=== PATIENT | male | born 1935 | race Caucasian/White ===

== ENCOUNTER 2022-08-03 13:15 | Inpatient (IN) ==
[~2022-08-03 13:15] MED LIST: KETAMINE 50 MG/ML ML IV PRN; MIDAZOLAM 2 MG/2 ML VIAL IV SCH; PROPOFOL 200 MG/20 ML VIAL IV SCH
[2022-08-03] MEDS ORDERED: PIPERACILLIN SODIUM/TAZOBACTAM 4.5 GM in DEXTROSE 5% IN WATER 50 ML IV ONE (15:45)
[2022-08-03] MEDS: fentaNYL 100 MCG/2 ML VIAL IV PRN ×6 (15:49→22:42)
[2022-08-03] MEDS ORDERED: ONDANSETRON 4 MG/2 ML VIAL IV ONE (16:22)
[2022-08-03] MEDS: LACTATED RINGERS 1,000 ML IV SCH ×3 (16:30→22:29)
[2022-08-03] MEDS ORDERED: ONDANSETRON 4 MG/2 ML VIAL ONE ×2 (16:34→18:13)
[2022-08-03] MEDS ORDERED: 0.9 % SODIUM CHLORIDE 250 ML IV ONE (16:56)
[2022-08-03] MEDS ORDERED: [UNRECOGNIZED DRUG - OTHER] IV ONE (17:15)
[2022-08-03] MEDS ORDERED: 0.9 % SODIUM CHLORIDE 250 ML IV SCH (17:15)
[2022-08-03] MEDS ORDERED: HUM PROTHROMBIN CPLX IV ONE (17:15)
[2022-08-03] MEDS ORDERED: EMPTYBAG IV ONE (17:15)
--- NOTE | 2022-08-03 17:30 | Internal Medicine Consult Note ---
HPI Data of Consult Consult date: 08/03/22 Primary Care Provider: Sai Elizabeth DO Consult Narrative Patient Information: Note initiated : 08/03/22 at 5:27 pm Service Date, if different from initiated Date: [] Patient: Fei Rodrigues 86 y/o M admitted on 08/03/22 for Colonoscopy. Chief Complaint: [] cc:: Patient presented for elective colonoscopy due to recurrent diarrhea. The procedure was complicated by perforation. Dr. Mcfarland surgeon was contacted. Patient is on Eliquis, last taken yesterday morning. Kcentra ordered. Patient will need urgent ex lap. Patient denies any chest pain or shortness of breath. Does have abdominal pain. No fevers or chills. Review of Systems: Positives as above. Denies headache/fever/chills/nausea/vomiting/chest pain/cough/dyspnea. Remaining 10 point review of system reviewed negative. CC: Isma Mcfarland MD [facility] All Active Problems Nausea (Acute) Tingling sensation (Acute) Hemarthrosis of knee, right (Acute) Knee injury (Acute) Unstable right knee (Acute) Pain and swelling of right knee (Acute) Medicare annual wellness visit, initial (Acute) PAF (paroxysmal atrial fibrillation) (Chronic) Sinus node dysfunction (Chronic) Nonsustained ventricular tachycardia (Chronic) Lower urinary obstructive symptom (Chronic) BPH w urinary obs/LUTS (Chronic) Diarrhea (Chronic) Closed rib fracture (Acute) CAD (coronary artery disease) (Chronic) Ventricular tachycardia (Acute) Syncope, near (Acute) Hearing loss (Chronic) Cataracts, bilateral (Chronic) Vertigo (Chronic) Malignant neoplasm of bronchus and lung, unspecified site (Chronic) Positional vertigo (Acute) Presence of cardiac pacemaker (Chronic) Bilateral hydrocele (Chronic) Malignant neoplasm of lung (Chronic) Bruit of left carotid artery (Chronic) Weight loss (Chronic) Vasovagal syncope (Chronic 12/18/05) Acute sinusitis (Chronic 02/05/14) Schatzki's ring (Chronic) Lymphadenopathy (Chronic) Peripheral vascular disease (Chronic) Osteoporosis (Chronic) Osteoarthritis (Chronic) Onychomycosis (Chronic) Obstructive uropathy (Chronic) Lichen planus (Chronic) Right inguinal pain (Chronic) Accelerated idioventricular rhythm (Chronic) Nocturnal hypoxemia (Chronic) Hypotension (Chronic) Hyperlipidemia (Chronic) Hydrocele (Chronic 11/29/13) Hammer toe (Chronic) Family history of stress (Chronic) Esophagitis (Chronic) Enlarged prostate (Chronic) Dyspnea (Chronic) Dysphagia (Chronic 11/29/13) Dupuytren's contracture (Chronic) Depression (Chronic) Colon adenoma (Chronic) COPD (chronic obstructive pulmonary disease) (Chronic) Chronic bronchitis (Chronic) Bradycardia (Chronic 12/18/05) Low back pain (Chronic 12/24/06) Actinic keratosis (Chronic) Anemia (Chronic) Abdominal aortic aneurysm (AAA) (Chronic) Medical History Abdominal aortic aneurysm (AAA) Aortic endograft Accelerated idioventricular rhythm Actinic keratosis Acute sinusitis (02/05/14) Anemia BPH w urinary obs/LUTS Improved greatly with Flomax 0.4 mg daily. Bradycardia (12/18/05) Sinus of unknown origina Chronic bronchitis Closed fracture of wrist 10/10 right Closed hip fracture left Closed skull fracture (12/18/05) fell and hit head on the toilet, passed out. Colon adenoma 2004 COPD (chronic obstructive pulmonary disease) Depression Diarrhea Dupuytren's contracture Dysphagia (11/29/13) recurrent Dyspnea Enlarged prostate Esophagitis H/O Family history of stress Gastritis Hammer toe Right second and third toes History of blood transfusion 2 units History of ECG (09/30/15) History of echocardiogram 06/03/15 - [facility]. 03/29/19 - [facility]. History of pacemaker (06/20/10) BIOTRONIK MODEL 380492 History of tobacco abuse Stopped Hydrocele (11/29/13) Bilateral large, left greater than right Hyperlipidemia Now on atorvastatin at 20 mg each day Hypotension Beta-aniyah added Lichen planus Low back pain (12/24/06) Lower urinary obstructive symptom Denies history of BPH or urinary obstructive symptoms. States symptoms just started about 6 months ago. Prostate only 2+ today and nontender. Smooth with no nodules. AUA score is 18 today and he has mixed quality of life due to his symptoms. We will check PSA. We will get urine sample with next set of pelvic pain. Lymphadenopathy Perililar. H/O. Malignant neoplasm of bronchus and lung, unspecified site 2011 non-small cell carcinoma Medicare annual wellness visit, initial Nocturnal hypoxemia Overnight pulse ox from August 2020 shows O2 sats <88% for 56 minutes total overnight. Nonsustained ventricular tachycardia Obstructive uropathy Onychomycosis Osteoarthritis Osteoporosis Peripheral vascular disease Asymptomatic, but abnormal MAGALY -0.43 on the right Arterial duplex of bilateral lower extremities ordered Continue statin. Not on aspirin due to being anticoagulated. Right inguinal pain Schatzki's ring Sinus node dysfunction Pacemaker Squamous cell carcinoma lung Vasovagal syncope (12/18/05) and collapse Weight loss Surgical History History of biopsy (09/15/07) right flank lesion History of bronchoscopy (06/01/12) History of colonoscopy (09/06/13) Two polypoid fragments of colonic mucosa with minimal surface hyperplastic change History of esophagogastroduodenoscopy (EGD) (09/07/11) 09/07/11 MICRO: CHRONIC GASTRITIS WITH INTESTINAL METAPLASIA AND FOCAL ACUTE INFLAMMATION. CONSULT: SCHATZKI'S RING, SMALL HIATAL HERNIA, GASTRITIS. 06/30/16 Schatzki's ring dilated and Egan's esophagus. History of lobectomy of lung History of lobectomy of lung 06/11 RIGHT LOWER LOBE followed by chemotherapy History of lung biopsy (05/02/12) History of surgery (06/01/12) Mediastinoscopy History of thoracotomy (06/01/12) RIGHT LOWER LOBE WAS RESECTED THRU A LIMITED RIGHT THORACOTOMY History of tonsillectomy S/P AAA repair (~2012) Status post-operative repair of closed fracture of left hip 2009 hemiarthroplasty Family History Mother , age 76 Diabetes mellitus Heart disease Father , age 61 Heart disease Peptic ulcer Brother CAD (coronary artery disease) Social History household members: spouse housing: house lives independently: Yes marital status: occupational status: retired smoking status: Former smoker alcohol intake frequency: 0-2 drinks per day substance use type: does not use MEDS/ALLERGIES Home Medications and Allergies Home Medications Medication Instructions Recorded Confirmed Type acetaminophen 325 mg tablet 650 mg PO QDAY PRN Pain 06/07/16 08/03/22 History (Tylenol) calcium carbonate 500 mg-vitamin 1 tab PO QDAY 06/07/16 08/03/22 History D3 15 mcg (600 unit) tablet cyanocobalamin (vitamin B-12) 2,500 mcg sublingual QDAY 06/07/16 06/09/22 History 2,500 mcg sublingual tablet (Vitamin B-12) lactobac cmb #[id number] 1 cap PO QDAY 06/07/16 08/03/22 History [Probiotic and Acidophilus] multivitamin 1 each PO DAILY 06/07/16 08/03/22 History cholecalciferol (vitamin D3) 50 2,000 unit PO QDAY 01/16/19 08/03/22 History mcg (2,000 unit) capsule atorvastatin 20 mg tablet 20 mg PO QDAY 04/03/19 08/03/22 History omega-3 fatty acids 1,000 mg 1,000 mg PO QDAY 04/03/19 08/03/22 History capsule (Fish Oil Concentrate) apixaban 5 mg tablet 5 mg PO BID 09/15/20 08/03/22 History Oxygen #1 ea 10/20/20 06/09/22 Rx tamsulosin 0.4 mg capsule 0.4 mg PO QDAY #90 caps 11/09/21 08/03/22 Rx metoprolol succinate 50 mg 50 mg PO QDAY 03/18/22 08/03/22 History tablet,extended release 24 hr magnesium oxide 400 mg PO QDAY 06/09/22 08/03/22 History Allergies Allergy/AdvReac Type Severity Reaction Status Date / Time codeine AdvReac Mild Nausea Verified 08/03/22 17:15 EXAM Constitutional Vitals: Temp Pulse Resp BP Pulse Ox O2 Del Method 98.1 F 77 20 112/77 94 08/03/22 13:33 08/03/22 16:16 08/03/22 16:16 08/03/22 16:16 08/03/22 16:16 08/03/22 13:33 Exam: General: Alert, Awake, No acute Distress Eyes/N/T: EOMI, PERRL, Head/Neck: neck supple, normocephalic atraumatic CV: RRR, No murmurs, normal s1/s2 Pulm: Clear b/l, no wheezing/rhonchi/rales Abd: TTP, rigid, +BS x4 Ext: no clubbing/cyanosis/edema Neuro: Alert, no focal deficits, moves all extremities, Skin: warm/dry A/P Narrative A/P Narrative: A: *Perforated bowel, complication from colonoscopy: *h/o Afib w/PPM: on eliquis/BB *BPH: *COPD (O2@night): *Chronic diarrhea: The reason he underwent colonoscopy * P: -Dr. Mcfarland for surgical repair -diet per surgery -kcentra -monitor for bleeding -IV lopressor while npo -Home medication reconciliation -pt/ot -ppx: apixaban post-op when ok with surgery / ppi Time Spent With Patient Time: Total time spent is greater than 50% in coordination of care (as documented) at patient's floor/unit and/or counseling patient: Total time spent with greater than 50% in coordination of care (as documented) at patient's floor/unit and/or counseling patient:: Greater than 70 minutes Attestation: Multiple discussions in significant amount of time coordinating care of the patient from GI lab to where the patient needed to go and eventually to the OR.
--- NOTE | 2022-08-03 17:46 | General Surgery Consult Note ---
HPI Data of Consult Consult date: 08/03/22 Requesting physician: Steve Hernandez Primary Care Provider: Sai Elizabeth DO Consult Narrative Patient Information: Note initiated : 08/03/22 at 5:36 pm Service Date, if different from initiated Date: [] Patient: Fei Rodrigues 86 y/o M admitted on 08/03/22 for Colonoscopy. Chief Complaint: [Colonoscopic Perforation] Asked to see Mr Rodrigues after an elective Colonoscopy earlier this afternoon resulted in a Colonoscopic Perforation thought to be in the Sigmoid Colon. Patient was undergoing Lower Endoscopy for further work up and investigation of Refractory Diarrhea. He denies any prior open abdominal surgery but does have extensive past medical issues including AAA repair with Endograft, lung resection for malignancy and others as well. He is currently anticoagulated on oral Eliquis that was not held prior to his procedure today per reports. His son is in attendance as well and issues are discussed. He currently is in quite a but of abdominal pain, IVFs and IV ABs have been started. A Pacemaker is in place. cc:: CC: Isma Mcfarland MD Review of Systems All systems: reviewed and no additional remarkable complaints except as stated Review of systems: Gen no recent change ENT no change Neuro stable Pulm no recent issues Cardiac pacer in place, on Eliquis GI see HPI no changes Heme on eliquis PFSH PFSH All Active Problems (Updated 08/03/22 @ 17:56 by Isma Mcfarland MD) Colon perforation (Acute) Nausea (Acute) Tingling sensation (Acute) Hemarthrosis of knee, right (Acute) Knee injury (Acute) Unstable right knee (Acute) Pain and swelling of right knee (Acute) Medicare annual wellness visit, initial (Acute) PAF (paroxysmal atrial fibrillation) (Chronic) Sinus node dysfunction (Chronic) Nonsustained ventricular tachycardia (Chronic) Lower urinary obstructive symptom (Chronic) BPH w urinary obs/LUTS (Chronic) Diarrhea (Chronic) Closed rib fracture (Acute) CAD (coronary artery disease) (Chronic) Ventricular tachycardia (Acute) Syncope, near (Acute) Hearing loss (Chronic) Cataracts, bilateral (Chronic) Vertigo (Chronic) Malignant neoplasm of bronchus and lung, unspecified site (Chronic) Positional vertigo (Acute) Presence of cardiac pacemaker (Chronic) Bilateral hydrocele (Chronic) Malignant neoplasm of lung (Chronic) Bruit of left carotid artery (Chronic) Weight loss (Chronic) Vasovagal syncope (Chronic 12/18/05) Acute sinusitis (Chronic 02/05/14) Schatzki's ring (Chronic) Lymphadenopathy (Chronic) Peripheral vascular disease (Chronic) Osteoporosis (Chronic) Osteoarthritis (Chronic) Onychomycosis (Chronic) Obstructive uropathy (Chronic) Lichen planus (Chronic) Right inguinal pain (Chronic) Accelerated idioventricular rhythm (Chronic) Nocturnal hypoxemia (Chronic) Hypotension (Chronic) Hyperlipidemia (Chronic) Hydrocele (Chronic 11/29/13) Hammer toe (Chronic) Family history of stress (Chronic) Esophagitis (Chronic) Enlarged prostate (Chronic) Dyspnea (Chronic) Dysphagia (Chronic 11/29/13) Dupuytren's contracture (Chronic) Depression (Chronic) Colon adenoma (Chronic) COPD (chronic obstructive pulmonary disease) (Chronic) Chronic bronchitis (Chronic) Bradycardia (Chronic 12/18/05) Low back pain (Chronic 12/24/06) Actinic keratosis (Chronic) Anemia (Chronic) Abdominal aortic aneurysm (AAA) (Chronic) Medical History Abdominal aortic aneurysm (AAA) Aortic endograft Accelerated idioventricular rhythm Actinic keratosis Acute sinusitis (02/05/14) Anemia BPH w urinary obs/LUTS Improved greatly with Flomax 0.4 mg daily. Bradycardia (12/18/05) Sinus of unknown origina Chronic bronchitis Closed fracture of wrist 10/10 right Closed hip fracture left Closed skull fracture (12/18/05) fell and hit head on the toilet, passed out. Colon adenoma 2004 COPD (chronic obstructive pulmonary disease) Depression Diarrhea Dupuytren's contracture Dysphagia (11/29/13) recurrent Dyspnea Enlarged prostate Esophagitis H/O Family history of stress Gastritis Hammer toe Right second and third toes History of blood transfusion 2 units History of ECG (09/30/15) History of echocardiogram 06/03/15 - [facility]. 03/29/19 - [facility]. History of pacemaker (06/20/10) BIOTRONIK MODEL 450404 History of tobacco abuse Stopped Hydrocele (11/29/13) Bilateral large, left greater than right Hyperlipidemia Now on atorvastatin at 20 mg each day Hypotension Beta-aniyah added Lichen planus Low back pain (12/24/06) Lower urinary obstructive symptom Denies history of BPH or urinary obstructive symptoms. States symptoms just started about 6 months ago. Prostate only 2+ today and nontender. Smooth with no nodules. AUA score is 18 today and he has mixed quality of life due to his symptoms. We will check PSA. We will get urine sample with next set of pelvic pain. Lymphadenopathy Perililar. H/O. Malignant neoplasm of bronchus and lung, unspecified site 2011 non-small cell carcinoma Medicare annual wellness visit, initial Nocturnal hypoxemia Overnight pulse ox from August 2020 shows O2 sats <88% for 56 minutes total overnight. Nonsustained ventricular tachycardia Obstructive uropathy Onychomycosis Osteoarthritis Osteoporosis Peripheral vascular disease Asymptomatic, but abnormal MAGALY -0.43 on the right Arterial duplex of bilateral lower extremities ordered Continue statin. Not on aspirin due to being anticoagulated. Right inguinal pain Schatzki's ring Sinus node dysfunction Pacemaker Squamous cell carcinoma lung Vasovagal syncope (12/18/05) and collapse Weight loss Surgical History History of biopsy (09/15/07) right flank lesion History of bronchoscopy (06/01/12) History of colonoscopy (09/06/13) Two polypoid fragments of colonic mucosa with minimal surface hyperplastic change History of esophagogastroduodenoscopy (EGD) (09/07/11) 09/07/11 MICRO: CHRONIC GASTRITIS WITH INTESTINAL METAPLASIA AND FOCAL ACUTE INFLAMMATION. CONSULT: SCHATZKI'S RING, SMALL HIATAL HERNIA, GASTRITIS. 06/30/16 Schatzki's ring dilated and Egan's esophagus. History of lobectomy of lung History of lobectomy of lung 06/11 RIGHT LOWER LOBE followed by chemotherapy History of lung biopsy (05/02/12) History of surgery (06/01/12) Mediastinoscopy History of thoracotomy (06/01/12) RIGHT LOWER LOBE WAS RESECTED THRU A LIMITED RIGHT THORACOTOMY History of tonsillectomy S/P AAA repair (~2012) Status post-operative repair of closed fracture of left hip 2010 hemiarthroplasty Family History Mother , age 76 Diabetes mellitus Heart disease Father , age 61 Heart disease Peptic ulcer Brother CAD (coronary artery disease) Social History household members: spouse housing: house lives independently: Yes marital status: occupational status: retired smoking status: Former smoker alcohol intake frequency: 0-2 drinks per day substance use type: does not use MEDS/ALLERGIES Home Medications and Allergies Home Medications Medication Instructions Recorded Confirmed Type acetaminophen 325 mg tablet 650 mg PO QDAY PRN Pain 06/07/16 08/03/22 History (Tylenol) calcium carbonate 500 mg-vitamin 1 tab PO QDAY 06/07/16 08/03/22 History D3 15 mcg (600 unit) tablet cyanocobalamin (vitamin B-12) 2,500 mcg sublingual QDAY 06/07/16 06/09/22 History 2,500 mcg sublingual tablet (Vitamin B-12) lactobac cmb #[id number] 1 cap PO QDAY 06/07/16 08/03/22 History [Probiotic and Acidophilus] multivitamin 1 each PO DAILY 06/07/16 08/03/22 History cholecalciferol (vitamin D3) 50 2,000 unit PO QDAY 01/16/19 08/03/22 History mcg (2,000 unit) capsule atorvastatin 20 mg tablet 20 mg PO QDAY 04/03/19 08/03/22 History omega-3 fatty acids 1,000 mg 1,000 mg PO QDAY 04/03/19 08/03/22 History capsule (Fish Oil Concentrate) apixaban 5 mg tablet 5 mg PO BID 09/15/20 08/03/22 History Oxygen #1 ea 10/20/20 06/09/22 Rx tamsulosin 0.4 mg capsule 0.4 mg PO QDAY #90 caps 11/09/21 08/03/22 Rx metoprolol succinate 50 mg 50 mg PO QDAY 03/18/22 08/03/22 History tablet,extended release 24 hr magnesium oxide 400 mg PO QDAY 06/09/22 08/03/22 History Allergies Allergy/AdvReac Type Severity Reaction Status Date / Time codeine AdvReac Mild Nausea Verified 08/03/22 17:15 Physical Examination Vital Signs Vital signs: Temp Pulse Resp BP Pulse Ox O2 Del Method 98.1 F 77 20 112/77 94 08/03/22 13:33 08/03/22 16:16 08/03/22 16:16 08/03/22 16:16 08/03/22 16:16 08/03/22 13:33 General physical appearance General physical exam: other (conversant but in some pain and mild distress, fully alert and oriented ) Eyes Eye exam: normal ocular movement; negative icteric ENT ENT exam: normal pinna and other Head Head exam IM: Present atraumatic, normal inspection and normocephalic Neck Neck exam: other (soft and supple, non tender ) Cardiovascular Cardiovascular exam IM: Present normal rate and rhythm Respiratory Respiratory exam: normal expansion and normal respiratory effort Abdomen Abdomen: Present tender, guarding and distended Integumentary Integumentary: Present other (normal appearing intact skin ) Neurologic Neurologic: Present other (grossly intact) Results Labs Labs: All other labs normal. A/P Assessment and plan (1) Colon perforation: Assessment and plan: Colonoscopic Perforation with an Acute Abdomen Recommend Emergency Surgery as soon as his current Anticoagulation can be reliably reversed - Medicine has been consulted regarding Anticoagulation mgmt and medical issues and will manage Kcentra/planned reversal Issues discussed at length with patient and family regarding risk of adverse outcome, bleeding, , need for additional surgery, stomal diversion, bowel resection, drain placement, and other concerns with a full review of Risks, Benefits, Potential Complications and Alternative Treatment Options all of which have been discussed including option to attempt at transfer to a possible higher level of care They have agreed to and indicated a wish to proceed with planned Ex Lap, Resection, Diversion, Washout and Drainage Status: Acute Time Spent With Patient Time: Total time spent is greater than 50% in coordination of care (as documented) at patient's floor/unit and/or counseling patient:
[2022-08-03] MEDS ORDERED: CIPROFLOXACIN 400 MG/200 ML BAG IV ONE (18:00)
[2022-08-03] MEDS ORDERED: metroNIDAZOLE 500 MG/100 ML BAG IV ONE (18:01)
[2022-08-03] MEDS ORDERED: TRANEXAMIC ACID 1,000 MG/10 ML VIAL ONE (18:13)
[2022-08-03] MEDS ORDERED: MAGNESIUM SULFATE 2 GM/50 ML BAG IV ONE (18:13)
[2022-08-03] MEDS ORDERED: SUCCINYLCHOLINE 20 MG/ML ML IV ONE (18:13)
[2022-08-03] MEDS ORDERED: DEXAMETHASONE 10 MG/ML VIAL ONE (18:13)
[2022-08-03] MEDS ORDERED: PROPOFOL 200 MG/20 ML VIAL IV ONE (18:13)
[2022-08-03] MEDS ORDERED: PHENYLephrine 1 MG/10 ML SYRINGE (ANEST) ONE (18:13)
[2022-08-03] MEDS ORDERED: methylPREDNISolone SOD SUCC 125 MG/2 ML VIAL ONE (18:13)
[2022-08-03] MEDS ORDERED: KETAMINE 50 MG/ML Syringe (ANEST) IV ONE (18:13)
[2022-08-03] MEDS ORDERED: ROCURONIUM 10 MG/ML ML IV ONE (18:13)
[2022-08-03] MEDS ORDERED: HETASTARCH 6% 500 ML BAG IV ONE (18:13)
[2022-08-03] MEDS ORDERED: fentaNYL 250 MCG/5 ML VIAL IV ONE (18:13)
[2022-08-03] MEDS ORDERED: LIDOCAINE HCL/PF 100 MG/5 ML SYRINGE IV ONE (18:13)
[2022-08-03] MEDS ORDERED: ESMOLOL 100 MG/10 ML VIAL IV ONE (18:13)
[2022-08-03] MEDS ORDERED: GLYCOPYRROLATE 0.2 MG/ML VIAL IV ONE (18:13)
[2022-08-03] MEDS ORDERED: VASOPRESSIN 20 UNIT/ML VIAL ONE (18:13)
[2022-08-03] MEDS ORDERED: EPINEPHrine 1 MG/10 ML (1:10,000) SYRINGE IV ONE (18:13)
[2022-08-03 18:27] LABS: Basophils # (Auto) 0.04 K/mcL (0.00-0.30); Basophils % (Auto) 0.4 % (0.0-2.0); Eosinophils # (Auto) 0.06 K/mcL (0.00-0.70); Eosinophils % (Auto) 0.6 % (0.0-7.0); Hematocrit 43.3 % (40.1-51.0); Hemoglobin 13.8 g/dL (13.7-17.5); Lymphocytes # (Auto) 0.71 K/mcL (1.50-4.80); Lymphocytes % (Auto) 6.8 % (15.5-49.0); Mean Cell Volume 96.2 fL (80.0-100.0); Mean Corpuscular HGB Conc 31.9 g/dL (31.0-36.0); Mean Platelet Volume 10.1 fL (8.8-12.5); Monocytes # (Auto) 0.55 K/mcL (0.10-0.90); Monocytes % (Auto) 5.3 % (1.0-12.0); Neutrophils % (Auto) 86.6 % (38.0-78.0); Platelet Count 250 K/mcL (140-440); Red Cell Distribution Width 13.8 % (11.5-14.5); WBC 10.5 K/mcL (4.5-11.0)
[2022-08-03 18:48] LABS: Blood Urea Nitrogen 14 mg/dL (8-23); Calcium 9.4 mg/dL (8.6-10.4); Carbon Dioxide 23 mmol/L (22-30); Chloride 101 mmol/L (96-108); Glomerular Filtration Rate 77; Glucose 127 mg/dL (70-105)
[2022-08-03] MEDS ORDERED: METHOCARBAMOL 1,000 MG/10 ML VIAL IV PRN (20:24)
[2022-08-03] MEDS ORDERED: LACTATED RINGERS 250 ML IV PRN (20:24)
[2022-08-03] MEDS ORDERED: METOPROLOL TARTRATE 5 MG/5 ML VIAL IV PRN (20:24)
[2022-08-03] MEDS ORDERED: LABETALOL 5 MG/ML ML IV PRN (20:24)
[2022-08-03] MEDS ORDERED: ACETAMINOPHEN 1,000 MG/100 ML BAG IV ONE (20:24)
[2022-08-03] MEDS ORDERED: IPRATROPIUM/ALBUTEROL 3 ML AMPUL.NEB NEB PRN (20:24)
[2022-08-03] MEDS ORDERED: ONDANSETRON 4 MG/2 ML VIAL IV PRN ×3 (20:24→23:41)
[2022-08-03] MEDS ORDERED: NALOXONE HCL 0.4 MG/ML VIAL IV PRN (20:24)
[2022-08-03] MEDS ORDERED: LACTATED RINGERS 1,000 ML IV SCH (20:30)
[2022-08-03] MEDS ORDERED: BACITRACIN TOPICAL OINT 15 GM TUBE TOPICAL ONE (21:19)
--- NOTE | 2022-08-03 22:37 | Brief Operative Note ---
Brief Operative Note Date of procedure: 08/03/22 Pre-op diagnosis: Colonic Perforation Post-op diagnosis: same Procedure: Ex Lap, Resection of Sigmoid Colonic Perforation, End Colostomy, Washout and Drain Placement Grafts/Implants: Yes (19 FR JPD) Anesthesia: GETA Findings: Perforation of Distal Sigmoid Colon with Full Transection just proximal to the RectoSigmoid Junction Complications: none Surgeon: Isma Mcfarland Estimated blood loss (cc): 100 Specimens Removed/Pathology: other (Resected Sigmoid Perforation ) Condition: stable Disposition: PACU
[2022-08-03] MEDS ORDERED: HYDROmorphone 0.5 MG/0.5 ML SYRINGE IV PRN (22:44)
[2022-08-03] MEDS ORDERED: MAGNESIUM SULFATE 2 GM/50 ML BAG IV PRN (23:41)
[2022-08-03] MEDS ORDERED: POTASSIUM CHLORIDE 20 MEQ TABLET PO PRN ×2 (23:41)
[2022-08-03] MEDS ORDERED: morphine 4 MG/ML VIAL IV PRN (23:41)
[2022-08-03] MEDS ORDERED: POLYETHYLENE GLYCOL 3350 17 GM PACKET PO PRN (23:41)
[2022-08-03] MEDS ORDERED: ACETAMINOPHEN 325 MG TABLET PO PRN (23:41)
[2022-08-03] MEDS ORDERED: POTASSIUM CHLORIDE 40 MEQ in DEXTROSE 5% IN WATER 500 ML IV PRN (23:41)
[2022-08-04] MEDS: HYDROmorphone 0.5 MG/0.5 ML SYRINGE IV PRN ×2 (00:33→03:03)
[2022-08-04] MEDS: DEXTROSE 5%-LR 1,000 ML IV SCH ×3 (00:37→20:51)
[2022-08-04] MEDS: PIPERACILLIN SODIUM/TAZOBACTAM 3.375 GM in DEXTROSE 5% IN WATER 50 ML IV SCH ×4 (00:38→18:15)
[2022-08-04] MEDS: 0.9 % SODIUM CHLORIDE 10 ML SYRINGE IV SCH ×8 (00:39→21:59)
[2022-08-04 01:24] LABS: Basophils # (Auto) 0.01 K/mcL (0.00-0.30); Basophils % (Auto) 0.1 % (0.0-2.0); Eosinophils # (Auto) 0 K/mcL (0.00-0.70); Eosinophils % (Auto) 0 % (0.0-7.0); Hematocrit 39.7 % (40.1-51.0); Hemoglobin 12.1 g/dL (13.7-17.5); Lymphocytes # (Auto) 0.29 K/mcL (1.50-4.80); Mean Corpuscular HGB Conc 30.5 g/dL (31.0-36.0); Mean Platelet Volume 9.8 fL (8.8-12.5); Neutrophils % (Auto) 93.6 % (38.0-78.0); Platelet Count 173 K/mcL (140-440); RBC 3.97 M/mcL (4.63-6.08); Red Cell Distribution Width 13.6 % (11.5-14.5); WBC 14.9 K/mcL (4.5-11.0)
[2022-08-04 02:33] LABS: ALT/SGPT 13 U/L (<40); AST/SGOT 19 U/L (<40); Albumin/Globulin Ratio 1.2 (1.0-2.3); Alkaline Phosphatase 68 U/L (39-117); Bilirubin,Direct 0.7 mg/dL (<0.3); Bilirubin,Total 1.1 mg/dL (0.1-1.0); Blood Urea Nitrogen 11 mg/dL (8-23); Calcium 8.3 mg/dL (8.6-10.4); Carbon Dioxide 15 mmol/L (22-30); Chloride 102 mmol/L (96-108); Globulin 2.5 gm/dL (2.2-3.7); Glomerular Filtration Rate 81; Glucose 148 mg/dL (70-105); Lactate Dehydrogenase 189 U/L (135-225); Phosphorous 3.9 mg/dL (2.5-4.5); Triglycerides 61 mg/dL (<150); Uric Acid 4.1 mg/dL (2.5-8.0)
[2022-08-04] MEDS ORDERED: MAGNESIUM SULFATE 2 GM/50 ML BAG IV ONE (03:49)
[2022-08-04] MEDS: LACTATED RINGERS 1,000 ML IV SCH (04:46)
[2022-08-04] MEDS ORDERED: SODIUM BICARBONATE 50 MEQ/50 ML VIAL IV ONE (04:57)
[2022-08-04] MEDS ORDERED: SODIUM BICARBONATE 50 MEQ/50 ML VIAL ONE (05:35)
[2022-08-04 07:20] LABS: Basophils # (Auto) 0.03 K/mcL (0.00-0.30); Basophils % (Auto) 0.2 % (0.0-2.0); Eosinophils # (Auto) 0 K/mcL (0.00-0.70); Eosinophils % (Auto) 0 % (0.0-7.0); Hemoglobin 12.6 g/dL (13.7-17.5); Lymphocytes # (Auto) 0.23 K/mcL (1.50-4.80); Lymphocytes % (Auto) 1.4 % (15.5-49.0); Mean Cell Volume 100.2 fL (80.0-100.0); Mean Corpuscular HGB Conc 30.7 g/dL (31.0-36.0); Mean Platelet Volume 10.1 fL (8.8-12.5); Monocytes # (Auto) 0.61 K/mcL (0.10-0.90); Monocytes % (Auto) 3.8 % (1.0-12.0); Neutrophils % (Auto) 94.1 % (38.0-78.0); Platelet Count 166 K/mcL (140-440); RBC 4.09 M/mcL (4.63-6.08); Red Cell Distribution Width 13.9 % (11.5-14.5); WBC 16.2 K/mcL (4.5-11.0)
[2022-08-04] MEDS: PANTOPRAZOLE 40 MG VIAL IV SCH (07:29)
--- NOTE | 2022-08-04 08:07 | Internal Med Progress Note ---
SUBJECTIVE Subjective Patient information: Note initiated : 08/04/22 at 8:03 am Service Date, if different from initiated Date: [] Patient: Fei Rodrigues 86 y/o M admitted on 08/03/22 for Colonoscopy. Chief Complaint: [] Interval history: Chief Complaint: [] HPI: Patient presented for elective colonoscopy due to recurrent diarrhea. The procedure was complicated by perforation. Dr. Mcfarland surgeon was contacted. Patient is on Eliquis, last taken yesterday morning. Kcentra ordered. Patient will need urgent ex lap. Patient denies any chest pain or shortness of breath. Does have abdominal pain. No fevers or chills. 08/04 Patient seems to feel little bit better today. Does have a headache and some chronic shortness of breath but no other complaints. Vital signs stable. Good urine output. Review of Systems: denies /fever/chills/nausea/vomiting/chest pain/diarrhea. Otherwise see above. Constitutional Vitals: Vital Signs Temp Pulse Resp BP Pulse Ox O2 Del Method O2 Flow Rate 97.6 F 87 11 L 128/75 92 3 08/04/22 04:16 08/04/22 07:01 08/04/22 07:01 08/04/22 07:01 08/04/22 07:01 08/04/22 07:01 08/04/22 07:01 Period Temp Pulse Resp BP Sys/Lovell Pulse Ox O2 Del Method O2 Flow Rate Last 24 Hr 96.7 F-98.1 F 62-115 0-36 75-141/38-97 83-99 Nasal Cannula- Room Air 3-6 Intake and Output 08/03/22 08/04/22 08/04/22 21:59 05:59 13:59 Intake Total 280 5241 0 Output Total 1087 105 Balance 280 4154 -105 Weight 66.088 kg Intake & Output: Intake & Output 08/03/22 08/04/22 08/04/22 21:59 05:59 13:59 Intake Total 280 5241 0 Output Total 1087 105 Balance 280 4154 -105 Weight 66.088 kg Intake: IV 280 1091 Sodium Chloride 0.9% 250 ml @ 0 0 Wide Open IV [facility] Rx#: [id number] Kcentra 1 Unit 2,178 Unit In 80 Emptybag 80 ml @ 415 mls/hr IV ONCE ONE Rx#:[id number] Lactated Ringers 1,000 ml @ 100 791 mls/hr IV .Q10H [facility] Rx#: [id number] Zosyn 3.375 gm In Dextrose 5% 50 in Water 50 ml @ 100 mls/hr IV Q6H [facility] Rx#:[id number] Zosyn 4.5 gm In Dextrose 5% in 50 Water 50 ml @ 100 mls/hr IV ONCE ONE Rx#:[id number] Oral 0 0 Tube Feeding 0 IV - Manual Only 4150 Output: Gastric Drainage 50 Right Nare NG/OG 50 Drainage 190 Left Lower Abdomen TENA Drain 190 Drainage 30 Left Lower Abdomen TENA Drain 30 Urine Catheter Amount 647 75 Estimated Blood Loss 200 Other: Urine Appearance Clear Clear Uretheral (Michaels) Clear Cloudy Urine Color Dark Yellow Light Natalya Uretheral (Michaels) Dark Yellow Dark Yellow Exam: General: Alert, Awake, No acute Distress Eyes/N/T: EOMI, Head/Neck: neck supple, CV: RRR, No murmurs, Pulm: Clear b/l, no wheezing/rhonchi/rales Abd: TTP, decreased BS x4 Ext: no clubbing/cyanosis/edema Neuro: Alert, no focal deficits, moves all extremities, Skin: warm/dry OBJ DATA Labs CBC & Chem 7: 08/04/22 05:14 08/04/22 05:13 Labs: Abnormal Lab Results 08/04/22 08/03/22 08/03/22 05:14 23:57 23:57 WBC 16.2 H 14.9 H RBC 4.09 L 3.97 L Hgb 12.6 L 12.1 L Hct 39.7 L MCV 100.2 H MCHC 30.7 L 30.5 L Neut % (Auto) 94.1 H 93.6 H Lymph % (Auto) 1.4 L 2.0 L Lymph # (Auto) 0.23 L 0.29 L Immature Gran # 0.08 H Absolute Neutrophils 15.20 H 13.92 H Carbon Dioxide 15 L Anion Gap 18.0 H Glucose 148 H Calcium 8.3 L Magnesium 1.4 L Total Bilirubin 1.1 H Direct Bilirubin 0.7 H Total Protein 5.5 L Albumin 3.0 L 08/03/22 08/03/22 17:35 17:35 WBC RBC 4.50 L Hgb Hct MCV MCHC Neut % (Auto) 86.6 H Lymph % (Auto) 6.8 L Lymph # (Auto) 0.71 L Immature Gran # Absolute Neutrophils 9.06 H Carbon Dioxide Anion Gap Glucose 127 H Calcium Magnesium Total Bilirubin Direct Bilirubin Total Protein Albumin Meds: Medications Acetaminophen (Acetaminophen 325 Mg Tablet) 650 mg PO Q6HP PRN; Protocol PRN Reason: Per Pain Protocol/Fever > 101 Albuterol/Ipratropium (Ipratropium/Albuterol 3 Ml Ampul.Neb) 3 ml NEB Q4HP PRN PRN Reason: Shortness Of Breath Hydromorphone HCl (Hydromorphone 0.5 Mg/0.5 Ml Syringe) 0.5 - 1 mg IV Q1HP PRN; Protocol PRN Reason: Per Pain Protocol Hydromorphone HCl (Hydromorphone 0.5 Mg/0.5 Ml Syringe) 0 mg IV Q2HP PRN PRN Reason: Pain Last Admin: 08/04/22 03:03 Dose: 0.5 mg Dextrose/Lactated Ringer's (Dextrose 5%-Lactated Ringers) 1,000 mls @ 100 mls/hr IV .Q10H [facility] Last Admin: 08/04/22 00:37 Dose: 100 mls/hr Piperacillin Sod/Tazobactam (Sod 3.375 gm/ Dextrose) 50 mls @ 100 mls/hr IV Q6H [facility]; Protocol Last Admin: 08/04/22 05:35 Dose: 100 mls/hr Potassium Chloride 40 meq/ (Dextrose) 520 mls @ 130 mls/hr IV UD PRN PRN Reason: Potassium < 3 Magnesium Sulfate (Magnesium Sulfate) 2 gm in 50 mls @ 50 mls/hr IV UD PRN PRN Reason: Magnesium </= 1.6 Last Admin: 08/04/22 03:37 Dose: 50 mls/hr Metoprolol Tartrate (Metoprolol Tartrate 5 Mg/5 Ml Vial) 5 mg IV Q2HP PRN PRN Reason: Tachyarrhythmias HR>110 Morphine Sulfate (Morphine 4 Mg/Ml Vial) 0 mg IV Q3HP PRN PRN Reason: Pain Ondansetron HCl (Ondansetron 4 Mg/2 Ml Vial) 4 mg IV Q6HP PRN PRN Reason: Nausea And Vomiting Ondansetron HCl (Ondansetron 4 Mg/2 Ml Vial) 4 mg IV Q4HP PRN PRN Reason: Nausea And Vomiting Pantoprazole Sodium (Pantoprazole 40 Mg Vial) 40 mg IV QAMAC [facility] Last Admin: 08/04/22 07:29 Dose: 40 mg Polyethylene Glycol (Polyethylene Glycol 3350 17 Gm Packet) 17 gm PO DAILYP PRN PRN Reason: Constipation Potassium Chloride (Potassium Chloride 20 Meq Tablet) 40 meq PO UD PRN PRN Reason: Potssium is 3-3.5 Potassium Chloride (Potassium Chloride 20 Meq Tablet) 40 meq PO UD PRN PRN Reason: Potassium < 3 Sodium Chloride (0.9 % Sodium Chloride 10 Ml Syringe) 10 ml IV Q8 [facility] Last Admin: 08/04/22 07:29 Dose: 10 ml Sodium Chloride (0.9 % Sodium Chloride 10 Ml Syringe) 10 ml IV Q8 [facility] Last Admin: 08/04/22 05:34 Dose: 10 ml A/P Narrative A/P Narrative: A: 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) *med acidosis: *Hypomagnesemia: *h/o Afib w/PPM: on eliquis/BB *BPH: *COPD (O2@night): *Chronic diarrhea: The reason he underwent colonoscopy * P: -Dr. Mcfarland for surgical repair -diet per surgery -Monitor and replace electrolytes -monitor for bleeding -IV lopressor while npo -pt/ot -ppx: apixaban post-op when ok with surgery, scd for now / ppi Time Spent With Patient Time: Total time spent is greater than 50% in coordination of care (as documented) at patient's floor/unit and/or counseling patient: Total time spent with greater than 50% in coordination of care (as documented) at patient's floor/unit and/or counseling patient:: 25 - 35 minutes QUALITY VTE Deep Vein Thrombosis/Pulmonary Embolism Present on Admission: No
[2022-08-04 08:53] LABS: ALT/SGPT 13 U/L (<40); AST/SGOT 19 U/L (<40); Albumin 3.1 gm/dL (3.2-5.2); Albumin/Globulin Ratio 1.2 (1.0-2.3); Alkaline Phosphatase 70 U/L (39-117); Bilirubin,Direct 0.5 mg/dL (<0.3); Bilirubin,Total 0.9 mg/dL (0.1-1.0); Blood Urea Nitrogen 10 mg/dL (8-23); Calcium 8.3 mg/dL (8.6-10.4); Carbon Dioxide 17 mmol/L (22-30); Chloride 102 mmol/L (96-108); Globulin 2.5 gm/dL (2.2-3.7); Glomerular Filtration Rate 77; Glucose 240 mg/dL (70-105); Lactate Dehydrogenase 203 U/L (135-225); Phosphorous 3.7 mg/dL (2.5-4.5); Triglycerides 36 mg/dL (<150); Uric Acid 4.4 mg/dL (2.5-8.0)
[2022-08-04] MEDS: METOPROLOL TARTRATE 5 MG/5 ML VIAL IV SCH ×3 (09:03→18:15)
--- NOTE | 2022-08-04 09:07 | Colonoscopy Procedure Note ---
Colonoscopy Procedure Notes Procedure Information Patient information: Note initiated : 08/04/22 at 9:06 am Patient: Fei Rodrigues 86 y/o M admitted on 08/03/22 for Colonoscopy. Date of Procedure: 08/03/22 Pre-op diagnosis general: Diarrhea. Post-op diagnosis: Tight sigmoid diverticular stricture with perforation. Procedure: Colonoscopy Procedure narrative: The procedure, alternatives and risks were discussed with the patient and the patient's questions were answered. With endoscopist-administered intravenous sedation, the Olympus colonoscope was introduced into the rectum and advanced to the sigmoid colon where an extremely tight fixed sigmoid loop with multiple diverticula was encountered. It was very difficult to traverse, but was advanced to the hepatic flexure. Unfortunately, the patient suffered a sigmoid perforation, which was recognized immediately and general surgery was consulted. We suspect his diarrhea complaints were overflow in nature due to the stricture. Anesthesia: conscious sedation Findings: Tight sigmoid diverticular stricture with perforation. Complications: other Complications Description: Patient suffered a sigmoid perforation. Surgeon: Steve Hernandez Estimated blood loss: 0 Specimens Removed/Pathology: none sent Condition: stable Disposition: other (Dr Mcfarland, surgery, consulted.) Assessment: Tight sigmoid diverticular stricture with perforation.
[2022-08-04] MEDS: TAMSULOSIN 0.4 MG CAPSULE PO SCH (10:59)
[2022-08-04] MEDS: ATORVASTATIN 20 MG TABLET PO SCH (11:00)
--- NOTE | 2022-08-04 11:34 | General Surgery Progress Note ---
SUBJECTIVE Subjective Patient information: Note initiated : 08/04/22 at 11:26 am Service Date, if different from initiated Date: [] Patient: Fei Rodrigues 86 y/o M admitted on 08/03/22 for Colonoscopy. Chief Complaint: [] Post Emergent Ex Lap last night following Colonoscopic Perforation - has done well overnight and pain control ok this am. NGT is in place. Constitutional Vitals: Vital Signs Temp Pulse Resp BP Pulse Ox O2 Del Method O2 Flow Rate 97.6 F 82 12 126/90 91 3 08/04/22 08:01 08/04/22 10:01 08/04/22 10:01 08/04/22 10:01 08/04/22 10:01 08/04/22 10:01 08/04/22 10:01 Period Temp Pulse Resp BP Sys/Lovell Pulse Ox O2 Del Method O2 Flow Rate Last 24 Hr 96.7 F-98.1 F 62-115 0-36 75-141/38-97 83-99 Nasal Cannula- Room Air 0-6 Intake and Output 08/03/22 08/04/22 08/04/22 21:59 05:59 13:59 Intake Total 280 5291 1050 Output Total 1087 270 Balance 280 4204 780 Weight 145 lb 11.2 oz Intake & Output: Intake & Output 08/03/22 08/04/22 08/04/22 21:59 05:59 13:59 Intake Total 280 5291 1050 Output Total 1087 270 Balance 280 4204 780 Weight 145 lb 11.2 oz Intake: IV 280 1141 1050 Sodium Chloride 0.9% 250 ml @ 0 0 Wide Open IV [facility] Rx#: [id number] Dextrose 5%-Lactated Ringers 1, 1000 000 ml @ 100 mls/hr IV .Q10H [facility] Rx#:[id number] Kcentra 1 Unit 2,178 Unit In 80 Emptybag 80 ml @ 415 mls/hr IV ONCE ONE Rx#:[id number] Lactated Ringers 1,000 ml @ 100 791 mls/hr IV .Q10H [facility] Rx#: [id number] Zosyn 3.375 gm In Dextrose 5% 50 50 in Water 50 ml @ 100 mls/hr IV Q6H [facility] Rx#:[id number] Zosyn 4.5 gm In Dextrose 5% in 50 Water 50 ml @ 100 mls/hr IV ONCE ONE Rx#:[id number] Oral 0 0 Tube Feeding 0 IV - Manual Only 4150 Output: Gastric Drainage 50 Right Nare NG/OG 50 Drainage 190 Left Lower Abdomen TENA Drain 190 Drainage 30 Left Lower Abdomen TENA Drain 30 Urine Catheter Amount 647 240 Estimated Blood Loss 200 Other: Urine Appearance Clear Clear Uretheral (Michaels) Clear Cloudy Urine Color Dark Yellow Light Natalya Uretheral (Michaels) Dark Yellow Dark Yellow Urine Odor Normal Exam: Conversant this am, pain control seems ok, no chest pain or SOB Respiratory Additional comments: on supplemental O2, no evident respiratory distress Cardiovascular Additional comments: Normal paced rhythm GI/Abdominal Additional comments: dressing in place, ostomy congested but viable, NGT in place, drain is fairly bloody Extremities Exam Additional comments: well perfused A/P Assessment and plan (1) Colon perforation: Status: Acute Plan POD #1 Ex Lap, Resection Sigmoid Perforation, End Colostomy with Washout and Drainage Continue NGT for now with bowel rest, sips and chips ok Hold Eliquis and Lovenox for now OOB as able Ostomy and Wound Care Time Spent With Patient Time: Total time spent is greater than 50% in coordination of care (as documented) at patient's floor/unit and/or counseling patient:
--- NOTE | 2022-08-04 13:44 | Internal Med Progress Note ---
SUBJECTIVE Subjective Patient information: Note initiated : 08/04/22 at 1:39 pm Service Date, if different from initiated Date: [] Patient: Fei Rodrigues 86 y/o M admitted on 08/03/22 for Colonoscopy. Chief Complaint: [] Interval history: Chief Complaint: [] HPI: Patient presented for elective colonoscopy due to recurrent diarrhea. The procedure was complicated by perforation. Dr. Mcfarland surgeon was contacted. Patient is on Eliquis, last taken yesterday morning. Kcentra ordered. Patient will need urgent ex lap. Patient denies any chest pain or shortness of breath. Does have abdominal pain. No fevers or chills. 08/04 Patient seems to feel little bit better today. Does have a headache and some chronic shortness of breath but no other complaints. Vital signs stable. Good urine output. 08/05 No significant events overnight, 2 L/min nasal oxygen supplementation cannula today. Vitals otherwise stable. Patient is confused, likely has postoperative delirium. Started melatonin at bedtime. Continues on antibiotics per surgery. Physical exam Head: Atraumatic, normal inspection. Eyes: normal appearance, no scleral icterus. Neck: full ROM Respiratory: 4 L/min nasal cannula, no respiratory distress. Cardiovascular: normal rate and rhythm, S1, S2. GI/Abdominal: Laparotomy incision, colostomy with scant bloody fluid in bag. Extremities: full range of motion, nontender. Neurological: CN II-XII intact, intact motor, intact sensation. Psychiatric: Impaired cognition. Skin: warm, normal color Constitutional Vitals: Vital Signs Temp Pulse Resp BP Pulse Ox O2 Del Method O2 Flow Rate 97.4 F 85 18 128/89 93 3 08/04/22 12:01 08/04/22 12:01 08/04/22 12:01 08/04/22 12:01 08/04/22 12:01 08/04/22 12:01 08/04/22 12:01 Period Temp Pulse Resp BP Sys/Lovell Pulse Ox O2 Del Method O2 Flow Rate Last 24 Hr 96.7 F-97.6 F 62-115 0-36 75-141/38-97 83-99 Nasal Cannula-R oom Air 0-6 Intake and Output 08/03/22 08/04/22 08/04/22 21:59 05:59 13:59 Intake Total 280 5291 1100 Output Total 1087 375 Balance 280 4204 725 Weight 66.088 kg Intake & Output: Intake & Output 08/03/22 08/04/22 08/04/22 21:59 05:59 13:59 Intake Total 280 5291 1100 Output Total 1087 375 Balance 280 4204 725 Weight 66.088 kg Intake: IV 280 1141 1100 Sodium Chloride 0.9% 250 ml @ 0 0 Wide Open IV [facility] Rx#: [id number] Dextrose 5%-Lactated Ringers 1, 1000 000 ml @ 100 mls/hr IV .Q10H [facility] Rx#:[id number] Kcentra 1 Unit 2,178 Unit In 80 Emptybag 80 ml @ 415 mls/hr IV ONCE ONE Rx#:[id number] Lactated Ringers 1,000 ml @ 100 791 mls/hr IV .Q10H [facility] Rx#: [id number] Zosyn 3.375 gm In Dextrose 5% 50 100 in Water 50 ml @ 100 mls/hr IV Q6H [facility] Rx#:[id number] Zosyn 4.5 gm In Dextrose 5% in 50 Water 50 ml @ 100 mls/hr IV ONCE ONE Rx#:[id number] Oral 0 0 Tube Feeding 0 IV - Manual Only 4150 Output: Gastric Drainage 50 Right Nare NG/OG 50 Drainage 190 Left Lower Abdomen TENA Drain 190 Drainage 70 Left Lower Abdomen TENA Drain 70 Urine Catheter Amount 647 290 Stool 15 Estimated Blood Loss 200 Other: Urine Appearance Clear Clear Uretheral (Michaels) Clear Cloudy Urine Color Dark Yellow Dark Yellow Uretheral (Michaels) Dark Yellow Dark Yellow Urine Odor Normal OBJ DATA Labs CBC & Chem 7: 08/05/22 05:30 08/05/22 05:29 Labs: Abnormal Lab Results 08/04/22 08/04/22 08/03/22 05:14 05:13 23:57 WBC 16.2 H RBC 4.09 L Hgb 12.6 L Hct MCV 100.2 H MCHC 30.7 L Neut % (Auto) 94.1 H Lymph % (Auto) 1.4 L Lymph # (Auto) 0.23 L Immature Gran # 0.08 H Absolute Neutrophils 15.20 H Carbon Dioxide 17 L 15 L Anion Gap 18.0 H 18.0 H Glucose 240 H 148 H Calcium 8.3 L 8.3 L Magnesium 1.4 L Total Bilirubin 1.1 H Direct Bilirubin 0.5 H 0.7 H Total Protein 5.6 L 5.5 L Albumin 3.1 L 3.0 L 08/03/22 08/03/22 08/03/22 23:57 17:35 17:35 WBC 14.9 H RBC 3.97 L 4.50 L Hgb 12.1 L Hct 39.7 L MCV MCHC 30.5 L Neut % (Auto) 93.6 H 86.6 H Lymph % (Auto) 2.0 L 6.8 L Lymph # (Auto) 0.29 L 0.71 L Immature Gran # Absolute Neutrophils 13.92 H 9.06 H Carbon Dioxide Anion Gap Glucose 127 H Calcium Magnesium Total Bilirubin Direct Bilirubin Total Protein Albumin Meds: Medications Acetaminophen (Acetaminophen 325 Mg Tablet) 650 mg PO Q6HP PRN; Protocol PRN Reason: Per Pain Protocol/Fever > 101 Albuterol/Ipratropium (Ipratropium/Albuterol 3 Ml Ampul.Neb) 3 ml NEB Q4HP PRN PRN Reason: Shortness Of Breath Atorvastatin Calcium (Atorvastatin 20 Mg Tablet) 20 mg PO QDAY [facility] Last Admin: 08/04/22 11:00 Dose: 20 mg Hydromorphone HCl (Hydromorphone 0.5 Mg/0.5 Ml Syringe) 0.5 - 1 mg IV Q1HP PRN; Protocol PRN Reason: Per Pain Protocol Hydromorphone HCl (Hydromorphone 0.5 Mg/0.5 Ml Syringe) 0 mg IV Q2HP PRN PRN Reason: Pain Last Admin: 08/04/22 03:03 Dose: 0.5 mg Dextrose/Lactated Ringer's (Dextrose 5%-Lactated Ringers) 1,000 mls @ 100 mls/hr IV .Q10H [facility] Last Admin: 08/04/22 09:28 Dose: 100 mls/hr Piperacillin Sod/Tazobactam (Sod 3.375 gm/ Dextrose) 50 mls @ 100 mls/hr IV Q6H [facility]; Protocol Last Infusion: 08/04/22 12:40 Dose: Infused Potassium Chloride 40 meq/ (Dextrose) 520 mls @ 130 mls/hr IV UD PRN PRN Reason: Potassium < 3 Magnesium Sulfate (Magnesium Sulfate) 2 gm in 50 mls @ 50 mls/hr IV UD PRN PRN Reason: Magnesium </= 1.6 Last Infusion: 08/04/22 05:00 Dose: Infused Acetaminophen (Ofirmev) 650 mg in 65 mls @ 130 mls/hr IV Q6HP PRN; Protocol PRN Reason: PAIN/FEVER > 101 Metoprolol Tartrate (Metoprolol Tartrate 5 Mg/5 Ml Vial) 5 mg IV Q2HP PRN PRN Reason: Tachyarrhythmias HR>110 Metoprolol Tartrate (Metoprolol Tartrate 5 Mg/5 Ml Vial) 5 mg IV Q6H [facility] Last Admin: 08/04/22 12:15 Dose: 5 mg Morphine Sulfate (Morphine 4 Mg/Ml Vial) 0 mg IV Q3HP PRN PRN Reason: Pain Ondansetron HCl (Ondansetron 4 Mg/2 Ml Vial) 4 mg IV Q6HP PRN PRN Reason: Nausea And Vomiting Ondansetron HCl (Ondansetron 4 Mg/2 Ml Vial) 4 mg IV Q4HP PRN PRN Reason: Nausea And Vomiting Pantoprazole Sodium (Pantoprazole 40 Mg Vial) 40 mg IV QAMAC [facility] Last Admin: 08/04/22 07:29 Dose: 40 mg Polyethylene Glycol (Polyethylene Glycol 3350 17 Gm Packet) 17 gm PO DAILYP PRN PRN Reason: Constipation Potassium Chloride (Potassium Chloride 20 Meq Tablet) 40 meq PO UD PRN PRN Reason: Potssium is 3-3.5 Potassium Chloride (Potassium Chloride 20 Meq Tablet) 40 meq PO UD PRN PRN Reason: Potassium < 3 Sodium Chloride (0.9 % Sodium Chloride 10 Ml Syringe) 10 ml IV Q8 [facility] Last Admin: 08/04/22 12:08 Dose: 10 ml Sodium Chloride (0.9 % Sodium Chloride 10 Ml Syringe) 10 ml IV Q8 [facility] Last Admin: 08/04/22 05:34 Dose: 10 ml Tamsulosin HCl (Tamsulosin 0.4 Mg Capsule) 0.4 mg PO QDAY [facility] Last Admin: 08/04/22 10:59 Dose: 0.4 mg A/P Narrative A/P Narrative: Assessment: 86-year-old male with a history of atrial fibrillation, 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 The patient underwent an exploratory laparotomy and end colostomy on 08/03/2022. 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) *Probable delirium *h/o Afib w/PPM: on eliquis/BB *BPH: *COPD (O2@night): *Chronic diarrhea: The reason he underwent colonoscopy P: -Postoperative surgical care/diet/analgesics/antibiotic per surgery -Monitor and replace electrolytes -monitor for bleeding -IV lopressor while npo -Delirium bundle -pt/ot -ppx: apixaban post-op when ok with surgery, scd for now / ppi Time Spent With Patient Time: Total time spent is greater than 50% in coordination of care (as documented) at patient's floor/unit and/or counseling patient: QUALITY VTE Deep Vein Thrombosis/Pulmonary Embolism Present on Admission: No
[2022-08-04] MEDS: ACETAMINOPHEN 650 MG/65 ML BAG IV PRN ×2 (14:06→20:51)
[2022-08-05] MEDS: PIPERACILLIN SODIUM/TAZOBACTAM 3.375 GM in DEXTROSE 5% IN WATER 50 ML IV SCH ×4 (00:06→17:57)
[2022-08-05] MEDS: METOPROLOL TARTRATE 5 MG/5 ML VIAL IV SCH ×4 (00:06→17:57)
[2022-08-05] MEDS: ACETAMINOPHEN 650 MG/65 ML BAG IV PRN ×3 (03:34→21:59)
[2022-08-05] MEDS: 0.9 % SODIUM CHLORIDE 10 ML SYRINGE IV SCH ×5 (05:56→22:29)
[2022-08-05] MEDS: PANTOPRAZOLE 40 MG VIAL IV SCH (07:06)
[2022-08-05] MEDS: DEXTROSE 5%-LR 1,000 ML IV SCH ×2 (07:06→21:11)
[2022-08-05 07:09] LABS: Basophils # (Auto) 0.01 K/mcL (0.00-0.30); Basophils % (Auto) 0.1 % (0.0-2.0); Eosinophils # (Auto) 0 K/mcL (0.00-0.70); Eosinophils % (Auto) 0 % (0.0-7.0); Hematocrit 36.6 % (40.1-51.0); Hemoglobin 11.5 g/dL (13.7-17.5); Lymphocytes # (Auto) 0.73 K/mcL (1.50-4.80); Lymphocytes % (Auto) 4.3 % (15.5-49.0); Mean Cell Volume 98.4 fL (80.0-100.0); Mean Corpuscular HGB Conc 31.4 g/dL (31.0-36.0); Mean Platelet Volume 10.3 fL (8.8-12.5); Monocytes # (Auto) 0.81 K/mcL (0.10-0.90); Monocytes % (Auto) 4.8 % (1.0-12.0); Neutrophils % (Auto) 90.1 % (38.0-78.0); Platelet Count 176 K/mcL (140-440); RBC 3.72 M/mcL (4.63-6.08); Red Cell Distribution Width 14.2 % (11.5-14.5); WBC 16.8 K/mcL (4.5-11.0)
[2022-08-05 07:48] LABS: ALT/SGPT 11 U/L (<40); AST/SGOT 25 U/L (<40); Albumin 3.1 gm/dL (3.2-5.2); Albumin/Globulin Ratio 1.2 (1.0-2.3); Alkaline Phosphatase 67 U/L (39-117); Bilirubin,Direct < 0.2 mg/dL (0-0.3); Bilirubin,Total 0.5 mg/dL (0.1-1.0); Blood Urea Nitrogen 11 mg/dL (8-23); Calcium 8.7 mg/dL (8.6-10.4); Carbon Dioxide 22 mmol/L (22-30); Chloride 103 mmol/L (96-108); Globulin 2.6 gm/dL (2.2-3.7); Glomerular Filtration Rate 68; Glucose 127 mg/dL (70-105); Lactate Dehydrogenase 264 U/L (135-225); Phosphorous 2.4 mg/dL (2.5-4.5); Triglycerides 46 mg/dL (<150); Uric Acid 2.5 mg/dL (2.5-8.0)
--- NOTE | 2022-08-05 08:42 | EKG ---
[facility] Test Date: 2022-08-03 Pat Name: Fei Rodrigues Department: ICU Room: 120C Gender: Male [employer] Services Librarian: : [id number] Requested By: Ranjeet Saravia Order Number: [id number] Reading MD: Rafael Berry D.O. Measurements Intervals [place] Rate: 74 P: 0 TX: 74 QRS: 10 QRSD: 93 T: QT: 398 QTc: 442 Interpretive Statements Ventricular-paced complexes with [place] ventricural conducted beats as well Probably underlying atrial fibrillation Electronically Signed On 08-05-2022 8:42:34 PDT by Rafael Berry D.O. [id number]
--- NOTE | 2022-08-05 10:33 | General Surgery Progress Note ---
SUBJECTIVE Subjective Patient information: Note initiated : 08/05/22 at 10:29 am Service Date, if different from initiated Date: [] Patient: Fei Rodrigues 86 y/o M admitted on 08/03/22 for Colonoscopy. Chief Complaint: [] Pain control ok, minimal ostomy output, NGT functional Constitutional Vitals: Vital Signs Temp Pulse Resp BP Pulse Ox O2 Del Method O2 Flow Rate 97.5 F 76 20 139/99 98 3 08/05/22 08:01 08/05/22 08:01 08/05/22 10:03 08/05/22 10:03 08/05/22 08:01 08/05/22 10:03 08/05/22 10:03 Period Temp Pulse Resp BP Sys/Lovell Pulse Ox O2 Del Method O2 Flow Rate Last 24 Hr 97.4 F-98.3 F 72-102 14-23 115-139/71-99 89-98 Nasal Cannula- Nasal Cannula 3-3 Intake and Output 08/04/22 08/05/22 08/05/22 21:59 05:59 13:59 Intake Total 3949 573 0525 Output Total 175 1330 50 Balance 1005 -1065 1000 Weight 147 lb Intake & Output: Intake & Output 08/04/22 08/05/22 08/05/22 21:59 05:59 13:59 Intake Total 2209 207 5079 Output Total 175 1330 50 Balance 1005 -1065 1000 Weight 147 lb Intake: IV 7589 168 4967 Dextrose 5%-Lactated Ringers 1, 1000 1000 000 ml @ 100 mls/hr IV .Q10H [facility] Rx#:[id number] Zosyn 3.375 gm In Dextrose 5% 50 50 50 in Water 50 ml @ 100 mls/hr IV Q6H [facility] Rx#:[id number] Oral 150 Tube Feeding 0 Output: Gastric Drainage 350 Right Nare NG/OG 350 Drainage 50 Left Lower Abdomen TENA Drain 50 Drainage 50 80 Left Lower Abdomen TENA Drain 50 80 Urine Catheter Amount 125 900 Other: Urine Appearance Clear Clear Uretheral (Michaels) Clear Urine Color Dark Natalya Dark Yellow Uretheral (Michaels) Dark Yellow Urine Odor Normal Exam: Conversant, fully alert GI/Abdominal Additional comments: soft and non distended, non dressing in place, ostomy looks ok but with minimal output, JPD decreasing serous drainage A/P Assessment and plan (1) Colon perforation: Assessment and plan: POD #2 Ex Lap, Resection of Sigmoid Perforation, End Colostomy with washout and drainage Awaiting bowel function Continue NGT for now Increase activity as able Would continue to hold Eliquis - Lovenox ok if necessary Status: Acute Time Spent With Patient Time: Total time spent is greater than 50% in coordination of care (as documented) at patient's floor/unit and/or counseling patient:
[2022-08-05] MEDS: ATORVASTATIN 20 MG TABLET PO SCH (11:34)
[2022-08-05] MEDS: TAMSULOSIN 0.4 MG CAPSULE PO SCH (11:34)
--- NOTE | 2022-08-05 12:00 | Operative Note ---
DATE OF OPERATION: 08/03/2022 PREOPERATIVE DIAGNOSIS: Colonic perforation. POSTOPERATIVE DIAGNOSIS: Colonic perforation. OPERATIVE PROCEDURE: 1. Exploratory laparotomy with resection of sigmoid perforation. 2. End colostomy. 3. Washout and drainage. SURGEON: Isma Mcfarland M.D. ANESTHESIA: General. PREOPERATIVE MEDICATIONS: Zosyn 3.375 grams IV, Cipro 400 mg IV, and Flagyl 500 mg IV. INDICATIONS FOR PROCEDURE: The patient is an 86-year-old, home O2-dependent male who was undergoing an elective colonoscopy with diagnostic intent for a refractory or chronic or persistent diarrhea. He was felt during the procedure to have experienced a perforation in the sigmoid colon that was verified endoscopically, and we were asked to see him in consultation. We examined him in the post-procedural area, and he was found to have a distended abdomen with board-like rigidity and met findings for an acute abdomen with peritonitis. Of significant note, he had been on Eliquis that had been continued and was essentially anticoagulated at the time of this discovery. We had a lengthy discussion with he and his family members regarding risks of bleeding, potential options for transfer to somewhere where they might have more appropriate reversal agents available. After discussions and multidisciplinary consultations with Pharmacy and the consulting medicine service, a decision was made to proceed with utilization of Kcentra, which we did have available here at the hospital. I discussed with both he and his son risks, benefits, potential complications, and alternative treatment options and potential outcomes, particularly given his underlying medical comorbidities, the potential for on-table demise or post-procedural demise from a multitude of etiologies. They understood this, but also understood that he needed emergent operative intervention given the overall clinical presentation and findings. He gave full informed consent. PROCEDURE IN DETAIL: The patient was taken to the OR and placed supine on the OR table, placed under general anesthesia and intubated. A Michaels catheter was placed. Bilateral SCDs were applied. His arms were placed out on arm boards under the direction of anesthesia services. After he was positioned comfortably on the OR table by the entire team as best we could, his abdomen was then widely prepped and draped in a sterile fashion. Procedure began with a vertical midline incision extending from the mid epigastric region down past the umbilicus. We dissected down through the underlying fatty tissue to the midline abdominal wall fascia, which was opened in the vertical midline using cautery. The underlying peritoneum was identified, grasped, and opened sharply to enter the peritoneal space. A gush of air was identified upon entry, consistent with pneumoperitoneum, and we extended the peritoneal incision along the full length of the incision and then brought a self-retaining retractor into the field. The bowel was extremely distended from the prior procedure. He had extensive amounts of air throughout the colon and small bowel with tremendous distention everywhere. NG tube placement was not accomplished during the procedure given difficulties passing the NG tube from above. Ultimately, we were able to retract the small bowel to the right and up and out of the way and expose the sigmoid colon in the left lower abdomen. A transection was identified at the distal sigmoid colon just above the rectosigmoid junction. This was a complete transection. The proximal and distal colonic ends were by a significant distance with soilage in the area. The area was irrigated out. We then quickly mobilized up and transected the sigmoid colon just above the point of segmental disruption to control enteric flow from above, and then we grasped the proximal and distal perforated ends and brought them together and then utilized sequential firings of the endovascular 35 mm GRISELDA stapler to divide distally past the point of perforation just above the rectosigmoid junction. Thus, the perforated section of sigmoid colon was removed and sent to Pathology. We then irrigated the area out extensively and then visualized the area. The staple lines were bleeding significantly distally. This was oversewn with interrupted 3-0 Vicryl sutures where appropriate. There did appear to be some persistent ongoing anticoagulative effect. Anesthesia gave additional doses above of tranexamic acid to help control bleeding and we continued. The proximal colonic limb was then mobilized up to a permanent end colostomy and the mesentery was taken down in appropriate junctures to liberate this utilizing the Impact LigaSure device. The ureter was identified on the left pericolic gutter and swept down and away to make sure that there was no evidence of injury or harm to it. None was seen and we were able to mobilize sufficient colonic length to reach the overlying abdominal wall. At this point, we irrigated out again, made sure there was no active bleeding or hemorrhage identified and any areas of concern were further controlled with interrupted 3-0 Vicryl sutures. Gradually, the area become fully hemostatic. We brought a 19-South African round Khoa drain in through a separate stab low incision in the lower left abdominal wall and positioned it in the pelvis in and around the area of perforation. It was secured in place with a 3-0 silk stitch and cut to appropriate length. Next, we made preparations to create the opening for our end colostomy. A likely area was chosen roughly at the level of the umbilicus, but well lateral to it. We removed a roughly 3 x 3 cm section of skin and underlying adipose tissue in a circular manner down to the level of the anterior abdominal wall fascia, which was then opened in a cruciate manner. The underlying muscle was then and retracted to one side or the other and then the posterior fascia was opened in a likewise cruciate manner. This was dilated up until it easily permitted passage of the proximal colonic limb without difficulty, which came to rest on the overlying abdominal wall very nicely without difficulty with roughly 5 cm of overlap. We then irrigated out a final time, checked for hemostasis a final time and made preparations for closure. Sponge, needle, and instrument counts were checked multiple times and found to be correct. The fascia was then closed from above and below with a running looped 0 PDS and tied in the midline. Great care was taken to avoid underlying injury to the very distended bowel and a FISH retractor was used for the vast majority of the closure and then we used additional handheld malleable devices to keep the bowel down and away as we closed the fascia over the distended bowel that was immediately adjacent to the underside of the fascia. Once this was complete, I then elected to go ahead and close the skin after extensively irrigating out the area and given the fact that the contamination in the abdomen was localized fairly nicely down to the area of perforation and was not diffuse and given the fact that he did not have generalized contamination, I felt that we could go ahead and irrigate this out and make an attempt at closure, despite the higher risk of wound infection. The incision was closed with rosie after adequate irrigation and a sterile dressing was applied. Next, we went ahead and made preparations to mature our ostomy. Given the way the colon came to rest on the abdominal wall, I elected to oversew the staple line with lemberted 3-0 silk sutures and then duck this underneath the skin in the subdermal space and then opened up a longitudinal antimesenteric opening on the colon to create our side functional end colostomy. This was performed with interrupted 3-0 silk sutures at the four quadrants and then interrupted 3-0 Vicryl sutures were utilized circumferentially all the way around. Given his very thin habitus, it was difficult to reduce everything into the subdermal space, but ultimately we were able to accomplish this and, again, the bowel rested on the abdominal wall nicely without tension and without any evidence of ischemic compromise. Prior to completing the ostomy maturation, I probed the stoma with a gloved lubricated finger. It was widely patent at the fascial opening without difficulty. Given the scattered and fairly extensive areas of diverticular disease throughout his entire left colon, I elected to not place any sutures at the fascial level for fear of a diverticular perforation. Stomal device was applied. The patient was awakened, extubated, and transferred to PACU in satisfactory condition. ESTIMATED BLOOD LOSS: Roughly 100 to 150 mL. DRAINS: A single 19-South African round Khoa situated in the left lower abdomen and upper pelvis. COMPLICATIONS: None apparent. FINDINGS: As discussed above. BW:zachery Job ID: [id number] Doc ID: [id number] Isma Mcfarland M.D. MTDDav
[2022-08-05] MEDS ORDERED: MELATONIN 3 MG TABLET PO SCH (13:00)
--- NOTE | 2022-08-05 17:54 | XRay Report ---
INDICATION: NG tube placement TECHNIQUE: Supine abdomen. COMPARISON: CT scan dated 03/10/2017 FINDINGS:Esophagogastric tube with its tip in the left upper quadrant consistent with stomach. Large amount of bowel gas. Patient is apparently status post colonoscopy There is an abdominal aortic stent graft. There are bilateral, bibasilar pulmonary parenchymal infiltrates. Findings may be due to pulmonary fibrosis but pneumonia is possible. IMPRESSION: Esophagogastric tube in the left upper quadrant consistent with stomach Interpreted and Authenticated by: Sai Celeste 08/05/22
[2022-08-05] MEDS: IPRATROPIUM/ALBUTEROL 3 ML AMPUL.NEB NEB PRN (21:02)
[2022-08-06] MEDS: PIPERACILLIN SODIUM/TAZOBACTAM 3.375 GM in DEXTROSE 5% IN WATER 50 ML IV SCH ×4 (00:11→17:16)
[2022-08-06] MEDS: METOPROLOL TARTRATE 5 MG/5 ML VIAL IV SCH ×3 (00:31→12:36)
[2022-08-06] MEDS: 0.9 % SODIUM CHLORIDE 10 ML SYRINGE IV SCH ×5 (00:33→20:54)
[2022-08-06] MEDS: DEXTROSE 5%-LR 1,000 ML IV SCH ×3 (05:28→20:54)
[2022-08-06] MEDS ORDERED: ACETAMINOPHEN 650 MG/65 ML BAG IV PRN (07:12)
[2022-08-06 08:15] LABS: Basophils # (Auto) 0.01 K/mcL (0.00-0.30); Basophils % (Auto) 0.1 % (0.0-2.0); Eosinophils # (Auto) 0.02 K/mcL (0.00-0.70); Eosinophils % (Auto) 0.1 % (0.0-7.0); Hematocrit 36.7 % (40.1-51.0); Hemoglobin 12.1 g/dL (13.7-17.5); Lymphocytes # (Auto) 0.63 K/mcL (1.50-4.80); Lymphocytes % (Auto) 4.4 % (15.5-49.0); Mean Cell Volume 93.9 fL (80.0-100.0); Mean Platelet Volume 10.6 fL (8.8-12.5); Monocytes # (Auto) 0.82 K/mcL (0.10-0.90); Monocytes % (Auto) 5.7 % (1.0-12.0); Platelet Count 190 K/mcL (140-440); RBC 3.91 M/mcL (4.63-6.08); Red Cell Distribution Width 14.1 % (11.5-14.5); WBC 14.4 K/mcL (4.5-11.0)
[2022-08-06 08:39] LABS: ALT/SGPT 13 U/L (<40); AST/SGOT 19 U/L (<40); Albumin 3.1 gm/dL (3.2-5.2); Albumin/Globulin Ratio 1.1 (1.0-2.3); Alkaline Phosphatase 72 U/L (39-117); Bilirubin,Direct 0.3 mg/dL (<0.3); Bilirubin,Total 0.7 mg/dL (0.1-1.0); Blood Urea Nitrogen 9 mg/dL (8-23); Calcium 8.5 mg/dL (8.6-10.4); Carbon Dioxide 23 mmol/L (22-30); Chloride 101 mmol/L (96-108); Globulin 2.7 gm/dL (2.2-3.7); Glomerular Filtration Rate 85; Glucose 129 mg/dL (70-105); Lactate Dehydrogenase 188 U/L (135-225); Phosphorous 2.2 mg/dL (2.5-4.5); Triglycerides 69 mg/dL (<150); Uric Acid 1.9 mg/dL (2.5-8.0)
[2022-08-06] MEDS: TAMSULOSIN 0.4 MG CAPSULE PO SCH (09:01)
[2022-08-06] MEDS: ATORVASTATIN 20 MG TABLET PO SCH (09:01)
[2022-08-06] MEDS: PANTOPRAZOLE 40 MG VIAL IV SCH (09:02)
[2022-08-06] MEDS: IPRATROPIUM/ALBUTEROL 3 ML AMPUL.NEB NEB PRN (09:22)
[2022-08-06] MEDS: METOPROLOL TARTRATE 5 MG/5 ML VIAL IV PRN ×2 (10:26→17:16)
--- NOTE | 2022-08-06 10:42 | XRay Report ---
INDICATION: Shortness of breath TECHNIQUE: AP portable chest x-ray COMPARISON: Previous chest x-rays dated 03/27/2019, 03/12/2019 FINDINGS:There is an esophagogastric tube in the stomach. Left-sided cardiac pacemaker Lungs:There are bilateral pulmonary parenchymal infiltrates with bibasilar predominance. Abnormality is new since previous examination. Appearance is consistent with pneumonia. Aspiration pneumonia is possible Heart, vascular:No significant cardiomegaly. Pulmonary vascularity is normal. No pulmonary edema or pulmonary congestion Mediastinum, gilbert:No mediastinal widening. No hilar mass Pleura:Probable small bilateral pleural effusions Skeletal:Negative. IMPRESSION: 1. Bilateral, predominantly bibasilar infiltrates are new since 2019 2. Findings are consistent with pneumonia 3. Probable small bilateral pleural effusions Interpreted and Authenticated by: Sai Celeste 08/06/22
--- NOTE | 2022-08-06 12:12 | XRay Report ---
INDICATION: eval NGT and bowel gas pattern POD #3 TECHNIQUE: Supine abdomen. COMPARISON: Previous examination dated 08/05/2022 FINDINGS:Esophagogastric tube tip in the left upper quadrant, probably in stomach. This is unchanged. There are skin rosie in the upper abdomen. There is an aortic stent graft visualized. Mildly prominent bowel gas in the upper abdomen appears to be small bowel. There is no pneumoperitoneum. No biliary or portal venous gas. Appearance is unchanged since 08/05/2022. There is no definite colonic gas identified but the entire abdomen is not imaged Bilateral, bibasilar pulmonary parenchymal infiltrates consistent with pneumonia IMPRESSION: 1. Esophagogastric tube in the left upper quadrant, probably in stomach 2. Prominent gas-filled small bowel in the upper abdomen, unchanged Interpreted and Authenticated by: Sai Celeste 08/06/22
[2022-08-06] MEDS ORDERED: METOPROLOL SUCCINATE 50 MG TAB.XL.24H PO SCH (13:00)
[2022-08-06] MEDS: ENOXAPARIN 40 MG/0.4 ML SYRINGE SQ SCH (13:47)
[2022-08-06] MEDS ORDERED: FUROSEMIDE 40 MG/4 ML VIAL IV SCH (14:50)
--- NOTE | 2022-08-06 16:13 | Internal Med Progress Note ---
SUBJECTIVE Subjective Patient information: Note initiated : 08/06/22 at 4:07 pm Service Date, if different from initiated Date: [] Patient: Fei Rodrigues 86 y/o M admitted on 08/03/22 for Colonoscopy. Chief Complaint: [] Interval history: Chief Complaint: [] HPI: Patient presented for elective colonoscopy due to recurrent diarrhea. The procedure was complicated by perforation. Dr. Mcfarland surgeon was contacted. Patient is on Eliquis, last taken yesterday morning. Kcentra ordered. Patient will need urgent ex lap. Patient denies any chest pain or shortness of breath. Does have abdominal pain. No fevers or chills. 08/04 Patient seems to feel little bit better today. Does have a headache and some chronic shortness of breath but no other complaints. Vital signs stable. Good urine output. 08/05 No significant events overnight, 2 L/min nasal oxygen supplementation cannula today. Vitals otherwise stable. Patient is confused, likely has postoperative delirium. Started melatonin at bedtime. Continues on antibiotics per surgery. 08/06 Patient continues on 2 L/min nasal cannula, obtained portable chest x-ray that showed bilateral predominantly basilar infiltrates, bilateral small pleural effusions. WBC downtrending. Procalcitonin as well as proBNP markedly elevated. Patient continues on Zosyn. Lasix 40 mg IV once today and tomorrow morning, monitor respiratory status for improvement with diuresis. Started Lovenox SQ for DVT prophylaxis, okay with general surgery. Resumed home Toprol 50 mg daily, discontinued Lopressor 5 units every 6 hours. Patient continues to have waxing and waning mental status consistent with delirium. Physical exam Head: Atraumatic, normal inspection. Eyes: normal appearance, no scleral icterus. Neck: full ROM Respiratory: 4 L/min nasal cannula, no respiratory distress. Cardiovascular: normal rate and rhythm, S1, S2. GI/Abdominal: Nasogastric tube, laparotomy incision, colostomy with scant bloody fluid in bag. Extremities: full range of motion, nontender. Neurological: CN II-XII intact, intact motor, intact sensation. Psychiatric: Impaired cognition. Skin: warm, normal color Constitutional Vitals: Vital Signs Temp Pulse Resp BP Pulse Ox O2 Del Method O2 Flow Rate 98.3 F 92 H 19 118/84 91 1 08/06/22 12:01 08/06/22 14:01 08/06/22 14:01 08/06/22 14:01 08/06/22 14:01 08/06/22 12:01 08/06/22 12:01 Period Temp Pulse Resp BP Sys/Lovell Pulse Ox O2 Del Method O2 Flow Rate Last 24 Hr 97.1 F-99.1 F 88-130 16-25 118-137/80-100 90-94 Nasal Cannula- Nasal Cannula 1-2 Intake and Output 08/06/22 08/06/22 08/06/22 05:59 13:59 21:59 Intake Total 115 1595 120 Output Total 449 205 Balance -334 1390 120 Intake & Output: Intake & Output 08/06/22 08/06/22 08/06/22 05:59 13:59 21:59 Intake Total 115 1595 120 Output Total 449 205 Balance -334 1390 120 Intake: IV 115 1475 Dextrose 5%-Lactated Ringers 1, 1375 000 ml @ 100 mls/hr IV .Q10H [facility] Rx#:[id number] Zosyn 3.375 gm In Dextrose 5% 50 100 in Water 50 ml @ 100 mls/hr IV Q6H [facility] Rx#:[id number] Oral 120 120 Tube Feeding 0 Output: Gastric Drainage 150 Right Nare NG/OG 150 Drainage 80 Left Lower Abdomen TENA Drain 80 Urine Catheter Amount 219 205 Other: Urine Appearance Clear Urine Color Light Natalya Dark Natalya Uretheral (Michaels) Dark Yellow Urine Odor Normal OBJ DATA Labs CBC & Chem 7: 08/06/22 07:30 08/06/22 07:30 Labs: Abnormal Lab Results 08/06/22 08/06/22 08/06/22 12:34 12:34 07:30 WBC RBC Hgb Hct MCV MCHC Immature Gran % (Auto) Neut % (Auto) Lymph % (Auto) Lymph # (Auto) Immature Gran # Absolute Neutrophils Carbon Dioxide Anion Gap Glucose 129 H Uric Acid 1.9 L Calcium 8.5 L Phosphorus 2.2 L Magnesium Total Bilirubin Direct Bilirubin 0.3 H Lactate Dehydrogenase NT-Pro-B Natriuret Pep 39978.0 H Total Protein 5.8 L Albumin 3.1 L Procalcitonin 1.78 H 08/06/22 08/05/22 08/05/22 07:30 05:30 05:29 WBC 14.4 H 16.8 H RBC 3.91 L 3.72 L Hgb 12.1 L 11.5 L Hct 36.7 L 36.6 L MCV MCHC Immature Gran % (Auto) 0.7 H 0.7 H Neut % (Auto) 89.0 H 90.1 H Lymph % (Auto) 4.4 L 4.3 L Lymph # (Auto) 0.63 L 0.73 L Immature Gran # 0.10 H 0.11 H Absolute Neutrophils 12.78 H 15.14 H Carbon Dioxide Anion Gap Glucose 127 H Uric Acid Calcium Phosphorus 2.4 L Magnesium Total Bilirubin Direct Bilirubin Lactate Dehydrogenase 264 H NT-Pro-B Natriuret Pep Total Protein 5.7 L Albumin 3.1 L Procalcitonin 08/04/22 08/04/22 08/03/22 05:14 05:13 23:57 WBC 16.2 H RBC 4.09 L Hgb 12.6 L Hct MCV 100.2 H MCHC 30.7 L Immature Gran % (Auto) Neut % (Auto) 94.1 H Lymph % (Auto) 1.4 L Lymph # (Auto) 0.23 L Immature Gran # 0.08 H Absolute Neutrophils 15.20 H Carbon Dioxide 17 L 15 L Anion Gap 18.0 H 18.0 H Glucose 240 H 148 H Uric Acid Calcium 8.3 L 8.3 L Phosphorus Magnesium 1.4 L Total Bilirubin 1.1 H Direct Bilirubin 0.5 H 0.7 H Lactate Dehydrogenase NT-Pro-B Natriuret Pep Total Protein 5.6 L 5.5 L Albumin 3.1 L 3.0 L Procalcitonin 08/03/22 08/03/22 08/03/22 23:57 17:35 17:35 WBC 14.9 H RBC 3.97 L 4.50 L Hgb 12.1 L Hct 39.7 L MCV MCHC 30.5 L Immature Gran % (Auto) Neut % (Auto) 93.6 H 86.6 H Lymph % (Auto) 2.0 L 6.8 L Lymph # (Auto) 0.29 L 0.71 L Immature Gran # Absolute Neutrophils 13.92 H 9.06 H Carbon Dioxide Anion Gap Glucose 127 H Uric Acid Calcium Phosphorus Magnesium Total Bilirubin Direct Bilirubin Lactate Dehydrogenase NT-Pro-B Natriuret Pep Total Protein Albumin Procalcitonin Meds: Medications Albuterol/Ipratropium (Ipratropium/Albuterol 3 Ml Ampul.Neb) 3 ml NEB Q4HP PRN PRN Reason: Shortness Of Breath Last Admin: 08/06/22 09:22 Dose: 3 ml Atorvastatin Calcium (Atorvastatin 20 Mg Tablet) 20 mg PO QDAY [facility] Last Admin: 08/06/22 09:01 Dose: 20 mg Enoxaparin Sodium (Enoxaparin 40 Mg/0.4 Ml Syringe) 40 mg SQ DAILY [facility] Last Admin: 08/06/22 13:47 Dose: 40 mg Furosemide (Furosemide 40 Mg/4 Ml Vial) 40 mg IV 0900 [facility] Stop: 08/07/22 11:00 Dextrose/Lactated Ringer's (Dextrose 5%-Lactated Ringers) 1,000 mls @ 100 mls/hr IV .Q10H [facility] Last Infusion: 08/06/22 13:45 Dose: 100 mls/hr Piperacillin Sod/Tazobactam (Sod 3.375 gm/ Dextrose) 50 mls @ 100 mls/hr IV Q6H [facility]; Protocol Last Infusion: 08/06/22 13:44 Dose: Infused Potassium Chloride 40 meq/ (Dextrose) 520 mls @ 130 mls/hr IV UD PRN PRN Reason: Potassium < 3 Magnesium Sulfate (Magnesium Sulfate) 2 gm in 50 mls @ 50 mls/hr IV UD PRN PRN Reason: Magnesium </= 1.6 Last Infusion: 08/04/22 05:00 Dose: Infused Acetaminophen (Ofirmev) 650 mg in 65 mls @ 130 mls/hr IV Q6HP PRN; Protocol PRN Reason: PAIN/FEVER > 101 Last Infusion: 08/05/22 22:30 Dose: Infused Melatonin (Melatonin 3 Mg Tablet) 3 mg PO HSP [facility] Metoprolol Succinate (Metoprolol Succinate 50 Mg Tab.Xl.24h) 50 mg PO 1300 [facility] Stop: 08/06/22 17:00 Last Admin: 08/06/22 13:47 Dose: 50 mg Metoprolol Succinate (Metoprolol Succinate 50 Mg Tab.Xl.24h) 50 mg PO DAILY [facility] Metoprolol Tartrate (Metoprolol Tartrate 5 Mg/5 Ml Vial) 5 mg IV Q2HP PRN PRN Reason: Tachyarrhythmias HR>110 Last Admin: 08/06/22 10:26 Dose: 5 mg Morphine Sulfate (Morphine 4 Mg/Ml Vial) 0 mg IV Q3HP PRN PRN Reason: Pain Last Admin: 08/05/22 00:27 Dose: 2 mg Ondansetron HCl (Ondansetron 4 Mg/2 Ml Vial) 4 mg IV Q4HP PRN PRN Reason: Nausea And Vomiting Pantoprazole Sodium (Pantoprazole 40 Mg Vial) 40 mg IV QAMAC [facility] Last Admin: 08/06/22 09:02 Dose: 40 mg Polyethylene Glycol (Polyethylene Glycol 3350 17 Gm Packet) 17 gm PO DAILYP PRN PRN Reason: Constipation Potassium Chloride (Potassium Chloride 20 Meq Tablet) 40 meq PO UD PRN PRN Reason: Potssium is 3-3.5 Potassium Chloride (Potassium Chloride 20 Meq Tablet) 40 meq PO UD PRN PRN Reason: Potassium < 3 Sodium Chloride (0.9 % Sodium Chloride 10 Ml Syringe) 10 ml IV Q8 [facility] Last Admin: 08/06/22 12:25 Dose: Not Given Tamsulosin HCl (Tamsulosin 0.4 Mg Capsule) 0.4 mg PO QDAY [facility] Last Admin: 08/06/22 09:01 Dose: 0.4 mg A/P Narrative A/P Narrative: Assessment: 86-year-old male with a history of atrial fibrillation, 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 The patient underwent an exploratory laparotomy and end colostomy on 08/03/2022. 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) *Hypoxia likely secondary to pneumonia (aspiration ?) and CHF *Probable delirium *h/o Afib w/PPM: on eliquis/BB *BPH: *COPD (O2@night): *Chronic diarrhea: The reason he underwent colonoscopy P: -Postoperative surgical care/diet/analgesics/antibiotic per surgery -Monitor and replace electrolytes -monitor for bleeding -Resume home Toprol 50 mg daily, continue Lopressor IV as needed for A. fib with RVR. -Lasix 40 mg IV today and tomorrow morning, follow respiratory status. -Delirium bundle -pt/ot -ppx: Lovenox SQ and SCDs for now / ppi Time Spent With Patient Time: Total time spent is greater than 50% in coordination of care (as documented) at patient's floor/unit and/or counseling patient: QUALITY VTE Deep Vein Thrombosis/Pulmonary Embolism Present on Admission: No
[2022-08-06] MEDS: ACETAMINOPHEN 650 MG/65 ML BAG IV PRN (16:20)
--- NOTE | 2022-08-06 17:18 | General Surgery Progress Note ---
SUBJECTIVE Subjective Patient information: Note initiated : 08/06/22 at 9:12 am Service Date, if different from initiated Date: [] Patient: Fei Rodrigues 86 y/o M admitted on 08/03/22 for Colonoscopy. Chief Complaint: [] Doing well this am, tolerating current pain regimen well, minimal ostomy output at this time Constitutional Vitals: Vital Signs Temp Pulse Resp BP Pulse Ox O2 Del Method O2 Flow Rate 99.2 F H 92 H 22 122/97 92 4 08/06/22 16:23 08/06/22 14:01 08/06/22 16:49 08/06/22 16:23 08/06/22 16:49 08/06/22 16:49 08/06/22 16:49 Period Temp Pulse Resp BP Sys/Lovell Pulse Ox O2 Del Method O2 Flow Rate Last 24 Hr 97.1 F-99.2 F 88-130 16-30 118-137/80-100 86-94 Nasal Cannula- Nasal Cannula 1-4 Intake and Output 08/06/22 08/06/22 08/06/22 05:59 13:59 21:59 Intake Total 115 1595 170 Output Total 374 321 4276 Balance -334 1390 -1275 Intake & Output: Intake & Output 08/06/22 08/06/22 08/06/22 05:59 13:59 21:59 Intake Total 115 1595 170 Output Total 468 254 0629 Balance -334 1390 -1275 Intake: IV 115 1475 Dextrose 5%-Lactated Ringers 1, 1375 000 ml @ 100 mls/hr IV .Q10H [facility] Rx#:[id number] Zosyn 3.375 gm In Dextrose 5% 50 100 in Water 50 ml @ 100 mls/hr IV Q6H [facility] Rx#:[id number] Oral 120 120 Tube Feeding 0 GI Tube Flush 50 Output: Gastric Drainage 150 150 Right Nare NG/OG 150 150 Drainage 80 Left Lower Abdomen TENA Drain 80 Drainage 80 Left Lower Abdomen TENA Drain 80 Urine Catheter Amount 383 900 6949 Other: Urine Appearance Clear Clear Urine Color Light Natalya Dark Natalya Pale Uretheral (Michaels) Dark Yellow Urine Odor Normal Normal Exam: Conversant, seems well oriented, NAD Respiratory Additional comments: non labored, on supplemental O2, normal effort Cardiovascular Cardiovascular exam: Present RRR GI/Abdominal Additional comments: soft and non distended, minimally tender, ostomy edematous but viable, scant drainage midline incision with dressing in place drain light serosang A/P Assessment and plan (1) Colon perforation: Assessment and plan: POD #3 Ex Lap with Resection of Sigmoid Perforation, End Colostomy with washout and drain placement Doing OK Transfer to floor ok from my standpoint Check Abdominal KUB sips and chips ok along with meds with NGT clamped Ok to start DVT prophylaxis from Surgical Standpoint - Lovenox or Heparin only for now Status: Acute Time Spent With Patient Time: Total time spent is greater than 50% in coordination of care (as documented) at patient's floor/unit and/or counseling patient:
[2022-08-07] MEDS: PIPERACILLIN SODIUM/TAZOBACTAM 3.375 GM in DEXTROSE 5% IN WATER 50 ML IV SCH ×5 (00:39→23:54)
[2022-08-07] MEDS: 0.9 % SODIUM CHLORIDE 10 ML SYRINGE IV SCH ×3 (05:14→20:16)
[2022-08-07 06:43] LABS: Basophils # (Auto) 0.01 K/mcL (0.00-0.30); Basophils % (Auto) 0.1 % (0.0-2.0); Eosinophils # (Auto) 0.05 K/mcL (0.00-0.70); Eosinophils % (Auto) 0.5 % (0.0-7.0); Hematocrit 36.4 % (40.1-51.0); Hemoglobin 11.8 g/dL (13.7-17.5); Lymphocytes # (Auto) 0.68 K/mcL (1.50-4.80); Lymphocytes % (Auto) 6.2 % (15.5-49.0); Mean Cell Volume 96.6 fL (80.0-100.0); Mean Corpuscular HGB Conc 32.4 g/dL (31.0-36.0); Mean Platelet Volume 10.3 fL (8.8-12.5); Monocytes # (Auto) 0.72 K/mcL (0.10-0.90); Monocytes % (Auto) 6.6 % (1.0-12.0); Neutrophils % (Auto) 86.1 % (38.0-78.0); Platelet Count 178 K/mcL (140-440); RBC 3.77 M/mcL (4.63-6.08); WBC 10.9 K/mcL (4.5-11.0)
[2022-08-07 07:12] LABS: ALT/SGPT 13 U/L (<40); AST/SGOT 13 U/L (<40); Albumin 2.7 gm/dL (3.2-5.2); Alkaline Phosphatase 66 U/L (39-117); Bilirubin,Direct 0.3 mg/dL (<0.3); Bilirubin,Total 0.9 mg/dL (0.1-1.0); Blood Urea Nitrogen 11 mg/dL (8-23); Calcium 8.5 mg/dL (8.6-10.4); Carbon Dioxide 24 mmol/L (22-30); Chloride 101 mmol/L (96-108); Globulin 2.8 gm/dL (2.2-3.7); Glomerular Filtration Rate 77; Glucose 130 mg/dL (70-105); Lactate Dehydrogenase 178 U/L (135-225); Triglycerides 73 mg/dL (<150); Uric Acid 2.1 mg/dL (2.5-8.0)
[2022-08-07] MEDS: PANTOPRAZOLE 40 MG VIAL IV SCH (07:59)
[2022-08-07] MEDS: DEXTROSE 5%-LR 1,000 ML IV SCH ×2 (07:59→17:14)
[2022-08-07] MEDS: ACETAMINOPHEN 650 MG/65 ML BAG IV PRN ×2 (08:00→16:20)
[2022-08-07] MEDS ORDERED: FUROSEMIDE 40 MG/4 ML VIAL IV SCH (09:00)
[2022-08-07] MEDS ORDERED: POTASSIUM PHOSPHATE 40 MEQ in DEXTROSE 5% IN WATER 500 ML IV ONE (09:00)
--- NOTE | 2022-08-07 10:08 | General Surgery Progress Note ---
SUBJECTIVE Subjective Patient information: Note initiated : 08/07/22 at 10:01 am Service Date, if different from initiated Date: [] Patient: Fei Rodrigues 86 y/o M admitted on 08/03/22 for Colonoscopy. Chief Complaint: [] OK overnight, increasing gas and some liquid stool at ostomy, pain control ok Constitutional Vitals: Vital Signs Temp Pulse Resp BP Pulse Ox O2 Del Method O2 Flow Rate 98.5 F 108 H 16 118/89 92 2 08/07/22 08:01 08/07/22 08:01 08/07/22 08:01 08/07/22 08:01 08/07/22 08:01 08/07/22 08:01 08/07/22 08:01 Period Temp Pulse Resp BP Sys/Lovell Pulse Ox O2 Del Method O2 Flow Rate Last 24 Hr 97.5 F-99.2 F 88-108 14-30 98-130/66-97 86-98 Nasal Cannula- Room Air 1-4 Intake and Output 08/06/22 08/07/22 08/07/22 21:59 05:59 13:59 Intake Total 334 73 5652 Output Total 1920 948 132 Balance -1010 -895 868 Weight 145 lb 14.4 oz Intake & Output: Intake & Output 08/06/22 08/07/22 08/07/22 21:59 05:59 13:59 Intake Total 044 50 4226 Output Total 1920 948 132 Balance -1010 -895 868 Weight 145 lb 14.4 oz Intake: IV 500 05 4482 Dextrose 5%-Lactated Ringers 1, 625 1000 000 ml @ 100 mls/hr IV .Q10H [facility] Rx#:[id number] Zosyn 3.375 gm In Dextrose 5% 50 53 in Water 50 ml @ 100 mls/hr IV Q6H [facility] Rx#:[id number] Oral 120 Tube Feeding 0 0 GI Tube Flush 50 Output: Gastric Drainage 150 100 Right Nare NG/OG 150 100 Drainage 80 Left Lower Abdomen TENA Drain 80 Drainage 225 Left Lower Abdomen TENA Drain 225 Urine Catheter Amount 7140 573 132 Void Amount 50 Other: Urine Appearance Clear Clear Clear Uretheral (Michaels) Clear Urine Color Yellow Yellow Dark Yellow Uretheral (Michaels) Pale Urine Odor Normal Normal Normal Exam: Looks non toxic, NAD, conversant Respiratory Additional comments: on O2 @ normal home rate, conversant, seems to have normal effort without distress Cardiovascular Cardiovascular exam: Present RRR GI/Abdominal Additional comments: soft and non distended, midline incision looks very good, ostomy edematous but viable with some liquid stool JPD is light serosanguineous drainage Extremities Exam Additional comments: well perfused A/P Assessment and plan (1) Colon perforation: Assessment and plan: POD #4 Ex Lap, Resection of Sigmoid Perforation with End Colostomy, Washout and Drainage Continue NGT for now while awaiting improved bowel function Increase activity as able OK for transfer to [place] [facility] from Surgical Standpoint Status: Acute Time Spent With Patient Time: Total time spent is greater than 50% in coordination of care (as documented) at patient's floor/unit and/or counseling patient:
[2022-08-07] MEDS: ENOXAPARIN 40 MG/0.4 ML SYRINGE SQ SCH (10:20)
[2022-08-07] MEDS: METOPROLOL SUCCINATE 50 MG TAB.XL.24H PO SCH (10:20)
[2022-08-07] MEDS: TAMSULOSIN 0.4 MG CAPSULE PO SCH (10:20)
[2022-08-07] MEDS: ATORVASTATIN 20 MG TABLET PO SCH (10:36)
[2022-08-07] MEDS: METOPROLOL TARTRATE 5 MG/5 ML VIAL IV PRN (11:58)
--- NOTE | 2022-08-07 13:50 | Internal Med Progress Note ---
SUBJECTIVE Subjective Patient information: Note initiated : 08/07/22 at 1:46 pm Service Date, if different from initiated Date: [] Patient: Fei Rodrigues 86 y/o M admitted on 08/03/22 for Colonoscopy. Chief Complaint: [] Interval history: Chief Complaint: [] HPI: Patient presented for elective colonoscopy due to recurrent diarrhea. The procedure was complicated by perforation. Dr. Mcfarland surgeon was contacted. Patient is on Eliquis, last taken yesterday morning. Kcentra ordered. Patient will need urgent ex lap. Patient denies any chest pain or shortness of breath. Does have abdominal pain. No fevers or chills. 08/04 Patient seems to feel little bit better today. Does have a headache and some chronic shortness of breath but no other complaints. Vital signs stable. Good urine output. 08/05 No significant events overnight, 2 L/min nasal oxygen supplementation cannula today. Vitals otherwise stable. Patient is confused, likely has postoperative delirium. Started melatonin at bedtime. Continues on antibiotics per surgery. 08/06 Patient continues on 2 L/min nasal cannula, obtained portable chest x-ray that showed bilateral predominantly basilar infiltrates, bilateral small pleural effusions. WBC downtrending. Procalcitonin as well as proBNP markedly elevated. Patient continues on Zosyn. Lasix 40 mg IV once today and tomorrow morning, monitor respiratory status for improvement with diuresis. Started Lovenox SQ for DVT prophylaxis, okay with general surgery. Resumed home Toprol 50 mg daily, discontinued Lopressor 5 units every 6 hours. Patient continues to have waxing and waning mental status consistent with delirium. 08/07 Appears to be resting more comfortably today, continues on 2 L/min nasal oxygen supplementation, otherwise no significant events overnight. Leukocytosis resolved on morning labs, hemoglobin 11.8. Potassium 3.2, replaced. Physical exam Head: Atraumatic, normal inspection. Eyes: normal appearance, no scleral icterus. Neck: full ROM Respiratory: 4 L/min nasal cannula, no respiratory distress. Cardiovascular: normal rate and rhythm, S1, S2. GI/Abdominal: Nasogastric tube, laparotomy incision, colostomy with scant bloody fluid in bag. Extremities: full range of motion, nontender. Neurological: CN II-XII intact, intact motor, intact sensation. Psychiatric: Impaired cognition. Skin: warm, normal color Constitutional Vitals: Vital Signs Temp Pulse Resp BP Pulse Ox O2 Del Method O2 Flow Rate 98.5 F 106 H 24 H 107/93 94 2 08/07/22 12:01 08/07/22 10:01 08/07/22 12:01 08/07/22 12:01 08/07/22 12:01 08/07/22 08:01 08/07/22 08:01 Period Temp Pulse Resp BP Sys/Lovell Pulse Ox O2 Del Method O2 Flow Rate Last 24 Hr 97.5 F-99.2 F 88-108 14-30 98-124/66-97 86-98 Nasal Cannula- Room Air 2-4 Intake and Output 08/06/22 08/07/22 08/07/22 21:59 05:59 13:59 Intake Total 654 03 7931 Output Total 8657 207 3458 Balance -1010 -895 -47 Weight 66.179 kg Intake & Output: Intake & Output 08/06/22 08/07/22 08/07/22 21:59 05:59 13:59 Intake Total 671 40 1096 Output Total 6540 367 2570 Balance -1010 -895 -47 Weight 66.179 kg Intake: IV 252 97 1542 Dextrose 5%-Lactated Ringers 1, 625 1000 000 ml @ 100 mls/hr IV .Q10H [facility] Rx#:[id number] Zosyn 3.375 gm In Dextrose 5% 50 53 in Water 50 ml @ 100 mls/hr IV Q6H [facility] Rx#:[id number] Oral 120 Tube Feeding 0 0 GI Tube Flush 50 Output: Gastric Drainage 150 100 Right Nare NG/OG 150 100 Drainage 80 20 Left Lower Abdomen TENA Drain 80 20 Drainage 225 Left Lower Abdomen TENA Drain 225 Urine Catheter Amount 6334 615 9160 Void Amount 50 Other: Urine Appearance Clear Clear Clear Uretheral (Michaels) Clear Clear Urine Color Yellow Yellow Light Natalya Uretheral (Michaels) Pale Yellow Urine Odor Normal Normal Normal OBJ DATA Labs CBC & Chem 7: 08/07/22 05:48 08/07/22 05:48 Labs: Abnormal Lab Results 08/07/22 08/07/22 08/06/22 05:48 05:48 12:34 WBC RBC 3.77 L Hgb 11.8 L Hct 36.4 L Immature Gran % (Auto) Neut % (Auto) 86.1 H Lymph % (Auto) 6.2 L Lymph # (Auto) 0.68 L Immature Gran # Absolute Neutrophils 9.43 H Potassium 3.2 L Glucose 130 H Uric Acid 2.1 L Calcium 8.5 L Phosphorus 2.0 L Direct Bilirubin 0.3 H Lactate Dehydrogenase NT-Pro-B Natriuret Pep Total Protein 5.5 L Albumin 2.7 L Procalcitonin 1.78 H 08/06/22 08/06/22 08/06/22 12:34 07:30 07:30 WBC 14.4 H RBC 3.91 L Hgb 12.1 L Hct 36.7 L Immature Gran % (Auto) 0.7 H Neut % (Auto) 89.0 H Lymph % (Auto) 4.4 L Lymph # (Auto) 0.63 L Immature Gran # 0.10 H Absolute Neutrophils 12.78 H Potassium Glucose 129 H Uric Acid 1.9 L Calcium 8.5 L Phosphorus 2.2 L Direct Bilirubin 0.3 H Lactate Dehydrogenase NT-Pro-B Natriuret Pep 25134.0 H Total Protein 5.8 L Albumin 3.1 L Procalcitonin 08/05/22 08/05/22 05:30 05:29 WBC 16.8 H RBC 3.72 L Hgb 11.5 L Hct 36.6 L Immature Gran % (Auto) 0.7 H Neut % (Auto) 90.1 H Lymph % (Auto) 4.3 L Lymph # (Auto) 0.73 L Immature Gran # 0.11 H Absolute Neutrophils 15.14 H Potassium Glucose 127 H Uric Acid Calcium Phosphorus 2.4 L Direct Bilirubin Lactate Dehydrogenase 264 H NT-Pro-B Natriuret Pep Total Protein 5.7 L Albumin 3.1 L Procalcitonin Meds: Medications Albuterol/Ipratropium (Ipratropium/Albuterol 3 Ml Ampul.Neb) 3 ml NEB Q4HP PRN PRN Reason: Shortness Of Breath Last Admin: 08/06/22 09:22 Dose: 3 ml Atorvastatin Calcium (Atorvastatin 20 Mg Tablet) 20 mg PO QDAY [facility] Last Admin: 08/07/22 10:36 Dose: 20 mg Enoxaparin Sodium (Enoxaparin 40 Mg/0.4 Ml Syringe) 40 mg SQ DAILY [facility] Last Admin: 08/07/22 10:20 Dose: 40 mg Dextrose/Lactated Ringer's (Dextrose 5%-Lactated Ringers) 1,000 mls @ 100 mls/hr IV .Q10H [facility] Last Admin: 08/07/22 07:59 Dose: 100 mls/hr Piperacillin Sod/Tazobactam (Sod 3.375 gm/ Dextrose) 50 mls @ 100 mls/hr IV Q6H [facility]; Protocol Last Admin: 08/07/22 13:05 Dose: 100 mls/hr Potassium Chloride 40 meq/ (Dextrose) 520 mls @ 130 mls/hr IV UD PRN PRN Reason: Potassium < 3 Magnesium Sulfate (Magnesium Sulfate) 2 gm in 50 mls @ 50 mls/hr IV UD PRN PRN Reason: Magnesium </= 1.6 Last Infusion: 08/04/22 05:00 Dose: Infused Acetaminophen (Ofirmev) 650 mg in 65 mls @ 130 mls/hr IV Q6HP PRN; Protocol PRN Reason: PAIN/FEVER > 101 Last Infusion: 08/07/22 08:30 Dose: Infused Melatonin (Melatonin 3 Mg Tablet) 3 mg PO HSP [facility] Metoprolol Succinate (Metoprolol Succinate 50 Mg Tab.Xl.24h) 50 mg PO DAILY [facility] Last Admin: 08/07/22 10:20 Dose: 50 mg Metoprolol Tartrate (Metoprolol Tartrate 5 Mg/5 Ml Vial) 5 mg IV Q2HP PRN PRN Reason: Tachyarrhythmias HR>110 Last Admin: 08/07/22 11:58 Dose: 5 mg Morphine Sulfate (Morphine 4 Mg/Ml Vial) 0 mg IV Q3HP PRN PRN Reason: Pain Last Admin: 08/05/22 00:27 Dose: 2 mg Ondansetron HCl (Ondansetron 4 Mg/2 Ml Vial) 4 mg IV Q4HP PRN PRN Reason: Nausea And Vomiting Pantoprazole Sodium (Pantoprazole 40 Mg Vial) 40 mg IV QAMAC [facility] Last Admin: 08/07/22 07:59 Dose: 40 mg Polyethylene Glycol (Polyethylene Glycol 3350 17 Gm Packet) 17 gm PO DAILYP PRN PRN Reason: Constipation Potassium Chloride (Potassium Chloride 20 Meq Tablet) 40 meq PO UD PRN PRN Reason: Potssium is 3-3.5 Potassium Chloride (Potassium Chloride 20 Meq Tablet) 40 meq PO UD PRN PRN Reason: Potassium < 3 Sodium Chloride (0.9 % Sodium Chloride 10 Ml Syringe) 10 ml IV Q8 [facility] Last Admin: 08/07/22 05:14 Dose: 10 ml Tamsulosin HCl (Tamsulosin 0.4 Mg Capsule) 0.4 mg PO QDAY [facility] Last Admin: 08/07/22 10:20 Dose: 0.4 mg A/P Narrative A/P Narrative: Assessment: 86-year-old male with a history of atrial fibrillation, 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 The patient underwent an exploratory laparotomy and end colostomy on 08/03/2022. 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) *Hypoxia likely secondary to pneumonia (aspiration ?) and CHF *Probable delirium *h/o Afib w/PPM: on eliquis/BB *BPH: *COPD (O2@night): *Chronic diarrhea: The reason he underwent colonoscopy P: -Postoperative surgical care/diet/analgesics/antibiotic per surgery -Monitor and replace electrolytes -monitor for bleeding -Resume home Toprol 50 mg daily, continue Lopressor IV as needed for A. fib with RVR. -Received Lasix 40 mg IV yesterday and this morning. -Holding home Eliquis for now per surgery recommendation. -Delirium bundle -pt/ot -ppx: Lovenox SQ and SCDs for now / ppi Time Spent With Patient Time: Total time spent is greater than 50% in coordination of care (as documented) at patient's floor/unit and/or counseling patient: QUALITY VTE Deep Vein Thrombosis/Pulmonary Embolism Present on Admission: No
[2022-08-08] MEDS: DEXTROSE 5%-LR 1,000 ML IV SCH ×2 (00:30→17:20)
[2022-08-08] MEDS: PIPERACILLIN SODIUM/TAZOBACTAM 3.375 GM in DEXTROSE 5% IN WATER 50 ML IV SCH ×4 (05:34→23:25)
[2022-08-08] MEDS: 0.9 % SODIUM CHLORIDE 10 ML SYRINGE IV SCH ×3 (05:35→20:05)
[2022-08-08 06:40] LABS: Basophils # (Auto) 0.02 K/mcL (0.00-0.30); Basophils % (Auto) 0.2 % (0.0-2.0); Eosinophils # (Auto) 0.23 K/mcL (0.00-0.70); Eosinophils % (Auto) 2.4 % (0.0-7.0); Hematocrit 37.5 % (40.1-51.0); Hemoglobin 12.3 g/dL (13.7-17.5); Lymphocytes # (Auto) 0.69 K/mcL (1.50-4.80); Lymphocytes % (Auto) 7.3 % (15.5-49.0); Mean Cell Volume 94.9 fL (80.0-100.0); Mean Corpuscular HGB Conc 32.8 g/dL (31.0-36.0); Mean Platelet Volume 10.8 fL (8.8-12.5); Monocytes # (Auto) 0.83 K/mcL (0.10-0.90); Monocytes % (Auto) 8.8 % (1.0-12.0); Neutrophils % (Auto) 80.8 % (38.0-78.0); Platelet Count 189 K/mcL (140-440); RBC 3.95 M/mcL (4.63-6.08); Red Cell Distribution Width 13.5 % (11.5-14.5); WBC 9.5 K/mcL (4.5-11.0)
[2022-08-08] MEDS: METOPROLOL TARTRATE 5 MG/5 ML VIAL IV PRN ×2 (07:40→16:50)
[2022-08-08] MEDS: ENOXAPARIN 40 MG/0.4 ML SYRINGE SQ SCH (08:14)
[2022-08-08] MEDS: PANTOPRAZOLE 40 MG VIAL IV SCH (08:14)
[2022-08-08] MEDS: TAMSULOSIN 0.4 MG CAPSULE PO SCH (08:15)
[2022-08-08] MEDS: METOPROLOL SUCCINATE 50 MG TAB.XL.24H PO SCH (08:16)
[2022-08-08] MEDS: ATORVASTATIN 20 MG TABLET PO SCH (08:16)
[2022-08-08 09:48] LABS: ALT/SGPT 11 U/L (<40); AST/SGOT 12 U/L (<40); Albumin 3.1 gm/dL (3.2-5.2); Albumin/Globulin Ratio 1.1 (1.0-2.3); Alkaline Phosphatase 69 U/L (39-117); Bilirubin,Direct 0.4 mg/dL (<0.3); Blood Urea Nitrogen 10 mg/dL (8-23); Calcium 8.6 mg/dL (8.6-10.4); Carbon Dioxide 29 mmol/L (22-30); Chloride 98 mmol/L (96-108); Globulin 2.7 gm/dL (2.2-3.7); Glomerular Filtration Rate 77; Glucose 100 mg/dL (70-105); Lactate Dehydrogenase 196 U/L (135-225); Phosphorous 2.8 mg/dL (2.5-4.5); Triglycerides 79 mg/dL (<150); Uric Acid 1.9 mg/dL (2.5-8.0)
--- NOTE | 2022-08-08 12:04 | General Surgery Progress Note ---
SUBJECTIVE Subjective Patient information: Note initiated : 08/08/22 at 11:55 am Service Date, if different from initiated Date: [] Patient: Fei Rodrigues 86 y/o M admitted on 08/03/22 for Colonoscopy. Chief Complaint: [] Minimal pain, feels well, has had increasing gas and stool in ostomy Constitutional Vitals: Vital Signs Temp Pulse Resp BP Pulse Ox O2 Del Method O2 Flow Rate 98.6 F 108 H 20 126/88 93 2 08/08/22 07:47 08/08/22 07:47 08/08/22 07:47 08/08/22 07:47 08/08/22 07:47 08/08/22 11:13 08/08/22 11:13 Period Temp Pulse Resp BP Sys/Lovell Pulse Ox O2 Del Method O2 Flow Rate Last 24 Hr 97.8 F-99.2 F 97-112 16-24 107-130/75-93 92-97 Nasal Cannula- Nasal Cannula 2-2 Intake and Output 08/07/22 08/08/22 08/08/22 21:59 05:59 13:59 Intake Total 1498.0909 226 50 Output Total 695 1090 1000 Balance 803.0909 -864 -950 Intake & Output: Intake & Output 08/07/22 08/08/22 08/08/22 21:59 05:59 13:59 Intake Total 1498.0909 226 50 Output Total 695 1090 1000 Balance 803.0909 -864 -950 Intake: IV 1498.0909 176 50 Dextrose 5%-Lactated Ringers 1, 874 126 000 ml @ 100 mls/hr IV .Q10H [facility] Rx#:[id number] Zosyn 3.375 gm In Dextrose 5% 50 50 50 in Water 50 ml @ 100 mls/hr IV Q6H [facility] Rx#:[id number] Potassium Phosphate 40 Meq In 509.0909 Dextrose 5% in Water 500 ml @ 127.273 mls/hr IV ONCE ONE Rx#: [id number] Oral 0 50 Tube Feeding 0 0 Output: Gastric Drainage 450 500 950 Right Nare NG/OG 450 500 950 Drainage 90 Left Lower Abdomen TENA Drain 90 Drainage 50 Left Lower Abdomen TENA Drain 50 Urine Catheter Amount 145 450 Stool 100 50 Other: Urine Appearance Clear Clear Uretheral (Michaels) Clear Clear Urine Color Bright Yellow Yellow Uretheral (Michaels) Yellow Yellow Urine Odor Normal Stool Color Brown Brown Stool Consistency Liquid Soft Liquid Exam: Conversant, seems oriented, non toxic Respiratory Additional comments: On O2, non labored speech, effort seems normal Cardiovascular Cardiovascular exam: Present irregular rhythm GI/Abdominal Additional comments: belly soft, non distended, minimally tender, ostomy bag in place and functioning, JPD light serosang. Extremities Exam Additional comments: well perfused A/P Assessment and plan (1) Colon perforation: Assessment and plan: POD #5 Ex Lap, Resection of Sigmoid Perforation, End Colostomy, Washout and Drainage Ostomy beginning to function but increased NGT drainage - re check plain films in AM, CT to follow if evidence of obstruction Continue NPO for now with NGT in place and re eval in am Leave JPD in place for now and continue IV ABs Status: Acute Time Spent With Patient Time: Total time spent is greater than 50% in coordination of care (as documented) at patient's floor/unit and/or counseling patient:
[2022-08-08] MEDS ORDERED: POTASSIUM CHLORIDE 40 MEQ in DEXTROSE 5% IN WATER 500 ML IV ONE (13:00)
--- NOTE | 2022-08-08 16:04 | Internal Med Progress Note ---
SUBJECTIVE Subjective Patient information: Note initiated : 08/08/22 at 4:02 pm Service Date, if different from initiated Date: [] Patient: Fei Rodrigues 86 y/o M admitted on 08/03/22 for Colonoscopy. Chief Complaint: [] Interval history: Chief Complaint: [] HPI: Patient presented for elective colonoscopy due to recurrent diarrhea. The procedure was complicated by perforation. Dr. Mcfarland surgeon was contacted. Patient is on Eliquis, last taken yesterday morning. Kcentra ordered. Patient will need urgent ex lap. Patient denies any chest pain or shortness of breath. Does have abdominal pain. No fevers or chills. 08/04 Patient seems to feel little bit better today. Does have a headache and some chronic shortness of breath but no other complaints. Vital signs stable. Good urine output. 08/05 No significant events overnight, 2 L/min nasal oxygen supplementation cannula today. Vitals otherwise stable. Patient is confused, likely has postoperative delirium. Started melatonin at bedtime. Continues on antibiotics per surgery. 08/06 Patient continues on 2 L/min nasal cannula, obtained portable chest x-ray that showed bilateral predominantly basilar infiltrates, bilateral small pleural effusions. WBC downtrending. Procalcitonin as well as proBNP markedly elevated. Patient continues on Zosyn. Lasix 40 mg IV once today and tomorrow morning, monitor respiratory status for improvement with diuresis. Started Lovenox SQ for DVT prophylaxis, okay with general surgery. Resumed home Toprol 50 mg daily, discontinued Lopressor 5 units every 6 hours. Patient continues to have waxing and waning mental status consistent with delirium. 08/07 Appears to be resting more comfortably today, continues on 2 L/min nasal oxygen supplementation, otherwise no significant events overnight. Leukocytosis resolved on morning labs, hemoglobin 11.8. Potassium 3.2, replaced. 08/08 Vitals about the same overnight, some tachycardia, increase Toprol to 75 mg daily. Replaced potassium level. Physical exam Head: Atraumatic, normal inspection. Eyes: normal appearance, no scleral icterus. Neck: full ROM Respiratory: 4 L/min nasal cannula, no respiratory distress. Cardiovascular: normal rate and rhythm, S1, S2. GI/Abdominal: Nasogastric tube, laparotomy incision, colostomy with scant bloody fluid in bag. Extremities: full range of motion, nontender. Neurological: CN II-XII intact, intact motor, intact sensation. Psychiatric: Impaired cognition. Skin: warm, normal color Constitutional Vitals: Vital Signs Temp Pulse Resp BP Pulse Ox O2 Del Method O2 Flow Rate 98.5 F 101 H 19 123/91 96 2 08/08/22 13:00 08/08/22 13:00 08/08/22 13:00 08/08/22 13:00 08/08/22 13:00 08/08/22 13:00 08/08/22 13:00 Period Temp Pulse Resp BP Sys/Lovell Pulse Ox O2 Del Method O2 Flow Rate Last 24 Hr 97.8 F-99.2 F 97-112 16-20 120-126/75-91 92-96 Nasal Cannula- Oxymask 2-2 Intake and Output 08/08/22 08/08/22 08/08/22 05:59 13:59 21:59 Intake Total 226 100 Output Total 1090 1000 Balance -864 -900 Intake & Output: Intake & Output 08/08/22 08/08/22 08/08/22 05:59 13:59 21:59 Intake Total 226 100 Output Total 1090 1000 Balance -864 -900 Intake: IV 176 100 Dextrose 5%-Lactated Ringers 1, 126 000 ml @ 100 mls/hr IV .Q10H [facility] Rx#:[id number] Zosyn 3.375 gm In Dextrose 5% 50 100 in Water 50 ml @ 100 mls/hr IV Q6H [facility] Rx#:[id number] Oral 50 Tube Feeding 0 Output: Gastric Drainage 500 950 Right Nare NG/OG 500 950 Drainage 90 Left Lower Abdomen TENA Drain 90 Drainage 50 Left Lower Abdomen TENA Drain 50 Urine Catheter Amount 450 Stool 50 Other: Urine Appearance Clear Uretheral (Michaels) Clear Urine Color Yellow Uretheral (Michaels) Yellow Stool Color Brown Stool Consistency Soft Liquid OBJ DATA Labs CBC & Chem 7: 08/08/22 05:35 08/08/22 07:49 Labs: Abnormal Lab Results 08/08/22 08/08/22 08/07/22 07:49 05:35 05:48 WBC RBC 3.95 L Hgb 12.3 L Hct 37.5 L Immature Gran % (Auto) Neut % (Auto) 80.8 H Lymph % (Auto) 7.3 L Lymph # (Auto) 0.69 L Immature Gran # Absolute Neutrophils Potassium 3.1 L 3.2 L Anion Gap 7.0 L Glucose 130 H Uric Acid 1.9 L 2.1 L Calcium 8.5 L Phosphorus 2.0 L Direct Bilirubin 0.4 H 0.3 H NT-Pro-B Natriuret Pep Total Protein 5.8 L 5.5 L Albumin 3.1 L 2.7 L Procalcitonin 08/07/22 08/06/22 08/06/22 05:48 12:34 12:34 WBC RBC 3.77 L Hgb 11.8 L Hct 36.4 L Immature Gran % (Auto) Neut % (Auto) 86.1 H Lymph % (Auto) 6.2 L Lymph # (Auto) 0.68 L Immature Gran # Absolute Neutrophils 9.43 H Potassium Anion Gap Glucose Uric Acid Calcium Phosphorus Direct Bilirubin NT-Pro-B Natriuret Pep 17438.0 H Total Protein Albumin Procalcitonin 1.78 H 08/06/22 08/06/22 07:30 07:30 WBC 14.4 H RBC 3.91 L Hgb 12.1 L Hct 36.7 L Immature Gran % (Auto) 0.7 H Neut % (Auto) 89.0 H Lymph % (Auto) 4.4 L Lymph # (Auto) 0.63 L Immature Gran # 0.10 H Absolute Neutrophils 12.78 H Potassium Anion Gap Glucose 129 H Uric Acid 1.9 L Calcium 8.5 L Phosphorus 2.2 L Direct Bilirubin 0.3 H NT-Pro-B Natriuret Pep Total Protein 5.8 L Albumin 3.1 L Procalcitonin Meds: Medications Albuterol/Ipratropium (Ipratropium/Albuterol 3 Ml Ampul.Neb) 3 ml NEB Q4HP PRN PRN Reason: Shortness Of Breath Last Admin: 08/06/22 09:22 Dose: 3 ml Atorvastatin Calcium (Atorvastatin 20 Mg Tablet) 20 mg PO QDAY [facility] Last Admin: 08/08/22 08:16 Dose: 20 mg Enoxaparin Sodium (Enoxaparin 40 Mg/0.4 Ml Syringe) 40 mg SQ DAILY [facility] Last Admin: 08/08/22 08:14 Dose: 40 mg Dextrose/Lactated Ringer's (Dextrose 5%-Lactated Ringers) 1,000 mls @ 100 mls/hr IV .Q10H [facility] Last Admin: 08/08/22 00:30 Dose: 100 mls/hr Piperacillin Sod/Tazobactam (Sod 3.375 gm/ Dextrose) 50 mls @ 100 mls/hr IV Q6H [facility]; Protocol Last Infusion: 08/08/22 13:11 Dose: Infused Potassium Chloride 40 meq/ (Dextrose) 520 mls @ 130 mls/hr IV UD PRN PRN Reason: Potassium < 3 Magnesium Sulfate (Magnesium Sulfate) 2 gm in 50 mls @ 50 mls/hr IV UD PRN PRN Reason: Magnesium </= 1.6 Last Infusion: 08/04/22 05:00 Dose: Infused Acetaminophen (Ofirmev) 650 mg in 65 mls @ 130 mls/hr IV Q6HP PRN; Protocol PRN Reason: PAIN/FEVER > 101 Last Infusion: 08/07/22 16:50 Dose: Infused Potassium Chloride 40 meq/ (Dextrose) 520 mls @ 130 mls/hr IV ONCE ONE Stop: 08/08/22 16:59 Melatonin (Melatonin 3 Mg Tablet) 3 mg PO HSP [facility] Metoprolol Succinate (Metoprolol Succinate 25 Mg Tab.Xl.24h) 75 mg PO DAILY [facility] Metoprolol Tartrate (Metoprolol Tartrate 5 Mg/5 Ml Vial) 5 mg IV Q2HP PRN PRN Reason: Tachyarrhythmias HR>110 Last Admin: 08/08/22 07:40 Dose: 5 mg Morphine Sulfate (Morphine 4 Mg/Ml Vial) 0 mg IV Q3HP PRN PRN Reason: Pain Last Admin: 08/05/22 00:27 Dose: 2 mg Ondansetron HCl (Ondansetron 4 Mg/2 Ml Vial) 4 mg IV Q4HP PRN PRN Reason: Nausea And Vomiting Pantoprazole Sodium (Pantoprazole 40 Mg Vial) 40 mg IV QAMAC [facility] Last Admin: 08/08/22 08:14 Dose: 40 mg Polyethylene Glycol (Polyethylene Glycol 3350 17 Gm Packet) 17 gm PO DAILYP PRN PRN Reason: Constipation Potassium Chloride (Potassium Chloride 20 Meq Tablet) 40 meq PO UD PRN PRN Reason: Potssium is 3-3.5 Last Admin: 08/08/22 12:40 Dose: 40 meq Potassium Chloride (Potassium Chloride 20 Meq Tablet) 40 meq PO UD PRN PRN Reason: Potassium < 3 Sodium Chloride (0.9 % Sodium Chloride 10 Ml Syringe) 10 ml IV Q8 [facility] Last Admin: 08/08/22 05:35 Dose: 10 ml Tamsulosin HCl (Tamsulosin 0.4 Mg Capsule) 0.4 mg PO QDAY [facility] Last Admin: 08/08/22 08:15 Dose: 0.4 mg A/P Narrative A/P Narrative: Assessment: 86-year-old male with a history of atrial fibrillation, 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 The patient underwent an exploratory laparotomy and end colostomy on 08/03/2022. 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) *Hypoxia likely secondary to pneumonia (aspiration ?) and CHF *Probable delirium *h/o Afib w/PPM: on eliquis/BB *BPH: *COPD (O2@night): *Chronic diarrhea: The reason he underwent colonoscopy P: -Postoperative surgical care/diet/analgesics/antibiotic per surgery -Monitor and replace electrolytes -monitor for bleeding -Increase Toprol to 75 mg daily, continue Lopressor IV as needed for A. fib with RVR. -Holding home Eliquis for now per surgery recommendation. -Delirium bundle -pt/ot -ppx: Lovenox SQ and SCDs for now / ppi Time Spent With Patient Time: Total time spent is greater than 50% in coordination of care (as documented) at patient's floor/unit and/or counseling patient: QUALITY VTE Deep Vein Thrombosis/Pulmonary Embolism Present on Admission: No
--- NOTE | 2022-08-08 21:18 | Internal Med Progress Note ---
SUBJECTIVE Subjective Patient information: Note initiated : 08/08/22 at 9:16 pm Service Date, if different from initiated Date: [] Patient: Fei Rodrigues 86 y/o M admitted on 08/03/22 for Colonoscopy. Chief Complaint: [] Interval history: Chief Complaint: [] HPI: Patient presented for elective colonoscopy due to recurrent diarrhea. The procedure was complicated by perforation. Dr. Mcfarland surgeon was contacted. Patient is on Eliquis, last taken yesterday morning. Kcentra ordered. Patient will need urgent ex lap. Patient denies any chest pain or shortness of breath. Does have abdominal pain. No fevers or chills. 08/04 Patient seems to feel little bit better today. Does have a headache and some chronic shortness of breath but no other complaints. Vital signs stable. Good urine output. 08/05 No significant events overnight, 2 L/min nasal oxygen supplementation cannula today. Vitals otherwise stable. Patient is confused, likely has postoperative delirium. Started melatonin at bedtime. Continues on antibiotics per surgery. 08/06 Patient continues on 2 L/min nasal cannula, obtained portable chest x-ray that showed bilateral predominantly basilar infiltrates, bilateral small pleural effusions. WBC downtrending. Procalcitonin as well as proBNP markedly elevated. Patient continues on Zosyn. Lasix 40 mg IV once today and tomorrow morning, monitor respiratory status for improvement with diuresis. Started Lovenox SQ for DVT prophylaxis, okay with general surgery. Resumed home Toprol 50 mg daily, discontinued Lopressor 5 units every 6 hours. Patient continues to have waxing and waning mental status consistent with delirium. 08/07 Appears to be resting more comfortably today, continues on 2 L/min nasal oxygen supplementation, otherwise no significant events overnight. Leukocytosis resolved on morning labs, hemoglobin 11.8. Potassium 3.2, replaced. 08/08 Vitals about the same overnight, some tachycardia, increase Toprol to 75 mg daily. Replaced potassium level. 08/09 Heart rate was in the 90s to low 100s overnight, continues on 2 L/min nasal cannula oxygen which is the patient's baseline. Pending laboratory results. Physical exam Head: Atraumatic, normal inspection. Eyes: normal appearance, no scleral icterus. Neck: full ROM Respiratory: 2 L/min nasal cannula, no respiratory distress. Cardiovascular: normal rate and rhythm, S1, S2. GI/Abdominal: Nasogastric tube, laparotomy incision, colostomy with scant bloody fluid in bag. Extremities: full range of motion, nontender. Neurological: CN II-XII intact, intact motor, intact sensation. Psychiatric: Normal mood. Skin: warm, normal color Constitutional Vitals: Vital Signs Temp Pulse Resp BP Pulse Ox O2 Del Method O2 Flow Rate 98.8 F 95 H 16 115/86 97 2 08/08/22 19:50 08/08/22 19:50 08/08/22 19:50 08/08/22 19:50 08/08/22 19:50 08/08/22 19:50 08/08/22 19:50 Period Temp Pulse Resp BP Sys/Lovell Pulse Ox O2 Del Method O2 Flow Rate Last 24 Hr 97.8 F-98.8 F 95-112 16-20 115-126/75-91 93-98 Nasal Cannula- Oxymask 2-2 Intake and Output 08/08/22 08/08/22 08/08/22 05:59 13:59 21:59 Intake Total 569 916 3643 Output Total 1090 1000 950 Balance -864 -900 100 Intake & Output: Intake & Output 08/08/22 08/08/22 08/08/22 05:59 13:59 21:59 Intake Total 459 185 7446 Output Total 1090 1000 950 Balance -864 -900 100 Intake: IV 509 893 5557 Dextrose 5%-Lactated Ringers 1, 126 1000 000 ml @ 100 mls/hr IV .Q10H [facility] Rx#:[id number] Zosyn 3.375 gm In Dextrose 5% 50 100 50 in Water 50 ml @ 100 mls/hr IV Q6H [facility] Rx#:[id number] Oral 50 Tube Feeding 0 0 Output: Gastric Drainage 500 950 200 Right Nare NG/OG 500 950 200 Drainage 90 Left Lower Abdomen TENA Drain 90 Drainage 50 50 Left Lower Abdomen TENA Drain 50 50 Urine Catheter Amount 450 400 Stool 50 300 Other: Urine Appearance Clear Clear Uretheral (Michaels) Clear Clear Urine Color Yellow Dark Yellow Uretheral (Michaels) Yellow Yellow Stool Color Brown Green Stool Consistency Soft Liquid Liquid OBJ DATA Labs CBC & Chem 7: 08/08/22 05:35 08/08/22 07:49 Labs: Abnormal Lab Results 08/08/22 08/08/22 08/07/22 07:49 05:35 05:48 WBC RBC 3.95 L Hgb 12.3 L Hct 37.5 L Immature Gran % (Auto) Neut % (Auto) 80.8 H Lymph % (Auto) 7.3 L Lymph # (Auto) 0.69 L Immature Gran # Absolute Neutrophils Potassium 3.1 L 3.2 L Anion Gap 7.0 L Glucose 130 H Uric Acid 1.9 L 2.1 L Calcium 8.5 L Phosphorus 2.0 L Direct Bilirubin 0.4 H 0.3 H NT-Pro-B Natriuret Pep Total Protein 5.8 L 5.5 L Albumin 3.1 L 2.7 L Procalcitonin 08/07/22 08/06/22 08/06/22 05:48 12:34 12:34 WBC RBC 3.77 L Hgb 11.8 L Hct 36.4 L Immature Gran % (Auto) Neut % (Auto) 86.1 H Lymph % (Auto) 6.2 L Lymph # (Auto) 0.68 L Immature Gran # Absolute Neutrophils 9.43 H Potassium Anion Gap Glucose Uric Acid Calcium Phosphorus Direct Bilirubin NT-Pro-B Natriuret Pep 40030.0 H Total Protein Albumin Procalcitonin 1.78 H 08/06/22 08/06/22 07:30 07:30 WBC 14.4 H RBC 3.91 L Hgb 12.1 L Hct 36.7 L Immature Gran % (Auto) 0.7 H Neut % (Auto) 89.0 H Lymph % (Auto) 4.4 L Lymph # (Auto) 0.63 L Immature Gran # 0.10 H Absolute Neutrophils 12.78 H Potassium Anion Gap Glucose 129 H Uric Acid 1.9 L Calcium 8.5 L Phosphorus 2.2 L Direct Bilirubin 0.3 H NT-Pro-B Natriuret Pep Total Protein 5.8 L Albumin 3.1 L Procalcitonin Meds: Medications Albuterol/Ipratropium (Ipratropium/Albuterol 3 Ml Ampul.Neb) 3 ml NEB Q4HP PRN PRN Reason: Shortness Of Breath Last Admin: 08/06/22 09:22 Dose: 3 ml Atorvastatin Calcium (Atorvastatin 20 Mg Tablet) 20 mg PO QDAY [facility] Last Admin: 08/08/22 08:16 Dose: 20 mg Enoxaparin Sodium (Enoxaparin 40 Mg/0.4 Ml Syringe) 40 mg SQ DAILY [facility] Last Admin: 08/08/22 08:14 Dose: 40 mg Dextrose/Lactated Ringer's (Dextrose 5%-Lactated Ringers) 1,000 mls @ 100 mls/hr IV .Q10H [facility] Last Infusion: 08/08/22 17:21 Dose: Infused Piperacillin Sod/Tazobactam (Sod 3.375 gm/ Dextrose) 50 mls @ 100 mls/hr IV Q6H [facility]; Protocol Last Infusion: 08/08/22 18:14 Dose: Infused Potassium Chloride 40 meq/ (Dextrose) 520 mls @ 130 mls/hr IV UD PRN PRN Reason: Potassium < 3 Magnesium Sulfate (Magnesium Sulfate) 2 gm in 50 mls @ 50 mls/hr IV UD PRN PRN Reason: Magnesium </= 1.6 Last Infusion: 08/04/22 05:00 Dose: Infused Acetaminophen (Ofirmev) 650 mg in 65 mls @ 130 mls/hr IV Q6HP PRN; Protocol PRN Reason: PAIN/FEVER > 101 Last Infusion: 08/07/22 16:50 Dose: Infused Melatonin (Melatonin 3 Mg Tablet) 3 mg PO HSP [facility] Metoprolol Succinate (Metoprolol Succinate 25 Mg Tab.Xl.24h) 75 mg PO DAILY [facility] Metoprolol Tartrate (Metoprolol Tartrate 5 Mg/5 Ml Vial) 5 mg IV Q2HP PRN PRN Reason: Tachyarrhythmias HR>110 Last Admin: 08/08/22 16:50 Dose: 5 mg Morphine Sulfate (Morphine 4 Mg/Ml Vial) 0 mg IV Q3HP PRN PRN Reason: Pain Last Admin: 08/05/22 00:27 Dose: 2 mg Ondansetron HCl (Ondansetron 4 Mg/2 Ml Vial) 4 mg IV Q4HP PRN PRN Reason: Nausea And Vomiting Pantoprazole Sodium (Pantoprazole 40 Mg Vial) 40 mg IV QAMAC [facility] Last Admin: 08/08/22 08:14 Dose: 40 mg Polyethylene Glycol (Polyethylene Glycol 3350 17 Gm Packet) 17 gm PO DAILYP PRN PRN Reason: Constipation Potassium Chloride (Potassium Chloride 20 Meq Tablet) 40 meq PO UD PRN PRN Reason: Potssium is 3-3.5 Last Admin: 08/08/22 12:40 Dose: 40 meq Potassium Chloride (Potassium Chloride 20 Meq Tablet) 40 meq PO UD PRN PRN Reason: Potassium < 3 Sodium Chloride (0.9 % Sodium Chloride 10 Ml Syringe) 10 ml IV Q8 [facility] Last Admin: 08/08/22 20:05 Dose: Not Given Tamsulosin HCl (Tamsulosin 0.4 Mg Capsule) 0.4 mg PO QDAY [facility] Last Admin: 08/08/22 08:15 Dose: 0.4 mg A/P Narrative A/P Narrative: Assessment: 86-year-old male with a history of atrial fibrillation, 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 The patient underwent an exploratory laparotomy and end colostomy on 08/03/2022. The patient is gradually improving postoperatively. 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) *Hypoxia likely secondary to pneumonia (aspiration ?) and CHF *Probable delirium *h/o Afib w/PPM: on eliquis/BB *BPH: *COPD (O2@night): *Chronic diarrhea: The reason he underwent colonoscopy P: -Postoperative surgical care/diet/analgesics/antibiotic per surgery -Monitor and replace electrolytes -monitor for bleeding -Continue Toprol to 75 mg daily for now, continue Lopressor IV as needed for A. fib with RVR. -Holding home Eliquis for now per surgery recommendation. -Delirium bundle -pt/ot -ppx: Lovenox SQ and SCDs for now / ppi Time Spent With Patient Time: Total time spent is greater than 50% in coordination of care (as documented) at patient's floor/unit and/or counseling patient: QUALITY VTE Deep Vein Thrombosis/Pulmonary Embolism Present on Admission: No
[2022-08-08] MEDS ORDERED: MAGNESIUM SULFATE 2 GM/50 ML BAG IV ONE (21:24)
[2022-08-09] MEDS: DEXTROSE 5%-LR 1,000 ML IV SCH ×4 (00:06→21:26)
[2022-08-09] MEDS: 0.9 % SODIUM CHLORIDE 10 ML SYRINGE IV SCH ×3 (05:01→21:26)
[2022-08-09] MEDS: PIPERACILLIN SODIUM/TAZOBACTAM 3.375 GM in DEXTROSE 5% IN WATER 50 ML IV SCH ×3 (05:01→18:09)
[2022-08-09] MEDS: PANTOPRAZOLE 40 MG VIAL IV SCH (07:21)
[2022-08-09] MEDS: TAMSULOSIN 0.4 MG CAPSULE PO SCH (09:55)
[2022-08-09] MEDS: METOPROLOL SUCCINATE 25 MG TAB.XL.24H PO SCH (09:55)
[2022-08-09] MEDS: ATORVASTATIN 20 MG TABLET PO SCH (09:55)
[2022-08-09] MEDS: ENOXAPARIN 40 MG/0.4 ML SYRINGE SQ SCH (09:55)
[2022-08-09 10:45] LABS: Basophils # (Auto) 0.02 K/mcL (0.00-0.30); Basophils % (Auto) 0.3 % (0.0-2.0); Eosinophils # (Auto) 0.27 K/mcL (0.00-0.70); Eosinophils % (Auto) 3.5 % (0.0-7.0); Hematocrit 37.2 % (40.1-51.0); Hemoglobin 12.3 g/dL (13.7-17.5); Lymphocytes # (Auto) 0.67 K/mcL (1.50-4.80); Lymphocytes % (Auto) 8.7 % (15.5-49.0); Mean Cell Volume 93.9 fL (80.0-100.0); Mean Corpuscular HGB Conc 33.1 g/dL (31.0-36.0); Monocytes # (Auto) 0.85 K/mcL (0.10-0.90); Neutrophils % (Auto) 75.6 % (38.0-78.0); Platelet Count 219 K/mcL (140-440); RBC 3.96 M/mcL (4.63-6.08); Red Cell Distribution Width 13.6 % (11.5-14.5); WBC 7.7 K/mcL (4.5-11.0)
[2022-08-09 11:19] LABS: ALT/SGPT 14 U/L (<40); AST/SGOT 19 U/L (<40); Albumin 2.9 gm/dL (3.2-5.2); Albumin/Globulin Ratio 1.2 (1.0-2.3); Alkaline Phosphatase 74 U/L (39-117); Bilirubin,Direct 0.2 mg/dL (<0.3); Bilirubin,Total 0.7 mg/dL (0.1-1.0); Blood Urea Nitrogen 9 mg/dL (8-23); Calcium 8.3 mg/dL (8.6-10.4); Carbon Dioxide 27 mmol/L (22-30); Chloride 101 mmol/L (96-108); Globulin 2.5 gm/dL (2.2-3.7); Glomerular Filtration Rate 77; Glucose 107 mg/dL (70-105); Lactate Dehydrogenase 210 U/L (135-225); Phosphorous 2.4 mg/dL (2.5-4.5); Triglycerides 80 mg/dL (<150); Uric Acid 1.8 mg/dL (2.5-8.0)
--- NOTE | 2022-08-09 14:15 | General Surgery Progress Note ---
SUBJECTIVE Subjective Patient information: Note initiated : 08/09/22 at 1:10 pm Service Date, if different from initiated Date: [] Patient: Fei Rodrigues 86 y/o M admitted on 08/03/22 for Colonoscopy. Chief Complaint: [] Doing well, ambulating in room, much improved and increased ostomy output, decreased NGT output Constitutional Vitals: Vital Signs Temp Pulse Resp BP Pulse Ox O2 Del Method O2 Flow Rate 98.3 F 91 H 16 102/67 94 2 08/09/22 11:59 08/09/22 11:59 08/09/22 11:59 08/09/22 11:59 08/09/22 11:59 08/09/22 11:59 08/09/22 11:59 Period Temp Pulse Resp BP Sys/Lovell Pulse Ox O2 Del Method O2 Flow Rate Last 24 Hr 98.0 F-98.8 F 90-95 16-20 102-160/4-86 93-98 Oxymask-Oxymask 2-2 Intake and Output 08/09/22 08/09/22 08/09/22 05:59 13:59 21:59 Intake Total 670 1050 Output Total 1135 215 Balance -465 835 Intake & Output: Intake & Output 08/09/22 08/09/22 08/09/22 05:59 13:59 21:59 Intake Total 670 1050 Output Total 1135 215 Balance -465 835 Intake: IV 670 1050 Dextrose 5%-Lactated Ringers 1, 1000 000 ml @ 100 mls/hr IV .Q10H [facility] Rx#:[id number] Zosyn 3.375 gm In Dextrose 5% 100 50 in Water 50 ml @ 100 mls/hr IV Q6H [facility] Rx#:[id number] Potassium Chloride 40 Meq In 520 Dextrose 5% in Water 500 ml @ 130 mls/hr IV ONCE ONE Rx#: [id number] Tube Feeding 0 Output: Gastric Drainage 350 Right Nare NG/OG 350 Drainage 135 65 Left Lower Abdomen TENA Drain 135 65 Urine Catheter Amount 300 Stool 350 150 Other: Urine Appearance Clear Uretheral (Michaels) Clear Urine Color Yellow Yellow Uretheral (Michaels) Yellow Urine Odor Uretheral (Michaels) Normal Stool Size Moderate Stool Color Green Green Black Stool Consistency Liquid Liquid Exam: Looks well, non toxic, NAD Respiratory Respiratory exam: Present normal respiratory exam Additional comments: non labored Cardiovascular Cardiovascular exam: Present irregular rhythm GI/Abdominal Additional comments: soft and non tender, non distended, no mass or other issue, drain is light serosang, stomal bag is full A/P Assessment and plan (1) Colon perforation: Assessment and plan: POD #6 Ex Lap, Resection of Sigmoid Perforation, End Colostomy with washout and drainage Improving bowel function - will clamp NGT and start light clears Continue to increase activity Status: Acute Time Spent With Patient Time: Total time spent is greater than 50% in coordination of care (as documented) at patient's floor/unit and/or counseling patient:
[2022-08-09] MEDS: METOPROLOL TARTRATE 5 MG/5 ML VIAL IV PRN (14:55)
[2022-08-09] MEDS: ACETAMINOPHEN 650 MG/65 ML BAG IV PRN (20:15)
[2022-08-10] MEDS: PIPERACILLIN SODIUM/TAZOBACTAM 3.375 GM in DEXTROSE 5% IN WATER 50 ML IV SCH ×5 (00:06→23:43)
[2022-08-10] MEDS: DEXTROSE 5%-LR 1,000 ML IV SCH ×2 (06:42→17:55)
[2022-08-10] MEDS: PANTOPRAZOLE 40 MG VIAL IV SCH (07:20)
[2022-08-10] MEDS: 0.9 % SODIUM CHLORIDE 10 ML SYRINGE IV SCH ×3 (07:21→21:32)
[2022-08-10 07:33] LABS: Basophils # (Auto) 0.04 K/mcL (0.00-0.30); Basophils % (Auto) 0.5 % (0.0-2.0); Eosinophils # (Auto) 0.38 K/mcL (0.00-0.70); Eosinophils % (Auto) 4.5 % (0.0-7.0); Hematocrit 35.5 % (40.1-51.0); Hemoglobin 11.8 g/dL (13.7-17.5); Lymphocytes # (Auto) 0.76 K/mcL (1.50-4.80); Mean Cell Volume 93.2 fL (80.0-100.0); Mean Corpuscular HGB Conc 33.2 g/dL (31.0-36.0); Monocytes # (Auto) 0.84 K/mcL (0.10-0.90); Neutrophils % (Auto) 75.2 % (38.0-78.0); Platelet Count 212 K/mcL (140-440); RBC 3.81 M/mcL (4.63-6.08); Red Cell Distribution Width 13.6 % (11.5-14.5); WBC 8.4 K/mcL (4.5-11.0)
[2022-08-10 08:01] LABS: ALT/SGPT 20 U/L (<40); AST/SGOT 21 U/L (<40); Albumin 2.8 gm/dL (3.2-5.2); Albumin/Globulin Ratio 1.2 (1.0-2.3); Alkaline Phosphatase 77 U/L (39-117); Bilirubin,Total 0.6 mg/dL (0.1-1.0); Blood Urea Nitrogen 8 mg/dL (8-23); Calcium 8.1 mg/dL (8.6-10.4); Carbon Dioxide 24 mmol/L (22-30); Chloride 102 mmol/L (96-108); Globulin 2.4 gm/dL (2.2-3.7); Glomerular Filtration Rate 85; Glucose 106 mg/dL (70-105)
[2022-08-10 08:02] LABS: Phosphorous 2.9 mg/dL (2.5-4.5)
[2022-08-10] MEDS: ATORVASTATIN 20 MG TABLET PO SCH (08:48)
[2022-08-10] MEDS: TAMSULOSIN 0.4 MG CAPSULE PO SCH (08:48)
[2022-08-10] MEDS: METOPROLOL SUCCINATE 25 MG TAB.XL.24H PO SCH (08:48)
[2022-08-10] MEDS: ENOXAPARIN 40 MG/0.4 ML SYRINGE SQ SCH (08:48)
--- NOTE | 2022-08-10 15:09 | Internal Med Progress Note ---
SUBJECTIVE Subjective Patient information: Note initiated : 08/10/22 at 2:59 pm Service Date, if different from initiated Date: [] Patient: Fei Rodrigues 86 y/o M admitted on 08/03/22 for Colonoscopy. Chief Complaint: [] Interval history: 08/10: Status post ex lap, partial bowel resections with ostomy bag placement due to above perforations on August 05, [address] Mcfarland. I am consulted on the case for the management of atrial fibrillations. Patient is currently on clear liquid diet, and with watery ostomy bag discharged. C diff negative. Patient denies any abdominal pain or tenderness. He denies any shortness of breath. He denies any chest pain or palpitations. Patient is on 2 L/min supplemental oxygen's. Patient resting heart rate in the 90s beats per minute. Continue metoprolol extended release 75 Mg p.o. daily, with a goal of resting heart rate less than or equal to 110 beats per minutes. No full dose anticoagulation as per surgery due to the possibility of additional surgery at the time being. Continue rest of the surgical management as per primary team. Constitutional Vitals: Vital Signs Temp Pulse Resp BP Pulse Ox O2 Del Method O2 Flow Rate 36.3 C 98 H 20 100/69 96 2 08/10/22 12:00 08/10/22 12:00 08/10/22 12:00 08/10/22 12:00 08/10/22 12:00 08/10/22 12:00 08/10/22 12:00 Period Temp Pulse Resp BP Sys/Lovell Pulse Ox O2 Del Method O2 Flow Rate Last 24 Hr 36.3 C-37.0 C 81-98 - 92-110/68-77 94-96 Nasal Cannula- Oxymask 2-2 Intake and Output 08/10/22 08/10/22 08/10/22 05:59 13:59 21:59 Intake Total 1133 410 Output Total 415 460 Balance 718 -50 Weight 64.818 kg Patient Weight 08/11/22 05:59 Weight 64.818 kg Intake & Output: Intake & Output 08/10/22 08/10/22 08/10/22 05:59 13:59 21:59 Intake Total 1133 410 Output Total 415 460 Balance 718 -50 Weight 64.818 kg Intake: IV 893 50 Dextrose 5%-Lactated Ringers 1, 843 0 000 ml @ 100 mls/hr IV .Q10H [facility] Rx#:[id number] Zosyn 3.375 gm In Dextrose 5% 50 50 in Water 50 ml @ 100 mls/hr IV Q6H [facility] Rx#:[id number] Oral 240 360 Tube Feeding 0 Output: Drainage 60 Left Lower Abdomen TENA Drain 60 Drainage 70 Left Lower Abdomen TENA Drain 70 Urine Catheter Amount 170 Stool 175 400 Other: Meal jello Percent of Meal Consumed 50% Urine Appearance Clear Urine Color Yellow Pale Urine Odor Normal Stool Color Green Stool Consistency Liquid Head Head exam: Present atraumatic and normal inspection Eye Eye exam: Present normal appearance ENT ENT exam: Present mucous membranes moist, normal exam and normal external ear exam Additional comments: NG tube in place Nasal cannula in place Neck Neck exam: Present normal inspection Respiratory Respiratory exam: Present normal respiratory exam Cardiovascular Cardiovascular exam: Present irregular rhythm Additional comments: Pacemaker in place GI/Abdominal GI/Abdominal exam: Absent normal bowel sounds Additional comments: TENA drain in place Ostomy bag in place Ventral abdominal surgical incision covered by wound dressing Additional comments: Michaels catheter in place Back Exam Back exam: Present normal inspection Neurological Exam Neurological exam: Present alert and oriented X3 Skin Skin exam: Present intact and warm OBJ DATA Labs CBC & Chem 7: 08/10/22 05:31 08/10/22 05:31 Labs: Abnormal Lab Results 08/10/22 08/10/22 08/09/22 05:31 05:31 09:40 RBC 3.81 L Hgb 11.8 L Hct 35.5 L Immature Gran % (Auto) 0.8 H Neut % (Auto) Lymph % (Auto) 9.0 L Lymph # (Auto) 0.76 L Immature Gran # 0.07 H Potassium Anion Gap 7.0 L Glucose 106 H 107 H Uric Acid 1.8 L Calcium 8.1 L 8.3 L Phosphorus 2.4 L Direct Bilirubin Total Protein 5.2 L 5.4 L Albumin 2.8 L 2.9 L 08/09/22 08/08/22 08/08/22 09:40 07:49 05:35 RBC 3.96 L 3.95 L Hgb 12.3 L 12.3 L Hct 37.2 L 37.5 L Immature Gran % (Auto) 0.9 H Neut % (Auto) 80.8 H Lymph % (Auto) 8.7 L 7.3 L Lymph # (Auto) 0.67 L 0.69 L Immature Gran # 0.07 H Potassium 3.1 L Anion Gap 7.0 L Glucose Uric Acid 1.9 L Calcium Phosphorus Direct Bilirubin 0.4 H Total Protein 5.8 L Albumin 3.1 L Meds: Medications Albuterol/Ipratropium (Ipratropium/Albuterol 3 Ml Ampul.Neb) 3 ml NEB Q4HP PRN PRN Reason: Shortness Of Breath Last Admin: 08/06/22 09:22 Dose: 3 ml Atorvastatin Calcium (Atorvastatin 20 Mg Tablet) 20 mg PO QDAY [facility] Last Admin: 08/10/22 08:48 Dose: 20 mg Enoxaparin Sodium (Enoxaparin 40 Mg/0.4 Ml Syringe) 40 mg SQ DAILY [facility] Last Admin: 08/10/22 08:48 Dose: 40 mg Dextrose/Lactated Ringer's (Dextrose 5%-Lactated Ringers) 1,000 mls @ 100 mls/hr IV .Q10H [facility] Last Admin: 08/10/22 06:42 Dose: 100 mls/hr Piperacillin Sod/Tazobactam (Sod 3.375 gm/ Dextrose) 50 mls @ 100 mls/hr IV Q6H [facility]; Protocol Last Admin: 08/10/22 11:50 Dose: 100 mls/hr Potassium Chloride 40 meq/ (Dextrose) 520 mls @ 130 mls/hr IV UD PRN PRN Reason: Potassium < 3 Magnesium Sulfate (Magnesium Sulfate) 2 gm in 50 mls @ 50 mls/hr IV UD PRN PRN Reason: Magnesium </= 1.6 Last Infusion: 08/04/22 05:00 Dose: Infused Acetaminophen (Ofirmev) 650 mg in 65 mls @ 130 mls/hr IV Q6HP [facility]; Protocol PRN Reason: PAIN/FEVER > 101 Last Infusion: 08/09/22 21:25 Dose: Infused Melatonin (Melatonin 3 Mg Tablet) 3 mg PO HSP [facility] Metoprolol Succinate (Metoprolol Succinate 25 Mg Tab.Xl.24h) 75 mg PO DAILY [facility] Last Admin: 08/10/22 08:48 Dose: 75 mg Metoprolol Tartrate (Metoprolol Tartrate 5 Mg/5 Ml Vial) 5 mg IV Q2HP PRN PRN Reason: Tachyarrhythmias HR>110 Last Admin: 08/09/22 14:55 Dose: 5 mg Morphine Sulfate (Morphine 4 Mg/Ml Vial) 0 mg IV Q3HP PRN PRN Reason: Pain Last Admin: 08/05/22 00:27 Dose: 2 mg Ondansetron HCl (Ondansetron 4 Mg/2 Ml Vial) 4 mg IV Q4HP PRN PRN Reason: Nausea And Vomiting Pantoprazole Sodium (Pantoprazole 40 Mg Vial) 40 mg IV QAMAC [facility] Last Admin: 08/10/22 07:20 Dose: 40 mg Polyethylene Glycol (Polyethylene Glycol 3350 17 Gm Packet) 17 gm PO DAILYP PRN PRN Reason: Constipation Potassium Chloride (Potassium Chloride 20 Meq Tablet) 40 meq PO UD PRN PRN Reason: Potssium is 3-3.5 Last Admin: 08/08/22 12:40 Dose: 40 meq Potassium Chloride (Potassium Chloride 20 Meq Tablet) 40 meq PO UD PRN PRN Reason: Potassium < 3 Sodium Chloride (0.9 % Sodium Chloride 10 Ml Syringe) 10 ml IV Q8 [facility] Last Admin: 08/10/22 07:21 Dose: 10 ml Tamsulosin HCl (Tamsulosin 0.4 Mg Capsule) 0.4 mg PO QDAY [facility] Last Admin: 08/10/22 08:48 Dose: 0.4 mg A/P Assessment and plan (1) Atrial fibrillation: Status: Acute (2) Colon perforation: Status: Acute (3) Anemia, normocytic normochromic: Status: Acute Narrative A/P Narrative: Assessment and Plans: 1. Atrial fibrillation with RVR: Inpatient med surg telemetry Continue metoprolol extended release 75 Mg p.o. daily, with a goal of resting heart rate less than or equal to 110 beats per minutes. No full dose anticoagulation as per surgery due to the possibility of additional surgery at the time being 2. Colon perforation: Status post ex lap, partial bowel resections with ostomy bag placement due to above perforations on August 05, [address] Mcfarland. I am consulted on the case for the management of atrial fibrillations. Patient is currently on clear liquid diet, and with watery ostomy bag discharged. C diff negative. Zosyn. IV PPI Post surgical management as per primary team 3. Post surgical anemia: cbc w/ auto diff in the morning to trend H/H GI ppx: IV PPI DVT ppx: Lovenox Code status: DNR Prognosis: guarded Disposition: inpatient med surg telemetry; pending SNF Time Spent With Patient Time: Total time spent is greater than 50% in coordination of care (as documented) at patient's floor/unit and/or counseling patient: Total time spent with greater than 50% in coordination of care (as documented) at patient's floor/unit and/or counseling patient:: 25 - 35 minutes QUALITY VTE Deep Vein Thrombosis/Pulmonary Embolism Present on Admission: No
--- NOTE | 2022-08-10 15:46 | XRay Report ---
INDICATION: eval for ileus vs SBO TECHNIQUE: Supine and upright abdomen. COMPARISON: Previous plain film examinations dated 08/05/2022, 08/06/2022 FINDINGS:Interval removal of esophagogastric tube. There is a surgical drain in the pelvis. There are skin rosie in a vertical midline incision. There is an aortic stent graft in place. Findings consistent with left lower quadrant ostomy. There is bowel gas which appears to be within the ascending colon and rectum. There is prominent small bowel gas in the left upper quadrant. Ileum is distended and measures approximately 4 cm in cross-sectional diameter. No biliary or portal venous gas. There is bibasilar pulmonary parenchymal density, left worse than right. Findings may be due to atelectasis but left basilar pneumonia cannot be excluded. Follow-up radiographs and clinical correlation recommended IMPRESSION: 1. Postoperative abdomen. 2. Interval removal of esophagogastric tube 3. Bowel gas in the right side of the abdomen is probably chronic. There is gas within the rectum 4. Dilated gas-filled small bowel may be consistent with postoperative ileus 5. Bibasilar pulmonary parenchymal infiltrates. Pneumonia is possible Interpreted and Authenticated by: Sai Celeste 08/10/22
[2022-08-10] MEDS ORDERED: SUCRETS LOZENGE PO PRN (17:33)
--- NOTE | 2022-08-10 21:14 | General Surgery Progress Note ---
SUBJECTIVE Subjective Patient information: Note initiated : 08/10/22 at 1:20 pm Service Date, if different from initiated Date: [] Patient: Fei Rodrigues 86 y/o M admitted on 08/03/22 for Colonoscopy. Chief Complaint: [] He feels well today, has been doing well with clears, C dff was negative, good stomal output Constitutional Vitals: Vital Signs Temp Pulse Resp BP Pulse Ox O2 Del Method O2 Flow Rate 97.6 F 95 H 20 103/71 96 2 08/10/22 16:00 08/10/22 16:00 08/10/22 16:00 08/10/22 16:00 08/10/22 16:00 08/10/22 18:30 08/10/22 18:30 Period Temp Pulse Resp BP Sys/Lovell Pulse Ox O2 Del Method O2 Flow Rate Last 24 Hr 97.3 F-98.1 F 87-98 20-20 100-110/68-77 94-96 Nasal Cannula- Oxymask 2-2 Intake and Output 08/10/22 08/10/22 08/10/22 05:59 13:59 21:59 Intake Total 1746 272 8579 Output Total 415 460 985 Balance 718 -50 115 Weight 142 lb 14.4 oz Patient Weight 08/11/22 05:59 Weight 142 lb 14.4 oz Intake & Output: Intake & Output 08/10/22 08/10/22 08/10/22 05:59 13:59 21:59 Intake Total 3353 959 7951 Output Total 415 460 985 Balance 718 -50 115 Weight 142 lb 14.4 oz Intake: IV 009 83 3980 Dextrose 5%-Lactated Ringers 1, 843 0 1000 000 ml @ 100 mls/hr IV .Q10H [facility] Rx#:[id number] Zosyn 3.375 gm In Dextrose 5% 50 50 100 in Water 50 ml @ 100 mls/hr IV Q6H [facility] Rx#:[id number] Oral 240 360 Tube Feeding 0 Output: Drainage 60 Left Lower Abdomen TENA Drain 60 Drainage 70 85 Left Lower Abdomen TENA Drain 70 85 Urine Catheter Amount 170 600 Stool 175 400 300 Other: Meal jello Percent of Meal Consumed 50% Urine Appearance Clear Clear Urine Color Yellow Yellow Pale Pale Urine Odor Normal Normal Stool Color Green Green Black Stool Consistency Liquid Liquid Watery Exam: Looks well, NAD, conversant Respiratory Respiratory exam: Present normal respiratory exam Additional comments: conversant, non labored Cardiovascular Cardiovascular exam: Present normal rate and rhythm and RRR GI/Abdominal Additional comments: soft and non distended, ostomy looks good, drain is light serous Extremities Exam Additional comments: well perfused A/P Assessment and plan (1) Colon perforation: Assessment and plan: POD #7 Ex Lap, Sigmoid Resection, End Colostomy with washout and drainage Did well with NGT clamped and plain films look improved significantly to my review D/C NGT D/C Michaels Continue clears for now and advance diet in am Status: Acute Time Spent With Patient Time: Total time spent is greater than 50% in coordination of care (as documented) at patient's floor/unit and/or counseling patient:
[2022-08-11] MEDS: PIPERACILLIN SODIUM/TAZOBACTAM 3.375 GM in DEXTROSE 5% IN WATER 50 ML IV SCH ×4 (05:28→23:50)
[2022-08-11] MEDS: DEXTROSE 5%-LR 1,000 ML IV SCH ×3 (05:28→19:32)
[2022-08-11] MEDS: 0.9 % SODIUM CHLORIDE 10 ML SYRINGE IV SCH ×3 (05:31→23:51)
[2022-08-11 06:46] LABS: Basophils # (Auto) 0.04 K/mcL (0.00-0.30); Basophils % (Auto) 0.5 % (0.0-2.0); Eosinophils # (Auto) 0.37 K/mcL (0.00-0.70); Eosinophils % (Auto) 4.6 % (0.0-7.0); Hematocrit 36.7 % (40.1-51.0); Hemoglobin 11.9 g/dL (13.7-17.5); Lymphocytes # (Auto) 0.61 K/mcL (1.50-4.80); Lymphocytes % (Auto) 7.6 % (15.5-49.0); Mean Cell Volume 94.8 fL (80.0-100.0); Mean Corpuscular HGB Conc 32.4 g/dL (31.0-36.0); Mean Platelet Volume 9.9 fL (8.8-12.5); Monocytes # (Auto) 0.75 K/mcL (0.10-0.90); Monocytes % (Auto) 9.3 % (1.0-12.0); Neutrophils % (Auto) 77.1 % (38.0-78.0); Platelet Count 237 K/mcL (140-440); RBC 3.87 M/mcL (4.63-6.08); Red Cell Distribution Width 13.5 % (11.5-14.5); WBC 8.1 K/mcL (4.5-11.0)
[2022-08-11 07:07] LABS: ALT/SGPT 20 U/L (<40); AST/SGOT 19 U/L (<40); Albumin 2.8 gm/dL (3.2-5.2); Albumin/Globulin Ratio 1.1 (1.0-2.3); Alkaline Phosphatase 74 U/L (39-117); Bilirubin,Total 0.5 mg/dL (0.1-1.0); Blood Urea Nitrogen 6 mg/dL (8-23); Calcium 8.5 mg/dL (8.6-10.4); Carbon Dioxide 27 mmol/L (22-30); Chloride 103 mmol/L (96-108); Globulin 2.6 gm/dL (2.2-3.7); Glomerular Filtration Rate 80; Glucose 100 mg/dL (70-105); Phosphorous 2.6 mg/dL (2.5-4.5)
[2022-08-11] MEDS: METOPROLOL SUCCINATE 25 MG TAB.XL.24H PO SCH (09:24)
[2022-08-11] MEDS: ATORVASTATIN 20 MG TABLET PO SCH (09:26)
[2022-08-11] MEDS: TAMSULOSIN 0.4 MG CAPSULE PO SCH (09:26)
[2022-08-11] MEDS: PANTOPRAZOLE 40 MG VIAL IV SCH (09:29)
[2022-08-11] MEDS: ENOXAPARIN 40 MG/0.4 ML SYRINGE SQ SCH (09:31)
--- NOTE | 2022-08-11 10:53 | Internal Med Progress Note ---
SUBJECTIVE Subjective Patient information: Note initiated : 08/11/22 at 10:50 am Service Date, if different from initiated Date: [] Patient: Fei Rodrigues 86 y/o M admitted on 08/03/22 for Colonoscopy. Chief Complaint: [] Interval history: 08/10: Status post ex lap, partial bowel resections with ostomy bag placement due to above perforations on August 05, [address] Mcfarland. I am consulted on the case for the management of atrial fibrillations. Patient is currently on clear liquid diet, and with watery ostomy bag discharged. C diff negative. Patient denies any abdominal pain or tenderness. He denies any shortness of breath. He denies any chest pain or palpitations. Patient is on 2 L/min supplemental oxygen's. Patient resting heart rate in the 90s beats per minute. Continue metoprolol extended release 75 Mg p.o. daily, with a goal of resting heart rate less than or equal to 110 beats per minutes. No full dose anticoagulation as per surgery due to the possibility of additional surgery at the time being. Continue rest of the surgical management as per primary team. 08/11: NG tube removed. Diet advanced to full liquid diet, and patient tolerated it well. Patient is on 2 L/min supplemental oxygen. Patient resting heart rate in the 80s beats per minute. Patient denies any abdominal pain or tenderness. He denies any shortness of breath. He denies any chest pain or palpitations. Continue metoprolol extended release 75 Mg p.o. daily, with a goal of resting heart rate less than or equal to 110 beats per minutes. No full dose anticoagulation as per surgery due to the possibility of additional surgery at the time being. Continue rest of the surgical management as per primary team. Constitutional Vitals: Vital Signs Temp Pulse Resp BP Pulse Ox O2 Del Method O2 Flow Rate 37.0 C 90 18 108/77 95 2 08/11/22 07:56 08/11/22 07:56 08/11/22 07:56 08/11/22 07:56 08/11/22 07:56 08/11/22 07:56 08/11/22 06:34 Period Temp Pulse Resp BP Sys/Lovell Pulse Ox O2 Del Method O2 Flow Rate Last 24 Hr 36.3 C-37.2 C 82-98 16-20 100-111/69-78 95-96 Nasal Cannula-Na ankur Cannula 2-2 Intake and Output 08/10/22 08/11/22 08/11/22 21:59 05:59 13:59 Intake Total 1100 1370 50 Output Total 985 965 Balance 115 405 50 Weight 64.455 kg Intake & Output: Intake & Output 08/10/22 08/11/22 08/11/22 21:59 05:59 13:59 Intake Total 1100 1370 50 Output Total 985 965 Balance 115 405 50 Weight 64.455 kg Intake: IV 1100 1050 50 Dextrose 5%-Lactated Ringers 1, 1000 1000 000 ml @ 100 mls/hr IV .Q10H [facility] Rx#:[id number] Zosyn 3.375 gm In Dextrose 5% 100 50 50 in Water 50 ml @ 100 mls/hr IV Q6H [facility] Rx#:[id number] Oral 320 Output: Drainage 85 65 Left Lower Abdomen TENA Drain 85 65 Urine Catheter Amount 600 Void Amount 450 Stool 300 450 Other: Urine Appearance Clear Clear Urine Color Yellow Dark Yellow Pale Urine Odor Normal Normal Stool Color Green Brown Black Black Stool Consistency Liquid Liquid Watery Head Head exam: Present atraumatic and normal inspection Eye Eye exam: Present normal appearance ENT ENT exam: Present mucous membranes moist, normal exam and normal external ear exam Additional comments: Nasal cannula in place Neck Neck exam: Present normal inspection Respiratory Respiratory exam: Present normal respiratory exam Cardiovascular Cardiovascular exam: Present irregular rhythm GI/Abdominal GI/Abdominal exam: Present normal bowel sounds Additional comments: TENA drain in place Ostomy bag in place Ventral abdominal surgical incision covered by wound dressing Back Exam Back exam: Present normal inspection Neurological Exam Neurological exam: Present alert and oriented X3 Skin Skin exam: Present intact and warm OBJ DATA Labs CBC & Chem 7: 08/11/22 05:20 08/11/22 05:20 Labs: Abnormal Lab Results 08/11/22 08/11/22 08/10/22 05:20 05:20 05:31 RBC 3.87 L Hgb 11.9 L Hct 36.7 L Immature Gran % (Auto) 0.9 H Lymph % (Auto) 7.6 L Lymph # (Auto) 0.61 L Immature Gran # 0.07 H Anion Gap 7.0 L BUN 6 L Glucose 106 H Uric Acid Calcium 8.5 L 8.1 L Phosphorus Total Protein 5.4 L 5.2 L Albumin 2.8 L 2.8 L 08/10/22 08/09/22 08/09/22 05:31 09:40 09:40 RBC 3.81 L 3.96 L Hgb 11.8 L 12.3 L Hct 35.5 L 37.2 L Immature Gran % (Auto) 0.8 H 0.9 H Lymph % (Auto) 9.0 L 8.7 L Lymph # (Auto) 0.76 L 0.67 L Immature Gran # 0.07 H 0.07 H Anion Gap 7.0 L BUN Glucose 107 H Uric Acid 1.8 L Calcium 8.3 L Phosphorus 2.4 L Total Protein 5.4 L Albumin 2.9 L Meds: Medications Albuterol/Ipratropium (Ipratropium/Albuterol 3 Ml Ampul.Neb) 3 ml NEB Q4HP PRN PRN Reason: Shortness Of Breath Last Admin: 08/06/22 09:22 Dose: 3 ml Atorvastatin Calcium (Atorvastatin 20 Mg Tablet) 20 mg PO QDAY [facility] Last Admin: 08/11/22 09:26 Dose: 20 mg Enoxaparin Sodium (Enoxaparin 40 Mg/0.4 Ml Syringe) 40 mg SQ DAILY [facility] Last Admin: 08/11/22 09:31 Dose: 40 mg Piperacillin Sod/Tazobactam (Sod 3.375 gm/ Dextrose) 50 mls @ 100 mls/hr IV Q6H [facility]; Protocol Last Infusion: 08/11/22 06:29 Dose: Infused Potassium Chloride 40 meq/ (Dextrose) 520 mls @ 130 mls/hr IV UD PRN PRN Reason: Potassium < 3 Magnesium Sulfate (Magnesium Sulfate) 2 gm in 50 mls @ 50 mls/hr IV UD PRN PRN Reason: Magnesium </= 1.6 Last Infusion: 08/04/22 05:00 Dose: Infused Acetaminophen (Ofirmev) 650 mg in 65 mls @ 130 mls/hr IV Q6HP PRN; Protocol PRN Reason: PAIN/FEVER > 101 Last Infusion: 08/09/22 21:25 Dose: Infused Dextrose/Lactated Ringer's (Dextrose 5%-Lactated Ringers) 1,000 mls @ 75 mls/hr IV .[id number] [facility] Last Admin: 08/11/22 08:51 Dose: 75 mls/hr Melatonin (Melatonin 3 Mg Tablet) 3 mg PO HSP [facility] Metoprolol Succinate (Metoprolol Succinate 25 Mg Tab.Xl.24h) 75 mg PO DAILY [facility] Last Admin: 08/11/22 09:24 Dose: 75 mg Metoprolol Tartrate (Metoprolol Tartrate 5 Mg/5 Ml Vial) 5 mg IV Q2HP PRN PRN Reason: Tachyarrhythmias HR>110 Last Admin: 08/09/22 14:55 Dose: 5 mg Morphine Sulfate (Morphine 4 Mg/Ml Vial) 0 mg IV Q3HP PRN PRN Reason: Pain Last Admin: 08/05/22 00:27 Dose: 2 mg Ondansetron HCl (Ondansetron 4 Mg/2 Ml Vial) 4 mg IV Q4HP PRN PRN Reason: Nausea And Vomiting Pantoprazole Sodium (Pantoprazole 40 Mg Vial) 40 mg IV QAMAC [facility] [place] Last Admin: 08/11/22 09:29 Dose: 40 mg Polyethylene Glycol (Polyethylene Glycol 3350 17 Gm Packet) 17 gm PO DAILYP PRN PRN Reason: Constipation Potassium Chloride (Potassium Chloride 20 Meq Tablet) 40 meq PO UD PRN PRN Reason: Potssium is 3-3.5 Last Admin: 08/08/22 12:40 Dose: 40 meq Potassium Chloride (Potassium Chloride 20 Meq Tablet) 40 meq PO UD PRN PRN Reason: Potassium < 3 Sodium Chloride (0.9 % Sodium Chloride 10 Ml Syringe) 10 ml IV Q8 [facility] Last Admin: 08/11/22 05:31 Dose: 10 ml Tamsulosin HCl (Tamsulosin 0.4 Mg Capsule) 0.4 mg PO QDAY [facility] [place] Last Admin: 08/11/22 09:26 Dose: 0.4 mg A/P Assessment and plan (1) Atrial fibrillation: Status: Acute (2) Colon perforation: Status: Acute (3) Anemia, normocytic normochromic: Status: Acute Narrative A/P Narrative: Assessment and Plans: 1. Atrial fibrillation with RVR: Inpatient med surg telemetry Continue metoprolol extended release 75 Mg p.o. daily, with a goal of resting heart rate less than or equal to 110 beats per minutes. No full dose anticoagulation as per surgery due to the possibility of additional surgery at the time being 2. Colon perforation: Status post ex lap, partial bowel resections with ostomy bag placement due to above perforations on August 05, [address] Mcfarland. I am consulted on the case for the management of atrial fibrillations. Patient is currently on full liquid diet, and with watery ostomy bag discharged. C diff negative. Zosyn. IV PPI Post surgical management as per primary team 3. Post surgical anemia: cbc w/ auto diff in the morning to trend H/H GI ppx: IV PPI DVT ppx: Lovenox Code status: DNR Prognosis: guarded Disposition: inpatient med surg telemetry; pending SNF Time Spent With Patient Time: Total time spent is greater than 50% in coordination of care (as documented) at patient's floor/unit and/or counseling patient: Total time spent with greater than 50% in coordination of care (as documented) at patient's floor/unit and/or counseling patient:: 25 - 35 minutes QUALITY VTE Deep Vein Thrombosis/Pulmonary Embolism Present on Admission: No
--- NOTE | 2022-08-11 14:14 | General Surgery Progress Note ---
SUBJECTIVE Subjective Patient information: Note initiated : 08/11/22 at 1140am Service Date, if different from initiated Date: [] Patient: Fei Rodrigues 86 y/o M admitted on 08/03/22 for Colonoscopy. Chief Complaint: [] Doing well, has tolerated oral intake well. NGT and lubin are both out Constitutional Vitals: Vital Signs Temp Pulse Resp BP Pulse Ox O2 Del Method O2 Flow Rate 98.4 F 80 16 105/74 98 2 08/11/22 12:00 08/11/22 12:00 08/11/22 12:00 08/11/22 12:00 08/11/22 12:00 08/11/22 12:00 08/11/22 08:00 Period Temp Pulse Resp BP Sys/Lovell Pulse Ox O2 Del Method O2 Flow Rate Last 24 Hr 97.6 F-98.9 F 80-96 16-20 103-111/71-78 95-98 Nasal Cannula- Nasal Cannula 2-2 Intake and Output 08/11/22 08/11/22 08/11/22 05:59 13:59 21:59 Intake Total 1370 460 Output Total 965 Balance 405 460 Intake & Output: Intake & Output 08/11/22 08/11/22 08/11/22 05:59 13:59 21:59 Intake Total 1370 460 Output Total 965 Balance 405 460 Intake: IV 1050 100 Dextrose 5%-Lactated Ringers 1, 1000 000 ml @ 100 mls/hr IV .Q10H [facility] Rx#:[id number] Zosyn 3.375 gm In Dextrose 5% 50 100 in Water 50 ml @ 100 mls/hr IV Q6H [facility] Rx#:[id number] Oral 320 360 Output: Drainage 65 Left Lower Abdomen TENA Drain 65 Void Amount 450 Stool 450 Other: Meal Breakfast Percent of Meal Consumed 100% Urine Appearance Clear Urine Color Dark Yellow Urine Odor Normal Stool Color Brown Brown Black Green Stool Consistency Liquid Liquid Watery Exam: Gen Looks well, non toxic Respiratory Additional comments: non labored, conversant Cardiovascular Cardiovascular exam: Present irregular rhythm GI/Abdominal Additional comments: soft and non tender, non distended, drain light serous ostomy looks good, working well Extremities Exam Additional comments: well perfused A/P Assessment and plan (1) Colon perforation: Assessment and plan: POD #8 Ex Lap, Sigmoid Resection, End Colostomy with washout and drainage for Colonic Perforation Doing Well Advance diet Decrease IVFs Continue to increase activity Possibly out to SNF in the AM Status: Acute Time Spent With Patient Time: Total time spent is greater than 50% in coordination of care (as documented) at patient's floor/unit and/or counseling patient:
[2022-08-12] MEDS: PIPERACILLIN SODIUM/TAZOBACTAM 3.375 GM in DEXTROSE 5% IN WATER 50 ML IV SCH ×3 (05:58→17:31)
[2022-08-12] MEDS: 0.9 % SODIUM CHLORIDE 10 ML SYRINGE IV SCH ×3 (05:58→22:00)
[2022-08-12] MEDS: DEXTROSE 5%-LR 1,000 ML IV SCH (06:50)
[2022-08-12] MEDS: PANTOPRAZOLE 40 MG VIAL IV SCH (07:17)
[2022-08-12 07:24] LABS: Basophils # (Auto) 0.03 K/mcL (0.00-0.30); Basophils % (Auto) 0.4 % (0.0-2.0); Eosinophils # (Auto) 0.28 K/mcL (0.00-0.70); Eosinophils % (Auto) 3.6 % (0.0-7.0); Hematocrit 35.7 % (40.1-51.0); Hemoglobin 11.6 g/dL (13.7-17.5); Lymphocytes % (Auto) 7.7 % (15.5-49.0); Mean Cell Volume 93.7 fL (80.0-100.0); Mean Corpuscular HGB Conc 32.5 g/dL (31.0-36.0); Mean Platelet Volume 9.8 fL (8.8-12.5); Monocytes # (Auto) 0.73 K/mcL (0.10-0.90); Monocytes % (Auto) 9.4 % (1.0-12.0); Neutrophils % (Auto) 78.3 % (38.0-78.0); Platelet Count 239 K/mcL (140-440); RBC 3.81 M/mcL (4.63-6.08); Red Cell Distribution Width 13.5 % (11.5-14.5); WBC 7.8 K/mcL (4.5-11.0)
[2022-08-12 08:23] LABS: ALT/SGPT 21 U/L (<40); AST/SGOT 17 U/L (<40); Albumin 2.9 gm/dL (3.2-5.2); Albumin/Globulin Ratio 1.5 (1.0-2.3); Alkaline Phosphatase 80 U/L (39-117); Bilirubin,Total 0.5 mg/dL (0.1-1.0); Blood Urea Nitrogen 5 mg/dL (8-23); Calcium 7.9 mg/dL (8.6-10.4); Carbon Dioxide 27 mmol/L (22-30); Chloride 100 mmol/L (96-108); Glomerular Filtration Rate 80; Glucose 88 mg/dL (70-105); Phosphorous 2.5 mg/dL (2.5-4.5)
[2022-08-12] MEDS: ENOXAPARIN 40 MG/0.4 ML SYRINGE SQ SCH (08:27)
[2022-08-12] MEDS: TAMSULOSIN 0.4 MG CAPSULE PO SCH (08:28)
[2022-08-12] MEDS: METOPROLOL SUCCINATE 25 MG TAB.XL.24H PO SCH (08:28)
[2022-08-12] MEDS: ATORVASTATIN 20 MG TABLET PO SCH (08:28)
--- NOTE | 2022-08-12 09:44 | General Surgery Progress Note ---
SUBJECTIVE Subjective Patient information: Note initiated : 08/12/22 at 9:42 am Service Date, if different from initiated Date: [] Patient: Fei Rodrigues 86 y/o M admitted on 08/03/22 for Colonoscopy. Chief Complaint: [] Looks and feels well, had some cramping this am but that has resolved. Ostomy output has been high and doing well with diet Constitutional Vitals: Vital Signs Temp Pulse Resp BP Pulse Ox O2 Del Method O2 Flow Rate 97.7 F 83 16 110/78 96 2 08/12/22 08:00 08/12/22 08:00 08/12/22 08:00 08/12/22 08:00 08/12/22 08:00 08/12/22 08:45 08/12/22 08:45 Period Temp Pulse Resp BP Sys/Lovell Pulse Ox O2 Del Method O2 Flow Rate Last 24 Hr 97.5 F-98.4 F 80-99 16-18 98-112/71-78 94-98 Nasal Cannula- Nasal Cannula 2-2 Intake and Output 08/11/22 08/12/22 08/12/22 21:59 05:59 13:59 Intake Total 1851 50 1410 Output Total 1530 845 Balance 321 -795 1410 Weight 141 lb 8 oz Intake & Output: Intake & Output 08/11/22 08/12/22 08/12/22 21:59 05:59 13:59 Intake Total 1851 50 1410 Output Total 1530 845 Balance 321 -795 1410 Weight 141 lb 8 oz Intake: IV 1851 50 1050 Dextrose 5%-Lactated Ringers 1, 1801 1000 000 ml @ 75 mls/hr IV .[id number] [facility] Rx#:[id number] Zosyn 3.375 gm In Dextrose 5% 50 50 50 in Water 50 ml @ 100 mls/hr IV Q6H [facility] Rx#:[id number] Oral 0 360 Output: Drainage 95 55 Left Lower Abdomen TENA Drain 95 55 Void Amount 885 515 Stool 550 275 Other: Meal Breakfast Percent of Meal Consumed 100% Feeding Ability Independent Urine Appearance Clear Clear Urine Color Dark Yellow Dark Yellow Urine Odor Normal Normal Stool Color Green Black Stool Consistency Liquid Watery Exam: Looks well, NAD Respiratory Respiratory exam: Present normal respiratory exam Cardiovascular Cardiovascular exam: Present normal rate and rhythm GI/Abdominal Additional comments: soft and non tender, non distended, ostomy looks good incision looks very good without redness or drainage JPD light serosang Extremities Exam Additional comments: well perfused A/P Assessment and plan (1) Colon perforation: Assessment and plan: POD #9 Ex Lap, Resection Sigmoid Perforation, End Colostomy with washout and drainage Doing Well Advance diet Saline lock IVF Increase activity ? SNF in AM Status: Acute Time Spent With Patient Time: Total time spent is greater than 50% in coordination of care (as documented) at patient's floor/unit and/or counseling patient:
--- NOTE | 2022-08-12 15:22 | Internal Med Progress Note ---
SUBJECTIVE Subjective Patient information: Note initiated : 08/12/22 at 3:16 pm Service Date, if different from initiated Date: [] Patient: Fei Rodrigues 86 y/o M admitted on 08/03/22 for Colonoscopy. Chief Complaint: [] Interval history: 08/10: Status post ex lap, partial bowel resections with ostomy bag placement due to above perforations on August 05, [address] Mcfarland. I am consulted on the case for the management of atrial fibrillations. Patient is currently on clear liquid diet, and with watery ostomy bag discharged. C diff negative. Patient denies any abdominal pain or tenderness. He denies any shortness of breath. He denies any chest pain or palpitations. Patient is on 2 L/min supplemental oxygen's. Patient resting heart rate in the 90s beats per minute. Continue metoprolol extended release 75 Mg p.o. daily, with a goal of resting heart rate less than or equal to 110 beats per minutes. No full dose anticoagulation as per surgery due to the possibility of additional surgery at the time being. Continue rest of the surgical management as per primary team. 08/11: NG tube removed. Diet advanced to full liquid diet, and patient tolerated it well. Patient is on 2 L/min supplemental oxygen. Patient resting heart rate in the 80s beats per minute. Patient denies any abdominal pain or tenderness. He denies any shortness of breath. He denies any chest pain or palpitations. Continue metoprolol extended release 75 Mg p.o. daily, with a goal of resting heart rate less than or equal to 110 beats per minutes. No full dose anticoagulation as per surgery due to the possibility of additional surgery at the time being. Continue rest of the surgical management as per primary team. 08/12: Patient is currently on a GI soft diet. There was no major overnight events. Heart rate controlled at 90s bpm. Patient is on 2 L/min supplemental oxygen. Patient denies any abdominal pain or tenderness. He denies any shortness of breath. He denies any chest pain or palpitations. Continue metoprolol extended release 75 Mg p.o. daily, with a goal of resting heart rate less than or equal to 110 beats per minutes. No full dose anticoagulation as per surgery due to the possibility of additional surgery at the time being. Make sure to resume Eliquis 5mg PO BID at discharge. Pending SNF placement. Constitutional Vitals: Vital Signs Temp Pulse Resp BP Pulse Ox O2 Del Method O2 Flow Rate 36.6 C 94 H 14 118/80 97 2 08/12/22 12:00 08/12/22 12:00 08/12/22 12:00 08/12/22 12:00 08/12/22 12:00 08/12/22 12:00 08/12/22 12:00 Period Temp Pulse Resp BP Sys/Lovell Pulse Ox O2 Del Method O2 Flow Rate Last 24 Hr 36.4 C-36.8 C 83-99 14-18 98-118/71-80 94-98 Nasal Cannula- Nasal Cannula 2-2 Intake and Output 08/12/22 08/12/22 08/12/22 05:59 13:59 21:59 Intake Total 50 2118 Output Total 845 630 Balance -795 1488 Weight 64.183 kg Patient Weight 08/13/22 05:59 Weight 64.183 kg Intake & Output: Intake & Output 08/12/22 08/12/22 08/12/22 05:59 13:59 21:59 Intake Total 50 2118 Output Total 845 630 Balance -795 1488 Weight 64.183 kg Intake: IV 50 1398 Dextrose 5%-Lactated Ringers 1, 1298 000 ml @ 75 mls/hr IV .[id number] [facility] Rx#:[id number] Zosyn 3.375 gm In Dextrose 5% 50 100 in Water 50 ml @ 100 mls/hr IV Q6H [facility] Rx#:[id number] Oral 0 720 Output: Drainage 55 30 Left Lower Abdomen TENA Drain 55 30 Void Amount 515 300 Stool 275 300 Other: Meal Lunch Percent of Meal Consumed 75% Feeding Ability Independent Urine Appearance Clear Urine Color Dark Yellow Urine Odor Normal Head Head exam: Present atraumatic and normal inspection Eye Eye exam: Present normal appearance ENT ENT exam: Present mucous membranes moist, normal exam and normal external ear exam Additional comments: Nasal cannula in place Neck Neck exam: Present normal inspection Respiratory Respiratory exam: Present normal respiratory exam Cardiovascular Cardiovascular exam: Present irregular rhythm GI/Abdominal GI/Abdominal exam: Present normal bowel sounds Additional comments: TENA drain in place Ostomy bag in place Ventral abdominal surgical incision covered by wound dressing Back Exam Back exam: Present normal inspection Neurological Exam Neurological exam: Present alert and oriented X3 Skin Skin exam: Present intact and warm OBJ DATA Labs CBC & Chem 7: 08/12/22 05:25 08/12/22 05:25 Labs: Abnormal Lab Results 08/12/22 08/12/22 08/11/22 05:25 05:25 05:20 RBC 3.81 L Hgb 11.6 L Hct 35.7 L Immature Gran % (Auto) 0.6 H Neut % (Auto) 78.3 H Lymph % (Auto) 7.7 L Lymph # (Auto) 0.60 L Immature Gran # Anion Gap 7.0 L BUN 5 L 6 L Glucose Calcium 7.9 L 8.5 L Total Protein 4.9 L 5.4 L Albumin 2.9 L 2.8 L Globulin 2.0 L 08/11/22 08/10/22 08/10/22 05:20 05:31 05:31 RBC 3.87 L 3.81 L Hgb 11.9 L 11.8 L Hct 36.7 L 35.5 L Immature Gran % (Auto) 0.9 H 0.8 H Neut % (Auto) Lymph % (Auto) 7.6 L 9.0 L Lymph # (Auto) 0.61 L 0.76 L Immature Gran # 0.07 H 0.07 H Anion Gap BUN Glucose 106 H Calcium 8.1 L Total Protein 5.2 L Albumin 2.8 L Globulin Meds: Medications Albuterol/Ipratropium (Ipratropium/Albuterol 3 Ml Ampul.Neb) 3 ml NEB Q4HP PRN PRN Reason: Shortness Of Breath Last Admin: 08/06/22 09:22 Dose: 3 ml Atorvastatin Calcium (Atorvastatin 20 Mg Tablet) 20 mg PO QDAY [facility] Last Admin: 08/12/22 08:28 Dose: 20 mg Enoxaparin Sodium (Enoxaparin 40 Mg/0.4 Ml Syringe) 40 mg SQ DAILY [facility] Last Admin: 08/12/22 08:27 Dose: 40 mg Piperacillin Sod/Tazobactam (Sod 3.375 gm/ Dextrose) 50 mls @ 100 mls/hr IV Q6H [facility]; Protocol Last Infusion: 08/12/22 12:36 Dose: Infused Potassium Chloride 40 meq/ (Dextrose) 520 mls @ 130 mls/hr IV UD PRN PRN Reason: Potassium < 3 Magnesium Sulfate (Magnesium Sulfate) 2 gm in 50 mls @ 50 mls/hr IV UD PRN PRN Reason: Magnesium </= 1.6 Last Infusion: 08/04/22 05:00 Dose: Infused Acetaminophen (Ofirmev) 650 mg in 65 mls @ 130 mls/hr IV Q6HP PRN; Protocol PRN Reason: PAIN/FEVER > 101 Last Infusion: 08/09/22 21:25 Dose: Infused Melatonin (Melatonin 3 Mg Tablet) 3 mg PO [facility] Metoprolol Succinate (Metoprolol Succinate 25 Mg Tab.Xl.24h) 75 mg PO DAILY [facility] Last Admin: 08/12/22 08:28 Dose: 75 mg Metoprolol Tartrate (Metoprolol Tartrate 5 Mg/5 Ml Vial) 5 mg IV Q2HP PRN PRN Reason: Tachyarrhythmias HR>110 Last Admin: 08/09/22 14:55 Dose: 5 mg Morphine Sulfate (Morphine 4 Mg/Ml Vial) 0 mg IV Q3HP PRN PRN Reason: Pain Last Admin: 08/05/22 00:27 Dose: 2 mg Ondansetron HCl (Ondansetron 4 Mg/2 Ml Vial) 4 mg IV Q4HP PRN PRN Reason: Nausea And Vomiting Pantoprazole Sodium (Pantoprazole 40 Mg Vial) 40 mg IV QAMAC [facility] Last Admin: 08/12/22 07:17 Dose: 40 mg Polyethylene Glycol (Polyethylene Glycol 3350 17 Gm Packet) 17 gm PO DAILYP PRN PRN Reason: Constipation Potassium Chloride (Potassium Chloride 20 Meq Tablet) 40 meq PO UD PRN PRN Reason: Potssium is 3-3.5 Last Admin: 08/08/22 12:40 Dose: 40 meq Potassium Chloride (Potassium Chloride 20 Meq Tablet) 40 meq PO UD PRN PRN Reason: Potassium < 3 Sodium Chloride (0.9 % Sodium Chloride 10 Ml Syringe) 10 ml IV Q8 [facility] Last Admin: 08/12/22 14:28 Dose: 10 ml Tamsulosin HCl (Tamsulosin 0.4 Mg Capsule) 0.4 mg PO QDAY [facility] Last Admin: 08/12/22 08:28 Dose: 0.4 mg A/P Assessment and plan (1) Atrial fibrillation: Status: Acute (2) Colon perforation: Status: Acute (3) Anemia, normocytic normochromic: Status: Acute Narrative A/P Narrative: Assessment and Plans: 1. Atrial fibrillation with RVR: Inpatient med surg telemetry Continue metoprolol extended release 75 Mg p.o. daily, with a goal of resting heart rate less than or equal to 110 beats per minutes. No full dose anticoagulation as per surgery due to the possibility of additional surgery at the time being. Resume Eliquis 5mg PO BID at/before hospital discharge. 2. Colon perforation: Status post ex lap, partial bowel resections with ostomy bag placement due to above perforations on August 05, [address] Mcfarland. I am consulted on the case for the management of atrial fibrillations. Patient is currently on GI soft diet, and with watery ostomy bag discharged. C diff negative. Zosyn. IV PPI Post surgical management as per primary team 3. Post surgical anemia: cbc w/ auto diff in the morning to trend H/H GI ppx: IV PPI DVT ppx: Lovenox; Resume Eliquis 5mg PO BID at/before hospital discharge Code status: DNR Prognosis: Stable Disposition: inpatient med surg telemetry; pending SNF Time Spent With Patient Time: Total time spent is greater than 50% in coordination of care (as documented) at patient's floor/unit and/or counseling patient: QUALITY VTE Deep Vein Thrombosis/Pulmonary Embolism Present on Admission: No
[2022-08-13] MEDS: PIPERACILLIN SODIUM/TAZOBACTAM 3.375 GM in DEXTROSE 5% IN WATER 50 ML IV SCH ×3 (00:17→11:34)
[2022-08-13] MEDS: ACETAMINOPHEN 650 MG/65 ML BAG IV PRN (01:59)
[2022-08-13] MEDS: 0.9 % SODIUM CHLORIDE 10 ML SYRINGE IV SCH (04:55)
[2022-08-13 06:54] LABS: Basophils # (Auto) 0.03 K/mcL (0.00-0.30); Basophils % (Auto) 0.4 % (0.0-2.0); Eosinophils # (Auto) 0.24 K/mcL (0.00-0.70); Eosinophils % (Auto) 3.6 % (0.0-7.0); Hematocrit 33.5 % (40.1-51.0); Hemoglobin 11.1 g/dL (13.7-17.5); Lymphocytes # (Auto) 0.55 K/mcL (1.50-4.80); Lymphocytes % (Auto) 8.2 % (15.5-49.0); Mean Cell Volume 93.6 fL (80.0-100.0); Mean Corpuscular HGB Conc 33.1 g/dL (31.0-36.0); Mean Platelet Volume 9.9 fL (8.8-12.5); Neutrophils % (Auto) 78.2 % (38.0-78.0); Platelet Count 247 K/mcL (140-440); RBC 3.58 M/mcL (4.63-6.08); Red Cell Distribution Width 13.4 % (11.5-14.5); WBC 6.7 K/mcL (4.5-11.0)
[2022-08-13 07:19] LABS: ALT/SGPT 17 U/L (<40); AST/SGOT 15 U/L (<40); Albumin 2.7 gm/dL (3.2-5.2); Albumin/Globulin Ratio 1.4 (1.0-2.3); Alkaline Phosphatase 74 U/L (39-117); Bilirubin,Total 0.5 mg/dL (0.1-1.0); Blood Urea Nitrogen 7 mg/dL (8-23); Calcium 8.2 mg/dL (8.6-10.4); Carbon Dioxide 25 mmol/L (22-30); Chloride 99 mmol/L (96-108); Glomerular Filtration Rate 80; Glucose 85 mg/dL (70-105); Phosphorous 2.9 mg/dL (2.5-4.5)
[2022-08-13] MEDS: PANTOPRAZOLE 40 MG VIAL IV SCH (07:28)
[2022-08-13] MEDS: ATORVASTATIN 20 MG TABLET PO SCH (08:23)
[2022-08-13] MEDS: ENOXAPARIN 40 MG/0.4 ML SYRINGE SQ SCH (08:23)
[2022-08-13] MEDS: METOPROLOL SUCCINATE 25 MG TAB.XL.24H PO SCH (08:23)
[2022-08-13] MEDS: TAMSULOSIN 0.4 MG CAPSULE PO SCH (08:23)
--- NOTE | 2022-08-13 10:23 | Internal Med Progress Note ---
SUBJECTIVE Subjective Patient information: Note initiated : 08/13/22 at 10:20 am Service Date, if different from initiated Date: [] Patient: Fei Rodrigues 86 y/o M admitted on 08/03/22 for Colonoscopy. Chief Complaint: [] Interval history: 08/10: Status post ex lap, partial bowel resections with ostomy bag placement due to above perforations on August 05, [address] Mcfarland. I am consulted on the case for the management of atrial fibrillations. Patient is currently on clear liquid diet, and with watery ostomy bag discharged. C diff negative. Patient denies any abdominal pain or tenderness. He denies any shortness of breath. He denies any chest pain or palpitations. Patient is on 2 L/min supplemental oxygen's. Patient resting heart rate in the 90s beats per minute. Continue metoprolol extended release 75 Mg p.o. daily, with a goal of resting heart rate less than or equal to 110 beats per minutes. No full dose anticoagulation as per surgery due to the possibility of additional surgery at the time being. Continue rest of the surgical management as per primary team. 08/11: NG tube removed. Diet advanced to full liquid diet, and patient tolerated it well. Patient is on 2 L/min supplemental oxygen. Patient resting heart rate in the 80s beats per minute. Patient denies any abdominal pain or tenderness. He denies any shortness of breath. He denies any chest pain or palpitations. Continue metoprolol extended release 75 Mg p.o. daily, with a goal of resting heart rate less than or equal to 110 beats per minutes. No full dose anticoagulation as per surgery due to the possibility of additional surgery at the time being. Continue rest of the surgical management as per primary team. 08/12: Patient is currently on a GI soft diet. There was no major overnight events. Heart rate controlled at 90s bpm. Patient is on 2 L/min supplemental oxygen. Patient denies any abdominal pain or tenderness. He denies any shortness of breath. He denies any chest pain or palpitations. Continue metoprolol extended release 75 Mg p.o. daily, with a goal of resting heart rate less than or equal to 110 beats per minutes. No full dose anticoagulation as per surgery due to the possibility of additional surgery at the time being. Make sure to resume Eliquis 5mg PO BID at discharge. Pending SNF placement. 08/13: Heart rate controlled, will continue metoprolol extended release 75 Mg p.o. daily. Will start the patient's on Eliquis 5 mg p.o. twice daily at discharge. Pending care home placement. Rest of the surgical management as per primary team. Constitutional Vitals: Vital Signs Temp Pulse Resp BP Pulse Ox O2 Del Method O2 Flow Rate 36.3 C 82 18 99/61 100 2 08/13/22 07:56 08/13/22 07:56 08/13/22 07:56 08/13/22 07:56 08/13/22 07:56 08/13/22 09:41 08/13/22 07:56 Period Temp Pulse Resp BP Sys/Lovell Pulse Ox O2 Del Method O2 Flow Rate Last 24 Hr 36.1 C-36.9 C 82-94 14-18 95-118/61-80 94-100 Nasal Cannula- Room Air 2-2 Intake and Output 08/12/22 08/13/22 08/13/22 21:59 05:59 13:59 Intake Total 408 215 50 Output Total 720 425 200 Balance -312 -210 -150 Weight 64.183 kg Intake & Output: Intake & Output 08/12/22 08/13/22 08/13/22 21:59 05:59 13:59 Intake Total 408 215 50 Output Total 720 425 200 Balance -312 -210 -150 Weight 64.183 kg Intake: IV 50 115 50 Zosyn 3.375 gm In Dextrose 5% 50 50 50 in Water 50 ml @ 100 mls/hr IV Q6H [facility] Rx#:[id number] Oral 358 100 Output: Drainage 35 Left Lower Abdomen TENA Drain 35 Drainage 35 25 Left Lower Abdomen TENA Drain 35 25 Void Amount 350 250 200 Stool 300 150 Other: Meal Dinner Percent of Meal Consumed 50% Feeding Ability Independent Urine Appearance Clear Clear Urine Color Yellow Yellow Urine Odor Normal Stool Size Copious Small Stool Color Brown Brown Green Green Stool Consistency Liquid Liquid Head Head exam: Present atraumatic and normal inspection Eye Eye exam: Present normal appearance ENT ENT exam: Present mucous membranes moist, normal exam and normal external ear exam Neck Neck exam: Present normal inspection Respiratory Respiratory exam: Present normal respiratory exam Cardiovascular Cardiovascular exam: Present normal rate and rhythm GI/Abdominal GI/Abdominal exam: Present normal bowel sounds Additional comments: TENA drain and ostomy in place Back Exam Back exam: Present normal inspection Neurological Exam Neurological exam: Present alert and oriented X3 Skin Skin exam: Present intact and warm OBJ DATA Labs CBC & Chem 7: 08/13/22 05:22 08/13/22 05:22 Labs: Abnormal Lab Results 08/13/22 08/13/22 08/12/22 05:22 05:22 05:25 RBC 3.58 L Hgb 11.1 L Hct 33.5 L Immature Gran % (Auto) 0.6 H Neut % (Auto) 78.2 H Lymph % (Auto) 8.2 L Lymph # (Auto) 0.55 L Immature Gran # Sodium 132 L Anion Gap BUN 7 L 5 L Calcium 8.2 L 7.9 L Total Protein 4.7 L 4.9 L Albumin 2.7 L 2.9 L Globulin 2.0 L 2.0 L 08/12/22 08/11/22 08/11/22 05:25 05:20 05:20 RBC 3.81 L 3.87 L Hgb 11.6 L 11.9 L Hct 35.7 L 36.7 L Immature Gran % (Auto) 0.6 H 0.9 H Neut % (Auto) 78.3 H Lymph % (Auto) 7.7 L 7.6 L Lymph # (Auto) 0.60 L 0.61 L Immature Gran # 0.07 H Sodium Anion Gap 7.0 L BUN 6 L Calcium 8.5 L Total Protein 5.4 L Albumin 2.8 L Globulin Meds: Medications Albuterol/Ipratropium (Ipratropium/Albuterol 3 Ml Ampul.Neb) 3 ml NEB Q4HP PRN PRN Reason: Shortness Of Breath Last Admin: 08/06/22 09:22 Dose: 3 ml Atorvastatin Calcium (Atorvastatin 20 Mg Tablet) 20 mg PO QDAY [facility] Last Admin: 08/13/22 08:23 Dose: 20 mg Enoxaparin Sodium (Enoxaparin 40 Mg/0.4 Ml Syringe) 40 mg SQ DAILY [facility] Last Admin: 08/13/22 08:23 Dose: 40 mg Piperacillin Sod/Tazobactam (Sod 3.375 gm/ Dextrose) 50 mls @ 100 mls/hr IV Q6H [facility]; Protocol Last Infusion: 08/13/22 06:41 Dose: Infused Potassium Chloride 40 meq/ (Dextrose) 520 mls @ 130 mls/hr IV UD PRN PRN Reason: Potassium < 3 Magnesium Sulfate (Magnesium Sulfate) 2 gm in 50 mls @ 50 mls/hr IV UD PRN PRN Reason: Magnesium </= 1.6 Last Infusion: 08/04/22 05:00 Dose: Infused Acetaminophen (Ofirmev) 650 mg in 65 mls @ 130 mls/hr IV Q6HP PRN; Protocol PRN Reason: PAIN/FEVER > 101 Last Infusion: 08/13/22 02:41 Dose: Infused Melatonin (Melatonin 3 Mg Tablet) 3 mg PO HSP [facility] Metoprolol Succinate (Metoprolol Succinate 25 Mg Tab.Xl.24h) 75 mg PO DAILY [facility] Last Admin: 08/13/22 08:23 Dose: 75 mg Metoprolol Tartrate (Metoprolol Tartrate 5 Mg/5 Ml Vial) 5 mg IV Q2HP PRN PRN Reason: Tachyarrhythmias HR>110 Last Admin: 08/09/22 14:55 Dose: 5 mg Morphine Sulfate (Morphine 4 Mg/Ml Vial) 0 mg IV Q3HP PRN PRN Reason: Pain Last Admin: 08/05/22 00:27 Dose: 2 mg Ondansetron HCl (Ondansetron 4 Mg/2 Ml Vial) 4 mg IV Q4HP PRN PRN Reason: Nausea And Vomiting Pantoprazole Sodium (Pantoprazole 40 Mg Vial) 40 mg IV QAMAC [facility] Last Admin: 08/13/22 07:28 Dose: 40 mg Polyethylene Glycol (Polyethylene Glycol 3350 17 Gm Packet) 17 gm PO DAILYP PRN PRN Reason: Constipation Potassium Chloride (Potassium Chloride 20 Meq Tablet) 40 meq PO UD PRN PRN Reason: Potssium is 3-3.5 Last Admin: 08/08/22 12:40 Dose: 40 meq Potassium Chloride (Potassium Chloride 20 Meq Tablet) 40 meq PO UD PRN PRN Reason: Potassium < 3 Sodium Chloride (0.9 % Sodium Chloride 10 Ml Syringe) 10 ml IV Q8 [facility] Last Admin: 08/13/22 04:55 Dose: 10 ml Tamsulosin HCl (Tamsulosin 0.4 Mg Capsule) 0.4 mg PO QDAY [facility] Last Admin: 08/13/22 08:23 Dose: 0.4 mg A/P Assessment and plan (1) Atrial fibrillation: Status: Acute (2) Colon perforation: Status: Acute (3) Anemia, normocytic normochromic: Status: Acute Narrative A/P Narrative: Assessment and Plans: 1. Atrial fibrillation with RVR: Inpatient med surg telemetry Continue metoprolol extended release 75 Mg p.o. daily, with a goal of resting heart rate less than or equal to 110 beats per minutes. No full dose anticoagulation as per surgery due to the possibility of additional surgery at the time being. Resume Eliquis 5mg PO BID at/before hospital discharge. 2. Colon perforation: Status post ex lap, partial bowel resections with ostomy bag placement due to above perforations on August 05, [address] Mcfarland. I am consulted on the case for the management of atrial fibrillations. Patient is currently on GI soft diet, and with watery ostomy bag discharged. C diff negative. Zosyn. IV PPI Post surgical management as per primary team 3. Post surgical anemia: cbc w/ auto diff in the morning to trend H/H GI ppx: IV PPI DVT ppx: Lovenox; Resume Eliquis 5mg PO BID at/before hospital discharge Code status: DNR Prognosis: Stable Disposition: inpatient med surg telemetry; pending SNF Time Spent With Patient Time: Total time spent is greater than 50% in coordination of care (as documented) at patient's floor/unit and/or counseling patient: QUALITY VTE Deep Vein Thrombosis/Pulmonary Embolism Present on Admission: No
--- NOTE | 2022-08-13 12:44 | General Surgery Progress Note ---
SUBJECTIVE Subjective Patient information: Note initiated : 08/13/22 at 8:41 am Service Date, if different from initiated Date: [] Patient: Fei Rodrigues 86 y/o M admitted on 08/03/22 for Colonoscopy. Chief Complaint: [] Doing well, feels good with oral intake and pain control. Ambulating well. Constitutional Vitals: Vital Signs Temp Pulse Resp BP Pulse Ox O2 Del Method O2 Flow Rate 97.4 F 82 18 99/61 100 2 08/13/22 07:56 08/13/22 07:56 08/13/22 07:56 08/13/22 07:56 08/13/22 07:56 08/13/22 09:41 08/13/22 07:56 Period Temp Pulse Resp BP Sys/Lovell Pulse Ox O2 Del Method O2 Flow Rate Last 24 Hr 97 F-98.4 F 82-90 15-18 95-108/61-75 94-100 Nasal Cannula-Room Air 2-2 Intake and Output 08/12/22 08/13/22 08/13/22 21:59 05:59 13:59 Intake Total 408 215 350 Output Total 720 425 200 Balance -312 -210 150 Weight 141 lb 8 oz Intake & Output: Intake & Output 08/12/22 08/13/22 08/13/22 21:59 05:59 13:59 Intake Total 408 215 350 Output Total 720 425 200 Balance -312 -210 150 Weight 141 lb 8 oz Intake: IV 50 115 50 Zosyn 3.375 gm In Dextrose 5% 50 50 50 in Water 50 ml @ 100 mls/hr IV Q6H [facility] Rx#:[id number] Oral 358 100 300 Output: Drainage 35 Left Lower Abdomen TENA Drain 35 Drainage 35 25 Left Lower Abdomen TENA Drain 35 25 Void Amount 350 250 200 Stool 300 150 Other: Meal Dinner Breakfast Percent of Meal Consumed 50% 100% Feeding Ability Independent Urine Appearance Clear Clear Urine Color Yellow Yellow Urine Odor Normal Stool Size Copious Small Stool Color Brown Brown Green Green Stool Consistency Liquid Liquid Exam: Looks well, non toxic Respiratory Respiratory exam: Present normal respiratory exam Cardiovascular Cardiovascular exam: Present normal rate and rhythm GI/Abdominal Additional comments: soft and non tender, non distended, no mass, midline incision ok, ostomy looks good, drain is scant Extremities Exam Additional comments: well perfused A/P Assessment and plan (1) Colon perforation: Assessment and plan: POD #10 Doing Well OK with SNF Transfer today Remove JPD OK to discontinue ABs @ full course completed Status: Acute Time Spent With Patient Time: Total time spent is greater than 50% in coordination of care (as documented) at patient's floor/unit and/or counseling patient:
--- NOTE | 2022-08-13 13:05 | Discharge Summary ---
Discharge Provider Provider IMPORTANT FOLLOW-UP INFORMATION FOR PCP: Patient information: Note initiated : 08/13/22 at 12:56 pm Service Date, if different from initiated Date: [] Patient: Fei Rodrigues 86 y/o M admitted on 08/03/22 for Colonoscopy. Chief Complaint: [] Mr Rodrigues was discharged on 08/13/22 after a 10 day hospital course following emergent operative intervention for Ex Lap, Resection of Sigmoid Perforation, End Colostomy with washout and drainage. He underwent Colonoscopy on 08/03/22 with a resultant perforation followed by immediate and emergent surgery as reviewed. He was in the ICU for several days and then transferred to the floor. He did well with gradual increase in strength and activity. His ostomy began to function around POD 6-7, his NGT was clamped and he was started on clears which he tolerated. The NGT was then removed and his diet gradually advanced. He was on a full course of IV Zosyn for intraperitoneal contamination following the perforation. His drain was removed on the day of discharge. His midline incision looked excellent throughout and he was discharged with rosie in place. His ostomy looked very good as well without issue. Date of admission: 08/03/22 17:15 Discharge date: 08/13/22 Primary care physician: Sai Elizabeth DO Admitting clinician: Isma Mcfarland Attending physician on admission: Isma Mcfarland Consults: 08/03/22 17:11 Consult to Physician [CONS] Routine Comment: Consulting Provider: Ranjeet Saravia Reason For Exam: Physician to Consult 08/03/22 23:41 Consult to Physician [CONS] Routine Comment: Consulting Provider: Isma Mcfarland Reason For Exam: Physician to Consult 08/06/22 08:45 Consult to Physician [CONS] Routine Comment: Consulting Provider: Isma Mcfarland Reason For Exam: Physician to Consult Attending physician on discharge: Isma Mcfarland Discharging clinician: Isma Mcfarland COURSE Hospital Course Hospital course: Mr Rodrigues was discharged on 08/13/22 after a 10 day hospital course following emergent operative intervention for Ex Lap, Resection of Sigmoid Perforation, End Colostomy with washout and drainage. He underwent Colonoscopy on 08/03/22 with a resultant perforation followed by immediate and emergent surgery as reviewed. He was in the ICU for several days and then transferred to the floor. He did well with gradual increase in strength and activity. His ostomy began to function around POD 6-7, his NGT was clamped and he was started on clears which he tolerated. The NGT was then removed and his diet gradually advanced. He was on a full course of IV Zosyn for intraperitoneal contamination following the perforation. His drain was removed on the day of discharge. His midline incision looked excellent throughout and he was discharged with rosie in place. His ostomy looked very good as well without issue. Discharge diagnosis: POD #10 Emergent Ex Lap with Sigmoid Resection, End Colostomy Reason for admission: Colonic Perforation Procedures: 08/03/22 Ex Lap, Sigmoid Resection, End Colostomy with washout and drainage Complications: none apparent Time Spent with Patient Time attestation: Total time spent providing and/or coordinating discharge services: Time spent: Greater than 30 minutes Physical Examination Vital Signs Vital signs: Temp Pulse Resp BP Pulse Ox O2 Del Method O2 Flow Rate 97.4 F 82 18 99/61 100 2 08/13/22 07:56 08/13/22 07:56 08/13/22 07:56 08/13/22 07:56 08/13/22 07:56 08/13/22 09:41 08/13/22 07:56 General physical appearance General physical exam: no distress Cardiovascular Cardiovascular exam IM: Present irregular rhythm Respiratory Respiratory exam: normal expansion and normal respiratory effort Abdomen Abdomen: Present soft and non tender; Absent distended Integumentary Integumentary: Present other (normal appearing intact skin ) Psychiatric Psychiatric: Present oriented to time, oriented to person and oriented to place Discharge Plan Patient/Caregiver Discharge Instructions Activity: increase activity as tolerated Diet: Regular Diet Instructions: Colostomy Care (DC), Colonoscopy (DC), Colectomy (DC) Activity Restrictions/Additional Instructions: keep incision clean and dry leave skin rosie in place - will remove in clinic follow up routine ostomy care Ok to shower briefly with supervision but no pools, baths, hot tubs, etc dry gauze over drain site, change as needed until dry May Call Dr Mcfarland at [phone] with any qeustions or concerns Prescriptions: New oxycodone 5 mg tablet 5 mg PO Q4H PRN (Reason: pain) Qty: 20 0RF Continued (DME) Oxygen Qty: 1 0RF Rx Instructions: 2 liters at night. tamsulosin 0.4 mg capsule 0.4 mg PO QDAY Qty: 90 3RF acetaminophen [Tylenol] 325 mg tablet 650 mg PO QDAY PRN (Reason: Pain) calcium carbonate-vitamin D3 500mg (1,250mg) -600 unit tablet 1 tab PO QDAY cyanocobalamin (vitamin B-12) [Vitamin B-12] 2,500 mcg tablet, sublingual 2,500 mcg SUBLINGUAL QDAY lactobac cmb #[id number] 1 cap PO QDAY multivitamin 1 each PO DAILY cholecalciferol (vitamin D3) 2,000 unit capsule 2,000 unit PO QDAY atorvastatin 20 mg tablet 20 mg PO QDAY omega-3 fatty acids [Fish Oil Concentrate] 1,000 mg capsule 1,000 mg PO QDAY apixaban 5 mg tablet 5 mg PO BID metoprolol succinate 50 mg tablet extended release 24 hr 50 mg PO QDAY magnesium oxide 400 mg magnesium capsule 400 mg PO QDAY Follow Up Plan Follow up with: Isma Mcfarland MD [Physician] - (Please call for a surgical follow up appointment.) Patient Disposition: [facility] Discharge Orders: Discharge Order (Routine); Ordered 08/13/22 Ordered By: Isma Mcfarland Pending Pending Pending: Resuscitation Status Do Not Resuscitate Diet GI Soft/Transitional Start Nery Oct 13 1253 Albuterol/Ipratropium (Ipratropium/Albuterol 3 Ml Ampul.Neb) 3 ml NEB Q4HP PRN PRN Reason: Shortness Of Breath Last Admin: 08/06/22 09:22 Dose: 3 ml Documented By: JUAN CARLOS Admin: 08/05/22 21:02 Dose: 3 ml Documented By: JUAN Atorvastatin Calcium (Atorvastatin 20 Mg Tablet) 20 mg PO QDAY [facility] Last Admin: 08/13/22 08:23 Dose: 20 mg Documented By: Admin: 08/12/22 08:28 Dose: 20 mg Documented By: Admin: 08/11/22 09:26 Dose: 20 mg Documented By: Co-signed By: Admin: 08/10/22 08:48 Dose: 20 mg Documented By: Admin: 08/09/22 09:55 Dose: 20 mg Documented By: Admin: 08/08/22 08:16 Dose: 20 mg Documented By: Admin: 08/07/22 10:36 Dose: 20 mg Documented By: Admin: 08/06/22 09:01 Dose: 20 mg Documented By: Admin: 08/05/22 11:34 Dose: 20 mg Documented By: Admin: 08/04/22 11:00 Dose: 20 mg Documented By: ARA Enoxaparin Sodium (Enoxaparin 40 Mg/0.4 Ml Syringe) 40 mg SQ DAILY [facility] Last Admin: 08/13/22 08:23 Dose: 40 mg Documented By: Admin: 08/12/22 08:27 Dose: 40 mg Documented By: Admin: 08/11/22 09:31 Dose: 40 mg Documented By: Co-signed By: Admin: 08/10/22 08:48 Dose: 40 mg Documented By: Admin: 08/09/22 09:55 Dose: 40 mg Documented By: Admin: 08/08/22 08:14 Dose: 40 mg Documented By: Admin: 08/07/22 10:20 Dose: 40 mg Documented By: Admin: 08/06/22 13:47 Dose: 40 mg Documented By: BETTY Piperacillin Sod/Tazobactam (Sod 3.375 gm/ Dextrose) 50 mls @ 100 mls/hr IV Q6H [facility]; Protocol Last Admin: 08/13/22 11:34 Dose: 100 mls/hr Documented By: Infusion: 08/13/22 06:41 Dose: 0 mls/hr Documented By: [email or web address] Admin: 08/13/22 04:55 Dose: 100 mls/hr Documented By: Infusion: 08/13/22 02:41 Dose: 0 mls/hr Documented By: Admin: 08/13/22 00:17 Dose: 100 mls/hr Documented By: Infusion: 08/12/22 18:08 Dose: 0 mls/hr Documented By: [email or web address] Admin: 08/12/22 17:31 Dose: 100 mls/hr Documented By: [email or web address] Infusion: 08/12/22 12:36 Dose: 0 mls/hr Documented By: [email or web address] Admin: 08/12/22 11:50 Dose: 100 mls/hr Documented By: Infusion: 08/12/22 06:45 Dose: 0 mls/hr Documented By: Admin: 08/12/22 05:58 Dose: 100 mls/hr Documented By: Infusion: 08/12/22 00:30 Dose: 0 mls/hr Documented By: Admin: 08/11/22 23:50 Dose: 100 mls/hr Documented By: Infusion: 08/11/22 19:00 Dose: 0 mls/hr Documented By: Admin: 08/11/22 18:22 Dose: 100 mls/hr Documented By: Infusion: 08/11/22 13:10 Dose: 0 mls/hr Documented By: Admin: 08/11/22 12:33 Dose: 100 mls/hr Documented By: Infusion: 08/11/22 06:29 Dose: 0 mls/hr Documented By: Admin: 08/11/22 05:28 Dose: 100 mls/hr Documented By: Infusion: 08/11/22 00:45 Dose: 0 mls/hr Documented By: Admin: 08/10/22 23:43 Dose: 100 mls/hr Documented By: Infusion: 08/10/22 18:40 Dose: 0 mls/hr Documented By: Admin: 08/10/22 17:47 Dose: 100 mls/hr Documented By: Infusion: 08/10/22 15:18 Dose: 100 mls/hr Documented By: Admin: 08/10/22 11:50 Dose: 100 mls/hr Documented By: Infusion: 08/10/22 06:21 Dose: 100 mls/hr Documented By: Admin: 08/10/22 05:51 Dose: 100 mls/hr Documented By: Infusion: 08/10/22 00:45 Dose: 0 mls/hr Documented By: Admin: 08/10/22 00:06 Dose: 100 mls/hr Documented By: Infusion: 08/09/22 19:44 Dose: 0 mls/hr Documented By: Admin: 08/09/22 18:09 Dose: 100 mls/hr Documented By: Infusion: 08/09/22 11:56 Dose: 0 mls/hr Documented By: Admin: 08/09/22 11:26 Dose: 100 mls/hr Documented By: Infusion: 08/09/22 05:31 Dose: 0 mls/hr Documented By: Admin: 08/09/22 05:01 Dose: 100 mls/hr Documented By: Infusion: 08/08/22 23:55 Dose: 0 mls/hr Documented By: Admin: 08/08/22 23:25 Dose: 100 mls/hr Documented By: Infusion: 08/08/22 18:14 Dose: 0 mls/hr Documented By: Admin: 08/08/22 17:44 Dose: 100 mls/hr Documented By: Infusion: 08/08/22 13:11 Dose: 0 mls/hr Documented By: Admin: 08/08/22 12:41 Dose: 100 mls/hr Documented By: Infusion: 08/08/22 06:48 Dose: 0 mls/hr Documented By: Admin: 08/08/22 05:34 Dose: 100 mls/hr Documented By: Infusion: 08/08/22 00:24 Dose: 0 mls/hr Documented By: Admin: 08/07/22 23:54 Dose: 100 mls/hr Documented By: Infusion: 08/07/22 17:56 Dose: 0 mls/hr Documented By: LAILA Co-signed By: GLORY Admin: 08/07/22 17:26 Dose: 100 mls/hr Documented By: LAILA Co-signed By: GLORY Infusion: 08/07/22 13:35 Dose: 0 mls/hr Documented By: LAILA Co-signed By: GLORY Admin: 08/07/22 13:05 Dose: 100 mls/hr Documented By: Infusion: 08/07/22 05:51 Dose: 0 mls/hr Documented By: Admin: 08/07/22 05:14 Dose: 100 mls/hr Documented By: Infusion: 08/07/22 05:14 Dose: 0 mls/hr Documented By: Infusion: 08/07/22 00:41 Dose: 0 mls/hr Documented By: Admin: 08/07/22 00:39 Dose: 100 mls/hr Documented By: Co-signed By: THEODORE Infusion: 08/06/22 18:00 Dose: 0 mls/hr Documented By: Admin: 08/06/22 17:16 Dose: 100 mls/hr Documented By: Infusion: 08/06/22 13:44 Dose: 0 mls/hr Documented By: Admin: 08/06/22 12:35 Dose: 100 mls/hr Documented By: Infusion: 08/06/22 06:30 Dose: 0 mls/hr Documented By: Admin: 08/06/22 05:52 Dose: 100 mls/hr Documented By: Co-signed By: THEODORE Infusion: 08/06/22 00:41 Dose: 100 mls/hr Documented By: Co-signed By: THEODORE Admin: 08/06/22 00:11 Dose: 100 mls/hr Documented By: Co-signed By: THEODORE Infusion: 08/05/22 18:27 Dose: 100 mls/hr Documented By: Co-signed By: THEODORE Admin: 08/05/22 17:57 Dose: 100 mls/hr Documented By: Infusion: 08/05/22 13:30 Dose: 0 mls/hr Documented By: Admin: 08/05/22 12:54 Dose: 100 mls/hr Documented By: Infusion: 08/05/22 06:35 Dose: 0 mls/hr Documented By: Admin: 08/05/22 05:56 Dose: 100 mls/hr Documented By: Infusion: 08/05/22 00:36 Dose: 100 mls/hr Documented By: Admin: 08/05/22 00:06 Dose: 100 mls/hr Documented By: Infusion: 08/04/22 19:12 Dose: 0 mls/hr Documented By: Admin: 08/04/22 18:15 Dose: 100 mls/hr Documented By: Infusion: 08/04/22 12:40 Dose: 0 mls/hr Documented By: Admin: 08/04/22 12:08 Dose: 100 mls/hr Documented By: Infusion: 08/04/22 06:05 Dose: 0 mls/hr Documented By: Admin: 08/04/22 05:35 Dose: 100 mls/hr Documented By: Infusion: 08/04/22 01:08 Dose: 100 mls/hr Documented By: Admin: 08/04/22 00:38 Dose: 100 mls/hr Documented By: TEMO Magnesium Sulfate (Magnesium Sulfate) 2 gm in 50 mls @ 50 mls/hr IV UD PRN PRN Reason: Magnesium </= 1.6 Last Infusion: 08/04/22 05:00 Dose: 0 mls/hr Documented By: Admin: 08/04/22 03:37 Dose: 50 mls/hr Documented By: TEMO Acetaminophen (Ofirmev) 650 mg in 65 mls @ 130 mls/hr IV Q6HP PRN; Protocol PRN Reason: PAIN/FEVER > 101 Last Infusion: 08/13/22 02:41 Dose: 0 mls/hr Documented By: Admin: 08/13/22 01:59 Dose: 130 mls/hr Documented By: Infusion: 08/09/22 21:25 Dose: 0 mls/hr Documented By: Admin: 08/09/22 20:15 Dose: 130 mls/hr Documented By: Infusion: 08/07/22 16:50 Dose: 0 mls/hr Documented By: LAILA Co-signed By: GLORY Admin: 08/07/22 16:20 Dose: 130 mls/hr Documented By: LAILA Co-signed By: GLORY Infusion: 08/07/22 08:30 Dose: 0 mls/hr Documented By: Admin: 08/07/22 08:00 Dose: 130 mls/hr Documented By: Infusion: 08/06/22 17:00 Dose: 0 mls/hr Documented By: Admin: 08/06/22 16:20 Dose: 130 mls/hr Documented By: [email or web address] Infusion: 08/05/22 22:30 Dose: 0 mls/hr Documented By: Admin: 08/05/22 21:59 Dose: 130 mls/hr Documented By: Co-signed By: THEODORE Infusion: 08/05/22 14:20 Dose: 0 mls/hr Documented By: Admin: 08/05/22 13:47 Dose: 130 mls/hr Documented By: Infusion: 08/05/22 05:57 Dose: 0 mls/hr Documented By: Admin: 08/05/22 03:34 Dose: 130 mls/hr Documented By: Infusion: 08/04/22 21:57 Dose: 0 mls/hr Documented By: Admin: 08/04/22 20:51 Dose: 130 mls/hr Documented By: Infusion: 08/04/22 14:38 Dose: 0 mls/hr Documented By: Admin: 08/04/22 14:06 Dose: 130 mls/hr Documented By: ARA Metoprolol Succinate (Metoprolol Succinate 25 Mg Tab.Xl.24h) 75 mg PO DAILY ORLIN Last Admin: 08/13/22 08:23 Dose: 75 mg Documented By: Admin: 08/12/22 08:28 Dose: 75 mg Documented By: Admin: 08/11/22 09:24 Dose: 75 mg Documented By: Co-signed By: Admin: 08/10/22 08:48 Dose: 75 mg Documented By: Admin: 08/09/22 09:55 Dose: 75 mg Documented By: BREANNE Metoprolol Tartrate (Metoprolol Tartrate 5 Mg/5 Ml Vial) 5 mg IV Q2HP PRN PRN Reason: Tachyarrhythmias HR>110 Last Admin: 08/09/22 14:55 Dose: 5 mg Documented By: Admin: 08/08/22 16:50 Dose: 5 mg Documented By: Admin: 08/08/22 07:40 Dose: 5 mg Documented By: Admin: 08/07/22 11:58 Dose: 5 mg Documented By: Admin: 08/06/22 17:16 Dose: 5 mg Documented By: Admin: 08/06/22 10:26 Dose: 5 mg Documented By: BETTY Morphine Sulfate (Morphine 4 Mg/Ml Vial) 0 mg IV Q3HP PRN PRN Reason: Pain Last Admin: 08/05/22 00:27 Dose: 2 mg Documented By: JAKE Pantoprazole Sodium (Pantoprazole 40 Mg Vial) 40 mg IV QAMAC [facility] Last Admin: 08/13/22 07:28 Dose: 40 mg Documented By: Admin: 08/12/22 07:17 Dose: 40 mg Documented By: Admin: 08/11/22 09:29 Dose: 40 mg Documented By: Co-signed By: Admin: 08/10/22 07:20 Dose: 40 mg Documented By: Admin: 08/09/22 07:21 Dose: 40 mg Documented By: Admin: 08/08/22 08:14 Dose: 40 mg Documented By: Admin: 08/07/22 07:59 Dose: 40 mg Documented By: Admin: 08/06/22 09:02 Dose: 40 mg Documented By: Admin: 08/05/22 07:06 Dose: 40 mg Documented By: Admin: 08/04/22 07:29 Dose: 40 mg Documented By: ARA Potassium Chloride (Potassium Chloride 20 Meq Tablet) 40 meq PO UD PRN PRN Reason: Potssium is 3-3.5 Last Admin: 08/08/22 12:40 Dose: 40 meq Documented By: KAVON Sodium Chloride (0.9 % Sodium Chloride 10 Ml Syringe) 10 ml IV Q8 ORLIN Last Admin: 08/13/22 04:55 Dose: 10 ml Documented By: Admin: 08/12/22 22:00 Dose: 10 ml Documented By: Admin: 08/12/22 14:28 Dose: 10 ml Documented By: Admin: 08/12/22 05:58 Dose: 10 ml Documented By: Admin: 08/11/22 23:51 Dose: 10 ml Documented By: Admin: 08/11/22 17:51 Dose: 10 ml Documented By: Admin: 08/11/22 05:31 Dose: 10 ml Documented By: Admin: 08/10/22 21:32 Dose: Not Given Documented By: Admin: 08/10/22 15:17 Dose: Not Given Documented By: Admin: 08/10/22 07:21 Dose: 10 ml Documented By: Admin: 08/09/22 21:26 Dose: Not Given Documented By: Admin: 08/09/22 12:44 Dose: Not Given Documented By: Admin: 08/09/22 05:01 Dose: 10 ml Documented By: Admin: 08/08/22 20:05 Dose: Not Given Documented By: Admin: 08/08/22 16:45 Dose: Not Given Documented By: [email or web address] Admin: 08/08/22 05:35 Dose: 10 ml Documented By: Admin: 08/07/22 20:16 Dose: Not Given Documented By: Admin: 08/07/22 16:09 Dose: Not Given Documented By: Admin: 08/07/22 05:14 Dose: 10 ml Documented By: Admin: 08/06/22 20:54 Dose: 10 ml Documented By: Co-signed By: THEODORE Admin: 08/06/22 12:25 Dose: Not Given Documented By: Admin: 08/06/22 05:53 Dose: Not Given Documented By: Admin: 08/06/22 00:33 Dose: 10 ml Documented By: Co-signed By: THEODORE Admin: 08/05/22 12:55 Dose: Not Given Documented By: Admin: 08/05/22 05:56 Dose: 10 ml Documented By: Admin: 08/04/22 21:59 Dose: 10 ml Documented By: Admin: 08/04/22 14:07 Dose: 10 ml Documented By: Admin: 08/04/22 05:34 Dose: 10 ml Documented By: Admin: 08/04/22 00:39 Dose: 10 ml Documented By: [email or web address] Tamsulosin HCl (Tamsulosin 0.4 Mg Capsule) 0.4 mg PO QDAY [facility] Last Admin: 08/13/22 08:23 Dose: 0.4 mg Documented By: Admin: 08/12/22 08:28 Dose: 0.4 mg Documented By: Admin: 08/11/22 09:26 Dose: 0.4 mg Documented By: Co-signed By: Admin: 08/10/22 08:48 Dose: 0.4 mg Documented By: Admin: 08/09/22 09:55 Dose: 0.4 mg Documented By: Admin: 08/08/22 08:15 Dose: 0.4 mg Documented By: Admin: 08/07/22 10:20 Dose: 0.4 mg Documented By: Admin: 08/06/22 09:01 Dose: 0.4 mg Documented By: Admin: 08/05/22 11:34 Dose: 0.4 mg Documented By: Admin: 08/04/22 10:59 Dose: 0.4 mg Documented By: ARA Shift Summary 08/13/22 02:51 Shift Summary by Evita Kamara Addendum entered by Evita Kamara RN 08/13/22 04:36: TENA serous drainage Original Note: Primary Diagnosis: Colonoscopy with sigmoid perforation Registration Status: - MS with Date of Surgery (if applicable): 08/03 Ex Lap, Resection of Sigmoid Colonic Perforation, End Colostomy, Washout and Drain Placement Pertinent Medical Dx/Issue(s): AV paced to left chest, AAA endograft, Afib, CAD, tachycardia, syncope, COPD, bronchitis, PNA, 2L NC AT HOME, rt. lower resection via thoracotomy d/t lung CA (in remission), gastritis, depression, anxiety Med management (antibiotics, diuretics, BP): Zosyn Q6H; Ofirmev 650 mg x 1 for headache Skin/Wound Care: Midline abd incision with silver dressing. TENA to LLQ. Ostomy to left mid abdomen, stoma beefy red. TQ2. Midline reinforced. Ostomy pouch changed twice this shift. TENA drain sponges changed rx ostomy drainage Vital Signs with Trends: VSS. afebrile O2, liter flow/saturations: 2L NC (home dose) Pain management (acute vs. chronic): PRN medication, relaxation, reposition Lab/Rad (abnormals, trends): MD notified of Ca 7.9(no orders). K+ 3.5, consider replacement this am with breakfast Neuro/Mental Status: A&O x 4 Cardiac Rhythm, Alarm Settings: AV paced with frequent PVCs and underlying A. fib. Goal HR <110. Communication order to notify MD if v.tach sustained>30 seconds occurs Urinary Elimination Device: Urinal Urinary output greater than 30mL/hr? Yes Date of last BM: 08/13, green/black effluent Lines/Tubes: 2" 20g KELLI; SL; TENA draining serosanguineous fluid. Activity: up with SBA FWW and GB to chair, TQ2 Recommendations/questions for MD: Pt is coughing scant amounts of blood tinged sputum. Pt is oxygenating normally. Pt told this RN in summary that he has been coughing/choking on bits of his food over the last few days. This RN placed consult for speech evaluation per protocol. Consider chest xray if needed. Discharge Plan (needs, disposition, etc): Accepted to [facility] when medically stable; likely discharged tomorrow Initialized on 08/13/22 02:51 - END OF NOTE
== END 2022-08-13 13:22 | DRG 908 ==
LOC: SSSU 13:15 → ICU 17:15 → MEDSUR 08-07 15:46
PROVIDERS: ADMIT Surgery Surgical Critical Care; ATTEND Surgery Surgical Critical Care

== ENCOUNTER 2022-10-06 18:29 | Inpatient (IN) ==
[2022-10-06] MEDS ORDERED: IOPAMIDOL 100 ML BOTTLE IV ONE (18:30)
[2022-10-06] MEDS ORDERED: morphine 4 MG/ML VIAL IV ONE (18:58)
[2022-10-06] MEDS ORDERED: 0.9 % SODIUM CHLORIDE 1,000 ML IV ONE (18:58)
[2022-10-06] MEDS ORDERED: ONDANSETRON 4 MG/2 ML VIAL IV ONE (19:00)
[2022-10-06 19:16] LABS: POC Calcium, Ionized 1.18 (1.16-1.32); POC Creatinine 0.9 (0.6-1.2); POC Potassium 4.1 (3.3-5.1)
[2022-10-06 19:40] LABS: Basophils # (Auto) 0.05 K/mcL (0.00-0.30); Basophils % (Auto) 0.3 % (0.0-2.0); Eosinophils # (Auto) 0.03 K/mcL (0.00-0.70); Eosinophils % (Auto) 0.2 % (0.0-7.0); Hematocrit 46.2 % (40.1-51.0); Hemoglobin 15.2 g/dL (13.7-17.5); Lymphocytes # (Auto) 0.64 K/mcL (1.50-4.80); Lymphocytes % (Auto) 3.3 % (15.5-49.0); Mean Cell Volume 90.8 fL (80.0-100.0); Mean Corpuscular HGB Conc 32.9 g/dL (31.0-36.0); Monocytes # (Auto) 0.93 K/mcL (0.10-0.90); Monocytes % (Auto) 4.7 % (1.0-12.0); Platelet Count 272 K/mcL (140-440); RBC 5.09 M/mcL (4.63-6.08); WBC 19.6 K/mcL (4.5-11.0)
--- NOTE | 2022-10-06 19:51 | Cat Scan Report ---
INDICATION: recent abd surgery with abd pain COMPARISON: Previous examination dated 09/01/2022 TECHNIQUE: Axial images were obtained through the abdomen and pelvis. Sagittally and coronally reformatted images. 70 mL Isovue 370 injected intravenously. Oral contrast material was not administered FINDINGS: Lung bases:There are cystic abnormalities consistent with honeycombing. There is reticular abnormality.. Liver:Negative. No focal intrahepatic mass. No focal abnormality. Liver contour is smooth. No evidence for cirrhosis Gallbladder, bilary:No calcified gallstones. No gallbladder wall thickening. No dilated intra or extrahepatic bile ducts. Spleen:No splenomegaly. Normal enhancement of splenic and portal veins. Pancreas:No pancreatic mass. No peripancreatic abnormality Adrenal glands:Negative Kidneys,ureters,bladder:No solid renal mass. No hydronephrosis. No obstructing or nonobstructing calculi. No hydroureter. No ureteral calculus. No bladder stone. No detectable bladder mass. Gastrointestinal: There is a left-sided colostomy. Rectum and sigmoid colon are not well visualized. Ascending and transverse colon's are essentially collapsed. There is marked dilation of jejunum and ileum. Jejunum and ileum are fluid-filled. Jejunum measures 4.5 cm in cross-sectional diameter. Stomach is dilated and fluid-filled. Appearance is consistent with mechanical small bowel obstruction. Transition point is to the right of midline in the upper pelvis. There is no detectable mass. There is no closed loop obstruction. Appendix: The appendix is nonvisualized Vascular:There is an aortobiiliac stent graft. This is unchanged. There is no intraluminal thrombus. External iliac arteries and common femoral arteries are negative. Lymphatic:No retroperitoneal or mesenteric adenopathy Mesentery, peritoneum: No free intraperitoneal fluid. No intra-abdominal abscess. There is no pneumoperitoneum Reproductive:Prostate is not well visualized due to beam hardening artifact Musculoskeletal:Left total hip arthroplasty. Mild compression deformity of the L2 vertebral body, unchanged. No sacral or pelvic fracture. No hip fracture No abdominal wall or inguinal hernia IMPRESSION: 1. Left-sided colostomy 2. Findings consistent with mechanical small bowel obstruction. Transition point is in the right side of the upper pelvis 3. Aortobiiliac stent graft is patent and unchanged 4. Probable pulmonary fibrosis The exam was performed using radiation dose optimization techniques including, but not limited to, automated exposure control, adjustment of the mA and/or kV according to patient size and use of iterative reconstruction technique. Interpreted and Authenticated by: Sai Celeste 10/06/22
[2022-10-06] MEDS ORDERED: PIPERACILLIN SODIUM/TAZOBACTAM 3.375 GM in DEXTROSE 5% IN WATER 50 ML IV ONE (20:01)
--- NOTE | 2022-10-06 20:13 | Emergency Department Note ---
Abdominal Pain HPI General Chief Complaint: Abdominal Pain Stated Complaint: abd pain, recent emergent surgery Time Seen by Provider: 10/06/22 18:39 Source: EMS Mode of arrival: EMS Limitations: no limitations History of Present Illness HPI Narrative: Narrative: 86-year-old male presents the emergency department complaining of abdominal pain. History of a sigmoidectomy secondary to colonoscopy perforation. And end up with an ostomy. He end up also getting C. difficile and had to be on vancomycin he just got out of the rehab center after this course on Tuesday. They have been doing well when he knows today he started having abdominal pain and there was less stool coming out of the ostomy. They are worried he may be have a small bowel obstruction. He said his pain is about 8 out of 10 centrally in the abdomen not really located to a certain area. No other complaints otherwise. No fevers no chills no nausea no vomiting. Related Data Home Medications Medication Instructions Recorded Confirmed acetaminophen 325 mg tablet 650 mg PO QDAY PRN Pain 06/07/16 09/22/22 (Tylenol) calcium carbonate 500 mg-vitamin 1 tab PO QDAY 06/07/16 09/22/22 D3 15 mcg (600 unit) tablet cyanocobalamin (vitamin B-12) 2,500 mcg sublingual QDAY 06/07/16 09/22/22 2,500 mcg sublingual tablet (Vitamin B-12) lactobac cmb #[id number] 1 cap PO QDAY 06/07/16 09/22/22 [Probiotic and Acidophilus] multivitamin 1 each PO DAILY 06/07/16 09/22/22 cholecalciferol (vitamin D3) 50 2,000 unit PO QDAY 01/16/19 09/22/22 mcg (2,000 unit) capsule atorvastatin 20 mg tablet 20 mg PO QDAY 04/03/19 09/22/22 omega-3 fatty acids 1,000 mg 1,000 mg PO QDAY 04/03/19 09/22/22 capsule (Fish Oil Concentrate) apixaban 5 mg tablet 5 mg PO BID 09/15/20 09/22/22 metoprolol succinate 50 mg 50 mg PO QDAY 03/18/22 09/22/22 tablet,extended release 24 hr magnesium oxide 400 mg PO QDAY 06/09/22 09/22/22 Previous Rx's Medication Instructions Recorded Oxygen #1 ea 10/20/20 tamsulosin 0.4 mg capsule 0.4 mg PO QDAY #90 caps 11/09/21 oxycodone 5 mg tablet 5 mg PO Q4H PRN pain #20 tabs 08/13/22 Allergies Allergy/AdvReac Type Severity Reaction Status Date / Time codeine AdvReac Mild Nausea Verified 09/01/22 13:06 Review of Systems ROS ROS Narrative: Narrative: All systems ED: reviewed and negative except as stated. [facility] Narrative Patient History Narrative: Narrative: Medical/Surgical/Family History All Active Problems (Updated 10/06/22 @ 20:28 by Noble Gee DO) Partial obstruction of small intestine (Acute) Dehydration (Acute) Pneumonia (Acute) C. difficile diarrhea (Acute) Complete obstruction of small intestine (Acute) Anemia, normocytic normochromic (Acute) Atrial fibrillation (Acute) Colon perforation (Acute) Nausea (Acute) Tingling sensation (Acute) Hemarthrosis of knee, right (Acute) Knee injury (Acute) Unstable right knee (Acute) Pain and swelling of right knee (Acute) Medicare annual wellness visit, initial (Acute) PAF (paroxysmal atrial fibrillation) (Chronic) Sinus node dysfunction (Chronic) Nonsustained ventricular tachycardia (Chronic) Lower urinary obstructive symptom (Chronic) BPH w urinary obs/LUTS (Chronic) Diarrhea (Chronic) Closed rib fracture (Acute) CAD (coronary artery disease) (Chronic) Ventricular tachycardia (Acute) Syncope, near (Acute) Hearing loss (Chronic) Cataracts, bilateral (Chronic) Vertigo (Chronic) Malignant neoplasm of bronchus and lung, unspecified site (Chronic) Positional vertigo (Acute) Presence of cardiac pacemaker (Chronic) Bilateral hydrocele (Chronic) Malignant neoplasm of lung (Chronic) Bruit of left carotid artery (Chronic) Weight loss (Chronic) Vasovagal syncope (Chronic 12/18/05) Acute sinusitis (Chronic 02/05/14) Schatzki's ring (Chronic) Lymphadenopathy (Chronic) Peripheral vascular disease (Chronic) Osteoporosis (Chronic) Osteoarthritis (Chronic) Onychomycosis (Chronic) Obstructive uropathy (Chronic) Lichen planus (Chronic) Right inguinal pain (Chronic) Accelerated idioventricular rhythm (Chronic) Nocturnal hypoxemia (Chronic) Hypotension (Chronic) Hyperlipidemia (Chronic) Hydrocele (Chronic 11/29/13) Hammer toe (Chronic) Family history of stress (Chronic) Esophagitis (Chronic) Enlarged prostate (Chronic) Dyspnea (Chronic) Dysphagia (Chronic 11/29/13) Dupuytren's contracture (Chronic) Depression (Chronic) Colon adenoma (Chronic) COPD (chronic obstructive pulmonary disease) (Chronic) Chronic bronchitis (Chronic) Bradycardia (Chronic 12/18/05) Low back pain (Chronic 12/24/06) Actinic keratosis (Chronic) Anemia (Chronic) Abdominal aortic aneurysm (AAA) (Chronic) Medical History Abdominal aortic aneurysm (AAA) Aortic endograft Accelerated idioventricular rhythm Actinic keratosis Acute sinusitis (02/05/14) Anemia BPH w urinary obs/LUTS Improved greatly with Flomax 0.4 mg daily. Bradycardia (12/18/05) Sinus of unknown origina Chronic bronchitis Closed fracture of wrist 10/10 right Closed hip fracture left Closed skull fracture (12/18/05) fell and hit head on the toilet, passed out. Colon adenoma 2004 COPD (chronic obstructive pulmonary disease) Depression Diarrhea Dupuytren's contracture Dysphagia (11/29/13) recurrent Dyspnea Enlarged prostate Esophagitis H/O Family history of stress Gastritis Hammer toe Right second and third toes History of blood transfusion 2 units History of ECG (09/30/15) History of echocardiogram 06/03/15 - [facility]. 03/29/19 - [place] [facility]. History of pacemaker (06/20/10) [employer] MODEL 327956 History of tobacco abuse Stopped Hydrocele (11/29/13) Bilateral large, left greater than right Hyperlipidemia Now on atorvastatin at 20 mg each day Hypotension Beta-aniyah added Lichen planus Low back pain (12/24/06) Lower urinary obstructive symptom Denies history of BPH or urinary obstructive symptoms. States symptoms just started about 6 months ago. Prostate only 2+ today and nontender. Smooth with no nodules. AUA score is 18 today and he has mixed quality of life due to his symptoms. We will check PSA. We will get urine sample with next set of pelvic pain. Lymphadenopathy Perililar. H/O. Malignant neoplasm of bronchus and lung, unspecified site 2011 non-small cell carcinoma Medicare annual wellness visit, initial Nocturnal hypoxemia Overnight pulse ox from August 2020 shows O2 sats <88% for 56 minutes total overnight. Nonsustained ventricular tachycardia Obstructive uropathy Onychomycosis Osteoarthritis Osteoporosis Peripheral vascular disease Asymptomatic, but abnormal MAGALY -0.43 on the right Arterial duplex of bilateral lower extremities ordered Continue statin. Not on aspirin due to being anticoagulated. Right inguinal pain Schatzki's ring Sinus node dysfunction Pacemaker Squamous cell carcinoma lung Vasovagal syncope (12/18/05) and collapse Weight loss Surgical History History of biopsy (09/15/07) right flank lesion History of bronchoscopy (06/01/12) History of colonoscopy (09/06/13) Two polypoid fragments of colonic mucosa with minimal surface hyperplastic change History of esophagogastroduodenoscopy (EGD) (09/07/11) 09/07/11 MICRO: CHRONIC GASTRITIS WITH INTESTINAL METAPLASIA AND FOCAL ACUTE INFLAMMATION. CONSULT: SCHATZKI'S RING, SMALL HIATAL HERNIA, GASTRITIS. 06/30/16 Schatzki's ring dilated and Egan's esophagus. History of exploratory laparotomy 08/03/2022-1. Exploratory laparotomy with resection of sigmoid perforation. 2. End colostomy. 3. Washout and drainage History of lobectomy of lung History of lobectomy of lung 06/11 RIGHT LOWER LOBE followed by chemotherapy History of lung biopsy (05/02/12) History of surgery (06/01/12) Mediastinoscopy History of thoracotomy (06/01/12) RIGHT LOWER LOBE WAS RESECTED THRU A LIMITED RIGHT THORACOTOMY History of tonsillectomy S/P AAA repair (~2012) Status post-operative repair of closed fracture of left hip 2010 hemiarthroplasty Family History Mother , age 76 Diabetes mellitus Heart disease Father , age 61 Heart disease Peptic ulcer Brother CAD (coronary artery disease) Social History Smoking Status: Former smoker Alcohol Intake Frequency: 0-2 drinks per day Substance Use: does not use Exam Narrative Narrative: Narrative: Vital signs noted General: Awake. Alert. No distress. Skin: Warm. Dry. No rash. HEENT: NCAT. PERRL. EOMI. No conjunctivitis. No nystagmus. No pharyngitis. Membranes moist. Neck: No PTP. Good ROM. No meningeal signs. No stridor. No thyromegaly. No JVD. Cardiovascular: RRR. No murmur. No rubs. No gallops. Respiratory: No respiratory distress. Breath sounds equal. Lungs clear. Gastrointestinal: Abdomen soft. Generalized tenderness of the abdomen not localized to a certain area. There is an ostomy that has about 10 cm that is protruding out with no active stool in his bag. Skin around the ostomy looks normal.. No distention. Normal bowel sounds. No palpable organomegaly or masses. Back: No deformity. No CVAT. Musculoskeletal: No tenderness. No swelling. No erythema. No edema. Good perip heral pulses x 4 Lymphatic: No palpable adenopathy. Neurological: No focal neurological deficits observed. CN 2-12 are intact. Good FTN. No pronator drift. General Limitations: no limitations Course Vital Signs Vital signs: Vital Signs Pulse Rate 85 10/06/22 18:31 Respiratory Rate 20 10/06/22 18:31 Blood Pressure 126/90 10/06/22 18:31 Pulse Oximetry (%) 98 10/06/22 18:31 Oxygen Delivery Method 10/06/22 18:31 Temperature 96.7 F L 10/06/22 18:55 Pulse Rate 85 10/06/22 18:31 Respiratory Rate 20 10/06/22 18:31 Blood Pressure 126/90 10/06/22 18:31 Pulse Oximetry (%) 98 10/06/22 18:31 Oxygen Delivery Method 10/06/22 18:31 MDM MDM Narrative Medical decision making narrative: Narrative: About possible small bowel obstruction versus other acute pathology based on patient's recent surgeries. Went and got basic labs including CBC chemistry as well as a lactate. Lactate came back negative for bowel ischemia. His CBC did show a leukocytosis unsure really what caused this. But went ahead and started him on Zosyn as well as got blood cultures. CMP otherwise also normal. I did get a CT which was read by radiology as having a right upper qu adrant small bowel obstruction with a transition point in the right upper quadrant. It did not say partial or complete. I then gave him morphine for pain control Zofran for nausea IV fluids rehydration. Spoke with Dr. Cohen the on-call surgeon who recommended NG tube antibiotics and admitting to the hospitalist. I then spoke with Dr. RICHARDS the hospitalist who has agreed to admit the patient to their service. Patient admitted in fair condition. Lab Data Result diagrams: 10/06/22 19:09 Labs: Lab Results 10/06/22 10/06/22 10/06/22 Range/Units 19:09 19:09 19:12 WBC 19.6 H (4.5-11.0) K/mcL RBC 5.09 (4.63-6.08) M/mcL Hgb 15.2 (13.7-17.5) g/dL Hct 46.2 (40.1-51.0) % POC Hct 50.0 (41-55) MCV 90.8 (80.0-100.0) fL MCH 29.9 (26.0-34.0) pg MCHC 32.9 (31.0-36.0) g/dL RDW 15.0 H (11.5-14.5) % Plt Count 272 (140-440) K/mcL MPV 10.0 (8.8-12.5) fL Immature Gran % (Auto) 0.5 (0.0-0.5) % Neut % (Auto) 91.0 H (38.0-78.0) % Lymph % (Auto) 3.3 L (15.5-49.0) % Logan % (Auto) 4.7 (1.0-12.0) % Eos % (Auto) 0.2 (0.0-7.0) % Baso % (Auto) 0.3 (0.0-2.0) % Lymph # (Auto) 0.64 L (1.50-4.80) K/mcL Logan # (Auto) 0.93 H (0.10-0.90) K/mcL Eos # (Auto) 0.03 (0.00-0.70) K/mcL Baso # (Auto) 0.05 (0.00-0.30) K/mcL Immature Gran # 0.09 H (0.00-0.05) K/mcl Absolute Neutrophils 17.86 H (1.80-8.00) K/mcL VBG Lactic Acid 2.0 (0.5-2.0) mmol/L POC Sodium 138 (133-145) POC Potassium 4.1 (3.3-5.1) POC Chloride 102 (96-108) POC Total CO2 28.0 (22-30) POC BUN 13 (6-20) POC Creatinine 0.9 (0.6-1.2) POC Glucose 141 H (70-105) POC WB Ioniz Calcium 1.18 (1.16-1.32) Discharge Plan Patient/Caregiver Discharge Instructions Pt seen by SAMPLE PATTERNMAKER/PA only: No Clinical Impression: Complete obstruction of small intestine Activity: increase activity as tolerated Patient Disposition: Xfer As Inpt (TS) Condition: Fair Follow up with: Sai Elizabeth DO [Primary Care Provider] - Prescriptions: No Action (DME) Oxygen Qty: 1 0RF Rx Instructions: 2 liters at night. tamsulosin 0.4 mg capsule 0.4 mg PO QDAY Qty: 90 3RF acetaminophen [Tylenol] 325 mg tablet 650 mg PO QDAY PRN (Reason: Pain) calcium carbonate-vitamin D3 500mg (1,250mg) -600 unit tablet 1 tab PO QDAY cyanocobalamin (vitamin B-12) [Vitamin B-12] 2,500 mcg tablet, sublingual 2,500 mcg SUBLINGUAL QDAY lactobac b #[id number] 1 cap PO QDAY multivitamin 1 each PO DAILY cholecalciferol (vitamin D3) 2,000 unit capsule 2,000 unit PO QDAY atorvastatin 20 mg tablet 20 mg PO QDAY omega-3 fatty acids [Fish Oil Concentrate] 1,000 mg capsule 1,000 mg PO QDAY apixaban 5 mg tablet 5 mg PO BID metoprolol succinate 50 mg tablet extended release 24 hr 50 mg PO QDAY magnesium oxide 400 mg magnesium capsule 400 mg PO QDAY oxycodone 5 mg tablet 5 mg PO Q4H PRN (Reason: pain) Qty: 20 0RF
--- NOTE | 2022-10-06 20:59 | Internal Med History&Physical ---
HPI History of Present Illness Patient information: Note initiated : 10/06/22 at 8:48 pm Service Date, if different from initiated Date: [] Patient: Fei Rodrigues a 86 y/o M admitted on for abd pain, recent emergent surgery. Chief Complaint: [nausea vomiting abdominal pain] Chief complaint: nausea vomiting abdominal pain History of present illness: Mr. Rodrigues is a 86 year old M history of sigmoid diverticulitis, complicated by bowel perforations doing colonoscopy, status post ex lap with sigmoid colectomy with end ostomy placement by general surgeon Dr. Mcfarland on August 03, atrial fibrillation status post pacemaker placement, CAD, BPH, presenting with 1 day history of nausea vomiting and intermittent abdominal pain. He is experiencing 5 out of 10, cramping, intermittent abdominal pain around his ostomy site. He is also complained of nausea and vomiting. He denies any change in the quality or quantity of his ostomy output. He denies any subjective fever, but he is complaining of shaking chills. Labs significant for leukocytosis with WBC 19.6. Lactic acid 2.0. CT of the abdomen pelvis showing findings consistent with mechanical small bowel obstructions. Transition point is in the right side of the upper pelvis. Admission request was called for mechanical small bowel obstructions. Constitutional Constitutional: Absent chills, excessive sweating, fatigue, fever(s) or weakness EENT Eyes: Absent blurry vision, change in vision, loss of vision or other visual disturbances Ears: Absent decreased hearing or tinnitus Nose, mouth and throat: Absent abnormal hearing, dry mouth, headache(s), nasal congestion or sore throat Cardiovascular Cardiovascular: Absent chest pain, chest pain at rest, edema, irregular heart rhythm or palpatations Respiratory Respiratory: Absent cough, dyspnea or wheezing Gastrointestinal Gastrointestinal: Present abdominal pain, nausea and vomiting; Absent constip ation or diarrhea Musculoskeletal Musculoskeletal: Absent back pain, deformity, limited range of motion, muscle cramps, muscle weakness or numbness Integumentary Integumentary: Absent lesions, rash or wounds Neurological Neurological: Absent focal weakness, headache(s) or numbness Psychiatric Psychiatric: Absent anxiety, depression or hallucinations PFSH PFSH All Active Problems (Updated 10/06/22 @ 20:28 by Noble Gee DO) Partial obstruction of small intestine (Acute) Dehydration (Acute) Pneumonia (Acute) C. difficile diarrhea (Acute) Complete obstruction of small intestine (Acute) Anemia, normocytic normochromic (Acute) Atrial fibrillation (Acute) Colon perforation (Acute) Nausea (Acute) Tingling sensation (Acute) Hemarthrosis of knee, right (Acute) Knee injury (Acute) Unstable right knee (Acute) Pain and swelling of right knee (Acute) Medicare annual wellness visit, initial (Acute) PAF (paroxysmal atrial fibrillation) (Chronic) Sinus node dysfunction (Chronic) Nonsustained ventricular tachycardia (Chronic) Lower urinary obstructive symptom (Chronic) BPH w urinary obs/LUTS (Chronic) Diarrhea (Chronic) Closed rib fracture (Acute) CAD (coronary artery disease) (Chronic) Ventricular tachycardia (Acute) Syncope, near (Acute) Hearing loss (Chronic) Cataracts, bilateral (Chronic) Vertigo (Chronic) Malignant neoplasm of bronchus and lung, unspecified site (Chronic) Positional vertigo (Acute) Presence of cardiac pacemaker (Chronic) Bilateral hydrocele (Chronic) Malignant neoplasm of lung (Chronic) Bruit of left carotid artery (Chronic) Weight loss (Chronic) Vasovagal syncope (Chronic 12/18/05) Acute sinusitis (Chronic 02/05/14) Schatzki's ring (Chronic) Lymphadenopathy (Chronic) Peripheral vascular disease (Chronic) Osteoporosis (Chronic) Osteoarthritis (Chronic) Onychomycosis (Chronic) Obstructive uropathy (Chronic) Lichen planus (Chronic) Right inguinal pain (Chronic) Accelerated idioventricular rhythm (Chronic) Nocturnal hypoxemia (Chronic) Hypotension (Chronic) Hyperlipidemia (Chronic) Hydrocele (Chronic 11/29/13) Hammer toe (Chronic) Family history of stress (Chronic) Esophagitis (Chronic) Enlarged prostate (Chronic) Dyspnea (Chronic) Dysphagia (Chronic 11/29/13) Dupuytren's contracture (Chronic) Depression (Chronic) Colon adenoma (Chronic) COPD (chronic obstructive pulmonary disease) (Chronic) Chronic bronchitis (Chronic) Bradycardia (Chronic 12/18/05) Low back pain (Chronic 12/24/06) Actinic keratosis (Chronic) Anemia (Chronic) Abdominal aortic aneurysm (AAA) (Chronic) Medical History Abdominal aortic aneurysm (AAA) Aortic endograft Accelerated idioventricular rhythm Actinic keratosis Acute sinusitis (02/05/14) Anemia BPH w urinary obs/LUTS Improved greatly with Flomax 0.4 mg daily. Bradycardia (12/18/05) Sinus of unknown origina Chronic bronchitis Closed fracture of wrist 10/10 right Closed hip fracture left Closed skull fracture (12/18/05) fell and hit head on the toilet, passed out. Colon adenoma 2004 COPD (chronic obstructive pulmonary disease) Depression Diarrhea Dupuytren's contracture Dysphagia (11/29/13) recurrent Dyspnea Enlarged prostate Esophagitis H/O Family history of stress Gastritis Hammer toe Right second and third toes History of blood transfusion 2 units History of ECG (09/30/15) History of echocardiogram 06/03/15 - [facility]. 03/29/19 - [place] [facility]. History of pacemaker (06/20/10) BIOTRONIK MODEL [id number] History of tobacco abuse Stopped Hydrocele (11/29/13) Bilateral large, left greater than right Hyperlipidemia Now on atorvastatin at 20 mg each day Hypotension Beta-aniyah added Lichen planus Low back pain (12/24/06) Lower urinary obstructive symptom Denies history of BPH or urinary obstructive symptoms. States symptoms just started about 6 months ago. Prostate only 2+ today and nontender. Smooth with no nodules. AUA score is 18 today and he has mixed quality of life due to his symptoms. We will check PSA. We will get urine sample with next set of pelvic pain. Lymphadenopathy Perililar. H/O. Malignant neoplasm of bronchus and lung, unspecified site 2011 non-small cell carcinoma Medicare annual wellness visit, initial Nocturnal hypoxemia Overnight pulse ox from August 2020 shows O2 sats <88% for 56 minutes total overnight. Nonsustained ventricular tachycardia Obstructive uropathy Onychomycosis Osteoarthritis Osteoporosis Peripheral vascular disease Asymptomatic, but abnormal MAGALY -0.43 on the right Arterial duplex of bilateral lower extremities ordered Continue statin. Not on aspirin due to being anticoagulated. Right inguinal pain Schatzki's ring Sinus node dysfunction Pacemaker Squamous cell carcinoma lung Vasovagal syncope (12/18/05) and collapse Weight loss Surgical History History of biopsy (09/15/07) right flank lesion History of bronchoscopy (06/01/12) History of colonoscopy (09/06/13) Two polypoid fragments of colonic mucosa with minimal surface hyperplastic change History of esophagogastroduodenoscopy (EGD) (09/07/11) 09/07/11 MICRO: CHRONIC GASTRITIS WITH INTESTINAL METAPLASIA AND FOCAL ACUTE INFLAMMATION. CONSULT: SCHATZKI'S RING, SMALL HIATAL HERNIA, GASTRITIS. 06/30/16 Schatzki's ring dilated and Egan's esophagus. History of exploratory laparotomy 08/03/2022-1. Exploratory laparotomy with resection of sigmoid perforation. 2. End colostomy. 3. Washout and drainage History of lobectomy of lung History of lobectomy of lung 06/11 RIGHT LOWER LOBE followed by chemotherapy History of lung biopsy (05/02/12) History of surgery (06/01/12) Mediastinoscopy History of thoracotomy (06/01/12) RIGHT LOWER LOBE WAS RESECTED THRU A LIMITED RIGHT THORACOTOMY History of tonsillectomy S/P AAA repair (~2012) Status post-operative repair of closed fracture of left hip 2010 hemiarthroplasty Family History Mother , age 76 Diabetes mellitus Heart disease Father , age 61 Heart disease Peptic ulcer Brother CAD (coronary artery disease) Social History household members: spouse housing: house lives independently: Yes marital status: occupational status: retired smoking status: Former smoker alcohol intake frequency: 0-2 drinks per day substance use type: does not use MEDS/ALLERGIES Home Medications and Allergies Home Medications Medication Instructions Recorded Confirmed Type acetaminophen 325 mg tablet 650 mg PO QDAY PRN Pain 06/07/16 09/22/22 History (Tylenol) calcium carbonate 500 mg-vitamin 1 tab PO QDAY 06/07/16 09/22/22 History D3 15 mcg (600 unit) tablet cyanocobalamin (vitamin B-12) 2,500 mcg sublingual QDAY 06/07/16 09/22/22 History 2,500 mcg sublingual tablet (Vitamin B-12) lactobac cmb #[id number] 1 cap PO QDAY 06/07/16 09/22/22 History [Probiotic and Acidophilus] multivitamin 1 each PO DAILY 06/07/16 09/22/22 History cholecalciferol (vitamin D3) 50 2,000 unit PO QDAY 01/16/19 09/22/22 History mcg (2,000 unit) capsule atorvastatin 20 mg tablet 20 mg PO QDAY 04/03/19 09/22/22 History omega-3 fatty acids 1,000 mg 1,000 mg PO QDAY 04/03/19 09/22/22 History capsule (Fish Oil Concentrate) apixaban 5 mg tablet 5 mg PO BID 09/15/20 09/22/22 History Oxygen #1 ea 10/20/20 09/22/22 Rx tamsulosin 0.4 mg capsule 0.4 mg PO QDAY #90 caps 11/09/21 09/22/22 Rx metoprolol succinate 50 mg 50 mg PO QDAY 03/18/22 09/22/22 History tablet,extended release 24 hr magnesium oxide 400 mg PO QDAY 06/09/22 09/22/22 History oxycodone 5 mg tablet 5 mg PO Q4H PRN pain #20 tabs 08/13/22 09/22/22 Rx Allergies Allergy/AdvReac Type Severity Reaction Status Date / Time codeine AdvReac Mild Nausea Verified 09/01/22 13:06 EXAM Constitutional Vitals: Temp Pulse Resp BP Pulse Ox O2 Del Method 35.9 C L 85 20 126/90 98 10/06/22 18:55 10/06/22 18:31 10/06/22 18:31 10/06/22 18:31 10/06/22 18:31 10/06/22 18:31 General appearance: cooperative, no acute distress and thin Head Head exam: Present atraumatic and normocephalic Eye Eye exam: Present EOMI and PERRL ENT ENT exam: Present mucous membranes moist, normal exam and normal external ear exam Neck Neck exam: Present normal inspection; Absent lymphadenopathy, tenderness or thy romegaly Respiratory Respiratory exam: Absent accessory muscle use, respiratory distress or wheezes Cardiovascular Cardiovascular exam: Present normal rate and rhythm; Absent JVD Additional comments: Pacemaker in place GI/Abdominal GI/Abdominal exam: Present normal bowel sounds and soft; Absent organomegaly or tenderness Additional comments: end ostomy bag in LLQ abdomen Well healed ventral abdominal surgical scar Rectal Rectal exam: Present deferred Extremities Exam Extremities exam: Present full ROM, normal capillary refill and normal inspection; Absent tenderness Neurological Exam Neurological exam: Present alert, CN II-XII intact and oriented X3; Absent motor sensory deficit Psychiatric Psychiatric exam: Present normal affect and normal mood; Absent anxious or depressed Skin Skin exam: Present dry and intact DATA Data Completed and Pending Labs: Labs from last 24 hours 10/06/22 10/06/22 10/06/22 19:12 19:09 19:09 WBC 19.6 H RBC 5.09 Hgb 15.2 Hct 46.2 POC Hct 50.0 MCV 90.8 MCH 29.9 MCHC 32.9 RDW 15.0 H Plt Count 272 MPV 10.0 Immature Gran % (Auto) 0.5 Neut % (Auto) 91.0 H Lymph % (Auto) 3.3 L Dare % (Auto) 4.7 Eos % (Auto) 0.2 Baso % (Auto) 0.3 Lymph # (Auto) 0.64 L Dare # (Auto) 0.93 H Eos # (Auto) 0.03 Baso # (Auto) 0.05 Immature Gran # 0.09 H Absolute Neutrophils 17.86 H VBG Lactic Acid 2.0 POC Sodium 138 POC Potassium 4.1 POC Chloride 102 POC Total CO2 28.0 POC BUN 13 POC Creatinine 0.9 POC Glucose 141 H POC WB Ioniz Calcium 1.18 A/P Assessment and plan (1) Partial obstruction of small intestine: Status: Acute (2) Complete obstruction of small intestine: Status: Acute (3) Atrial fibrillation: Status: Acute (4) CAD (coronary artery disease): Status: Chronic Comment: Mild to moderate nonobstructive CAD on left heart cath in [place] Qualifiers: Coronary Disease-Associated Artery/Lesion type: [place] artery [place] vs. transplanted heart: [place] heart Associated angina: without angina Qualified Code(s): I25.10 - Atherosclerotic heart disease of [place] coronary artery without angina pectoris (5) BPH w urinary obs/LUTS: Status: Chronic Comment: Improved greatly with Flomax 0.4 mg daily. Narrative A/P Narrative: Assessment and Plans: 1. Mechanical small bowel obstruction: Inpatient med surg Consulting general surgeon Dr. Cohen cross-covering for Dr. Mcfarland, recs. apreciated NG tube insertion with low intermittent suction NPO with IV fluid-->D5LR@100cc/hr Zofran Phenergan Morphine IV Consider serial abdominal imaging +/-small bowel follow through Blood culture, covering with Zosyn due to elevated white count No loose stool to think recurrence of c. diff colitis, will continue to monitor 2. Atrial fibrillation, pacemaker in place: Holding Eliquis due to NPO with NG tube, switch to Heparin for now 3. h/o CAD: Continue to monitor 4. Benign prostatic hypertrophy: Holding Flomax due to NPO with NG tube GI ppx: not currently indicated DVT ppx: Heparin Code status: Full Prognosis: guarded Disposition: inpatient med surg; PT Time Spent With Patient Time: Total time spent is greater than 50% in coordination of care (as documented) at patient's floor/unit and/or counseling patient: Total time spent with greater than 50% in coordination of care (as documented) at patient's floor/unit and/or counseling patient:: 50 - 70 minutes
[2022-10-06] MEDS ORDERED: morphine 4 MG/ML VIAL IV PRN (21:33)
[2022-10-06] MEDS ORDERED: PROMETHAZINE 25 MG/ML VIAL IV PRN (21:33)
[2022-10-06] MEDS ORDERED: ACETAMINOPHEN 325 MG TABLET PO PRN (21:33)
[2022-10-06] MEDS ORDERED: ONDANSETRON 4 MG/2 ML VIAL IV PRN (21:33)
[2022-10-06] MEDS ORDERED: IPRATROPIUM/ALBUTEROL 3 ML AMPUL.NEB NEB PRN (21:33)
[2022-10-06] MEDS: DEXTROSE 5%-LR 1,000 ML IV SCH (21:45)
[2022-10-06] MEDS: 0.9 % SODIUM CHLORIDE 10 ML SYRINGE IV SCH (21:47)
[2022-10-06] MEDS: HEPARIN 5,000 UNIT/ML VIAL SQ SCH (23:04)
[2022-10-07] MEDS ORDERED: PIPERACILLIN SODIUM/TAZOBACTAM 3.375 GM in DEXTROSE 5% IN WATER 50 ML IV SCH (05:00)
--- NOTE | 2022-10-07 05:10 | XRay Report ---
INDICATION: GI tube placement TECHNIQUE: Supine abdomen. COMPARISON: Previous CT scan dated 10/06/2022 FINDINGS:Esophagogastric tube has been placed. Tip is in the left upper quadrant consistent with intragastric location Small bowel is predominantly fluid-filled. There is dilated gas-filled small bowel in the left upper quadrant. Aortobiiliac stent graft is present. IMPRESSION: Esophagogastric tube in the stomach Interpreted and Authenticated by: Sai Celeste 10/07/22
[2022-10-07] MEDS: 0.9 % SODIUM CHLORIDE 10 ML SYRINGE IV SCH ×3 (05:30→22:02)
[2022-10-07 07:25] LABS: Basophils # (Auto) 0.04 K/mcL (0.00-0.30); Basophils % (Auto) 0.5 % (0.0-2.0); Eosinophils % (Auto) 1.2 % (0.0-7.0); Hematocrit 38.5 % (40.1-51.0); Hemoglobin 12.5 g/dL (13.7-17.5); Lymphocytes # (Auto) 0.77 K/mcL (1.50-4.80); Lymphocytes % (Auto) 9.6 % (15.5-49.0); Mean Cell Volume 92.3 fL (80.0-100.0); Mean Corpuscular HGB Conc 32.5 g/dL (31.0-36.0); Mean Platelet Volume 10.7 fL (8.8-12.5); Monocytes # (Auto) 0.65 K/mcL (0.10-0.90); Monocytes % (Auto) 8.1 % (1.0-12.0); Neutrophils % (Auto) 80.1 % (38.0-78.0); Platelet Count 240 K/mcL (140-440); RBC 4.17 M/mcL (4.63-6.08); Red Cell Distribution Width 15.1 % (11.5-14.5)
[2022-10-07 07:40] LABS: ALT/SGPT 11 U/L (<40); AST/SGOT 11 U/L (<40); Albumin 3.1 gm/dL (3.2-5.2); Albumin/Globulin Ratio 1.3 (1.0-2.3); Alkaline Phosphatase 96 U/L (39-117); Bilirubin,Total 0.4 mg/dL (0.1-1.0); Blood Urea Nitrogen 11 mg/dL (8-23); Calcium 8.9 mg/dL (8.6-10.4); Carbon Dioxide 33 mmol/L (22-30); Chloride 103 mmol/L (96-108); Globulin 2.4 gm/dL (2.2-3.7); Glomerular Filtration Rate 77; Glucose 121 mg/dL (70-105)
[2022-10-07] MEDS: DEXTROSE 5%-LR 1,000 ML IV SCH ×2 (08:21→19:10)
--- NOTE | 2022-10-07 09:52 | XRay Report ---
INDICATION: FOLLOW -UP OF SMALL BOWEL OBSTRUCTION TECHNIQUE: Supine and upright abdomen. COMPARISON: Previous CT scan dated 10/06/2022 FINDINGS:Distended gas-filled small bowel is again identified. Small bowel measures approximately 5 cm maximally. There are air-fluid levels. There is no pneumoperitoneum. There is very little colonic gas or stool. Appearance remains consistent with mechanical small bowel obstruction. There is no biliary or portal venous gas. There is no pneumatosis. There is an esophagogastric tube in the gastric fundus. There is an aortobiiliac stent graft. IMPRESSION: Findings remain consistent with mechanical small bowel obstruction as above Interpreted and Authenticated by: Sai Celeste 10/07/22
[2022-10-07] MEDS: HEPARIN 5,000 UNIT/ML VIAL SQ SCH ×2 (10:55→22:00)
--- NOTE | 2022-10-07 11:27 | Internal Med Progress Note ---
SUBJECTIVE Subjective Patient information: Note initiated : 10/07/22 at 11:22 am Service Date, if different from initiated Date: [] Patient: Fei Rodrigues a 86 y/o M admitted on 10/06/22 for abd pain, recent emergent surgery. Chief Complaint: [] Interval history: Mr. Rodrigues is a 86 year old M history of sigmoid diverticulitis, complicated by bowel perforations doing colonoscopy, status post ex lap with sigmoid colectomy with end ostomy placement by general surgeon Dr. Mcfarland on August 03, atrial fibrillation status post pacemaker placement, CAD, BPH, presenting with 1 day history of nausea vomiting and intermittent abdominal pain. He is experiencing 5 out of 10, cramping, intermittent abdominal pain around his ostomy site. He is also complained of nausea and vomiting. He denies any change in the quality or quantity of his ostomy output. He denies any subjective fever, but he is complaining of shaking chills. Labs significant for leukocytosis with WBC 19.6. Lactic acid 2.0. CT of the abdomen pelvis showing findings consistent with mechanical small bowel obstructions. Transition point is in the right side of the upper pelvis. Admission request was called for mechanical small bowel obstructions. 10/07: S/p NG tube insertion with low intermittent suction, approximately 2 L output since. No bowel movement through the and ostomy bag. WBC down-trended from 19.6 to 8.0. Patient denies any abdominal pain, nausea, or vomiting at the moment. Repeat abdominal x-ray this morning showing the same mechanical small bowel obstructions with no interval progressions. We will keep the patient n.p.o. status with IV fluid infusions. Keep the NG tube in place with low intermittent suction's. Continue narcotics and antiemetics for symptoms relief. d/c Zosyn. Rest of the management as per general surgeon Dr. Mcfarland. Constitutional Vitals: Vital Signs Temp Pulse Resp BP Pulse Ox O2 Del Method 36.4 C 61 16 102/72 96 10/07/22 08:00 10/07/22 08:00 10/07/22 08:00 10/07/22 08:00 10/07/22 08:00 10/07/22 08:00 Period Temp Pulse Resp BP Sys/[place] Pulse Ox O2 Del Method O2 Flow Rate Last 24 Hr 35.9 C-36.4 C 61-104 11- 76-126/55-96 92-100 Room Air-Room Air Intake and Output 10/06/22 10/07/22 10/07/22 19:59 03:59 11:59 Intake Total 1050 1050 Output Total 875 650 Balance 175 400 Weight 53.07 kg 55.928 kg Intake & Output: Intake & Output 10/06/22 10/07/22 10/07/22 19:59 03:59 11:59 Intake Total 1050 1050 Output Total 875 650 Balance 175 400 Weight 53.07 kg 55.928 kg Intake: IV 1050 1050 Sodium Chloride 0.9% 1,000 ml @ 1000 Wide Open IV B[facility] ONE Rx#: [id number] Dextrose 5%-Lactated Ringers 1, 1000 000 ml @ 100 mls/hr IV .Q10H [facility] Rx#:[id number] Zosyn 3.375 gm In Dextrose 5% 50 50 in Water 50 ml @ 100 mls/hr IV Q6H [facility] Rx#:[id number] Oral 0 Output: Gastric Drainage 875 450 Right Nare NG/OG 875 450 Void Amount 200 Stool 0 Other: Urine Appearance Clear Urine Color Dark Yellow Head Head exam: Present atraumatic and normal inspection Eye Eye exam: Present normal appearance ENT ENT exam: Present mucous membranes moist, normal exam and normal external ear exam Neck Neck exam: Present normal inspection Respiratory Respiratory exam: Present normal respiratory exam Cardiovascular Cardiovascular exam: Present irregular rhythm Additional comments: Pacemaker in place GI/Abdominal GI/Abdominal exam: Present diminished bowel sounds Additional comments: Well healed ventral abdominal surgical scar End ostomy bag in place without stool. Back Exam Back exam: Present normal inspection Neurological Exam Neurological exam: Present alert and oriented X3 Skin Skin exam: Present intact and warm OBJ DATA Labs CBC & Chem 7: 10/07/22 05:19 10/07/22 05:19 Labs: Abnormal Lab Results 10/07/22 10/07/22 10/06/22 05:19 05:19 22:19 WBC RBC 4.17 L Hgb 12.5 L Hct 38.5 L RDW 15.1 H Neut % (Auto) 80.1 H Lymph % (Auto) 9.6 L Lymph # (Auto) 0.77 L Rich # (Auto) Immature Gran # Absolute Neutrophils VBG Lactic Acid 2.4 H Carbon Dioxide 33 H Anion Gap 6.0 L Glucose 121 H POC Glucose Total Protein 5.5 L Albumin 3.1 L 10/06/22 10/06/22 19:12 19:09 WBC 19.6 H RBC Hgb Hct RDW 15.0 H Neut % (Auto) 91.0 H Lymph % (Auto) 3.3 L Lymph # (Auto) 0.64 L Rich # (Auto) 0.93 H Immature Gran # 0.09 H Absolute Neutrophils 17.86 H VBG Lactic Acid Carbon Dioxide Anion Gap Glucose POC Glucose 141 H Total Protein Albumin Meds: Medications Acetaminophen (Acetaminophen 325 Mg Tablet) 650 mg PO Q6HP PRN; Protocol PRN Reason: Per Pain Protocol/Fever > 101 Albuterol/Ipratropium (Ipratropium/Albuterol 3 Ml Ampul.Neb) 3 ml NEB Q4HRT PRN PRN Reason: Wheezing Heparin Sodium (Porcine) (Heparin 5,000 Unit/Ml Vial) 5,000 unit SQ Q12 [facility] Last Admin: 10/07/22 10:55 Dose: 5,000 unit Dextrose/Lactated Ringer's (Dextrose 5%-Lactated Ringers) 1,000 mls @ 100 mls/hr IV .Q10H [facility] Last Admin: 10/07/22 08:21 Dose: 100 mls/hr Piperacillin Sod/Tazobactam (Sod 3.375 gm/ Dextrose) 50 mls @ 100 mls/hr IV Q6H [facility]; Protocol Last Infusion: 10/07/22 09:19 Dose: Infused Morphine Sulfate (Morphine 4 Mg/Ml Vial) 4 mg IV Q4HP PRN; Protocol PRN Reason: Per Pain Protocol Ondansetron HCl (Ondansetron 4 Mg/2 Ml Vial) 4 mg IV Q6HP PRN PRN Reason: Nausea And Vomiting Promethazine HCl (Promethazine 25 Mg/Ml Vial) 12.5 mg IV Q6HP PRN PRN Reason: Nausea And Vomiting Sodium Chloride (0.9 % Sodium Chloride 10 Ml Syringe) 10 ml IV Q8 [facility] Last Admin: 10/07/22 05:30 Dose: Not Given A/P Assessment and plan (1) Partial obstruction of small intestine: Status: Acute (2) Complete obstruction of small intestine: Status: Acute (3) Atrial fibrillation: Status: Acute (4) CAD (coronary artery disease): Status: Chronic Comment: Mild to moderate nonobstructive CAD on left heart cath in [place] Qualifiers: Coronary Disease-Associated Artery/Lesion type: [place] artery [place] vs. transplanted heart: [place] heart Associated angina: without angina Qualif ied Code(s): I25.10 - Atherosclerotic heart disease of [place] coronary artery without angina pectoris (5) BPH w urinary obs/LUTS: Status: Chronic Comment: Improved greatly with Flomax 0.4 mg daily. (6) Anemia: Status: Chronic Narrative A/P Narrative: Assessment and Plans: 1. Mechanical small bowel obstruction: Inpatient med surg Consulting general surgeon Dr. Mcfarland, recs. appreciated NG tube insertion with low intermittent suction NPO with IV fluid-->D5LR@100cc/hr Zofran Phenergan Morphine IV Continue serial abdominal imaging +/-small bowel follow through Blood culture no growth to date, WBC down trended from 19.6 to 8.0. Will d/c Zosyn. No loose stool to think recurrence of c. diff colitis, will continue to monitor 2. Atrial fibrillation, pacemaker in place: Holding Eliquis due to NPO with NG tube, switch to Heparin for now 3. h/o CAD: Continue to monitor 4. Benign prostatic hypertrophy: Holding Flomax due to NPO with NG tube 5. Anemia, normocytic normochromic: DDx: hemodilution from IV fluid infusion Holding Eliquis due to NPO with NG tube, switch to Heparin for now Protonix IV GI ppx: Protonix IV DVT ppx: Heparin Code status: DNR Prognosis: guarded Disposition: inpatient med surg; PT Time Spent With Patient Time: Total time spent is greater than 50% in coordination of care (as documented) at patient's floor/unit and/or counseling patient: Total time spent with greater than 50% in coordination of care (as documented) at patient's floor/unit and/or counseling patient:: 25 - 35 minutes
--- NOTE | 2022-10-07 12:07 | General Surgery Consult Note ---
HPI Date of Consult Consult Date: 10/06/22 Requesting physician: Wesley Cohen Primary Care Provider: Sai Elizabeth DO Consult Narrative Patient Information: Note initiated : 10/07/22 at 11:57 am Service Date, if different from initiated Date: [] Patient: Fei Rodrigues 86 y/o M admitted on 10/06/22 for abd pain, recent emergent surgery. Chief Complaint: [] Chief complaint: Abdominal pain, nausea and vomiting Reason for consult: Small bowel obstruction cc:: CC: Ernesto Tony MD 86-year-old male with a history of inadvertent bowel perforation while undergoing colonoscopy on 03 August 2022. He was evaluated by Dr. Mcfarland and underwent segmental sigmoid resection with end colostomy on that date. He had a somewhat prolonged course but had good return of intestinal function. He was sent [facility] and represented to our emergency room in August with partial obstruction and presumed C. difficile colitis. He was having profuse diarrhea and had C. difficile toxin was positive. He was treated at [facility] because we did not have an acute care bed. He was finally transferred to the [place] [facility] and had been doing well un til he developed acute abdominal pain with nausea and vomiting. He noted decreased output through his stoma. As his pain became progressively worse he was finally seen in our emergency room where abdominal exam revealed distended abdomen and CT showed dilated stomach and small bowel down to the distal ileum. He had a white count of 19,000 but was afebrile. He was hydrated and started on nasogastric suction. Plan is to treat him nonoperatively with small bowel follow-through on 07 October. Patient has significant prolapse of his ostomy and if he has operative therapy this should be addressed. Review of Systems All systems: reviewed and no additional remarkable complaints except as stated Constitutional Constitutional: Present anorexia, fatigue, lethargy, weakness and weight loss Cardiovascular Cardiovascular: Present dyspnea on exertion; Absent chest pain with activity, palpatations or pedal edema Respiratory Respiratory: Absent dyspnea on exertion or wheezing Gastrointestinal Gastrointestinal: Present abdominal pain, bloating, heartburn, nausea and vomiting Musculoskeletal Musculoskeletal: Present arthralgias, muscle cramps, muscle weakness and myalgias Integumentary Integumentary: Absent pruritus or swelling Neurological Neurological: Present abnormal hearing, dizziness and weakness; Absent convulsions or numbness Psychiatric Psychiatric: Absent depression Hematologic/Lymphatic Hematologic/Lymphatic: Absent easy bleeding, easy bruising or lymphadenopathy Allergic/Immunologic Allergic/Immunologic: Absent tongue swelling, throat swelling, uticaria, wheezing or lip swelling PFSH PFSH All Active Problems Partial obstruction of small intestine (Acute) Dehydration (Acute) Pneumonia (Acute) C. difficile diarrhea (Acute) Complete obstruction of small intestine (Acute) Anemia, normocytic normochromic (Acute) Atrial fibrillation (Acute) Colon perforation (Acute) Nausea (Acute) Tingling sensation (Acute) Hemarthrosis of knee, right (Acute) Knee injury (Acute) Unstable right knee (Acute) Pain and swelling of right knee (Acute) Medicare annual wellness visit, initial (Acute) PAF (paroxysmal atrial fibrillation) (Chronic) Sinus node dysfunction (Chronic) Nonsustained ventricular tachycardia (Chronic) Lower urinary obstructive symptom (Chronic) BPH w urinary obs/LUTS (Chronic) Diarrhea (Chronic) Closed rib fracture (Acute) CAD (coronary artery disease) (Chronic) Ventricular tachycardia (Acute) Syncope, near (Acute) Hearing loss (Chronic) Cataracts, bilateral (Chronic) Vertigo (Chronic) Malignant neoplasm of bronchus and lung, unspecified site (Chronic) Positional vertigo (Acute) Presence of cardiac pacemaker (Chronic) Bilateral hydrocele (Chronic) Malignant neoplasm of lung (Chronic) Bruit of left carotid artery (Chronic) Weight loss (Chronic) Vasovagal syncope (Chronic 12/18/05) Acute sinusitis (Chronic 02/05/14) Schatzki's ring (Chronic) Lymphadenopathy (Chronic) Peripheral vascular disease (Chronic) Osteoporosis (Chronic) Osteoarthritis (Chronic) Onychomycosis (Chronic) Obstructive uropathy (Chronic) Lichen planus (Chronic) Right inguinal pain (Chronic) Accelerated idioventricular rhythm (Chronic) Nocturnal hypoxemia (Chronic) Hypotension (Chronic) Hyperlipidemia (Chronic) Hydrocele (Chronic 11/29/13) Hammer toe (Chronic) Family history of stress (Chronic) Esophagitis (Chronic) Enlarged prostate (Chronic) Dyspnea (Chronic) Dysphagia (Chronic 11/29/13) Dupuytren's contracture (Chronic) Depression (Chronic) Colon adenoma (Chronic) COPD (chronic obstructive pulmonary disease) (Chronic) Chronic bronchitis (Chronic) Bradycardia (Chronic 12/18/05) Low back pain (Chronic 12/24/06) Actinic keratosis (Chronic) Anemia (Chronic) Abdominal aortic aneurysm (AAA) (Chronic) Medical History Abdominal aortic aneurysm (AAA) Aortic endograft Accelerated idioventricular rhythm Actinic keratosis Acute sinusitis (02/05/14) Anemia BPH w urinary obs/LUTS Improved greatly with Flomax 0.4 mg daily. Bradycardia (12/18/05) Sinus of unknown origina Chronic bronchitis Closed fracture of wrist 10/10 right Closed hip fracture left Closed skull fracture (12/18/05) fell and hit head on the toilet, passed out. Colon adenoma 2004 COPD (chronic obstructive pulmonary disease) Depression Diarrhea Dupuytren's contracture Dysphagia (11/29/13) recurrent Dyspnea Enlarged prostate Esophagitis H/O Family history of stress Gastritis Hammer toe Right second and third toes History of blood transfusion 2 units History of ECG (09/30/15) History of echocardiogram 06/03/15 - [facility]. 03/29/19 - [place] [facility]. History of pacemaker (06/20/10) BIOTRON[employer] MODEL [id number] History of tobacco abuse Stopped Hydrocele (11/29/13) Bilateral large, left greater than right Hyperlipidemia Now on atorvastatin at 20 mg each day Hypotension Beta-aniyah added Lichen planus Low back pain (12/24/06) Lower urinary obstructive symptom Denies history of BPH or urinary obstructive symptoms. States symptoms just started about 6 months ago. Prostate only 2+ today and nontender. Smooth with no nodules. AUA score is 18 today and he has mixed quality of life due to his symptoms. We will check PSA. We will get urine sample with next set of pelvic pain. Lymphadenopathy Perililar. H/O. Malignant neoplasm of bronchus and lung, unspecified site 2011 non-small cell carcinoma Medicare annual wellness visit, initial Nocturnal hypoxemia Overnight pulse ox from August 2020 shows O2 sats <88% for 56 minutes total overnight. Nonsustained ventricular tachycardia Obstructive uropathy Onychomycosis Osteoarthritis Osteoporosis Peripheral vascular disease Asymptomatic, but abnormal MAGALY -0.43 on the right Arterial duplex of bilateral lower extremities ordered Continue statin. Not on aspirin due to being anticoagulated. Right inguinal pain Schatzki's ring Sinus node dysfunction Pacemaker Squamous cell carcinoma lung Vasovagal syncope (12/18/05) and collapse Weight loss Surgical History History of biopsy (09/15/07) right flank lesion History of bronchoscopy (06/01/12) History of colonoscopy (09/06/13) Two polypoid fragments of colonic mucosa with minimal surface hyperplastic change History of esophagogastroduodenoscopy (EGD) (09/07/11) 09/07/11 MICRO: CHRONIC GASTRITIS WITH INTESTINAL METAPLASIA AND FOCAL ACUTE INFLAMMATION. CONSULT: SCHATZKI'S RING, SMALL HIATAL HERNIA, GASTRITIS. 06/30/16 Schatzki's ring dilated and Egan's esophagus. History of exploratory laparotomy 08/03/2022-1. Exploratory laparotomy with resection of sigmoid perforation. 2. End colostomy. 3. Washout and drainage History of lobectomy of lung History of lobectomy of lung 06/11 RIGHT LOWER LOBE followed by chemotherapy History of lung biopsy (05/02/12) History of surgery (06/01/12) Mediastinoscopy History of thoracotomy (06/01/12) RIGHT LOWER LOBE WAS RESECTED THRU A LIMITED RIGHT THORACOTOMY History of tonsillectomy S/P AAA repair (~2012) Status post-operative repair of closed fracture of left hip 2010 hemiarthroplasty Family History Mother , age 76 Diabetes mellitus Heart disease Father , age 61 Heart disease Peptic ulcer Brother CAD (coronary artery disease) Social History household members: spouse housing: house lives independently: Yes marital status: occupational status: retired smoking status: Former smoker alcohol intake frequency: 0-2 drinks per day substance use type: does not use MEDS/ALLERGIES Home Medications and Allergies Home Medications Medication Instructions Recorded Confirmed Type acetaminophen 325 mg tablet 650 mg PO QDAY PRN Pain 06/07/16 09/22/22 History (Tylenol) calcium carbonate 500 mg-vitamin 1 tab PO QDAY 06/07/16 09/22/22 History D3 15 mcg (600 unit) tablet cyanocobalamin (vitamin B-12) 2,500 mcg sublingual QDAY 06/07/16 09/22/22 History 2,500 mcg sublingual tablet (Vitamin B-12) lactobac cmb #[id number] 1 cap PO QDAY 06/07/16 09/22/22 History [Probiotic and Acidophilus] multivitamin 1 each PO DAILY 06/07/16 09/22/22 History cholecalciferol (vitamin D3) 50 2,000 unit PO QDAY 01/16/19 09/22/22 History mcg (2,000 unit) capsule atorvastatin 20 mg tablet 20 mg PO QDAY 04/03/19 09/22/22 History omega-3 fatty acids 1,000 mg 1,000 mg PO QDAY 04/03/19 09/22/22 History capsule (Fish Oil Concentrate) apixaban 5 mg tablet 5 mg PO BID 09/15/20 09/22/22 History Oxygen #1 ea 10/20/20 09/22/22 Rx tamsulosin 0.4 mg capsule 0.4 mg PO QDAY #90 caps 11/09/21 09/22/22 Rx metoprolol succinate 50 mg 50 mg PO QDAY 03/18/22 09/22/22 History tablet,extended release 24 hr magnesium oxide 400 mg PO QDAY 06/09/22 09/22/22 History oxycodone 5 mg tablet 5 mg PO Q4H PRN pain #20 tabs 08/13/22 09/22/22 Rx Allergies Allergy/AdvReac Type Severity Reaction Status Date / Time codeine AdvReac Mild Nausea Verified 09/01/22 13:06 Physical Examination Vital Signs Vital signs: Temp Pulse Resp BP Pulse Ox O2 Del Method 97.3 F 83 18 97/74 96 10/07/22 11:43 10/07/22 11:43 10/07/22 11:43 10/07/22 11:43 10/07/22 11:43 10/07/22 11:43 General physical appearance General physical exam: no distress, no pain, cachectic and chronically ill Eyes Eye exam: PERRL, normal ocular movement and pale ENT ENT exam: normal mucosa, decreased hearing and other (Edentulous) Head Head exam IM: Present atraumatic, normal inspection and normocephalic Neck Neck exam: no masses, no bruits, trachea midline, no lymphadenopathy and no venous distension Cardiovascular Cardiovascular exam IM: Present normal rate and rhythm, RRR, +S1 and +S2; Absent JVD Respiratory Respiratory exam: normal expansion, normal respiratory effort and clear to auscultation Abdomen Abdomen: Present soft, non tender and distended; Absent organomegaly, masses or guarding Integumentary Integumentary: Present no rash, no growths and no abnormal pigmentation Neurologic Neurologic: Present normal coordination and normal sensation Musculoskeletal Musculoskeletal: Present normal posture Psychiatric Psychiatric: Present oriented to time, oriented to person, oriented to place, speech is normal and memory intact Results Labs Result diagrams: 10/07/22 05:19 10/07/22 05:19 Labs: Abnormal lab results 10/06/22 10/06/22 10/06/22 Range/Units 19:09 19:12 22:19 WBC 19.6 H (4.5-11.0) K/mcL RBC (4.63-6.08) M/mcL Hgb (13.7-17.5) g/dL Hct (40.1-51.0) % RDW 15.0 H (11.5-14.5) % Neut % (Auto) 91.0 H (38.0-78.0) % Lymph % (Auto) 3.3 L (15.5-49.0) % Lymph # (Auto) 0.64 L (1.50-4.80) K/mcL [place] # (Auto) 0.93 H (0.10-0.90) K/mcL Immature Gran # 0.09 H (0.00-0.05) K/mcl Absolute Neutrophils 17.86 H (1.80-8.00) K/mcL VBG Lactic Acid 2.4 H (0.5-2.0) mmol/L Carbon Dioxide (22-30) mmol/L Anion Gap (8.0-16.0) Glucose (70-105) mg/dL POC Glucose 141 H (70-105) Total Protein (5.9-8.4) gm/dL Albumin (3.2-5.2) gm/dL 10/07/22 10/07/22 Range/Units 05:19 05:19 WBC (4.5-11.0) K/mcL RBC 4.17 L (4.63-6.08) M/mcL Hgb 12.5 L (13.7-17.5) g/dL Hct 38.5 L (40.1-51.0) % RDW 15.1 H (11.5-14.5) % Neut % (Auto) 80.1 H (38.0-78.0) % Lymph % (Auto) 9.6 L (15.5-49.0) % Lymph # (Auto) 0.77 L (1.50-4.80) K/mcL [place] # (Auto) (0.10-0.90) K/mcL Immature Gran # (0.00-0.05) K/mcl Absolute Neutrophils (1.80-8.00) K/mcL VBG Lactic Acid (0.5-2.0) mmol/L Carbon Dioxide 33 H (22-30) mmol/L Anion Gap 6.0 L (8.0-16.0) Glucose 121 H (70-105) mg/dL POC Glucose (70-105) Total Protein 5.5 L (5.9-8.4) gm/dL Albumin 3.1 L (3.2-5.2) gm/dL Diabetes panel 10/07/22 Range/Units 05:19 Sodium 142 (133-145) mmol/L Potassium 4.1 (3.3-5.1) mmol/L Chloride 103 (96-108) mmol/L Carbon Dioxide 33 H (22-30) mmol/L BUN 11 (8-23) mg/dL Creatinine 0.9 (0.7-1.2) mg/dL Glucose 121 H (70-105) mg/dL Calcium 8.9 (8.6-10.4) mg/dL AST 11 (<40) U/L ALT 11 (<40) U/L Alkaline Phosphatase 96 (39-117) U/L Total Protein 5.5 L (5.9-8.4) gm/dL Albumin 3.1 L (3.2-5.2) gm/dL Calcium panel 10/07/22 Range/Units 05:19 Calcium 8.9 (8.6-10.4) mg/dL Albumin 3.1 L (3.2-5.2) gm/dL Pituitary panel 10/07/22 Range/Units 05:19 Sodium 142 (133-145) mmol/L Potassium 4.1 (3.3-5.1) mmol/L Chloride 103 (96-108) mmol/L Carbon Dioxide 33 H (22-30) mmol/L BUN 11 (8-23) mg/dL Creatinine 0.9 (0.7-1.2) mg/dL Glucose 121 H (70-105) mg/dL Calcium 8.9 (8.6-10.4) mg/dL Adrenal panel 10/07/22 Range/Units 05:19 Sodium 142 (133-145) mmol/L Potassium 4.1 (3.3-5.1) mmol/L Chloride 103 (96-108) mmol/L Carbon Dioxide 33 H (22-30) mmol/L BUN 11 (8-23) mg/dL Creatinine 0.9 (0.7-1.2) mg/dL Glucose 121 H (70-105) mg/dL Calcium 8.9 (8.6-10.4) mg/dL Total Bilirubin 0.4 (0.1-1.0) mg/dL AST 11 (<40) U/L ALT 11 (<40) U/L Alkaline Phosphatase 96 (39-117) U/L Total Protein 5.5 L (5.9-8.4) gm/dL Albumin 3.1 L (3.2-5.2) gm/dL All other labs normal. A/P Assessment and plan (1) Complete obstruction of small intestine: Status: Acute (2) Dehydration: Status: Acute (3) Anemia, normocytic normochromic: Status: Acute (4) Atrial fibrillation: Status: Acute (5) PAF (paroxysmal atrial fibrillation): Status: Chronic (6) CAD (coronary artery disease): Status: Chronic Comment: Mild to moderate nonobstructive CAD on left heart cath in [place] Qualifiers: Coronary Disease-Associated Artery/Lesion type: [place] artery [place] vs. transplanted heart: [place] heart Associated angina: without angina Qualified Code(s): I25.10 - Atherosclerotic heart disease of [place] coronary artery without angina pectoris Plan Nasogastric tube to moderate intermittent suction IV hydration Zosyn 3.375 g IV every 6 hours Hold apixaban Follow-up x-ray in the morning Small bowel follow-through in the morning Sepsis Sepsis Identified: No Time Spent With Patient Time: Total time spent is greater than 50% in coordination of care (as documented) at patient's floor/unit and/or counseling patient:
--- NOTE | 2022-10-07 12:16 | General Surgery Progress Note ---
SUBJECTIVE Subjective Patient information: Note initiated : 10/07/22 at 12:12 pm Service Date, if different from initiated Date: [] Patient: Fei Rodrigues 86 y/o M admitted on 10/06/22 for abd pain, recent emergent surgery. Chief Complaint: [] Interval history: Patient states that he feels better. He had 2000 cc output through his nasogastric tube. Abdominal distention is improved. He has active bowel sounds. He still has prolapse of his stoma. Abdominal x-rays shows decreased gastric distention but with persistent small bowel distention and no gas in his colon. He denies having any pain at this time. Constitutional Vitals: Vital Signs Temp Pulse Resp BP Pulse Ox O2 Del Method 97.3 F 83 18 97/74 96 10/07/22 11:43 10/07/22 11:43 10/07/22 11:43 10/07/22 11:43 10/07/22 11:43 10/07/22 11:43 Period Temp Pulse Resp BP Sys/[place] Pulse Ox O2 Del Method O2 Flow Rate Last 24 Hr 96.7 F-97.5 F 61-104 11-21 76-126/55-96 92-100 Room Air-Room Air Intake and Output 10/07/22 10/07/22 10/07/22 03:59 11:59 19:59 Intake Total 1050 1050 Output Total 875 650 Balance 175 400 Weight 123 lb 4.8 oz Intake & Output: Intake & Output 10/07/22 10/07/22 10/07/22 03:59 11:59 19:59 Intake Total 1050 1050 Output Total 875 650 Balance 175 400 Weight 123 lb 4.8 oz Intake: IV 1050 1050 Sodium Chloride 0.9% 1,000 ml @ 1000 Wide Open IV [facility] Rx#: [id number] Dextrose 5%-Lactated Ringers 1, 1000 000 ml @ 100 mls/hr IV .Q10H [facility] Rx#:[id number] Zosyn 3.375 gm In Dextrose 5% 50 50 in Water 50 ml @ 100 mls/hr IV Q6H [facility] Rx#:[id number] Oral 0 Output: Gastric Drainage 875 450 Right Nare NG/OG 875 450 Void Amount 200 Stool 0 Other: Urine Appearance Clear Urine Color Dark Yellow Neck Neck exam: Present full ROM and normal inspection Respiratory Respiratory exam: Present normal respiratory exam and CTAB Cardiovascular Cardiovascular exam: Present normal rate and rhythm, RRR, +S1 and +S2; Absent JVD GI/Abdominal GI/Abdominal exam: Present normal bowel sounds and soft; Absent distended or hernia Additional comments: Prolapse of stoma left lower quadrant Extremities Exam Extremities exam: Present full ROM, normal inspection and neurovascular intact Neurological Exam Neurological exam: Present motor sensory deficit, normal gait, oriented X3 and reflexes normal Psychiatric Psychiatric exam: Present normal affect and normal mood A/P Assessment and plan (1) Complete obstruction of small intestine: Status: Acute (2) Dehydration: Status: Acute (3) Anemia, normocytic normochromic: Status: Acute (4) Atrial fibrillation: Status: Acute Plan Patient's clinical picture still suggests total obstruction but we will proceed with small bowel follow-through. If he should need laparotomy the stoma should be plicated to prevent prolapse. Antibiotics will be continued. Sepsis Sepsis Identified: No Time Spent With Patient Time: Total time spent is greater than 50% in coordination of care (as documented) at patient's floor/unit and/or counseling patient:
[2022-10-07] MEDS: PANTOPRAZOLE 40 MG VIAL IV SCH (13:16)
[2022-10-07] MEDS ORDERED: DIATRIZOATE MEGLU/DIATRIZO SOD 120 ML BOTTLE PO ONE (17:06)
[2022-10-07] MEDS: METOCLOPRAMIDE 10 MG/2 ML VIAL IV SCH (17:07)
--- NOTE | 2022-10-07 17:18 | XRay Report ---
INDICATION: evaluate small bowel obstruction TECHNIQUE: Small bowel examination was performed with dilute water-soluble contrast material. This was injected through the esophagogastric tube. COMPARISON: CT scan dated 10/06/2022. Plain film examination dated 10/07/2022 FINDINGS: Decreased small bowel distention. There is contrast material within the colon by 2 hours and 45 minutes post ingestion. By 4 hours and 45 minutes post ingestion there is contrast material within the colostomy bag. Findings are consistent with resolving or resolved small bowel obstruction. IMPRESSION: 1. Contrast material in the colon as above 2. Resolving or resolved mechanical small bowel obstruction. No high-grade obstruction. Interpreted and Authenticated by: Sai Celeste 10/07/22
[2022-10-08] MEDS: METOCLOPRAMIDE 10 MG/2 ML VIAL IV SCH (01:16)
[2022-10-08] MEDS: 0.9 % SODIUM CHLORIDE 10 ML SYRINGE IV SCH ×2 (05:33→15:04)
[2022-10-08] MEDS: DEXTROSE 5%-LR 1,000 ML IV SCH ×2 (05:33→15:04)
[2022-10-08] MEDS: PANTOPRAZOLE 40 MG VIAL IV SCH (06:54)
[2022-10-08 07:26] LABS: Basophils # (Auto) 0.03 K/mcL (0.00-0.30); Basophils % (Auto) 0.5 % (0.0-2.0); Eosinophils # (Auto) 0.17 K/mcL (0.00-0.70); Hematocrit 33.9 % (40.1-51.0); Hemoglobin 10.9 g/dL (13.7-17.5); Lymphocytes # (Auto) 0.81 K/mcL (1.50-4.80); Lymphocytes % (Auto) 14.2 % (15.5-49.0); Mean Cell Volume 91.9 fL (80.0-100.0); Mean Corpuscular HGB Conc 32.2 g/dL (31.0-36.0); Mean Platelet Volume 10.6 fL (8.8-12.5); Monocytes % (Auto) 10.5 % (1.0-12.0); Neutrophils % (Auto) 71.6 % (38.0-78.0); Platelet Count 224 K/mcL (140-440); RBC 3.69 M/mcL (4.63-6.08); Red Cell Distribution Width 15.2 % (11.5-14.5); WBC 5.7 K/mcL (4.5-11.0)
[2022-10-08 08:05] LABS: ALT/SGPT 9 U/L (<40); AST/SGOT 10 U/L (<40); Albumin 2.7 gm/dL (3.2-5.2); Albumin/Globulin Ratio 1.1 (1.0-2.3); Alkaline Phosphatase 84 U/L (39-117); Bilirubin,Total 0.3 mg/dL (0.1-1.0); Blood Urea Nitrogen 8 mg/dL (8-23); Calcium 8.4 mg/dL (8.6-10.4); Carbon Dioxide 29 mmol/L (22-30); Chloride 105 mmol/L (96-108); Globulin 2.4 gm/dL (2.2-3.7); Glomerular Filtration Rate 80; Glucose 93 mg/dL (70-105)
[2022-10-08] MEDS: HEPARIN 5,000 UNIT/ML VIAL SQ SCH (08:42)
--- NOTE | 2022-10-08 09:01 | XRay Report ---
INDICATION: FOLLOW -UP OF SMALL BOWEL OBSTRUCTION TECHNIQUE: Supine and upright abdomen. COMPARISON: Previous examinations dated 10/07/2022 FINDINGS:There is some residual contrast material within colon. There is contrast material in the urinary bladder. Bowel gas pattern is unremarkable without small bowel dilatation. Appearance is consistent with resolution of mechanical small bowel obstruction. There has been interval removal of the esophagogastric tube IMPRESSION: Markedly improved bowel gas pattern consistent with resolution of mechanical small bowel obstruction Interpreted and Authenticated by: Sai Celeste 10/08/22
--- NOTE | 2022-10-08 12:09 | General Surgery Progress Note ---
SUBJECTIVE Subjective Patient information: Note initiated : 10/08/22 at 12:05 pm Service Date, if different from initiated Date: [] Patient: Fei Rodrigues 86 y/o M admitted on 10/06/22 for abd pain, recent emergent surgery. Chief Complaint: [Abdominal pain with nausea and vomiting] Principal diagnosis: Partial small bowel obstruction Interval history: Patient has continued to do well. He had major output of stool and gas during the night. He has tolerated soft diet without difficulty. He denies nausea or or abdominal pain. 2 view abdominal x-rays shows minimal contrast in the small bowel with a small amount of contrast in the colon with no obstructive findings. Constitutional Vitals: Vital Signs Temp Pulse Resp BP Pulse Ox O2 Del Method 97.7 F 90 14 91/52 90 10/08/22 11:55 10/08/22 11:55 10/08/22 11:55 10/08/22 11:55 10/08/22 11:55 10/08/22 11:55 Period Temp Pulse Resp BP Sys/[place] Pulse Ox O2 Del Method O2 Flow Rate Last 24 Hr 97.3 F-99.6 F 86-98 14-18 91-118/52-86 90-97 Room Air-Room Air Intake and Output 10/08/22 10/08/22 10/08/22 03:59 11:59 19:59 Intake Total 1120 Output Total 50 160 Balance -50 960 Intake & Output: Intake & Output 10/08/22 10/08/22 10/08/22 03:59 11:59 19:59 Intake Total 1120 Output Total 50 160 Balance -50 960 Intake: IV 1000 Dextrose 5%-Lactated Ringers 1, 1000 000 ml @ 100 mls/hr IV .Q10H [facility] Rx#:[id number] Oral 120 Output: Void Amount 160 Stool 50 Other: Urine Appearance Clear Clear Urine Color Dark Yellow Dark [place] Urine Odor Normal Normal Stool Size Small Stool Color Green Brown Yellow Blood Tinged Stool Consistency Liquid Loose # of times incontinent of 1 Bowels Eye Eye exam: Present EOMI ENT ENT exam: Present mucous membranes moist and normal oropharynx Additional comments: Edentulous Neck Neck exam: Present full ROM and normal inspection; Absent lymphadenopathy or tenderness Respiratory Respiratory exam: Present normal respiratory exam and CTAB Cardiovascular Cardiovascular exam: Present normal rate and rhythm, RRR, +S1 and +S2; Absent JVD GI/Abdominal GI/Abdominal exam: Present normal bowel sounds and soft; Absent distended Additional comments: Prolapse of colostomy stoma but without obstruction Extremities Exam Extremities exam: Present normal inspection and neurovascular intact Neurological Exam Neurological exam: Present alert and oriented X3; Absent motor sensory deficit Psychiatric Psychiatric exam: Present normal mood A/P Assessment and plan (1) Partial obstruction of small intestine: Status: Acute (2) Anemia, normocytic normochromic: Status: Acute (3) Atrial fibrillation: Status: Acute Plan Patient is doing well and is tolerating diet without difficulty. He is stable for discharge home Routine follow-up with Dr. Mcfarland as needed Sepsis Sepsis Identified: No Time Spent With Patient Time: Total time spent is greater than 50% in coordination of care (as documented) at patient's floor/unit and/or counseling patient:
--- NOTE | 2022-10-08 12:23 | Discharge Summary ---
Discharge Provider Provider IMPORTANT FOLLOW-UP INFORMATION FOR PCP: Patient information: Note initiated : 10/08/22 at 12:21 pm Service Date, if different from initiated Date: [] Patient: Fei Rodrigues 86 y/o M admitted on 10/06/22 for abd pain, recent emergent surgery. Chief Complaint: [] Date of admission: 10/06/22 21:29 Discharge date: 10/08/22 Primary care physician: Sai Elizabeth DO Attending physician on admission: Ernesto Tony Consults: 10/06/22 Consult to Physician [CONS] Stat Comment: Consulting Provider: Ernesto Tony Reason For Exam: Physician to Consult Consult to Physician [CONS] Stat Comment: Consulting Provider: Wesley Cohen Reason For Exam: Physician to Consult Attending physician on discharge: Ernesto Tony COURSE Hospital Course Hospital course: Mr. Rodrigues is a 86 year old M history of sigmoid diverticulitis, complicated by bowel perforations doing colonoscopy, status post ex lap with sigmoid colectomy with end ostomy placement by general surgeon Dr. Mcfarland on August 03, atrial fibrillation status post pacemaker placement, CAD, BPH, presenting with 1 day history of nausea vomiting and intermittent abdominal pain. He is experiencing 5 out of 10, cramping, intermittent abdominal pain around his ostomy site. He is also complained of nausea and vomiting. He denies any change in the quality or quantity of his ostomy output. He denies any subjective fever, but he is complaining of shaking chills. Labs significant for leukocytosis with WBC 19.6. Lactic acid 2.0. CT of the abdomen pelvis showing findings consistent with mechanical small bowel obstructions. Transition point is in the right side of the upper pelvis. Admission request was called for mechanical small bowel obstructions. 10/07: S/p NG tube insertion with low intermittent suction, approximately 2 L output since. No bowel movement through the and ostomy bag. WBC down-trended from 19.6 to 8.0. Patient denies any abdominal pain, nausea, or vomiting at the moment. Repeat abdominal x-ray this morning showing the same mechanical small bowel obstructions with no interval progressions. We will keep the patient n.p.o. status with IV fluid infusions. Keep the NG tube in place with low intermittent suction's. Continue narcotics and antiemetics for symptoms relief. d/c Zosyn. Rest of the management as per g eneral surgeon Dr. Mcfarland. 10/08: Status post Gastrografin small bowel follow-through with large bowel movement passed on the same date on 10/07. Patient is tolerating diet. He denies any abdominal pain nausea or vomiting. He has reached clinical stability. Decision made to discharge patient home. Follow-up with family doctor. Follow-up with general surgeons on an as-needed basis. All questions answered prior to patient being physically discharged. Discharge diagnosis: Small bowel obstruction Time Spent with Patient Time attestation: Total time spent providing and/or coordinating discharge services: Time spent: Less than 30 minutes EXAM Constitutional Vitals: Temp Pulse Resp BP Pulse Ox O2 Del Method 36.5 C 90 14 91/52 90 10/08/22 11:55 10/08/22 11:55 10/08/22 11:55 10/08/22 11:55 10/08/22 11:55 10/08/22 11:55 General appearance: cooperative, no acute distress and thin Head Head exam: Present atraumatic and normocephalic Eye Eye exam: Present EOMI and PERRL ENT ENT exam: Present mucous membranes moist, normal exam and normal external ear exam Neck Neck exam: Present normal inspection; Absent lymphadenopathy, tenderness or thyromegaly Respiratory Respiratory exam: Absent accessory muscle use, respiratory distress or wheezes Cardiovascular Cardiovascular exam: Present normal rate and rhythm; Absent JVD Additional comments: Pacemaker in place GI/Abdominal GI/Abdominal exam: Present normal bowel sounds and soft; Absent organomegaly or tenderness Additional comments: Well healed ventral abdominal surgical scar End ostomy bag in place. Rectal Rectal exam: Present deferred Extremities Exam Extremities exam: Present full ROM, normal capillary refill and normal inspection; Absent tenderness Neurological Exam Neurological exam: Present alert, CN II-XII intact and oriented X3; Absent motor sensory deficit Psychiatric Psychiatric exam: Present normal affect and normal mood; Absent anxious or depressed Skin Skin exam: Present dry and intact Discharge Data Data Completed and Pending Labs on day of discharge: Labs from last 24 hours 10/08/22 10/08/22 05:15 05:15 WBC 5.7 RBC 3.69 L Hgb 10.9 L Hct 33.9 L MCV 91.9 MCH 29.5 MCHC 32.2 RDW 15.2 H Plt Count 224 MPV 10.6 Immature Gran % (Auto) 0.2 Neut % (Auto) 71.6 Lymph % (Auto) 14.2 L Bleckley % (Auto) 10.5 Eos % (Auto) 3.0 Baso % (Auto) 0.5 Lymph # (Auto) 0.81 L Bleckley # (Auto) 0.60 Eos # (Auto) 0.17 Baso # (Auto) 0.03 Immature Gran # 0.01 Absolute Neutrophils 4.08 Sodium 142 Potassium 3.7 Chloride 105 Carbon Dioxide 29 Anion Gap 8.0 BUN 8 Creatinine 0.8 GFR Calculation 80 Glucose 93 Calcium 8.4 L Total Bilirubin 0.3 AST 10 ALT 9 Alkaline Phosphatase 84 Total Protein 5.1 L Albumin 2.7 L Globulin 2.4 Albumin/Globulin Ratio 1.1 Preliminary micro results at discharge 10/06/22 20:43 Blood Culture - Preliminary Blood 10/06/22 20:41 Blood Culture - Preliminary Blood Discharge Plan Patient/Caregiver Discharge Instructions Activity: increase activity as tolerated Diet: Dysphagia Level 4 Pureed Foods Prescriptions: Continued (DME) Oxygen Qty: 1 0RF Rx Instructions: 2 liters at night. tamsulosin 0.4 mg capsule 0.4 mg PO QDAY Qty: 90 3RF acetaminophen [Tylenol] 325 mg tablet 650 mg PO QDAY PRN (Reason: Pain) calcium carbonate-vitamin D3 500mg (1,250mg) -600 unit tablet 1 tab PO QDAY cyanocobalamin (vitamin B-12) [Vitamin B-12] 2,500 mcg tablet, sublingual 2,500 mcg SUBLINGUAL QDAY lactobac cmb #[id number] 1 cap PO QDAY multivitamin 1 each PO DAILY cholecalciferol (vitamin D3) 2,000 unit capsule 2,000 unit PO QDAY atorvastatin 20 mg tablet 20 mg PO QDAY omega-3 fatty acids [Fish Oil Concentrate] 1,000 mg capsule 1,000 mg PO QDAY apixaban 5 mg tablet 5 mg PO BID metoprolol succinate 50 mg tablet extended release 24 hr 50 mg PO QDAY magnesium oxide 400 mg magnesium capsule 400 mg PO QDAY oxycodone 5 mg tablet 5 mg PO Q4H PRN (Reason: pain) Qty: 20 0RF Follow Up Plan Follow up with: Sai Eilzabeth DO [Primary Care Provider] - Patient Disposition: Home, Self-Care Prognosis: Fair Rehab Potential: Good I certify that the patient requires SNF services: No Overall status at discharge: patient is back to baseline Discharge Orders: Discharge Order (Routine); Ordered 10/08/22 Ordered By: Ernesto Tony
== END 2022-10-08 15:28 | disposition home or self-care (01) | DRG 389 ==
LOC: ED 18:29 → MEDSUR 21:29
PROVIDERS: ADMIT Internal Medicine; ATTEND Internal Medicine

== ENCOUNTER 2022-11-05 20:39 | Inpatient (IN) ==
[2022-11-05] MEDS ORDERED: IOPAMIDOL 100 ML BOTTLE IV ONE (20:40)
[2022-11-05] MEDS ORDERED: ONDANSETRON 4 MG/2 ML VIAL IV ONE ×2 (20:45→22:51)
[2022-11-05 20:59] LABS: POC Calcium, Ionized 1.2 (1.16-1.32); POC Creatinine 0.7 (0.6-1.2); POC Potassium 3.7 (3.3-5.1)
[2022-11-05] MEDS ORDERED: 0.9 % SODIUM CHLORIDE 1,000 ML IV ONE (21:37)
[2022-11-05 21:58] LABS: Basophils # (Auto) 0.03 K/mcL (0.00-0.30); Basophils % (Auto) 0.3 % (0.0-2.0); Eosinophils # (Auto) 0.13 K/mcL (0.00-0.70); Eosinophils % (Auto) 1.2 % (0.0-7.0); Hematocrit 35.7 % (40.1-51.0); Hemoglobin 11.3 g/dL (13.7-17.5); Lymphocytes # (Auto) 0.59 K/mcL (1.50-4.80); Lymphocytes % (Auto) 5.3 % (15.5-49.0); Mean Cell Volume 94.2 fL (80.0-100.0); Mean Corpuscular HGB Conc 31.7 g/dL (31.0-36.0); Mean Platelet Volume 10.1 fL (8.8-12.5); Monocytes # (Auto) 0.63 K/mcL (0.10-0.90); Monocytes % (Auto) 5.7 % (1.0-12.0); Neutrophils % (Auto) 87.1 % (38.0-78.0); Platelet Count 311 K/mcL (140-440); RBC 3.79 M/mcL (4.63-6.08); Red Cell Distribution Width 16.5 % (11.5-14.5); WBC 11.2 K/mcL (4.5-11.0)
[2022-11-05 22:21] LABS: ALT/SGPT 10 U/L (<40); AST/SGOT 16 U/L (<40); Albumin 3.6 gm/dL (3.2-5.2); Alkaline Phosphatase 122 U/L (39-117); Bilirubin,Direct 0.2 mg/dL (<0.3); Bilirubin,Total 0.6 mg/dL (0.1-1.0); Globulin 3.2 gm/dL (2.2-3.7)
[2022-11-05] MEDS ORDERED: VANCOMYCIN 1,000 MG in 0.9 % SODIUM CHLORIDE 250 ML IV ONE (22:38)
[2022-11-05] MEDS ORDERED: CEFEPIME 1 GM VIAL IV ONE (22:38)
[2022-11-05] MEDS ORDERED: diphenhydrAMINE 50 MG/ML VIAL IV ONE (22:51)
--- NOTE | 2022-11-06 00:07 | Emergency Department Note ---
HPI General Chief complaint: Abdominal Pain Stated complaint: abdominal pain Time Seen by Provider: 11/05/22 20:45 Source: patient and EMS Mode of arrival: EMS Limitations: no limitations History of Present Illness HPI Narrative: Narrative: This is a 86-year-old male with a prior history of perforated diverticulitis status post colostomy, bowel obstruction, atrial fibrillation, COPD who presents to the emergency department with shortness of breath abdominal pain. Patient states that he has had worsening abdominal pain throughout the day. He also reports worsening shortness of breath. He was actually seen at his primary care provider's office for hypoxia. The patient usually only wears oxygen at night but has been requiring it 24/ up to 2 L. Patient also feels that he has symptoms consistent with bowel obstruction. Nausea, no vomiting but abdominal discomfort. Patient has had output through his ostomy today. Related Data Home Medications Medication Instructions Recorded Confirmed acetaminophen 325 mg tablet 650 mg PO QDAY PRN Pain 06/07/16 11/05/22 (Tylenol) calcium carbonate 500 mg-vitamin 1 tab PO QDAY 06/07/16 11/05/22 D3 15 mcg (600 unit) tablet cyanocobalamin (vitamin B-12) 2,500 mcg sublingual QDAY 06/07/16 11/05/22 2,500 mcg sublingual tablet (Vitamin B-12) lactobac cmb #[id number] 1 cap PO QDAY 06/07/16 11/05/22 [Probiotic and Acidophilus] multivitamin 1 each PO DAILY 06/07/16 11/05/22 cholecalciferol (vitamin D3) 50 2,000 unit PO QDAY 01/16/19 11/05/22 mcg (2,000 unit) capsule atorvastatin 20 mg tablet 20 mg PO QDAY 04/03/19 11/05/22 omega-3 fatty acids 1,000 mg 1,000 mg PO QDAY 04/03/19 11/05/22 capsule (Fish Oil Concentrate) apixaban 5 mg tablet 5 mg PO BID 09/15/20 11/05/22 metoprolol succinate 50 mg 50 mg PO QDAY 03/18/22 11/05/22 tablet,extended release 24 hr magnesium oxide 400 mg PO QDAY 06/09/22 11/05/22 albuterol sulfate 90 mcg/actuation 2 puff inhalation 10/21/22 11/05/22 aerosol inhaler (Ventolin HFA) Previous Rx's Medication Instructions Recorded Oxygen #1 ea 10/20/20 tamsulosin 0.4 mg capsule 0.4 mg PO QDAY #90 caps 11/09/21 oxycodone 5 mg tablet 5 mg PO Q4H PRN pain #20 tabs 08/13/22 Allergies Allergy/AdvReac Type Severity Reaction Status Date / Time codeine AdvReac Mild Nausea Verified 11/06/22 02:26 Review of Systems ROS ROS Narrative: Narrative: All systems ED: reviewed and negative except as stated. [facility] Narrative Patient History Narrative: Narrative: Medical/Surgical/Family History All Active Problems (Updated 11/06/22 @ 06:52 by Rambo Siegel MD) Pneumonia (Acute) Bowel obstruction (Acute) Pneumonia (Acute) Small bowel obstruction (Acute) Hypoxia (Acute) Exertional dyspnea (Acute) Partial obstruction of small intestine (Acute) Dehydration (Acute) Pneumonia (Acute) C. difficile diarrhea (Acute) Complete obstruction of small intestine (Acute) Anemia, normocytic normochromic (Acute) Atrial fibrillation (Acute) Colon perforation (Acute) Nausea (Acute) Tingling sensation (Acute) Hemarthrosis of knee, right (Acute) Knee injury (Acute) Unstable right knee (Acute) Pain and swelling of right knee (Acute) Medicare annual wellness visit, initial (Acute) PAF (paroxysmal atrial fibrillation) (Chronic) Sinus node dysfunction (Chronic) Nonsustained ventricular tachycardia (Chronic) Lower urinary obstructive symptom (Chronic) BPH w urinary obs/LUTS (Chronic) Diarrhea (Chronic) Closed rib fracture (Acute) CAD (coronary artery disease) (Chronic) Ventricular tachycardia (Acute) Syncope, near (Acute) Hearing loss (Chronic) Cataracts, bilateral (Chronic) Vertigo (Chronic) Malignant neoplasm of bronchus and lung, unspecified site (Chronic) Positional vertigo (Acute) Presence of cardiac pacemaker (Chronic) Bilateral hydrocele (Chronic) Malignant neoplasm of lung (Chronic) Bruit of left carotid artery (Chronic) Weight loss (Chronic) Vasovagal syncope (Chronic 12/18/05) Acute sinusitis (Chronic 02/05/14) Schatzki's ring (Chronic) Lymphadenopathy (Chronic) Peripheral vascular disease (Chronic) Osteoporosis (Chronic) Osteoarthritis (Chronic) Onychomycosis (Chronic) Obstructive uropathy (Chronic) Lichen planus (Chronic) Right inguinal pain (Chronic) Accelerated idioventricular rhythm (Chronic) Nocturnal hypoxemia (Chronic) Hypotension (Chronic) Hyperlipidemia (Chronic) Hydrocele (Chronic 11/29/13) Hammer toe (Chronic) Family history of stress (Chronic) Esophagitis (Chronic) Enlarged prostate (Chronic) Dyspnea (Chronic) Dysphagia (Chronic 11/29/13) Dupuytren's contracture (Chronic) Depression (Chronic) Colon adenoma (Chronic) COPD (chronic obstructive pulmonary disease) (Chronic) Chronic bronchitis (Chronic) Bradycardia (Chronic 12/18/05) Low back pain (Chronic 12/24/06) Actinic keratosis (Chronic) Anemia (Chronic) Abdominal aortic aneurysm (AAA) (Chronic) Medical History Abdominal aortic aneurysm (AAA) Aortic endograft Accelerated idioventricular rhythm Actinic keratosis Acute sinusitis (02/05/14) Anemia BPH w urinary obs/LUTS Improved greatly with Flomax 0.4 mg daily. Bradycardia (12/18/05) Sinus of unknown origina Chronic bronchitis Closed fracture of wrist 10/10 right Closed hip fracture left Closed skull fracture (12/18/05) fell and hit head on the toilet, passed out. Colon adenoma 2004 COPD (chronic obstructive pulmonary disease) Depression Diarrhea Dupuytren's contracture Dysphagia (11/29/13) recurrent Dyspnea Enlarged prostate Esophagitis H/O Family history of stress Gastritis Hammer toe Right second and third toes History of blood transfusion 2 units History of ECG (09/30/15) History of echocardiogram 06/03/15 - [facility]. 03/29/19 - [facility]. History of pacemaker (06/20/10) BIOTRONIK MODEL 289336 History of tobacco abuse Stopped Hydrocele (11/29/13) Bilateral large, left greater than right Hyperlipidemia Now on atorvastatin at 20 mg each day Hypotension Beta-aniyah added Lichen planus Low back pain (12/24/06) Lower urinary obstructive symptom Denies history of BPH or urinary obstructive symptoms. States symptoms just started about 6 months ago. Prostate only 2+ today and nontender. Smooth with no nodules. AUA score is 18 today and he has mixed quality of life due to his symptoms. We will check PSA. We will get urine sample with next set of pelvic pain. Lymphadenopathy Perililar. H/O. Malignant neoplasm of bronchus and lung, unspecified site 2011 non-small cell carcinoma Medicare annual wellness visit, initial Nocturnal hypoxemia Overnight pulse ox from August 2020 shows O2 sats <88% for 56 minutes total overnight. Nonsustained ventricular tachycardia Obstructive uropathy Onychomycosis Osteoarthritis Osteoporosis Peripheral vascular disease Asymptomatic, but abnormal MAGALY -0.43 on the right Arterial duplex of bilateral lower extremities ordered Continue statin. Not on aspirin due to being anticoagulated. Right inguinal pain Schatzki's ring Sinus node dysfunction Pacemaker Squamous cell carcinoma lung Vasovagal syncope (12/18/05) and collapse Weight loss Surgical History History of biopsy (09/15/07) right flank lesion History of bronchoscopy (06/01/12) History of colonoscopy (09/06/13) Two polypoid fragments of colonic mucosa with minimal surface hyperplastic change History of esophagogastroduodenoscopy (EGD) (09/07/11) 09/07/11 MICRO: CHRONIC GASTRITIS WITH INTESTINAL METAPLASIA AND FOCAL ACUTE INFLAMMATION. CONSULT: SCHATZKI'S RING, SMALL HIATAL HERNIA, GASTRITIS. 06/30/16 Schatzki's ring dilated and Egan's esophagus. History of exploratory laparotomy 08/03/2022-1. Exploratory laparotomy with resection of sigmoid perforation. 2. End colostomy. 3. Washout and drainage History of lobectomy of lung History of lobectomy of lung 06/11 RIGHT LOWER LOBE followed by chemotherapy History of lung biopsy (05/02/12) History of surgery (06/01/12) Mediastinoscopy History of thoracotomy (06/01/12) RIGHT LOWER LOBE WAS RESECTED THRU A LIMITED RIGHT THORACOTOMY History of tonsillectomy S/P AAA repair (~2012) Status post-operative repair of closed fracture of left hip 2010 hemiarthroplasty Family History Mother , age 76 Diabetes mellitus Heart disease Father , age 61 Heart disease Peptic ulcer Brother CAD (coronary artery disease) Social History Smoking Status: Former smoker Alcohol Intake Frequency: 0-2 drinks per day Substance Use: does not use Exam Narrative Narrative: Narrative: Vital signs noted General: Awake. Alert. Mild distress HEENT: NCAT PERRL EOMI. No conjunctivitis. Membranes moist. Neck: Supple, trachea midline Cardiovascular: Irregularly irregular. No murmur. No rubs. No gallops. Respiratory: Diminished breath sounds in the bases Gastrointestinal: Soft. Hypoactive bowel sounds, tenderness to palpation without guarding rigidity or other peritoneal signs Musculoskeletal: No pain. No soft tissue swelling. Good ROM. No signs injury Skin: Warm. Dry. No rash Neurologic: Alert and oriented x3 General Limitations: no limitations Course Vital Signs Vital signs: Vital Signs Temperature 97.2 F 11/05/22 20:41 Pulse Rate 110 H 11/05/22 20:41 Respiratory Rate 18 11/05/22 20:41 Blood Pressure 102/62 11/05/22 20:41 Pulse Oximetry (%) 81 L 11/05/22 20:41 Oxygen Delivery Method 11/05/22 20:41 Temperature 97.7 F 11/06/22 04:00 Pulse Rate 111 H 11/06/22 04:00 Respiratory Rate 20 11/06/22 04:00 Blood Pressure 112/68 11/06/22 04:00 Pulse Oximetry (%) 92 11/06/22 04:00 Oxygen Delivery Method 11/06/22 04:00 Oxygen Flow Rate (L/min) 4 11/06/22 04:00 [facility] Narrative Medical decision making narrative: Narrative: Patient presents with abdominal pain shortness of breath. He does report a slightly productive cough for the last several days. Dr. Motley note was reviewed from earlier today. Patient had grossly normal labs. Chest x-ray was reviewed from earlier today and patient has right middle lobe infiltrates and left lower lobe infiltrates. This appears new or at least worsening from an x- ray obtained in August of this year. Patient now has leukocytosis of 11,000 with left shift. His procalcitonin is not significantly elevated. His lactate is within normal limits. Given the patient's recent hospitalization in the last 90 days I did cover the patient with Vanco and cefepime. Patient's CT scan per my interpretation shows dilated loops of bowel. Radiologist read as recurrent high-grade acute small bowel obstruction with transition point in the mid abdomen possibly on the basis of adhesions adjacent twisting of the mesentery raising concern for volvulus or internal hernia as additional etiologies. No free air. Patient does have some cholelithiasis with mildly dilated gallbladder as well. Patient's hepatic function panel reveal mildly elevated alk phos. I have spoke with the hospitalist regards to the patient's pneumonia I have spoke with Dr. Cohen who has agreed to consult on the patient's bowel obstruction. Multiple nurses attempted to place nasogastric tube for decompression. This was unsuccessful and the patient did not tolerate it well. My hope was that radiology is able to place 1 in the morning. Lab Data Result diagrams: 11/05/22 20:45 Labs: Lab Results 11/05/22 11/05/22 11/05/22 Range/Units 20:45 20:45 20:47 WBC 11.2 H (4.5-11.0) K/mcL RBC 3.79 L (4.63-6.08) M/mcL Hgb 11.3 L (13.7-17.5) g/dL Hct 35.7 L (40.1-51.0) % POC Hct (41-55) MCV 94.2 (80.0-100.0) fL MCH 29.8 (26.0-34.0) pg MCHC 31.7 (31.0-36.0) g/dL RDW 16.5 H (11.5-14.5) % Plt Count 311 (140-440) K/mcL MPV 10.1 (8.8-12.5) fL Immature Gran % (Auto) 0.4 (0.0-0.5) % Neut % (Auto) 87.1 H (38.0-78.0) % Lymph % (Auto) 5.3 L (15.5-49.0) % Cottle % (Auto) 5.7 (1.0-12.0) % Eos % (Auto) 1.2 (0.0-7.0) % Baso % (Auto) 0.3 (0.0-2.0) % Lymph # (Auto) 0.59 L (1.50-4.80) K/mcL Cottle # (Auto) 0.63 (0.10-0.90) K/mcL Eos # (Auto) 0.13 (0.00-0.70) K/mcL Baso # (Auto) 0.03 (0.00-0.30) K/mcL Immature Gran # 0.04 (0.00-0.05) K/mcl Absolute Neutrophils 9.73 H (1.80-8.00) K/mcL POC VBG pH (7.32-7.42) POC VBG pCO2 at Temp (41-51) POC VBG pO2 (25-40) POC VBG HCO3 (24-28) POC VBG Total CO2 (25-29) POC Venous O2 Sat (40-70) POC VBG Base Excess (-2-2) VBG Lactic Acid (0.5-2) POC Sodium (133-145) POC Potassium (3.3-5.1) POC Chloride (96-108) POC Total CO2 (22-30) POC BUN (6-20) POC Creatinine (0.6-1.2) POC Glucose (70-105) POC WB Ioniz Calcium (1.16-1.32) Total Bilirubin 0.6 (0.1-1.0) mg/dL Direct Bilirubin 0.2 (<0.3) mg/dL AST 16 (<40) U/L ALT 10 (<40) U/L Alkaline Phosphatase 122 H (39-117) U/L Total Protein 6.8 (5.9-8.4) gm/dL Albumin 3.6 (3.2-5.2) gm/dL Globulin 3.2 (2.2-3.7) gm/dL Lipase 15 (7-60) U/L Procalcitonin 0.08 (<0.10) ng/mL 11/05/22 11/05/22 Range/Units 20:50 20:54 WBC (4.5-11.0) K/mcL RBC (4.63-6.08) M/mcL Hgb (13.7-17.5) g/dL Hct (40.1-51.0) % POC Hct 37.0 L (41-55) MCV (80.0-100.0) fL MCH (26.0-34.0) pg MCHC (31.0-36.0) g/dL RDW (11.5-14.5) % Plt Count (140-440) K/mcL MPV (8.8-12.5) fL Immature Gran % (Auto) (0.0-0.5) % Neut % (Auto) (38.0-78.0) % Lymph % (Auto) (15.5-49.0) % Cottle % (Auto) (1.0-12.0) % Eos % (Auto) (0.0-7.0) % Baso % (Auto) (0.0-2.0) % Lymph # (Auto) (1.50-4.80) K/mcL Cottle # (Auto) (0.10-0.90) K/mcL Eos # (Auto) (0.00-0.70) K/mcL Baso # (Auto) (0.00-0.30) K/mcL Immature Gran # (0.00-0.05) K/mcl Absolute Neutrophils (1.80-8.00) K/mcL POC VBG pH 7.38 (7.32-7.42) POC VBG pCO2 at Temp 40.3 L (41-51) POC VBG pO2 18 L (25-40) POC VBG HCO3 23.7 L (24-28) POC VBG Total CO2 25.0 (25-29) POC Venous O2 Sat 26.0 L (40-70) POC VBG Base Excess -2.0 (-2-2) VBG Lactic Acid 1.2 (0.5-2) POC Sodium 140 (133-145) POC Potassium 3.7 (3.3-5.1) POC Chloride 107 (96-108) POC Total CO2 26.0 (22-30) POC BUN 26 H (6-20) POC Creatinine 0.7 (0.6-1.2) POC Glucose 114 H (70-105) POC WB Ioniz Calcium 1.20 (1.16-1.32) Total Bilirubin (0.1-1.0) mg/dL Direct Bilirubin (<0.3) mg/dL AST (<40) U/L ALT (<40) U/L Alkaline Phosphatase (39-117) U/L Total Protein (5.9-8.4) gm/dL Albumin (3.2-5.2) gm/dL Globulin (2.2-3.7) gm/dL Lipase (7-60) U/L Procalcitonin (<0.10) ng/mL ED POC Tests ED POC Tests: JARAD - Influenza A Negative JARAD - Influenza B Negative JARAD - SARS Antigen Negative Discharge Plan Patient/Caregiver Discharge Instructions Pt seen by [employer] PA[employer]/PA only: No Clinical Impression: Pneumonia, Bowel obstruction Activity: resume usual activities as tolerated Patient Disposition: Xfer As Inpt ([facility]) Condition: Fair Discharge Date/Time: 11/06/22 02:01
[2022-11-06] MEDS ORDERED: LIDOCAINE JEL 2% 1 TUBE 5ML TOPICAL ONE (00:19)
[2022-11-06] MEDS ORDERED: ONDANSETRON 4 MG/2 ML VIAL IV PRN ×2 (00:22→08:24)
[2022-11-06] MEDS ORDERED: HYDROmorphone 0.5 MG/0.5 ML SYRINGE IV PRN (00:22)
[2022-11-06] MEDS ORDERED: IPRATROPIUM/ALBUTEROL 3 ML AMPUL.NEB NEB PRN ×2 (00:28→08:24)
[2022-11-06] MEDS: 0.9 % SODIUM CHLORIDE 10 ML SYRINGE IV SCH ×4 (02:24→23:05)
[2022-11-06] MEDS: LACTATED RINGERS 1,000 ML IV SCH ×3 (02:25→20:06)
--- NOTE | 2022-11-06 04:22 | Cat Scan Report ---
CLINICAL INFORMATION: Abdominal pain and distention vomiting COMPARISON: Chest abdomen and pelvic CT 12/20/2014 and abdomen and pelvic CT 10/06/2022 TECHNIQUE: Following enteric contrast, 80 cc of Isovue-[id number] were injected intravenously, and 60 seconds later, 0.625 mm helical slices were obtained from the mid heart through the subtrochanteric regions. Following reconstruction, 2.5 mm sagittal, coronal and axial reformatted images were processed and reviewed at bone, lung and soft tissue windows. Five minutes later, 0.625 mm helical slices were obtained from the mid heart through the kidneys and viewed at soft tissue windows.The exam was performed using radiation dose optimization techniques including, but not limited to, automated exposure control, adjustment of the mA and/or kV according to patient size and use of iterative reconstruction technique. FINDINGS: The lung bases again show severe emphysema. Since the CT less than one month prior, a moderate consolidated infiltrate has developed in the posterior left lower lobe and a moderate-sized groundglass infiltrate has progressed in the right lower lobe. There is a 22 mm nodular density with irregular borders in the superior aspect of the right lower lobe infiltrate which was not previously seen. Given the rapid development of this entity, it should represent inflammation rather than neoplasia. Suggest follow-up imaging. The heart is mildly enlarged with pacemaker leads in satisfactory position. There is asymmetric enlargement of the right atrium and ventricle suggesting pulmonary hypertension related to COPD. Heavy calcific plaque present in the coronary arteries. Abdominal images show 2-3 tiny stones in the gallbladder fundus. Gallbladder, otherwise, appears normal. The intrahepatic and common bile duct normal caliber: CBD is 6 mm. The liver, spleen, both kidneys, adrenal glands, and pancreas are normal in size configuration and attenuation without focal lesion. Aortobiiliac endograft is in stable position-no evidence of endovascular leak. Aortic diameter is stable: 2.9 cm. Pelvic images show urinary bladder is normal. Prostate is mildly enlarged but unchanged: 4.5 cm diameter. Sigmoid colectomy changes with the distal descending colon swung into a colostomy in the left lower quadrant. Lagunas's pouch is seen in the rectal region. The stomach, proximal and mid small bowel are markedly dilated to a transition point in the right mid abdomen best seen on axial images 91 and coronal images 33. There appear to be adhesions or strictures and this region. The distal small bowel and colon are markedly decompressed.. No free air to suggest perforation or free fluid to suggest third spacing.. Bone windows mild L1 and moderate L2 compression fractures which are stable. Left hip prostheses is unremarkable. IMPRESSION: 1. Recurrent high-grade small bowel obstruction at the distal jejunal level due to adhesions or stricture within the right mid abdomen. 2. Aortobiiliac endovascular graft in stable position without evidence of complication. 3. Moderate bilateral lower lobe infiltrates which have progressed since the comparison CT less than one month prior. A 22 mm nodular density in the superior right lower lobe was not seen on previous exam. Given the rapid development of this lesion, a is likely inflammatory rather than neoplastic but suggest imaging follow-up. Severe underlying emphysema with pulmonary hypertension. 4. Cholelithiasis. 5. Sigmoid colectomy with colostomy of the mid descending colon in the left lower quadrant. Lagunas's pouch. Interpreted and Authenticated by: Sai Casper 11/06/22
--- NOTE | 2022-11-06 08:14 | Internal Med History&Physical ---
HPI History of Present Illness Patient information: Note initiated : 11/06/22 at 8:09 am Service Date, if different from initiated Date: [] Patient: Fei Rodrigues a 86 y/o M admitted on 11/06/22 for abdominal pain. Chief Complaint: [] History of present illness: Mr. Rodrigues is a 86 year old M Presents ED with abdominal pain as well as nausea vomiting patient also had a recent bowel obstruction. In the ED was found to have pneumonia and small bowel obstruction. He was last here the beginning of September for a bowel obstruction. He also presented in July with a bowel perforation after colonoscopy and underwent ex lap lap With sigmoid resection and colostomy Dr. Cohen was contacted for the bowel obstruction. Per the patient has abdominal pain about increasing throughout the day including increasing shortness of breath. Patient wears 2 L of oxygen at night but wore all day due low O2 sats. His shortness of breath is not particularly feel worse than usual. also had nausea with the abdominal pain. And has a cough for the past couple days. Patient was 80% on arrival room air oxygen. Chest x-ray that significant right lower lobe infiltrate as well as left lower lobe. CT abdomen pelvis with small bowel obstruction. Review of Systems: denies headache/fever/chills/chest pain/diarrhea. Otherwise see above. PFSH PFSH All Active Problems (Updated 11/06/22 @ 06:52 by Rambo Siegel MD) Pneumonia (Acute) Bowel obstruction (Acute) Pneumonia (Acute) Small bowel obstruction (Acute) Hypoxia (Acute) Exertional dyspnea (Acute) Partial obstruction of small intestine (Acute) Dehydration (Acute) Pneumonia (Acute) C. difficile diarrhea (Acute) Complete obstruction of small intestine (Acute) Anemia, normocytic normochromic (Acute) Atrial fibrillation (Acute) Colon perforation (Acute) Nausea (Acute) Tingling sensation (Acute) Hemarthrosis of knee, right (Acute) Knee injury (Acute) Unstable right knee (Acute) Pain and swelling of right knee (Acute) Medicare annual wellness visit, initial (Acute) PAF (paroxysmal atrial fibrillation) (Chronic) Sinus node dysfunction (Chronic) Nonsustained ventricular tachycardia (Chronic) Lower urinary obstructive symptom (Chronic) BPH w urinary obs/LUTS (Chronic) Diarrhea (Chronic) Closed rib fracture (Acute) CAD (coronary artery disease) (Chronic) Ventricular tachycardia (Acute) Syncope, near (Acute) Hearing loss (Chronic) Cataracts, bilateral (Chronic) Vertigo (Chronic) Malignant neoplasm of bronchus and lung, unspecified site (Chronic) Positional vertigo (Acute) Presence of cardiac pacemaker (Chronic) Bilateral hydrocele (Chronic) Malignant neoplasm of lung (Chronic) Bruit of left carotid artery (Chronic) Weight loss (Chronic) Vasovagal syncope (Chronic 12/18/05) Acute sinusitis (Chronic 02/05/14) Schatzki's ring (Chronic) Lymphadenopathy (Chronic) Peripheral vascular disease (Chronic) Osteoporosis (Chronic) Osteoarthritis (Chronic) Onychomycosis (Chronic) Obstructive uropathy (Chronic) Lichen planus (Chronic) Right inguinal pain (Chronic) Accelerated idioventricular rhythm (Chronic) Nocturnal hypoxemia (Chronic) Hypotension (Chronic) Hyperlipidemia (Chronic) Hydrocele (Chronic 11/29/13) Hammer toe (Chronic) Family history of stress (Chronic) Esophagitis (Chronic) Enlarged prostate (Chronic) Dyspnea (Chronic) Dysphagia (Chronic 11/29/13) Dupuytren's contracture (Chronic) Depression (Chronic) Colon adenoma (Chronic) COPD (chronic obstructive pulmonary disease) (Chronic) Chronic bronchitis (Chronic) Bradycardia (Chronic 12/18/05) Low back pain (Chronic 12/24/06) Actinic keratosis (Chronic) Anemia (Chronic) Abdominal aortic aneurysm (AAA) (Chronic) Medical History Abdominal aortic aneurysm (AAA) Aortic endograft Accelerated idioventricular rhythm Actinic keratosis Acute sinusitis (02/05/14) Anemia BPH w urinary obs/LUTS Improved greatly with Flomax 0.4 mg daily. Bradycardia (12/18/05) Sinus of unknown origina Chronic bronchitis Closed fracture of wrist 10/10 right Closed hip fracture left Closed skull fracture (12/18/05) fell and hit head on the toilet, passed out. Colon adenoma 2004 COPD (chronic obstructive pulmonary disease) Depression Diarrhea Dupuytren's contracture Dysphagia (11/29/13) recurrent Dyspnea Enlarged prostate Esophagitis H/O Family history of stress Gastritis Hammer toe Right second and third toes History of blood transfusion 2 units History of ECG (09/30/15) History of echocardiogram 06/03/15 - [facility]. 03/29/19 - [facility]. History of pacemaker (06/20/10) BIOTRONIK MODEL [id number] History of tobacco abuse Stopped Hydrocele (11/29/13) Bilateral large, left greater than right Hyperlipidemia Now on atorvastatin at 20 mg each day Hypotension Beta-aniyah added Lichen planus Low back pain (12/24/06) Lower urinary obstructive symptom Denies history of BPH or urinary obstructive symptoms. States symptoms just started about 6 months ago. Prostate only 2+ today and nontender. Smooth with no nodules. AUA score is 18 today and he has mixed quality of life due to his symptoms. We will check PSA. We will get urine sample with next set of pelvic pain. Lymphadenopathy Perililar. H/O. Malignant neoplasm of bronchus and lung, unspecified site 2011 non-small cell carcinoma Medicare annual wellness visit, initial Nocturnal hypoxemia Overnight pulse ox from August 2020 shows O2 sats <88% for 56 minutes total overnight. Nonsustained ventricular tachycardia Obstructive uropathy Onychomycosis Osteoarthritis Osteoporosis Peripheral vascular disease Asymptomatic, but abnormal MAGALY -0.43 on the right Arterial duplex of bilateral lower extremities ordered Continue statin. Not on aspirin due to being anticoagulated. Right inguinal pain Schatzki's ring Sinus node dysfunction Pacemaker Squamous cell carcinoma lung Vasovagal syncope (12/18/05) and collapse Weight loss Surgical History History of biopsy (09/15/07) right flank lesion History of bronchoscopy (06/01/12) History of colonoscopy (09/06/13) Two polypoid fragments of colonic mucosa with minimal surface hyperplastic change History of esophagogastroduodenoscopy (EGD) (09/07/11) 09/07/11 MICRO: CHRONIC GASTRITIS WITH INTESTINAL METAPLASIA AND FOCAL ACUTE INFLAMMATION. CONSULT: SCHATZKI'S RING, SMALL HIATAL HERNIA, GASTRITIS. 06/30/16 Schatzki's ring dilated and Egan's esophagus. History of exploratory laparotomy 08/03/2022-1. Exploratory laparotomy with resection of sigmoid perforation. 2. End colostomy. 3. Washout and drainage History of lobectomy of lung History of lobectomy of lung 06/11 RIGHT LOWER LOBE followed by chemotherapy History of lung biopsy (05/02/12) History of surgery (06/01/12) Mediastinoscopy History of thoracotomy (06/01/12) RIGHT LOWER LOBE WAS RESECTED THRU A LIMITED RIGHT THORACOTOMY History of tonsillectomy S/P AAA repair (~2012) Status post-operative repair of closed fracture of left hip 2010 hemiarthroplasty Family History Mother , age 76 Diabetes mellitus Heart disease Father , age 61 Heart disease Peptic ulcer Brother CAD (coronary artery disease) Social History household members: spouse housing: house lives independently: Yes marital status: occupational status: retired smoking status: Former smoker alcohol intake frequency: 0-2 drinks per day substance use type: does not use MEDS/ALLERGIES Home Medications and Allergies Home Medications Medication Instructions Recorded Confirmed Type acetaminophen 325 mg tablet 650 mg PO QDAY PRN Pain 06/07/16 11/05/22 History (Tylenol) calcium carbonate 500 mg-vitamin 1 tab PO QDAY 06/07/16 11/05/22 History D3 15 mcg (600 unit) tablet cyanocobalamin (vitamin B-12) 2,500 mcg sublingual QDAY 06/07/16 11/05/22 History 2,500 mcg sublingual tablet (Vitamin B-12) lactobac cmb #[id number] 1 cap PO QDAY 06/07/16 11/05/22 History [Probiotic and Acidophilus] multivitamin 1 each PO DAILY 06/07/16 11/05/22 History cholecalciferol (vitamin D3) 50 2,000 unit PO QDAY 01/16/19 11/05/22 History mcg (2,000 unit) capsule atorvastatin 20 mg tablet 20 mg PO QDAY 04/03/19 11/05/22 History omega-3 fatty acids 1,000 mg 1,000 mg PO QDAY 04/03/19 11/05/22 History capsule (Fish Oil Concentrate) apixaban 5 mg tablet 5 mg PO BID 09/15/20 11/05/22 History Oxygen #1 ea 10/20/20 11/05/22 Rx tamsulosin 0.4 mg capsule 0.4 mg PO QDAY #90 caps 11/09/21 11/05/22 Rx metoprolol succinate 50 mg 50 mg PO QDAY 03/18/22 11/05/22 History tablet,extended release 24 hr magnesium oxide 400 mg PO QDAY 06/09/22 11/05/22 History oxycodone 5 mg tablet 5 mg PO Q4H PRN pain #20 tabs 08/13/22 11/05/22 Rx albuterol sulfate 90 mcg/actuation 2 puff inhalation 10/21/22 11/05/22 History aerosol inhaler (Ventolin HFA) Allergies Allergy/AdvReac Type Severity Reaction Status Date / Time codeine AdvReac Mild Nausea Verified 11/06/22 02:26 EXAM Constitutional Vitals: Temp Pulse Resp BP Pulse Ox O2 Del Method O2 Flow Rate 97.7 F 111 H 20 112/68 94 4 11/06/22 04:00 11/06/22 04:00 11/06/22 04:00 11/06/22 04:00 11/06/22 07:30 11/06/22 07:30 11/06/22 07:30 Exam: General: Alert, Awake, No acute Distress Eyes/N/T: EOMI, PERRL, Head/Neck: neck supple, normocephalic atraumatic CV: RRR, No murmurs, normal s1/s2 Pulm: decrease BS b/l, no wheezing Abd:soft, +BS x4, ostomy in place with outpt Ext: no clubbing/cyanosis/edema Neuro: Alert, no focal deficits, moves all extremities, Skin: warm/dry DATA Data Completed and Pending Labs: Labs from last 24 hours 11/05/22 11/05/22 11/05/22 20:54 20:50 20:47 WBC RBC Hgb Hct POC Hct 37.0 L MCV MCH MCHC RDW Plt Count MPV Immature Gran % (Auto) Neut % (Auto) Lymph % (Auto) Bell % (Auto) Eos % (Auto) Baso % (Auto) Lymph # (Auto) Bell # (Auto) Eos # (Auto) Baso # (Auto) Immature Gran # Absolute Neutrophils POC VBG pH 7.38 POC VBG pCO2 at Temp 40.3 L POC VBG pO2 18 L POC VBG HCO3 23.7 L POC VBG Total CO2 25.0 POC Venous O2 Sat 26.0 L POC VBG Base Excess -2.0 VBG Lactic Acid 1.2 POC Sodium 140 POC Potassium 3.7 POC Chloride 107 POC Total CO2 26.0 POC BUN 26 H POC Creatinine 0.7 POC Glucose 114 H POC WB Ioniz Calcium 1.20 Total Bilirubin Direct Bilirubin AST ALT Alkaline Phosphatase Total Protein Albumin Globulin Lipase Procalcitonin 0.08 11/05/22 11/05/22 20:45 20:45 WBC 11.2 H RBC 3.79 L Hgb 11.3 L Hct 35.7 L POC Hct MCV 94.2 MCH 29.8 MCHC 31.7 RDW 16.5 H Plt Count 311 MPV 10.1 Immature Gran % (Auto) 0.4 Neut % (Auto) 87.1 H Lymph % (Auto) 5.3 L Bell % (Auto) 5.7 Eos % (Auto) 1.2 Baso % (Auto) 0.3 Lymph # (Auto) 0.59 L Bell # (Auto) 0.63 Eos # (Auto) 0.13 Baso # (Auto) 0.03 Immature Gran # 0.04 Absolute Neutrophils 9.73 H POC VBG pH POC VBG pCO2 at Temp POC VBG pO2 POC VBG HCO3 POC VBG Total CO2 POC Venous O2 Sat POC VBG Base Excess VBG Lactic Acid POC Sodium POC Potassium POC Chloride POC Total CO2 POC BUN POC Creatinine POC Glucose POC WB Ioniz Calcium Total Bilirubin 0.6 Direct Bilirubin 0.2 AST 16 ALT 10 Alkaline Phosphatase 122 H Total Protein 6.8 Albumin 3.6 Globulin 3.2 Lipase 15 Procalcitonin A/P Narrative A/P Narrative: A: *PNA (b/l): *Acute hypoxic respiratory failure: -4L oxymask *SBO: *h/o Afib w/PPM: on eliquis/BB *BPH: *COPD (O2@night): P: -Abx, pending BC/SC -prn Nebs, IS/Acapella, RT -Dr. Cohen for SBO -diet per surgery -Monitor and replace electrolytes -IVF, -IV lopressor while npo -pt/ot -Home medication reconciliation -ppx: SCD (hold apixaban until seen by surgery) / ppi Time Spent With Patient Time: Total time spent is greater than 50% in coordination of care (as documented) at patient's floor/unit and/or counseling patient: Total time spent with greater than 50% in coordination of care (as documented) at patient's floor/unit and/or counseling patient:: Greater than 70 minutes
[2022-11-06] MEDS: DOCUSATE SODIUM 100 MG CAPSULE PO SCH ×2 (08:16→20:21)
[2022-11-06] MEDS ORDERED: ACETAMINOPHEN 325 MG TABLET PO PRN (08:24)
[2022-11-06] MEDS ORDERED: HYDROcodone/APAP 5/325MG TABLET PO PRN (08:24)
[2022-11-06] MEDS ORDERED: POTASSIUM CHLORIDE 20 MEQ TABLET PO PRN ×2 (08:24)
[2022-11-06] MEDS ORDERED: MAGNESIUM SULFATE 2 GM/50 ML BAG IV PRN (08:24)
[2022-11-06] MEDS ORDERED: POTASSIUM CHLORIDE 40 MEQ in DEXTROSE 5% IN WATER 500 ML IV PRN (08:24)
[2022-11-06] MEDS ORDERED: METOPROLOL TARTRATE 5 MG/5 ML VIAL IV PRN (08:30)
[2022-11-06] MEDS: METOPROLOL TARTRATE 5 MG/5 ML VIAL IV SCH ×2 (09:22→14:25)
[2022-11-06] MEDS: PIPERACILLIN SODIUM/TAZOBACTAM 3.375 GM in DEXTROSE 5% IN WATER 50 ML IV SCH ×3 (09:22→17:48)
[2022-11-06 09:46] LABS: Basophils # (Auto) 0.02 K/mcL (0.00-0.30); Basophils % (Auto) 0.2 % (0.0-2.0); Eosinophils # (Auto) 0.01 K/mcL (0.00-0.70); Eosinophils % (Auto) 0.1 % (0.0-7.0); Hematocrit 35.6 % (40.1-51.0); Hemoglobin 11.4 g/dL (13.7-17.5); Lymphocytes # (Auto) 0.27 K/mcL (1.50-4.80); Lymphocytes % (Auto) 3.4 % (15.5-49.0); Mean Platelet Volume 9.8 fL (8.8-12.5); Monocytes # (Auto) 0.76 K/mcL (0.10-0.90); Monocytes % (Auto) 9.5 % (1.0-12.0); Neutrophils % (Auto) 86.6 % (38.0-78.0); Platelet Count 314 K/mcL (140-440); RBC 3.83 M/mcL (4.63-6.08); Red Cell Distribution Width 16.4 % (11.5-14.5)
[2022-11-06 10:04] LABS: INR 1.2 (0.9-1.1); Prothrombin Time 15.4 sec (11.9-14.5)
[2022-11-06 10:04] LABS: ALT/SGPT 10 U/L (<40); AST/SGOT 10 U/L (<40); Albumin 3.5 gm/dL (3.2-5.2); Albumin/Globulin Ratio 1.2 (1.0-2.3); Alkaline Phosphatase 107 U/L (39-117); Bilirubin,Direct 0.2 mg/dL (<0.3); Bilirubin,Total 0.7 mg/dL (0.1-1.0); Blood Urea Nitrogen 23 mg/dL (8-23); Calcium 8.9 mg/dL (8.6-10.4); Carbon Dioxide 24 mmol/L (22-30); Chloride 104 mmol/L (96-108); Glomerular Filtration Rate 85; Glucose 122 mg/dL (70-105); Lactate Dehydrogenase 176 U/L (135-225); Phosphorous 3.2 mg/dL (2.5-4.5); Triglycerides 55 mg/dL (<150); Uric Acid 3.9 mg/dL (2.5-8.0)
[2022-11-06] MEDS ORDERED: PROMETHAZINE 25 MG/ML VIAL IV PRN (11:33)
[2022-11-06 12:04] LABS: Appearance,Urine CLEAR (Clear); Bilirubin,Urine Negative (Negative); Color,Urine YELLOW; Culture Indicated,Urine No; Glucose,Urine (UA) Negative (Negative); Ketones,Urine 20 mg/dL (Negative); Leukocyte Esterase,Urine Negative /uL (Negative); Nitrate,Urine Negative (Negative); Protein,Urine Negative (Negative); Specific Gravity,Urine 1.051 (1.000-1.035); Urine Blood Negative (Negative); Urobilinogen,Urine Negative
--- NOTE | 2022-11-06 12:32 | XRay Report ---
CLINICAL INFORMATION: f/u of small bowel obstruction COMPARISON: 5 mm 10/08/2022 FINDINGS: The stomach and proximal/mid small bowel are moderately dilated with air-fluid levels. Distal small bowel and colon are decompressed. No free air. Aortobiiliac endograft appears unremarkable. Moderate patchy bibasilar infiltrates noted. IMPRESSION: High-grade mid small bowel obstruction Interpreted and Authenticated by: Sai Casper 11/06/22
--- NOTE | 2022-11-06 13:35 | General Surgery Consult Note ---
HPI Date of Consult Consult Date: 11/06/22 Requesting physician: Rambo Siegel Primary Care Provider: Sai Elizabeth DO Consult Narrative Patient Information: Note initiated : 11/06/22 at 1:35 pm Service Date, if different from initiated Date: [] Patient: Fei Rodrigues 86 y/o M admitted on 11/06/22 for abdominal pain. Chief Complaint: [] Chief complaint: Increasing abdominal pain with nausea; acute shortness of breath with hypox Reason for consult: Partial small bowel obstruction cc:: CC: Ranjeet Saravia 86-year-old male who was admitted earlier this morning after evaluation in the emergency room. The patient presented with increasing abdominal pain with progressive shortness of breath. He had nausea without vomiting. He states that he had a small amount of soft stool in his stoma but had the feeling as if he was obstructed. CT of chest and abdomen were done. CT of the chest showed right middle lobe and left lower lobe infiltrates and CT of the abdomen shows suspicious findings for intestinal obstruction of the small bowel. Review of the abdominal CT shows increased gas and stool in the colon. Since admission the patient has had 2 very large volume output through his stoma. He has less abdominal pain. He is being treated by medical staff for his pneumonitis and is white blood count has decreased from 11.2-8. He will be treated nonoperatively and will have follow-up x-rays in the morning. Constitutional Constitutional: Present fatigue, lethargy, malaise, weakness and weight loss Respiratory Respiratory: Present cough, dyspnea on exertion, chest congestion and excessive phlegm production Gastrointestinal Gastrointestinal: Present abdominal pain, change in bowel habits, change in stool character, constipation, cramping, heartburn and nausea; Absent vomiting Genitourinary Genitourinary: nocturia, urinary frequency, urinary hesitancy and urinary urgency Hematologic/Lymphatic Hematologic/Lymphatic: Absent easy bleeding, easy bruising or lymphadenopathy Allergic/Immunologic Allergic/Immunologic: Absent tongue swelling, throat swelling, uticaria, wheezing or lip swelling PFSH PFSH All Active Problems (Updated 11/06/22 @ 13:44 by Wesley Cohen MD) History of intestinal obstruction (Acute) Adynamic ileus (Acute) Pneumonia (Acute) Bowel obstruction (Acute) Pneumonia (Acute) Small bowel obstruction (Acute) Hypoxia (Acute) Exertional dyspnea (Acute) Partial obstruction of small intestine (Acute) Dehydration (Acute) Pneumonia (Acute) C. difficile diarrhea (Acute) Complete obstruction of small intestine (Acute) Anemia, normocytic normochromic (Acute) Atrial fibrillation (Acute) Colon perforation (Acute) Nausea (Acute) Tingling sensation (Acute) Hemarthrosis of knee, right (Acute) Knee injury (Acute) Unstable right knee (Acute) Pain and swelling of right knee (Acute) Medicare annual wellness visit, initial (Acute) PAF (paroxysmal atrial fibrillation) (Chronic) Sinus node dysfunction (Chronic) Nonsustained ventricular tachycardia (Chronic) Lower urinary obstructive symptom (Chronic) BPH w urinary obs/LUTS (Chronic) Diarrhea (Chronic) Closed rib fracture (Acute) CAD (coronary artery disease) (Chronic) Ventricular tachycardia (Acute) Syncope, near (Acute) Hearing loss (Chronic) Cataracts, bilateral (Chronic) Vertigo (Chronic) Malignant neoplasm of bronchus and lung, unspecified site (Chronic) Positional vertigo (Acute) Presence of cardiac pacemaker (Chronic) Bilateral hydrocele (Chronic) Malignant neoplasm of lung (Chronic) Bruit of left carotid artery (Chronic) Weight loss (Chronic) Vasovagal syncope (Chronic 12/18/05) Acute sinusitis (Chronic 02/05/14) Schatzki's ring (Chronic) Lymphadenopathy (Chronic) Peripheral vascular disease (Chronic) Osteoporosis (Chronic) Osteoarthritis (Chronic) Onychomycosis (Chronic) Obstructive uropathy (Chronic) Lichen planus (Chronic) Right inguinal pain (Chronic) Accelerated idioventricular rhythm (Chronic) Nocturnal hypoxemia (Chronic) Hypotension (Chronic) Hyperlipidemia (Chronic) Hydrocele (Chronic 11/29/13) Hammer toe (Chronic) Family history of stress (Chronic) Esophagitis (Chronic) Enlarged prostate (Chronic) Dyspnea (Chronic) Dysphagia (Chronic 11/29/13) Dupuytren's contracture (Chronic) Depression (Chronic) Colon adenoma (Chronic) COPD (chronic obstructive pulmonary disease) (Chronic) Chronic bronchitis (Chronic) Bradycardia (Chronic 12/18/05) Low back pain (Chronic 12/24/06) Actinic keratosis (Chronic) Anemia (Chronic) Abdominal aortic aneurysm (AAA) (Chronic) Medical History Abdominal aortic aneurysm (AAA) Aortic endograft Accelerated idioventricular rhythm Actinic keratosis Acute sinusitis (02/05/14) Anemia BPH w urinary obs/LUTS Improved greatly with Flomax 0.4 mg daily. Bradycardia (12/18/05) Sinus of unknown origina Chronic bronchitis Closed fracture of wrist 10/10 right Closed hip fracture left Closed skull fracture (12/18/05) fell and hit head on the toilet, passed out. Colon adenoma 2004 COPD (chronic obstructive pulmonary disease) Depression Diarrhea Dupuytren's contracture Dysphagia (11/29/13) recurrent Dyspnea Enlarged prostate Esophagitis H/O Family history of stress Gastritis Hammer toe Right second and third toes History of blood transfusion 2 units History of ECG (09/30/15) History of echocardiogram 06/03/15 - [facility]. 03/29/19 - [place] [facility]. History of pacemaker (06/20/10) BIOTRONIK MODEL [id number] History of tobacco abuse Stopped Hydrocele (11/29/13) Bilateral large, left greater than right Hyperlipidemia Now on atorvastatin at 20 mg each day Hypotension Beta-aniyah added Lichen planus Low back pain (12/24/06) Lower urinary obstructive symptom Denies history of BPH or urinary obstructive symptoms. States symptoms just started about 6 months ago. Prostate only 2+ today and nontender. Smooth with no nodules. AUA score is 18 today and he has mixed quality of life due to his symptoms. We will check PSA. We will get urine sample with next set of pelvic pain. Lymphadenopathy Perililar. H/O. Malignant neoplasm of bronchus and lung, unspecified site 2011 non-small cell carcinoma Medicare annual wellness visit, initial Nocturnal hypoxemia Overnight pulse ox from August 2020 shows O2 sats <88% for 56 minutes total overnight. Nonsustained ventricular tachycardia Obstructive uropathy Onychomycosis Osteoarthritis Osteoporosis Peripheral vascular disease Asymptomatic, but abnormal MAGALY -0.43 on the right Arterial duplex of bilateral lower extremities ordered Continue statin. Not on aspirin due to being anticoagulated. Right inguinal pain Schatzki's ring Sinus node dysfunction Pacemaker Squamous cell carcinoma lung Vasovagal syncope (12/18/05) and collapse Weight loss Surgical History History of biopsy (09/15/07) right flank lesion History of bronchoscopy (06/01/12) History of colonoscopy (09/06/13) Two polypoid fragments of colonic mucosa with minimal surface hyperplastic change History of esophagogastroduodenoscopy (EGD) (09/07/11) 09/07/11 MICRO: CHRONIC GASTRITIS WITH INTESTINAL METAPLASIA AND FOCAL ACUTE INFLAMMATION. CONSULT: SCHATZKI'S RING, SMALL HIATAL HERNIA, GASTRITIS. 06/30/16 Schatzki's ring dilated and Egan's esophagus. History of exploratory laparotomy 08/03/2022-1. Exploratory laparotomy with resection of sigmoid perforation. 2. End colostomy. 3. Washout and drainage History of lobectomy of lung History of lobectomy of lung 06/11 RIGHT LOWER LOBE followed by chemotherapy History of lung biopsy (05/02/12) History of surgery (06/01/12) Mediastinoscopy History of thoracotomy (06/01/12) RIGHT LOWER LOBE WAS RESECTED THRU A LIMITED RIGHT THORACOTOMY History of tonsillectomy S/P AAA repair (~2012) Status post-operative repair of closed fracture of left hip 2009 hemiarthroplasty Family History Mother , age 76 Diabetes mellitus Heart disease Father , age 61 Heart disease Peptic ulcer Brother CAD (coronary artery disease) Social History household members: spouse housing: house lives independently: Yes marital status: occupational status: retired smoking status: Former smoker alcohol intake frequency: 0-2 drinks per day substance use type: does not use MEDS/ALLERGIES Home Medications and Allergies Home Medications Medication Instructions Recorded Confirmed Type acetaminophen 325 mg tablet 650 mg PO QDAY PRN Pain 06/07/16 11/05/22 History (Tylenol) calcium carbonate 500 mg-vitamin 1 tab PO QDAY 06/07/16 11/05/22 History D3 15 mcg (600 unit) tablet cyanocobalamin (vitamin B-12) 2,500 mcg sublingual QDAY 06/07/16 11/05/22 History 2,500 mcg sublingual tablet (Vitamin B-12) lactobac cmb #[id number] 1 cap PO QDAY 06/07/16 11/05/22 History [Probiotic and Acidophilus] multivitamin 1 each PO DAILY 06/07/16 11/05/22 History cholecalciferol (vitamin D3) 50 2,000 unit PO QDAY 01/16/19 11/05/22 History mcg (2,000 unit) capsule atorvastatin 20 mg tablet 20 mg PO QDAY 04/03/19 11/05/22 History omega-3 fatty acids 1,000 mg 1,000 mg PO QDAY 04/03/19 11/05/22 History capsule (Fish Oil Concentrate) apixaban 5 mg tablet 5 mg PO BID 09/15/20 11/05/22 History Oxygen #1 ea 10/20/20 11/05/22 Rx tamsulosin 0.4 mg capsule 0.4 mg PO QDAY #90 caps 11/09/21 11/05/22 Rx metoprolol succinate 50 mg 50 mg PO QDAY 03/18/22 11/05/22 History tablet,extended release 24 hr magnesium oxide 400 mg PO QDAY 06/09/22 11/05/22 History oxycodone 5 mg tablet 5 mg PO Q4H PRN pain #20 tabs 08/13/22 11/05/22 Rx albuterol sulfate 90 mcg/actuation 2 puff inhalation 10/21/22 11/05/22 History aerosol inhaler (Ventolin HFA) Allergies Allergy/AdvReac Type Severity Reaction Status Date / Time codeine AdvReac Mild Nausea Verified 11/06/22 02:26 Physical Examination Vital Signs Vital signs: Temp Pulse Resp BP Pulse Ox O2 Del Method O2 Flow Rate 97.8 F 105 H 20 104/71 90 4 11/06/22 12:00 11/06/22 12:00 11/06/22 12:11/06/22 12:11/06/22 12:11/06/22 12:11/06/22 12:00 General physical appearance General physical exam: no distress, no pain, cachectic and chronically ill Eyes Eye exam: PERRL and normal ocular movement ENT ENT exam: normal pinna, normal nares, normal mucosa and decreased hearing Head Head exam IM: Present atraumatic, normal inspection and normocephalic Neck Neck exam: no masses, no bruits, trachea midline, no lymphadenopathy and no venous distension Cardiovascular Cardiovascular exam IM: Present normal rate and rhythm, RRR, +S1 and +S2; Absent JVD Respiratory Respiratory exam: normal expansion, normal respiratory effort and other (Decreased breath sounds both lung soler) Abdomen Abdomen: Present soft, non tender and bowel sounds (Good active bowel sounds; stoma left lower quadrant with stoma appliance full of stool) Integumentary Integumentary: Present no rash, no growths and no abnormal pigmentation Neurologic Neurologic: Present normal coordination and normal sensation Musculoskeletal Musculoskeletal: Present normal gait and normal posture Psychiatric Psychiatric: Present oriented to time, oriented to person, oriented to place, speech is normal and memory intact Results Labs Result diagrams: 11/06/22 08:54 11/06/22 08:54 Labs: Abnormal lab results 11/05/22 11/05/22 11/05/22 Range/Units 20:45 20:45 20:50 WBC 11.2 H (4.5-11.0) K/mcL RBC 3.79 L (4.63-6.08) M/mcL Hgb 11.3 L (13.7-17.5) g/dL Hct 35.7 L (40.1-51.0) % POC Hct 37.0 L (41-55) RDW 16.5 H (11.5-14.5) % Neut % (Auto) 87.1 H (38.0-78.0) % Lymph % (Auto) 5.3 L (15.5-49.0) % Lymph # (Auto) 0.59 L (1.50-4.80) K/mcL Absolute Neutrophils 9.73 H (1.80-8.00) K/mcL PT (11.9-14.5) sec INR (0.9-1.1) POC VBG pCO2 at Temp (41-51) POC VBG pO2 (25-40) POC VBG HCO3 (24-28) POC Venous O2 Sat (40-70) POC BUN 26 H (6-20) Glucose (70-105) mg/dL POC Glucose 114 H (70-105) Alkaline Phosphatase 122 H (39-117) U/L Urine Ketones (Negative) mg/dL 11/05/22 11/06/22 11/06/22 Range/Units 20:54 08:30 08:54 WBC (4.5-11.0) K/mcL RBC 3.83 L (4.63-6.08) M/mcL Hgb 11.4 L (13.7-17.5) g/dL Hct 35.6 L (40.1-51.0) % POC Hct (41-55) RDW 16.4 H (11.5-14.5) % Neut % (Auto) 86.6 H (38.0-78.0) % Lymph % (Auto) 3.4 L (15.5-49.0) % Lymph # (Auto) 0.27 L (1.50-4.80) K/mcL Absolute Neutrophils (1.80-8.00) K/mcL PT 15.4 H (11.9-14.5) sec INR 1.2 H (0.9-1.1) POC VBG pCO2 at Temp 40.3 L (41-51) POC VBG pO2 18 L (25-40) POC VBG HCO3 23.7 L (24-28) POC Venous O2 Sat 26.0 L (40-70) POC BUN (6-20) Glucose (70-105) mg/dL POC Glucose (70-105) Alkaline Phosphatase (39-117) U/L Urine Ketones (Negative) mg/dL 11/06/22 11/06/22 Range/Units 08:54 11:00 WBC (4.5-11.0) K/mcL RBC (4.63-6.08) M/mcL Hgb (13.7-17.5) g/dL Hct (40.1-51.0) % POC Hct (41-55) RDW (11.5-14.5) % Neut % (Auto) (38.0-78.0) % Lymph % (Auto) (15.5-49.0) % Lymph # (Auto) (1.50-4.80) K/mcL Absolute Neutrophils (1.80-8.00) K/mcL PT (11.9-14.5) sec INR (0.9-1.1) POC VBG pCO2 at Temp (41-51) POC VBG pO2 (25-40) POC VBG HCO3 (24-28) POC Venous O2 Sat (40-70) POC BUN (6-20) Glucose 122 H (70-105) mg/dL POC Glucose (70-105) Alkaline Phosphatase (39-117) U/L Urine Ketones 20 A (Negative) mg/dL Diabetes panel 11/05/22 11/06/22 Range/Units 20:45 08:54 Sodium 137 (133-145) mmol/L Potassium 4.5 (3.3-5.1) mmol/L Chloride 104 (96-108) mmol/L Carbon Dioxide 24 (22-30) mmol/L BUN 23 (8-23) mg/dL Creatinine 0.7 (0.7-1.2) mg/dL Glucose 122 H (70-105) mg/dL Calcium 8.9 (8.6-10.4) mg/dL AST 16 10 (<40) U/L ALT 10 10 (<40) U/L Alkaline Phosphatase 122 H 107 (39-117) U/L Total Protein 6.8 6.5 (5.9-8.4) gm/dL Albumin 3.6 3.5 (3.2-5.2) gm/dL Triglycerides 55 (<150) mg/dL Calcium panel 11/05/22 11/06/22 Range/Units 20:45 08:54 Calcium 8.9 (8.6-10.4) mg/dL Phosphorus 3.2 (2.5-4.5) mg/dL Albumin 3.6 3.5 (3.2-5.2) gm/dL Pituitary panel 11/06/22 Range/Units 08:54 Sodium 137 (133-145) mmol/L Potassium 4.5 (3.3-5.1) mmol/L Chloride 104 (96-108) mmol/L Carbon Dioxide 24 (22-30) mmol/L BUN 23 (8-23) mg/dL Creatinine 0.7 (0.7-1.2) mg/dL Glucose 122 H (70-105) mg/dL Calcium 8.9 (8.6-10.4) mg/dL Adrenal panel 11/05/22 11/06/22 Range/Units 20:45 08:54 Sodium 137 (133-145) mmol/L Potassium 4.5 (3.3-5.1) mmol/L Chloride 104 (96-108) mmol/L Carbon Dioxide 24 (22-30) mmol/L BUN 23 (8-23) mg/dL Creatinine 0.7 (0.7-1.2) mg/dL Glucose 122 H (70-105) mg/dL Calcium 8.9 (8.6-10.4) mg/dL Total Bilirubin 0.6 0.7 (0.1-1.0) mg/dL AST 16 10 (<40) U/L ALT 10 10 (<40) U/L Alkaline Phosphatase 122 H 107 (39-117) U/L Total Protein 6.8 6.5 (5.9-8.4) gm/dL Albumin 3.6 3.5 (3.2-5.2) gm/dL All other labs normal. A/P Assessment and plan (1) Adynamic ileus: Status: Acute (2) History of intestinal obstruction: Status: Acute (3) Pneumonia: Status: Acute (4) Hypoxia: Status: Acute (5) Atrial fibrillation: Status: Acute (6) CAD (coronary artery disease): Status: Chronic Comment: Mild to moderate nonobstructive CAD on left heart cath in [place] Qualifiers: Coronary Disease-Associated Artery/Lesion type: hughes artery [place] vs. transplanted heart: hughes heart Associated angina: without angina Qualified Code(s): I25.10 - Atherosclerotic heart disease of hughes coronary artery without angina pectoris Plan Patient's pneumonitis is being treated by hospitalist staff He has more adynamic ileus rather than obstruction and this will be treated accordingly He should not need operative therapy Will get follow-up x-rays in the morning Time Spent With Patient Time: Total time spent is greater than 50% in coordination of care (as documented) at patient's floor/unit and/or counseling patient:
[2022-11-06] MEDS: METOCLOPRAMIDE 10 MG/2 ML VIAL IV SCH (17:47)
[2022-11-06] MEDS ORDERED: 0.9 % SODIUM CHLORIDE 500 ML IV ONE (19:15)
[2022-11-06] MEDS: SENNOSIDES 1 TABLET PO SCH (20:21)
[2022-11-07] MEDS: METOCLOPRAMIDE 10 MG/2 ML VIAL IV SCH ×5 (00:02→23:37)
[2022-11-07] MEDS: PIPERACILLIN SODIUM/TAZOBACTAM 3.375 GM in DEXTROSE 5% IN WATER 50 ML IV SCH ×5 (00:02→23:37)
[2022-11-07] MEDS: LACTATED RINGERS 1,000 ML IV SCH (03:47)
[2022-11-07] MEDS: 0.9 % SODIUM CHLORIDE 10 ML SYRINGE IV SCH ×3 (05:20→21:15)
[2022-11-07 06:24] LABS: Hematocrit 32.9 % (40.1-51.0); Hemoglobin 10.2 g/dL (13.7-17.5); Mean Cell Volume 96.2 fL (80.0-100.0); Mean Platelet Volume 10.2 fL (8.8-12.5); Platelet Count 281 K/mcL (140-440); RBC 3.42 M/mcL (4.63-6.08); Red Cell Distribution Width 16.6 % (11.5-14.5); WBC 5.6 K/mcL (4.5-11.0)
[2022-11-07 06:46] LABS: ALT/SGPT 7 U/L (<40); AST/SGOT 9 U/L (<40); Albumin/Globulin Ratio 1.2 (1.0-2.3); Alkaline Phosphatase 82 U/L (39-117); Bilirubin,Direct 0.2 mg/dL (<0.3); Bilirubin,Total 0.5 mg/dL (0.1-1.0); Blood Urea Nitrogen 15 mg/dL (8-23); Calcium 8.6 mg/dL (8.6-10.4); Carbon Dioxide 23 mmol/L (22-30); Chloride 110 mmol/L (96-108); Globulin 2.6 gm/dL (2.2-3.7); Glomerular Filtration Rate 80; Glucose 85 mg/dL (70-105); Lactate Dehydrogenase 148 U/L (135-225); Phosphorous 2.6 mg/dL (2.5-4.5); Triglycerides 62 mg/dL (<150); Uric Acid 2.6 mg/dL (2.5-8.0)
[2022-11-07 07:26] LABS: Anisocytosis 1+ (None Seen); Eosinophils % (Manual) 3 % (0-7); Hypochromasia 1+ (None Seen); Lymphocytes % 11 % (15-49); Monocytes % (Manual) 12 % (1-12); Platelet Estimate NORMAL (Normal); RBC Morphology ABNORMAL (Normal); Segmented Neutrophils % 74 % (38-78)
--- NOTE | 2022-11-07 07:53 | Internal Med Progress Note ---
SUBJECTIVE Subjective Patient information: Note initiated : 11/07/22 at 7:49 am Service Date, if different from initiated Date: [] Patient: Fei Rodrigues 86 y/o M admitted on 11/06/22 for abdominal pain. Chief Complaint: [] Interval history: History of present illness: Mr. Rodrigues is a 86 year old M Presents ED with abdominal pain as well as nausea vomiting patient also had a recent bowel obstruction. In the ED was found to have pneumonia and small bowel obstruction. He was last here the beginning of September for a bowel obstruction. He also presented in July with a bowel perforation after colonoscopy and underwent ex lap lap With sigmoid resection and colostomy Dr. Cohen was contacted for the bowel obstruction. Per the patient has abdominal pain about increasing throughout the day including increasing shortness of breath. Patient wears 2 L of oxygen at night but wore all day due low O2 sats. His shortness of breath is not particularly feel worse than usual. also had nausea with the abdominal pain. And has a cough for the past couple days. Patient was 80% on arrival room air oxygen. Chest x-ray that significant right lower lobe infiltrate as well as left lower lobe. CT abdomen pelvis with small bowel obstruction. 11/07 Patient on 3 to 4 L oxygen mask. Has a cough denies shortness of breath. Tolerating clear liquid diet. Leukocytosis resolved. Review of Systems: denies headache/fever/chills/nausea/vomiting/chest or abdominal pain/. Otherwise see above. Constitutional Vitals: Vital Signs Temp Pulse Resp BP Pulse Ox O2 Del Method O2 Flow Rate 97.5 F 112 H 18 85/52 93 4 11/07/22 07:32 11/07/22 07:32 11/07/22 07:32 11/07/22 07:32 11/07/22 07:32 11/07/22 07:32 11/07/22 07:32 Period Temp Pulse Resp BP Sys/[place] Pulse Ox O2 Del Method O2 Flow Rate Last 24 Hr 97.5 F-99.5 F 90-112 16-24 80-116/52-74 90-94 Oxymask-Oxymask 3-4 Intake and Output 11/06/22 11/07/22 11/07/22 19:59 03:59 11:59 Intake Total 1371 1185 50 Output Total 2150 325 Balance -779 860 50 Weight 61.326 kg Intake & Output: Intake & Output 11/06/22 11/07/22 11/07/22 19:59 03:59 11:59 Intake Total 1371 1185 50 Output Total 2150 325 Balance -779 860 50 Weight 61.326 kg Intake: IV 1001 975 50 Sodium Chloride 0.9% 500 ml @ 500 Wide Open IV BOLUS ONE Rx#: [id number] Lactated Ringers 1,000 ml @ 75 901 425 mls/hr IV .[id number] [facility] Rx#: [id number] Zosyn 3.375 gm In Dextrose 5% 100 50 50 in Water 50 ml @ 100 mls/hr IV Q6H [facility] Rx#:[id number] Oral 250 210 GI Tube Flush 120 Output: Void Amount 350 225 Stool 1800 100 Other: Meal Dinner Feeding Ability Assist with Tray Set Up Urine Appearance Clear Urine Color Dark Yellow Dark Yellow Urine Odor Normal Stool Size Large Stool Color Brown Brown Stool Consistency Loose Liquid # Bowel Movements 1 Exam: General: Alert, Awake, No acute Distress Eyes/N/T: EOMI, Head/Neck: neck supple, CV: RRR, No murmurs, Pulm: decrease BS b/l, right base rales, no wheezing Abd:soft, decreased BS x4, ostomy in place with outpt Ext: no clubbing/cyanosis/edema Neuro: Alert, no focal deficits, moves all extremities, Skin: warm/dry OBJ DATA Labs CBC & Chem 7: 11/07/22 05:25 11/07/22 05:24 Labs: Abnormal Lab Results 11/07/22 11/07/22 11/06/22 05:25 05:24 11:00 WBC RBC 3.42 L Hgb 10.2 L Hct 32.9 L POC Hct RDW 16.6 H Neut % (Auto) Lymph % (Auto) Lymph # (Auto) Lymphocytes % 11 L Absolute Neutrophils RBC Morphology Abnormal A Hypochromasia 1+ A Anisocytosis 1+ A PT INR POC VBG pCO2 at Temp POC VBG pO2 POC VBG HCO3 POC Venous O2 Sat Chloride 110 H Anion Gap 7.0 L POC BUN Glucose POC Glucose Alkaline Phosphatase Total Protein 5.6 L Albumin 3.0 L Urine Ketones 20 A 11/06/22 11/06/22 11/06/22 08:54 08:54 08:30 WBC RBC 3.83 L Hgb 11.4 L Hct 35.6 L POC Hct RDW 16.4 H Neut % (Auto) 86.6 H Lymph % (Auto) 3.4 L Lymph # (Auto) 0.27 L Lymphocytes % Absolute Neutrophils RBC Morphology Hypochromasia Anisocytosis PT 15.4 H INR 1.2 H POC VBG pCO2 at Temp POC VBG pO2 POC VBG HCO3 POC Venous O2 Sat Chloride Anion Gap POC BUN Glucose 122 H POC Glucose Alkaline Phosphatase Total Protein Albumin Urine Ketones 11/05/22 11/05/22 11/05/22 20:54 20:50 20:45 WBC RBC Hgb Hct POC Hct 37.0 L RDW Neut % (Auto) Lymph % (Auto) Lymph # (Auto) Lymphocytes % Absolute Neutrophils RBC Morphology Hypochromasia Anisocytosis PT INR POC VBG pCO2 at Temp 40.3 L POC VBG pO2 18 L POC VBG HCO3 23.7 L POC Venous O2 Sat 26.0 L Chloride Anion Gap POC BUN 26 H Glucose POC Glucose 114 H Alkaline Phosphatase 122 H Total Protein Albumin Urine Ketones 11/05/22 20:45 WBC 11.2 H RBC 3.79 L Hgb 11.3 L Hct 35.7 L POC Hct RDW 16.5 H Neut % (Auto) 87.1 H Lymph % (Auto) 5.3 L Lymph # (Auto) 0.59 L Lymphocytes % Absolute Neutrophils 9.73 H RBC Morphology Hypochromasia Anisocytosis PT INR POC VBG pCO2 at Temp POC VBG pO2 POC VBG HCO3 POC Venous O2 Sat Chloride Anion Gap POC BUN Glucose POC Glucose Alkaline Phosphatase Total Protein Albumin Urine Ketones Meds: Medications Acetaminophen (Acetaminophen 325 Mg Tablet) 650 mg PO Q6HP PRN; Protocol PRN Reason: Per Pain Protocol/Fever > 101 Last Admin: 11/07/22 03:46 Dose: 650 mg Hydrocodone Bitart/Acetaminophen (Hydrocodone/Apap 5/325mg Tablet) 1 tab PO Q4HP PRN PRN Reason: PAIN LEVEL 3-6 Albuterol/Ipratropium (Ipratropium/Albuterol 3 Ml Ampul.Neb) 3 ml NEB Q4HP PRN PRN Reason: Shortness Of Breath Docusate Sodium (Docusate Sodium 100 Mg Capsule) 100 mg PO BID [facility]LIN Last Admin: 11/06/22 20:21 Dose: 100 mg Hydromorphone HCl (Hydromorphone 0.5 Mg/0.5 Ml Syringe) 0.5 mg IV Q2HP PRN; Protocol PRN Reason: Per Pain Protocol Lactated Ringer's (Lactated Ringers) 1,000 mls @ 75 mls/hr IV .[id number] [facility] Last Admin: 11/07/22 03:47 Dose: Not Given Potassium Chloride 40 meq/ (Dextrose) 520 mls @ 130 mls/hr IV UD PRN PRN Reason: Potassium < 3 Magnesium Sulfate (Magnesium Sulfate) 2 gm in 50 mls @ 50 mls/hr IV UD PRN PRN Reason: Magnesium </= 1.6 Piperacillin Sod/Tazobactam (Sod 3.375 gm/ Dextrose) 50 mls @ 100 mls/hr IV Q6H [facility]; Protocol Last Infusion: 11/07/22 06:20 Dose: Infused Metoclopramide HCl (Metoclopramide 10 Mg/2 Ml Vial) [address] [facility] Last Admin: 11/07/22 05:20 Dose: 10 mg Metoprolol Tartrate (Metoprolol Tartrate 5 Mg/5 Ml Vial) 5 mg IV Q2HP PRN PRN Reason: Tachyarrhythmias HR>110 Ondansetron HCl (Ondansetron 4 Mg/2 Ml Vial) 4 mg IV Q4HP PRN PRN Reason: Nausea And Vomiting Pantoprazole Sodium (Pantoprazole 40 Mg Vial) [address] [facility] Polyethylene Glycol (Polyethylene Glycol 3350 17 Gm Packet) [address] [facility] Potassium Chloride (Potassium Chloride 20 Meq Tablet) 40 meq PO UD PRN PRN Reason: Potssium is 3-3.5 Potassium Chloride (Potassium Chloride 20 Meq Tablet) 40 meq PO UD PRN PRN Reason: Potassium < 3 Promethazine HCl (Promethazine 25 Mg/Ml Vial) 12.5 mg IV Q4HP PRN PRN Reason: Nausea And Vomiting Senna (Sennosides 1 Tablet) [address] [facility] Last Admin: 11/06/22 20:21 Dose: 2 tab Sodium Chloride (0.9 % Sodium Chloride 10 Ml Syringe) [address] [facility] Last Admin: 11/07/22 05:20 Dose: Not Given A/P Narrative A/P Narrative: A: *PNA (b/l): *Acute hypoxic respiratory failure: -3-4L oxymask *COPD (2L O2@night): *Adynamic ileus vs less likely pSBO: *h/o Afib w/PPM: on eliquis/BB *BPH: *Low BP: pt states BP runs low normally P: -Abx, pending BC/SC -prn Nebs, IS/Acapella, RT -Dr. Cohen for SBO -diet per surgery -Monitor and replace electrolytes -IVF, -f/u CXR in am -start home po BB and lower dose give soft BP -pt/ot -Home medication reconciliation -ppx: SCD (hold apixaban until seen by surgery) / ppi Time Spent With Patient Time: Total time spent is greater than 50% in coordination of care (as documented) at patient's floor/unit and/or counseling patient: Total time spent with greater than 50% in coordination of care (as documented) at patient's floor/unit and/or counseling patient:: 35 - 50 minutes
[2022-11-07] MEDS: PANTOPRAZOLE 40 MG VIAL IV SCH (08:35)
[2022-11-07] MEDS: POLYETHYLENE GLYCOL 3350 17 GM PACKET PO SCH (08:35)
[2022-11-07] MEDS: DOCUSATE SODIUM 100 MG CAPSULE PO SCH ×2 (08:35→21:13)
[2022-11-07] MEDS: 0.45 % SODIUM CHLORIDE 1,000 ML IV SCH ×2 (08:35→22:30)
--- NOTE | 2022-11-07 09:51 | EKG ---
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
[2022-11-07] MEDS: METOPROLOL SUCCINATE 25 MG TAB.XL.24H PO SCH (11:37)
--- NOTE | 2022-11-07 12:55 | General Surgery Progress Note ---
SUBJECTIVE Subjective Patient information: Note initiated : 11/07/22 at 12:51 pm Service Date, if different from initiated Date: [] Patient: Fei Rodrigues 86 y/o M admitted on 11/06/22 for abdominal pain. Chief Complaint: [] Principal diagnosis: Partial bowel obstruction Interval history: Patient continues to improve. He had bowel movements throughout the night and is much improved at this time. He is tolerating full liquid diet. Abdominal x- ray shows diffuse bowel gas pattern suggestive of ileus rather than obstruction. White blood count 5.6, hemoglobin 10.2; BUN 15, creatinine 0.8 Constitutional Vitals: Vital Signs Temp Pulse Resp BP Pulse Ox O2 Del Method O2 Flow Rate 97.8 F 96 H 18 104/62 93 1 11/07/22 11:21 11/07/22 11:21 11/07/22 11:21 11/07/22 11:21 11/07/22 11:21 11/07/22 11:21 11/07/22 11:21 Period Temp Pulse Resp BP Sys/Lovell Pulse Ox O2 Del Method O2 Flow Rate Last 24 Hr 97.5 F-98.9 F 92-112 16-20 80-104/52-69 90-94 Nasal Cannula- Oxymask 1-4 Intake and Output 11/07/22 11/07/22 11/07/22 03:59 11:59 19:59 Intake Total 1185 1050 50 Output Total 325 Balance 860 1050 50 Intake & Output: Intake & Output 11/07/22 11/07/22 11/07/22 03:59 11:59 19:59 Intake Total 1185 1050 50 Output Total 325 Balance 860 1050 50 Intake: IV 975 1050 50 Sodium Chloride 0.9% 500 ml @ 500 Wide Open IV [facility] Rx#: [id number] Lactated Ringers 1,000 ml @ 75 425 1000 mls/hr IV .[id number] [facility] Rx#: [id number] Zosyn 3.375 gm In Dextrose 5% 50 50 50 in Water 50 ml @ 100 mls/hr IV Q6H [facility] Rx#:[id number] Oral 210 Output: Void Amount 225 Stool 100 Other: Urine Color Dark Yellow Stool Color Brown Stool Consistency Liquid Eye Eye exam: Present EOMI and PERRL ENT ENT exam: Present mucous membranes moist Neck Neck exam: Present full ROM and normal inspection; Absent lymphadenopathy Respiratory Respiratory exam: Present normal respiratory exam and CTAB Cardiovascular Cardiovascular exam: Present normal rate and rhythm, RRR, +S1 and +S2; Absent JVD GI/Abdominal GI/Abdominal exam: Present normal bowel sounds, soft and distended Extremities Exam Extremities exam: Present normal inspection and neurovascular intact Back Exam Back exam: Present normal inspection Neurological Exam Neurological exam: Present alert, oriented X3 and reflexes normal; Absent motor sensory deficit Psychiatric Psychiatric exam: Present normal affect and normal mood A/P Assessment and plan (1) History of intestinal obstruction: Status: Acute (2) Adynamic ileus: Status: Acute (3) Pneumonia: Status: Acute Plan Patient is doing well. He will be advanced to regular diet in the morning 2 view abdominal x-rays in the morning Possible discharge tomorrow Time Spent With Patient Time: Total time spent is greater than 50% in coordination of care (as documented) at patient's floor/unit and/or counseling patient:
--- NOTE | 2022-11-07 13:44 | XRay Report ---
CLINICAL INFORMATION: FOLLOW -UP OF SMALL BOWEL OBSTRUCTION COMPARISON: None. FINDINGS: The stomach and multiple loops of small bowel have decreased in caliber remain mildly dilated with air-fluid levels. Distal small bowel and colon remain relatively decompressed. There is no free air, soft tissue mass, organomegaly or pathologic calcification. IMPRESSION: Improving partial small bowel obstruction pattern Interpreted and Authenticated by: Sai Casper 11/07/22
[2022-11-07] MEDS: TAMSULOSIN 0.4 MG CAPSULE PO SCH (21:13)
[2022-11-07] MEDS: SENNOSIDES 1 TABLET PO SCH (21:13)
[2022-11-08] MEDS: METOCLOPRAMIDE 10 MG/2 ML VIAL IV SCH (05:15)
[2022-11-08] MEDS: PIPERACILLIN SODIUM/TAZOBACTAM 3.375 GM in DEXTROSE 5% IN WATER 50 ML IV SCH (05:15)
[2022-11-08] MEDS: 0.9 % SODIUM CHLORIDE 10 ML SYRINGE IV SCH ×3 (05:24→21:42)
[2022-11-08] MEDS: POLYETHYLENE GLYCOL 3350 17 GM PACKET PO SCH (08:20)
[2022-11-08] MEDS: METOPROLOL SUCCINATE 25 MG TAB.XL.24H PO SCH (08:20)
[2022-11-08] MEDS: DOCUSATE SODIUM 100 MG CAPSULE PO SCH ×2 (08:20→20:03)
[2022-11-08] MEDS: ATORVASTATIN 20 MG TABLET PO SCH (08:20)
[2022-11-08] MEDS: PANTOPRAZOLE 40 MG VIAL IV SCH (08:23)
--- NOTE | 2022-11-08 09:07 | Internal Med Progress Note ---
SUBJECTIVE Subjective Patient information: Note initiated : 11/08/22 at 9:05 am Service Date, if different from initiated Date: [] Patient: Fei Rodrigues 86 y/o M admitted on 11/06/22 for abdominal pain. Chief Complaint: [SBO] Principal diagnosis: Partial bowel obstruction Interval history: The patient was resting comfortably in bed. He was able to finish his breakfast without abdominal pain, nausea or vomiting. The RN was present at the bedside to discuss plan of care. His telemetry will be discontinued today. Constitutional Vitals: Vital Signs Temp Pulse Resp BP Pulse Ox O2 Del Method O2 Flow Rate 98.0 F 95 H 16 104/63 92 2 11/08/22 07:17 11/08/22 08:21 11/08/22 08:21 11/08/22 07:17 11/08/22 08:21 11/08/22 08:21 11/08/22 08:21 Period Temp Pulse Resp BP Sys/Lovell Pulse Ox O2 Del Method O2 Flow Rate Last 24 Hr 97.2 F-98.4 F 92-100 16-20 94-105/58-64 91-93 Nasal Cannula- Oxymask 1-2 Intake and Output 11/07/22 11/08/22 11/08/22 19:59 03:59 11:59 Intake Total 700 1050 350 Output Total 1160 525 400 Balance -460 525 -50 Weight 63.095 kg Intake & Output: Intake & Output 11/07/22 11/08/22 11/08/22 19:59 03:59 11:59 Intake Total 700 1050 350 Output Total 1160 525 400 Balance -460 525 -50 Weight 63.095 kg Intake: IV 100 1050 50 Sodium Chloride 0.45% 1,000 ml 1000 @ 84 mls/hr IV .[id number] [facility] Rx# :[id number] Zosyn 3.375 gm In Dextrose 5% 100 50 50 in Water 50 ml @ 100 mls/hr IV Q6H [facility] Rx#:[id number] Oral 600 300 Output: Void Amount 1010 450 300 Stool 150 75 100 Other: Meal Dinner Breakfast Percent of Meal Consumed 100% 50% Feeding Ability Assist with Tray Set Up Urine Appearance Clear Clear Clear Urine Color Yellow Yellow Yellow Urine Odor Strong Stool Color Brown Brown Brown Stool Consistency Liquid Liquid Liquid # Voids 200 Head Head exam: Present atraumatic and normal inspection Eye Eye exam: Present normal appearance ENT ENT exam: Present mucous membranes moist, normal exam and normal external ear exam Neck Neck exam: Present normal inspection Respiratory Respiratory exam: Present normal respiratory exam Cardiovascular Cardiovascular exam: Present normal rate and rhythm GI/Abdominal GI/Abdominal exam: Present normal bowel sounds Back Exam Back exam: Present normal inspection Neurological Exam Neurological exam: Present alert and oriented X3 Skin Skin exam: Present intact and warm OBJ DATA Labs CBC & Chem 7: 11/07/22 05:25 11/07/22 05:24 Labs: Abnormal Lab Results 11/07/22 11/07/22 11/06/22 05:25 05:24 11:00 WBC RBC 3.42 L Hgb 10.2 L Hct 32.9 L POC Hct RDW 16.6 H Neut % (Auto) Lymph % (Auto) Lymph # (Auto) Lymphocytes % 11 L Absolute Neutrophils RBC Morphology Abnormal A Hypochromasia 1+ A Anisocytosis 1+ A PT INR POC VBG pCO2 at Temp POC VBG pO2 POC VBG HCO3 POC Venous O2 Sat Chloride 110 H Anion Gap 7.0 L POC BUN Glucose POC Glucose Alkaline Phosphatase Total Protein 5.6 L Albumin 3.0 L Urine Ketones 20 A 11/06/22 11/06/22 11/06/22 08:54 08:54 08:30 WBC RBC 3.83 L Hgb 11.4 L Hct 35.6 L POC Hct RDW 16.4 H Neut % (Auto) 86.6 H Lymph % (Auto) 3.4 L Lymph # (Auto) 0.27 L Lymphocytes % Absolute Neutrophils RBC Morphology Hypochromasia Anisocytosis PT 15.4 H INR 1.2 H POC VBG pCO2 at Temp POC VBG pO2 POC VBG HCO3 POC Venous O2 Sat Chloride Anion Gap POC BUN Glucose 122 H POC Glucose Alkaline Phosphatase Total Protein Albumin Urine Ketones 11/05/22 11/05/22 11/05/22 20:54 20:50 20:45 WBC RBC Hgb Hct POC Hct 37.0 L RDW Neut % (Auto) Lymph % (Auto) Lymph # (Auto) Lymphocytes % Absolute Neutrophils RBC Morphology Hypochromasia Anisocytosis PT INR POC VBG pCO2 at Temp 40.3 L POC VBG pO2 18 L POC VBG HCO3 23.7 L POC Venous O2 Sat 26.0 L Chloride Anion Gap POC BUN 26 H Glucose POC Glucose 114 H Alkaline Phosphatase 122 H Total Protein Albumin Urine Ketones 11/05/22 20:45 WBC 11.2 H RBC 3.79 L Hgb 11.3 L Hct 35.7 L POC Hct RDW 16.5 H Neut % (Auto) 87.1 H Lymph % (Auto) 5.3 L Lymph # (Auto) 0.59 L Lymphocytes % Absolute Neutrophils 9.73 H RBC Morphology Hypochromasia Anisocytosis PT INR POC VBG pCO2 at Temp POC VBG pO2 POC VBG HCO3 POC Venous O2 Sat Chloride Anion Gap POC BUN Glucose POC Glucose Alkaline Phosphatase Total Protein Albumin Urine Ketones Meds: Medications Acetaminophen (Acetaminophen 325 Mg Tablet) 650 mg PO Q6HP PRN; Protocol PRN Reason: Per Pain Protocol/Fever > 101 Last Admin: 11/07/22 03:46 Dose: 650 mg Hydrocodone Bitart/Acetaminophen (Hydrocodone/Apap 5/325mg Tablet) 1 tab PO Q4HP PRN PRN Reason: PAIN LEVEL 3-6 Albuterol/Ipratropium (Ipratropium/Albuterol 3 Ml Ampul.Neb) 3 ml NEB Q4HP PRN PRN Reason: Shortness Of Breath Atorvastatin Calcium (Atorvastatin 20 Mg Tablet) 20 mg PO QDAY [facility] Last Admin: 11/08/22 08:20 Dose: 20 mg Docusate Sodium (Docusate Sodium 100 Mg Capsule) 100 mg PO BID [facility] Last Admin: 11/08/22 08:20 Dose: 100 mg Hydromorphone HCl (Hydromorphone 0.5 Mg/0.5 Ml Syringe) 0.5 mg IV Q2HP PRN; Protocol PRN Reason: Per Pain Protocol Potassium Chloride 40 meq/ (Dextrose) 520 mls @ 130 mls/hr IV UD PRN PRN Reason: Potassium < 3 Magnesium Sulfate (Magnesium Sulfate) 2 gm in 50 mls @ 50 mls/hr IV UD PRN PRN Reason: Magnesium </= 1.6 Piperacillin Sod/Tazobactam (Sod 3.375 gm/ Dextrose) 50 mls @ 100 mls/hr IV Q6H [facility]; Protocol Last Infusion: 11/08/22 05:59 Dose: Infused Metoclopramide HCl (Metoclopramide 10 Mg/2 Ml Vial) 10 mg IV Q6 [facility] Last Admin: 11/08/22 05:15 Dose: 10 mg Metoprolol Succinate (Metoprolol Succinate 25 Mg Tab.Xl.24h) 25 mg PO DAILY [facility] Last Admin: 11/08/22 08:20 Dose: 25 mg Metoprolol Tartrate (Metoprolol Tartrate 5 Mg/5 Ml Vial) 5 mg IV Q2HP PRN PRN Reason: Tachyarrhythmias HR>110 Ondansetron HCl (Ondansetron 4 Mg/2 Ml Vial) 4 mg IV Q4HP PRN PRN Reason: Nausea And Vomiting Pantoprazole Sodium (Pantoprazole 40 Mg Vial) 40 mg IV QAMAC [facility] Last Admin: 11/08/22 08:23 Dose: 40 mg Polyethylene Glycol (Polyethylene Glycol 3350 17 Gm Packet) 17 gm PO DAILY [facility] Last Admin: 11/08/22 08:20 Dose: 17 gm Potassium Chloride (Potassium Chloride 20 Meq Tablet) 40 meq PO UD PRN PRN Reason: Potssium is 3-3.5 Potassium Chloride (Potassium Chloride 20 Meq Tablet) 40 meq PO UD PRN PRN Reason: Potassium < 3 Promethazine HCl (Promethazine 25 Mg/Ml Vial) 12.5 mg IV Q4HP PRN PRN Reason: Nausea And Vomiting Senna (Sennosides 1 Tablet) 2 tab PO [facility] Last Admin: 11/07/22 21:13 Dose: 2 tab Sodium Chloride (0.9 % Sodium Chloride 10 Ml Syringe) 10 ml IV Q8 [facility] Last Admin: 11/08/22 05:24 Dose: 10 ml Tamsulosin HCl (Tamsulosin 0.4 Mg Capsule) 0.4 mg PO HS [facility] Last Admin: 11/07/22 21:13 Dose: 0.4 mg A/P Narrative A/P Narrative: A: *PNA (b/l): *Acute hypoxic respiratory failure: -3-4L oxymask *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 Cohen for SBO -diet per surgery -Monitor and replace electrolytes -IVF, -f/u CXR in am -start home po BB and lower dose give soft BP -pt/ot -Home medication reconciliation -ppx: SCD (hold apixaban until seen by surgery) / ppi Time Spent With Patient Time: Total time spent is greater than 50% in coordination of care (as documented) at patient's floor/unit and/or counseling patient:
[2022-11-08] MEDS: LEVOFLOXACIN 750 MG TABLET PO SCH (11:34)
--- NOTE | 2022-11-08 14:01 | XRay Report ---
HISTORY: Follow-up pneumonia FINDINGS: There is a moderate-sized alveolar infiltrate in the lower half of the right lung staining outward from the right hilum. This is superimposed upon underlying pulmonary fibrosis. Patient has moderate pulmonary fibrosis in the left lung, predominantly in the lower half. Small right-sided pleural effusion is present. Heart size is normal. Pacemaker remains well-positioned. Pulmonary vessels, best seen in the upper lobes are normal in caliber. Comparison with the recent x-ray from 11/05/22 shows the pleural effusion has enlarged a small amount and the pneumonia has become slightly worse. IMPRESSION: Moderate right lower lobe pneumonia superimposed upon pulmonary fibrosis Interpreted and Authenticated by: Ricky Wang 11/08/22
--- NOTE | 2022-11-08 14:04 | XRay Report ---
HISTORY: Follow-up small bowel obstruction FINDINGS: There are several nondilated loops of small bowel in the mid and upper abdomen containing air-fluid levels. There is a solitary loop of small bowel in the left mid abdomen which is mildly dilated measuring 3.4 cm. Overall, the caliber of the dilated small bowel has diminished since prior x-ray done on 11/07/22. No free intra-abdominal air is present. 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 IMPRESSION: Resolving small bowel obstruction Interpreted and Authenticated by: Ricky Wang 11/08/22
--- NOTE | 2022-11-08 14:20 | General Surgery Progress Note ---
SUBJECTIVE Subjective Patient information: Note initiated : 11/08/22 at 2:19 pm Service Date, if different from initiated Date: [] Patient: Fei Rodrigues 86 y/o M admitted on 11/06/22 for abdominal pain. Chief Complaint: [] Principal diagnosis: Partial bowel obstruction Interval history: Patient continues to with respect to his abdominal findings. He has had multiple bowel movements each day and he is 2 large liquid bowel movements today. Denies abdominal pain. His O2 sat awake remains normal on 2 L is 84 to 86% on room air currently for. Chest x-ray shows actually worsening infiltrate on the right side he does have some fibrotic changes which is superimposed he may have some interstitial edema also. Constitutional Vitals: Vital Signs Temp Pulse Resp BP Pulse Ox O2 Del Method O2 Flow Rate 98.2 F 96 H 20 116/69 93 2 11/08/22 12:00 11/08/22 12:00 11/08/22 12:00 11/08/22 12:00 11/08/22 12:00 11/08/22 12:00 11/08/22 12:00 Period Temp Pulse Resp BP Sys/Lovell Pulse Ox O2 Del Method O2 Flow Rate Last 24 Hr 97.2 F-98.4 F 92-100 16-20 94-116/58-69 91-93 Nasal Cannula- Oxymask 2-2 Intake and Output 11/08/22 11/08/22 11/08/22 03:59 11:59 19:59 Intake Total 1050 350 Output Total 525 400 200 Balance 525 -50 -200 Intake & Output: Intake & Output 11/08/22 11/08/22 11/08/22 03:59 11:59 19:59 Intake Total 1050 350 Output Total 525 400 200 Balance 525 -50 -200 Intake: IV 1050 50 Sodium Chloride 0.45% 1,000 ml 1000 @ 84 mls/hr IV .[id number] [facility] Rx# :[id number] Zosyn 3.375 gm In Dextrose 5% 50 50 in Water 50 ml @ 100 mls/hr IV Q6H [facility] Rx#:[id number] Oral 300 Output: Void Amount 450 300 Stool 75 100 200 Other: Meal Breakfast Percent of Meal Consumed 50% Urine Appearance Clear Clear Urine Color Yellow Yellow Urine Odor Strong Stool Size Moderate Stool Color Brown Brown Brown Stool Consistency Liquid Liquid Soft Loose # Voids 200 Eye Eye exam: Present PERRL Pupils: Present normal accommodation ENT ENT exam: Present mucous membranes moist and normal oropharynx Additional comments: Edentulous Neck Neck exam: Present full ROM and normal inspection; Absent lymphadenopathy or tenderness Respiratory Respiratory exam: Present normal respiratory exam and decreased breath sounds; Absent wheezes Cardiovascular Cardiovascular exam: Present normal rate and rhythm, RRR, +S1 and +S2; Absent JVD GI/Abdominal GI/Abdominal exam: Present normal bowel sounds and soft; Absent distended Additional comments: 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 Extremities Exam Extremities exam: Present normal inspection and neurovascular intact Neurological Exam Neurological exam: Present alert and oriented X3; Absent motor sensory deficit Psychiatric Psychiatric exam: Present normal affect and normal mood A/P Assessment and plan (1) Adynamic ileus: Status: Acute (2) Pneumonia: Status: Acute (3) Hypoxia: Status: Acute Plan Continue IV antibiotics. We will check oxygen on room air Probable discharge home tomorrow on oral antibiotics Time Spent With Patient Time: Total time spent is greater than 50% in coordination of care (as documented) at patient's floor/unit and/or counseling patient:
[2022-11-08] MEDS: TAMSULOSIN 0.4 MG CAPSULE PO SCH (20:03)
[2022-11-08] MEDS: SENNOSIDES 1 TABLET PO SCH (20:03)
[2022-11-09] MEDS: 0.9 % SODIUM CHLORIDE 10 ML SYRINGE IV SCH ×2 (05:12→14:09)
[2022-11-09] MEDS ORDERED: PANTOPRAZOLE 40 MG TABLET PO SCH (07:30)
--- NOTE | 2022-11-09 08:35 | Internal Med Progress Note ---
SUBJECTIVE Subjective Patient information: Note initiated : 11/09/22 at 8:34 am Service Date, if different from initiated Date: [] Patient: Fei Rodrigues 86 y/o M admitted on 11/06/22 for abdominal pain. Chief Complaint: [Abdominal pain] Principal diagnosis: Partial bowel obstruction Interval history: No active complaints or concerns Constitutional Vitals: Vital Signs Temp Pulse Resp BP Pulse Ox O2 Del Method O2 Flow Rate 97.7 F 97 H 18 123/74 90 2 11/09/22 07:33 11/09/22 07:33 11/09/22 07:33 11/09/22 07:33 11/09/22 07:33 11/09/22 07:33 11/09/22 07:33 Period Temp Pulse Resp BP Sys/Lovell Pulse Ox O2 Del Method O2 Flow Rate Last 24 Hr 97.7 F-98.6 F 88-101 18-24 109-123/69-75 90-93 Nasal Cannula- Oxymask 2-2 Intake and Output 11/08/22 11/09/22 11/09/22 19:59 03:59 11:59 Intake Total 240 125 Output Total 650 675 300 Balance -410 -550 -300 Weight 60.645 kg Intake & Output: Intake & Output 11/08/22 11/09/22 11/09/22 19:59 03:59 11:59 Intake Total 240 125 Output Total 650 675 300 Balance -410 -550 -300 Weight 60.645 kg Intake: Oral 240 125 Output: Void Amount 450 575 300 Stool 200 100 Other: Meal Dinner Percent of Meal Consumed 25% Feeding Ability Independent Urine Appearance Clear Clear Urine Color Yellow Yellow Stool Size Moderate Stool Color Brown Brown Brown Stool Consistency Liquid Liquid Liquid Head Head exam: Present atraumatic and normal inspection Eye Eye exam: Present normal appearance ENT ENT exam: Present mucous membranes moist, normal exam and normal external ear exam Neck Neck exam: Present normal inspection Respiratory Respiratory exam: Present decreased breath sounds Cardiovascular Cardiovascular exam: Present normal rate and rhythm GI/Abdominal GI/Abdominal exam: Present normal bowel sounds Back Exam Back exam: Present normal inspection Neurological Exam Neurological exam: Present alert and oriented X3 Skin Skin exam: Present intact and warm OBJ DATA Labs CBC & Chem 7: 11/07/22 05:25 11/07/22 05:24 Labs: Abnormal Lab Results 01/06/2211/07/22 11/06/22 05:25 05:24 11:00 RBC 3.42 L Hgb 10.2 L Hct 32.9 L RDW 16.6 H Neut % (Auto) Lymph % (Auto) Lymph # (Auto) Lymphocytes % 11 L RBC Morphology Abnormal A Hypochromasia 1+ A Anisocytosis 1+ A PT INR Chloride 110 H Anion Gap 7.0 L Glucose Total Protein 5.6 L Albumin 3.0 L Urine Ketones 20 A 11/06/22 11/06/22 11/06/22 08:54 08:54 08:30 RBC 3.83 L Hgb 11.4 L Hct 35.6 L RDW 16.4 H Neut % (Auto) 86.6 H Lymph % (Auto) 3.4 L Lymph # (Auto) 0.27 L Lymphocytes % RBC Morphology Hypochromasia Anisocytosis PT 15.4 H INR 1.2 H Chloride Anion Gap Glucose 122 H Total Protein Albumin Urine Ketones Meds: Medications Acetaminophen (Acetaminophen 325 Mg Tablet) 650 mg PO Q6HP PRN; Protocol PRN Reason: Per Pain Protocol/Fever > 101 Last Admin: 11/07/22 03:46 Dose: 650 mg Hydrocodone Bitart/Acetaminophen (Hydrocodone/Apap 5/325mg Tablet) 1 tab PO Q4HP PRN PRN Reason: PAIN LEVEL 3-6 Albuterol/Ipratropium (Ipratropium/Albuterol 3 Ml Ampul.Neb) 3 ml NEB Q4HP PRN PRN Reason: Shortness Of Breath Atorvastatin Calcium (Atorvastatin 20 Mg Tablet) 20 mg PO QDAY [facility] Last Admin: 11/08/22 08:20 Dose: 20 mg Docusate Sodium (Docusate Sodium 100 Mg Capsule) 100 mg PO BID [facility] Last Admin: 11/08/22 20:03 Dose: 100 mg Hydromorphone HCl (Hydromorphone 0.5 Mg/0.5 Ml Syringe) 0.5 mg IV Q2HP PRN; Protocol PRN Reason: Per Pain Protocol Potassium Chloride 40 meq/ (Dextrose) 520 mls @ 130 mls/hr IV UD PRN PRN Reason: Potassium < 3 Magnesium Sulfate (Magnesium Sulfate) 2 gm in 50 mls @ 50 mls/hr IV UD PRN PRN Reason: Magnesium </= 1.6 Levofloxacin (Levofloxacin 750 Mg Tablet) 750 mg PO DAILY [facility]; Protocol Last Admin: 11/08/22 11:34 Dose: 750 mg Metoprolol Succinate (Metoprolol Succinate 25 Mg Tab.Xl.24h) 25 mg PO DAILY [facility] Last Admin: 11/08/22 08:20 Dose: 25 mg Metoprolol Tartrate (Metoprolol Tartrate 5 Mg/5 Ml Vial) 5 mg IV Q2HP PRN PRN Reason: Tachyarrhythmias HR>110 Ondansetron HCl (Ondansetron 4 Mg/2 Ml Vial) 4 mg IV Q4HP PRN PRN Reason: Nausea And Vomiting Pantoprazole Sodium (Pantoprazole 40 Mg Tablet) 40 mg PO QAMAC [facility] Last Admin: 11/09/22 07:20 Dose: 40 mg Polyethylene Glycol (Polyethylene Glycol 3350 17 Gm Packet) 17 gm PO DAILY [facility] Last Admin: 11/08/22 08:20 Dose: 17 gm Potassium Chloride (Potassium Chloride 20 Meq Tablet) 40 meq PO UD PRN PRN Reason: Potssium is 3-3.5 Potassium Chloride (Potassium Chloride 20 Meq Tablet) 40 meq PO UD PRN PRN Reason: Potassium < 3 Promethazine HCl (Promethazine 25 Mg/Ml Vial) 12.5 mg IV Q4HP PRN PRN Reason: Nausea And Vomiting Senna (Sennosides 1 Tablet) 2 tab PO [facility] Last Admin: 11/08/22 20:03 Dose: 2 tab Sodium Chloride (0.9 % Sodium Chloride 10 Ml Syringe) 10 ml IV Q8 [facility] Last Admin: 11/09/22 05:12 Dose: 10 ml Tamsulosin HCl (Tamsulosin 0.4 Mg Capsule) 0.4 mg PO [facility] Last Admin: 11/08/22 20:03 Dose: 0.4 mg A/P Narrative A/P Narrative: A: *PNA (b/l): *Acute hypoxic respiratory failure: -3-4L oxymask *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 Cohen for SBO -diet per surgery -Monitor and replace electrolytes -IVF, -f/u CXR in am -start home po BB and lower dose give soft BP -pt/ot -Home medication reconciliation -ppx: SCD (hold apixaban until seen by surgery) / ppi 11/09: The patient may be discharged on Levaquin 750 mg p.o. daily for total of 7 days and follow-up with his PCP. Time Spent With Patient Time: Total time spent is greater than 50% in coordination of care (as documented) at patient's floor/unit and/or counseling patient:
--- NOTE | 2022-11-09 10:05 | XRay Report ---
HISTORY: Follow-up small bowel obstruction FINDINGS: There is a dilated segment of jejunum in the left upper quadrant which measures 4.7 cm in diameter. It measured 3.4 cm on yesterday's exam. There are multiple air-fluid levels in stomach, small and large intestine. Large intestine is decompressed. No free intra-abdominal air is present. There is significant fibrosis/inflammation in both lung bases and small right-sided pleural effusion. IMPRESSION: Increased dilatation of a segment of jejunum in the left upper quadrant Interpreted and Authenticated by: Ricky Wang 11/09/22
[2022-11-09] MEDS: LEVOFLOXACIN 750 MG TABLET PO SCH (10:12)
[2022-11-09] MEDS: METOPROLOL SUCCINATE 25 MG TAB.XL.24H PO SCH (10:12)
[2022-11-09] MEDS: DOCUSATE SODIUM 100 MG CAPSULE PO SCH (10:12)
[2022-11-09] MEDS: ATORVASTATIN 20 MG TABLET PO SCH (10:12)
[2022-11-09] MEDS: POLYETHYLENE GLYCOL 3350 17 GM PACKET PO SCH (10:13)
--- NOTE | 2022-11-09 13:05 | General Surgery Progress Note ---
SUBJECTIVE Subjective Patient information: Note initiated : 11/09/22 at 12:59 pm Service Date, if different from initiated Date: [] Patient: Fei Rodrigues 86 y/o M admitted on 11/06/22 for abdominal pain. Chief Complaint: [] Principal diagnosis: Partial bowel obstruction Interval history: Patient continues to do well. He has had 3 movements through his stoma. He has some prolapse of his stoma but it has not increased since admission. He denies abdominal pain or distention. He is tolerating soft diet without difficulty. He denies any chest pain or shortness of breath. Constitutional Vitals: Vital Signs Temp Pulse Resp BP Pulse Ox O2 Del Method O2 Flow Rate 97.3 F 91 H 18 108/69 94 2 11/09/22 11:45 11/09/22 11:45 11/09/22 07:33 11/09/22 11:45 11/09/22 11:45 11/09/22 11:45 11/09/22 11:45 Period Temp Pulse Resp BP Sys/[place] Pulse Ox O2 Del Method O2 Flow Rate Last 24 Hr 97.3 F-98.6 F 88-101 18-24 108-123/69-75 90-94 Nasal Cannula- Oxymask 2-2 Intake and Output 11/09/22 11/09/22 11/09/22 03:59 11:59 19:59 Intake Total 125 240 Output Total 675 300 Balance -550 -60 Intake & Output: Intake & Output 11/09/22 11/09/22 11/09/22 03:59 11:59 19:59 Intake Total 125 240 Output Total 675 300 Balance -550 -60 Intake: Oral 125 240 Output: Void Amount 575 300 Stool 100 Other: Meal Breakfast Percent of Meal Consumed 90 Feeding Ability Independent Urine Appearance Clear Clear Urine Color Yellow Yellow Stool Color Brown Brown Stool Consistency Liquid Liquid Head Head exam: Present atraumatic, normal inspection and normocephalic Eye Eye exam: Present EOMI and normal appearance ENT ENT exam: Present mucous membranes moist and normal oropharynx Additional comments: Edentulous Neck Neck exam: Present full ROM and normal inspection; Absent lymphadenopathy Respiratory Respiratory exam: Present normal respiratory exam and CTAB; Absent rales or wheezes Cardiovascular Cardiovascular exam: Present normal rate and rhythm, bradycardia, RRR, +S1 and +S2; Absent JVD GI/Abdominal GI/Abdominal exam: Present normal bowel sounds, soft and distended (Mild dis tention but very pliable abdominal wall); Absent guarding, hernia or tenderness Extremities Exam Extremities exam: Present normal inspection and neurovascular intact Neurological Exam Neurological exam: Present alert and oriented X3; Absent motor sensory deficit Psychiatric Psychiatric exam: Present normal affect and normal mood A/P Assessment and plan (1) Adynamic ileus: Status: Acute (2) History of intestinal obstruction: Status: Acute (3) Pneumonia: Status: Acute (4) Anemia, normocytic normochromic: Status: Acute Plan Patient is clinically stable. He can be discharged home with follow-up in the office in 1 week Abdominal x-rays on the day prior to returning to the office MiraLAX 2-3 times daily to stools were soft Sepsis Sepsis Identified: No Narrative Plan of Treatment: MiraLAX 8 ounces 2-3 times daily Time Spent With Patient Time: Total time spent is greater than 50% in coordination of care (as documented) at patient's floor/unit and/or counseling patient:
--- NOTE | 2022-11-09 13:58 | Discharge Summary ---
Discharge Provider Provider IMPORTANT FOLLOW-UP INFORMATION FOR PCP: 1. Follow up with PCP 2. Follow up with general surgery Patient information: Note initiated : 11/09/22 at 1:56 pm Service Date, if different from initiated Date: [] Patient: Fei Rodrigues 86 y/o M admitted on 11/06/22 for abdominal pain. Chief Complaint: [SOB] Date of admission: 11/06/22 02:01 Discharge date: 11/09/22 Primary care physician: Sai Elizabeth DO Admitting clinician: Ranjeet Saravia Consults: 11/05/22 Consult to Physician [CONS] Stat Comment: Consulting Provider: Ranjeet Saravia Reason For Exam: Physician to Consult 11/06/22 Consult to Physician [CONS] Stat Comment: Consulting Provider: Wesley Cohen Reason For Exam: Physician to Consult [facility] Hospital Course Hospital course: History of present illness: Mr. Rodrigues is a 86 year old M Presents ED with abdominal pain as well as nausea vomiting patient also had a recent bowel obstruction. In the ED was found to have pneumonia and small bowel obstruction. He was last here the beginning of September for a bowel obstruction. He also presented in July with a bowel perforation after colonoscopy and underwent ex lap lap With sigmoid resection and colostomy Dr. Cohen was contacted for the bowel obstruction. Per the patient has abdominal pain about increasing throughout the day including increasing shortness of breath. Patient wears 2 L of oxygen at night but wore all day due low O2 sats. His shortness of breath is not particularly feel worse than usual. also had nausea with the abdominal pain. And has a cough for the past couple days. Patient was 80% on arrival room air oxygen. Chest x-ray that significant right lower lobe infiltrate as well as left lower lobe. CT abdomen pelvis with small bowel obstruction. A/P Narrative: A: *PNA (b/l): *Acute hypoxic respiratory failure: -3-4L oxymask *COPD (2L O2@night): *Adynamic ileus vs less likely pSBO: *h/o Afib w/PPM: on eliquis/BB *BPH: *Low BP: pt states BP runs low normally P: -Abx, pending BC/SC->NGTD -prn Nebs, IS/Acapella, RT -Dr. Cohen for SBO -diet per surgery -Monitor and replace electrolytes -IVF, -f/u CXR in am -start home po BB and lower dose give soft BP -pt/ot -Home medication reconciliation -ppx: SCD (hold apixaban until seen by surgery) / ppi 11/09: The patient may be discharged on Levaquin 750 mg p.o. daily for total of 7 days and follow-up with his PCP. Discharge diagnosis: pSBO, R lobar pneumonia Time Spent with Patient Time attestation: Total time spent providing and/or coordinating discharge services: Time spent: Greater than 30 minutes EXAM Constitutional Vitals: Temp Pulse Resp BP Pulse Ox O2 Del Method O2 Flow Rate 97.3 F 91 H 18 108/69 94 2 11/09/22 11:45 11/09/22 11:45 11/09/22 07:33 11/09/22 11:45 11/09/22 11:45 11/09/22 11:45 11/09/22 11:45 General appearance: average body habitus Head Head exam: Present atraumatic, normal inspection and normocephalic Eye Eye exam: Present EOMI, normal appearance and PERRL; Absent conjunctival injec tion ENT ENT exam: Present normal exam; Absent mucous membranes dry Neck Neck exam: Present full ROM; Absent lymphadenopathy Respiratory Respiratory exam: Present normal respiratory exam and CTAB; Absent decreased breath sounds, respiratory distress or wheezes Cardiovascular Cardiovascular exam: Present normal rate and rhythm and RRR; Absent JVD GI/Abdominal GI/Abdominal exam: Present normal bowel sounds and soft; Absent diminished bowel sounds, distended, guarding, mass, rebound or tenderness Neurological Exam Neurological exam: Present alert, CN II-XII intact and oriented X3 Psychiatric Psychiatric exam: Present normal affect and normal mood Skin Skin exam: Present intact and warm; Absent erythema, pallor, petechiae or rash Discharge Data Data Completed and Pending Labs on day of discharge: Preliminary micro results at discharge 11/05/22 23:12 Blood Culture - Preliminary Blood 11/05/22 23:05 Blood Culture - Preliminary Blood Discharge Plan Patient/Caregiver Discharge Instructions Activity: resume usual activities as tolerated Instructions: Bowel Obstruction (DC) Prescriptions: New levofloxacin 750 mg Tablet 750 mg PO DAILY 4 Days Qty: 4 0RF Continued (DME) Oxygen Qty: 1 0RF Rx Instructions: 2 liters at night. tamsulosin 0.4 mg capsule 0.4 mg PO QDAY Qty: 90 3RF acetaminophen [Tylenol] 325 mg tablet 650 mg PO QDAY PRN (Reason: Pain) calcium carbonate-vitamin D3 500mg (1,250mg) -600 unit tablet 1 tab PO QDAY cyanocobalamin (vitamin B-12) [Vitamin B-12] 2,500 mcg tablet, sublingual 2,500 mcg SUBLINGUAL QDAY lactobac cmb #[id number] 1 cap PO QDAY multivitamin 1 each PO DAILY cholecalciferol (vitamin D3) 2,000 unit capsule 2,000 unit PO QDAY atorvastatin 20 mg tablet 20 mg PO QDAY omega-3 fatty acids [Fish Oil Concentrate] 1,000 mg capsule 1,000 mg PO QDAY apixaban 5 mg tablet 5 mg PO BID metoprolol succinate 50 mg tablet extended release 24 hr 50 mg PO QDAY magnesium oxide 400 mg magnesium capsule 400 mg PO QDAY albuterol sulfate [Ventolin HFA] 90 mcg/actuation HFA aerosol inhaler 2 puff inhalation BID Label Comments: [NO ORIGINAL SIG] Follow Up Plan Follow up with: Sai Elizabeth DO [Primary Care Provider] - Wesley Cohen MD [Physician] - (Follow-up in office in 1 week 2 view abdominal x-ray on the day prior to office visit ) Patient Disposition: Home, Self-Care Plan of Treatment: MiraLAX 8 ounces 2-3 times daily Prognosis: Fair Rehab Potential: Fair I certify that the patient requires SNF services: No Overall status at discharge: patient is progressing back to baseline Discharge Orders: Discharge Order (Routine); Ordered 11/09/22 Ordered By: Ho Villagomez
== END 2022-11-09 15:55 | disposition home or self-care (01) | DRG 190 ==
LOC: ED 20:39 → MEDSUR 11-06 02:01
PROVIDERS: ADMIT Internal Medicine; ATTEND Student in an Organized Health Care Education/Training Program

== ENCOUNTER 2022-12-23 14:40 | Observation (INO) ==
[2022-12-23] MEDS ORDERED: morphine 4 MG/ML VIAL IV PRN (15:29)
[2022-12-23] MEDS ORDERED: ONDANSETRON 4 MG/2 ML VIAL IV ONE ×3 (15:29→19:40)
[2022-12-23] MEDS ORDERED: 0.9 % SODIUM CHLORIDE 1,000 ML IV ONE ×2 (15:29→17:21)
--- NOTE | 2022-12-23 15:39 | Emergency Department Note ---
Abdominal Pain HPI General Chief Complaint: Abdominal Pain Stated Complaint: Stomach Pain Time Seen by Provider: 12/23/22 14:56 Source: patient Mode of arrival: wheelchair Limitations: no limitations History of Present Illness HPI Narrative: Narrative: This is a pleasant 87-year-old male presents emergency department with his daughter victor hugo with complaints of abdominal pain nausea and vomiting. Patient had an appendectomy getting a colostomy in place after he had a colonoscopy that resulted in a perforation. Since the fall he has had this colostomy in place and has been seen at least twice for bowel obstructions. Patient reports that his pain started this morning and has been getting worse he has been having nausea and vomiting. He is not having fever chills chest pain trouble breathing dysuria urinary frequency or urgency. The colostomy bag was changed about noon and has not resulted in any stool within the bag yet. Related Data Home Medications Medication Instructions Recorded Confirmed acetaminophen 325 mg tablet 650 mg PO QDAY PRN Pain 06/07/16 11/17/22 (Tylenol) lactobac cmb #[id number] 1 cap PO QDAY 06/07/16 11/17/22 [Probiotic and Acidophilus] atorvastatin 20 mg tablet 20 mg PO QDAY 04/03/19 11/17/22 apixaban 5 mg tablet 5 mg PO BID 09/15/20 11/17/22 metoprolol succinate 50 mg 50 mg PO QDAY 03/18/22 11/17/22 tablet,extended release 24 hr magnesium oxide 400 mg PO QDAY 06/09/22 11/17/22 albuterol sulfate 90 mcg/actuation 2 puff inhalation BID 10/21/22 11/17/22 aerosol inhaler (Ventolin HFA) Oxygen 11/16/22 11/17/22 Previous Rx's Medication Instructions Recorded tamsulosin 0.4 mg capsule 0.4 mg PO QDAY #90 caps 11/09/21 Allergies Allergy/AdvReac Type Severity Reaction Status Date / Time codeine AdvReac Mild Nausea Verified 12/23/22 14:49 Review of Systems ROS ROS Narrative: Narrative: All systems ED: reviewed and negative except as stated. COUNT INCLUDES THE [facility] Narrative Patient History Narrative: Narrative: Medical/Surgical/Family History All Active Problems (Updated 12/23/22 @ 22:57 by William Kwon PA-C) Colostomy in place (Chronic) History of intestinal obstruction (Acute) Bowel obstruction (Acute) Small bowel obstruction (Acute) Hypoxia (Acute) Exertional dyspnea (Acute) Partial obstruction of small intestine (Acute) Dehydration (Acute) Pneumonia (Acute) C. difficile diarrhea (Acute) Complete obstruction of small intestine (Acute) Anemia, normocytic normochromic (Acute) Atrial fibrillation (Acute) Colon perforation (Acute) Nausea (Acute) Tingling sensation (Acute) Hemarthrosis of knee, right (Acute) Knee injury (Acute) Unstable right knee (Acute) Pain and swelling of right knee (Acute) Medicare annual wellness visit, initial (Acute) PAF (paroxysmal atrial fibrillation) (Chronic) Sinus node dysfunction (Chronic) Nonsustained ventricular tachycardia (Chronic) Lower urinary obstructive symptom (Chronic) BPH w urinary obs/LUTS (Chronic) Diarrhea (Chronic) Closed rib fracture (Acute) CAD (coronary artery disease) (Chronic) Ventricular tachycardia (Acute) Syncope, near (Acute) Hearing loss (Chronic) Cataracts, bilateral (Chronic) Vertigo (Chronic) Malignant neoplasm of bronchus and lung, unspecified site (Chronic) Positional vertigo (Acute) Presence of cardiac pacemaker (Chronic) Bilateral hydrocele (Chronic) Malignant neoplasm of lung (Chronic) Bruit of left carotid artery (Chronic) Weight loss (Chronic) Vasovagal syncope (Chronic 12/18/05) Acute sinusitis (Chronic 02/05/14) Schatzki's ring (Chronic) Lymphadenopathy (Chronic) Peripheral vascular disease (Chronic) Osteoporosis (Chronic) Osteoarthritis (Chronic) Onychomycosis (Chronic) Obstructive uropathy (Chronic) Lichen planus (Chronic) Right inguinal pain (Chronic) Accelerated idioventricular rhythm (Chronic) Nocturnal hypoxemia (Chronic) Hypotension (Chronic) Hyperlipidemia (Chronic) Hydrocele (Chronic 11/29/13) Hammer toe (Chronic) Family history of stress (Chronic) Esophagitis (Chronic) Enlarged prostate (Chronic) Dyspnea (Chronic) Dysphagia (Chronic 11/29/13) Dupuytren's contracture (Chronic) Depression (Chronic) Colon adenoma (Chronic) COPD (chronic obstructive pulmonary disease) (Chronic) Chronic bronchitis (Chronic) Bradycardia (Chronic 12/18/05) Low back pain (Chronic 12/24/06) Actinic keratosis (Chronic) Anemia (Chronic) Abdominal aortic aneurysm (AAA) (Chronic) Medical History Abdominal aortic aneurysm (AAA) Aortic endograft Accelerated idioventricular rhythm Actinic keratosis Acute sinusitis (02/05/14) Anemia BPH w urinary obs/LUTS Improved greatly with Flomax 0.4 mg daily. Bradycardia (12/18/05) Sinus of unknown origina Chronic bronchitis Closed fracture of wrist 10/10 right Closed hip fracture left Closed skull fracture (12/18/05) fell and hit head on the toilet, passed out. Colon adenoma 2004 COPD (chronic obstructive pulmonary disease) Depression Diarrhea Dupuytren's contracture Dysphagia (11/29/13) recurrent Dyspnea Enlarged prostate Esophagitis H/O Family history of stress Gastritis Hammer toe Right second and third toes History of blood transfusion 2 units History of ECG (09/30/15) History of echocardiogram 06/03/15 - [facility]. 03/29/19 - [place] [facility]. History of pacemaker (06/20/10) [employer]OT[employer] MODEL 344899 History of tobacco abuse Stopped Hydrocele (11/29/13) Bilateral large, left greater than right Hyperlipidemia Now on atorvastatin at 20 mg each day Hypotension Beta-aniyah added Lichen planus Low back pain (12/24/06) Lower urinary obstructive symptom Denies history of BPH or urinary obstructive symptoms. States symptoms just started about 6 months ago. Prostate only 2+ today and nontender. Smooth with no nodules. AUA score is 18 today and he has mixed quality of life due to his symptoms. We will check PSA. We will get urine sample with next set of pelvic pain. Lymphadenopathy Perililar. H/O. Malignant neoplasm of bronchus and lung, unspecified site 2011 non-small cell carcinoma Medicare annual wellness visit, initial Nocturnal hypoxemia Overnight pulse ox from August 2020 shows O2 sats <88% for 56 minutes total overnight. Nonsustained ventricular tachycardia Obstructive uropathy Onychomycosis Osteoarthritis Osteoporosis Peripheral vascular disease Asymptomatic, but abnormal MAGALY -0.43 on the right Arterial duplex of bilateral lower extremities ordered Continue statin. Not on aspirin due to being anticoagulated. Right inguinal pain Schatzki's ring Sinus node dysfunction Pacemaker Squamous cell carcinoma lung Vasovagal syncope (12/18/05) and collapse Weight loss Surgical History History of biopsy (09/15/07) right flank lesion History of bronchoscopy (06/01/12) History of colonoscopy (09/06/13) Two polypoid fragments of colonic mucosa with minimal surface hyperplastic change History of esophagogastroduodenoscopy (EGD) (09/07/11) 09/07/11 MICRO: CHRONIC GASTRITIS WITH INTESTINAL METAPLASIA AND FOCAL ACUTE INFLAMMATION. CONSULT: SCHATZKI'S RING, SMALL HIATAL HERNIA, GASTRITIS. 06/30/16 Schatzki's ring dilated and Egan's esophagus. History of exploratory laparotomy 08/03/2022-1. Exploratory laparotomy with resection of sigmoid perforation. 2. End colostomy. 3. Washout and drainage History of lobectomy of lung History of lobectomy of lung 06/11 RIGHT LOWER LOBE followed by chemotherapy History of lung biopsy (05/02/12) History of surgery (06/01/12) Mediastinoscopy History of thoracotomy (06/01/12) RIGHT LOWER LOBE WAS RESECTED THRU A LIMITED RIGHT THORACOTOMY History of tonsillectomy S/P AAA repair (~2012) Status post-operative repair of closed fracture of left hip 2009 hemiarthroplasty Family History Mother , age 76 Diabetes mellitus Heart disease Father , age 61 Heart disease Peptic ulcer Brother CAD (coronary artery disease) Social History Smoking Status: Former smoker Alcohol Intake Frequency: 0-2 drinks per day Substance Use: does not use Exam Narrative Narrative: Narrative: General: Alert, in mild distress Head: No trauma normocephalic Eyes: PERRLA, EOMs intact no scleral icterus or scleral injection Neck: Full range of motion, no midline tenderness Cardiovascular: Regular rate and rhythm no murmur Respiratory: Clear to auscultation bilaterally. No rhonchi rales or wheezes, no respiratory distress Abdomen pelvis: Colostomy is in place to patient and [id number] reports that it is looked like that since it was placed. Patient is tender in suprapubically and periumbilical. There is voluntary guarding. Nondistended. Neuro: Patient is alert and oriented x3 Psych: Normal affect, normal mood Skin: Warm, no rash, normal color General Limitations: no limitations Course Vital Signs Vital signs: Vital Signs Temperature 98.6 F 12/23/22 14:47 Pulse Rate 118 H 12/23/22 14:47 Respiratory Rate 19 12/23/22 14:47 Blood Pressure 108/74 12/23/22 14:47 Pulse Oximetry (%) 92 12/23/22 14:47 Oxygen Delivery Method Nasal Cannula 12/23/22 14:47 Oxygen Flow Rate (L/min) 2 12/23/22 14:47 Temperature 98.6 F 12/23/22 14:47 Pulse Rate 131 H 12/23/22 21:31 Respiratory Rate 19 12/23/22 21:46 Blood Pressure 107/89 12/23/22 22:15 Pulse Oximetry (%) 91 12/23/22 21:31 Oxygen Delivery Method Nasal Cannula 12/23/22 17:33 Oxygen Flow Rate (L/min) 4 12/23/22 17:33 MDM MDM Narrative Medical decision making narrative: Narrative: Differential diagnosis: Bowel obstruction, UTI, ileus, Independent lab ordered and reviewed by me: CBC does not show any anemia or leukocytosis Chem-8 does not show any significant derangement magnesium is normal hepatic panel normal UA shows some ketones but no sign of infection, VBG is borderline acidotic and the lactic acid is 2.2. The CT of abdomen pelvis showed recurrent small bowel obstruction. I spoke with the Dr. Willis the surgeon on-call who agreed to consult on the patient when the hospitalist would admit. The reason for this was because the patient is medically complex 87 years old he has now recurrent small bowel obstructions this is his I believe third. He has a history of A-fib and while we are attempting to put in NG tube he did have a run of V. tach that was not sustained but it lasted approximately 20 seconds or so. He also has a COPD hypertension dyslipidemia. I spoke with Dr. Tony the hospitalist who said that the patient should be admitted by the surgeon since that this is a surgical admission. He would be happy to consult medically but he was not going to be the primary admission doctor. I had a [id number] conversations with both Dr. Willis and the hospitalist. They came to the conclusion that because of the aforementioned reasons that we were unable to keep this patient at this hospital since that they were too medically complex. The patient did say that he was not wanting to get surgery since he did not know if he would make it through it. He is a DNR as well. At the end of my shift the patient was a still pending transfer to another facility. Care was handed off to Dr. Clement please see his addendum. Lab Data 12/23/22 15:47 Labs: Lab Results 12/23/22 12/23/22 12/23/22 Range/Units 15:46 15:46 15:47 WBC 4.4 L (4.5-11.0) K/mcL RBC 4.65 (4.63-6.08) M/mcL Hgb 13.6 L (13.7-17.5) g/dL Hct 42.7 (40.1-51.0) % POC Hct (41-55) MCV 91.8 (80.0-100.0) fL MCH 29.2 (26.0-34.0) pg MCHC 31.9 (31.0-36.0) g/dL RDW 15.0 H (11.5-14.5) % Plt Count 288 (140-440) K/mcL MPV 10.1 (8.8-12.5) fL Immature Gran % (Auto) 0.2 (0.0-0.5) % Neut % (Auto) 80.0 H (38.0-78.0) % Lymph % (Auto) 17.3 (15.5-49.0) % Kay % (Auto) 2.3 (1.0-12.0) % Eos % (Auto) 0.2 (0.0-7.0) % Baso % (Auto) 0 (0.0-2.0) % Lymph # (Auto) 0.77 L (1.50-4.80) K/mcL Kay # (Auto) 0.10 (0.10-0.90) K/mcL Eos # (Auto) 0.01 (0.00-0.70) K/mcL Baso # (Auto) 0 (0.00-0.30) K/mcL Immature Gran # 0.01 (0.00-0.05) K/mcl Absolute Neutrophils 3.55 (1.80-8.00) K/mcL ABG Methemoglobin 0.2 L (0.4-1.5) % VBG pH 7.34 (7.32-7.42) U VBG pCO2 46.2 (41.0-51.0) mmHg VBG pO2 40.8 H (25.0-40.0) mmHg VBG HCO3 24.5 (24.0-28.0) mmol/L VBG Total CO2 26.0 (25.0-29.0) mmol/L VBG O2 Saturation 70.0 (40.0-70.0) % VBG Base Excess -2 (-2-3) VBG Lactic Acid (0.5-2.0) mmol/L Carboxyhemoglobin 3.7 H (0.0-1.5) % THgb Total Hemoglobin 15.0 (13.5-16.5) gm/Dl POC Sodium (133-145) POC Potassium (3.3-5.1) POC Chloride (96-108) POC Total CO2 (22-30) POC BUN (6-20) POC Creatinine (0.6-1.2) POC Glucose (70-105) POC WB Ioniz Calcium (1.16-1.32) Magnesium 2.0 (1.6-2.5) mg/dL Total Bilirubin 0.4 (0.1-1.0) mg/dL Direct Bilirubin < 0.2 (0-0.3) mg/dL AST 16 (<40) U/L ALT 12 (<40) U/L Alkaline Phosphatase 141 H (39-117) U/L Total Protein 8.0 (5.9-8.4) gm/dL Albumin 4.4 (3.2-5.2) gm/dL Globulin 3.6 (2.2-3.7) gm/dL Lipase 29 (7-60) U/L Procalcitonin (<0.10) ng/mL Urine Color Urine Appearance (Clear) Urine pH (5.0-9.0) Ur Specific Dwarf (1.000-1.035) Urine Protein (Negative) mg/dL Urine Glucose (UA) (Negative) mg/dL Urine Ketones (Negative) mg/dL Urine Occult Blood (Negative) mg/dL Urine Nitrate (Negative) Urine Bilirubin (Negative) mg/dL Urine Urobilinogen mg/dL Ur Leukocyte Esterase (Negative) /uL Urine RBC (0-3) /hpf Urine WBC (0-4) /hpf Ur Squamous Epith Cells (0-4) /hpf Urine Bacteria (0) /hpf Hyaline Casts (0-2) /lph Urine Mucus (None) /hpf Ur Culture Indicated? 12/23/22 12/23/22 12/23/22 Range/Units 15:47 15:47 15:56 WBC (4.5-11.0) K/mcL RBC (4.63-6.08) M/mcL Hgb (13.7-17.5) g/dL Hct (40.1-51.0) % POC Hct 45.0 (41-55) MCV (80.0-100.0) fL MCH (26.0-34.0) pg MCHC (31.0-36.0) g/dL RDW (11.5-14.5) % Plt Count (140-440) K/mcL MPV (8.8-12.5) fL Immature Gran % (Auto) (0.0-0.5) % Neut % (Auto) (38.0-78.0) % Lymph % (Auto) (15.5-49.0) % Kay % (Auto) (1.0-12.0) % Eos % (Auto) (0.0-7.0) % Baso % (Auto) (0.0-2.0) % Lymph # (Auto) (1.50-4.80) K/mcL Kay # (Auto) (0.10-0.90) K/mcL Eos # (Auto) (0.00-0.70) K/mcL Baso # (Auto) (0.00-0.30) K/mcL Immature Gran # (0.00-0.05) K/mcl Absolute Neutrophils (1.80-8.00) K/mcL ABG Methemoglobin (0.4-1.5) % VBG pH (7.32-7.42) U VBG pCO2 (41.0-51.0) mmHg VBG pO2 (25.0-40.0) mmHg VBG HCO3 (24.0-28.0) mmol/L VBG Total CO2 (25.0-29.0) mmol/L VBG O2 Saturation (40.0-70.0) % VBG Base Excess (-2-3) VBG Lactic Acid 2.2 H (0.5-2.0) mmol/L Carboxyhemoglobin (0.0-1.5) % THgb Total Hemoglobin (13.5-16.5) gm/Dl POC Sodium 139 (133-145) POC Potassium 4.9 (3.3-5.1) POC Chloride 102 (96-108) POC Total CO2 31.0 H (22-30) POC BUN 27 H (6-20) POC Creatinine 0.8 (0.6-1.2) POC Glucose 127 H (70-105) POC WB Ioniz Calcium 1.18 (1.16-1.32) Magnesium (1.6-2.5) mg/dL Total Bilirubin (0.1-1.0) mg/dL Direct Bilirubin (0-0.3) mg/dL AST (<40) U/L ALT (<40) U/L Alkaline Phosphatase (39-117) U/L Total Protein (5.9-8.4) gm/dL Albumin (3.2-5.2) gm/dL Globulin (2.2-3.7) gm/dL Lipase (7-60) U/L Procalcitonin 0.08 (<0.10) ng/mL Urine Color Urine Appearance (Clear) Urine pH (5.0-9.0) Ur Specific Dwarf (1.000-1.035) Urine Protein (Negative) mg/dL Urine Glucose (UA) (Negative) mg/dL Urine Ketones (Negative) mg/dL Urine Occult Blood (Negative) mg/dL Urine Nitrate (Negative) Urine Bilirubin (Negative) mg/dL Urine Urobilinogen mg/dL Ur Leukocyte Esterase (Negative) /uL Urine RBC (0-3) /hpf Urine WBC (0-4) /hpf Ur Squamous Epith Cells (0-4) /hpf Urine Bacteria (0) /hpf Hyaline Casts (0-2) /lph Urine Mucus (None) /hpf Ur Culture Indicated? 12/23/22 Range/Units 20:14 WBC (4.5-11.0) K/mcL RBC (4.63-6.08) M/mcL Hgb (13.7-17.5) g/dL Hct (40.1-51.0) % POC Hct (41-55) MCV (80.0-100.0) fL MCH (26.0-34.0) pg MCHC (31.0-36.0) g/dL RDW (11.5-14.5) % Plt Count (140-440) K/mcL MPV (8.8-12.5) fL Immature Gran % (Auto) (0.0-0.5) % Neut % (Auto) (38.0-78.0) % Lymph % (Auto) (15.5-49.0) % Kay % (Auto) (1.0-12.0) % Eos % (Auto) (0.0-7.0) % Baso % (Auto) (0.0-2.0) % Lymph # (Auto) (1.50-4.80) K/mcL Kay # (Auto) (0.10-0.90) K/mcL Eos # (Auto) (0.00-0.70) K/mcL Baso # (Auto) (0.00-0.30) K/mcL Immature Gran # (0.00-0.05) K/mcl Absolute Neutrophils (1.80-8.00) K/mcL ABG Methemoglobin (0.4-1.5) % VBG pH (7.32-7.42) U VBG pCO2 (41.0-51.0) mmHg VBG pO2 (25.0-40.0) mmHg VBG HCO3 (24.0-28.0) mmol/L VBG Total CO2 (25.0-29.0) mmol/L VBG O2 Saturation (40.0-70.0) % VBG Base Excess (-2-3) VBG Lactic Acid (0.5-2.0) mmol/L Carboxyhemoglobin (0.0-1.5) % THgb Total Hemoglobin (13.5-16.5) gm/Dl POC Sodium (133-145) POC Potassium (3.3-5.1) POC Chloride (96-108) POC Total CO2 (22-30) POC BUN (6-20) POC Creatinine (0.6-1.2) POC Glucose (70-105) POC WB Ioniz Calcium (1.16-1.32) Magnesium (1.6-2.5) mg/dL Total Bilirubin (0.1-1.0) mg/dL Direct Bilirubin (0-0.3) mg/dL AST (<40) U/L ALT (<40) U/L Alkaline Phosphatase (39-117) U/L Total Protein (5.9-8.4) gm/dL Albumin (3.2-5.2) gm/dL Globulin (2.2-3.7) gm/dL Lipase (7-60) U/L Procalcitonin (<0.10) ng/mL Urine Color Yellow Urine Appearance Clear (Clear) Urine pH 6.0 (5.0-9.0) Ur Specific Dwarf 1.041 (1.000-1.035) Urine Protein Negative (Negative) mg/dL Urine Glucose (UA) Negative (Negative) mg/dL Urine Ketones 5 A (Negative) mg/dL Urine Occult Blood Negative (Negative) mg/dL Urine Nitrate Negative (Negative) Urine Bilirubin Negative (Negative) mg/dL Urine Urobilinogen Negative mg/dL Ur Leukocyte Esterase Negative (Negative) /uL Urine RBC 2 (0-3) /hpf Urine WBC 1 (0-4) /hpf Ur Squamous Epith Cells 0 (0-4) /hpf Urine Bacteria None (0) /hpf Hyaline Casts 4 H (0-2) /lph Urine Mucus Few A (None) /hpf Ur Culture Indicated? No ED POC Tests ED POC Tests: JARAD - SARS Antigen Negative EKG Data EKG #1: EKG results narrative: ECG shows atrial fibrillation 116 beats a minute, normal axis, narrow QRS and normal QTc. There is no signs Brugada, Qyphj-[id number]-[id number] or HOCM. No ST segment deviations or hyperacute T waves. My interpretation is atrial fibrillation Discharge Plan Patient/Caregiver Discharge Instructions Pt seen by INSURANCE ADJUSTER/PA only: No Clinical Impression: Small bowel obstruction Patient Disposition: Still a Patient Follow up with: Sai Elizabeth DO [Primary Care Provider] - Prescriptions: No Action tamsulosin 0.4 mg capsule 0.4 mg PO QDAY Qty: 90 3RF acetaminophen [Tylenol] 325 mg tablet 650 mg PO QDAY PRN (Reason: Pain) lactobac cmb #[id number] 1 cap PO QDAY atorvastatin 20 mg tablet 20 mg PO QDAY apixaban 5 mg tablet 5 mg PO BID metoprolol succinate 50 mg tablet extended release 24 hr 50 mg PO QDAY magnesium oxide 400 mg magnesium capsule 400 mg PO QDAY albuterol sulfate [Ventolin HFA] 90 mcg/actuation HFA aerosol inhaler 2 puff inhalation BID Patient Comments: [NO ORIGINAL SIG] (DME) Oxygen See Rx Instructions Rx Instructions: Per patient's son, patient has been using oxygen at all times.-dt
[2022-12-23 16:01] LABS: POC Calcium, Ionized 1.18 (1.16-1.32); POC Creatinine 0.8 (0.6-1.2); POC Potassium 4.9 (3.3-5.1)
[2022-12-23 16:21] LABS: ABG Methemoglobin 0.2 % (0.4-1.5); VBG Base Excess -2 (-2-3); VBG HCO3 24.5 mmol/L (24.0-28.0); VBG PCO2 46.2 mmHg (41.0-51.0); VBG PH 7.34 U (7.32-7.42); VBG PO2 40.8 mmHg (25.0-40.0)
[2022-12-23 16:27] LABS: Basophils # (Auto) 0 K/mcL (0.00-0.30); Basophils % (Auto) 0 % (0.0-2.0); Eosinophils # (Auto) 0.01 K/mcL (0.00-0.70); Eosinophils % (Auto) 0.2 % (0.0-7.0); Hematocrit 42.7 % (40.1-51.0); Hemoglobin 13.6 g/dL (13.7-17.5); Lymphocytes # (Auto) 0.77 K/mcL (1.50-4.80); Lymphocytes % (Auto) 17.3 % (15.5-49.0); Mean Cell Volume 91.8 fL (80.0-100.0); Mean Corpuscular HGB Conc 31.9 g/dL (31.0-36.0); Mean Platelet Volume 10.1 fL (8.8-12.5); Monocytes % (Auto) 2.3 % (1.0-12.0); Platelet Count 288 K/mcL (140-440); RBC 4.65 M/mcL (4.63-6.08); WBC 4.4 K/mcL (4.5-11.0)
[2022-12-23 16:48] LABS: ALT/SGPT 12 U/L (<40); AST/SGOT 16 U/L (<40); Albumin 4.4 gm/dL (3.2-5.2); Alkaline Phosphatase 141 U/L (39-117); Bilirubin,Direct < 0.2 mg/dL (0-0.3); Bilirubin,Total 0.4 mg/dL (0.1-1.0); Globulin 3.6 gm/dL (2.2-3.7)
--- NOTE | 2022-12-23 17:38 | Cat Scan Report ---
History: Periumbilical pain, nausea, vomiting, recent small bowel obstruction TECHNIQUE: Following injection of intravenous nonionic contrast the patient was imaged during the portal venous phase from above the diaphragm through the symphysis pubis. Sagittal and coronal reformats were created. The radiation exposure was limited using dose reduction technology. FINDINGS: Patient has moderate pulmonary fibrosis and superimposed level low-level inflammation in both lower lobes. There are small bilateral pleural effusions. The consolidating masslike lesion seen in the posterior portion of the right lower lobe on the prior exam is outside the field of view on today's study. The liver and spleen are normal in size and homogeneous. Gallbladder and bile ducts are normal. No abnormality seen within the pancreas. The adrenals are normal. There is a small cyst in left kidney. Kidneys are otherwise normal with no stone mass or hydronephrosis. There is an endograft in the abdominal aorta. An endograft is patent and there is no evidence of an endoleak. Aorta is 3.3 cm in diameter. Patient had a prior partial sigmoid colectomy performed. There is a colostomy in the left mid abdominal wall. There is a loop of nondilated small bowel which protrudes into the stoma. Patient has recurrent small bowel obstruction. There are multiple dilated loops of small intestine with air-fluid levels. They measure up to 4 cm. The stomach is also distended with a large amount of fluid. The large intestine is decompressed. No free air or free fluid are present in the abdomen or pelvis. There are stable chronic degenerative changes at multiple levels in the spine. There are old compression fractures at T11, L1 and L2. Comparison with the prior CT from 11/05/22 shows the small bowel obstruction is a recurrent finding. The transition point is difficult to clearly identify but appears to be in the midabdomen. Incidentally noted is a moderate amount of fluid in the right upper scrotum. This could be a hydrocele or large spermatocele. IMPRESSION: Recurrent small bowel obstruction Interpreted and Authenticated by: Ricky Wang 12/23/22
--- NOTE | 2022-12-23 19:18 | General Surgery Consult Note ---
HPI Date of Consult Consult Date: 12/23/22 Primary Care Provider: Sai Elizabeth DO Consult Narrative Patient Information: Note initiated : 12/23/22 at 7:12 pm Service Date, if different from initiated Date: [] Patient: Fei Rodrigues 87 y/o M admitted on for Stomach Pain. This is a pleasant 87-year-old gentleman who is known to the surgical [facility] status post perforation during screening colonoscopy by a GI provider, status post exploratory laparotomy and ostomy. Since that time he has had 3 mild episodes of small bowel obstruction all of which have resolved conservati vely without difficulty. Patient admitted to the hospitalist during all of the prior small bowel obstruction admissions. Patient had normal ostomy output until this morning, his ostomy output went down and he started to have some nausea with emesis. Patient was brought to the emergency room, he has a normal white count and a CT scan which is read as a partial small bowel obstruction. Chief Complaint: [] Chief complaint: Nausea Reason for consult: Partial small bowel obstruction cc:: CC: Review of Systems Review of systems: All systems reviewed, negative other than above PFSH PFSH All Active Problems Colostomy in place (Chronic) History of intestinal obstruction (Acute) Bowel obstruction (Acute) Small bowel obstruction (Acute) Hypoxia (Acute) Exertional dyspnea (Acute) Partial obstruction of small intestine (Acute) Dehydration (Acute) Pneumonia (Acute) C. difficile diarrhea (Acute) Complete obstruction of small intestine (Acute) Anemia, normocytic normochromic (Acute) Atrial fibrillation (Acute) Colon perforation (Acute) Nausea (Acute) Tingling sensation (Acute) Hemarthrosis of knee, right (Acute) Knee injury (Acute) Unstable right knee (Acute) Pain and swelling of right knee (Acute) Medicare annual wellness visit, initial (Acute) PAF (paroxysmal atrial fibrillation) (Chronic) Sinus node dysfunction (Chronic) Nonsustained ventricular tachycardia (Chronic) Lower urinary obstructive symptom (Chronic) BPH w urinary obs/LUTS (Chronic) Diarrhea (Chronic) Closed rib fracture (Acute) CAD (coronary artery disease) (Chronic) Ventricular tachycardia (Acute) Syncope, near (Acute) Hearing loss (Chronic) Cataracts, bilateral (Chronic) Vertigo (Chronic) Malignant neoplasm of bronchus and lung, unspecified site (Chronic) Positional vertigo (Acute) Presence of cardiac pacemaker (Chronic) Bilateral hydrocele (Chronic) Malignant neoplasm of lung (Chronic) Bruit of left carotid artery (Chronic) Weight loss (Chronic) Vasovagal syncope (Chronic 12/18/05) Acute sinusitis (Chronic 02/05/14) Schatzki's ring (Chronic) Lymphadenopathy (Chronic) Peripheral vascular disease (Chronic) Osteoporosis (Chronic) Osteoarthritis (Chronic) Onychomycosis (Chronic) Obstructive uropathy (Chronic) Lichen planus (Chronic) Right inguinal pain (Chronic) Accelerated idioventricular rhythm (Chronic) Nocturnal hypoxemia (Chronic) Hypotension (Chronic) Hyperlipidemia (Chronic) Hydrocele (Chronic 11/29/13) Hammer toe (Chronic) Family history of stress (Chronic) Esophagitis (Chronic) Enlarged prostate (Chronic) Dyspnea (Chronic) Dysphagia (Chronic 11/29/13) Dupuytren's contracture (Chronic) Depression (Chronic) Colon adenoma (Chronic) COPD (chronic obstructive pulmonary disease) (Chronic) Chronic bronchitis (Chronic) Bradycardia (Chronic 12/18/05) Low back pain (Chronic 12/24/06) Actinic keratosis (Chronic) Anemia (Chronic) Abdominal aortic aneurysm (AAA) (Chronic) Medical History Abdominal aortic aneurysm (AAA) Aortic endograft Accelerated idioventricular rhythm Actinic keratosis Acute sinusitis (02/05/14) Anemia BPH w urinary obs/LUTS Improved greatly with Flomax 0.4 mg daily. Bradycardia (12/18/05) Sinus of unknown origina Chronic bronchitis Closed fracture of wrist 10/10 right Closed hip fracture left Closed skull fracture (12/18/05) fell and hit head on the toilet, passed out. Colon adenoma 2004 COPD (chronic obstructive pulmonary disease) Depression Diarrhea Dupuytren's contracture Dysphagia (11/29/13) recurrent Dyspnea Enlarged prostate Esophagitis H/O Family history of stress Gastritis Hammer toe Right second and third toes History of blood transfusion 2 units History of ECG (09/30/15) History of echocardiogram 06/03/15 - [facility]. 03/29/19 - [facility]. History of pacemaker (06/20/10) BIOTRONIK MODEL [id number] History of tobacco abuse Stopped Hydrocele (01/30/14) Bilateral large, left greater than right Hyperlipidemia Now on atorvastatin at 20 mg each day Hypotension Beta-aniyah added Lichen planus Low back pain (12/24/06) Lower urinary obstructive symptom Denies history of BPH or urinary obstructive symptoms. States symptoms just started about 6 months ago. Prostate only 2+ today and nontender. Smooth with no nodules. AUA score is 18 today and he has mixed quality of life due to his symptoms. We will check PSA. We will get urine sample with next set of pelvic pain. Lymphadenopathy Perililar. H/O. Malignant neoplasm of bronchus and lung, unspecified site 2011 non-small cell carcinoma Medicare annual wellness visit, initial Nocturnal hypoxemia Overnight pulse ox from August 2020 shows O2 sats <88% for 56 minutes total overnight. Nonsustained ventricular tachycardia Obstructive uropathy Onychomycosis Osteoarthritis Osteoporosis Peripheral vascular disease Asymptomatic, but abnormal MAGALY -0.43 on the right Arterial duplex of bilateral lower extremities ordered Continue statin. Not on aspirin due to being anticoagulated. Right inguinal pain Schatzki's ring Sinus node dysfunction Pacemaker Squamous cell carcinoma lung Vasovagal syncope (12/18/05) and collapse Weight loss Surgical History History of biopsy (09/15/07) right flank lesion History of bronchoscopy (06/01/12) History of colonoscopy (09/06/13) Two polypoid fragments of colonic mucosa with minimal surface hyperplastic change History of esophagogastroduodenoscopy (EGD) (09/07/11) 09/07/11 MICRO: CHRONIC GASTRITIS WITH INTESTINAL METAPLASIA AND FOCAL ACUTE INFLAMMATION. CONSULT: SCHATZKI'S RING, SMALL HIATAL HERNIA, GASTRITIS. 06/30/16 Schatzki's ring dilated and Egan's esophagus. History of exploratory laparotomy 08/03/2022-1. Exploratory laparotomy with resection of sigmoid perforation. 2. End colostomy. 3. Washout and drainage History of lobectomy of lung History of lobectomy of lung 06/11 RIGHT LOWER LOBE followed by chemotherapy History of lung biopsy (05/02/12) History of surgery (06/01/12) Mediastinoscopy History of thoracotomy (06/01/12) RIGHT LOWER LOBE WAS RESECTED THRU A LIMITED RIGHT THORACOTOMY History of tonsillectomy S/P AAA repair (~2012) Status post-operative repair of closed fracture of left hip 2010 hemiarthroplasty Family History Mother , age 76 Diabetes mellitus Heart disease Father , age 61 Heart disease Peptic ulcer Brother CAD (coronary artery disease) Social History household members: spouse housing: house lives independently: Yes marital status: occupational status: retired smoking status: Former smoker alcohol intake frequency: 0-2 drinks per day substance use type: does not use MEDS/ALLERGIES Home Medications and Allergies Home Medications Medication Instructions Recorded Confirmed Type acetaminophen 325 mg tablet 650 mg PO QDAY PRN Pain 06/07/16 11/17/22 History (Tylenol) lactobac cmb #[id number] 1 cap PO QDAY 06/07/16 11/17/22 History [Probiotic and Acidophilus] atorvastatin 20 mg tablet 20 mg PO QDAY 04/03/19 11/17/22 History apixaban 5 mg tablet 5 mg PO BID 09/15/20 11/17/22 History tamsulosin 0.4 mg capsule 0.4 mg PO QDAY #90 caps 11/09/21 11/17/22 Rx metoprolol succinate 50 mg 50 mg PO QDAY 03/18/22 11/17/22 History tablet,extended release 24 hr magnesium oxide 400 mg PO QDAY 06/09/22 11/17/22 History albuterol sulfate 90 mcg/actuation 2 puff inhalation BID 10/21/22 11/17/22 History aerosol inhaler (Ventolin HFA) Oxygen 11/16/22 11/17/22 History Allergies Allergy/AdvReac Type Severity Reaction Status Date / Time codeine AdvReac Mild Nausea Verified 12/23/22 14:49 Physical Examination Vital Signs Vital signs: Temp Pulse Resp BP Pulse Ox O2 Del Method O2 Flow Rate 98.6 F 40 L 19 107/92 83 L Nasal Cannula 4 12/23/22 14:47 12/23/22 17:33 12/23/22 14:47 12/23/22 17:33 12/23/22 17:33 12/23/22 17:33 12/23/22 17:33 General physical appearance General physical exam: well developed, no distress and cachectic Eyes Eye exam: PERRL and normal ocular movement ENT ENT exam: normal pinna, normal nares, normal mucosa, no hearing loss and no congestion Head Head exam IM: Present atraumatic and normocephalic Neck Neck exam: no masses, no bruits, trachea midline, no lymphadenopathy and no venous distension Cardiovascular Cardiovascular exam IM: Present normal rate and rhythm Respiratory Respiratory exam: normal expansion, normal respiratory effort, clear to percussion and clear to auscultation Abdomen Abdomen: Present soft, non tender, bowel sounds and distended; Absent masses, guarding, rigid or rebound Hernia: Present none Genitourinary Genitourinary (Male): Present normal penis with no external lesions Rectum Rectum: Present normal sphincter tone, no hemorrhoids, no tenderness, no masses and no bleeding Integumentary Integumentary: Present no rash, no growths and no abnormal pigmentation Neurologic Neurologic: Present normal coordination and normal sensation Musculoskeletal Musculoskeletal: Present normal gait and normal posture Psychiatric Psychiatric: Present oriented to time, oriented to person, oriented to place, speech is normal and memory intact Results Labs 12/23/22 15:47 Labs: Abnormal lab results 12/23/22 12/23/22 12/23/22 Range/Units 15:46 15:46 15:47 WBC 4.4 L (4.5-11.0) K/mcL Hgb 13.6 L (13.7-17.5) g/dL RDW 15.0 H (11.5-14.5) % Neut % (Auto) 80.0 H (38.0-78.0) % Lymph # (Auto) 0.77 L (1.50-4.80) K/mcL ABG Methemoglobin 0.2 L (0.4-1.5) % VBG pO2 40.8 H (25.0-40.0) mmHg VBG Lactic Acid (0.5-2.0) mmol/L Carboxyhemoglobin 3.7 H (0.0-1.5) % THgb POC Total CO2 (22-30) POC BUN (6-20) POC Glucose (70-105) Alkaline Phosphatase 141 H (39-117) U/L 12/23/22 12/23/22 Range/Units 15:47 15:56 WBC (4.5-11.0) K/mcL Hgb (13.7-17.5) g/dL RDW (11.5-14.5) % Neut % (Auto) (38.0-78.0) % Lymph # (Auto) (1.50-4.80) K/mcL ABG Methemoglobin (0.4-1.5) % VBG pO2 (25.0-40.0) mmHg VBG Lactic Acid 2.2 H (0.5-2.0) mmol/L Carboxyhemoglobin (0.0-1.5) % THgb POC Total CO2 31.0 H (22-30) POC BUN 27 H (6-20) POC Glucose 127 H (70-105) Alkaline Phosphatase (39-117) U/L Diabetes panel 12/23/22 Range/Units 15:46 AST 16 (<40) U/L ALT 12 (<40) U/L Alkaline Phosphatase 141 H (39-117) U/L Total Protein 8.0 (5.9-8.4) gm/dL Albumin 4.4 (3.2-5.2) gm/dL Calcium panel 12/23/22 Range/Units 15:46 Albumin 4.4 (3.2-5.2) gm/dL Adrenal panel 12/23/22 Range/Units 15:46 Total Bilirubin 0.4 (0.1-1.0) mg/dL AST 16 (<40) U/L ALT 12 (<40) U/L Alkaline Phosphatase 141 H (39-117) U/L Total Protein 8.0 (5.9-8.4) gm/dL Albumin 4.4 (3.2-5.2) gm/dL All other labs normal. Imaging CT scan - abdomen: image reviewed A/P Assessment and plan (1) Colostomy in place: Status: Chronic (2) Bowel obstruction: Status: Acute (3) Hypoxia: Status: Acute (4) Exertional dyspnea: Status: Acute (5) Atrial fibrillation: Status: Acute (6) CAD (coronary artery disease): Status: Chronic Comment: Mild to moderate nonobstructive CAD on left heart cath in [place] Qualifiers: Coronary Disease-Associated Artery/Lesion type: elem artery [place] vs. transplanted heart: elem heart Associated angina: without angina Qualified Code(s): I25.10 - Atherosclerotic heart disease of elem coronary ar neela without angina pectoris (7) COPD (chronic obstructive pulmonary disease): Status: Chronic Qualifiers: COPD type: unspecified COPD Qualified Code(s): J44.9 - Chronic obstructive pulmonary disease, unspecified Plan This is a pleasant 87-year-old gentleman with a significant past medical history of COPD, A-fib, coronary artery disease who is on oxygen who presents with mild, early partial small bowel obstruction. Patient has had prior episodes, all resolved conservatively. Patient and family is not sure if he would want surgical intervention even if it was necessary. Given his significant past medical problems and the fact that his bowel obstructions have all resolved conservatively in the past do not feel that patient is a surgical candidate, however should be admitted and treated conservatively for his bowel obstruction with a surgical consult. Given his significant medical problems if the patient needed to undergo surgical intervention a hospital with cardiology, pulmonary, and ability to care for patient in the ICU postop would be more appropriate. Thank you very much for this consultation, please call with any questions. Time Spent With Patient Time: Total time spent is greater than 50% in coordination of care (as documented) at patient's floor/unit and/or counseling patient:
[2022-12-23 20:50] LABS: Appearance,Urine CLEAR (Clear); Bilirubin,Urine Negative (Negative); Color,Urine YELLOW; Culture Indicated,Urine No; Glucose,Urine (UA) Negative (Negative); Ketones,Urine 5 mg/dL (Negative); Leukocyte Esterase,Urine Negative /uL (Negative); Mucus,Urine FEW /hpf; Nitrate,Urine Negative (Negative); Protein,Urine Negative (Negative); Specific Gravity,Urine 1.041 (1.000-1.035); Urine Blood Negative (Negative); Urine Hyaline Cast 4 /lph (0-2); Urine RBC 2 /hpf (0-3); Urine Squamous Epithelial Cell 0 /hpf (0-4); Urine WBC 1 /hpf (0-4); Urobilinogen,Urine Negative
[2022-12-24] MEDS ORDERED: METOPROLOL TARTRATE 5 MG/5 ML VIAL IV ONE (03:21)
--- NOTE | 2022-12-24 04:32 | Emergency Department Note ---
Course Course Course Narrative: Patient is an 87-year-old male who was being treated primarily by William Kwon and signed out to me at the end of his shift. Briefly, patient was found to have a small bowel obstruction. Attempts were made to admit patient at [facility], but unfortunately there was concern that patient would require transfer. Transfer was pending at signout. Vital Signs Vital signs: Vital Signs Temperature 98.6 F 12/23/22 14:47 Pulse Rate 118 H 12/23/22 14:47 Respiratory Rate 19 12/23/22 14:47 Blood Pressure 108/74 12/23/22 14:47 Pulse Oximetry (%) 92 12/23/22 14:47 Oxygen Delivery Method Nasal Cannula 12/23/22 14:47 Oxygen Flow Rate (L/min) 2 12/23/22 14:47 Temperature 98.6 F 12/23/22 14:47 Pulse Rate 41 L 12/24/22 09:46 Respiratory Rate 19 12/24/22 10:16 Blood Pressure 91/65 12/24/22 10:16 Pulse Oximetry (%) 99 12/24/22 09:46 Oxygen Delivery Method Nasal Cannula 12/23/22 17:33 Oxygen Flow Rate (L/min) 4 12/23/22 17:33 [facility] MDM Narrative Medical decision making narrative: Narrative: Patient is an 87-year-old male who presents to the emergency department with small bowel obstruction. Patient has an NG tube in place that is putting out feculent appearing material. We were attempting transfer, but unfortunately were placed on wait list, or were told that we could not transfer due to it being a lateral transfer. Patient's family made mention that he had been seen by Dr. Cohen previously. Because patient has been admitted previously by Dr. Cohen I did call and speak to him. He reviewed the patient's chart, then called back and has accepted patient for admission. Lab Data 12/23/22 15:47 Labs: Lab Results 12/23/22 12/23/22 12/23/22 Range/Units 15:46 15:46 15:47 WBC 4.4 L (4.5-11.0) K/mcL RBC 4.65 (4.63-6.08) M/mcL Hgb 13.6 L (13.7-17.5) g/dL Hct 42.7 (40.1-51.0) % POC Hct (41-55) MCV 91.8 (80.0-100.0) fL MCH 29.2 (26.0-34.0) pg MCHC 31.9 (31.0-36.0) g/dL RDW 15.0 H (11.5-14.5) % Plt Count 288 (140-440) K/mcL MPV 10.1 (8.8-12.5) fL Immature Gran % (Auto) 0.2 (0.0-0.5) % Neut % (Auto) 80.0 H (38.0-78.0) % Lymph % (Auto) 17.3 (15.5-49.0) % [place] % (Auto) 2.3 (1.0-12.0) % Eos % (Auto) 0.2 (0.0-7.0) % Baso % (Auto) 0 (0.0-2.0) % Lymph # (Auto) 0.77 L (1.50-4.80) K/mcL [place] # (Auto) 0.10 (0.10-0.90) K/mcL Eos # (Auto) 0.01 (0.00-0.70) K/mcL Baso # (Auto) 0 (0.00-0.30) K/mcL Immature Gran # 0.01 (0.00-0.05) K/mcl Absolute Neutrophils 3.55 (1.80-8.00) K/mcL ABG Methemoglobin 0.2 L (0.4-1.5) % VBG pH 7.34 (7.32-7.42) U VBG pCO2 46.2 (41.0-51.0) mmHg VBG pO2 40.8 H (25.0-40.0) mmHg VBG HCO3 24.5 (24.0-28.0) mmol/L VBG Total CO2 26.0 (25.0-29.0) mmol/L VBG O2 Saturation 70.0 (40.0-70.0) % VBG Base Excess -2 (-2-3) VBG Lactic Acid (0.5-2.0) mmol/L Carboxyhemoglobin 3.7 H (0.0-1.5) % THgb Total Hemoglobin 15.0 (13.5-16.5) gm/Dl POC Sodium (133-145) POC Potassium (3.3-5.1) POC Chloride (96-108) POC Total CO2 (22-30) POC BUN (6-20) POC Creatinine (0.6-1.2) POC Glucose (70-105) POC WB Ioniz Calcium (1.16-1.32) Magnesium 2.0 (1.6-2.5) mg/dL Total Bilirubin 0.4 (0.1-1.0) mg/dL Direct Bilirubin < 0.2 (0-0.3) mg/dL AST 16 (<40) U/L ALT 12 (<40) U/L Alkaline Phosphatase 141 H (39-117) U/L Total Protein 8.0 (5.9-8.4) gm/dL Albumin 4.4 (3.2-5.2) gm/dL Globulin 3.6 (2.2-3.7) gm/dL Lipase 29 (7-60) U/L Procalcitonin (<0.10) ng/mL Urine Color Urine Appearance (Clear) Urine pH (5.0-9.0) Ur Specific [place] (1.000-1.035) Urine Protein (Negative) mg/dL Urine Glucose (UA) (Negative) mg/dL Urine Ketones (Negative) mg/dL Urine Occult Blood (Negative) mg/dL Urine Nitrate (Negative) Urine Bilirubin (Negative) mg/dL Urine Urobilinogen mg/dL Ur Leukocyte Esterase (Negative) /uL Urine RBC (0-3) /hpf Urine WBC (0-4) /hpf Ur Squamous Epith Cells (0-4) /hpf Urine Bacteria (0) /hpf Hyaline Casts (0-2) /lph Urine Mucus (None) /hpf Ur Culture Indicated? 12/23/22 12/23/22 12/23/22 Range/Units 15:47 15:47 15:56 WBC (4.5-11.0) K/mcL RBC (4.63-6.08) M/mcL Hgb (13.7-17.5) g/dL Hct (40.1-51.0) % POC Hct 45.0 (41-55) MCV (80.0-100.0) fL MCH (26.0-34.0) pg MCHC (31.0-36.0) g/dL RDW (11.5-14.5) % Plt Count (140-440) K/mcL MPV (8.8-12.5) fL Immature Gran % (Auto) (0.0-0.5) % Neut % (Auto) (38.0-78.0) % Lymph % (Auto) (15.5-49.0) % [place] % (Auto) (1.0-12.0) % Eos % (Auto) (0.0-7.0) % Baso % (Auto) (0.0-2.0) % Lymph # (Auto) (1.50-4.80) K/mcL [place] # (Auto) (0.10-0.90) K/mcL Eos # (Auto) (0.00-0.70) K/mcL Baso # (Auto) (0.00-0.30) K/mcL Immature Gran # (0.00-0.05) K/mcl Absolute Neutrophils (1.80-8.00) K/mcL ABG Methemoglobin (0.4-1.5) % VBG pH (7.32-7.42) U VBG pCO2 (41.0-51.0) mmHg VBG pO2 (25.0-40.0) mmHg VBG HCO3 (24.0-28.0) mmol/L VBG Total CO2 (25.0-29.0) mmol/L VBG O2 Saturation (40.0-70.0) % VBG Base Excess (-2-3) VBG Lactic Acid 2.2 H (0.5-2.0) mmol/L Carboxyhemoglobin (0.0-1.5) % THgb Total Hemoglobin (13.5-16.5) gm/Dl POC Sodium 139 (133-145) POC Potassium 4.9 (3.3-5.1) POC Chloride 102 (96-108) POC Total CO2 31.0 H (22-30) POC BUN 27 H (6-20) POC Creatinine 0.8 (0.6-1.2) POC Glucose 127 H (70-105) POC WB Ioniz Calcium 1.18 (1.16-1.32) Magnesium (1.6-2.5) mg/dL Total Bilirubin (0.1-1.0) mg/dL Direct Bilirubin (0-0.3) mg/dL AST (<40) U/L ALT (<40) U/L Alkaline Phosphatase (39-117) U/L Total Protein (5.9-8.4) gm/dL Albumin (3.2-5.2) gm/dL Globulin (2.2-3.7) gm/dL Lipase (7-60) U/L Procalcitonin 0.08 (<0.10) ng/mL Urine Color Urine Appearance (Clear) Urine pH (5.0-9.0) Ur Specific [place] (1.000-1.035) Urine Protein (Negative) mg/dL Urine Glucose (UA) (Negative) mg/dL Urine Ketones (Negative) mg/dL Urine Occult Blood (Negative) mg/dL Urine Nitrate (Negative) Urine Bilirubin (Negative) mg/dL Urine Urobilinogen mg/dL Ur Leukocyte Esterase (Negative) /uL Urine RBC (0-3) /hpf Urine WBC (0-4) /hpf Ur Squamous Epith Cells (0-4) /hpf Urine Bacteria (0) /hpf Hyaline Casts (0-2) /lph Urine Mucus (None) /hpf Ur Culture Indicated? 12/23/22 Range/Units 20:14 WBC (4.5-11.0) K/mcL RBC (4.63-6.08) M/mcL Hgb (13.7-17.5) g/dL Hct (40.1-51.0) % POC Hct (41-55) MCV (80.0-100.0) fL MCH (26.0-34.0) pg MCHC (31.0-36.0) g/dL RDW (11.5-14.5) % Plt Count (140-440) K/mcL MPV (8.8-12.5) fL Immature Gran % (Auto) (0.0-0.5) % Neut % (Auto) (38.0-78.0) % Lymph % (Auto) (15.5-49.0) % [place] % (Auto) (1.0-12.0) % Eos % (Auto) (0.0-7.0) % Baso % (Auto) (0.0-2.0) % Lymph # (Auto) (1.50-4.80) K/mcL [place] # (Auto) (0.10-0.90) K/mcL Eos # (Auto) (0.00-0.70) K/mcL Baso # (Auto) (0.00-0.30) K/mcL Immature Gran # (0.00-0.05) K/mcl Absolute Neutrophils (1.80-8.00) K/mcL ABG Methemoglobin (0.4-1.5) % VBG pH (7.32-7.42) U VBG pCO2 (41.0-51.0) mmHg VBG pO2 (25.0-40.0) mmHg VBG HCO3 (24.0-28.0) mmol/L VBG Total CO2 (25.0-29.0) mmol/L VBG O2 Saturation (40.0-70.0) % VBG Base Excess (-2-3) VBG Lactic Acid (0.5-2.0) mmol/L Carboxyhemoglobin (0.0-1.5) % THgb Total Hemoglobin (13.5-16.5) gm/Dl POC Sodium (133-145) POC Potassium (3.3-5.1) POC Chloride (96-108) POC Total CO2 (22-30) POC BUN (6-20) POC Creatinine (0.6-1.2) POC Glucose (70-105) POC WB Ioniz Calcium (1.16-1.32) Magnesium (1.6-2.5) mg/dL Total Bilirubin (0.1-1.0) mg/dL Direct Bilirubin (0-0.3) mg/dL AST (<40) U/L ALT (<40) U/L Alkaline Phosphatase (39-117) U/L Total Protein (5.9-8.4) gm/dL Albumin (3.2-5.2) gm/dL Globulin (2.2-3.7) gm/dL Lipase (7-60) U/L Procalcitonin (<0.10) ng/mL Urine Color Yellow Urine Appearance Clear (Clear) Urine pH 6.0 (5.0-9.0) Ur Specific [place] 1.041 (1.000-1.035) Urine Protein Negative (Negative) mg/dL Urine Glucose (UA) Negative (Negative) mg/dL Urine Ketones 5 A (Negative) mg/dL Urine Occult Blood Negative (Negative) mg/dL Urine Nitrate Negative (Negative) Urine Bilirubin Negative (Negative) mg/dL Urine Urobilinogen Negative mg/dL Ur Leukocyte Esterase Negative (Negative) /uL Urine RBC 2 (0-3) /hpf Urine WBC 1 (0-4) /hpf Ur Squamous Epith Cells 0 (0-4) /hpf Urine Bacteria None (0) /hpf Hyaline Casts 4 H (0-2) /lph Urine Mucus Few A (None) /hpf Ur Culture Indicated? No ED POC Tests ED POC Tests: JARAD - SARS Antigen Negative Discharge Plan Patient/Caregiver Discharge Instructions Pt seen by MENTAL RETARDATION NURSE/PA only: No Clinical Impression: Small bowel obstruction Patient Disposition: Xfer As Inpt ([facility]) Follow up with: Sai Elizabeth DO [Primary Care Provider] - Prescriptions: No Action tamsulosin 0.4 mg capsule 0.4 mg PO QDAY Qty: 90 3RF acetaminophen [Tylenol] 325 mg tablet 650 mg PO QDAY PRN (Reason: Pain) lactobac cmb #[id number] 1 cap PO QDAY atorvastatin 20 mg tablet 20 mg PO QDAY apixaban 5 mg tablet 5 mg PO BID metoprolol succinate 50 mg tablet extended release 24 hr 50 mg PO QDAY magnesium oxide 400 mg magnesium capsule 400 mg PO QDAY albuterol sulfate [Ventolin HFA] 90 mcg/actuation HFA aerosol inhaler 2 puff inhalation BID Patient Comments: [NO ORIGINAL SIG] (DME) Oxygen See Rx Instructions Rx Instructions: Per patient's son, patient has been using oxygen at all times.-dt
--- NOTE | 2022-12-24 07:53 | XRay Report ---
HISTORY: Nasogastric tube insertion FINDINGS: NG tube is located in the body the stomach, with the tip along the wall of the greater curvature. The sidehole is at the level of the cardia. The stomach is decompressed. There are dilated loops of small bowel in the upper abdomen due to small bowel obstruction. There are vague infiltrates in both lung bases. IMPRESSION: Well-positioned nasogastric tube Interpreted and Authenticated by: Ricky Wang 12/24/22
[2022-12-24] MEDS ORDERED: ONDANSETRON 4 MG/2 ML VIAL IV PRN (10:34)
[2022-12-24] MEDS ORDERED: LACTATED RINGERS 1,000 ML IV SCH (10:45)
--- NOTE | 2022-12-24 13:34 | General Surg History&Physical ---
HPI History of Present Illness Patient information: Note initiated : 12/24/22 at 1:18 pm Service Date, if different from initiated Date: [] Patient: Fei Rodrigues a 87 y/o M admitted on 12/24/22 for Stomach Pain. Chief Complaint: [] Chief complaint: Abdominal pain with recurrent nausea & vomiting History of present illness: Mr. Rodrigues is a 87 year old M who was admitted via the emergency room for suspected partial small bowel obstruction. The patient has a history of colonic perforation while undergoing colostomy on 03 August 2022. He had a segmental sigmoid resection with end colostomy performed by Dr. Mcfarland. In August he developed profuse diarrhea and was C. difficile toxin positive. He was treated at a alf facility and in September he developed distended abdomen with CT evidence of dilated stomach and small bowel extending to the terminal ileum. He has had increasing abdominal pain with nausea and vomiting. According to available notes he has had 1800 cc of output through his nasogastri c tube. Patient states that he feels better at this time. Arrangements were made to have him transferred to a higher level of care but no bed is available so he is admitted to this facility. I discussed openly with the patient about his expectations. He states that he does not wish to have surgery even if it is needed. He is advised that if he does not have surgery that the potential for demise is significant. He wishes to wait and discuss this with his son. Patient is admitted and will have nonoperative management unless he demonstrates complete small bowel obstruction. Constitutional Constitutional: Present anorexia, fatigue, lethargy, malaise, weakness and weight loss Cardiovascular Cardiovascular: Present dyspnea and dyspnea on exertion Gastrointestinal Gastrointestinal: Present abdominal pain, change in bowel habits, change in stool character, cramping, early satiety, nausea and vomiting Musculoskeletal Musculoskeletal: Present abnormal gait, arthralgias and muscle cramps Neurological Neurological: Present abnormal hearing and weakness PFSH PFSH All Active Problems Colostomy in place (Chronic) History of intestinal obstruction (Acute) Bowel obstruction (Acute) Small bowel obstruction (Acute) Hypoxia (Acute) Exertional dyspnea (Acute) Partial obstruction of small intestine (Acute) Dehydration (Acute) Pneumonia (Acute) C. difficile diarrhea (Acute) Complete obstruction of small intestine (Acute) Anemia, normocytic normochromic (Acute) Atrial fibrillation (Acute) Colon perforation (Acute) Nausea (Acute) Tingling sensation (Acute) Hemarthrosis of knee, right (Acute) Knee injury (Acute) Unstable right knee (Acute) Pain and swelling of right knee (Acute) Medicare annual wellness visit, initial (Acute) PAF (paroxysmal atrial fibrillation) (Chronic) Sinus node dysfunction (Chronic) Nonsustained ventricular tachycardia (Chronic) Lower urinary obstructive symptom (Chronic) BPH w urinary obs/LUTS (Chronic) Diarrhea (Chronic) Closed rib fracture (Acute) CAD (coronary artery disease) (Chronic) Ventricular tachycardia (Acute) Syncope, near (Acute) Hearing loss (Chronic) Cataracts, bilateral (Chronic) Vertigo (Chronic) Malignant neoplasm of bronchus and lung, unspecified site (Chronic) Positional vertigo (Acute) Presence of cardiac pacemaker (Chronic) Bilateral hydrocele (Chronic) Malignant neoplasm of lung (Chronic) Bruit of left carotid artery (Chronic) Weight loss (Chronic) Vasovagal syncope (Chronic 12/18/05) Acute sinusitis (Chronic 02/05/14) Schatzki's ring (Chronic) Lymphadenopathy (Chronic) Peripheral vascular disease (Chronic) Osteoporosis (Chronic) Osteoarthritis (Chronic) Onychomycosis (Chronic) Obstructive uropathy (Chronic) Lichen planus (Chronic) Right inguinal pain (Chronic) Accelerated idioventricular rhythm (Chronic) Nocturnal hypoxemia (Chronic) Hypotension (Chronic) Hyperlipidemia (Chronic) Hydrocele (Chronic 11/29/13) Hammer toe (Chronic) Family history of stress (Chronic) Esophagitis (Chronic) Enlarged prostate (Chronic) Dyspnea (Chronic) Dysphagia (Chronic 11/29/13) Dupuytren's contracture (Chronic) Depression (Chronic) Colon adenoma (Chronic) COPD (chronic obstructive pulmonary disease) (Chronic) Chronic bronchitis (Chronic) Bradycardia (Chronic 12/18/05) Low back pain (Chronic 12/24/06) Actinic keratosis (Chronic) Anemia (Chronic) Abdominal aortic aneurysm (AAA) (Chronic) Medical History Abdominal aortic aneurysm (AAA) Aortic endograft Accelerated idioventricular rhythm Actinic keratosis Acute sinusitis (02/05/14) Anemia BPH w urinary obs/LUTS Improved greatly with Flomax 0.4 mg daily. Bradycardia (12/18/05) Sinus of unknown origina Chronic bronchitis Closed fracture of wrist 10/10 right Closed hip fracture left Closed skull fracture (12/18/05) fell and hit head on the toilet, passed out. Colon adenoma 2004 COPD (chronic obstructive pulmonary disease) Depression Diarrhea Dupuytren's contracture Dysphagia (11/29/13) recurrent Dyspnea Enlarged prostate Esophagitis H/O Family history of stress Gastritis Hammer toe Right second and third toes History of blood transfusion 2 units History of ECG (09/30/15) History of echocardiogram 06/03/15 - [facility]. 03/29/19 - [facility]. History of pacemaker (06/20/10) BIOTRONIK MODEL [id number] History of tobacco abuse Stopped Hydrocele (11/29/13) Bilateral large, left greater than right Hyperlipidemia Now on atorvastatin at 20 mg each day Hypotension Beta-aniyah added Lichen planus Low back pain (12/24/06) Lower urinary obstructive symptom Denies history of BPH or urinary obstructive symptoms. States symptoms just started about 6 months ago. Prostate only 2+ today and nontender. Smooth with no nodules. AUA score is 18 today and he has mixed quality of life due to his symptoms. We will check PSA. We will get urine sample with next set of pelvic pain. Lymphadenopathy Perililar. H/O. Malignant neoplasm of bronchus and lung, unspecified site 2011 non-small cell carcinoma Medicare annual wellness visit, initial Nocturnal hypoxemia Overnight pulse ox from August 2020 shows O2 sats <88% for 56 minutes total overnight. Nonsustained ventricular tachycardia Obstructive uropathy Onychomycosis Osteoarthritis Osteoporosis Peripheral vascular disease Asymptomatic, but abnormal MAGALY -0.43 on the right Arterial duplex of bilateral lower extremities ordered Continue statin. Not on aspirin due to being anticoagulated. Right inguinal pain Schatzki's ring Sinus node dysfunction Pacemaker Squamous cell carcinoma lung Vasovagal syncope (12/18/05) and collapse Weight loss Surgical History History of biopsy (09/15/07) right flank lesion History of bronchoscopy (06/01/12) History of colonoscopy (09/06/13) Two polypoid fragments of colonic mucosa with minimal surface hyperplastic change History of esophagogastroduodenoscopy (EGD) (09/07/11) 09/07/11 MICRO: CHRONIC GASTRITIS WITH INTESTINAL METAPLASIA AND FOCAL ACUTE INFLAMMATION. CONSULT: SCHATZKI'S RING, SMALL HIATAL HERNIA, GASTRITIS. 06/30/16 Schatzki's ring dilated and Egan's esophagus. History of exploratory laparotomy 08/03/2022-1. Exploratory laparotomy with resection of sigmoid perforation. 2. End colostomy. 3. Washout and drainage History of lobectomy of lung History of lobectomy of lung 06/11 RIGHT LOWER LOBE followed by chemotherapy History of lung biopsy (05/02/12) History of surgery (06/01/12) Mediastinoscopy History of thoracotomy (06/01/12) RIGHT LOWER LOBE WAS RESECTED THRU A LIMITED RIGHT THORACOTOMY History of tonsillectomy S/P AAA repair (~2012) Status post-operative repair of closed fracture of left hip 2009 hemiarthroplasty Family History Mother , age 76 Diabetes mellitus Heart disease Father , age 61 Heart disease Peptic ulcer Brother CAD (coronary artery disease) Social History household members: spouse housing: house lives independently: Yes marital status: occupational status: retired smoking status: Former smoker alcohol intake frequency: 0-2 drinks per day substance use type: does not use MEDS/ALLERGIES Home Medications and Allergies Home Medications Medication Instructions Recorded Confirmed Type acetaminophen 325 mg tablet 650 mg PO QDAY PRN Pain 06/07/16 11/17/22 History (Tylenol) lactobac cmb #[id number] 1 cap PO QDAY 06/07/16 11/17/22 History [Probiotic and Acidophilus] atorvastatin 20 mg tablet 20 mg PO QDAY 04/03/19 11/17/22 History apixaban 5 mg tablet 5 mg PO BID 09/15/20 11/17/22 History tamsulosin 0.4 mg capsule 0.4 mg PO QDAY #90 caps 11/09/21 11/17/22 Rx metoprolol succinate 50 mg 50 mg PO QDAY 03/18/22 11/17/22 History tablet,extended release 24 hr magnesium oxide 400 mg PO QDAY 06/09/22 11/17/22 History albuterol sulfate 90 mcg/actuation 2 puff inhalation BID 10/21/22 11/17/22 History aerosol inhaler (Ventolin HFA) Oxygen 11/16/22 11/17/22 History Allergies Allergy/AdvReac Type Severity Reaction Status Date / Time codeine AdvReac Mild Nausea Verified 12/23/22 14:49 Physical Examination Vital Signs Vital signs: Temp Pulse Resp BP Pulse Ox O2 Del Method O2 Flow Rate 97.8 F 98 H 20 91/72 97 Nasal Cannula 4 12/24/22 12:41 12/24/22 12:41 12/24/22 12:41 12/24/22 12:41 12/24/22 12:41 12/24/22 12:41 12/24/22 12:41 General physical appearance General physical exam: no distress, no pain, cachectic and chronically ill Eyes Eye exam: PERRL and normal ocular movement ENT ENT exam: decreased hearing and other (Edentulous for) Head Head exam IM: Present atraumatic, normal inspection and normocephalic Neck Neck exam: no masses, no bruits, trachea midline, no lymphadenopathy and no venous distension Cardiovascular Cardiovascular exam IM: Present normal rate and rhythm, RRR, +S1, +S2 and tachycardia (Heart rate 110); Absent JVD Respiratory Respiratory exam: normal expansion, normal respiratory effort, clear to auscultation and other (Good breath sounds bilaterally) Abdomen Abdomen: Present soft, bowel sounds (Hypoactive bowel sounds) and distended (Mild distention but pliable); Absent tender or guarding Integumentary Integumentary: Present no rash, no growths and no abnormal pigmentation Neurologic Neurologic: Present normal sensation Musculoskeletal Musculoskeletal: Present normal gait and normal posture Psychiatric Psychiatric: Present oriented to time, oriented to person, oriented to place, speech is normal and memory intact Results Labs 12/23/22 15:47 Labs: Abnormal lab results 12/23/22 12/23/22 12/23/22 Range/Units 15:46 15:46 15:47 WBC 4.4 L (4.5-11.0) K/mcL Hgb 13.6 L (13.7-17.5) g/dL RDW 15.0 H (11.5-14.5) % Neut % (Auto) 80.0 H (38.0-78.0) % Lymph # (Auto) 0.77 L (1.50-4.80) K/mcL ABG Methemoglobin 0.2 L (0.4-1.5) % VBG pO2 40.8 H (25.0-40.0) mmHg VBG Lactic Acid (0.5-2.0) mmol/L Carboxyhemoglobin 3.7 H (0.0-1.5) % THgb POC Total CO2 (22-30) POC BUN (6-20) POC Glucose (70-105) Alkaline Phosphatase 141 H (39-117) U/L Urine Ketones (Negative) mg/dL Hyaline Casts (0-2) /lph Urine Mucus (None) /hpf 12/23/22 12/23/22 12/23/22 Range/Units 15:47 15:56 20:14 WBC (4.5-11.0) K/mcL Hgb (13.7-17.5) g/dL RDW (11.5-14.5) % Neut % (Auto) (38.0-78.0) % Lymph # (Auto) (1.50-4.80) K/mcL ABG Methemoglobin (0.4-1.5) % VBG pO2 (25.0-40.0) mmHg VBG Lactic Acid 2.2 H (0.5-2.0) mmol/L Carboxyhemoglobin (0.0-1.5) % THgb POC Total CO2 31.0 H (22-30) POC BUN 27 H (6-20) POC Glucose 127 H (70-105) Alkaline Phosphatase (39-117) U/L Urine Ketones 5 A (Negative) mg/dL Hyaline Casts 4 H (0-2) /lph Urine Mucus Few A (None) /hpf Diabetes panel 12/23/22 Range/Units 15:46 AST 16 (<40) U/L ALT 12 (<40) U/L Alkaline Phosphatase 141 H (39-117) U/L Total Protein 8.0 (5.9-8.4) gm/dL Albumin 4.4 (3.2-5.2) gm/dL Calcium panel 12/23/22 Range/Units 15:46 Albumin 4.4 (3.2-5.2) gm/dL Adrenal panel 12/23/22 Range/Units 15:46 Total Bilirubin 0.4 (0.1-1.0) mg/dL AST 16 (<40) U/L ALT 12 (<40) U/L Alkaline Phosphatase 141 H (39-117) U/L Total Protein 8.0 (5.9-8.4) gm/dL Albumin 4.4 (3.2-5.2) gm/dL All other labs normal. A/P Assessment and plan (1) Colostomy in place: Status: Chronic (2) Partial obstruction of small intestine: Status: Acute (3) Anemia, normocytic normochromic: Status: Acute (4) Atrial fibrillation: Status: Acute (5) CAD (coronary artery disease): Status: Chronic Comment: Mild to moderate nonobstructive CAD on left heart cath in [facility] Qualifiers: Coronary Disease-Associated Artery/Lesion type: [place] artery [place] vs. transplanted heart: [place] heart Associated angina: without angina Qualified Code(s): I25.10 - Atherosclerotic heart disease of [place] coronary artery without angina pectoris (6) Hearing loss: Status: Chronic Comment: Will not wear his hearing aids. Qualifiers: Hearing loss type: unspecified Laterality: bilateral Qualified Code(s): H91.93 - Unspecified hearing loss, bilateral (7) COPD (chronic obstructive pulmonary disease): Status: Chronic Qualifiers: COPD type: unspecified COPD Qualified Code(s): J44.9 - Chronic ob structive pulmonary disease, unspecified Plan NG tube moderate intermittent suction Hydrate with normal saline Echocardiogram Chest x-ray Hold apixaban 2 view abdominal x-rays in the morning Check CBC and inpatient panel in the morning Sepsis Sepsis Identified: No Time Spent With Patient Time: Total time spent is greater than 50% in coordination of care (as documented) at patient's floor/unit and/or counseling patient:
[2022-12-24] MEDS: 0.9 % SODIUM CHLORIDE 1,000 ML IV SCH ×2 (13:46→20:27)
--- NOTE | 2022-12-24 14:13 | XRay Report ---
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 The superimposed pneumonia, most apparent in the central portion of the right lung has nearly resolved since 11/08/22. There is some residual inflammation in the periphery of the right mid thorax. The left lung has returned to baseline. Heart size is normal. Pacemaker remains well-positioned. There is an NG tube passing through the esophagus into the stomach. IMPRESSION: Resolving pneumonia with underlying severe pulmonary fibrosis Interpreted and Authenticated by: Ricky Wang 12/24/22
[2022-12-24] MEDS: METOCLOPRAMIDE 10 MG/2 ML VIAL IV SCH (17:18)
[2022-12-25] MEDS: METOCLOPRAMIDE 10 MG/2 ML VIAL IV SCH ×4 (00:50→17:24)
[2022-12-25] MEDS: 0.9 % SODIUM CHLORIDE 1,000 ML IV SCH ×3 (03:05→17:24)
[2022-12-25] MEDS ORDERED: POLYETHYLENE GLYCOL 3350 17 GM PACKET PO ONE (09:00)
[2022-12-25] MEDS ORDERED: MAGNESIUM CITRATE 300 ML ORAL.SOL PO ONE (10:00)
[2022-12-25 10:02] LABS: Basophils # (Auto) 0.01 K/mcL (0.00-0.30); Basophils % (Auto) 0.1 % (0.0-2.0); Eosinophils # (Auto) 0.02 K/mcL (0.00-0.70); Eosinophils % (Auto) 0.1 % (0.0-7.0); Hematocrit 41.4 % (40.1-51.0); Hemoglobin 12.8 g/dL (13.7-17.5); Lymphocytes # (Auto) 0.88 K/mcL (1.50-4.80); Lymphocytes % (Auto) 6.3 % (15.5-49.0); Mean Cell Volume 95.4 fL (80.0-100.0); Mean Corpuscular HGB Conc 30.9 g/dL (31.0-36.0); Mean Platelet Volume 9.8 fL (8.8-12.5); Monocytes # (Auto) 1.28 K/mcL (0.10-0.90); Monocytes % (Auto) 9.2 % (1.0-12.0); Neutrophils % (Auto) 83.5 % (38.0-78.0); Platelet Count 221 K/mcL (140-440); RBC 4.34 M/mcL (4.63-6.08); Red Cell Distribution Width 15.2 % (11.5-14.5)
[2022-12-25 10:23] LABS: ALT/SGPT 8 U/L (<40); AST/SGOT 10 U/L (<40); Albumin 3.6 gm/dL (3.2-5.2); Albumin/Globulin Ratio 1.1 (1.0-2.3); Alkaline Phosphatase 94 U/L (39-117); Bilirubin,Direct < 0.2 mg/dL (0-0.3); Bilirubin,Total 0.4 mg/dL (0.1-1.0); Blood Urea Nitrogen 27 mg/dL (8-23); Calcium 9.1 mg/dL (8.6-10.4); Carbon Dioxide 26 mmol/L (22-30); Chloride 107 mmol/L (96-108); Globulin 3.4 gm/dL (2.2-3.7); Glomerular Filtration Rate 80; Glucose 95 mg/dL (70-105); Lactate Dehydrogenase 176 U/L (135-225); Phosphorous 2.5 mg/dL (2.5-4.5); Triglycerides 79 mg/dL (<150)
--- NOTE | 2022-12-25 10:25 | XRay Report ---
HISTORY: Small bowel obstruction FINDINGS: Supine and erect views were obtained. There is a dilated segment of small bowel in the left upper quadrant measuring 5.5 cm diameter. It Contains an air-fluid level. Most of the other loops of small bowel have decompressed since the prior CT done on 12/23/22. There is a nasogastric tube in the fundus of the stomach. The stomach is decompressed. There are persistent infiltrates or pulmonary fibrosis in both lung bases. IMPRESSION: improving small bowel obstruction Interpreted and Authenticated by: Ricky Wang 12/25/22
[2022-12-25] MEDS ORDERED: MAGNESIUM HYDROXIDE 30 ML ORAL.SUSP PO ONE (11:40)
--- NOTE | 2022-12-25 12:33 | General Surgery Progress Note ---
SUBJECTIVE Subjective Patient information: Note initiated : 12/25/22 at 12:28 pm Service Date, if different from initiated Date: [] Patient: Fei Rodrigues 87 y/o M admitted on 12/24/22 for Stomach Pain. Chief Complaint: [] Principal diagnosis: Partial small bowel obstruction Interval history: Patient has done well. He started having output via his stoma earlier this morning. He is put out 1000 cc since that time. All labs are basically normal except for BUN of 27 mg. He denies complaint of abdominal pain. Abdominal x- rays shows decrease gas in small bowel with increased gas in colon. Constitutional Vitals: Vital Signs Temp Pulse Resp BP Pulse Ox O2 Del Method O2 Flow Rate 97.2 F 69 14 122/58 100 Room Air 4 12/25/22 08:00 12/25/22 08:00 12/25/22 08:00 12/25/22 08:00 12/25/22 08:00 12/25/22 08:00 12/25/22 04:00 Period Temp Pulse Resp BP Sys/[place] Pulse Ox O2 Del Method O2 Flow Rate Last 24 Hr 97.1 F-98.6 F 63-118 14-20 91-128/58-83 92-100 Nasal Cannula- Room Air 1-4 Intake and Output 12/25/22 12/25/22 12/25/22 03:59 11:59 19:59 Intake Total 1994 1050 Output Total 175 1950 Balance 1820 -900 Weight 127 lb 2 oz Intake & Output: Intake & Output 12/25/22 12/25/22 12/25/22 03:59 11:59 19:59 Intake Total 1994 1050 Output Total 175 1950 Balance 1820 -900 Weight 127 lb 2 oz Intake: IV 1994 1000 Sodium Chloride 0.9% 1,000 ml @ 1994 1000 150 mls/hr IV .Q6H40M [facility] Rx#: [id number] Oral 50 Output: Gastric Drainage 700 Right Nare 700 Void Amount 175 250 Stool 1000 Other: Urine Appearance Clear Urine Color Yellow Dark Yellow Urine Odor Normal Normal Stool Size Moderate Stool Color Brown Yellow Stool Consistency Loose ENT ENT exam: Present mucous membranes moist and normal oropharynx Additional comments: Edentulous Neck Neck exam: Present full ROM and normal inspection; Absent tenderness Respiratory Respiratory exam: Present normal respiratory exam and CTAB Cardiovascular Cardiovascular exam: Present normal rate and rhythm, RRR, +S1 and +S2; Absent JVD GI/Abdominal GI/Abdominal exam: Present normal bowel sounds and soft; Absent distended, guarding or tenderness Additional comments: Patient is abdominal exam is benign. He has good active bowel sounds. There is no tenderness or distention Extremities Exam Extremities exam: Present normal inspection and neurovascular intact; Absent tenderness Back Exam Back exam: Present normal inspection Neurological Exam Neurological exam: Absent motor sensory deficit or oriented X3 Psychiatric Psychiatric exam: Present normal affect and normal mood A/P Assessment and plan (1) Colostomy in place: Status: Chronic (2) Partial obstruction of small intestine: Status: Acute (3) Atrial fibrillation: Status: Acute Plan Discontinue nasogastric tube Full liquid diet 2 view abdominal x-rays in the morning Time Spent With Patient Time: Total time spent is greater than 50% in coordination of care (as documented) at patient's floor/unit and/or counseling patient:
[2022-12-26] MEDS: 0.9 % SODIUM CHLORIDE 1,000 ML IV SCH ×3 (00:05→14:22)
[2022-12-26] MEDS: METOCLOPRAMIDE 10 MG/2 ML VIAL IV SCH ×4 (00:07→17:34)
[2022-12-26 07:18] LABS: Basophils # (Auto) 0.03 K/mcL (0.00-0.30); Basophils % (Auto) 0.3 % (0.0-2.0); Eosinophils # (Auto) 0.13 K/mcL (0.00-0.70); Eosinophils % (Auto) 1.1 % (0.0-7.0); Hematocrit 39.4 % (40.1-51.0); Hemoglobin 12.3 g/dL (13.7-17.5); Lymphocytes # (Auto) 0.68 K/mcL (1.50-4.80); Lymphocytes % (Auto) 5.7 % (15.5-49.0); Mean Cell Volume 95.6 fL (80.0-100.0); Mean Corpuscular HGB Conc 31.2 g/dL (31.0-36.0); Mean Platelet Volume 10.8 fL (8.8-12.5); Monocytes # (Auto) 0.88 K/mcL (0.10-0.90); Monocytes % (Auto) 7.4 % (1.0-12.0); Neutrophils % (Auto) 84.9 % (38.0-78.0); Platelet Count 220 K/mcL (140-440); RBC 4.12 M/mcL (4.63-6.08); WBC 11.9 K/mcL (4.5-11.0)
[2022-12-26 08:02] LABS: ALT/SGPT 6 U/L (<40); AST/SGOT 11 U/L (<40); Albumin 3.4 gm/dL (3.2-5.2); Albumin/Globulin Ratio 1.1 (1.0-2.3); Alkaline Phosphatase 115 U/L (39-117); Bilirubin,Direct < 0.2 mg/dL (0-0.3); Bilirubin,Total 0.5 mg/dL (0.1-1.0); Blood Urea Nitrogen 15 mg/dL (8-23); Calcium 8.8 mg/dL (8.6-10.4); Carbon Dioxide 26 mmol/L (22-30); Chloride 108 mmol/L (96-108); Globulin 3.1 gm/dL (2.2-3.7); Glomerular Filtration Rate 85; Glucose 79 mg/dL (70-105); Lactate Dehydrogenase 211 U/L (135-225); Phosphorous 1.9 mg/dL (2.5-4.5); Triglycerides 86 mg/dL (<150); Uric Acid 4.8 mg/dL (2.5-8.0)
[2022-12-26] MEDS: TAMSULOSIN 0.4 MG CAPSULE PO SCH (08:38)
[2022-12-26] MEDS: METOPROLOL SUCCINATE 50 MG TAB.XL.24H PO SCH (08:38)
[2022-12-26] MEDS ORDERED: MAGNESIUM CITRATE 300 ML ORAL.SOL PO SCH (09:00)
--- NOTE | 2022-12-26 09:57 | XRay Report ---
HISTORY: Follow-up small bowel obstruction FINDINGS: There is a single loop of dilated bowel in the left upper quadrant which measures 4.7 cm in transverse dimension. The remainder of the small intestine has returned to normal caliber. The stomach is decompressed by a nasogastric tube. There is an ostomy in the left mid abdominal wall. Patient has an enlarging consolidating alveolar infiltrate laterally in the right lower lobe. There is small infiltrate medially in the left lower lobe which has remained stable. Patient has underlying fibrosis in both lungs. IMPRESSION: Near complete resolution of the small bowel obstruction. Worsening pneumonia in the right lower lobe and stable mild left lower lobe pneumonia superimposed upon underlying pulmonary fibrosis Interpreted and Authenticated by: Ricky Wang 12/26/22
--- NOTE | 2022-12-26 13:21 | General Surgery Progress Note ---
SUBJECTIVE Subjective Patient information: Note initiated : 12/26/22 at 1:16 pm Service Date, if different from initiated Date: [] Patient: Fei Rodrigues 87 y/o M admitted on 12/24/22 for Stomach Pain. Chief Complaint: [] Principal diagnosis: Partial small bowel obstruction Interval history: Patient is continuing to improve. He has had multiple large bowel movements throughout the night. His last bowel movement was 700 cc. He denies abdominal pain or nausea. He is tolerated liquids without any difficulty. White blood count 11.9, hemoglobin 12.3, hematocrit 39.4. BUN/creatinine and potassium are normal. Phosphorus is 1.9. Constitutional Vitals: Vital Signs Temp Pulse Resp BP Pulse Ox O2 Del Method O2 Flow Rate 98.3 F 78 18 132/106 96 Nasal Cannula 3 12/26/22 11:23 12/26/22 11:23 12/26/22 11:23 12/26/22 11:23 12/26/22 11:23 12/26/22 11:23 12/26/22 11:23 Period Temp Pulse Resp BP Sys/[place]ell Pulse Ox O2 Del Method O2 Flow Rate Last 24 Hr 97.2 F-98.6 F 62-98 16-20 101-136/66-106 93-96 Nasal Cannula- Nasal Cannula 1-3 Intake and Output 12/26/22 12/26/22 12/26/22 03:59 11:59 19:59 Intake Total 1240 1000 480 Output Total 1125 2125 300 Balance 115 -1125 180 Weight 128 lb 2 oz Intake & Output: Intake & Output 12/26/22 12/26/22 12/26/22 03:59 11:59 19:59 Intake Total 1240 1000 480 Output Total 1125 2125 300 Balance 115 -1125 180 Weight 128 lb 2 oz Intake: IV 1000 1000 Sodium Chloride 0.9% 1,000 ml @ 1000 1000 150 mls/hr IV .Q6H40M [facility] Rx#: [id number] Oral 240 240 GI Tube Flush 240 Output: Void Amount 275 250 Stool 850 1875 300 Other: Meal Breakfast Lunch Percent of Meal Consumed 75% 100% Feeding Ability Assist with Tray Set Up Independent Urine Appearance Clear Clear Urine Color Yellow Dark Natalya Urine Odor Normal Normal Stool Size Moderate Moderate Moderate Stool Color Brown Green Yellow Green Green Stool Consistency Liquid Liquid Liquid ENT ENT exam: Present mucous membranes moist and normal oropharynx Additional comments: Edentulous Neck Neck exam: Present normal inspection Respiratory Respiratory exam: Present normal respiratory exam and CTAB Cardiovascular Cardiovascular exam: Present normal rate and rhythm, RRR, +S1 and +S2; Absent JVD GI/Abdominal GI/Abdominal exam: Present normal bowel sounds and soft; Absent distended or tenderness Extremities Exam Extremities exam: Present normal inspection and neurovascular intact Neurological Exam Neurological exam: Present oriented X3 and reflexes normal; Absent motor sensory deficit Psychiatric Psychiatric exam: Present normal affect and normal mood; Absent anxious A/P Assessment and plan (1) Partial obstruction of small intestine: Status: Acute (2) Colostomy in place: Status: Chronic (3) Atrial fibrillation: Status: Acute (4) PAF (paroxysmal atrial fibrillation): Status: Chronic Plan Sodium phosphate rider Discontinue nasogastric tube Saline lock IV Check sedimentation rate 2 view abdominal x-ray Possible discharge tomorrow Time Spent With Patient Time: Total time spent is greater than 50% in coordination of care (as documented) at patient's floor/unit and/or counseling patient:
[2022-12-26] MEDS: POTASSIUM PHOSPHATE 40 MEQ in DEXTROSE 5% IN WATER 500 ML IV SCH ×2 (15:24→21:11)
[2022-12-26] MEDS ORDERED: SODIUM PHOSPHATE 30 MMOL in DEXTROSE 5% IN WATER 500 ML IV SCH (21:00)
[2022-12-27] MEDS: METOCLOPRAMIDE 10 MG/2 ML VIAL IV SCH ×3 (02:52→12:07)
[2022-12-27] MEDS: 0.9 % SODIUM CHLORIDE 1,000 ML IV SCH ×2 (05:10→08:38)
[2022-12-27 06:52] LABS: Basophils # (Auto) 0.04 K/mcL (0.00-0.30); Basophils % (Auto) 0.5 % (0.0-2.0); Eosinophils # (Auto) 0.27 K/mcL (0.00-0.70); Eosinophils % (Auto) 3.4 % (0.0-7.0); Lymphocytes # (Auto) 0.92 K/mcL (1.50-4.80); Lymphocytes % (Auto) 11.5 % (15.5-49.0); Mean Cell Volume 93.8 fL (80.0-100.0); Mean Corpuscular HGB Conc 31.6 g/dL (31.0-36.0); Mean Platelet Volume 10.3 fL (8.8-12.5); Monocytes # (Auto) 0.67 K/mcL (0.10-0.90); Monocytes % (Auto) 8.3 % (1.0-12.0); Neutrophils % (Auto) 76.1 % (38.0-78.0); Platelet Count 185 K/mcL (140-440); RBC 4.05 M/mcL (4.63-6.08); Red Cell Distribution Width 14.4 % (11.5-14.5)
--- NOTE | 2022-12-27 07:09 | EKG ---
[facility] Test Date: 2022-12-23 Pat Name: Fei Rodrigues Department: ED Room: Gender: Male Mid Level Practitioner: BRADY : 1935 Requested By: William Kwon Order Number: [id number] Reading MD: Ron Hurtado Measurements Intervals [place] Rate: 116 P: AR: QRS: 70 QRSD: 88 T: 262 QT: 342 QTc: 476 Interpretive Statements Atrial fibrillation with RVR Nonspecific T abnormalities, lateral leads Borderline prolonged QT interval Electronically Signed On 12-27-2022 7:08:43 PST by Ron Hurtado /[email or web address]/[id number]
--- NOTE | 2022-12-27 07:09 | EKG ---
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
[2022-12-27 08:01] LABS: ALT/SGPT 7 U/L (<40); AST/SGOT 10 U/L (<40); Albumin 3.2 gm/dL (3.2-5.2); Albumin/Globulin Ratio 1.1 (1.0-2.3); Alkaline Phosphatase 92 U/L (39-117); Bilirubin,Direct < 0.2 mg/dL (0-0.3); Bilirubin,Total 0.5 mg/dL (0.1-1.0); Blood Urea Nitrogen 8 mg/dL (8-23); Calcium 8.2 mg/dL (8.6-10.4); Carbon Dioxide 22 mmol/L (22-30); Chloride 105 mmol/L (96-108); Globulin 2.8 gm/dL (2.2-3.7); Glomerular Filtration Rate 90; Glucose 78 mg/dL (70-105); Lactate Dehydrogenase 191 U/L (135-225); Triglycerides 77 mg/dL (<150); Uric Acid 3.9 mg/dL (2.5-8.0)
[2022-12-27] MEDS: TAMSULOSIN 0.4 MG CAPSULE PO SCH (08:37)
[2022-12-27] MEDS: METOPROLOL SUCCINATE 50 MG TAB.XL.24H PO SCH (08:38)
--- NOTE | 2022-12-27 12:44 | XRay Report ---
CLINICAL INFORMATION: FOLLOW -UP OF SMALL BOWEL OBSTRUCTION COMPARISON: 12/26/2022 FINDINGS: The stool gas pattern is unremarkable. There is no free air, soft tissue mass, organomegaly or pathologic calcification. Aortobiiliac endovascular graft is grossly normal. Moderate airspace disease in both lung bases has progressed. IMPRESSION: Normal abdomen. Moderate bibasilar airspace disease progressing suggest chest x-ray Interpreted and Authenticated by: Sai Casper 12/27/22
--- NOTE | 2022-12-27 14:47 | Discharge Summary ---
Discharge Provider Provider IMPORTANT FOLLOW-UP INFORMATION FOR PCP: Patient information: Note initiated : 12/27/22 at 2:37 pm Service Date, if different from initiated Date: [] Patient: Fei Rodrigues 87 y/o M admitted on 12/24/22 for Stomach Pain. Chief Complaint: [] Date of admission: 12/24/22 12:25 Discharge date: 12/27/22 Primary care physician: Sai Elizabeth DO Admitting clinician: Wesley Cohen Attending physician on admission: Wesley Cohen Consults: 12/23/22 Consult to Physician [CONS] Stat Comment: Consulting Provider: Ernesto Tony Reason For Exam: Physician to Consult Consult to Physician [CONS] Stat Comment: Consulting Provider: Chris Willis Reason For Exam: Physician to Consult 12/24/22 Consult to Physician [CONS] Stat Comment: Consulting Provider: Wesley Cohen Reason For Exam: Physician to Consult Attending physician on discharge: Wesley Cohen Discharging clinician: Wesley Cohen COURSE Hospital Course Hospital course: 87-year-old male admitted with partial small bowel obstruction. The patient has a history of having perforated colon during colostomy in July 2022. He had resection with end colostomy. He has presented 3 times with partial obstruction. He states that he had regular bowel movements and passage of flatus about 24 hours prior to coming to the emergency room. He developed distended abdomen and abdominal pain with nausea which prompted him to come to the emergency room. Abdominal x-rays showed dilated loops of small bowel with a questionable transition point. He had high output via his nasogastric tube. He was monitored and started on metoclopramide. During the first 24 hours he put out over 1800 cc of gastric juice. He started having passage of flatus and liquid stool. Over the next 24 hours he decompressed and had multiple bowel movements. He was given MiraLAX and milk of magnesia and had large volume output. His diet has been advanced and he is now tolerating soft diet without difficulty. Abdominal x-rays shows decompressed small bowel with some gas in his colon. Patient is stable for discharge home. Discharge diagnosis: Partial small bowel obstruction Secondary discharge diagnosis: Colostomy status Colostomy prolapse Dehydration Chronic anemia History of atrial fibrillation Chronic obstructive lung disease Reason for admission: Small bowel obstruction Procedures: None Pertinent studies/significant findings: None Time Spent with Patient Time attestation: Total time spent providing and/or coordinating discharge services: Time spent: Less than 30 minutes Physical Examination Vital Signs Vital signs: Temp Pulse Resp BP Pulse Ox O2 Del Method O2 Flow Rate 97.7 F 86 20 117/90 95 Nasal Cannula 2 12/27/22 12:00 12/27/22 12:00 12/27/22 12:00 12/27/22 12:00 12/27/22 12:00 12/27/22 12:00 12/27/22 12:00 General physical appearance General physical exam: no distress, no pain, cachectic and chronically ill Eyes Eye exam: PERRL and normal ocular movement ENT ENT exam: normal mucosa, decreased hearing and other (Edentulous) Head Head exam IM: Present atraumatic, normal inspection and normocephalic Neck Neck exam: no masses, no bruits, trachea midline, no lymphadenopathy and no venous distension Cardiovascular Cardiovascular exam IM: Present normal rate and rhythm, +S1 and +S2; Absent JVD Respiratory Respiratory exam: normal expansion, normal respiratory effort and clear to auscultation Abdomen Abdomen: Present soft, non tender and bowel sounds (Good active bowel sounds); Absent surgical scars (Prolapsing stoma left lower quadrant without obstruction) or distended Integumentary Integumentary: Present no rash, no growths and no abnormal pigmentation Neurologic Neurologic: Present normal coordination and normal sensation Musculoskeletal Musculoskeletal: Present normal gait and normal posture Psychiatric Psychiatric: Present oriented to time, oriented to person, oriented to place, speech is normal and memory intact Discharge Plan Patient/Caregiver Discharge Instructions Activity: increase activity as tolerated Diet: Regular Diet Prescriptions: New polyethylene glycol 3350 [Miralax] 17 gram powder in packet 17 g PO BID Qty: 100 0RF Continued tamsulosin 0.4 mg capsule 0.4 mg PO QDAY Qty: 90 3RF acetaminophen [Tylenol] 325 mg tablet 650 mg PO QDAY PRN (Reason: Pain) atorvastatin 20 mg tablet 20 mg PO QDAY apixaban 5 mg tablet 5 mg PO BID metoprolol succinate 50 mg tablet extended release 24 hr 50 mg PO QDAY magnesium oxide 400 mg magnesium capsule 400 mg PO QDAY albuterol sulfate [Ventolin HFA] 90 mcg/actuation HFA aerosol inhaler 2 puff inhalation BID Patient Comments: [NO ORIGINAL SIG] (DME) Oxygen See Rx Instructions Rx Instructions: Per patient's son, patient has been using oxygen at all times.-dt Prescription drug monitoring program results: PDMP not reviewed Follow Up Plan Follow up with: Sai Elizabeth DO [Primary Care Provider] - Patient Disposition: Home, Self-Care Plan of Treatment: Use MiraLAX twice daily to keep bowels loose Take care to chew all food well before swallowing Prognosis: Good Rehab Potential: Good I certify that the patient requires SNF services: No Overall status at discharge: patient is progressing back to baseline Discharge Orders: Discharge Order (Routine); Ordered 12/27/22 Ordered By: Wesley Cohen Pending Pending Pending: Resuscitation Status Do Not Resuscitate Diet Full Liquid Diet Start TueDec 27 1129 Sodium Chloride (Sodium Chloride 0.9%) 1,000 mls @ 150 mls/hr IV .Q6H40M [facility] Admin: 12/27/22 08:38 Dose: Not Given Documented By: Admin: 12/27/22 05:10 Dose: 150 mls/hr Documented By: Infusion: 12/27/22 05:10 Dose: 150 mls/hr Documented By: Admin: 12/27/22 05:10 Dose: 150 mls/hr Documented By: Infusion: 12/26/22 21:03 Dose: 150 mls/hr Documented By: Admin: 12/26/22 14:22 Dose: 150 mls/hr Documented By: Infusion: 12/26/22 13:29 Dose: 150 mls/hr Documented By: Admin: 12/26/22 06:48 Dose: 150 mls/hr Documented By: Infusion: 12/26/22 06:46 Dose: 150 mls/hr Documented By: Admin: 12/26/22 00:05 Dose: 150 mls/hr Documented By: Infusion: 12/26/22 00:05 Dose: 150 mls/hr Documented By: Admin: 12/25/22 17:24 Dose: 150 mls/hr Documented By: Infusion: 12/25/22 17:13 Dose: 150 mls/hr Documented By: Admin: 12/25/22 10:32 Dose: 150 mls/hr Documented By: Infusion: 12/25/22 09:46 Dose: 150 mls/hr Documented By: Admin: 12/25/22 03:05 Dose: 150 mls/hr Documented By: Infusion: 12/25/22 03:05 Dose: 150 mls/hr Documented By: Admin: 12/24/22 20:27 Dose: 150 mls/hr Documented By: Infusion: 12/24/22 20:27 Dose: 150 mls/hr Documented By: Admin: 12/24/22 13:46 Dose: 150 mls/hr Documented By: LAILA Metoclopramide HCl (Metoclopramide 10 Mg/2 Ml Vial) 10 mg IV Q6 [facility] Admin: 12/27/22 12:07 Dose: 10 mg Documented By: [email or web address] Admin: 12/27/22 05:10 Dose: 10 mg Documented By: Admin: 12/27/22 02:52 Dose: Not Given Documented By: Admin: 12/26/22 17:34 Dose: 10 mg Documented By: Admin: 12/26/22 12:19 Dose: 10 mg Documented By: Admin: 12/26/22 05:44 Dose: 10 mg Documented By: Admin: 12/26/22 00:07 Dose: 10 mg Documented By: Admin: 12/25/22 17:24 Dose: 10 mg Documented By: Admin: 12/25/22 12:35 Dose: 10 mg Documented By: Admin: 12/25/22 06:04 Dose: 10 mg Documented By: Admin: 12/25/22 00:50 Dose: 10 mg Documented By: Admin: 12/24/22 17:18 Dose: 10 mg Documented By: LAILA Metoprolol Succinate (Metoprolol Succinate 50 Mg Tab.Xl.24h) 50 mg PO QDAY [facility] Admin: 12/27/22 08:38 Dose: 50 mg Documented By: Admin: 12/26/22 08:38 Dose: 50 mg Documented By: LEAH Morphine Sulfate (Morphine 4 Mg/Ml Vial) 4 mg IV Q1HP PRN; Protocol PRN Reason: Per Pain Protocol Last Admin: 12/23/22 16:06 Dose: 4 mg Documented By: ARA Tamsulosin HCl (Tamsulosin 0.4 Mg Capsule) 0.4 mg PO QDAY ORLIN Last Admin: 12/27/22 08:37 Dose: 0.4 mg Documented By: Admin: 12/26/22 08:38 Dose: 0.4 mg Documented By: LEAH Shift Summary 12/27/22 03:54 Shift Summary by Bronwyn Deras [facility] Fei Rodrigues Male : 1935 MedRec# [id number] 12/27/22 02:50 - Shift Summary by Bronwyn Deras RN Acct Num: [id number] : 1935 Patient Age: 87 [facility] Fei Rodrigues Male : 1935 MedRec# [id number] 12/27/22 02:54 - Shift Summary by Bronwyn Deras RN Acct Num: [id number] : 1935 Patient Age: 87 Fei Rodrigues Male : 1935 MedRec# [id number] Acct Num: [id number] : 1935 Patient Age: 87 Primary Diagnosis: SBO Registration Status: MS OBS Date of Surgery (if applicable): No surgery at this time. Pertinent Medical Dx/Issue(s): Colostomy, pacemaker, a-fib, Hypoxia, Dyspnea, BPH, CAD, PVD, COPD, Hyperlipidemia, lung lobectomy Med management (antibiotics, diuretics, BP) scheduled reglan Skin/Wound Care: Blanchable redness to sacrum. Dry skin throughout. Ostomy to LLQ. Vital Signs with Trends: VSS@2LNC. O2, liter flow/saturations: Chronic O2 at 2L. Pain management (acute vs. chronic): Pt reports no pain this shift. Morphine available. Lab/Rad (abnormals, trends): 10/22/23 Labs - WBC: 4.4, CO2: 34, BUN: 27 Neuro/Mental Status: A&Ox3-4 Urinary Elimination Device: Voids per urinal. Urinary output greater than 30mL/hr? Yes Date of last BM: significant output in the colostomy Lines/Tubes: IV to RFA running NS @ 150, LFA SL. Activity: Patient has not been out of bed since being admitted. Pt reports SBA with [facility] Discharge Plan (needs, disposition, etc): Pt lives alone and receives care from [facility]. END OF NOTE Initialized on 12/27/22 02:50 - END OF NOTE Initialized on 12/27/22 03:54 - END OF NOTE
== END 2022-12-27 17:15 | disposition home or self-care (01) ==
LOC: ED 14:40 → MEDSUR 14:40
PROVIDERS: ADMIT Family Medicine Adult Medicine; ATTEND Family Medicine Adult Medicine

== ENCOUNTER 2023-02-19 00:59 | Inpatient (IN) ==
[2023-02-19] MEDS ORDERED: IOPAMIDOL 100 ML BOTTLE IV ONE (01:00)
[2023-02-19] MEDS ORDERED: ONDANSETRON 4 MG/2 ML VIAL IV ONE (01:23)
[2023-02-19] MEDS ORDERED: 0.9 % SODIUM CHLORIDE 1,000 ML IV ONE (01:23)
[2023-02-19] MEDS ORDERED: fentaNYL 100 MCG/2 ML VIAL IV ONE (01:23)
[2023-02-19 01:28] LABS: POC Calcium, Ionized 1.26 (1.16-1.32); POC Creatinine 1.1 (0.6-1.2); POC Potassium 3.5 (3.3-5.1)
--- NOTE | 2023-02-19 01:29 | Emergency Department Note ---
Abdominal Pain HPI General Chief Complaint: Abdominal Pain Stated Complaint: abdominal pain/nausea Time Seen by Provider: 02/19/23 01:23 Source: patient and EMS Mode of arrival: EMS Limitations: no limitations History of Present Illness HPI Narrative: Narrative: Patient presents to the ED via EMS for concern for possible small bowel obstruction. Patient that he has abdominal pain that he rates 5 out of 10. He also reports some vomiting. States he has had several small bowel obstructions in the past in the feels like the same. Patient that he has a ostomy that was done by Dr. Mcfarland and Dr. Cohen. Patient denies fever, chills, hematemesis, shortness of breath, cardiac chest pain, heart palpitations. Family states that his ostomy has been prolapse for quite some time now and both Dr. Mcfarland and Dr. Cohen are aware of it. Patient denies any other leaving aggravating factors. Related Data Home Medications Medication Instructions Recorded Confirmed acetaminophen 325 mg tablet 650 mg PO QDAY PRN Pain 06/07/16 01/17/23 (Tylenol) atorvastatin 20 mg tablet 20 mg PO QDAY 04/03/19 02/19/23 apixaban 5 mg tablet 5 mg PO BID 09/15/20 02/19/23 metoprolol succinate 50 mg 50 mg PO QDAY 03/18/22 02/19/23 tablet,extended release 24 hr magnesium oxide 400 mg PO QDAY 06/09/22 02/19/23 albuterol sulfate 90 mcg/actuation 2 puff inhalation BID 10/21/22 01/17/23 aerosol inhaler (Ventolin HFA) Oxygen 11/16/22 01/17/23 Previous Rx's Medication Instructions Recorded polyethylene glycol 3350 17 gram 17 g PO BID Constipation and 12/27/22 oral powder packet (Miralax) obstruction #100 ea metoclopramide HCl 5 mg tablet 5 mg PO TID Chronic ileus; reflux 01/11/23 #90 tabs tamsulosin 0.4 mg capsule 0.4 mg PO QDAY #90 caps 02/03/23 Allergies Allergy/AdvReac Type Severity Reaction Status Date / Time codeine AdvReac Mild Nausea Verified 01/17/23 09:08 Review of Systems ROS ROS Narrative: Narrative: All systems ED: reviewed and negative except as stated. PFSH Narrative Patient History Narrative: Narrative: Medical/Surgical/Family History All Active Problems Small bowel obstruction (Acute) Gastroesophageal reflux disease (Acute) Colostomy in place (Chronic) History of intestinal obstruction (Acute) Bowel obstruction (Acute) Small bowel obstruction (Acute) Hypoxia (Acute) Exertional dyspnea (Acute) Dehydration (Acute) Pneumonia (Acute) C. difficile diarrhea (Acute) Complete obstruction of small intestine (Acute) Anemia, normocytic normochromic (Acute) Atrial fibrillation (Acute) Nausea (Acute) Tingling sensation (Acute) Hemarthrosis of knee, right (Acute) Knee injury (Acute) Unstable right knee (Acute) Pain and swelling of right knee (Acute) Medicare annual wellness visit, initial (Acute) PAF (paroxysmal atrial fibrillation) (Chronic) Sinus node dysfunction (Chronic) Nonsustained ventricular tachycardia (Chronic) Lower urinary obstructive symptom (Chronic) BPH w urinary obs/LUTS (Chronic) Diarrhea (Chronic) Closed rib fracture (Acute) CAD (coronary artery disease) (Chronic) Ventricular tachycardia (Acute) Syncope, near (Acute) Hearing loss (Chronic) Cataracts, bilateral (Chronic) Vertigo (Chronic) Malignant neoplasm of bronchus and lung, unspecified site (Chronic) Positional vertigo (Acute) Presence of cardiac pacemaker (Chronic) Bilateral hydrocele (Chronic) Malignant neoplasm of lung (Chronic) Bruit of left carotid artery (Chronic) Weight loss (Chronic) Vasovagal syncope (Chronic 12/18/05) Acute sinusitis (Chronic 02/05/14) Schatzki's ring (Chronic) Lymphadenopathy (Chronic) Peripheral vascular disease (Chronic) Osteoporosis (Chronic) Osteoarthritis (Chronic) Onychomycosis (Chronic) Obstructive uropathy (Chronic) Lichen planus (Chronic) Right inguinal pain (Chronic) Accelerated idioventricular rhythm (Chronic) Nocturnal hypoxemia (Chronic) Hypotension (Chronic) Hyperlipidemia (Chronic) Hydrocele (Chronic 11/29/13) Hammer toe (Chronic) Family history of stress (Chronic) Esophagitis (Chronic) Enlarged prostate (Chronic) Dyspnea (Chronic) Dysphagia (Chronic 11/29/13) Dupuytren's contracture (Chronic) Depression (Chronic) Colon adenoma (Chronic) COPD (chronic obstructive pulmonary disease) (Chronic) Chronic bronchitis (Chronic) Bradycardia (Chronic 12/18/05) Low back pain (Chronic 12/24/06) Actinic keratosis (Chronic) Anemia (Chronic) Abdominal aortic aneurysm (AAA) (Chronic) Medical History Abdominal aortic aneurysm (AAA) Aortic endograft Accelerated idioventricular rhythm Actinic keratosis Acute sinusitis (02/05/14) Anemia BPH w urinary obs/LUTS Improved greatly with Flomax 0.4 mg daily. Bradycardia (12/18/05) Sinus of unknown origina Chronic bronchitis Closed fracture of wrist 10/10 right Closed hip fracture left Closed skull fracture (12/18/05) fell and hit head on the toilet, passed out. Colon adenoma 2004 COPD (chronic obstructive pulmonary disease) Depression Diarrhea Dupuytren's contracture Dysphagia (11/29/13) recurrent Dyspnea Enlarged prostate Esophagitis H/O Family history of stress Gastritis Hammer toe Right second and third toes History of blood transfusion 2 units History of ECG (09/30/15) History of echocardiogram 06/03/15 - [facility]. 03/29/19 - [facility]. History of pacemaker (06/20/10) BIOTRONIK MODEL 209629 History of tobacco abuse Stopped Hydrocele (11/29/13) Bilateral large, left greater than right Hyperlipidemia Now on atorvastatin at 20 mg each day Hypotension Beta-aniyah added Lichen planus Low back pain (12/24/06) Lower urinary obstructive symptom Denies history of BPH or urinary obstructive symptoms. States symptoms just started about 6 months ago. Prostate only 2+ today and nontender. Smooth with no nodules. AUA score is 18 today and he has mixed quality of life due to his symptoms. We will check PSA. We will get urine sample with next set of pelvic pain. Lymphadenopathy Perililar. H/O. Malignant neoplasm of bronchus and lung, unspecified site 2011 non-small cell carcinoma Medicare annual wellness visit, initial Nocturnal hypoxemia Overnight pulse ox from August 2020 shows O2 sats <88% for 56 minutes total overnight. Nonsustained ventricular tachycardia Obstructive uropathy Onychomycosis Osteoarthritis Osteoporosis Peripheral vascular disease Asymptomatic, but abnormal MAGALY -0.43 on the right Arterial duplex of bilateral lower extremities ordered Continue statin. Not on aspirin due to being anticoagulated. Right inguinal pain Schatzki's ring Sinus node dysfunction Pacemaker Squamous cell carcinoma lung Vasovagal syncope (12/18/05) and collapse Weight loss Surgical History History of biopsy (09/15/07) right flank lesion History of bronchoscopy (06/01/12) History of colonoscopy (09/06/13) Two polypoid fragments of colonic mucosa with minimal surface hyperplastic ch jimbo History of esophagogastroduodenoscopy (EGD) (09/07/11) 09/07/11 MICRO: CHRONIC GASTRITIS WITH INTESTINAL METAPLASIA AND FOCAL ACUTE INFLAMMATION. CONSULT: SCHATZKI'S RING, SMALL HIATAL HERNIA, GASTRITIS. 06/30/16 Schatzki's ring dilated and Egan's esophagus. History of exploratory laparotomy 08/03/2022-1. Exploratory laparotomy with resection of sigmoid perforation. 2. End colostomy. 3. Washout and drainage History of lobectomy of lung History of lobectomy of lung 06/11 RIGHT LOWER LOBE followed by chemotherapy History of lung biopsy (05/02/12) History of surgery (06/01/12) Mediastinoscopy History of thoracotomy (06/01/12) RIGHT LOWER LOBE WAS RESECTED THRU A LIMITED RIGHT THORACOTOMY History of tonsillectomy S/P AAA repair (~2012) Status post-operative repair of closed fracture of left hip 2010 hemiarthroplasty Family History Mother , age 76 Diabetes mellitus Heart disease Father , age 61 Heart disease Peptic ulcer Brother CAD (coronary artery disease) Social History Smoking Status: Former smoker Alcohol Intake Frequency: 0-2 drinks per day Substance Use: does not use Exam Narrative Narrative: Narrative: General Limitations: no limitations General appearance: Absent in distress ENT ENT: Present normal oropharynx and mucous membranes dry Chest Chest: Present normal inspection; Absent tenderness Respiratory Respiratory: Present normal lung sounds bilaterally; Absent respiratory distress Cardiovascular Cardiovascular: Present regular rate and normal rhythm Adbominal Abdominal: Present soft, tenderness and other (Left lower abdomen ostomy bag that contains stool) Expanded Abdominal Abdominal Tenderness: Present diffuse Extremities Extremities: Present normal capillary refill Back Back: Absent CVA tenderness (R) or CVA tenderness (L) Neurological Neurological: Present alert and oriented X3 Psychiatric Psychiatric: Present normal affect and normal mood Skin Skin: Present warm (WNL) and intact Course Course Course Narrative: Patient with a evaluated for abdominal pain. Labs were obtained show the patient had elevated white cell count. His lactic acid was also elevated. He is also tachycardic. Blood cultures were obtained. Patient started on IV vancomycin and Cipro for suspected infection. CT abdomen pelvis obtained with image reviewed myself which shows a small bowel obstruction. Patient was bolused IV fluids 30 mill per KG per sepsis protocol. Patient was also given IV fentanyl initially for discomfort. Repeat lactic acid had improved. Patient is comfortable at this time. NG tube was placed. X-rays were obtained and showed NG tube in good placement. Case was discussed with on-call general surgeon, Dr. Willis, who was agreed to admit the patient. We will keep patient n.p.o. and keep him comfortable without IV analgesics. Plan of care was discussed with patient family expressed verbal understanding and agreement. Patient has a history of A-fib and went to A-fib with [facility]VR while patient was here in the ED prior to going to the floor so he was given IV diltiazem and his heart rate improved to less than 120. Consultations Consultation #1: Case discussed with on-call surgeon, Dr. Willis, who who has agreed to admit the patient. Time: 03:31 Vital Signs Vital signs: Vital Signs Temperature 95.6 F L 02/19/23 01:00 Pulse Rate 95 H 02/19/23 01:00 Respiratory Rate 16 02/19/23 01:00 Blood Pressure 107/71 02/19/23 01:00 Pulse Oximetry (%) 94 02/19/23 01:00 Oxygen Delivery Method Nasal Cannula 02/19/23 01:00 Oxygen Flow Rate (L/min) 2 02/19/23 01:00 Temperature 95.6 F L 02/19/23 01:00 Pulse Rate 81 02/19/23 03:46 Respiratory Rate 22 02/19/23 04:00 Blood Pressure 130/93 02/19/23 04:00 Pulse Oximetry (%) 90 02/19/23 04:00 Oxygen Delivery Method Nasal Cannula 02/19/23 04:00 Oxygen Flow Rate (L/min) 5 02/19/23 04:00 [facility] MDM Narrative Medical decision making narrative: Narrative: Differential Diagnosis Differential Diagnosis: Small bowel obstruction, pancreatitis Medical Records Medical records reviewed: Yes I reviewed the patient's medical records. Lab Data Lab results reviewed: Yes I reviewed the patient's lab results. 02/19/23 01:31 Labs: Lab Results 02/19/23 02/19/2323 Range/Units 01:22 01:31 01:31 WBC 14.4 H (4.5-11.0) K/mcL RBC 4.78 (4.63-6.08) M/mcL Hgb 13.8 (13.7-17.5) g/dL Hct 43.7 (40.1-51.0) % POC Hct 46.0 (41-55) MCV 91.4 (80.0-100.0) fL MCH 28.9 (26.0-34.0) pg MCHC 31.6 (31.0-36.0) g/dL RDW 15.9 H (11.5-14.5) % Plt Count 255 (140-440) K/mcL MPV 10.0 (8.8-12.5) fL Immature Gran % (Auto) 0.4 (0.0-0.5) % Neut % (Auto) 88.7 H (38.0-78.0) % Lymph % (Auto) 4.2 L (15.5-49.0) % Shelby % (Auto) 5.8 (1.0-12.0) % Eos % (Auto) 0.7 (0.0-7.0) % Baso % (Auto) 0.2 (0.0-2.0) % Lymph # (Auto) 0.61 L (1.50-4.80) K/mcL Shelby # (Auto) 0.83 (0.10-0.90) K/mcL Eos # (Auto) 0.10 (0.00-0.70) K/mcL Baso # (Auto) 0.03 (0.00-0.30) K/mcL Immature Gran # 0.06 H (0.00-0.05) K/mcl Absolute Neutrophils 12.80 H (1.80-8.00) K/mcL POC VBG pH (7.32-7.42) POC VBG pCO2 at Temp (41-51) POC VBG pO2 (25-40) POC VBG HCO3 (24-28) POC VBG Total CO2 (25-29) POC Venous O2 Sat (40-70) POC VBG Base Excess (-2-2) VBG Lactic Acid (0.5-2) POC Sodium 141 (133-145) POC Potassium 3.5 (3.3-5.1) POC Chloride 106 (96-108) POC Total CO2 26.0 (22-30) POC BUN 31 H (6-20) POC Creatinine 1.1 (0.6-1.2) POC Glucose 137 H (70-105) POC WB Ioniz Calcium 1.26 (1.16-1.32) Total Bilirubin 0.5 (0.1-1.0) mg/dL Direct Bilirubin < 0.2 (0-0.3) mg/dL AST 22 (<40) U/L ALT 15 (<40) U/L Alkaline Phosphatase 143 H (39-117) U/L Total Protein 8.0 (5.9-8.4) gm/dL Albumin 4.2 (3.2-5.2) gm/dL Globulin 3.8 H (2.2-3.7) gm/dL Amylase 138 H (28-100) U/L Lipase 30 (7-60) U/L 02/19/23 02/19/23 Range/Units 01:32 04:17 WBC (4.5-11.0) K/mcL RBC (4.63-6.08) M/mcL Hgb (13.7-17.5) g/dL Hct (40.1-51.0) % POC Hct (41-55) MCV (80.0-100.0) fL MCH (26.0-34.0) pg MCHC (31.0-36.0) g/dL RDW (11.5-14.5) % Plt Count (140-440) K/mcL MPV (8.8-12.5) fL Immature Gran % (Auto) (0.0-0.5) % Neut % (Auto) (38.0-78.0) % Lymph % (Auto) (15.5-49.0) % Shelby % (Auto) (1.0-12.0) % Eos % (Auto) (0.0-7.0) % Baso % (Auto) (0.0-2.0) % Lymph # (Auto) (1.50-4.80) K/mcL Shelby # (Auto) (0.10-0.90) K/mcL Eos # (Auto) (0.00-0.70) K/mcL Baso # (Auto) (0.00-0.30) K/mcL Immature Gran # (0.00-0.05) K/mcl Absolute Neutrophils (1.80-8.00) K/mcL POC VBG pH 7.27 L 7.32 (7.32-7.42) POC VBG pCO2 at Temp 52.6 H 49.1 (41-51) POC VBG pO2 29 24 L (25-40) POC VBG HCO3 24.4 25.1 (24-28) POC VBG Total CO2 26.0 27.0 (25-29) POC Venous O2 Sat 45.0 36.0 L (40-70) POC VBG Base Excess -2.0 -1.0 (-2-2) VBG Lactic Acid 3.3 H 1.8 (0.5-2) POC Sodium (133-145) POC Potassium (3.3-5.1) POC Chloride (96-108) POC Total CO2 (22-30) POC BUN (6-20) POC Creatinine (0.6-1.2) POC Glucose (70-105) POC WB Ioniz Calcium (1.16-1.32) Total Bilirubin (0.1-1.0) mg/dL Direct Bilirubin (0-0.3) mg/dL AST (<40) U/L ALT (<40) U/L Alkaline Phosphatase (39-117) U/L Total Protein (5.9-8.4) gm/dL Albumin (3.2-5.2) gm/dL Globulin (2.2-3.7) gm/dL Amylase (28-100) U/L Lipase (7-60) U/L Radiology Data Radiology results reviewed: Yes I reviewed the patient's radiology results. Radiology results narrative: CT abdomen pelvis obtained with image reviewed myself which revealed recurrent small bowel obstruction Abdominal x-ray obtained with image reviewed myself which shows NG tube in good place Core Measures AMI Core Measures Followed: Yes Discharge Plan Patient/Caregiver Discharge Instructions Pt seen by ASSISTANT TENNIS COACH/PA only: No Clinical Impression: Small bowel obstruction Patient Disposition: Xfer As Outpt/Obs ([facility]) Condition: Fair Follow up with: Sai Elizabeth DO [Primary Care Provider] - Prescriptions: No Action tamsulosin 0.4 mg capsule 0.4 mg PO QDAY Qty: 90 3RF acetaminophen [Tylenol] 325 mg tablet 650 mg PO QDAY PRN (Reason: Pain) atorvastatin 20 mg tablet 20 mg PO QDAY apixaban 5 mg tablet 5 mg PO BID metoprolol succinate 50 mg tablet extended release 24 hr 50 mg PO QDAY magnesium oxide 400 mg magnesium capsule 400 mg PO QDAY albuterol sulfate [Ventolin HFA] 90 mcg/actuation HFA aerosol inhaler 2 puff inhalation BID Patient Comments: [NO ORIGINAL SIG] (DME) Oxygen See Rx Instructions Rx Instructions: Per patient's son, patient has been using oxygen at all times.-dt metoclopramide HCl 5 mg tablet 5 mg PO TID Qty: 90 2RF Rx Instructions: administer 30 minutes before meals polyethylene glycol 3350 [Miralax] 17 gram powder in packet 17 g PO BID Qty: 100 0RF
[2023-02-19] MEDS ORDERED: 0.9 % SODIUM CHLORIDE 2,190 ML IV ONE (01:51)
[2023-02-19 01:57] LABS: Basophils # (Auto) 0.03 K/mcL (0.00-0.30); Basophils % (Auto) 0.2 % (0.0-2.0); Eosinophils % (Auto) 0.7 % (0.0-7.0); Hematocrit 43.7 % (40.1-51.0); Hemoglobin 13.8 g/dL (13.7-17.5); Lymphocytes # (Auto) 0.61 K/mcL (1.50-4.80); Lymphocytes % (Auto) 4.2 % (15.5-49.0); Mean Cell Volume 91.4 fL (80.0-100.0); Mean Corpuscular HGB Conc 31.6 g/dL (31.0-36.0); Monocytes # (Auto) 0.83 K/mcL (0.10-0.90); Monocytes % (Auto) 5.8 % (1.0-12.0); Neutrophils % (Auto) 88.7 % (38.0-78.0); Platelet Count 255 K/mcL (140-440); RBC 4.78 M/mcL (4.63-6.08); Red Cell Distribution Width 15.9 % (11.5-14.5); WBC 14.4 K/mcL (4.5-11.0)
[2023-02-19 02:17] LABS: ALT/SGPT 15 U/L (<40); AST/SGOT 22 U/L (<40); Albumin 4.2 gm/dL (3.2-5.2); Alkaline Phosphatase 143 U/L (39-117); Amylase 138 U/L (28-100); Bilirubin,Direct < 0.2 mg/dL (0-0.3); Bilirubin,Total 0.5 mg/dL (0.1-1.0); Globulin 3.8 gm/dL (2.2-3.7)
[2023-02-19] MEDS ORDERED: PIPERACILLIN SODIUM/TAZOBACTAM 3.375 GM in DEXTROSE 5% IN WATER 50 ML IV ONE (02:22)
[2023-02-19] MEDS ORDERED: VANCOMYCIN 1,000 MG in 0.9 % SODIUM CHLORIDE 250 ML IV ONE (02:22)
[2023-02-19] MEDS ORDERED: morphine 2 MG/ML VIAL IV PRN (03:37)
[2023-02-19] MEDS ORDERED: ONDANSETRON 4 MG/2 ML VIAL IV PRN (03:37)
[2023-02-19] MEDS ORDERED: DILTIAZEM 25 MG/5 ML VIAL IV ONE ×2 (04:02→04:03)
--- NOTE | 2023-02-19 04:02 | General Surg History&Physical ---
HPI History of Present Illness Patient information: Note initiated : 02/19/23 at 4:00 am Service Date, if different from initiated Date: [] Patient: Fei Rodrigues a 87 y/o M admitted on for abdominal pain/nausea. Chief Complaint: [] Chief complaint: Abdominal distention History of present illness: Mr. Rodrigues is a 87 year old M well-known to the surgical service from past treatments. In July of last year patient underwent a colonoscopy by Dr. Flores, he had a perforation and was taken emergently to the operating room by Dr. Mcfarland. Patient did well after that operation, however now has a ostomy in place secondary to fecal contamination from the perforation. He has subsequently had multiple bouts of small bowel obstruction, these were initially managed by the hospitalist service, however last time patient was here the hospital service refused to admit the patient, recommendation was made to transfer to a higher level of facility secondary to his medical problems however this was not available secondary to no beds being available. Dr. Cohen subsequently admitted the patient during that admission, the patient reports that Dr. Cohen is his doctor and he is the surgeon who primarily manages his bowel obstructions. Patient presents to the emergency room today via EMS with mild abdominal pain, distention and nausea. He reports the symptoms are very similar to the last several time that he had his bowel obstruction. All of his bowel obstructions in the past have really resolved with medical management. Long discussion with the patient during his last hospitalization, he is not desirous of any further surgical intervention. Review of Systems Review of systems: All systems reviewed, negative other than above PFSH PFSH All Active Problems Small bowel obstruction (Acute) Gastroesophageal reflux disease (Acute) Colostomy in place (Chronic) History of intestinal obstruction (Acute) Bowel obstruction (Acute) Small bowel obstruction (Acute) Hypoxia (Acute) Exertional dyspnea (Acute) Dehydration (Acute) Pneumonia (Acute) C. difficile diarrhea (Acute) Complete obstruction of small intestine (Acute) Anemia, normocytic normochromic (Acute) Atrial fibrillation (Acute) Nausea (Acute) Tingling sensation (Acute) Hemarthrosis of knee, right (Acute) Knee injury (Acute) Unstable right knee (Acute) Pain and swelling of right knee (Acute) Medicare annual wellness visit, initial (Acute) PAF (paroxysmal atrial fibrillation) (Chronic) Sinus node dysfunction (Chronic) Nonsustained ventricular tachycardia (Chronic) Lower urinary obstructive symptom (Chronic) BPH w urinary obs/LUTS (Chronic) Diarrhea (Chronic) Closed rib fracture (Acute) CAD (coronary artery disease) (Chronic) Ventricular tachycardia (Acute) Syncope, near (Acute) Hearing loss (Chronic) Cataracts, bilateral (Chronic) Vertigo (Chronic) Malignant neoplasm of bronchus and lung, unspecified site (Chronic) Positional vertigo (Acute) Presence of cardiac pacemaker (Chronic) Bilateral hydrocele (Chronic) Malignant neoplasm of lung (Chronic) Bruit of left carotid artery (Chronic) Weight loss (Chronic) Vasovagal syncope (Chronic 12/18/05) Acute sinusitis (Chronic 02/05/14) Schatzki's ring (Chronic) Lymphadenopathy (Chronic) Peripheral vascular disease (Chronic) Osteoporosis (Chronic) Osteoarthritis (Chronic) Onychomycosis (Chronic) Obstructive uropathy (Chronic) Lichen planus (Chronic) Right inguinal pain (Chronic) Accelerated idioventricular rhythm (Chronic) Nocturnal hypoxemia (Chronic) Hypotension (Chronic) Hyperlipidemia (Chronic) Hydrocele (Chronic 11/29/13) Hammer toe (Chronic) Family history of stress (Chronic) Esophagitis (Chronic) Enlarged prostate (Chronic) Dyspnea (Chronic) Dysphagia (Chronic 11/29/13) Dupuytren's contracture (Chronic) Depression (Chronic) Colon adenoma (Chronic) COPD (chronic obstructive pulmonary disease) (Chronic) Chronic bronchitis (Chronic) Bradycardia (Chronic 12/18/05) Low back pain (Chronic 12/24/06) Actinic keratosis (Chronic) Anemia (Chronic) Abdominal aortic aneurysm (AAA) (Chronic) Medical History Abdominal aortic aneurysm (AAA) Aortic endograft Accelerated idioventricular rhythm Actinic keratosis Acute sinusitis (02/05/14) Anemia BPH w urinary obs/LUTS Improved greatly with Flomax 0.4 mg daily. Bradycardia (12/18/05) Sinus of unknown origina Chronic bronchitis Closed fracture of wrist 10/10 right Closed hip fracture left Closed skull fracture (12/18/05) fell and hit head on the toilet, passed out. Colon adenoma 2004 COPD (chronic obstructive pulmonary disease) Depression Diarrhea Dupuytren's contracture Dysphagia (11/29/13) recurrent Dyspnea Enlarged prostate Esophagitis H/O Family history of stress Gastritis Hammer toe Right second and third toes History of blood transfusion 2 units History of ECG (09/30/15) History of echocardiogram 06/03/15 - [facility]. 03/29/19 - [facility]. History of pacemaker (06/20/10) BIOTRON[employer] MODEL 697226 History of tobacco abuse Stopped Hydrocele (11/29/13) Bilateral large, left greater than right Hyperlipidemia Now on atorvastatin at 20 mg each day Hypotension Beta-aniyah added Lichen planus Low back pain (12/24/06) Lower urinary obstructive symptom Denies history of BPH or urinary obstructive symptoms. States symptoms just started about 6 months ago. Prostate only 2+ today and nontender. Smooth with no nodules. AUA score is 18 today and he has mixed quality of life due to his symptoms. We will check PSA. We will get urine sample with next set of pelvic pain. Lymphadenopathy Perililar. H/O. Malignant neoplasm of bronchus and lung, unspecified site 2011 non-small cell carcinoma Medicare annual wellness visit, initial Nocturnal hypoxemia Overnight pulse ox from August 2020 shows O2 sats <88% for 56 minutes total overnight. Nonsustained ventricular tachycardia Obstructive uropathy Onychomycosis Osteoarthritis Osteoporosis Peripheral vascular disease Asymptomatic, but abnormal MAGALY -0.43 on the right Arterial duplex of bilateral lower extremities ordered Continue statin. Not on aspirin due to being anticoagulated. Right inguinal pain Schatzki's ring Sinus node dysfunction Pacemaker Squamous cell carcinoma lung Vasovagal syncope (12/18/05) and collapse Weight loss Surgical History History of biopsy (09/15/07) right flank lesion History of bronchoscopy (06/01/12) History of colonoscopy (09/06/13) Two polypoid fragments of colonic mucosa with minimal surface hyperplastic change History of esophagogastroduodenoscopy (EGD) (09/07/11) 09/07/11 MICRO: CHRONIC GASTRITIS WITH INTESTINAL METAPLASIA AND FOCAL ACUTE INFLAMMATION. CONSULT: SCHATZKI'S RING, SMALL HIATAL HERNIA, GASTRITIS. 06/30/16 Schatzki's ring dilated and Egan's esophagus. History of exploratory laparotomy 08/03/2022-1. Exploratory laparotomy with resection of sigmoid perforation. 2. End colostomy. 3. Washout and drainage History of lobectomy of lung History of lobectomy of lung 06/11 RIGHT LOWER LOBE followed by chemotherapy History of lung biopsy (05/02/12) History of surgery (06/01/12) Mediastinoscopy History of thoracotomy (06/01/12) RIGHT LOWER LOBE WAS RESECTED THRU A LIMITED RIGHT THORACOTOMY History of tonsillectomy S/P AAA repair (~2012) Status post-operative repair of closed fracture of left hip 2010 hemiarthroplasty Family History Mother , age 76 Diabetes mellitus Heart disease Father , age 61 Heart disease Peptic ulcer Brother CAD (coronary artery disease) Social History household members: spouse housing: house lives independently: Yes marital status: occupational status: retired smoking status: Former smoker alcohol intake frequency: 0-2 drinks per day substance use type: does not use MEDS/ALLERGIES Home Medications and Allergies Home Medications Medication Instructions Recorded Confirmed Type acetaminophen 325 mg tablet 650 mg PO QDAY PRN Pain 06/07/16 01/17/23 History (Tylenol) atorvastatin 20 mg tablet 20 mg PO QDAY 04/03/19 02/19/23 History apixaban 5 mg tablet 5 mg PO BID 09/15/20 02/19/23 History metoprolol succinate 50 mg 50 mg PO QDAY 03/18/22 02/19/23 History tablet,extended release 24 hr magnesium oxide 400 mg PO QDAY 06/09/22 02/19/23 History albuterol sulfate 90 mcg/actuation 2 puff inhalation BID 10/21/22 01/17/23 History aerosol inhaler (Ventolin HFA) Oxygen 11/16/22 01/17/23 History polyethylene glycol 3350 17 gram 17 g PO BID Constipation and 12/27/22 01/17/23 Rx oral powder packet (Miralax) obstruction #100 ea metoclopramide HCl 5 mg tablet 5 mg PO TID Chronic ileus; reflux 01/11/23 02/19/23 Rx #90 tabs tamsulosin 0.4 mg capsule 0.4 mg PO QDAY #90 caps 02/03/23 02/19/23 Rx Allergies Allergy/AdvReac Type Severity Reaction Status Date / Time codeine AdvReac Mild Nausea Verified 01/17/23 09:08 Physical Examination Vital Signs Vital signs: Temp Pulse Resp BP Pulse Ox O2 Del Method O2 Flow Rate 95.6 F L 97 H 17 101/69 98 Nasal Cannula 2 02/19/23 01:00 02/19/23 01:21 02/19/23 03:30 02/19/23 03:30 02/19/23 01:21 02/19/23 01:21 02/19/23 01:21 General physical appearance General physical exam: well developed, well nourished and no distress Eyes Eye exam: PERRL and normal ocular movement ENT ENT exam: normal pinna, normal nares, normal mucosa, no hearing loss and no congestion Head Head exam IM: Present atraumatic and normocephalic Neck Neck exam: no masses, no bruits, trachea midline, no lymphadenopathy and no venous distension Cardiovascular Cardiovascular exam IM: Present normal rate and rhythm Respiratory Respiratory exam: normal expansion, normal respiratory effort, clear to percussi on and clear to auscultation Abdomen Abdomen: Present soft, non tender, bowel sounds (Functioning ostomy) and surgical scars; Absent guarding, rigid, rebound or distended Hernia: Present none Genitourinary Genitourinary (Male): Present normal penis with no external lesions Rectum Rectum: Present normal sphincter tone, no hemorrhoids, no tenderness, no masses and no bleeding Integumentary Integumentary: Present no rash, no growths and no abnormal pigmentation Neurologic Neurologic: Present normal coordination and normal sensation Musculoskeletal Musculoskeletal: Present normal gait and normal posture Psychiatric Psychiatric: Present oriented to time, oriented to person, oriented to place, speech is normal and memory intact Results Labs 02/19/23 01:31 Labs: Abnormal lab results 02/19/23 02/19/23 02/19/23 Range/Units 01:22 01:31 01:31 WBC 14.4 H (4.5-11.0) K/mcL RDW 15.9 H (11.5-14.5) % Neut % (Auto) 88.7 H (38.0-78.0) % Lymph % (Auto) 4.2 L (15.5-49.0) % Lymph # (Auto) 0.61 L (1.50-4.80) K/mcL Immature Gran # 0.06 H (0.00-0.05) K/mcl Absolute Neutrophils 12.80 H (1.80-8.00) K/mcL POC VBG pH (7.32-7.42) POC VBG pCO2 at Temp (41-51) VBG Lactic Acid (0.5-2) POC BUN 31 H (6-20) POC Glucose 137 H (70-105) Alkaline Phosphatase 143 H (39-117) U/L Globulin 3.8 H (2.2-3.7) gm/dL Amylase 138 H (28-100) U/L 02/19/23 Range/Units 01:32 WBC (4.5-11.0) K/mcL RDW (11.5-14.5) % Neut % (Auto) (38.0-78.0) % Lymph % (Auto) (15.5-49.0) % Lymph # (Auto) (1.50-4.80) K/mcL Immature Gran # (0.00-0.05) K/mcl Absolute Neutrophils (1.80-8.00) K/mcL POC VBG pH 7.27 L (7.32-7.42) POC VBG pCO2 at Temp 52.6 H (41-51) VBG Lactic Acid 3.3 H (0.5-2) POC BUN (6-20) POC Glucose (70-105) Alkaline Phosphatase (39-117) U/L Globulin (2.2-3.7) gm/dL Amylase (28-100) U/L Diabetes panel 02/19/23 Range/Units 01:31 AST 22 (<40) U/L ALT 15 (<40) U/L Alkaline Phosphatase 143 H (39-117) U/L Total Protein 8.0 (5.9-8.4) gm/dL Albumin 4.2 (3.2-5.2) gm/dL Calcium panel 02/19/23 Range/Units 01:31 Albumin 4.2 (3.2-5.2) gm/dL Adrenal panel 02/19/23 Range/Units 01:31 Total Bilirubin 0.5 (0.1-1.0) mg/dL AST 22 (<40) U/L ALT 15 (<40) U/L Alkaline Phosphatase 143 H (39-117) U/L Total Protein 8.0 (5.9-8.4) gm/dL Albumin 4.2 (3.2-5.2) gm/dL All other labs normal. A/P Assessment and plan (1) Small bowel obstruction: Plan: This is a pleasant 87-year-old gentleman with multiple medical problems who presents with a partial small bowel obstruction. Discussion with the patient both during this admission and prior, he does not desire any surgical intervention and has resolved his partial small bowel obstructions with medical management in the past. Patient will be admitted for medical management of his partial small bowel obstruction. I will consult the hospitalist service to assist with his medical management. His ostomy is currently functioning, however he has evidence of a small bowel obstruction on CT scan therefore he will be treated n.p.o., NG tube. Status: Acute (2) Colostomy in place: Status: Chronic (3) Atrial fibrillation: Status: Acute (4) Sinus node dysfunction: Status: Chronic Comment: Pacemaker (5) CAD (coronary artery disease): Status: Chronic Comment: Mild to moderate nonobstructive CAD on left heart cath in [place] Qualifiers: Coronary Disease-Associated Artery/Lesion type: [place] artery [place] vs. transplanted heart: [place] heart Associated angina: without angina Qualified Code(s): I25.10 - Atherosclerotic heart disease of [place] coronary artery without angina pectoris (6) Presence of cardiac pacemaker: Status: Chronic Comment: 06/20/10. Detection for high rate on his PPM decreased from 180 to 170. Time Spent With Patient Time: Total time spent is greater than 50% in coordination of care (as documented) at patient's floor/unit and/or counseling patient:
[2023-02-19] MEDS: 0.9 % SODIUM CHLORIDE 10 ML SYRINGE IV SCH ×3 (05:54→20:22)
[2023-02-19] MEDS: DEXTROSE 5%-1/2NS 1,000 ML IV SCH ×2 (05:56→15:03)
[2023-02-19] MEDS ORDERED: METOPROLOL TARTRATE 5 MG/5 ML VIAL IV ONE (07:45)
[2023-02-19] MEDS: METOPROLOL TARTRATE 5 MG/5 ML VIAL IV SCH ×3 (07:46→20:22)
--- NOTE | 2023-02-19 08:23 | Internal Medicine Consult Note ---
HPI Date of Consult Consult Date: 02/19/23 Primary Care Provider: Sai Elizabeth DO Consult Narrative Patient Information: Note initiated : 02/19/23 at 8:21 am Service Date, if different from initiated Date: [] Patient: Fei Rodrigues 87 y/o M admitted on 02/19/23 for abdominal pain/nausea. Chief Complaint: [] cc:: CC: Chris Willis MD Patient presents the ED with nausea vomiting and abdominal pain overnight. Patient's had small bowel obstruction in the past and stated that it felt very similar. 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 Follows with Dr. Mcfarland and Dr. Cohen. Patient denies chest pain or shortness of breath. Patient states that he had developing nausea vomiting and crampy abdominal pain started 1 to 2 days ago. Patient denies chest pain shortness of breath coughing. Also had an episode of A-fib RVR in the ED and was given diltiazem with improvement. Patient does have history of atrial fibrillation. Case is discussed with Dr. Willis and patient was thus admitted. Currently n.p.o. with NG tube in place. Review of Systems: Pertinent positives as above. Denies headache/fever/chills/nausea/vomiting/c hest pain/cough/dyspnea/diarrhea. Remaining 10 point review of system reviewed negative PHYSICAL EXAM General: Alert, Awake, No acute Distress Eyes/N/T: EOMI, no scleral icterus, PERRL, dry MM Head/Neck: neck supple, full ROM, normocephalic atraumatic CV: irreg irreg, No murmurs, normal s1/s2 Pulm: Clear b/l, no wheezing/rhonchi/rales, no respiratory distress Abd: soft, nontender, decreased BS x4, ostomy in place Ext: no clubbing/cyanosis/edema, nontender Neuro: Alert, CN 2-12 grossly intact, no focal deficits, moves all extremities, , sensations intact b/l upper/lower Psychiatric: Skin: warm/dry, normal color PFSH PFSH All Active Problems Small bowel obstruction (Acute) Gastroesophageal reflux disease (Acute) Colostomy in place (Chronic) History of intestinal obstruction (Acute) Bowel obstruction (Acute) Small bowel obstruction (Acute) Hypoxia (Acute) Exertional dyspnea (Acute) Dehydration (Acute) Pneumonia (Acute) C. difficile diarrhea (Acute) Complete obstruction of small intestine (Acute) Anemia, normocytic normochromic (Acute) Atrial fibrillation (Acute) Nausea (Acute) Tingling sensation (Acute) Hemarthrosis of knee, right (Acute) Knee injury (Acute) Unstable right knee (Acute) Pain and swelling of right knee (Acute) Medicare annual wellness visit, initial (Acute) PAF (paroxysmal atrial fibrillation) (Chronic) Sinus node dysfunction (Chronic) Nonsustained ventricular tachycardia (Chronic) Lower urinary obstructive symptom (Chronic) BPH w urinary obs/LUTS (Chronic) Diarrhea (Chronic) Closed rib fracture (Acute) CAD (coronary artery disease) (Chronic) Ventricular tachycardia (Acute) Syncope, near (Acute) Hearing loss (Chronic) Cataracts, bilateral (Chronic) Vertigo (Chronic) Malignant neoplasm of bronchus and lung, unspecified site (Chronic) Positional vertigo (Acute) Presence of cardiac pacemaker (Chronic) Bilateral hydrocele (Chronic) Malignant neoplasm of lung (Chronic) Bruit of left carotid artery (Chronic) Weight loss (Chronic) Vasovagal syncope (Chronic 12/18/05) Acute sinusitis (Chronic 02/05/14) Schatzki's ring (Chronic) Lymphadenopathy (Chronic) Peripheral vascular disease (Chronic) Osteoporosis (Chronic) Osteoarthritis (Chronic) Onychomycosis (Chronic) Obstructive uropathy (Chronic) Lichen planus (Chronic) Right inguinal pain (Chronic) Accelerated idioventricular rhythm (Chronic) Nocturnal hypoxemia (Chronic) Hypotension (Chronic) Hyperlipidemia (Chronic) Hydrocele (Chronic 11/29/13) Hammer toe (Chronic) Family history of stress (Chronic) Esophagitis (Chronic) Enlarged prostate (Chronic) Dyspnea (Chronic) Dysphagia (Chronic 11/29/13) Dupuytren's contracture (Chronic) Depression (Chronic) Colon adenoma (Chronic) COPD (chronic obstructive pulmonary disease) (Chronic) Chronic bronchitis (Chronic) Bradycardia (Chronic 12/18/05) Low back pain (Chronic 12/24/06) Actinic keratosis (Chronic) Anemia (Chronic) Abdominal aortic aneurysm (AAA) (Chronic) Medical History Abdominal aortic aneurysm (AAA) Aortic endograft Accelerated idioventricular rhythm Actinic keratosis Acute sinusitis (02/05/14) Anemia BPH w urinary obs/LUTS Improved greatly with Flomax 0.4 mg daily. Bradycardia (12/18/05) Sinus of unknown origina Chronic bronchitis Closed fracture of wrist 10/10 right Closed hip fracture left Closed skull fracture (12/18/05) fell and hit head on the toilet, passed out. Colon adenoma 2004 COPD (chronic obstructive pulmonary disease) Depression Diarrhea Dupuytren's contracture Dysphagia (11/29/13) recurrent Dyspnea Enlarged prostate Esophagitis H/O Family history of stress Gastritis Hammer toe Right second and third toes History of blood transfusion 2 units History of ECG (09/30/15) History of echocardiogram 06/03/15 - [facility] 03/29/19 - [place] [facility] [facility]. History of pacemaker (06/20/10) BIOTRONIK MODEL [id number] History of tobacco abuse Stopped Hydrocele (11/29/13) Bilateral large, left greater than right Hyperlipidemia Now on atorvastatin at 20 mg each day Hypotension Beta-aniyah added Lichen planus Low back pain (12/24/06) Lower urinary obstructive symptom Denies history of BPH or urinary obstructive symptoms. States symptoms just started about 6 months ago. Prostate only 2+ today and nontender. Smooth with no nodules. AUA score is 18 today and he has mixed quality of life due to his symptoms. We will check PSA. We will get urine sample with next set of pelvic pain. Lymphadenopathy Perililar. H/O. Malignant neoplasm of bronchus and lung, unspecified site 2011 non-small cell carcinoma Medicare annual wellness visit, initial Nocturnal hypoxemia Overnight pulse ox from August 2020 shows O2 sats <88% for 56 minutes total overnight. Nonsustained ventricular tachycardia Obstructive uropathy Onychomycosis Osteoarthritis Osteoporosis Peripheral vascular disease Asymptomatic, but abnormal MAGALY -0.43 on the right Arterial duplex of bilateral lower extremities ordered Continue statin. Not on aspirin due to being anticoagulated. Right inguinal pain Schatzki's ring Sinus node dysfunction Pacemaker Squamous cell carcinoma lung Vasovagal syncope (12/18/05) and collapse Weight loss Surgical History History of biopsy (09/15/07) right flank lesion History of bronchoscopy (06/01/12) History of colonoscopy (09/06/13) Two polypoid fragments of colonic mucosa with minimal surface hyperplastic change History of esophagogastroduodenoscopy (EGD) (09/07/11) 09/07/11 MICRO: CHRONIC GASTRITIS WITH INTESTINAL METAPLASIA AND FOCAL ACUTE INFLAMMATION. CONSULT: SCHATZKI'S RING, SMALL HIATAL HERNIA, GASTRITIS. 06/30/16 Schatzki's ring dilated and Egan's esophagus. History of exploratory laparotomy 08/03/2022-1. Exploratory laparotomy with resection of sigmoid perforation. 2. End colostomy. 3. Washout and drainage History of lobectomy of lung History of lobectomy of lung 06/11 RIGHT LOWER LOBE followed by chemotherapy History of lung biopsy (05/02/12) History of surgery (06/01/12) Mediastinoscopy History of thoracotomy (06/01/12) RIGHT LOWER LOBE WAS RESECTED THRU A LIMITED RIGHT THORACOTOMY History of tonsillectomy S/P AAA repair (~2012) Status post-operative repair of closed fracture of left hip 2009 hemiarthroplasty Family History Mother , age 76 Diabetes mellitus Heart disease Father , age 61 Heart disease Peptic ulcer Brother CAD (coronary artery disease) Social History household members: spouse housing: house lives independently: Yes marital status: occupational status: retired smoking status: Former smoker alcohol intake frequency: 0-2 drinks per day substance use type: does not use MEDS/ALLERGIES Home Medications and Allergies Home Medications Medication Instructions Recorded Confirmed Type acetaminophen 325 mg tablet 650 mg PO QDAY PRN Pain 06/07/16 02/19/23 History (Tylenol) atorvastatin 20 mg tablet 20 mg PO QDAY 04/03/19 02/19/23 History apixaban 5 mg tablet 5 mg PO BID 09/15/20 02/19/23 History metoprolol succinate 50 mg 50 mg PO QDAY 03/18/22 02/19/23 History tablet,extended release 24 hr magnesium oxide 400 mg PO QDAY 06/09/22 02/19/23 History Oxygen 11/16/22 02/19/23 History polyethylene glycol 3350 17 gram 17 g PO BID Constipation and 12/27/22 02/19/23 Rx oral powder packet (Miralax) obstruction #100 ea metoclopramide HCl 5 mg tablet 5 mg PO TID Chronic ileus; reflux 01/11/23 02/19/23 Rx #90 tabs tamsulosin 0.4 mg capsule 0.4 mg PO QDAY #90 caps 02/03/23 02/19/23 Rx Allergies Allergy/AdvReac Type Severity Reaction Status Date / Time codeine AdvReac Mild Nausea Verified 02/19/23 05:32 EXAM Constitutional Vitals: Temp Pulse Resp BP Pulse Ox O2 Del Method O2 Flow Rate 97.1 F 104 H 22 101/76 94 Nasal Cannula 2 02/19/23 07:32 02/19/23 07:32 02/19/23 07:32 02/19/23 07:32 02/19/23 07:32 02/19/23 07:32 02/19/23 07:32 DATA Data Completed and Pending Labs: Labs from last 24 hours 02/19/23 02/19/23 02/19/23 04:17 01:32 01:31 WBC RBC Hgb Hct POC Hct MCV MCH MCHC RDW Plt Count MPV Immature Gran % (Auto) Neut % (Auto) Lymph % (Auto) [place] % (Auto) Eos % (Auto) Baso % (Auto) Lymph # (Auto) [place] # (Auto) Eos # (Auto) Baso # (Auto) Immature Gran # Absolute Neutrophils POC VBG pH 7.32 7.27 L POC VBG pCO2 at Temp 49.1 52.6 H POC VBG pO2 24 L 29 POC VBG HCO3 25.1 24.4 POC VBG Total CO2 27.0 26.0 POC Venous O2 Sat 36.0 L 45.0 POC VBG Base Excess -1.0 -2.0 VBG Lactic Acid 1.8 3.3 H POC Sodium POC Potassium POC Chloride POC Total CO2 POC BUN POC Creatinine POC Glucose POC WB Ioniz Calcium Total Bilirubin 0.5 Direct Bilirubin < 0.2 AST 22 ALT 15 Alkaline Phosphatase 143 H Total Protein 8.0 Albumin 4.2 Globulin 3.8 H Amylase 138 H Lipase 30 02/19/23 02/19/23 01:31 01:22 WBC 14.4 H RBC 4.78 Hgb 13.8 Hct 43.7 POC Hct 46.0 MCV 91.4 MCH 28.9 MCHC 31.6 RDW 15.9 H Plt Count 255 MPV 10.0 Immature Gran % (Auto) 0.4 Neut % (Auto) 88.7 H Lymph % (Auto) 4.2 L [place] % (Auto) 5.8 Eos % (Auto) 0.7 Baso % (Auto) 0.2 Lymph # (Auto) 0.61 L [place] # (Auto) 0.83 Eos # (Auto) 0.10 Baso # (Auto) 0.03 Immature Gran # 0.06 H Absolute Neutrophils 12.80 H POC VBG pH POC VBG pCO2 at Temp POC VBG pO2 POC VBG HCO3 POC VBG Total CO2 POC Venous O2 Sat POC VBG Base Excess VBG Lactic Acid POC Sodium 141 POC Potassium 3.5 POC Chloride 106 POC Total CO2 26.0 POC BUN 31 H POC Creatinine 1.1 POC Glucose 137 H POC WB Ioniz Calcium 1.26 Total Bilirubin Direct Bilirubin AST ALT Alkaline Phosphatase Total Protein Albumin Globulin Amylase Lipase A/P Narrative A/P Narrative: A: *SBO: *Hypovolemia with lactic acidosis: improved *Permanent A-fib w/RVR (h/o same with PPM): -on eliquis/BB at home *COPD (2L @home): *BPH: *Soft BP: BP runs low normally *BPH P: -Dr. Willis for SBO -diet per surgery -prn Nebs, IS/Acapella, RT -Monitor and replace electrolytes -IVF, -Monitor renal function/UOP/electrolytes trend and replace as needed -nilesh IV BB while npo, prn lopressor -supp O2 as per home regimen, prn nebs -pt/ot -restart flomax when oral intake, prn bladder scan -ppx: SCD (hold apixaban for now) / ppi Time Spent With Patient Time: Total time spent is greater than 50% in coordination of care (as documented) at patient's floor/unit and/or counseling patient:
[2023-02-19] MEDS: METOCLOPRAMIDE 10 MG/2 ML VIAL IV SCH ×2 (08:45→20:21)
--- NOTE | 2023-02-19 08:58 | Cat Scan Report ---
History: Abdominal pain, nausea, prior colectomy TECHNIQUE: Following injection of intravenous nonionic contrast the patient was imaged during the portal venous phase from above the diaphragm through the symphysis pubis. Sagittal and coronal reformats were created. The radiation exposure was limited using dose reduction technology. FINDINGS: Severe emphysema is present in both lung bases. There is a superimposed active interstitial inflammatory process in the lateral basal segment right lower lobe. The distal esophagus is mildly distended with fluid. The liver is normal in size and homogeneous. The spleen is normal in size but heterogeneous. There is mild dilatation of intrahepatic ducts. Common bile duct measures approximately 7 mm. No gallstones are seen. No abnormality seen within the pancreas. The adrenals and kidneys are normal. Stomach and small intestine are abnormally dilated. There are multiple air-fluid levels in the small intestine. Small bowel loops measure up to 4.6 cm in diameter. Patient had prior colectomy performed. There is a colostomy in the left anterior abdominal wall. The loops of bowel within the ostomy are not dilated nor inflamed. A transition point is not clearly identified within the small bowel. Patient appears to still have residual right side of the colon which contains fecal material. The large bowel is nondistended. No free fluid or free air present within the abdomen or pelvis. There is no evidence of a mass or abscess. There is a patent endograft in the abdominal aorta extending into the iliacs. Left hip prosthesis is noted. Patient has large bilateral hydroceles. Comparison with the prior CT done on 09/01/22 shows the small bowel obstruction is worse at this time. IMPRESSION: Distal small bowel obstruction of undetermined etiology Interpreted and Authenticated by: Ricky Wang 02/19/23
[2023-02-19] MEDS ORDERED: IPRATROPIUM/ALBUTEROL 3 ML AMPUL.NEB NEB PRN (09:05)
--- NOTE | 2023-02-19 09:11 | XRay Report ---
HISTORY: Small bowel obstruction, nasogastric tube insertion FINDINGS: There is a nasogastric tube in the lower thoracic esophagus. The tip of the catheter has folded upon itself and is pointing superiorly. It has not entered the stomach. Dilated small bowel again seen in the upper abdomen. There is severe pulmonary fibrosis and COPD in the lung bases. There is contrast in both kidneys following the preceding CT scan. IMPRESSION: Abnormal placement of the nasogastric tube which is kinked in the distal esophagus Interpreted and Authenticated by: Ricky Wang 02/19/23
[2023-02-19] MEDS: METOPROLOL TARTRATE 5 MG/5 ML VIAL IV PRN ×2 (11:58→23:09)
[2023-02-19] MEDS: HYDROmorphone 0.5 MG/0.5 ML SYRINGE IV PRN (17:04)
[2023-02-19] MEDS: ONDANSETRON 4 MG/2 ML VIAL IV PRN (23:09)
[2023-02-20] MEDS: DEXTROSE 5%-1/2NS 1,000 ML IV SCH ×3 (01:04→20:55)
[2023-02-20] MEDS: METOPROLOL TARTRATE 5 MG/5 ML VIAL IV SCH ×4 (02:10→21:03)
[2023-02-20] MEDS: HYDROmorphone 0.5 MG/0.5 ML SYRINGE IV PRN ×3 (06:08→16:11)
[2023-02-20] MEDS: 0.9 % SODIUM CHLORIDE 10 ML SYRINGE IV SCH ×3 (06:17→21:02)
[2023-02-20 06:34] LABS: Basophils # (Auto) 0.01 K/mcL (0.00-0.30); Basophils % (Auto) 0.1 % (0.0-2.0); Eosinophils # (Auto) 0.03 K/mcL (0.00-0.70); Eosinophils % (Auto) 0.3 % (0.0-7.0); Hematocrit 39.4 % (40.1-51.0); Hemoglobin 12.5 g/dL (13.7-17.5); Lymphocytes # (Auto) 0.62 K/mcL (1.50-4.80); Lymphocytes % (Auto) 5.8 % (15.5-49.0); Mean Cell Volume 90.6 fL (80.0-100.0); Mean Corpuscular HGB Conc 31.7 g/dL (31.0-36.0); Mean Platelet Volume 10.8 fL (8.8-12.5); Monocytes # (Auto) 0.95 K/mcL (0.10-0.90); Monocytes % (Auto) 8.8 % (1.0-12.0); Neutrophils % (Auto) 84.6 % (38.0-78.0); Platelet Count 223 K/mcL (140-440); RBC 4.35 M/mcL (4.63-6.08); Red Cell Distribution Width 15.9 % (11.5-14.5); WBC 10.8 K/mcL (4.5-11.0)
[2023-02-20 06:59] LABS: ALT/SGPT 9 U/L (<40); AST/SGOT 14 U/L (<40); Albumin 3.6 gm/dL (3.2-5.2); Albumin/Globulin Ratio 1.2 (1.0-2.3); Alkaline Phosphatase 104 U/L (39-117); Bilirubin,Direct < 0.2 mg/dL (0-0.3); Bilirubin,Total 0.4 mg/dL (0.1-1.0); Blood Urea Nitrogen 16 mg/dL (8-23); Calcium 9.5 mg/dL (8.6-10.4); Carbon Dioxide 23 mmol/L (22-30); Chloride 105 mmol/L (96-108); Globulin 3.1 gm/dL (2.2-3.7); Glomerular Filtration Rate 85; Glucose 142 mg/dL (70-105); Lactate Dehydrogenase 208 U/L (135-225); Phosphorous 2.6 mg/dL (2.5-4.5); Triglycerides 65 mg/dL (<150); Uric Acid 4.3 mg/dL (2.5-8.0)
--- NOTE | 2023-02-20 08:14 | Internal Med Progress Note ---
SUBJECTIVE Subjective Patient information: Note initiated : 02/20/23 at 8:12 am Service Date, if different from initiated Date: [] Patient: Fei Rodrigues 87 y/o M admitted on 02/19/23 for abdominal pain/nausea. Chief Complaint: [] Interval history: HPI: Patient presents the ED with nausea vomiting and abdominal pain overnight. Patient's had small bowel obstruction in the past and stated that it felt very similar. 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 Follows with Dr. Mcfarland and Dr. Cohen. Patient denies chest pain or shortness of breath. Patient states that he had developing nausea vomiting and crampy abdominal pain started 1 to 2 days ago. Patient denies chest pain shortness of breath coughing. Also had an episode of A-fib RVR in the ED and was given diltiazem with improvement. Patient does have history of atrial fibrillation. Case is discussed with Dr. Willis and patient was thus admitted. Currently n.p.o. with NG tube in place. 02/20 Patient having bowel movements overnight. Patient did have a little bit of nausea vomiting. Abdominal pain improving. Heart rate in the 90s. Review of Systems: Pertinent positives as above. Denies headache/fever/chills/nausea/vomiting/chest pain/cough/dyspnea/diarrhea. PHYSICAL EXAM General: Alert, Awake, No acute Distress Eyes/N/T: EOMI, no scleral icterus, Head/Neck: neck supple, full ROM, CV: irreg irreg, No murmurs, Pulm: Clear b/l, no wheezing/rhonchi/rales, no respiratory distress Abd: soft, nontender, + BS x4, ostomy in place Ext: no clubbing/cyanosis/edema, nontender Neuro: Alert, no focal deficits, moves all extremities, , sensations intact b/l upper/lower Psychiatric: Skin: warm/dry, normal color Constitutional Vitals: Vital Signs Temp Pulse Resp BP Pulse Ox O2 Del Method O2 Flow Rate 97.0 F 95 H 22 106/75 92 Nasal Cannula 2 02/20/23 08:00 02/20/23 08:00 02/20/23 08:00 02/20/23 08:00 02/20/23 08:00 02/20/23 08:00 02/20/23 08:00 Period Temp Pulse Resp BP Sys/Lovell Pulse Ox O2 Del Method O2 Flow Rate Last 24 Hr 97.0 F-98.0 F 89-138 18-22 96-121/66-84 90-94 Nasal Cannula-Nasal Cannula 2-3 Intake and Output 02/19/23 02/20/23 02/20/23 19:59 03:59 11:59 Intake Total 912 1000 0 Output Total 600 250 810 Balance 312 750 -810 Intake & Output: Intake & Output 02/19/23 02/20/23 02/20/23 19:59 03:59 11:59 Intake Total 912 1000 0 Output Total 600 250 810 Balance 312 750 -810 Intake: IV 912 1000 Dextrose 5%-1/2Ns IV Solution 1 912 1000 ,000 ml @ 100 mls/hr IV .Q10H [facility] Rx#:[id number] Tube Feeding 0 0 0 Output: Gastric Drainage 750 Left Nare NG/OG 750 Void Amount 400 250 Stool 200 60 Other: Urine Appearance Clear Clear Urine Color Dark Yellow Dark Yellow Urine Odor Normal Normal Stool Color Brown Brown Green Green Stool Consistency Liquid Liquid OBJ DATA Labs 02/20/23 05:31 02/20/23 05:31 Labs: Abnormal Lab Results 02/20/23 02/20/23 02/19/23 05:31 05:31 04:17 WBC RBC 4.35 L Hgb 12.5 L Hct 39.4 L RDW 15.9 H Neut % (Auto) 84.6 H Lymph % (Auto) 5.8 L Lymph # (Auto) 0.62 L [place] # (Auto) 0.95 H Immature Gran # Absolute Neutrophils 9.10 H POC VBG pH POC VBG pCO2 at Temp POC VBG pO2 24 L POC Venous O2 Sat 36.0 L VBG Lactic Acid POC BUN Glucose 142 H POC Glucose Alkaline Phosphatase Globulin Amylase 02/19/23 02/19/23 02/19/23 01:32 01:31 01:31 WBC 14.4 H RBC Hgb Hct RDW 15.9 H Neut % (Auto) 88.7 H Lymph % (Auto) 4.2 L Lymph # (Auto) 0.61 L [place] # (Auto) Immature Gran # 0.06 H Absolute Neutrophils 12.80 H POC VBG pH 7.27 L POC VBG pCO2 at Temp 52.6 H POC VBG pO2 POC Venous O2 Sat VBG Lactic Acid 3.3 H POC BUN Glucose POC Glucose Alkaline Phosphatase 143 H Globulin 3.8 H Amylase 138 H 02/19/23 01:22 WBC RBC Hgb Hct RDW Neut % (Auto) Lymph % (Auto) Lymph # (Auto) [place] # (Auto) Immature Gran # Absolute Neutrophils POC VBG pH POC VBG pCO2 at Temp POC VBG pO2 POC Venous O2 Sat VBG Lactic Acid POC BUN 31 H Glucose POC Glucose 137 H Alkaline Phosphatase Globulin Amylase Meds: Medications Albuterol/Ipratropium (Ipratropium/Albuterol 3 Ml Ampul.Neb) 3 ml NEB Q4HP PRN PRN Reason: Shortness Of Breath Hydromorphone HCl (Hydromorphone 0.5 Mg/0.5 Ml Syringe) 0.5 mg IV Q2HP PRN; Protocol PRN Reason: Per Pain Protocol Last Admin: 02/20/23 06:08 Dose: 0.5 mg Dextrose/Sodium Chloride (Dextrose 5%-1/2ns Iv Solution) 1,000 mls @ 100 mls/hr IV .Q10H [facility] Last Admin: 02/20/23 01:04 Dose: 100 mls/hr Metoclopramide HCl (Metoclopramide 10 Mg/2 Ml Vial) 5 mg IV Q12 [facility] Last Admin: 02/19/23 20:21 Dose: 5 mg Metoprolol Tartrate (Metoprolol Tartrate 5 Mg/5 Ml Vial) 5 mg IV Q6H [facility] Last Admin: 02/20/23 02:10 Dose: 5 mg Metoprolol Tartrate (Metoprolol Tartrate 5 Mg/5 Ml Vial) 5 mg IV Q2HP PRN PRN Reason: For a heart rate >110 Last Admin: 02/19/23 23:09 Dose: 5 mg Ondansetron HCl (Ondansetron 4 Mg/2 Ml Vial) 4 mg IV Q6HP PRN PRN Reason: Nausea And Vomiting Last Admin: 02/19/23 23:09 Dose: 4 mg Sodium Chloride (0.9 % Sodium Chloride 10 Ml Syringe) 10 ml IV Q8 [facility] Last Admin: 02/20/23 06:17 Dose: Not Given A/P Narrative A/P Narrative: A: *SBO: BM's o/n *Hypovolemia with lactic acidosis: improved *Permanent A-fib w/RVR (h/o same with PPM): -on eliquis/BB at home *COPD (2L @home): *BPH: *Soft BP: BP runs low normally *BPH P: -Dr. Willis for SBO -diet per surgery -IVF per surgery -prn Nebs, IS/Acapella, RT -Monitor and replace electrolytes -Monitor renal function/UOP/electrolytes trend and replace as needed -nilesh IV BB while npo, prn lopressor -supp O2 as per home regimen, prn nebs -pt/ot -restart flomax when oral intake, prn bladder scan -ppx: SCD (hold apixaban for now, restart if no need for surgery) / ppi Time Spent With Patient Time: Total time spent is greater than 50% in coordination of care (as documented) at patient's floor/unit and/or counseling patient: Subsequent: Total time with patient: 35 - 49 minutes QUALITY Stroke Symptom Onset Unknown: No VTE Deep Vein Thrombosis/Pulmonary Embolism Present on Admission: No
[2023-02-20] MEDS: METOCLOPRAMIDE 10 MG/2 ML VIAL IV SCH ×2 (08:28→21:02)
--- NOTE | 2023-02-20 09:27 | General Surgery Progress Note ---
SUBJECTIVE Subjective Patient information: Note initiated : 02/20/23 at 9:19 am Service Date, if different from initiated Date: [] Patient: Fei Rodrigues 87 y/o M admitted on 02/19/23 for abdominal pain/nausea. Chief Complaint: [] Interval history: Patient feels well overnight, ostomy continues to function. He has no abdominal pain at this time, no fevers or chills. Constitutional Vitals: Vital Signs Temp Pulse Resp BP Pulse Ox O2 Del Method O2 Flow Rate 97.0 F 95 H 22 106/75 92 Nasal Cannula 2 02/20/23 08:00 02/20/23 08:00 02/20/23 08:00 02/20/23 08:00 02/20/23 08:00 02/20/23 08:00 02/20/23 08:00 Period Temp Pulse Resp BP Sys/Lovell Pulse Ox O2 Del Method O2 Flow Rate Last 24 Hr 97.0 F-98.0 F 89-138 18-22 96-121/66-84 90-94 Nasal Cannula- Nasal Cannula 2-3 Intake and Output 02/19/23 02/20/23 02/20/23 19:59 03:59 11:59 Intake Total 912 1000 0 Output Total 600 250 810 Balance 312 750 -810 Intake & Output: Intake & Output 02/19/23 02/20/23 02/20/23 19:59 03:59 11:59 Intake Total 912 1000 0 Output Total 600 250 810 Balance 312 750 -810 Intake: IV 912 1000 Dextrose 5%-1/2Ns IV Solution 1 912 1000 ,000 ml @ 100 mls/hr IV .Q10H [facility] Rx#:[id number] Tube Feeding 0 0 0 Output: Gastric Drainage 750 Left Nare NG/OG 750 Void Amount 400 250 Stool 200 60 Other: Urine Appearance Clear Clear Urine Color Dark Yellow Dark Yellow Urine Odor Normal Normal Stool Color Brown Brown Green Green Stool Consistency Liquid Liquid General appearance: cooperative and no acute distress GI/Abdominal GI/Abdominal exam: Present soft; Absent distended, rebound or tenderness Additional comments: Ostomy is pink and functioning A/P Assessment and plan (1) Small bowel obstruction: Plan: Patient feels somewhat better at this time. Small bowel follow-through today. Status: Acute Time Spent With Patient Time: Total time spent is greater than 50% in coordination of care (as documented) at patient's floor/unit and/or counseling patient:
[2023-02-20] MEDS: ONDANSETRON 4 MG/2 ML VIAL IV PRN ×2 (10:07→15:08)
[2023-02-20] MEDS: METOPROLOL TARTRATE 5 MG/5 ML VIAL IV PRN ×2 (17:08→19:46)
--- NOTE | 2023-02-20 19:08 | XRay Report ---
HISTORY: Small bowel obstruction FINDINGS: Winchman/Crane Operator film shows the nasogastric tube kinked in the distal esophagus. There are dilated loops of small bowel throughout the abdomen. Patient drank dilute Gastrografin contrast. Serial images were obtained for seven hours. At seven hours, much of the contrast was still located in the stomach. During that time frame, the nasogastric tube had been advanced into the stomach. There are are multiple loops of dilated jejunum with dilute contrast. Distal small bowel did not opacify. The point of obstruction cannot be determined. IMPRESSION: Distal small bowel obstruction of undetermined etiology Interpreted and Authenticated by: Ricky Wang 02/20/23
[2023-02-21] MEDS: METOPROLOL TARTRATE 5 MG/5 ML VIAL IV SCH ×4 (02:23→20:57)
[2023-02-21] MEDS: ONDANSETRON 4 MG/2 ML VIAL IV PRN (04:25)
[2023-02-21] MEDS: 0.9 % SODIUM CHLORIDE 10 ML SYRINGE IV SCH ×3 (05:44→20:57)
[2023-02-21] MEDS: DEXTROSE 5%-1/2NS 1,000 ML IV SCH ×2 (08:06→18:50)
[2023-02-21] MEDS: METOCLOPRAMIDE 10 MG/2 ML VIAL IV SCH ×2 (08:13→20:57)
--- NOTE | 2023-02-21 09:18 | XRay Report ---
CLINICAL INFORMATION: NG tube placement COMPARISON: None. FINDINGS: NG tip overlies the gastric body small amount of enteric contrast material seen within the proximal stomach. Few loops of small bowel in upper mid abdomen are mildly dilated with decompression of distal small bowel and colon. Aortobiiliac endovascular graft is grossly normal. Leak There is no free air, soft tissue mass, organomegaly or pathologic calcification. IMPRESSION: Partial small bowel obstruction pattern. NG tube tip overlying the gastric body Interpreted and Authenticated by: Sai Casper 02/21/23
--- NOTE | 2023-02-21 14:27 | Internal Med Progress Note ---
SUBJECTIVE Subjective Patient information: Note initiated : 02/21/23 at 2:15 pm Service Date, if different from initiated Date: [] Patient: Fei Rodrigues 87 y/o M admitted on 02/19/23 for abdominal pain/nausea. Chief Complaint: [] Interval history: Patient presents the ED with nausea vomiting and abdominal pain overnight. Patient's had small bowel obstruction in the past and stated that it felt very similar. 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 Follows with Dr. Mcfarland and Dr. Cohen. Patient denies chest pain or shortness of breath. Patient states that he had developing nausea vomiting and crampy abdominal pain started 1 to 2 days ago. Patient denies chest pain shortness of breath coughing. Also had an episode of A-fib RVR in the ED and was given diltiazem with improvement. Patient does have history of atrial fibrillation. Case is discussed with Dr. Willis and patient was thus admitted. Currently n.p.o. with NG tube in place. 02/20 Patient having bowel movements overnight. Patient did have a little bit of [place] vomiting. Abdominal pain improving. Heart rate in the 90s. 02/21: Patient was agitated and pulled his NG tube/ IV access overnight. Now the NG tube and IV access were replaced. Hand mittens on. There was no bowel movement overnight. Continue NG tube, n.p.o. status with IV fluid, and symptoms management. Continue Lopressor IV both scheduled and PRN for heart rate control. Continue to hold Eliquis for now because of the NG tube and because of the fact that surgery might eventually be indicated. Overall condition guarded. Constitutional Vitals: Vital Signs Temp Pulse Resp BP Pulse Ox O2 Del Method O2 Flow Rate 36.6 C 92 H 16 135/92 95 Nasal Cannula 6 02/21/23 12:00 02/21/23 12:00 02/21/23 12:00 02/21/23 12:00 02/21/23 12:00 02/21/23 12:00 02/21/23 12:00 Period Temp Pulse Resp BP Sys/Lovell Pulse Ox O2 Del Method O2 Flow Rate Last 24 Hr 36.6 C-37.0 C 80-135 14-20 113-144/68-98 90-96 Nasal Cannula- Nasal Cannula 2-6 Intake and Output 02/21/23 02/21/23 02/21/23 03:59 11:59 19:59 Intake Total 1000 1000 Output Total 200 2400 Balance 800 -1400 Weight 61.507 kg 61.507 kg Patient Weight 02/22/23 03:59 Weight 61.507 kg Intake & Output: Intake & Output 02/21/23 02/21/23 02/21/23 03:59 11:59 19:59 Intake Total 1000 1000 Output Total 200 2400 Balance 800 -1400 Weight 61.507 kg 61.507 kg Intake: IV 1000 1000 Dextrose 5%-1/2Ns IV Solution 1 1000 1000 ,000 ml @ 100 mls/hr IV .Q10H [facility] Rx#:[id number] Tube Feeding 0 0 Output: Gastric Drainage 2400 Left Nare NG/OG 2400 Void Amount 200 Other: Urine Appearance Clear Urine Color Dark Yellow Urine Odor Strong Stool Color Brown Stool Consistency Loose # Unmeasured Emesis 1 Exam: Hand mittens Head Head exam: Present atraumatic and normal inspection Eye Eye exam: Present normal appearance ENT ENT exam: Present mucous membranes moist, normal exam and normal external ear exam Additional comments: NG tube in place Neck Neck exam: Present normal inspection Respiratory Respiratory exam: Present normal respiratory exam Cardiovascular Cardiovascular exam: Present irregular rhythm GI/Abdominal GI/Abdominal exam: Present diminished bowel sounds Additional comments: Ostomy bag in place Extremities Exam Additional comments: Hand mittens in place Back Exam Back exam: Present normal inspection Neurological Exam Neurological exam: Present alert and altered Skin Skin exam: Present intact and warm OBJ DATA Labs 02/20/23 05:31 02/20/23 05:31 Labs: Abnormal Lab Results 02/20/23 02/20/23 02/19/23 05:31 05:31 04:17 WBC RBC 4.35 L Hgb 12.5 L Hct 39.4 L RDW 15.9 H Neut % (Auto) 84.6 H Lymph % (Auto) 5.8 L Lymph # (Auto) 0.62 L [place] # (Auto) 0.95 H Immature Gran # Absolute Neutrophils 9.10 H POC VBG pH POC VBG pCO2 at Temp POC VBG pO2 24 L POC Venous O2 Sat 36.0 L VBG Lactic Acid POC BUN Glucose 142 H POC Glucose Alkaline Phosphatase Globulin Amylase 02/19/23 02/19/23 02/19/23 01:32 01:31 01:31 WBC 14.4 H RBC Hgb Hct RDW 15.9 H Neut % (Auto) 88.7 H Lymph % (Auto) 4.2 L Lymph # (Auto) 0.61 L [place] # (Auto) Immature Gran # 0.06 H Absolute Neutrophils 12.80 H POC VBG pH 7.27 L POC VBG pCO2 at Temp 52.6 H POC VBG pO2 POC Venous O2 Sat VBG Lactic Acid 3.3 H POC BUN Glucose POC Glucose Alkaline Phosphatase 143 H Globulin 3.8 H Amylase 138 H 02/19/23 01:22 WBC RBC Hgb Hct RDW Neut % (Auto) Lymph % (Auto) Lymph # (Auto) [place] # (Auto) Immature Gran # Absolute Neutrophils POC VBG pH POC VBG pCO2 at Temp POC VBG pO2 POC Venous O2 Sat VBG Lactic Acid POC BUN 31 H Glucose POC Glucose 137 H Alkaline Phosphatase Globulin Amylase Meds: Medications Albuterol/Ipratropium (Ipratropium/Albuterol 3 Ml Ampul.Neb) 3 ml NEB Q4HP PRN PRN Reason: Shortness Of Breath Hydromorphone HCl (Hydromorphone 0.5 Mg/0.5 Ml Syringe) 0.5 mg IV Q2HP PRN; Protocol PRN Reason: Per Pain Protocol Last Admin: 02/20/23 16:11 Dose: 0.5 mg Dextrose/Sodium Chloride (Dextrose 5%-1/2ns Iv Solution) 1,000 mls @ 100 mls/hr IV .Q10H [facility] Last Admin: 02/21/23 08:06 Dose: 100 mls/hr Metoclopramide HCl (Metoclopramide 10 Mg/2 Ml Vial) 5 mg IV Q12 [facility] Last Admin: 02/21/23 08:13 Dose: 5 mg Metoprolol Tartrate (Metoprolol Tartrate 5 Mg/5 Ml Vial) 5 mg IV Q6H [facility] Last Admin: 02/21/23 08:06 Dose: 5 mg Metoprolol Tartrate (Metoprolol Tartrate 5 Mg/5 Ml Vial) 5 mg IV Q2HP PRN PRN Reason: For a heart rate >110 Last Admin: 02/20/23 19:46 Dose: 5 mg Ondansetron HCl (Ondansetron 4 Mg/2 Ml Vial) 4 mg IV Q6HP PRN PRN Reason: Nausea And Vomiting Last Admin: 02/21/23 04:25 Dose: 4 mg Sodium Chloride (0.9 % Sodium Chloride 10 Ml Syringe) 10 ml IV Q8 [facility] Last Admin: 02/21/23 05:44 Dose: Not Given A/P Assessment and plan (1) Small bowel obstruction: Status: Acute (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 (6) Delirium: Status: Acute Narrative A/P Narrative: Assessment and Plans: 1. Small bowel obstruction: Management as per primary team Dr. Willis Patient is currently n.p.o. status, NG tube, and IV fluid for hydration purposes Continue to hold Eliquis in case if surgery is indicated Symptoms control as per primary team Dr. Willis 2. Permanent atrial fibrillation's with RVR: Lopressor 5mg IV q6hr scheduled Lopressor 5mg IV q2hr PRN HR>120bpm, hold if SBP<90 and/or DBP<50mmHg Continue to hold Eliquis in case if surgery is indicated 3. h/o BPH: Resume Flomax when NG tube is removed and patient is taking food and medication again 4. h/o COPD, stable: Continue bronchodilator from home regiment 5. Acute delirium: Treat underlying factors, see above Frequent reorientations during the day and protected sleep during the night GI ppx: Protonix IV DVT ppx: SCDs Code status: Full Prognosis: guarded Disposition: Inpatient med surg; PT Time Spent With Patient Time: Total time spent is greater than 50% in coordination of care (as documented) at patient's floor/unit and/or counseling patient: Subsequent: Total time with patient: 35 - 49 minutes QUALITY Stroke Symptom Onset Unknown: No VTE Deep Vein Thrombosis/Pulmonary Embolism Present on Admission: No
--- NOTE | 2023-02-21 15:47 | General Surgery Progress Note ---
SUBJECTIVE Subjective Patient information: Note initiated : 02/21/23 at 3:46 pm Service Date, if different from initiated Date: [] Patient: Fei Rodrigues 87 y/o M admitted on 02/19/23 for abdominal pain/nausea. Chief Complaint: [] Principal diagnosis: Small bowel obstruction Interval history: NG tube repositioned yesterday into correct position, patient pulled NG tube out partially overnight, replaced this morning. Follow-up KUB with NG tube in correct position. Constitutional Vitals: Vital Signs Temp Pulse Resp BP Pulse Ox O2 Del Method O2 Flow Rate 97.8 F 92 H 16 135/92 95 Nasal Cannula 6 02/21/23 12:00 02/21/23 12:00 02/21/23 12:00 02/21/23 12:00 02/21/23 12:00 02/21/23 12:00 02/21/23 12:00 Period Temp Pulse Resp BP Sys/Lovell Pulse Ox O2 Del Method O2 Flow Rate Last 24 Hr 97.8 F-98.6 F 80-135 14-20 113-144/77-98 90-96 Nasal Cannula- Nasal Cannula 2-6 Intake and Output 02/21/23 02/21/23 02/21/23 03:59 11:59 19:59 Intake Total 1000 1000 Output Total 200 2400 Balance 800 -1400 Weight 135 lb 9.6 oz 135 lb 9.6 oz Patient Weight 02/22/23 03:59 Weight 135 lb 9.6 oz Intake & Output: Intake & Output 02/21/23 02/21/23 02/21/23 03:59 11:59 19:59 Intake Total 1000 1000 Output Total 200 2400 Balance 800 -1400 Weight 135 lb 9.6 oz 135 lb 9.6 oz Intake: IV 1000 1000 Dextrose 5%-1/2Ns IV Solution 1 1000 1000 ,000 ml @ 100 mls/hr IV .Q10H [facility] Rx#:[id number] Tube Feeding 0 0 Output: Gastric Drainage 2400 Left Nare NG/OG 2400 Void Amount 200 Other: Urine Appearance Clear Urine Color Dark Yellow Urine Odor Strong Stool Color Brown Stool Consistency Loose # Unmeasured Emesis 1 General appearance: cooperative and no acute distress GI/Abdominal GI/Abdominal exam: Present soft; Absent distended, rebound or tenderness Additional comments: Ostomy is pink and functioning A/P Assessment and plan (1) Small bowel obstruction: Status: Acute Plan Continued small bowel obstruction pattern. Continue NG tube decompression. Plan small bowel follow-through tomorrow. Time Spent With Patient Time: Total time spent is greater than 50% in coordination of care (as documented) at patient's floor/unit and/or counseling patient:
[2023-02-22] MEDS: METOPROLOL TARTRATE 5 MG/5 ML VIAL IV PRN ×2 (00:59→23:22)
[2023-02-22] MEDS: METOPROLOL TARTRATE 5 MG/5 ML VIAL IV SCH ×4 (02:47→20:55)
[2023-02-22] MEDS: DEXTROSE 5%-1/2NS 1,000 ML IV SCH ×3 (05:09→19:36)
[2023-02-22] MEDS: 0.9 % SODIUM CHLORIDE 10 ML SYRINGE IV SCH ×3 (05:09→21:12)
[2023-02-22] MEDS: PANTOPRAZOLE 40 MG VIAL IV SCH (07:05)
[2023-02-22] MEDS: METOCLOPRAMIDE 10 MG/2 ML VIAL IV SCH ×2 (09:12→21:11)
--- NOTE | 2023-02-22 10:35 | Internal Med Progress Note ---
SUBJECTIVE Subjective Patient information: Note initiated : 02/22/23 at 10:28 am Service Date, if different from initiated Date: [] Patient: Fei Rodrigues 87 y/o M admitted on 02/19/23 for abdominal pain/nausea. Chief Complaint: [] Principal diagnosis: Small bowel obstruction Interval history: Patient presents the ED with nausea vomiting and abdominal pain overnight. Patient's had small bowel obstruction in the past and stated that it felt very similar. 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 Follows with Dr. Mcfarland and Dr. Cohen. Patient denies chest pain or shortness of breath. Patient states that he had developing nausea vomiting and crampy abdominal pain started 1 to 2 days ago. Patient denies chest pain shortness of breath coughing. Also had an episode of A-fib RVR in the ED and was given diltiazem with improvement. Patient does have history of atrial fibrillation. Case is discussed with Dr. Willis and patient was thus admitted. Currently n.p.o. with NG tube in place. 02/20 Patient having bowel movements overnight. Patient did have a little bit of nausea vomiting. Abdominal pain improving. Heart rate in the 90s. 02/21: Patient was agitated and pulled his NG tube/ IV access overnight. Now the NG tube and IV access were replaced. Hand mittens on. There was no bowel movement overnight. Continue NG tube, n.p.o. status with IV fluid, and symptoms management. Continue Lopressor IV both scheduled and PRN for heart rate control. Continue to hold Eliquis for now because of the NG tube and because of the fact that surgery might eventually be indicated. Overall condition guarded. 02/22: Still does not have a bowel movement overnight. Patient is on 2L/min oxygen. Initial blood culture grew Leuconostoc species in one set one bottle. Dr. Willis is ordering a small bowel follow-through with contrast today. Continue NG tube, n.p.o. status with IV fluid, and symptoms management. Continue Lopressor IV both scheduled and PRN for heart rate control. Continue to hold Eliquis for now because of the NG tube and because of the fact that surgery might eventually be indicated. Overall condition guarded. Constitutional Vitals: Vital Signs Temp Pulse Resp BP Pulse Ox O2 Del Method O2 Flow Rate 36.7 C 67 16 109/81 96 Nasal Cannula 2 02/22/23 08:00 02/22/23 08:00 02/22/23 08:00 02/22/23 08:00 02/22/23 08:00 02/22/23 08:00 02/22/23 03:09 Period Temp Pulse Resp BP Sys/Lovell Pulse Ox O2 Del Method O2 Flow Rate Last 24 Hr 36.1 C-36.7 C 67-137 16-18 109-135/57-92 92-96 Nasal Cannula- Room Air 2-6 Intake and Output 02/21/23 02/22/23 02/22/23 19:59 03:59 11:59 Intake Total 1000 0 1000 Output Total 0 1400 1200 Balance 1000 -1400 -200 Weight 61.507 kg 64.229 kg Intake & Output: Intake & Output 02/21/23 02/22/23 02/22/23 19:59 03:59 11:59 Intake Total 1000 0 1000 Output Total 0 1400 1200 Balance 1000 -1400 -200 Weight 61.507 kg 64.229 kg Intake: IV 1000 1000 Dextrose 5%-1/2Ns IV Solution 1 1000 1000 ,000 ml @ 100 mls/hr IV .Q10H [facility] Rx#:[id number] Tube Feeding 0 0 0 Output: Gastric Drainage 1400 1200 Left Nare NG/OG 1400 1200 Void Amount 0 Other: Percent of Meal Consumed 0% Nourishment/Supplement name NPO # Voids 1 Exam: Hand mittens Head Head exam: Present atraumatic and normal inspection Eye Eye exam: Present normal appearance ENT ENT exam: Present mucous membranes moist, normal exam and normal external ear exam Additional comments: Nasal cannula and NG tube in place Neck Neck exam: Present normal inspection Respiratory Respiratory exam: Present normal respiratory exam Cardiovascular Cardiovascular exam: Present irregular rhythm GI/Abdominal GI/Abdominal exam: Present diminished bowel sounds Additional comments: Ostomy bag in place Extremities Exam Additional comments: Hand mittens in place Back Exam Back exam: Present normal inspection Neurological Exam Neurological exam: Present alert and altered Skin Skin exam: Present intact and warm OBJ DATA Labs 02/20/23 05:31 02/20/23 05:31 Labs: Abnormal Lab Results 02/20/23 02/20/23 05:31 05:31 RBC 4.35 L Hgb 12.5 L Hct 39.4 L RDW 15.9 H Neut % (Auto) 84.6 H Lymph % (Auto) 5.8 L Lymph # (Auto) 0.62 L [place] # (Auto) 0.95 H Absolute Neutrophils 9.10 H Glucose 142 H Meds: Medications Albuterol/Ipratropium (Ipratropium/Albuterol 3 Ml Ampul.Neb) 3 ml NEB Q4HP PRN PRN Reason: Shortness Of Breath Hydromorphone HCl (Hydromorphone 0.5 Mg/0.5 Ml Syringe) 0.5 mg IV Q2HP PRN; Protocol PRN Reason: Per Pain Protocol Last Admin: 02/20/23 16:11 Dose: 0.5 mg Dextrose/Sodium Chloride (Dextrose 5%-1/2ns Iv Solution) 1,000 mls @ 100 mls/hr IV .Q10H [facility] Last Admin: 02/22/23 05:09 Dose: 100 mls/hr Metoclopramide HCl (Metoclopramide 10 Mg/2 Ml Vial) 5 mg IV Q12 [facility] Last Admin: 02/22/23 09:12 Dose: 5 mg Metoprolol Tartrate (Metoprolol Tartrate 5 Mg/5 Ml Vial) 5 mg IV Q6H [facility] Last Admin: 02/22/23 09:12 Dose: 5 mg Metoprolol Tartrate (Metoprolol Tartrate 5 Mg/5 Ml Vial) 5 mg IV Q2HP PRN PRN Reason: For a heart rate >110 Last Admin: 02/22/23 00:59 Dose: 5 mg Ondansetron HCl (Ondansetron 4 Mg/2 Ml Vial) 4 mg IV Q6HP PRN PRN Reason: Nausea And Vomiting Last Admin: 02/21/23 04:25 Dose: 4 mg Pantoprazole Sodium (Pantoprazole 40 Mg Vial) 40 mg IV QAMAC [facility] Last Admin: 02/22/23 07:05 Dose: 40 mg Sodium Chloride (0.9 % Sodium Chloride 10 Ml Syringe) 10 ml IV Q8 [facility] Last Admin: 02/22/23 05:09 Dose: Not Given A/P Assessment and plan (1) Small bowel obstruction: Status: Acute (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 (6) Delirium: Status: Acute (7) Bacteremia: Status: Acute Narrative A/P Narrative: Assessment and Plans: 1. Small bowel obstruction: Management as per primary team Dr. Willis Patient is currently n.p.o. status, NG tube, and IV fluid for hydration purposes Continue to hold Eliquis in case if surgery is indicated Symptoms control as per primary team Dr. Willis Small bowel follow through today 2. Permanent atrial fibrillation's with RVR: Lopressor 5mg IV q6hr scheduled Lopressor 5mg IV q2hr PRN HR>120bpm, hold if SBP<90 and/or DBP<50mmHg Continue to hold Eliquis in case if surgery is indicated 3. h/o BPH: Resume Flomax when NG tube is removed and patient is taking food and medication again 4. h/o COPD, stable: Continue bronchodilator from home regiment 5. Acute delirium: Treat underlying factors, see above Frequent reorientations during the day and protected sleep during the night 6. Bacteremia: DDx: skin contaminations Initial blood culture grew Leuconostoc species in one set one bottle Repeat blood cultures X2 today GI ppx: Protonix IV DVT ppx: SCDs Code status: DNR Prognosis: guarded Disposition: Inpatient med surg; PT Time Spent With Patient Time: Total time spent is greater than 50% in coordination of care (as documented) at patient's floor/unit and/or counseling patient: Subsequent: Total time with patient: 35 - 49 minutes QUALITY Stroke Symptom Onset Unknown: No VTE Deep Vein Thrombosis/Pulmonary Embolism Present on Admission: No
[2023-02-22] MEDS: ONDANSETRON 4 MG/2 ML VIAL IV PRN (10:42)
--- NOTE | 2023-02-22 12:11 | General Surgery Progress Note ---
SUBJECTIVE Subjective Patient information: Note initiated : 02/22/23 at 12:10 pm Service Date, if different from initiated Date: [] Patient: Fei Rodrigues 87 y/o M admitted on 02/19/23 for abdominal pain/nausea. Chief Complaint: [] Principal diagnosis: Small bowel obstruction Interval history: No complaints overnight. Continue on NG tube suction. Continues to have bowel function but is slightly distended. Pertinent ROS: No fevers chills nausea or vomiting Constitutional Vitals: Vital Signs Temp Pulse Resp BP Pulse Ox O2 Del Method O2 Flow Rate 98.0 F 67 16 109/81 96 Nasal Cannula 2 02/22/23 08:00 02/22/23 08:00 02/22/23 08:00 02/22/23 08:00 02/22/23 08:00 02/22/23 08:00 02/22/23 03:09 Period Temp Pulse Resp BP Sys/Lovell Pulse Ox O2 Del Method O2 Flow Rate Last 24 Hr 97.0 F-98.1 F 67-137 16-18 109-134/57-89 92-96 Nasal Cannula- Room Air 2-3 Intake and Output 02/22/23 02/22/23 02/22/23 03:59 11:59 19:59 Intake Total 0 1000 Output Total 1400 1200 Balance -1400 -200 Weight 141 lb 9.6 oz Intake & Output: Intake & Output 02/22/23 02/22/23 02/22/23 03:59 11:59 19:59 Intake Total 0 1000 Output Total 1400 1200 Balance -1400 -200 Weight 141 lb 9.6 oz Intake: IV 1000 Dextrose 5%-1/2Ns IV Solution 1 1000 ,000 ml @ 100 mls/hr IV .Q10H [facility] Rx#:[id number] Tube Feeding 0 0 Output: Gastric Drainage 1400 1200 Left Nare NG/OG 1400 1200 Other: # Voids 1 General appearance: cooperative and no acute distress GI/Abdominal GI/Abdominal exam: Present soft; Absent distended, rebound or tenderness Additional comments: Ostomy is pink and functioning A/P Assessment and plan (1) Small bowel obstruction: Plan: This pleasant 87-year-old gentleman who presents with a partial small bowel obstruction. Small bowel follow-through today. Further options based on results. Status: Acute Time Spent With Patient Time: Total time spent is greater than 50% in coordination of care (as documented) at patient's floor/unit and/or counseling patient:
--- NOTE | 2023-02-22 17:37 | XRay Report ---
CLINICAL INFORMATION: Recurrent distal small bowel obstruction. 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 COMPARISON: Abdomen and pelvic CT three days prior 02/19/2025 TECHNIQUE: Following ux consultant imaging, are soluble enteric contrast was infused through an indwelling NG tube and serial imaging was obtained over nine hours FINDINGS: There is marked dilatation of the stomach, duodenum and jejunum to the transition point in the right upper quadrant. This is also seen in retrospect on the CT. On CT, there is a high-grade stricture within the small bowel on axial image 63 in the right upper quadrant. The distal small bowel and colon are decompressed with no contrast admitted into the distal small bowel and colon even at nine hours. The lesion that IMPRESSION: Severe high-grade partial versus complete small bowel obstruction of the proximal ileum due to stricture in the right upper quadrant. Interpreted and Authenticated by: Sai Casper 02/22/23
[2023-02-22] MEDS ORDERED: ceFAZolin 1 GM VIAL IV SCH (21:30)
[2023-02-22] MEDS ORDERED: ceFAZolin 1 GM VIAL ONE (21:32)
[2023-02-22] MEDS ORDERED: ROCURONIUM 10 MG/ML ML IV ONE (21:33)
[2023-02-22] MEDS ORDERED: LIDOCAINE HCL/PF 100 MG/5 ML SYRINGE IV ONE (21:33)
[2023-02-22] MEDS ORDERED: PHENYLephrine 1 MG/10 ML SYRINGE (ANEST) ONE (21:33)
[2023-02-22] MEDS ORDERED: SUCCINYLCHOLINE 20 MG/ML ML IV ONE (21:33)
[2023-02-22] MEDS ORDERED: ESMOLOL 100 MG/10 ML VIAL IV ONE (21:33)
[2023-02-22] MEDS ORDERED: METOPROLOL TARTRATE 5 MG/5 ML VIAL IV ONE (21:33)
[2023-02-22] MEDS ORDERED: fentaNYL 100 MCG/2 ML VIAL IV ONE (21:33)
[2023-02-22] MEDS ORDERED: GLYCOPYRROLATE 0.2 MG/ML VIAL IV ONE (21:33)
[2023-02-22] MEDS ORDERED: KETAMINE 50 MG/ML Syringe (ANEST) IV ONE (21:33)
[2023-02-22] MEDS ORDERED: PROPOFOL 200 MG/20 ML VIAL IV ONE (21:33)
[2023-02-22] MEDS ORDERED: ONDANSETRON 4 MG/2 ML VIAL ONE (21:33)
[2023-02-22] MEDS ORDERED: EPINEPHrine 1 MG/10 ML (1:10,000) SYRINGE IV ONE (21:33)
[2023-02-22] MEDS ORDERED: DEXAMETHASONE 10 MG/ML VIAL ONE (21:33)
[2023-02-22] MEDS ORDERED: ePHEDrine 50 MG/5 ML SYRINGE (ANEST) IV ONE (21:33)
--- NOTE | 2023-02-22 23:04 | Operative Note ---
Brief Operative Note Date of procedure: 02/22/23 Pre-op diagnosis: Small bowel obstruction Post-op diagnosis: same Procedure: Exploratory laparotomy with extensive lysis of adhesions Grafts/Implants: No Anesthesia: GETA Findings: Multiple loops of adherent bowel, internal hernia secondary to adhesions. Complications: none Surgeon: Chris Willis Estimated blood loss (cc): 100 Specimens Removed/Pathology: none sent Condition: stable Disposition: PACU Operative Note Operative Note: After all risk benefits and alternatives to the procedure were discussed with the patient and his family at length, they verbalized understanding and desire to continue with the operation. Patient was taken main operating room placed upon the operative table. General anesthesia was induced over endotracheal tube. Patient's prepped and draped in the standard sterile surgical fashion. Surgical timeout was taken to verify patient and procedure being performed. Midline prior laparotomy incision was used this was carried down through the skin and subcutaneous tissue the abdominal cavity was entered under direct vision and several loops of small bowel were densely adherent to the midline, these were carefully taken down with sharp dissection. Once the entire incision was opened after taking multiple loops of small bowel with sharp dissection full abdominal expiration was undertaken. There was multiple loops of decompressed small bowel these were followed back to several adhesions in the pelvis which were carefully taken down with sharp dissection. There was 1 densely adherent loops to the rectal stump and this was able to be released without difficulty. Following the bowel back there was largely dilated small bowel leading back to a loop of bowel which was twisted underneath itself and densely adherent to the transverse colon. This was carefully taken down with sharp dissection. Once this loop was taken down the remainder of the bowel was free, it was ran from the ligament of Treitz down to the terminal ileum and the bowel started to return to normal function. The small bowel was inspected several times, 1 small serosal tear was oversewn with interrupted 3-0 Vicryl sutures. No further injuries from the adhesiolysis were identified. Anesthesia replaced the NG tube which was verified to be in stomach, once the NG tube was placed in the stomach it was decompressed of approximately 1 L of fluid. The abdominal cavity was copiously irrigated and all irrigant was suctioned free from the abdominal cavity. A 19 [place] drain was placed in the pelvis through a separate right lower quadrant stab incision. The midline laparotomy incision was then closed with a running looped PDS suture. Skin was closed with surgical rosie. The drain was secured with a interrupted 3-0 nylon suture. Midline incision was covered with a Prevena dressing, the ostomy appliance was reapplied and the drain was placed to close to suction. Patient was then transferred intubated but stable to the intensive care unit. Patient tolerated procedure well.
[2023-02-22] MEDS ORDERED: PROPOFOL 1,000 MG in PREMIX 1 BAG IV ONE (23:24)
[2023-02-22] MEDS ORDERED: fentaNYL 2,500 MCG in 0.9 % SODIUM CHLORIDE 200 ML IV SCH (23:30)
[2023-02-22] MEDS ORDERED: HEPARIN/NS 500 ML IV SCH (23:30)
[2023-02-22] MEDS ORDERED: fentaNYL 50 ML ONE (23:32)
[2023-02-22] MEDS ORDERED: PROPOFOL 100 ML IV ONE (23:32)
[2023-02-22] MEDS ORDERED: DILTIAZEM 125 MG/25 ML VIAL IV ONE (23:32)
[2023-02-22] MEDS: DILTIAZEM 125 MG in DEXTROSE 5% IN WATER 100 ML IV SCH (23:41)
[2023-02-22] MEDS ORDERED: NOREPINEPHRINE BITARTRATE 4 MG/4 ML VIAL IV ONE (23:43)
[2023-02-22] MEDS ORDERED: MIDAZOLAM HCL 50 MG in 0.9 % SODIUM CHLORIDE 90 ML IV SCH (23:45)
[2023-02-22] MEDS: NOREPINEPHRINE BITARTRATE 8 MG in 0.9 % SODIUM CHLORIDE 242 ML IV SCH (23:59)
[2023-02-23] MEDS: 0.9 % SODIUM CHLORIDE 250 ML IV SCH ×2 (00:01→11:46)
[2023-02-23] MEDS: METOPROLOL TARTRATE 5 MG/5 ML VIAL IV SCH ×4 (01:36→20:08)
[2023-02-23] MEDS: DEXTROSE 5%-1/2NS 1,000 ML IV SCH (01:49)
[2023-02-23] MEDS: 0.9 % SODIUM CHLORIDE 10 ML SYRINGE IV SCH ×3 (05:06→20:08)
[2023-02-23] MEDS ORDERED: NOREPINEPHRINE BITARTRATE 4 MG/4 ML VIAL IV ONE (05:13)
[2023-02-23 06:33] LABS: Basophils # (Auto) 0.05 K/mcL (0.00-0.30); Basophils % (Auto) 0.2 % (0.0-2.0); Eosinophils # (Auto) 0.01 K/mcL (0.00-0.70); Eosinophils % (Auto) 0 % (0.0-7.0); Hematocrit 41.9 % (40.1-51.0); Hemoglobin 12.9 g/dL (13.7-17.5); Lymphocytes % (Auto) 3.5 % (15.5-49.0); Mean Cell Volume 93.7 fL (80.0-100.0); Mean Corpuscular HGB Conc 30.8 g/dL (31.0-36.0); Mean Platelet Volume 10.3 fL (8.8-12.5); Monocytes % (Auto) 9.7 % (1.0-12.0); Neutrophils % (Auto) 86.1 % (38.0-78.0); Platelet Count 262 K/mcL (140-440); RBC 4.47 M/mcL (4.63-6.08); Red Cell Distribution Width 15.6 % (11.5-14.5); WBC 22.7 K/mcL (4.5-11.0)
[2023-02-23 07:02] LABS: ALT/SGPT 11 U/L (<40); AST/SGOT 19 U/L (<40); Albumin 3.4 gm/dL (3.2-5.2); Albumin/Globulin Ratio 1.2 (1.0-2.3); Alkaline Phosphatase 99 U/L (39-117); Bilirubin,Total 0.7 mg/dL (0.1-1.0); Blood Urea Nitrogen 23 mg/dL (8-23); Calcium 7.5 mg/dL (8.6-10.4); Carbon Dioxide 23 mmol/L (22-30); Chloride 99 mmol/L (96-108); Globulin 2.8 gm/dL (2.2-3.7); Glomerular Filtration Rate 54; Glucose 306 mg/dL (70-105)
[2023-02-23] MEDS ORDERED: INSULIN LISPRO 1 UNIT/0.01 ML UNIT SQ SCH (07:30)
[2023-02-23] MEDS ORDERED: DEXTROSE 31 GM ORAL.SUSP PO PRN (07:49)
[2023-02-23] MEDS ORDERED: DEXTROSE 50% 50 ML VIAL IV PRN (07:49)
[2023-02-23] MEDS: DEXTROSE 5%-1/2NS W/20MEQ KCL 1,000 ML IV SCH ×2 (07:53→18:02)
[2023-02-23] MEDS: CHLORHEXIDINE GLUCONATE 1 ML ORAL.SOL SWABMOUTH SCH ×2 (08:18→20:08)
[2023-02-23] MEDS: PANTOPRAZOLE 40 MG VIAL IV SCH (08:19)
[2023-02-23] MEDS: METOCLOPRAMIDE 10 MG/2 ML VIAL IV SCH ×2 (08:19→20:07)
[2023-02-23] MEDS ORDERED: PROPOFOL 1,000 MG in PREMIX 1 BAG IV SCH (08:45)
--- NOTE | 2023-02-23 09:10 | XRay Report ---
CLINICAL INFORMATION: Hypoxia COMPARISON: 2021 and 12/24/2022 TECHNIQUE: Portable FINDINGS: The heart size, mediastinum and pulmonary vessels are unremarkable. Pacemaker and leads in stable satisfactory position. NG and endotracheal tubes in satisfactory position. 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 A small alveolar infiltrate in the lateral right midlung show slight worsening. Small bilateral pleural effusions noted. IMPRESSION: Small infiltrate lateral right midlung worsening since exam two months prior. 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
--- NOTE | 2023-02-23 10:06 | Internal Med Progress Note ---
SUBJECTIVE Subjective Patient information: Note initiated : 02/23/23 at 10:04 am Service Date, if different from initiated Date: [] Patient: Fei Rodrigues 87 y/o M admitted on 02/19/23 for abdominal pain/nausea. Chief Complaint: [] Principal diagnosis: Small bowel obstruction Interval history: Patient presents the ED with nausea vomiting and abdominal pain overnight. Patient's had small bowel obstruction in the past and stated that it felt very similar. 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 Follows with Dr. Mcfarland and Dr. Cohen. Patient denies chest pain or shortness of breath. Patient states that he had developing nausea vomiting and crampy abdominal pain started 1 to 2 days ago. Patient denies chest pain shortness of breath coughing. Also had an episode of A-fib RVR in the ED and was given diltiazem with improvement. Patient does have history of atrial fibrillation. Case is discussed with Dr. Willis and patient was thus admitted. Currently n.p.o. with NG tube in place. 02/20 Patient having bowel movements overnight. Patient did have a little bit of nausea vomiting. Abdominal pain improving. Heart rate in the 90s. 02/21: Patient was agitated and pulled his NG tube/ IV access overnight. Now the NG tube and IV access were replaced. Hand mittens on. There was no bowel movement overnight. Continue NG tube, n.p.o. status with IV fluid, and symptoms management. Continue Lopressor IV both scheduled and PRN for heart rate control. Continue to hold Eliquis for now because of the NG tube and because of the fact that surgery might eventually be indicated. Overall condition guarded. 02/22: Still does not have a bowel movement overnight. Patient is on 2L/min oxygen. Initial blood culture grew Leuconostoc species in one set one bottle. Dr. Willis is ordering a small bowel follow-through with contrast today. Continue NG tube, n.p.o. status with IV fluid, and symptoms management. Continue Lopressor IV both scheduled and PRN for heart rate control. Continue to hold Eliquis for now because of the NG tube and because of the fact that surgery might eventually be indicated. Overall condition guarded. 02/23: Dr. Willis took patient to the OR on evening of 02/22 for ex lap with lysis of adhesion. Patient transferred to ICU after returning back from the OR. Patient intubated and mechanically ventilated with the following settings: volume AC, RR 18, Vt 500, PEEP 5, FiO2 30%. Fentanyl and Propofol drip. Cardizem drip. Levophed drip. D5 1/2NS w/ KCL 20mEq @125cc/hr. NPO. No ostomy bag output. Zosyn to cover any intra-abdominal infection. Daily sedation holiday for extubation trial. Overall condition extremely guarded Pertinent ROS: Not obtained due to clinical situations. Constitutional Vitals: Vital Signs Temp Pulse Resp BP Pulse Ox O2 Del Method O2 Flow Rate 36.9 C 71 17 111/77 96 Mechanical Ventilation 2 02/23/23 08:00 02/23/23 09:01 02/23/23 09:01 02/23/23 09:00 02/23/23 09:01 02/23/23 07:08 02/22/23 19:36 Period Temp Pulse Resp BP Sys/Lovell Pulse Ox O2 Del Method O2 Flow Rate Last 24 Hr 36.1 C-37.2 C 43-166 10-34 82-155/55-115 95-100 Mechanical Ventilation-Room Air 2-2 Intake and Output 02/22/23 02/23/23 02/23/23 19:59 03:59 11:59 Intake Total 895 626 0495 Output Total 175 815 305 Balance 790 32 892 Weight 62.142 kg Intake & Output: Intake & Output 02/22/23 02/23/23 02/23/23 19:59 03:59 11:59 Intake Total 430 504 5190 Output Total 175 815 305 Balance 790 32 892 Weight 62.142 kg Intake: IV 620 580 5648 Dextrose 5%-1/2Ns IV Solution 1 965 804 758 ,000 ml @ 125 mls/hr IV .Q8H [facility] Rx#:[id number] Cardizem 125 mg In Dextrose 5% 28 26 in Water 100 ml @ 5 MG/HR 5 mls /hr IV Q12H [facility] Rx#:[id number] Levophed 8 mg In Sodium 5 324 Chloride 0.9% 242 ml @ 10 MCG/ MIN 18.75 mls/hr IV Q14H [facility] Rx #:[id number] fentaNYL 2,500 MCG In Sodium 10 89 Chloride 0.9% 200 ml @ 25 MCG/ HR 2.5 mls/hr IV Q24H [facility] Rx#: [id number] Tube Feeding 0 0 0 Output: Gastric Drainage 400 200 Left Nare NG/OG 400 Right Nare 200 Drainage 260 30 Right Lower Abdomen TENA Drain 260 30 Drainage 15 Right Lower Abdomen TENA Drain 15 Urine Catheter Amount 155 60 Void Amount 175 Other: Percent of Meal Consumed 0% Urine Appearance Clear Clear Cloudy Uretheral (Michaels) Clear Urine Color Yellow Dark Yellow Dark Natalya Dark Yellow Light Natalya Uretheral (Michaels) Dark Natalya Urine Odor Normal Exam: Hand mittens Head Head exam: Present atraumatic and normal inspection Eye Additional comments: Closed ENT ENT exam: Present mucous membranes moist, normal exam and normal external ear exam Additional comments: ET tube in place Neck Neck exam: Present normal inspection Respiratory Respiratory exam: Present decreased breath sounds Cardiovascular Cardiovascular exam: Present irregular rhythm Additional comments: peripheral edema GI/Abdominal GI/Abdominal exam: Present diminished bowel sounds Additional comments: Ostomy bag TENA drain Ventral incision with wound vac Additional comments: Michales catheter in place Scrotal edema Extremities Exam Extremities exam: Present pedal edema Back Exam Back exam: Present normal inspection Neurological Exam Neurological exam: Present alert and oriented X3 Skin Skin exam: Present intact and warm OBJ DATA Labs 02/23/23 05:49 02/23/23 05:49 Labs: Abnormal Lab Results 02/23/23 02/23/23 02/23/23 06:58 05:49 05:49 WBC 22.7 H RBC 4.47 L Hgb 12.9 L MCHC 30.8 L RDW 15.6 H Neut % (Auto) 86.1 H Lymph % (Auto) 3.5 L Lymph # (Auto) 0.80 L Archuleta # (Auto) 2.20 H Immature Gran # 0.11 H Absolute Neutrophils 19.55 H POC pH POC pCO2 47.9 H POC pO2 113 H POC HCO3 28.4 H POC Total CO2 30.0 H POC ABG Base Excess ABG Lactic Acid 3.4 H Hgb O2 Saturation 98.0 H Potassium 3.1 L Glucose 306 H Calcium 7.5 L 02/22/23 23:52 WBC RBC Hgb MCHC RDW Neut % (Auto) Lymph % (Auto) Lymph # (Auto) Archuleta # (Auto) Immature Gran # Absolute Neutrophils POC pH 7.34 L POC pCO2 60.7 H* POC pO2 153 H POC HCO3 32.4 H POC Total CO2 34.0 H POC ABG Base Excess 7.0 H ABG Lactic Acid 4.0 H* Hgb O2 Saturation 99.0 H Potassium Glucose Calcium Meds: Medications Albuterol/Ipratropium (Ipratropium/Albuterol 3 Ml Ampul.Neb) 3 ml NEB Q4HP PRN PRN Reason: Shortness Of Breath Chlorhexidine Gluconate (Chlorhexidine Gluconate 1 Ml Oral.Yusra) 15 ml SWABMOUTH BID [facility] Last Admin: 02/23/23 08:18 Dose: 15 ml Dextrose (Dextrose 50% 50 Ml Vial) 0 ml IV UD PRN PRN Reason: Per Sliding Scale Diagnostic Test (Pha) (Accu-Chek 1 Each Strip) 1 each FS Q6 [facility] Glucose (Dextrose 31 Gm Oral.Susp) 15 gm PO PRN PRN PRN Reason: Hypoglycemia Fentanyl 2,500 mcg/ Sodium (Chloride) 250 mls @ 2.5 mls/hr IV Q24H [facility]; Protocol Last Titration: 02/23/23 08:18 Dose: 75 mcg/hr, 7.5 mls/hr Diltiazem HCl 125 mg/ Dextrose 125 mls @ 5 mls/hr IV Q12H [facility]; Protocol Last Titration: 02/23/23 07:30 Dose: 10 mg/hr, 10 mls/hr Heparin Sodium/Sodium Chloride (Heparin/Ns) 500 mls @ 0 mls/hr IV .Q0M [facility]; Protocol Norepinephrine Bitartrate 8 mg (/ Sodium Chloride) 250 mls @ 18.75 mls/hr IV Q14H [facility]; Protocol Last Titration: 02/23/23 09:57 Dose: Infused Sodium Chloride (Sodium Chloride 0.9%) 250 mls @ 20 mls/hr IV .[id number] [facility] Last Admin: 02/23/23 00:01 Dose: Not Given Potassium Chloride/Dextrose/Sod Cl (Dextrose 5%-1/2ns W/20meq Kcl) 1,000 mls @ 125 mls/hr IV .Q8H [facility] Last Admin: 02/23/23 07:53 Dose: 125 mls/hr Propofol 1,000 mg/ Premix 100 mls @ 1.864 mls/hr IV .Q24H [facility]; Protocol Last Admin: 02/23/23 09:20 Dose: 5 mcg/kg/min, 1.864 mls/hr Piperacillin Sod/Tazobactam (Sod 3.375 gm/ Dextrose) 50 mls @ 100 mls/hr IV Q6H [facility]; Protocol Insulin Human Lispro (Insulin Lispro 1 Unit/0.01 Ml Unit) 0 unit SQ Q6 [facility]; Protocol Metoclopramide HCl (Metoclopramide 10 Mg/2 Ml Vial) 5 mg IV Q12 [facility] Last Admin: 02/23/23 08:19 Dose: 5 mg Metoprolol Tartrate (Metoprolol Tartrate 5 Mg/5 Ml Vial) 5 mg IV Q6H [facility] Last Admin: 02/23/23 08:19 Dose: Not Given Metoprolol Tartrate (Metoprolol Tartrate 5 Mg/5 Ml Vial) 5 mg IV Q2HP PRN PRN Reason: For a heart rate >110 Last Admin: 02/22/23 23:22 Dose: 5 mg Ondansetron HCl (Ondansetron 4 Mg/2 Ml Vial) 4 mg IV Q6HP PRN PRN Reason: Nausea And Vomiting Last Admin: 02/22/23 10:42 Dose: 4 mg Pantoprazole Sodium (Pantoprazole 40 Mg Vial) 40 mg IV QAMAC [facility] Last Admin: 02/23/23 08:19 Dose: 40 mg Sodium Chloride (0.9 % Sodium Chloride 10 Ml Syringe) 10 ml IV Q8 [facility] Last Admin: 02/23/23 05:06 Dose: 10 ml A/P Assessment and plan (1) Small bowel obstruction: Status: Acute (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 (6) Delirium: Status: Acute (7) Bacteremia: Status: Acute Narrative A/P Narrative: Assessment and Plans: 1. Small bowel obstruction: Dr. Willis took patient to the OR on evening of 02/22 for ex lap with lysis of adhesion. Patient transferred to ICU after returning back from the OR. Patient intubated and mechanically ventilated with the following settings: volume AC, RR 18, Vt 500, PEEP 5, FiO2 30%. Fentanyl and Propofol drip. Cardizem drip. Levo phed drip. D5 1/2NS w/ KCL 20mEq @125cc/hr. NPO. No ostomy bag output. Zosyn to cover any intra-abdominal infection. Daily sedation holiday for extubation trial. 2. Permanent atrial fibrillation's with RVR: Cardizem drip Continue to hold Eliquis 3. h/o BPH: Resume Flomax when NG tube is removed and patient is taking food and medication again 4. h/o COPD, stable: Continue bronchodilator from home regiment 5. Acute delirium: Treat underlying factors, see above Frequent reorientations during the day and protected sleep during the night 6. Bacteremia: DDx: skin contaminations Initial blood culture grew Leuconostoc species in one set one bottle Repeat blood cultures X2 on 02/22, no growth to date Zosyn cbc w/ auto diff in the morning to trend WBC GI ppx: Protonix IV DVT ppx: SCDs Code status: DNR Prognosis: Extremely guarded Disposition: Inpatient ICU Critical Care Time: 60min Time Spent With Patient Time: Total time spent is greater than 50% in coordination of care (as documented) at patient's floor/unit and/or counseling patient: Subsequent: Total time with patient: 50 - 65 Minutes Critical Care Time: Yes Total Critical Care Time: 60 QUALITY Stroke Symptom Onset Unknown: No VTE Deep Vein Thrombosis/Pulmonary Embolism Present on Admission: No
[2023-02-23] MEDS: NOREPINEPHRINE BITARTRATE 8 MG in 0.9 % SODIUM CHLORIDE 242 ML IV SCH ×4 (10:25→22:25)
[2023-02-23] MEDS: DILTIAZEM 125 MG in DEXTROSE 5% IN WATER 100 ML IV SCH ×2 (10:26→22:48)
[2023-02-23] MEDS: PIPERACILLIN SODIUM/TAZOBACTAM 3.375 GM in DEXTROSE 5% IN WATER 50 ML IV SCH ×4 (10:26→23:55)
--- NOTE | 2023-02-23 10:36 | General Surgery Progress Note ---
SUBJECTIVE Subjective Patient information: Note initiated : 02/23/23 at 10:34 am Service Date, if different from initiated Date: [] Patient: Fei Rodrigues 87 y/o M admitted on 02/19/23 for abdominal pain/nausea. Chief Complaint: [] Principal diagnosis: Small bowel obstruction Interval history: Status post exploratory laparotomy with extensive lysis of adhesions overnight. Patient remains intubated in the ICU in guarded condition. Constitutional Vitals: Vital Signs Temp Pulse Resp BP Pulse Ox O2 Del Method O2 Flow Rate 98.4 F 71 18 111/77 96 Mechanical Ventilation 2 02/23/23 08:00 02/23/23 09:01 02/23/23 10:25 02/23/23 09:00 02/23/23 10:25 02/23/23 07:08 02/22/23 19:36 Period Temp Pulse Resp BP Sys/Lovell Pulse Ox O2 Del Method O2 Flow Rate Last 24 Hr 97.0 F-98.9 F 43-166 10-34 82-155/55-115 95-100 Mechanical Ventilation-Room Air 2-2 Intake and Output 02/22/23 02/23/23 02/23/23 19:59 03:59 11:59 Intake Total 964 057 7944 Output Total 175 815 305 Balance 790 32 921 Weight 137 lb Intake & Output: Intake & Output 02/22/23 02/23/23 02/23/23 19:59 03:59 11:59 Intake Total 641 572 5195 Output Total 175 815 305 Balance 790 32 921 Weight 137 lb Intake: IV 633 381 6872 Dextrose 5%-1/2Ns IV Solution 1 965 804 758 ,000 ml @ 125 mls/hr IV .Q8H [facility] Rx#:[id number] Cardizem 125 mg In Dextrose 5% 28 55 in Water 100 ml @ 5 MG/HR 5 mls /hr IV Q12H [facility] Rx#:[id number] Levophed 8 mg In Sodium 5 324 Chloride 0.9% 242 ml @ 10 MCG/ MIN 18.75 mls/hr IV Q14H [facility] Rx #:[id number] fentaNYL 2,500 MCG In Sodium 10 89 Chloride 0.9% 200 ml @ 25 MCG/ HR 2.5 mls/hr IV Q24H [facility] Rx#: [id number] Tube Feeding 0 0 0 Output: Gastric Drainage 400 200 Left Nare NG/OG 400 Right Nare 200 Drainage 260 30 Right Lower Abdomen TENA Drain 260 30 Drainage 15 Right Lower Abdomen TENA Drain 15 Urine Catheter Amount 155 60 Void Amount 175 Other: Percent of Meal Consumed 0% Urine Appearance Clear Clear Cloudy Uretheral (Michaels) Clear Urine Color Yellow Dark Yellow Dark Natalya Dark Yellow Light Natalya Uretheral (Michaels) Dark Natalya Urine Odor Normal Exam: Sedated, intubated GI/Abdominal GI/Abdominal exam: Present soft; Absent distended Additional comments: Incision dressed with Prevena. Ostomy pink A/P Assessment and plan (1) Small bowel obstruction: Plan: Continue n.p.o., NG tube. Dr. Mcfarland to follow patient. Status: Acute Time Spent With Patient Time: Total time spent is greater than 50% in coordination of care (as documented) at patient's floor/unit and/or counseling patient:
[2023-02-23] MEDS: INSULIN LISPRO 1 UNIT/0.01 ML UNIT SQ SCH ×2 (11:45→18:03)
[2023-02-23 15:03] LABS: ABG Methemoglobin 0.2 % (0.4-1.5); Total Hemoglobin 15.5 gm/Dl (13.5-16.5); VBG Base Excess -3 (-2-3); VBG Oxygen Saturation 88.5 % (40.0-70.0); VBG PCO2 29.5 mmHg (41.0-51.0); VBG PH 7.45 U (7.32-7.42); VBG PO2 94.5 mmHg (25.0-40.0); VBG Total CO2 20.9 mmol/L (25.0-29.0)
[2023-02-23] MEDS: ACETAMINOPHEN 650 MG/65 ML BAG IV PRN (16:20)
[2023-02-24] MEDS: ACETAMINOPHEN 650 MG/65 ML BAG IV PRN ×3 (00:09→20:52)
[2023-02-24] MEDS: INSULIN LISPRO 1 UNIT/0.01 ML UNIT SQ SCH ×5 (00:09→23:56)
[2023-02-24] MEDS: 0.9 % SODIUM CHLORIDE 250 ML IV SCH ×3 (01:54→23:57)
[2023-02-24] MEDS: METOPROLOL TARTRATE 5 MG/5 ML VIAL IV SCH ×4 (01:57→20:37)
[2023-02-24] MEDS: DEXTROSE 5%-1/2NS W/20MEQ KCL 1,000 ML IV SCH ×3 (02:23→10:06)
[2023-02-24] MEDS ORDERED: NOREPINEPHRINE BITARTRATE 4 MG/4 ML VIAL IV ONE (02:32)
[2023-02-24] MEDS: NOREPINEPHRINE BITARTRATE 8 MG in 0.9 % SODIUM CHLORIDE 242 ML IV SCH ×5 (02:33→22:03)
[2023-02-24] MEDS: ONDANSETRON 4 MG/2 ML VIAL IV PRN (04:31)
[2023-02-24] MEDS: METOPROLOL TARTRATE 5 MG/5 ML VIAL IV PRN (05:32)
[2023-02-24] MEDS: PIPERACILLIN SODIUM/TAZOBACTAM 3.375 GM in DEXTROSE 5% IN WATER 50 ML IV SCH ×4 (05:32→23:57)
[2023-02-24] MEDS: 0.9 % SODIUM CHLORIDE 10 ML SYRINGE IV SCH ×4 (05:33→20:37)
[2023-02-24 06:49] LABS: Basophils # (Auto) 0.05 K/mcL (0.00-0.30); Basophils % (Auto) 0.3 % (0.0-2.0); Eosinophils # (Auto) 0.07 K/mcL (0.00-0.70); Eosinophils % (Auto) 0.4 % (0.0-7.0); Hematocrit 45.2 % (40.1-51.0); Hemoglobin 14.3 g/dL (13.7-17.5); Lymphocytes # (Auto) 1.51 K/mcL (1.50-4.80); Lymphocytes % (Auto) 7.6 % (15.5-49.0); Mean Corpuscular HGB Conc 31.6 g/dL (31.0-36.0); Mean Platelet Volume 10.7 fL (8.8-12.5); Monocytes # (Auto) 2.36 K/mcL (0.10-0.90); Monocytes % (Auto) 11.8 % (1.0-12.0); Neutrophils % (Auto) 79.2 % (38.0-78.0); Platelet Count 192 K/mcL (140-440); RBC 4.81 M/mcL (4.63-6.08)
[2023-02-24] MEDS: PANTOPRAZOLE 40 MG VIAL IV SCH (07:15)
[2023-02-24 08:31] LABS: ALT/SGPT 6 U/L (<40); AST/SGOT 16 U/L (<40); Alkaline Phosphatase 89 U/L (39-117); Bilirubin,Direct 0.4 mg/dL (<0.3); Blood Urea Nitrogen 27 mg/dL (8-23); Calcium 8.3 mg/dL (8.6-10.4); Carbon Dioxide 21 mmol/L (22-30); Chloride 101 mmol/L (96-108); Globulin 3.1 gm/dL (2.2-3.7); Glomerular Filtration Rate 76; Glucose 153 mg/dL (70-105); Lactate Dehydrogenase 257 U/L (135-225); Phosphorous 2.2 mg/dL (2.5-4.5); Triglycerides 90 mg/dL (<150); Uric Acid 4.3 mg/dL (2.5-8.0)
[2023-02-24] MEDS: CHLORHEXIDINE GLUCONATE 1 ML ORAL.SOL SWABMOUTH SCH ×2 (08:42→20:38)
[2023-02-24] MEDS: METOCLOPRAMIDE 10 MG/2 ML VIAL IV SCH ×2 (08:42→20:37)
--- NOTE | 2023-02-24 08:58 | Internal Med Progress Note ---
SUBJECTIVE Subjective Patient information: Note initiated : 02/24/23 at 8:58 am Service Date, if different from initiated Date: [] Patient: Fei Rodrigues 87 y/o M admitted on 02/19/23 for abdominal pain/nausea. Chief Complaint: [] Principal diagnosis: Small bowel obstruction Interval history: Patient presents the ED with nausea vomiting and abdominal pain overnight. Patient's had small bowel obstruction in the past and stated that it felt very similar. 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 Follows with Dr. Mcfarland and Dr. Cohen. Patient denies chest pain or shortness of breath. Patient states that he had developing nausea vomiting and crampy abdominal pain started 1 to 2 days ago. Patient denies chest pain shortness of breath coughing. Also had an episode of A-fib RVR in the ED and was given diltiazem with improvement. Patient does have history of atrial fibrillation. Case is discussed with Dr. Willis and patient was thus admitted. Currently n.p.o. with NG tube in place. 02/20 Patient having bowel movements overnight. Patient did have a little bit of nausea vomiting. Abdominal pain improving. Heart rate in the 90s. 02/21: Patient was agitated and pulled his NG tube/ IV access overnight. Now the NG tube and IV access were replaced. Hand mittens on. There was no bowel movement overnight. Continue NG tube, n.p.o. status with IV fluid, and symptoms management. Continue Lopressor IV both scheduled and PRN for heart rate control. Continue to hold Eliquis for now because of the NG tube and because of the fact that surgery might eventually be indicated. Overall condition guarded. 02/22: Still does not have a bowel movement overnight. Patient is on 2L/min oxygen. Initial blood culture grew Leuconostoc species in one set one bottle. Dr. Willis is ordering a small bowel follow-through with contrast today. Continue NG tube, n.p.o. status with IV fluid, and symptoms management. Continue Lopressor IV both scheduled and PRN for heart rate control. Continue to hold Eliquis for now because of the NG tube and because of the fact that surgery might eventually be indicated. Overall condition guarded. 02/23: Dr. Willis took patient to the OR on evening of 02/22 for ex lap with lysis of adhesion. Patient transferred to ICU after returning back from the OR. Patient intubated and mechanically ventilated with the following settings: volume AC, RR 18, Vt 500, PEEP 5, FiO2 30%. Fentanyl and Propofol drip. Cardizem drip. Levophed drip. D5 1/2NS w/ KCL 20mEq @125cc/hr. NPO. No ostomy bag output. Zosyn to cover any intra-abdominal infection. Daily sedation holiday for extubation trial. Overall condition extremely guarded 02/24: Patient was extubated yesterday afternoon. Fentanyl and propofol drip were off. Cardizem drip was also off. Patient is currently still on Levophed drip. NG tube in place with only minimal output. Ostomy bag no output. He is on 4 L/min nasal cannula oxygen. Patient has adequate urine output overnight. Patient is complaining of moderate pain around his abdominal incision sites. Continue D5 half NS with KCl 20 mEq at 125 cc/min. We will check with Dr. Willis regarding timing for feeding either enterically or TPN. Continue pain c ontrol with Ultram and and Dilaudid IV, respectively for different severity of pain. Continue Zosyn for coverage of any intra-abdominal infection. Overall condition still extremely guarded. Stay in ICU. Physical therapy evaluation and treatment. Constitutional Vitals: Vital Signs Temp Pulse Resp BP Pulse Ox O2 Del Method O2 Flow Rate 36.9 C 68 30 H 85/68 92 Nasal Cannula 4 02/24/23 08:00 02/24/23 05:31 02/24/23 06:00 02/24/23 06:00 02/24/23 06:00 02/24/23 06:00 02/24/23 06:00 Period Temp Pulse Resp BP Sys/Lovell Pulse Ox O2 Del Method O2 Flow Rate Last 24 Hr 36.6 C-37.1 C 27-109 0-31 66-138/39-120 86-100 Nasal Cannula- Oxymask 2-5 Intake and Output 02/23/23 02/24/23 02/24/23 19:59 03:59 11:59 Intake Total 1509 1477 337 Output Total 418 360 155 Balance 1091 1117 182 Weight 60.101 kg Intake & Output: Intake & Output 02/23/23 02/24/23 02/24/23 19:59 03:59 11:59 Intake Total 1509 1477 337 Output Total 418 360 155 Balance 1091 1117 182 Weight 60.101 kg Intake: IV 1509 1477 337 Dextrose 5%-1/2Ns W/20Meq KCl 1 1000 1000 ,000 ml @ 125 mls/hr IV .Q8H [facility] Rx#:[id number] Cardizem 125 mg In Dextrose 5% 19 12 in Water 100 ml @ 5 MG/HR 5 mls /hr IV Q12H [facility] Rx#:[id number] Levophed 8 mg In Sodium 325 350 272 Chloride 0.9% 242 ml @ 10 MCG/ MIN 18.75 mls/hr IV Q14H [facility] Rx #:[id number] Zosyn 3.375 gm In Dextrose 5% 100 50 in Water 50 ml @ 100 mls/hr IV Q6H [facility] Rx#:[id number] Oral 0 Tube Feeding 0 0 0 Output: Gastric Drainage 35 0 Right Nare 35 0 Drainage 35 20 Right Lower Abdomen TENA Drain 35 20 Drainage 35 Right Lower Abdomen TENA Drain 35 Urine Catheter Amount 313 360 135 Other: Urine Appearance Clear Clear Clear Uretheral (Michaels) Clear Clear Urine Color Bright Yellow Dark Yellow Dark Yellow Uretheral (Michaels) Bright Yellow Yellow Urine Odor Normal # Bowel Movements 0 Exam: Hand mittens Head Head exam: Present atraumatic and normal inspection Eye Eye exam: Present normal appearance ENT ENT exam: Present mucous membranes moist, normal exam and normal external ear exam Additional comments: NG tube Nasal cannula in place Neck Neck exam: Present normal inspection Respiratory Respiratory exam: Present decreased breath sounds Cardiovascular Cardiovascular exam: Present irregular rhythm and tachycardia GI/Abdominal GI/Abdominal exam: Present diminished bowel sounds Additional comments: TENA drain Ostomy bag Ventral abdominal incision with wound vac in place Additional comments: Michaels catheter in place Back Exam Back exam: Present normal inspection Neurological Exam Neurological exam: Present alert and oriented X3 Skin Skin exam: Present intact and warm OBJ DATA Labs 02/24/23 05:33 02/24/23 07:26 Labs: Abnormal Lab Results 02/24/23 02/24/23 02/23/23 07:26 05:33 17:58 WBC 20.0 H RBC Hgb MCHC RDW 16.0 H Immature Gran % (Auto) 0.7 H Neut % (Auto) 79.2 H Lymph % (Auto) 7.6 L Lymph # (Auto) [place] # (Auto) 2.36 H Immature Gran # 0.14 H Absolute Neutrophils 15.84 H POC pH POC pCO2 POC pO2 POC HCO3 POC Total CO2 POC ABG Base Excess ABG Methemoglobin ABG Lactic Acid VBG pH VBG pCO2 VBG pO2 VBG HCO3 VBG Total CO2 VBG O2 Saturation VBG Base Excess VBG Lactic Acid 4.0 H* Hgb O2 Saturation Carboxyhemoglobin Potassium Carbon Dioxide 21 L BUN 27 H Glucose 153 H Calcium 8.3 L Phosphorus 2.2 L Direct Bilirubin 0.4 H Lactate Dehydrogenase 257 H Albumin 3.0 L 02/23/23 02/23/23 02/23/23 14:39 14:35 06:58 WBC RBC Hgb MCHC RDW Immature Gran % (Auto) Neut % (Auto) Lymph % (Auto) Lymph # (Auto) [place] # (Auto) Immature Gran # Absolute Neutrophils POC pH POC pCO2 47.9 H POC pO2 113 H POC HCO3 28.4 H POC Total CO2 30.0 H POC ABG Base Excess ABG Methemoglobin 0.2 L ABG Lactic Acid 3.4 H VBG pH 7.45 H VBG pCO2 29.5 L VBG pO2 94.5 H VBG HCO3 20.0 L VBG Total CO2 20.9 L VBG O2 Saturation 88.5 H VBG Base Excess -3 L VBG Lactic Acid 4.4 H* Hgb O2 Saturation 98.0 H Carboxyhemoglobin 9.0 H Potassium Carbon Dioxide BUN Glucose Calcium Phosphorus Direct Bilirubin Lactate Dehydrogenase Albumin 02/23/23 02/23/23 02/22/23 05:49 05:49 23:52 WBC 22.7 H RBC 4.47 L Hgb 12.9 L MCHC 30.8 L RDW 15.6 H Immature Gran % (Auto) Neut % (Auto) 86.1 H Lymph % (Auto) 3.5 L Lymph # (Auto) 0.80 L [place] # (Auto) 2.20 H Immature Gran # 0.11 H Absolute Neutrophils 19.55 H POC pH 7.34 L POC pCO2 60.7 H* POC pO2 153 H POC HCO3 32.4 H POC Total CO2 34.0 H POC ABG Base Excess 7.0 H ABG Methemoglobin ABG Lactic Acid 4.0 H* VBG pH VBG pCO2 VBG pO2 VBG HCO3 VBG Total CO2 VBG O2 Saturation VBG Base Excess VBG Lactic Acid Hgb O2 Saturation 99.0 H Carboxyhemoglobin Potassium 3.1 L Carbon Dioxide BUN Glucose 306 H Calcium 7.5 L Phosphorus Direct Bilirubin Lactate Dehydrogenase Albumin Meds: Medications Albuterol/Ipratropium (Ipratropium/Albuterol 3 Ml Ampul.Neb) 3 ml NEB Q4HP PRN PRN Reason: Shortness Of Breath Chlorhexidine Gluconate (Chlorhexidine Gluconate 1 Ml Oral.Yusra) 15 ml SWABMOUTH BID [facility] Last Admin: 02/24/23 08:42 Dose: Not Given Dextrose (Dextrose 50% 50 Ml Vial) 0 ml IV UD PRN PRN Reason: Per Sliding Scale Diagnostic Test (Pha) (Accu-Chek 1 Each Strip) 1 each FS Q6 [facility] Last Admin: 02/24/23 05:33 Dose: 1 each Glucose (Dextrose 31 Gm Oral.Susp) 15 gm PO PRN PRN PRN Reason: Hypoglycemia Hydromorphone HCl (Hydromorphone 0.5 Mg/0.5 Ml Syringe) 0.5 mg IV Q2HP PRN; Protocol PRN Reason: Per Pain Protocol Diltiazem HCl 125 mg/ Dextrose 125 mls @ 5 mls/hr IV Q12H [facility]; Protocol Last Admin: 02/23/23 22:48 Dose: Not Given Heparin Sodium/Sodium Chloride (Heparin/Ns) 500 mls @ 0 mls/hr IV .Q0M [facility]; Protocol Norepinephrine Bitartrate 8 mg (/ Sodium Chloride) 250 mls @ 18.75 mls/hr IV Q14H [facility]; Protocol Last Titration: 02/24/23 08:23 Dose: 28 mcg/min, 52.5 mls/hr Sodium Chloride (Sodium Chloride 0.9%) 250 mls @ 20 mls/hr IV .[id number] [facility] Last Admin: 02/24/23 01:54 Dose: Not Given Potassium Chloride/Dextrose/Sod Cl (Dextrose 5%-1/2ns W/20meq Kcl) 1,000 mls @ 125 mls/hr IV .Q8H [facility] Last Admin: 02/24/23 08:09 Dose: Not Given Piperacillin Sod/Tazobactam (Sod 3.375 gm/ Dextrose) 50 mls @ 100 mls/hr IV Q6H [facility]; Protocol Last Admin: 02/24/23 05:32 Dose: 100 mls/hr Acetaminophen (Ofirmev) 650 mg in 65 mls @ 130 mls/hr IV Q6HP PRN; Protocol PRN Reason: PAIN/FEVER > 101 Last Infusion: 02/24/23 08:25 Dose: Infused Insulin Human Lispro (Insulin Lispro 1 Unit/0.01 Ml Unit) 0 unit SQ Q6 [facility]; Protocol Last Admin: 02/24/23 05:33 Dose: Not Given Metoclopramide HCl (Metoclopramide 10 Mg/2 Ml Vial) 5 mg IV Q12 [facility] Last Admin: 02/24/23 08:42 Dose: 5 mg Metoprolol Tartrate (Metoprolol Tartrate 5 Mg/5 Ml Vial) 5 mg IV Q6H [facility] Last Admin: 02/24/23 08:41 Dose: 5 mg Metoprolol Tartrate (Metoprolol Tartrate 5 Mg/5 Ml Vial) 5 mg IV Q2HP PRN PRN Reason: For a heart rate >110 Last Admin: 02/24/23 05:32 Dose: 5 mg Ondansetron HCl (Ondansetron 4 Mg/2 Ml Vial) 4 mg IV Q6HP PRN PRN Reason: Nausea And Vomiting Last Admin: 02/24/23 04:31 Dose: 4 mg Pantoprazole Sodium (Pantoprazole 40 Mg Vial) 40 mg IV QAMAC [facility] Last Admin: 02/24/23 07:15 Dose: 40 mg Sodium Chloride (0.9 % Sodium Chloride 10 Ml Syringe) 10 ml IV Q8 [facility] Last Admin: 02/24/23 05:33 Dose: 10 ml ABG Interpretation ABG results: 02/23/23 14:39 ABG Methemoglobin 0.2 L VBG pH 7.45 H VBG pCO2 29.5 L VBG pO2 94.5 H VBG HCO3 20.0 L VBG Total CO2 20.9 L VBG O2 Saturation 88.5 H VBG Base Excess -3 L A/P Assessment and plan (1) Small bowel obstruction: Status: Acute (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 (6) Delirium: Status: Acute (7) Bacteremia: Status: Acute Narrative A/P Narrative: Assessment and Plans: 1. Small bowel obstruction: Extubated on 02/23 Still NPO with IV fluid D5 1/2NS KCL 20mEq @125cc/hr. Will check with Dr. Willis regarding timing to feed Incentive spirometry Zosyn for intraabdominal infection Ofirmev Dilaudid Continue to hold Eliquis in case if additional surgery is indicated Levophed drip titrate to goal MAP>=65mmHg Physical therapy evaluation and treatment 2. Permanent atrial fibrillation's with RVR: Lopressor 5mg IV q6hr scheduled Lopressor 5mg IV q2hr PRN HR>120bpm Continue to hold Eliquis in case if additional surgery is indicated 3. h/o BPH: Resume Flomax when NG tube is removed and patient is taking food and medication again 4. h/o COPD, stable: Continue bronchodilator from home regiment 5. Acute delirium: Treat underlying factors, see above Frequent reorientations during the day and protected sleep during the night 6. Bacteremia: DDx: skin contaminations Initial blood culture grew Leuconostoc species in one set one bottle Repeat blood cultures X2 on 02/22, no growth to date Zosyn for intraabdominal infection cbc w/ auto diff in the morning to trend WBC GI ppx: Protonix IV DVT ppx: SCDs Code status: DNR Prognosis: Guarded Disposition: Inpatient ICU Critical Care Time: 45min Time Spent With Patient Time: Total time spent is greater than 50% in coordination of care (as documented) at patient's floor/unit and/or counseling patient: Subsequent: Total time with patient: 35 - 49 minutes Critical Care Time: Yes Total Critical Care Time: 45 QUALITY Stroke Symptom Onset Unknown: No VTE Deep Vein Thrombosis/Pulmonary Embolism Present on Admission: No Restraints Restraint In Place: No
[2023-02-24] MEDS: HYDROmorphone 0.5 MG/0.5 ML SYRINGE IV PRN ×2 (09:37→11:39)
[2023-02-24] MEDS ORDERED: 0.9 % SODIUM CHLORIDE 10 ML SYRINGE IV PRN (10:13)
[2023-02-24] MEDS: DILTIAZEM 125 MG in DEXTROSE 5% IN WATER 100 ML IV SCH (11:32)
--- NOTE | 2023-02-24 11:41 | General Surgery Progress Note ---
SUBJECTIVE Subjective Patient information: Note initiated : 02/24/23 at 11:38 am Service Date, if different from initiated Date: [] Patient: Fei Rodrigues 87 y/o M admitted on 02/19/23 for abdominal pain/nausea. Chief Complaint: [SBO] Pain seems well controlled, continues to require some pressor support, no ostomy output since surgery, NGT output has been fairly scant Principal diagnosis: Small bowel obstruction Constitutional Vitals: Vital Signs Temp Pulse Resp BP Pulse Ox O2 Del Method O2 Flow Rate 98.7 F 58 L 31 H 88/66 95 Nasal Cannula 2 02/24/23 11:00 02/24/23 11:03 02/24/23 11:03 02/24/23 11:00 02/24/23 11:03 02/24/23 11:00 02/24/23 11:00 Period Temp Pulse Resp BP Sys/Lovell Pulse Ox O2 Del Method O2 Flow Rate Last 24 Hr 97.8 F-98.8 F 27-109 0-33 66-138/39-120 86-99 Nasal Cannula- Oxymask 2-5 Intake and Output 02/23/23 02/24/23 02/24/23 19:59 03:59 11:59 Intake Total 1509 1477 1452 Output Total 418 360 380 Balance 1091 1117 1072 Weight 132 lb 8 oz Intake & Output: Intake & Output 02/23/23 02/24/23 02/24/23 19:59 03:59 11:59 Intake Total 1509 1477 1452 Output Total 418 360 380 Balance 1091 1117 1072 Weight 132 lb 8 oz Intake: IV 1509 1477 1452 Dextrose 5%-1/2Ns W/20Meq KCl 1 1000 1000 965 ,000 ml @ 125 mls/hr IV .Q8H [facility] Rx#:[id number] Cardizem 125 mg In Dextrose 5% 19 12 in Water 100 ml @ 5 MG/HR 5 mls /hr IV Q12H [facility] Rx#:[id number] Levophed 8 mg In Sodium 325 350 372 Chloride 0.9% 242 ml @ 10 MCG/ MIN 18.75 mls/hr IV Q14H [facility] Rx #:[id number] Zosyn 3.375 gm In Dextrose 5% 100 50 50 in Water 50 ml @ 100 mls/hr IV Q6H [facility] Rx#:[id number] Oral 0 Tube Feeding 0 0 0 Output: Gastric Drainage 35 0 Right Nare 35 0 Drainage 35 20 Right Lower Abdomen TENA Drain 35 20 Drainage 35 5 Right Lower Abdomen TENA Drain 35 5 Urine Catheter Amount 313 360 235 Void Amount 120 Other: Urine Appearance Clear Clear Sediment Uretheral (Michaels) Clear Clear Urine Color Bright Yellow Dark Yellow Yellow Uretheral (Michaels) Bright Yellow Yellow Urine Odor Normal Normal # Bowel Movements 0 Exam: Able to converse, no distress Respiratory Additional comments: non labored, normal effort Cardiovascular Cardiovascular exam: Present RRR GI/Abdominal Additional comments: VAC in place, belly soft and non distended, minimally tender, JPD is scant serosang. Extremities Exam Additional comments: well perfused A/P Assessment and plan (1) Small bowel obstruction: Assessment and plan: POD #2 Ex Lap with lysis of adhesions for persistent Adhesion Related SBO Slow recovery continues as expected Continue NGT for now while awaiting return of bowel function, leave JPD as well Agree with initiation of TPN and PICC Line if needed for now given uncertainty about when sufficient oral intake might resume Increase activity as able - small clear sips, popsicle, etc ok with NGT in place while sitting up Status: Acute Time Spent With Patient Time: Total time spent is greater than 50% in coordination of care (as documented) at patient's floor/unit and/or counseling patient:
[2023-02-24] MEDS ORDERED: KETAMINE 50 MG/ML Syringe (ANEST) IV ONE (12:30)
[2023-02-24] MEDS ORDERED: PROPOFOL 200 MG/20 ML VIAL IV ONE (12:30)
[2023-02-24] MEDS ORDERED: DILTIAZEM 125 MG in DEXTROSE 5% IN WATER 100 ML IV PRN (13:45)
[2023-02-24] MEDS: 0.9 % SODIUM CHLORIDE 1,000 ML IV SCH (13:47)
--- NOTE | 2023-02-24 13:49 | XRay Report ---
CLINICAL INFORMATION: Central line placement COMPARISON: 02/23/2023 TECHNIQUE: Portable FINDINGS: Right IJ central line tip overlies the brachiocephalic IJ junction. No complication from line placement. Pacemaker leads in stable satisfactory position. Heart is now mildly enlarged mediastinum is unremarkable. NG tube remains in satisfactory position. Endotracheal tube is now out. Pulmonary vessels are mildly distended. There is moderate airspace disease throughout both lungs with right apical sparing. Small bilateral pleural effusions noted. IMPRESSION: Bilateral mid and lower lung infiltrates or aspiration worsening. Underlying COPD. Right IJ line in satisfactory position Small bilateral pleural effusions Interpreted and Authenticated by: Sai Casper 02/24/23
[2023-02-24] MEDS ORDERED: TPN PER PHARMACY IV SCH (14:45)
[2023-02-24] MEDS ORDERED: CALCIUM GLUCONATE IV SCH (15:00)
[2023-02-24] MEDS ORDERED: MAGNESIUM SULFATE IV SCH (15:00)
[2023-02-24] MEDS ORDERED: POTASSIUM CHLORIDE IV SCH (15:00)
[2023-02-24] MEDS ORDERED: [UNRECOGNIZED DRUG - OTHER] IV SCH (15:00)
[2023-02-24 16:56] LABS: Prealbumin 11.5 mg/dL (20.0-40.0)
[2023-02-24 17:27] LABS: ALT/SGPT 7 U/L (<40); AST/SGOT 13 U/L (<40); Albumin 2.7 gm/dL (3.2-5.2); Alkaline Phosphatase 82 U/L (39-117); Bilirubin,Direct 0.5 mg/dL (<0.3); Bilirubin,Total 1.1 mg/dL (0.1-1.0); Blood Urea Nitrogen 23 mg/dL (8-23); Calcium 7.6 mg/dL (8.6-10.4); Carbon Dioxide 24 mmol/L (22-30); Chloride 104 mmol/L (96-108); Globulin 2.8 gm/dL (2.2-3.7); Glomerular Filtration Rate 85; Glucose 132 mg/dL (70-105); Lactate Dehydrogenase 256 U/L (135-225); Phosphorous 1.4 mg/dL (2.5-4.5); Triglycerides 81 mg/dL (<150); Uric Acid 3.4 mg/dL (2.5-8.0)
[2023-02-25] MEDS: 0.9 % SODIUM CHLORIDE 1,000 ML IV SCH (02:21)
[2023-02-25] MEDS: METOPROLOL TARTRATE 5 MG/5 ML VIAL IV SCH ×4 (02:24→19:20)
[2023-02-25] MEDS: 0.9 % SODIUM CHLORIDE 10 ML SYRINGE IV SCH ×5 (05:59→22:50)
[2023-02-25] MEDS: INSULIN LISPRO 1 UNIT/0.01 ML UNIT SQ SCH ×3 (05:59→17:49)
[2023-02-25] MEDS: PIPERACILLIN SODIUM/TAZOBACTAM 3.375 GM in DEXTROSE 5% IN WATER 50 ML IV SCH ×3 (05:59→17:44)
[2023-02-25 06:48] LABS: Basophils # (Auto) 0.03 K/mcL (0.00-0.30); Basophils % (Auto) 0.2 % (0.0-2.0); Eosinophils % (Auto) 0.7 % (0.0-7.0); Hematocrit 39.3 % (40.1-51.0); Hemoglobin 12.2 g/dL (13.7-17.5); Lymphocytes # (Auto) 0.86 K/mcL (1.50-4.80); Lymphocytes % (Auto) 6.3 % (15.5-49.0); Mean Cell Volume 93.1 fL (80.0-100.0); Mean Platelet Volume 10.5 fL (8.8-12.5); Monocytes # (Auto) 1.36 K/mcL (0.10-0.90); Monocytes % (Auto) 9.9 % (1.0-12.0); Neutrophils % (Auto) 82.1 % (38.0-78.0); Platelet Count 170 K/mcL (140-440); RBC 4.22 M/mcL (4.63-6.08); Red Cell Distribution Width 15.7 % (11.5-14.5); WBC 13.7 K/mcL (4.5-11.0)
[2023-02-25] MEDS: NOREPINEPHRINE BITARTRATE 8 MG in 0.9 % SODIUM CHLORIDE 242 ML IV SCH ×3 (06:53→22:40)
[2023-02-25] MEDS: PANTOPRAZOLE 40 MG VIAL IV SCH (07:31)
[2023-02-25 07:53] LABS: ALT/SGPT 6 U/L (<40); AST/SGOT 15 U/L (<40); Albumin 2.8 gm/dL (3.2-5.2); Albumin/Globulin Ratio 0.9 (1.0-2.3); Alkaline Phosphatase 81 U/L (39-117); Bilirubin,Direct 0.4 mg/dL (<0.3); Bilirubin,Total 1.1 mg/dL (0.1-1.0); Blood Urea Nitrogen 20 mg/dL (8-23); Calcium 8.3 mg/dL (8.6-10.4); Carbon Dioxide 19 mmol/L (22-30); Chloride 108 mmol/L (96-108); Globulin 3.1 gm/dL (2.2-3.7); Glomerular Filtration Rate 85; Glucose 129 mg/dL (70-105); Lactate Dehydrogenase 284 U/L (135-225); Phosphorous 1.6 mg/dL (2.5-4.5); Triglycerides 96 mg/dL (<150); Uric Acid 2.4 mg/dL (2.5-8.0)
[2023-02-25] MEDS: ACETAMINOPHEN 650 MG/65 ML BAG IV PRN ×2 (08:12→15:45)
[2023-02-25] MEDS ORDERED: 0.9 % SODIUM CHLORIDE 1,000 ML IV SCH (08:52)
--- NOTE | 2023-02-25 08:58 | Internal Med Progress Note ---
SUBJECTIVE Subjective Patient information: Note initiated : 02/25/23 at 8:52 am Service Date, if different from initiated Date: [] Patient: Fei Rodrigues 87 y/o M admitted on 02/19/23 for abdominal pain/nausea. Chief Complaint: [] Principal diagnosis: Small bowel obstruction Interval history: Patient presents the ED with nausea vomiting and abdominal pain overnight. Patient's had small bowel obstruction in the past and stated that it felt very similar. 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 Follows with Dr. Mcfarland and Dr. Cohen. Patient denies chest pain or shortness of breath. Patient states that he had developing nausea vomiting and crampy abdominal pain started 1 to 2 days ago. Patient denies chest pain shortness of breath coughing. Also had an episode of A-fib RVR in the ED and was given diltiazem with improvement. Patient does have history of atrial fibrillation. Case is discussed with Dr. Willis and patient was thus admitted. Currently n.p.o. with NG tube in place. 02/20 Patient having bowel movements overnight. Patient did have a little bit of nausea vomiting. Abdominal pain improving. Heart rate in the 90s. 02/21: Patient was agitated and pulled his NG tube/ IV access overnight. Now the NG tube and IV access were replaced. Hand mittens on. There was no bowel movement overnight. Continue NG tube, n.p.o. status with IV fluid, and symptoms management. Continue Lopressor IV both scheduled and PRN for heart rate control. Continue to hold Eliquis for now because of the NG tube and because of the fact that surgery might eventually be indicated. Overall condition guarded. 02/22: Still does not have a bowel movement overnight. Patient is on 2L/min oxygen. Initial blood culture grew Leuconostoc species in one set one bottle. Dr. Willis is ordering a small bowel follow-through with contrast today. Continue NG tube, n.p.o. status with IV fluid, and symptoms management. Continue Lopressor IV both scheduled and PRN for heart rate control. Continue to hold Eliquis for now because of the NG tube and because of the fact that surgery might eventually be indicated. Overall condition guarded. 02/23: Dr. Willis took patient to the OR on evening of 02/22 for ex lap with lysis of adhesion. Patient transferred to ICU after returning back from the OR. Patient intubated and mechanically ventilated with the following settings: volume AC, RR 18, Vt 500, PEEP 5, FiO2 30%. Fentanyl and Propofol drip. Cardizem drip. Levophed drip. D5 1/2NS w/ KCL 20mEq @125cc/hr. NPO. No ostomy bag output. Zosyn to cover any intra-abdominal infection. Daily sedation holiday for extubation trial. Overall condition extremely guarded 02/24: Patient was extubated yesterday afternoon. Fentanyl and propofol drip were off. Cardizem drip was also off. Patient is currently still on Levophed drip. NG tube in place with only minimal output. Ostomy bag no output. He is on 4 L/min nasal cannula oxygen. Patient has adequate urine output overnight. Patient is complaining of moderate pain around his abdominal incision sites. Continue D5 half NS with KCl 20 mEq at 125 cc/min. We will check with Dr. Willis regarding timing for feeding either enterically or TPN. Continue pain c ontrol with Ultram and and Dilaudid IV, respectively for different severity of pain. Continue Zosyn for coverage of any intra-abdominal infection. Overall condition still extremely guarded. Stay in ICU. Physical therapy evaluation and treatment. 02/25: Status post centerline placement with initiation of TPN yesterday. Levophed drip still running. Fever Tmax 38.0 overnight. Please refer to the flow sheet for NG, TENA, ostomy, and urine output. Currently on 7L/min nasal cannula oxygen. Patient is complaining of mild to moderate diffused abdominal pain. Mild shortness of breath. Denies any subjective fever, chills, or diaphoresis this morning. Reduced rate of normal saline continuous infusions from 75 cc/h to 50 cc/h. Checks x-ray to rule out pulmonary edema. Continue supplemental oxygen therapy. Continue TPN for nutritional support. Over Mab and Dilaudid for postsurgical pain controlled. Continue Zosyn while monitoring culture results. Rest of the post surgical management as per primary team. Physical therapy evaluation and treatment. Overall condition extremely guarded. Stay in ICU. Constitutional Vitals: Vital Signs Temp Pulse Resp BP Pulse Ox O2 Del Method O2 Flow Rate 36.9 C 97 H 23 H 108/73 97 Nasal Cannula 3.5 02/25/23 08:12 02/25/23 06:56 02/25/23 06:56 02/25/23 06:50 02/25/23 06:56 02/25/23 06:08 02/25/23 06:08 Period Temp Pulse Resp BP Sys/Lovell Pulse Ox O2 Del Method O2 Flow Rate Last 24 Hr 36.6 C-38.0 C 27-118 13-33 77-110/56-92 84-97 Nasal Cannula- Oxymask 2-5 Intake and Output 02/24/23 02/25/23 02/25/23 19:59 03:59 11:59 Intake Total 789 1252 21 Output Total 533 347 400 Balance 256 905 -379 Weight 60.101 kg 60.01 kg Intake & Output: Intake & Output 02/24/23 02/25/23 02/25/23 19:59 03:59 11:59 Intake Total 789 1252 21 Output Total 533 347 400 Balance 256 905 -379 Weight 60.101 kg 60.01 kg Intake: IV 789 1212 11 Sodium Chloride 0.9% 1,000 ml @ 943 75 mls/hr IV .[id number] [facility] Rx#: [id number] Dextrose 5%-1/2Ns W/20Meq KCl 1 467 ,000 ml @ 125 mls/hr IV .Q8H [facility] Rx#:[id number] Cardizem 125 mg In Dextrose 5% 0 in Water 100 ml @ 5 MG/HR 5 mls /hr IV Q12H [facility] Rx#:[id number] Levophed 8 mg In Sodium 222 154 11 Chloride 0.9% 242 ml @ 10 MCG/ MIN 18.75 mls/hr IV Q8H [facility] Rx# :[id number] Zosyn 3.375 gm In Dextrose 5% 100 50 in Water 50 ml @ 100 mls/hr IV Q6H [facility] Rx#:[id number] Oral 40 10 Tube Feeding 0 0 0 Output: Gastric Drainage 100 20 Right Nare 100 20 Drainage 15 Right Lower Abdomen TENA Drain 15 Drainage 15 Right Lower Abdomen TENA Drain 15 Urine Catheter Amount 418 347 340 Stool 25 Other: Urine Appearance Clear Clear Clear Uretheral (Michaels) Clear Sediment Urine Color Light Natalya Dark Yellow Dark Yellow Uretheral (Michaels) Yellow Dark Yellow Urine Odor Normal Normal Stool Color Brown Stool Consistency Liquid Terri # Bowel Movements 1 Exam: Hand mittens Head Head exam: Present atraumatic and normal inspection Eye Eye exam: Present normal appearance ENT ENT exam: Present mucous membranes moist, normal exam and normal external ear exam Additional comments: NG tube in place Nasal cannula in place Neck Neck exam: Present normal inspection Additional comments: Central line in place Respiratory Respiratory exam: Present decreased breath sounds Cardiovascular Cardiovascular exam: Present irregular rhythm and tachycardia GI/Abdominal GI/Abdominal exam: Present normal bowel sounds Additional comments: TENA drain in place Ostomy bag in place Ventral abdominal incision with wound vac in place Additional comments: Michaels catheter in place Back Exam Back exam: Present normal inspection Neurological Exam Neurological exam: Present alert and oriented X3 Skin Skin exam: Present intact and warm OBJ DATA Labs 02/25/23 05:34 02/25/23 05:34 Labs: Abnormal Lab Results 02/25/23 02/25/23 02/24/23 05:34 05:34 14:03 WBC 13.7 H RBC 4.22 L Hgb 12.2 L Hct 39.3 L MCHC RDW 15.7 H Immature Gran % (Auto) 0.8 H Neut % (Auto) 82.1 H Lymph % (Auto) 6.3 L Lymph # (Auto) 0.86 L [place] # (Auto) 1.36 H Immature Gran # 0.11 H Absolute Neutrophils 11.22 H POC pH POC pCO2 POC pO2 POC HCO3 POC Total CO2 POC ABG Base Excess ABG Methemoglobin ABG Lactic Acid VBG pH VBG pCO2 VBG pO2 VBG HCO3 VBG Total CO2 VBG O2 Saturation VBG Base Excess VBG Lactic Acid Hgb O2 Saturation Carboxyhemoglobin Potassium Carbon Dioxide 19 L BUN Glucose 129 H 132 H Uric Acid 2.4 L Calcium 8.3 L 7.6 L Phosphorus 1.6 L 1.4 L Total Bilirubin 1.1 H 1.1 H Direct Bilirubin 0.4 H 0.5 H Lactate Dehydrogenase 284 H 256 H Total Protein 5.5 L Albumin 2.8 L 2.7 L Albumin/Globulin Ratio 0.9 L Prealbumin 11.5 L 02/24/23 02/24/23 02/23/23 07:26 05:33 17:58 WBC 20.0 H RBC Hgb Hct MCHC RDW 16.0 H Immature Gran % (Auto) 0.7 H Neut % (Auto) 79.2 H Lymph % (Auto) 7.6 L Lymph # (Auto) [place] # (Auto) 2.36 H Immature Gran # 0.14 H Absolute Neutrophils 15.84 H POC pH POC pCO2 POC pO2 POC HCO3 POC Total CO2 POC ABG Base Excess ABG Methemoglobin ABG Lactic Acid VBG pH VBG pCO2 VBG pO2 VBG HCO3 VBG Total CO2 VBG O2 Saturation VBG Base Excess VBG Lactic Acid 4.0 H* Hgb O2 Saturation Carboxyhemoglobin Potassium Carbon Dioxide 21 L BUN 27 H Glucose 153 H Uric Acid Calcium 8.3 L Phosphorus 2.2 L Total Bilirubin Direct Bilirubin 0.4 H Lactate Dehydrogenase 257 H Total Protein Albumin 3.0 L Albumin/Globulin Ratio Prealbumin 02/23/23 02/23/23 02/23/23 14:39 14:35 06:58 WBC RBC Hgb Hct MCHC RDW Immature Gran % (Auto) Neut % (Auto) Lymph % (Auto) Lymph # (Auto) [place] # (Auto) Immature Gran # Absolute Neutrophils POC pH POC pCO2 47.9 H POC pO2 113 H POC HCO3 28.4 H POC Total CO2 30.0 H POC ABG Base Excess ABG Methemoglobin 0.2 L ABG Lactic Acid 3.4 H VBG pH 7.45 H VBG pCO2 29.5 L VBG pO2 94.5 H VBG HCO3 20.0 L VBG Total CO2 20.9 L VBG O2 Saturation 88.5 H VBG Base Excess -3 L VBG Lactic Acid 4.4 H* Hgb O2 Saturation 98.0 H Carboxyhemoglobin 9.0 H Potassium Carbon Dioxide BUN Glucose Uric Acid Calcium Phosphorus Total Bilirubin Direct Bilirubin Lactate Dehydrogenase Total Protein Albumin Albumin/Globulin Ratio Prealbumin 02/23/23 02/23/23 02/22/23 05:49 05:49 23:52 WBC 22.7 H RBC 4.47 L Hgb 12.9 L Hct MCHC 30.8 L RDW 15.6 H Immature Gran % (Auto) Neut % (Auto) 86.1 H Lymph % (Auto) 3.5 L Lymph # (Auto) 0.80 L [place] # (Auto) 2.20 H Immature Gran # 0.11 H Absolute Neutrophils 19.55 H POC pH 7.34 L POC pCO2 60.7 H* POC pO2 153 H POC HCO3 32.4 H POC Total CO2 34.0 H POC ABG Base Excess 7.0 H ABG Methemoglobin ABG Lactic Acid 4.0 H* VBG pH VBG pCO2 VBG pO2 VBG HCO3 VBG Total CO2 VBG O2 Saturation VBG Base Excess VBG Lactic Acid Hgb O2 Saturation 99.0 H Carboxyhemoglobin Potassium 3.1 L Carbon Dioxide BUN Glucose 306 H Uric Acid Calcium 7.5 L Phosphorus Total Bilirubin Direct Bilirubin Lactate Dehydrogenase Total Protein Albumin Albumin/Globulin Ratio Prealbumin Meds: Medications Albuterol/Ipratropium (Ipratropium/Albuterol 3 Ml Ampul.Neb) 3 ml NEB Q4HP PRN PRN Reason: Shortness Of Breath Chlorhexidine Gluconate (Chlorhexidine Gluconate 1 Ml Oral.Yusra) 15 ml [place]AB[place] BID [facility] Last Admin: 02/24/23 20:38 Dose: 15 ml Dextrose (Dextrose 50% 50 Ml Vial) 0 ml IV UD PRN PRN Reason: Per Sliding Scale Diagnostic Test (Pha) (Accu-Chek 1 Each Strip) 1 each FS Q6 [facility] Last Admin: 02/25/23 05:59 Dose: 1 each Glucose (Dextrose 31 Gm Oral.Susp) 15 gm PO PRN PRN PRN Reason: Hypoglycemia Hydromorphone HCl (Hydromorphone 0.5 Mg/0.5 Ml Syringe) 0.5 mg IV Q2HP PRN; Protocol PRN Reason: Per Pain Protocol Last Admin: 02/24/23 11:39 Dose: 0.5 mg Heparin Sodium/Sodium Chloride (Heparin/Ns) 500 mls @ 0 mls/hr IV .Q0M [facility]; Protocol Sodium Chloride (Sodium Chloride 0.9%) 250 mls @ 20 mls/hr IV .[id number] [facility] Last Admin: 02/24/23 23:57 Dose: Not Given Piperacillin Sod/Tazobactam (Sod 3.375 gm/ Dextrose) 50 mls @ 100 mls/hr IV Q6H [facility]; Protocol Last Admin: 02/25/23 05:59 Dose: 100 mls/hr Acetaminophen (Ofirmev) 650 mg in 65 mls @ 130 mls/hr IV Q6HP PRN; Protocol PRN Reason: PAIN/FEVER > 101 Last Admin: 02/25/23 08:12 Dose: 200 mls/hr Diltiazem HCl 125 mg/ Dextrose 125 mls @ 5 mls/hr IV Q12HP PRN; Protocol PRN Reason: Tachyarrhythmias Calcium Gluconate 4.65 meq/Magnesium Sulfate 8.12 meq/Potassium Chloride 20 meq/Potassium Phosphate 20 meq/Multivitamins/Minerals 10 ml/Sodium Phosphate 30 mmol/Amino Acids 1,046.5455 mls @ 35 mls/hr IV Q24H [facility] Last Admin: 02/24/23 15:55 Dose: 35 mls/hr Fat Emulsion Intravenous 250 (ml/ Premix) 250 mls @ 25 mls/hr IV [id number] [facility] Norepinephrine Bitartrate 8 mg (/ Sodium Chloride) 250 mls @ 18.75 mls/hr IV Q8H [facility]; Protocol Last Titration: 02/25/23 07:14 Dose: 14 mcg/min, 26.25 mls/hr Sodium Chloride (Sodium Chloride 0.9%) 1,000 mls @ 50 mls/hr IV .Q20H [facility] Insulin Human Lispro (Insulin Lispro 1 Unit/0.01 Ml Unit) 0 unit SQ Q6 [facility]; Protocol Last Admin: 02/25/23 05:59 Dose: Not Given Metoclopramide HCl (Metoclopramide 10 Mg/2 Ml Vial) 5 mg IV Q12 [facility] Last Admin: 02/24/23 20:37 Dose: 5 mg Metoprolol Tartrate (Metoprolol Tartrate 5 Mg/5 Ml Vial) 5 mg IV Q6H [facility] Last Admin: 02/25/23 08:06 Dose: 5 mg Metoprolol Tartrate (Metoprolol Tartrate 5 Mg/5 Ml Vial) 5 mg IV Q2HP PRN PRN Reason: For a heart rate >110 Last Admin: 02/24/23 05:32 Dose: 5 mg Ondansetron HCl (Ondansetron 4 Mg/2 Ml Vial) 4 mg IV Q6HP PRN PRN Reason: Nausea And Vomiting Last Admin: 02/24/23 04:31 Dose: 4 mg Pantoprazole Sodium (Pantoprazole 40 Mg Vial) 40 mg IV QAMAC [facility] Last Admin: 02/25/23 07:31 Dose: 40 mg Sodium Chloride (0.9 % Sodium Chloride 10 Ml Syringe) 10 ml IV Q8 [facility] Last Admin: 02/25/23 05:59 Dose: 10 ml Sodium Chloride (0.9 % Sodium Chloride 10 Ml Syringe) 10 ml IV UD PRN PRN Reason: Wound Healing Sodium Chloride (0.9 % Sodium Chloride 10 Ml Syringe) 10 ml IV Q12 [facility] Last Admin: 02/24/23 20:37 Dose: 10 ml ABG Interpretation ABG results: 02/23/23 14:39 ABG Methemoglobin 0.2 L VBG pH 7.45 H VBG pCO2 29.5 L VBG pO2 94.5 H VBG HCO3 20.0 L VBG Total CO2 20.9 L VBG O2 Saturation 88.5 H VBG Base Excess -3 L A/P Assessment and plan (1) Small bowel obstruction: Status: Acute (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 (6) Delirium: Status: Acute (7) Bacteremia: Status: Acute Narrative A/P Narrative: Assessment and Plans: 1. Small bowel obstruction: Extubated on 02/23 NS@50cc/hr TPN via central line Incentive spirometry Zosyn for intraabdominal infection Ofirmev Dilaudid Continue to hold Eliquis in case if additional surgery is indicated Levophed drip titrate to goal MAP>=65mmHg Physical therapy evaluation and treatment 2. Permanent atrial fibrillation's with RVR: Lopressor 5mg IV q6hr scheduled Lopressor 5mg IV q2hr PRN HR>120bpm Continue to hold Eliquis in case if additional surgery is indicated 3. h/o BPH: Resume Flomax when NG tube is removed and patient is taking food and medication again 4. h/o COPD, stable: Continue bronchodilator from home regiment 5. Acute delirium: Treat underlying factors, see above Frequent reorientations during the day and protected sleep during the night 6. Bacteremia: DDx: skin contaminations Initial blood culture grew Leuconostoc species in one set one bottle Repeat blood cultures X2 on 02/22, no growth to date Zosyn for intraabdominal infection cbc w/ auto diff in the morning to trend WBC GI ppx: Protonix IV DVT ppx: SCDs Code status: DNR Prognosis: Extremely Guarded Disposition: Inpatient ICU Critical Care Time: 60min Time Spent With Patient Time: Total time spent is greater than 50% in coordination of care (as documented) at patient's floor/unit and/or counseling patient: Subsequent: Total time with patient: 50 - 65 Minutes Critical Care Time: Yes Total Critical Care Time: 60 QUALITY Stroke Symptom Onset Unknown: No VTE Deep Vein Thrombosis/Pulmonary Embolism Present on Admission: No Restraints Restraint In Place: No
[2023-02-25] MEDS: CHLORHEXIDINE GLUCONATE 1 ML ORAL.SOL SWABMOUTH SCH ×2 (09:31→22:48)
[2023-02-25] MEDS: METOCLOPRAMIDE 10 MG/2 ML VIAL IV SCH ×2 (09:31→22:48)
--- NOTE | 2023-02-25 09:49 | XRay Report ---
CLINICAL INFORMATION: Central line placement COMPARISON: 02/23/2023 TECHNIQUE: Portable FINDINGS: Right IJ central line tip overlies the SVC. Pacemaker leads in stable satisfactory position. Heart is now mildly enlarged mediastinum is unremarkable. NG tube remains in satisfactory position. Endotracheal tube is now out. Pulmonary vessels are mildly distended. Mixed interstitial/alveolar infiltrates in the mid and lower lung show slight improved aeration from yesterday. Small bilateral pleural effusions unchanged. There may be a small amount of free air under the right diaphragm. IMPRESSION: Bilateral mid and lower lung infiltrates slight improvement from yesterday. COPD. Potential free air under the right diaphragm. Suggest supine and lateral decubitus abdomen Interpreted and Authenticated by: Sai Casper 02/25/23
--- NOTE | 2023-02-25 09:58 | General Surgery Progress Note ---
SUBJECTIVE Subjective Patient information: Note initiated : 02/25/23 at 9:55 am Service Date, if different from initiated Date: [] Patient: Fei Rodrigues 87 y/o M admitted on 02/19/23 for abdominal pain/nausea. Chief Complaint: [] Looks better today, more awake and conversant Principal diagnosis: Small bowel obstruction Constitutional Vitals: Vital Signs Temp Pulse Resp BP Pulse Ox O2 Del Method O2 Flow Rate 98.5 F 90 0 L 101/78 85 L Nasal Cannula 3.5 02/25/23 08:12 02/25/23 07:31 02/25/23 08:57 02/25/23 08:30 02/25/23 07:31 02/25/23 06:08 02/25/23 06:08 Period Temp Pulse Resp BP Sys/Lovell Pulse Ox O2 Del Method O2 Flow Rate Last 24 Hr 97.8 F-100.4 F 27-118 0-32 77-111/56-92 84-97 Nasal Cannula-Oxymask 2-5 Intake and Output 02/24/23 02/25/23 02/25/23 19:59 03:59 11:59 Intake Total 789 1252 679 Output Total 533 347 523 Balance 256 905 156 Weight 132 lb 8 oz 132 lb 4.8 oz Intake & Output: Intake & Output 02/24/23 02/25/23 02/25/23 19:59 03:59 11:59 Intake Total 789 1252 679 Output Total 533 347 523 Balance 256 905 156 Weight 132 lb 8 oz 132 lb 4.8 oz Intake: IV 789 1212 669 Sodium Chloride 0.9% 1,000 ml @ 943 499 75 mls/hr IV .[id number] [facility] Rx#: [id number] Dextrose 5%-1/2Ns W/20Meq KCl 1 467 ,000 ml @ 125 mls/hr IV .Q8H [facility] Rx#:[id number] Cardizem 125 mg In Dextrose 5% 0 in Water 100 ml @ 5 MG/HR 5 mls /hr IV Q12H [facility] Rx#:[id number] Levophed 8 mg In Sodium 222 154 55 Chloride 0.9% 242 ml @ 10 MCG/ MIN 18.75 mls/hr IV Q8H [facility] Rx# :[id number] Zosyn 3.375 gm In Dextrose 5% 100 50 50 in Water 50 ml @ 100 mls/hr IV Q6H [facility] Rx#:[id number] Oral 40 10 Tube Feeding 0 0 0 Output: Gastric Drainage 100 70 Right Nare 100 70 Drainage 15 Right Lower Abdomen TENA Drain 15 Drainage 15 Right Lower Abdomen TENA Drain 15 Urine Catheter Amount 418 347 413 Stool 25 Other: Urine Appearance Clear Clear Clear Uretheral (Michaels) Clear Sediment Urine Color Light Natalya Dark Yellow Dark Yellow Uretheral (Michaels) Yellow Dark Yellow Urine Odor Normal Normal Stool Color Brown Stool Consistency Liquid Terri # Bowel Movements 1 Exam: non toxic, conversant, fully alert GI/Abdominal Additional comments: belly is soft, flat and non tender, NGT is functional, drain scant serosang, incisional VAC in place liquid stool now present in ostomy A/P Assessment and plan (1) Small bowel obstruction: Status: Acute Plan POD #3 Ex Lap, Lysis of Adhesions for persistent SBO Doing Well with returning bowel function, WBC trending down Clamp NGT OK for Clear Sips with aspiration precautions Continue to increase activity Time Spent With Patient Time: Total time spent is greater than 50% in coordination of care (as documented) at patient's floor/unit and/or counseling patient:
[2023-02-25] MEDS: HYDROmorphone 0.5 MG/0.5 ML SYRINGE IV PRN (11:10)
[2023-02-25] MEDS: LIDOCAINE PATCH TOPICAL SCH (11:29)
[2023-02-25] MEDS: 0.9 % SODIUM CHLORIDE 250 ML IV SCH (14:18)
[2023-02-25] MEDS ORDERED: MAGNESIUM SULFATE IV SCH (15:00)
[2023-02-25] MEDS ORDERED: POTASSIUM PHOSPHATE IV SCH (15:00)
[2023-02-25] MEDS ORDERED: [UNRECOGNIZED DRUG - OTHER] IV SCH (15:00)
[2023-02-25] MEDS ORDERED: CALCIUM GLUCONATE IV SCH (15:00)
[2023-02-25] MEDS ORDERED: FAT EMULSION 20% 250 ML in PREMIX 1 BAG IV SCH (16:00)
[2023-02-25] MEDS ORDERED: DEXTROSE 5%-NS 1,000 ML IV SCH (18:45)
[2023-02-26] MEDS: PIPERACILLIN SODIUM/TAZOBACTAM 3.375 GM in DEXTROSE 5% IN WATER 50 ML IV SCH ×4 (00:10→18:13)
[2023-02-26] MEDS: METOPROLOL TARTRATE 5 MG/5 ML VIAL IV PRN ×2 (00:50→09:19)
[2023-02-26] MEDS: INSULIN LISPRO 1 UNIT/0.01 ML UNIT SQ SCH ×4 (00:53→18:13)
[2023-02-26] MEDS: METOPROLOL TARTRATE 5 MG/5 ML VIAL IV SCH ×2 (02:31→08:11)
[2023-02-26] MEDS: 0.9 % SODIUM CHLORIDE 250 ML IV SCH ×2 (02:45→13:33)
[2023-02-26] MEDS: HYDROmorphone 0.5 MG/0.5 ML SYRINGE IV PRN (03:49)
[2023-02-26] MEDS: 0.9 % SODIUM CHLORIDE 10 ML SYRINGE IV SCH ×5 (06:38→22:45)
[2023-02-26 06:58] LABS: ALT/SGPT 7 U/L (<40); AST/SGOT 13 U/L (<40); Albumin 2.6 gm/dL (3.2-5.2); Albumin/Globulin Ratio 0.8 (1.0-2.3); Alkaline Phosphatase 116 U/L (39-117); Bilirubin,Direct 0.7 mg/dL (<0.3); Bilirubin,Total 1.3 mg/dL (0.1-1.0); Blood Urea Nitrogen 18 mg/dL (8-23); Calcium 8.1 mg/dL (8.6-10.4); Carbon Dioxide 24 mmol/L (22-30); Chloride 107 mmol/L (96-108); Globulin 3.2 gm/dL (2.2-3.7); Glomerular Filtration Rate 90; Glucose 105 mg/dL (70-105); Lactate Dehydrogenase 249 U/L (135-225); Phosphorous 1.7 mg/dL (2.5-4.5); Triglycerides 77 mg/dL (<150); Uric Acid 1.9 mg/dL (2.5-8.0)
[2023-02-26] MEDS: NOREPINEPHRINE BITARTRATE 8 MG in 0.9 % SODIUM CHLORIDE 242 ML IV SCH ×4 (07:12→22:44)
[2023-02-26] MEDS: METOCLOPRAMIDE 10 MG/2 ML VIAL IV SCH ×2 (08:10→20:19)
[2023-02-26] MEDS: PANTOPRAZOLE 40 MG VIAL IV SCH (08:10)
--- NOTE | 2023-02-26 08:11 | Internal Med Progress Note ---
SUBJECTIVE Subjective Patient information: Note initiated : 02/26/23 at 8:06 am Service Date, if different from initiated Date: [] Patient: Fei Rodrigues 87 y/o M admitted on 02/19/23 for abdominal pain/nausea. Chief Complaint: [] Principal diagnosis: Small bowel obstruction Interval history: Patient presents the ED with nausea vomiting and abdominal pain overnight. Patient's had small bowel obstruction in the past and stated that it felt very similar. 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 Follows with Dr. Mcfarland and Dr. Cohen. Patient denies chest pain or shortness of breath. Patient states that he had developing nausea vomiting and crampy abdominal pain started 1 to 2 days ago. Patient denies chest pain shortness of breath coughing. Also had an episode of A-fib RVR in the ED and was given diltiazem with improvement. Patient does have history of atrial fibrillation. Case is discussed with Dr. Willis and patient was thus admitted. Currently n.p.o. with NG tube in place. 02/20 Patient having bowel movements overnight. Patient did have a little bit of nausea vomiting. Abdominal pain improving. Heart rate in the 90s. 02/21: Patient was agitated and pulled his NG tube/ IV access overnight. Now the NG tube and IV access were replaced. Hand mittens on. There was no bowel movement overnight. Continue NG tube, n.p.o. status with IV fluid, and symptoms management. Continue Lopressor IV both scheduled and PRN for heart rate control. Continue to hold Eliquis for now because of the NG tube and because of the fact that surgery might eventually be indicated. Overall condition guarded. 02/22: Still does not have a bowel movement overnight. Patient is on 2L/min oxygen. Initial blood culture grew Leuconostoc species in one set one bottle. Dr. Willis is ordering a small bowel follow-through with contrast today. Continue NG tube, n.p.o. status with IV fluid, and symptoms management. Continue Lopressor IV both scheduled and PRN for heart rate control. Continue to hold Eliquis for now because of the NG tube and because of the fact that surgery might eventually be indicated. Overall condition guarded. 02/23: Dr. Willis took patient to the OR on evening of 02/22 for ex lap with lysis of adhesion. Patient transferred to ICU after returning back from the OR. Patient intubated and mechanically ventilated with the following settings: volume AC, RR 18, Vt 500, PEEP 5, FiO2 30%. Fentanyl and Propofol drip. Cardizem drip. Levophed drip. D5 1/2NS w/ KCL 20mEq @125cc/hr. NPO. No ostomy bag output. Zosyn to cover any intra-abdominal infection. Daily sedation holiday for extubation trial. Overall condition extremely guarded 02/24: Patient was extubated yesterday afternoon. Fentanyl and propofol drip were off. Cardizem drip was also off. Patient is currently still on Levophed drip. NG tube in place with only minimal output. Ostomy bag no output. He is on 4 L/min nasal cannula oxygen. Patient has adequate urine output overnight. Patient is complaining of moderate pain around his abdominal incision sites. Continue D5 half NS with KCl 20 mEq at 125 cc/min. We will check with Dr. Willis regarding timing for feeding either enterically or TPN. Continue pain c ontrol with Ultram and and Dilaudid IV, respectively for different severity of pain. Continue Zosyn for coverage of any intra-abdominal infection. Overall condition still extremely guarded. Stay in ICU. Physical therapy evaluation and treatment. 02/25: Status post centerline placement with initiation of TPN yesterday. Levophed drip still running. Fever Tmax 38.0 overnight. Please refer to the flow sheet for NG, TENA, ostomy, and urine output. Currently on 7L/min nasal cannula oxygen. Patient is complaining of mild to moderate diffused abdominal pain. Mild shortness of breath. Denies any subjective fever, chills, or diaphoresis this morning. Reduced rate of normal saline continuous infusions from 75 cc/h to 50 cc/h. Checks x-ray to rule out pulmonary edema. Continue supplemental oxygen therapy. Continue TPN for nutritional support. Over Mab and Dilaudid for postsurgical pain controlled. Continue Zosyn while monitoring culture results. Rest of the post surgical management as per primary team. Physical therapy evaluation and treatment. Overall condition extremely guarded. Stay in ICU. 02/26: Patient ripped off his central line last evening. Dr. Mcfarland d/tanvir NG tube last ni ght. He is currently on Levophed drip 4mcg/min. Ostomy bag output went to the 5 cc overnight shift. Good urine output. He is on 3 L/min nasal cannula oxygen. Patient denies no pain in his abdomen. He denies any nausea or vomiting. He denies any shortness of breath. He is feeling good right now. He is tolerating sips with ice chips. We will check with general surgeon before advancing his diet. Transitions from IV Lopressor to oral metoprolol succinate for heart rate controlled. Continue to hold Eliquis until cleared by the surgeons. Continue Zosyn to cover any intra-abdominal infections. Continue to offer narcotics with Dilaudid and as needed for abdominal pain control. Overall condition is guarded. Stay in ICU. Constitutional Vitals: Vital Signs Temp Pulse Resp BP Pulse Ox O2 Del Method O2 Flow Rate 36.9 C 93 H 14 105/80 99 Nasal Cannula 3 02/26/23 07:35 02/26/23 07:38 02/26/23 07:38 02/26/23 07:30 02/26/23 07:38 02/26/23 07:38 02/26/23 07:38 Period Temp Pulse Resp BP Sys/[place] Pulse Ox O2 Del Method O2 Flow Rate Last 24 Hr 36.2 C-37.6 C 25-118 0-29 78-148/51-131 88-100 Nasal Cannula- Nasal Cannula, Oxymask 3-8 Intake and Output 02/25/23 02/26/23 02/26/23 19:59 03:59 11:59 Intake Total 2066.5455 80 118 Output Total 516 245 357 Balance 1551.5455 -165 -239 Weight 57.289 kg Intake & Output: Intake & Output 02/25/23 02/26/23 02/26/23 19:59 03:59 11:59 Intake Total 2066.5455 80 118 Output Total 516 245 357 Balance 1551.5455 -165 -239 Weight 57.289 kg Intake: IV 5455 80 118 Sodium Chloride 0.9% 1,000 ml @ 466 75 mls/hr IV .[id number] [facility] Rx#: [id number] Calcium Gluconate 4.65 Meq 1046.5455 Magnesium Sulfate 8.12 Meq Potassium Chloride 20 Meq Potassium Phosphate 20 Meq Infuvite Adult 10 ml Sodium Phosphate 30 Mmol In Clinimix 5 %-20% Solution 1,000 ml @ 35 mls/hr IV Q24H [facility] Rx#: [id number] Calcium Gluconate 10 Meq 167 Magnesium Sulfate 16.24 Meq Potassium Phosphate 40 Meq Infuvite Adult 10 ml Sodium Phosphate 60 Mmol Sodium Acetate 20 Meq In Clinimix 5%- 20% Solution 2,000 ml @ 70 mls/ hr IV Q24H [facility] Rx#:[id number] Intralipid 20% 250 ml In Premix 58 1 Bag @ 25 mls/hr IV MoWeFr@ 1600 [facility] Rx#:[id number] Levophed 8 mg In Sodium 165 30 68 Chloride 0.9% 242 ml @ 10 MCG/ MIN 18.75 mls/hr IV Q8H [facility] Rx# :[id number] Zosyn 3.375 gm In Dextrose 5% 100 50 50 in Water 50 ml @ 100 mls/hr IV Q6H [facility] Rx#:[id number] Tube Feeding 0 Output: Drainage 70 85 Right Lower Abdomen TENA Drain 70 85 Urine Catheter Amount 318 245 147 Void Amount 28 Stool 100 125 Other: Urine Appearance Clear Clear Clear Sediment Urine Color Yellow Yellow Dark Yellow [place] Urine Odor Normal Stool Color Brown Green Stool Consistency Liquid Liquid Loose Exam: Hand mittens Head Head exam: Present atraumatic and normal inspection Eye Eye exam: Present normal appearance ENT ENT exam: Present mucous membranes moist, normal exam and normal external ear exam Additional comments: Nasal cannula in place. Neck Neck exam: Present normal inspection Respiratory Respiratory exam: Present decreased breath sounds Cardiovascular Cardiovascular exam: Present irregular rhythm GI/Abdominal GI/Abdominal exam: Present hypoactive bowel sounds Additional comments: Ventral abdominal surgical incision with wound vac in place TENA drain in place Ostomy bag in place Additional comments: Michaels catheter in place Back Exam Back exam: Present normal inspection Neurological Exam Neurological exam: Present alert and oriented X3 Skin Skin exam: Present intact and warm OBJ DATA Labs 02/25/23 05:34 02/26/23 05:17 Labs: Abnormal Lab Results 02/26/23 02/25/23 02/25/23 05:17 05:34 05:34 WBC 13.7 H RBC 4.22 L Hgb 12.2 L Hct 39.3 L RDW 15.7 H Immature Gran % (Auto) 0.8 H Neut % (Auto) 82.1 H Lymph % (Auto) 6.3 L Lymph # (Auto) 0.86 L [place] # (Auto) 1.36 H Immature Gran # 0.11 H Absolute Neutrophils 11.22 H ABG Methemoglobin VBG pH VBG pCO2 VBG pO2 VBG HCO3 VBG Total CO2 VBG O2 Saturation VBG Base Excess VBG Lactic Acid Carboxyhemoglobin Potassium 3.1 L Carbon Dioxide 19 L Anion Gap 7.0 L BUN Creatinine 0.6 L Glucose 129 H Uric Acid 1.9 L 2.4 L Calcium 8.1 L 8.3 L Phosphorus 1.7 L 1.6 L Total Bilirubin 1.3 H 1.1 H Direct Bilirubin 0.7 H 0.4 H GGT 66 H Lactate Dehydrogenase 249 H 284 H Total Protein 5.8 L Albumin 2.6 L 2.8 L Albumin/Globulin Ratio 0.8 L 0.9 L Prealbumin 02/24/23 02/24/23 02/24/23 14:03 07:26 05:33 WBC 20.0 H RBC Hgb Hct RDW 16.0 H Immature Gran % (Auto) 0.7 H Neut % (Auto) 79.2 H Lymph % (Auto) 7.6 L Lymph # (Auto) [place] # (Auto) 2.36 H Immature Gran # 0.14 H Absolute Neutrophils 15.84 H ABG Methemoglobin VBG pH VBG pCO2 VBG pO2 VBG HCO3 VBG Total CO2 VBG O2 Saturation VBG Base Excess VBG Lactic Acid Carboxyhemoglobin Potassium Carbon Dioxide 21 L Anion Gap BUN 27 H Creatinine Glucose 132 H 153 H Uric Acid Calcium 7.6 L 8.3 L Phosphorus 1.4 L 2.2 L Total Bilirubin 1.1 H Direct Bilirubin 0.5 H 0.4 H GGT Lactate Dehydrogenase 256 H 257 H Total Protein 5.5 L Albumin 2.7 L 3.0 L Albumin/Globulin Ratio Prealbumin 11.5 L 02/23/23 02/23/23 02/23/23 17:58 14:39 14:35 WBC RBC Hgb Hct RDW Immature Gran % (Auto) Neut % (Auto) Lymph % (Auto) Lymph # (Auto) [place] # (Auto) Immature Gran # Absolute Neutrophils ABG Methemoglobin 0.2 L VBG pH 7.45 H VBG pCO2 29.5 L VBG pO2 94.5 H VBG HCO3 20.0 L VBG Total CO2 20.9 L VBG O2 Saturation 88.5 H VBG Base Excess -3 L VBG Lactic Acid 4.0 H* 4.4 H* Carboxyhemoglobin 9.0 H Potassium Carbon Dioxide Anion Gap BUN Creatinine Glucose Uric Acid Calcium Phosphorus Total Bilirubin Direct Bilirubin GGT Lactate Dehydrogenase Total Protein Albumin Albumin/Globulin Ratio Prealbumin Meds: Medications Albuterol/Ipratropium (Ipratropium/Albuterol 3 Ml Ampul.Neb) 3 ml NEB Q4HP PRN PRN Reason: Shortness Of Breath Chlorhexidine Gluconate (Chlorhexidine Gluconate 1 Ml Oral.Yusra) 15 ml SWABMOUTH BID [facility] Last Admin: 02/25/23 22:48 Dose: 15 ml Dextrose (Dextrose 50% 50 Ml Vial) 0 ml IV UD PRN PRN Reason: Per Sliding Scale Diagnostic Test (Pha) (Accu-Chek 1 Each Strip) 1 each FS Q6 [facility] Last Admin: 02/26/23 06:35 Dose: 1 each Glucose (Dextrose 31 Gm Oral.Susp) 15 gm PO PRN PRN PRN Reason: Hypoglycemia Hydromorphone HCl (Hydromorphone 0.5 Mg/0.5 Ml Syringe) 0.5 mg IV Q2HP PRN; Protocol PRN Reason: Per Pain Protocol Last Admin: 02/26/23 03:49 Dose: 0.5 mg Heparin Sodium/Sodium Chloride (Heparin/Ns) 500 mls @ 0 mls/hr IV .Q0M [facility]; Protocol Sodium Chloride (Sodium Chloride 0.9%) 250 mls @ 20 mls/hr IV .[id number] [facility] Last Admin: 02/26/23 02:45 Dose: Not Given Piperacillin Sod/Tazobactam (Sod 3.375 gm/ Dextrose) 50 mls @ 100 mls/hr IV Q6H [facility]; Protocol Last Infusion: 02/26/23 07:12 Dose: Infused Acetaminophen (Ofirmev) 650 mg in 65 mls @ 130 mls/hr IV Q6HP PRN; Protocol PRN Reason: PAIN/FEVER > 101 Last Infusion: 02/25/23 16:25 Dose: Infused Fat Emulsion Intravenous 250 (ml/ Premix) 250 mls @ 25 mls/hr IV MoWeFr@1600 [facility] Last Infusion: 02/25/23 18:19 Dose: 0 mls/hr Norepinephrine Bitartrate 8 mg (/ Sodium Chloride) 250 mls @ 18.75 mls/hr IV Q8H [facility]; Protocol Last Admin: 02/26/23 07:12 Dose: Not Given Calcium Gluconate 10 meq/Magnesium Sulfate 16.24 meq/Potassium Phosphate 40 meq/Multivitamins/Minerals 10 ml/Sodium Phosphate 60 mmol/Sodium Acetate 20 meq/ Amino Acids 2,074.5962 mls @ 70 mls/hr IV Q24H [facility] Last Infusion: 02/25/23 18:19 Dose: 0 mls/hr Dextrose/Sodium Chloride (Dextrose 5%-Ns Iv Solution) 1,000 mls @ 50 mls/hr IV .Q20H [facility] Last Admin: 02/25/23 19:23 Dose: 50 mls/hr Insulin Human Lispro (Insulin Lispro 1 Unit/0.01 Ml Unit) 0 unit SQ Q6 [facility]; Protocol Last Admin: 02/26/23 06:36 Dose: Not Given Lidocaine (Lidocaine Patch) 1 patch TOPICAL DAILY@1000 [facility] Last Admin: 02/25/23 11:29 Dose: 1 patch Metoclopramide HCl (Metoclopramide 10 Mg/2 Ml Vial) 5 mg IV Q12 [facility] Last Admin: 02/25/23 22:48 Dose: 5 mg Metoprolol Tartrate (Metoprolol Tartrate 5 Mg/5 Ml Vial) 5 mg IV Q2HP PRN PRN Reason: For a heart rate >110 Last Admin: 02/26/23 00:50 Dose: 5 mg Ondansetron HCl (Ondansetron 4 Mg/2 Ml Vial) 4 mg IV Q6HP PRN PRN Reason: Nausea And Vomiting Last Admin: 02/24/23 04:31 Dose: 4 mg Pantoprazole Sodium (Pantoprazole 40 Mg Vial) 40 mg IV QAMAC [facility] Last Admin: 02/25/23 07:31 Dose: 40 mg Sodium Chloride (0.9 % Sodium Chloride 10 Ml Syringe) 10 ml IV Q8 [facility] Last Admin: 02/26/23 06:38 Dose: Not Given Sodium Chloride (0.9 % Sodium Chloride 10 Ml Syringe) 10 ml IV UD PRN PRN Reason: Wound Healing Sodium Chloride (0.9 % Sodium Chloride 10 Ml Syringe) 10 ml IV Q12 [facility] Last Admin: 02/25/23 22:49 Dose: Not Given ABG Interpretation ABG results: 02/23/23 14:39 ABG Methemoglobin 0.2 L VBG pH 7.45 H VBG pCO2 29.5 L VBG pO2 94.5 H VBG HCO3 20.0 L VBG Total CO2 20.9 L VBG O2 Saturation 88.5 H VBG Base Excess -3 L A/P Assessment and plan (1) Small bowel obstruction: Status: Acute (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 (6) Delirium: Status: Acute (7) Bacteremia: Status: Acute Narrative A/P Narrative: Assessment and Plans: 1. Small bowel obstruction: Extubated on 02/23 Central line pulled, TPN held Incentive spirometry Zosyn for intraabdominal infection Ofirmev Dilaudid Continue to hold Eliquis in case if additional surgery is indicated Levophed drip titrate to goal MAP>=65mmHg Physical therapy evaluation and treatment 2. Permanent atrial fibrillation's with RVR: Metoprolol succinate 50mg PO daily Lopressor 5mg IV q2hr PRN HR>120bpm Continue to hold Eliquis in case if additional surgery is indicated 3. h/o BPH: Resume Flomax 4. h/o COPD, stable: Continue bronchodilator from home regiment 5. Acute delirium: Treat underlying factors, see above Frequent reorientations during the day and protected sleep during the night 6. Bacteremia: DDx: skin contaminations Initial blood culture grew Leuconostoc species in one set one bottle Repeat blood cultures X2 on 02/22, no growth to date Zosyn for intraabdominal infection cbc w/ auto diff in the morning to trend WBC GI ppx: Protonix IV DVT ppx: SCDs Code status: DNR Prognosis: Guarded Disposition: Inpatient ICU Critical Care Time: 60min Time Spent With Patient Time: Total time spent is greater than 50% in coordination of care (as documented) at patient's floor/unit and/or counseling patient: Subsequent: Total time with patient: 50 - 65 Minutes Critical Care Time: Yes Total Critical Care Time: 60 QUALITY Stroke Symptom Onset Unknown: No VTE Deep Vein Thrombosis/Pulmonary Embolism Present on Admission: No Restraints Restraint In Place: No
[2023-02-26] MEDS: TAMSULOSIN 0.4 MG CAPSULE PO SCH (08:26)
[2023-02-26] MEDS: ATORVASTATIN 20 MG TABLET PO SCH (08:26)
[2023-02-26] MEDS: CHLORHEXIDINE GLUCONATE 1 ML ORAL.SOL SWABMOUTH SCH ×2 (08:27→20:22)
[2023-02-26] MEDS: DEXTROSE 5%-1/2NS W/20MEQ KCL 1,000 ML IV SCH (08:27)
[2023-02-26] MEDS: ACETAMINOPHEN 650 MG/65 ML BAG IV PRN ×2 (08:59→22:45)
[2023-02-26] MEDS ORDERED: METOPROLOL SUCCINATE 50 MG TAB.XL.24H PO SCH (09:00)
[2023-02-26] MEDS ORDERED: LIDOCAINE PATCH TOPICAL SCH (10:00)
[2023-02-26] MEDS: LIDOCAINE PATCH TOPICAL SCH (11:16)
--- NOTE | 2023-02-26 13:19 | Internal Med Progress Note ---
SUBJECTIVE Subjective Patient information: Note initiated : 02/26/23 at 1:12 pm Service Date, if different from initiated Date: [] Patient: Fei Rodrigues 87 y/o M admitted on 02/19/23 for abdominal pain/nausea. Chief Complaint: [] Principal diagnosis: Small bowel obstruction Interval history: HPI: Patient presents the ED with nausea vomiting and abdominal pain overnight. Patient's had small bowel obstruction in the past and stated that it felt very similar. 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 Follows with Dr. Mcfarland and Dr. Cohen. Patient denies chest pain or shortness of breath. Patient states that he had developing nausea vomiting and crampy abdominal pain started 1 to 2 days ago. Patient denies chest pain shortness of breath coughing. Also had an episode of A-fib RVR in the ED and was given diltiazem with improvement. Patient does have history of atrial fibrillation. Case is discussed with Dr. Willis and patient was thus admitted. Currently n.p.o. with NG tube in place. 02/20 Patient having bowel movements overnight. Patient did have a little bit of nausea vomiting. Abdominal pain improving. Heart rate in the 90s. : Patient was agitated and pulled his NG tube/ IV access overnight. Now the NG tube and IV access were replaced. Hand mittens on. There was no bowel movement overnight. Continue NG tube, n.p.o. status with IV fluid, and symptoms management. Continue Lopressor IV both scheduled and PRN for heart rate control. Continue to hold Eliquis for now because of the NG tube and because of the fact that surgery might eventually be indicated. Overall condition guarded. 02/22: Still does not have a bowel movement overnight. Patient is on 2L/min oxygen. Initial blood culture grew Leuconostoc species in one set one bottle. Dr. Willis is ordering a small bowel follow-through with contrast today. Continue NG tube, n.p.o. status with IV fluid, and symptoms management. Continue Lopressor IV both scheduled and PRN for heart rate control. Continue to hold Eliquis for now because of the NG tube and because of the fact that surgery might eventually be indicated. Overall condition guarded. 02/23: Dr. Willis took patient to the OR on evening of 02/22 for ex lap with lysis of adhesion. Patient transferred to ICU after returning back from the OR. Patient intubated and mechanically ventilated with the following settings: volume AC, RR 18, Vt 500, PEEP 5, FiO2 30%. Fentanyl and Propofol drip. Cardizem drip. Levophed drip. D5 1/2NS w/ KCL 20mEq @125cc/hr. NPO. No ostomy bag output. Zosyn to cover any intra-abdominal infection. Daily sedation holiday for extubation trial. Overall condition extremely guarded 02/24: Patient was extubated yesterday afternoon. Fentanyl and propofol drip were off. Cardizem drip was also off. Patient is currently still on Levophed drip. NG tube in place with only minimal output. Ostomy bag no output. He is on 4 L/min nasal cannula oxygen. Patient has adequate urine output overnight. Patient is complaining of moderate pain around his abdominal incision sites. Continue D5 half NS with KCl 20 mEq at 125 cc/min. We will check with Dr. Willis regarding timing for feeding either enterically or TPN. Continue pain c ontrol with Ultram and and Dilaudid IV, respectively for different severity of pain. Continue Zosyn for coverage of any intra-abdominal infection. Overall condition still extremely guarded. Stay in ICU. Physical therapy evaluation and treatment. 02/25: Status post centerline placement with initiation of TPN yesterday. Levophed drip still running. Fever Tmax 38.0 overnight. Please refer to the flow sheet for NG, TENA, ostomy, and urine output. Currently on 7L/min nasal cannula oxygen. Patient is complaining of mild to moderate diffused abdominal pain. Mild shortness of breath. Denies any subjective fever, chills, or diaphoresis this morning. Reduced rate of normal saline continuous infusions from 75 cc/h to 50 cc/h. Checks x-ray to rule out pulmonary edema. Continue supplemental oxygen therapy. Continue TPN for nutritional support. Over Mab and Dilaudid for postsurgical pain controlled. Continue Zosyn while monitoring culture results. Rest of the post surgical management as per primary team. Physical therapy evaluation and treatment. Overall condition extremely guarded. Stay in ICU. 02/26: Patient ripped off his central line last evening. Dr. Mcfarland d/c NG tube last night. He is currently on Levophed drip 4mcg/min. Ostomy bag output went to the 5 cc overnight shift. Good urine output. He is on 3 L/min nasal cannula oxygen. Patient denies no pain in his abdomen. He denies any nausea or vomiting. He denies any shortness of breath. He is feeling good right now. He is tolerating sips with ice chips. We will check with general surgeon before advancing his diet. Transitions from IV Lopressor to oral metoprolol succinate for heart rate controlled. Continue t o hold Eliquis until cleared by the surgeons. Continue Zosyn to cover any intra-abdominal infections. Continue to offer narcotics with Dilaudid and as needed for abdominal pain control. Overall condition is guarded. Stay in ICU. 02/27 Review of Systems: Pertinent positives as above. Denies hea dache/fever/chills/nausea/vomiting/chest pain/cough/dyspnea/diarrhea. PHYSICAL EXAM General: Alert, Awake, No acute Distress Eyes/N/T: EOMI, no scleral icterus, Head/Neck: neck supple, full ROM, CV: irreg irreg, No murmurs, Pulm: Clear b/l, no wheezing/rhonchi/rales, no respiratory distress, nasal cannula in place Abd: soft, nontender, + BS x4, ostomy in place Ext: no clubbing/cyanosis/edema, nontender. Ventral abdominal surgical incision with wound vac in place, TENA drain in place, Ostomy bag in place Neuro: Alert, no focal deficits, moves all extremities, , sensations intact b/l upper/lower Psychiatric: Skin: warm/dry, normal color Constitutional Vitals: Vital Signs Temp Pulse Resp BP Pulse Ox O2 Del Method O2 Flow Rate 97.3 F 93 H 14 105/80 99 Nasal Cannula 4 02/26/23 11:55 02/26/23 07:38 02/26/23 07:38 02/26/23 07:30 02/26/23 07:38 02/26/23 11:55 02/26/23 11:55 Period Temp Pulse Resp BP Sys/[place] Pulse Ox O2 Del Method O2 Flow Rate Last 24 Hr 97.1 F-99.6 F 56-118 0-29 78-118/51-91 88-100 Nasal Cannula- Nasal Cannula, Oxymask 3-8 Intake and Output 02/26/23 02/26/23 02/26/23 03:59 11:59 19:59 Intake Total 80 344 5 Output Total 245 517 Balance -165 -173 5 Weight 57.289 kg 57.289 kg Patient Weight 02/27/23 03:59 Weight 57.289 kg Intake & Output: Intake & Output 02/26/23 02/26/23 02/26/23 03:59 11:59 19:59 Intake Total 80 344 5 Output Total 245 517 Balance -165 -173 5 Weight 57.289 kg 57.289 kg Intake: IV 80 226 5 Levophed 8 mg In Sodium 30 111 5 Chloride 0.9% 242 ml @ 10 MCG/ MIN 18.75 mls/hr IV Q8H [facility] Rx# :[id number] Zosyn 3.375 gm In Dextrose 5% 50 50 in Water 50 ml @ 100 mls/hr IV Q6H [facility] Rx#:[id number] Oral 118 Output: Drainage 120 Right Lower Abdomen TENA Drain 120 Urine Catheter Amount 245 222 Stool 175 Other: Urine Appearance Clear Clear Uretheral ([place]aels) Clear Clear Urine Color Yellow Dark Yellow [place] Uretheral ([place]els) Yellow Dark Yellow [place] Urine Odor Strong Stool Color Brown Stool Consistency Liquid OBJ DATA Labs 02/25/23 05:34 02/26/23 05:17 Labs: Abnormal Lab Results 02/26/23 02/25/23 02/25/23 05:17 05:34 05:34 WBC 13.7 H RBC 4.22 L Hgb 12.2 L Hct 39.3 L RDW 15.7 H Immature Gran % (Auto) 0.8 H Neut % (Auto) 82.1 H Lymph % (Auto) 6.3 L Lymph # (Auto) 0.86 L Prentiss # (Auto) 1.36 H Immature Gran # 0.11 H Absolute Neutrophils 11.22 H ABG Methemoglobin VBG pH VBG pCO2 VBG pO2 VBG HCO3 VBG Total CO2 VBG O2 Saturation VBG Base Excess VBG Lactic Acid Carboxyhemoglobin Potassium 3.1 L Carbon Dioxide 19 L Anion Gap 7.0 L BUN Creatinine 0.6 L Glucose 129 H Uric Acid 1.9 L 2.4 L Calcium 8.1 L 8.3 L Phosphorus 1.7 L 1.6 L Total Bilirubin 1.3 H 1.1 H Direct Bilirubin 0.7 H 0.4 H GGT 66 H Lactate Dehydrogenase 249 H 284 H Total Protein 5.8 L Albumin 2.6 L 2.8 L Albumin/Globulin Ratio 0.8 L 0.9 L Prealbumin 02/24/23 02/24/23 02/24/23 14:03 07:26 05:33 WBC 20.0 H RBC Hgb Hct RDW 16.0 H Immature Gran % (Auto) 0.7 H Neut % (Auto) 79.2 H Lymph % (Auto) 7.6 L Lymph # (Auto) Prentiss # (Auto) 2.36 H Immature Gran # 0.14 H Absolute Neutrophils 15.84 H ABG Methemoglobin VBG pH VBG pCO2 VBG pO2 VBG HCO3 VBG Total CO2 VBG O2 Saturation VBG Base Excess VBG Lactic Acid Carboxyhemoglobin Potassium Carbon Dioxide 21 L Anion Gap BUN 27 H Creatinine Glucose 132 H 153 H Uric Acid Calcium 7.6 L 8.3 L Phosphorus 1.4 L 2.2 L Total Bilirubin 1.1 H Direct Bilirubin 0.5 H 0.4 H GGT Lactate Dehydrogenase 256 H 257 H Total Protein 5.5 L Albumin 2.7 L 3.0 L Albumin/Globulin Ratio Prealbumin 11.5 L 02/23/23 02/23/23 02/23/23 17:58 14:39 14:35 WBC RBC Hgb Hct RDW Immature Gran % (Auto) Neut % (Auto) Lymph % (Auto) Lymph # (Auto) Prentiss # (Auto) Immature Gran # Absolute Neutrophils ABG Methemoglobin 0.2 L VBG pH 7.45 H VBG pCO2 29.5 L VBG pO2 94.5 H VBG HCO3 20.0 L VBG Total CO2 20.9 L VBG O2 Saturation 88.5 H VBG Base Excess -3 L VBG Lactic Acid 4.0 H* 4.4 H* Carboxyhemoglobin 9.0 H Potassium Carbon Dioxide Anion Gap BUN Creatinine Glucose Uric Acid Calcium Phosphorus Total Bilirubin Direct Bilirubin GGT Lactate Dehydrogenase Total Protein Albumin Albumin/Globulin Ratio Prealbumin Meds: Medications Albuterol/Ipratropium (Ipratropium/Albuterol 3 Ml Ampul.Neb) 3 ml NEB Q4HP PRN PRN Reason: Shortness Of Breath Atorvastatin Calcium (Atorvastatin 20 Mg Tablet) 20 mg PO QDAY NILESH Last Admin: 02/26/23 08:26 Dose: 20 mg Chlorhexidine Gluconate (Chlorhexidine Gluconate 1 Ml Oral.Yusra) 15 ml SWABMOUTH BID NILESH Last Admin: 02/26/23 08:27 Dose: 15 ml Dextrose (Dextrose 50% 50 Ml Vial) 0 ml IV UD PRN PRN Reason: Per Sliding Scale Diagnostic Test (Pha) (Accu-Chek 1 Each Strip) 1 each FS Q6 NILESH Last Admin: 02/26/23 11:35 Dose: 1 each Glucose (Dextrose 31 Gm Oral.Susp) 15 gm PO PRN PRN PRN Reason: Hypoglycemia Hydromorphone HCl (Hydromorphone 0.5 Mg/0.5 Ml Syringe) 0.5 mg IV Q2HP PRN; Protocol PRN Reason: Per Pain Protocol Last Admin: 02/26/23 03:49 Dose: 0.5 mg Heparin Sodium/Sodium Chloride (Heparin/Ns) 500 mls @ 0 mls/hr IV .Q0M NILESH; Protocol Sodium Chloride (Sodium Chloride 0.9%) 250 mls @ 20 mls/hr IV .[id number] NILESH Last Admin: 02/26/23 02:45 Dose: Not Given Piperacillin Sod/Tazobactam (Sod 3.375 gm/ Dextrose) 50 mls @ 100 mls/hr IV Q6H [facility]; Protocol Last Admin: 02/26/23 11:31 Dose: 100 mls/hr Acetaminophen (Ofirmev) 650 mg in 65 mls @ 130 mls/hr IV Q6HP PRN; Protocol PRN Reason: PAIN/FEVER > 101 Last Infusion: 02/26/23 09:55 Dose: Infused Norepinephrine Bitartrate 8 mg (/ Sodium Chloride) 250 mls @ 18.75 mls/hr IV Q8H [facility]; Protocol Last Admin: 02/26/23 12:57 Dose: Not Given Potassium Chloride/Dextrose/Sod Cl (Dextrose 5%-1/2ns W/20meq Kcl) 1,000 mls @ 50 mls/hr IV .Q20H [facility]IL[facility] Last Admin: 02/26/23 08:27 Dose: 50 mls/hr Insulin Human Lispro (Insulin Lispro 1 Unit/0.01 Ml Unit) 0 unit SQ Q6 NILESH; Protocol Last Admin: 02/26/23 11:32 Dose: 1 unit Lidocaine (Lidocaine Patch) 1 patch TOPICAL DAILY@1000 NILESH Last Admin: 02/26/23 11:16 Dose: 1 patch Metoclopramide HCl (Metoclopramide 10 Mg/2 Ml Vial) 5 mg IV Q12 [facility] Last Admin: 02/26/23 08:10 Dose: 5 mg Metoprolol Succinate (Metoprolol Succinate 50 Mg Tab.Xl.24h) 50 mg PO QDAY [facility] Last Admin: 02/26/23 08:26 Dose: 50 mg Metoprolol Tartrate (Metoprolol Tartrate 5 Mg/5 Ml Vial) 5 mg IV Q2HP PRN PRN Reason: For a heart rate >110 Last Admin: 02/26/23 09:19 Dose: 5 mg Ondansetron HCl (Ondansetron 4 Mg/2 Ml Vial) 4 mg IV Q6HP PRN PRN Reason: Nausea And Vomiting Last Admin: 02/24/23 04:31 Dose: 4 mg Pantoprazole Sodium (Pantoprazole 40 Mg Vial) 40 mg IV QAMAC [facility] Last Admin: 02/26/23 08:10 Dose: 40 mg Sodium Chloride (0.9 % Sodium Chloride 10 Ml Syringe) 10 ml IV Q8 [facility] Last Admin: 02/26/23 12:57 Dose: Not Given Sodium Chloride (0.9 % Sodium Chloride 10 Ml Syringe) 10 ml IV UD PRN PRN Reason: Wound Healing Sodium Chloride (0.9 % Sodium Chloride 10 Ml Syringe) 10 ml IV Q12 [facility] Last Admin: 02/26/23 08:43 Dose: 10 ml Tamsulosin HCl (Tamsulosin 0.4 Mg Capsule) 0.4 mg PO QDAY [facility] Last Admin: 02/26/23 08:26 Dose: 0.4 mg ABG Interpretation ABG results: 02/23/23 14:39 ABG Methemoglobin 0.2 L VBG pH 7.45 H VBG pCO2 29.5 L VBG pO2 94.5 H VBG HCO3 20.0 L VBG Total CO2 20.9 L VBG O2 Saturation 88.5 H VBG Base Excess -3 L A/P Narrative A/P Narrative: A: *SBO: s/p Ex-lap 02/22 *Respiratory Failure post-op: -Extubated 02/23 *Hypovolemia with lactic acidosis: improved *Shock: 2/2 above -on levophed *Acute delirium" *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 Willis for SBO -diet per surgery -IVF's -levophed, wean -empiric abx -prn Nebs, IS/Acapella, RT -Monitor and replace electrolytes -Monitor renal function/UOP/ -nilesh IV BB while npo, prn lopressor. starte po toprol -supp O2 as per home regimen, prn nebs, home IH's -Frequent reorientations during the day and protected sleep during the night, [place]erium[place] precautions, -pt/ot -restarted flomax -ppx: Heparin (hold apixaban for now, restart when ok with surgery) / ppi Time Spent With Patient Time: Total time spent is greater than 50% in coordination of care (as documented) at patient's floor/unit and/or counseling patient: QUALITY Stroke Symptom Onset Unknown: No VTE Deep Vein Thrombosis/Pulmonary Embolism Present on Admission: No
--- NOTE | 2023-02-26 14:09 | General Surgery Progress Note ---
SUBJECTIVE Subjective Patient information: Note initiated : 02/26/23 at 2:07 pm Service Date, if different from initiated Date: [] Patient: Fei Rodrigues 87 y/o M admitted on 02/19/23 for abdominal pain/nausea. Chief Complaint: [] Doing well today, belly pain is minimal, has tolerated clear sips with NGT out, increasing ostomy output Principal diagnosis: Small bowel obstruction Constitutional Vitals: Vital Signs Temp Pulse Resp BP Pulse Ox O2 Del Method O2 Flow Rate 97.3 F 93 H 14 105/80 99 Nasal Cannula 4 02/26/23 11:55 02/26/23 07:38 02/26/23 07:38 02/26/23 07:30 02/26/23 07:38 02/26/23 11:55 02/26/23 11:55 Period Temp Pulse Resp BP Sys/[place] Pulse Ox O2 Del Method O2 Flow Rate Last 24 Hr 97.1 F-99.6 F 56-118 0-28 78-118/51-91 88-100 Nasal Cannula- Nasal Cannula 3-8 Intake and Output 02/26/23 02/26/23 02/26/23 03:59 11:59 19:59 Intake Total 80 344 5 Output Total 245 517 40 Balance -165 -173 -35 Weight 126 lb 4.8 oz 126 lb 4.8 oz Patient Weight 02/27/23 03:59 Weight 126 lb 4.8 oz Intake & Output: Intake & Output 02/26/23 02/26/23 02/26/23 03:59 11:59 19:59 Intake Total 80 344 5 Output Total 245 517 40 Balance -165 -173 -35 Weight 126 lb 4.8 oz 126 lb 4.8 oz Intake: IV 80 226 5 Levophed 8 mg In Sodium 30 111 5 Chloride 0.9% 242 ml @ 10 MCG/ MIN 18.75 mls/hr IV Q8H [facility] Rx# :[id number] Zosyn 3.375 gm In Dextrose 5% 50 50 in Water 50 ml @ 100 mls/hr IV Q6H [facility] Rx#:[id number] Oral 118 Output: Drainage 120 15 Right Lower Abdomen TENA Drain 120 15 Urine Catheter Amount 245 222 25 Stool 175 Other: Urine Appearance Clear Sediment Sediment Uretheral (Michaels) Clear Clear Urine Color Yellow Dark Yellow Dark Yellow [place] Uretheral (Michaels) Yellow Dark Yellow [place] Urine Odor Strong Stool Color Brown Stool Consistency Liquid Exam: alert, fully conversant, non toxic Respiratory Additional comments: normal effort without distress Cardiovascular Cardiovascular exam: Present RRR GI/Abdominal Additional comments: soft and non tender, non distended, VAC in place, drain is serosang A/P Assessment and plan (1) Small bowel obstruction: Assessment and plan: POD #4 Ex lap, lysis of adhesion for non resolving SBO Doing Well with improving bowel function Clear liquids with aspiration precautions Increase activity as able Status: Acute Time Spent With Patient Time: Total time spent is greater than 50% in coordination of care (as documented) at patient's floor/unit and/or counseling patient:
[2023-02-26] MEDS: MELATONIN 3 MG TABLET PO SCH (20:19)
[2023-02-26] MEDS: diphenhydrAMINE 25 MG CAPSULE PO PRN (20:19)
[2023-02-26] MEDS: HEPARIN 5,000 UNIT/ML VIAL SQ SCH (20:20)
[2023-02-27] MEDS: INSULIN LISPRO 1 UNIT/0.01 ML UNIT SQ SCH ×4 (01:51→18:24)
[2023-02-27] MEDS: PIPERACILLIN SODIUM/TAZOBACTAM 3.375 GM in DEXTROSE 5% IN WATER 50 ML IV SCH ×4 (01:52→17:50)
[2023-02-27] MEDS: 0.9 % SODIUM CHLORIDE 250 ML IV SCH ×2 (05:05→18:24)
[2023-02-27] MEDS: DEXTROSE 5%-1/2NS W/20MEQ KCL 1,000 ML IV SCH (05:09)
[2023-02-27] MEDS ORDERED: POTASSIUM CHLORIDE 20 MEQ TABLET PO PRN (05:17)
[2023-02-27] MEDS ORDERED: POTASSIUM CHLORIDE 40 MEQ in DEXTROSE 5% IN WATER 500 ML IV PRN (05:19)
[2023-02-27] MEDS ORDERED: MAGNESIUM SULFATE 2 GM/50 ML BAG IV PRN (05:21)
[2023-02-27] MEDS: NOREPINEPHRINE BITARTRATE 8 MG in 0.9 % SODIUM CHLORIDE 242 ML IV SCH ×2 (05:28→17:02)
[2023-02-27] MEDS: 0.9 % SODIUM CHLORIDE 10 ML SYRINGE IV SCH ×5 (05:30→21:17)
[2023-02-27 06:48] LABS: ALT/SGPT 12 U/L (<40); AST/SGOT 22 U/L (<40); Albumin 2.7 gm/dL (3.2-5.2); Alkaline Phosphatase 142 U/L (39-117); Bilirubin,Direct 0.5 mg/dL (<0.3); Bilirubin,Total 1.1 mg/dL (0.1-1.0); Blood Urea Nitrogen 21 mg/dL (8-23); Calcium 8.3 mg/dL (8.6-10.4); Carbon Dioxide 22 mmol/L (22-30); Chloride 107 mmol/L (96-108); Globulin 2.7 gm/dL (2.2-3.7); Glomerular Filtration Rate 85; Glucose 97 mg/dL (70-105); Lactate Dehydrogenase 284 U/L (135-225); Phosphorous 2.1 mg/dL (2.5-4.5); Prealbumin 7.7 mg/dL (20.0-40.0); Triglycerides 82 mg/dL (<150)
[2023-02-27] MEDS: PANTOPRAZOLE 40 MG VIAL IV SCH (07:21)
--- NOTE | 2023-02-27 07:46 | Internal Med Progress Note ---
SUBJECTIVE Subjective Patient information: Note initiated : 02/27/23 at 7:44 am Service Date, if different from initiated Date: [] Patient: Fei Rodrigues 87 y/o M admitted on 02/19/23 for abdominal pain/nausea. Chief Complaint: [] Principal diagnosis: Small bowel obstruction Interval history: HPI: Patient presents the ED with nausea vomiting and abdominal pain overnight. Patient's had small bowel obstruction in the past and stated that it felt very similar. 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 Follows with Dr. Mcfarland and Dr. Cohen. Patient denies chest pain or shortness of breath. Patient states that he had developing nausea vomiting and crampy abdominal pain started 1 to 2 days ago. Patient denies chest pain shortness of breath coughing. Also had an episode of A-fib RVR in the ED and was given diltiazem with improvement. Patient does have history of atrial fibrillation. Case is discussed with Dr. Willis and patient was thus admitted. Currently n.p.o. with NG tube in place. 02/20 Patient having bowel movements overnight. Patient did have a little bit of nausea vomiting. Abdominal pain improving. Heart rate in the 90s. 02/21: Patient was agitated and pulled his NG tube/ IV access overnight. Now the NG tube and IV access were replaced. Hand mittens on. There was no bowel movement overnight. Continue NG tube, n.p.o. status with IV fluid, and symptoms management. Continue Lopressor IV both scheduled and PRN for heart rate control. Continue to hold Eliquis for now because of the NG tube and because of the fact that surgery might eventually be indicated. Overall condition guarded. 02/22: Still does not have a bowel movement overnight. Patient is on 2L/min oxygen. Initial blood culture grew Leuconostoc species in one set one bottle. Dr. Willis is ordering a small bowel follow-through with contrast today. Continue NG tube, n.p.o. status with IV fluid, and symptoms management. Continue Lopressor IV both scheduled and PRN for heart rate control. Continue to hold Eliquis for now because of the NG tube and because of the fact that surgery might eventually be indicated. Overall condition guarded. 02/23: Dr. Willis took patient to the OR on evening of 02/22 for ex lap with lysis of adhesion. Patient transferred to ICU after returning back from the OR. Patient intubated and mechanically ventilated with the following settings: volume AC, RR 18, Vt 500, PEEP 5, FiO2 30%. Fentanyl and Propofol drip. Cardizem drip. Levophed drip. D5 1/2NS w/ KCL 20mEq @125cc/hr. NPO. No ostomy bag output. Zosyn to cover any intra-abdominal infection. Daily sedation holiday for extubation trial. Overall condition extremely guarded 02/24: Patient was extubated yesterday afternoon. Fentanyl and propofol drip were off. Cardizem drip was also off. Patient is currently still on Levophed drip. NG tube in place with only minimal output. Ostomy bag no output. He is on 4 L/min nasal cannula oxygen. Patient has adequate urine output overnight. Patient is complaining of moderate pain around his abdominal incision sites. Continue D5 half NS with KCl 20 mEq at 125 cc/min. We will check with Dr. Willis regarding timing for feeding either enterically or TPN. Continue pain control with Ultram and and Dilaudid IV, respectively for different severity of pain. Continue Zosyn for coverage of any intra-abdominal infection. Overall condition still extremely guarded. Stay in ICU. Physical therapy evaluation and treatment. 02/25: Status post centerline placement with initiation of TPN yesterday. Levophed drip still running. Fever Tmax 38.0 overnight. Please refer to the flow sheet for NG, TENA, ostomy, and urine output. Currently on 7L/min nasal cannula oxygen. Patient is complaining of mild to moderate diffused abdominal pain. Mild shortness of breath. Denies any subjective fever, chills, or diaphoresis this morning. Reduced rate of normal saline continuous infusions from 75 cc/h to 50 cc/h. Checks x-ray to rule out pulmonary edema. Continue supplemental oxygen therapy. Continue TPN for nutritional support. Over Mab and Dilaudid for postsurgical pain controlled. Continue Zosyn while monitoring culture results. Rest of the post surgical management as per primary team. Physical therapy evaluation and treatment. Overall condition extremely guarded. Stay in ICU. 02/26: Patient ripped off his central line last evening. Dr. Mcfarland d/c NG tube last night. He is currently on Levophed drip 4mcg/min. Ostomy bag output went to the 5 cc overnight shift. Good urine output. He is on 3 L/min nasal cannula oxygen. Patient denies no pain in his abdomen. He denies any nausea or vomiting. He denies any shortness of breath. He is feeling good right now. He is tolerating sips with ice chips. We will check with general surgeon before advancing his diet. Transitions from IV Lopressor to oral metoprolol succinate for heart rate controlled. Continue to hold Eliquis until cleared by the surgeons. Continue Zosyn to cover any intra-abdominal infections. Continue to offer narcotics with Dilaudid and as needed for abdominal pain control. Overall condition is guarded. Stay in ICU. 02/27 Blood pressures still soft. Levophed off since last night. Maps greater than 65 maintaining. monitor urine output which is borderline low. Has had some liqui d stools. Levophed off since last night. Mild hypokalemia some short asymptomatic runs of V. tach 10 beats. Hypophosphatemia. Review of Systems: Pertinent positives as above. Denies headache/feve r/chills/nausea/vomiting/chest pain/cough/dyspnea/diarrhea. PHYSICAL EXAM General: Alert, Awake, No acute Distress Eyes/N/T: EOMI, no scleral icterus, Head/Neck: neck supple, full ROM, CV: irreg irreg, No murmurs, Pulm: Clear b/l, no wheezing/rhonchi/rales, no respiratory distress, nasal les urban in place Abd: soft, nontender, + BS x4, ostomy in place Ext: no clubbing/cyanosis/edema, nontender. Ventral abdominal surgical incision with wound vac in place, TENA drain in place, Ostomy bag in place Neuro: Alert, no focal deficits, moves all extremities, , sensations intact b/l upper/lower Psychiatric: Skin: warm/dry, normal color Constitutional Vitals: Vital Signs Temp Pulse Resp BP Pulse Ox O2 Del Method O2 Flow Rate 98.3 F 95 H 24 H 86/65 100 High Flow Nasal Cannula, Bubble Humidifier 6 02/27/23 04:00 02/27/23 07:00 02/27/23 07:00 02/27/23 07:00 02/27/23 07:00 02/27/23 04:00 02/27/23 04:00 Period Temp Pulse Resp BP Sys/Lovell Pulse Ox O2 Del Method O2 Flow Rate Last 24 Hr 97.3 F-98.6 F 83-162 0-38 74-149/41-120 78-100 High Flow Nasal Cannula, Bubble Humidifier-Oxymask, High Flow Nasal Cannula, Bubble Humidifier 4-8 Intake and Output 02/26/23 02/27/23 02/27/23 19:59 03:59 11:59 Intake Total 228 797 9042 Output Total 160 605 160 Balance 330 -490 840 Weight 57.289 kg 60.917 kg Intake & Output: Intake & Output 02/26/23 02/27/23 02/27/23 19:59 03:59 11:59 Intake Total 189 815 2867 Output Total 160 605 160 Balance 330 -490 840 Weight 57.289 kg 60.917 kg Intake: Nourishment/Supplement quantity 236 (ml) IV 929 792 3556 Dextrose 5%-1/2Ns W/20Meq KCl 1 1000 ,000 ml @ 50 mls/hr IV .Q20H [facility] Rx#:[id number] Levophed 8 mg In Sodium 36 Chloride 0.9% 242 ml @ 10 MCG/ MIN 18.75 mls/hr IV Q8H [facility] Rx# :[id number] Zosyn 3.375 gm In Dextrose 5% 100 50 in Water 50 ml @ 100 mls/hr IV Q6H [facility] Rx#:[id number] Oral 118 Output: Drainage 35 Right Lower Abdomen TENA Drain 35 Drainage 15 85 40 Right Lower Abdomen TENA Drain 15 85 40 Urine Catheter Amount 110 395 90 Stool 125 30 Other: Nourishment/Supplement name Ensure clear Urine Appearance Clear Clear Clear Uretheral (Michaels) Sediment Sediment Urine Color Yellow Yellow Yellow Steuben Steuben Steuben Uretheral (Michaels) Yellow Yellow Steuben Steuben Stool Color Brown Brown Stool Consistency Liquid Liquid OBJ DATA Labs 02/27/23 08:07 02/27/23 05:03 Labs: Abnormal Lab Results 02/27/23 02/26/23 02/25/23 05:03 05:17 05:34 WBC RBC Hgb Hct RDW Immature Gran % (Auto) Neut % (Auto) Lymph % (Auto) Lymph # (Auto) [place] # (Auto) Immature Gran # Absolute Neutrophils Potassium 3.1 L 3.1 L Carbon Dioxide 19 L Anion Gap 7.0 L BUN Creatinine 0.6 L Glucose 129 H Uric Acid 2.0 L 1.9 L 2.4 L Calcium 8.3 L 8.1 L 8.3 L Phosphorus 2.1 L 1.7 L 1.6 L Total Bilirubin 1.1 H 1.3 H 1.1 H Direct Bilirubin 0.5 H 0.7 H 0.4 H GGT 70 H 66 H Alkaline Phosphatase 142 H Lactate Dehydrogenase 284 H 249 H 284 H Total Protein 5.4 L 5.8 L Albumin 2.7 L 2.6 L 2.8 L Albumin/Globulin Ratio 0.8 L 0.9 L Prealbumin 7.7 L 02/25/23 02/24/23 02/24/23 05:34 14:03 07:26 WBC 13.7 H RBC 4.22 L Hgb 12.2 L Hct 39.3 L RDW 15.7 H Immature Gran % (Auto) 0.8 H Neut % (Auto) 82.1 H Lymph % (Auto) 6.3 L Lymph # (Auto) 0.86 L [place] # (Auto) 1.36 H Immature Gran # 0.11 H Absolute Neutrophils 11.22 H Potassium Carbon Dioxide 21 L Anion Gap BUN 27 H Creatinine Glucose 132 H 153 H Uric Acid Calcium 7.6 L 8.3 L Phosphorus 1.4 L 2.2 L Total Bilirubin 1.1 H Direct Bilirubin 0.5 H 0.4 H GGT Alkaline Phosphatase Lactate Dehydrogenase 256 H 257 H Total Protein 5.5 L Albumin 2.7 L 3.0 L Albumin/Globulin Ratio Prealbumin 11.5 L Meds: Medications Albuterol/Ipratropium (Ipratropium/Albuterol 3 Ml Ampul.Neb) 3 ml NEB Q4HP PRN PRN Reason: Shortness Of Breath Atorvastatin Calcium (Atorvastatin 20 Mg Tablet) 20 mg PO QDAY [facility] Last Admin: 02/26/23 08:26 Dose: 20 mg Chlorhexidine Gluconate (Chlorhexidine Gluconate 1 Ml Oral.Yusra) 15 ml SWABMOUTH BID [facility] Last Admin: 02/26/23 20:22 Dose: 15 ml Dextrose (Dextrose 50% 50 Ml Vial) 0 ml IV UD PRN PRN Reason: Per Sliding Scale Diagnostic Test (Pha) (Accu-Chek 1 Each Strip) 1 each FS Q6 [facility] Last Admin: 02/27/23 06:03 Dose: 1 each Diphenhydramine HCl (Diphenhydramine 25 Mg Capsule) 25 mg PO HSP PRN PRN Reason: Insomnia Last Admin: 02/26/23 20:19 Dose: 25 mg Glucose (Dextrose 31 Gm Oral.Susp) 15 gm PO PRN PRN PRN Reason: Hypoglycemia Heparin Sodium (Porcine) (Heparin 5,000 Unit/Ml Vial) 5,000 unit SQ Q12 [facility] Last Admin: 02/26/23 20:20 Dose: 5,000 unit Hydromorphone HCl (Hydromorphone 0.5 Mg/0.5 Ml Syringe) 0.5 mg IV Q2HP PRN; Protocol PRN Reason: Per Pain Protocol Last Admin: 02/26/23 03:49 Dose: 0.5 mg Heparin Sodium/Sodium Chloride (Heparin/Ns) 500 mls @ 0 mls/hr IV .Q0M [facility]; Protocol Sodium Chloride (Sodium Chloride 0.9%) 250 mls @ 20 mls/hr IV .[id number] [facility] Last Admin: 02/27/23 05:05 Dose: Not Given Piperacillin Sod/Tazobactam (Sod 3.375 gm/ Dextrose) 50 mls @ 100 mls/hr IV Q6H [facility]; Protocol Last Admin: 02/27/23 05:33 Dose: 100 mls/hr Acetaminophen (Ofirmev) 650 mg in 65 mls @ 130 mls/hr IV Q6HP PRN; Protocol PRN Reason: PAIN/FEVER > 101 Last Infusion: 02/26/23 23:15 Dose: Infused Norepinephrine Bitartrate 8 mg (/ Sodium Chloride) 250 mls @ 18.75 mls/hr IV Q8H [facility]; Protocol Last Admin: 02/27/23 05:28 Dose: Not Given Potassium Chloride/Dextrose/Sod Cl (Dextrose 5%-1/2ns W/20meq Kcl) 1,000 mls @ 50 mls/hr IV .Q20H [facility] Last Admin: 02/27/23 05:09 Dose: 50 mls/hr Potassium Chloride 40 meq/ (Dextrose) 520 mls @ 130 mls/hr IV PRN PRN PRN Reason: Potassium < 3 Magnesium Sulfate (Magnesium Sulfate) 2 gm in 50 mls @ 50 mls/hr IV PRN PRN PRN Reason: Magnesium </+ 1.6 Insulin Human Lispro (Insulin Lispro 1 Unit/0.01 Ml Unit) 0 unit SQ Q6 [facility]; Protocol Last Admin: 02/27/23 06:09 Dose: Not Given Lidocaine (Lidocaine Patch) 1 patch TOPICAL DAILY@1000 [facility] Last Admin: 02/26/23 11:16 Dose: 1 patch Melatonin (Melatonin 3 Mg Tablet) 3 mg PO ONCE [facility] Last Admin: 02/26/23 20:19 Dose: 3 mg Metoclopramide HCl (Metoclopramide 10 Mg/2 Ml Vial) 5 mg IV Q12 [facility] Last Admin: 02/26/23 20:19 Dose: 5 mg Metoprolol Succinate (Metoprolol Succinate 50 Mg Tab.Xl.24h) 50 mg PO QDAY [facility] Last Admin: 02/26/23 08:26 Dose: 50 mg Metoprolol Tartrate (Metoprolol Tartrate 5 Mg/5 Ml Vial) 5 mg IV Q2HP PRN PRN Reason: For a heart rate >110 Last Admin: 02/26/23 09:19 Dose: 5 mg Ondansetron HCl (Ondansetron 4 Mg/2 Ml Vial) 4 mg IV Q6HP PRN PRN Reason: Nausea And Vomiting Last Admin: 02/24/23 04:31 Dose: 4 mg Pantoprazole Sodium (Pantoprazole 40 Mg Vial) 40 mg IV QAMAC [facility] Last Admin: 02/27/23 07:21 Dose: 40 mg Potassium Chloride (Potassium Chloride 20 Meq Tablet) 40 meq PO PRN PRN PRN Reason: Potassium is 3-3.5 Potassium Chloride (Potassium Chloride 20 Meq Tablet) 40 meq PO PRN PRN PRN Reason: Potassium < 3 Sodium Chloride (0.9 % Sodium Chloride 10 Ml Syringe) 10 ml IV Q8 [facility] Last Admin: 02/27/23 05:30 Dose: 10 ml Sodium Chloride (0.9 % Sodium Chloride 10 Ml Syringe) 10 ml IV UD PRN PRN Reason: Wound Healing Sodium Chloride (0.9 % Sodium Chloride 10 Ml Syringe) 10 ml IV Q12 [facility] Last Admin: 02/26/23 21:58 Dose: Not Given Tamsulosin HCl (Tamsulosin 0.4 Mg Capsule) 0.4 mg PO QDAY [facility] Last Admin: 02/26/23 08:26 Dose: 0.4 mg ABG Interpretation ABG results: 02/23/23 14:39 ABG Methemoglobin 0.2 L VBG pH 7.45 H VBG pCO2 29.5 L VBG pO2 94.5 H VBG HCO3 20.0 L VBG Total CO2 20.9 L VBG O2 Saturation 88.5 H VBG Base Excess -3 L A/P Narrative A/P Narrative: A: *SBO: s/p Ex-lap 02/22 -per Surgeon *Respiratory Failure post-op: -Extubated 02/23 -no 6L HFNC *Hypovolemia with lactic acidosis: improved *Shock w/lactic acidosis: 2/2 above -on levophed off since last night *Acute delirium: *Hypokalemia/hypophosphatemia: *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 Willis for SBO -diet per surgery -IVF's -levophed prn -empiric abx -prn Nebs, IS/Acapella, RT -Monitor and replace electrolytes -Monitor renal function/UOP/ -hold BB for hypotension -supp O2 as per home regimen, prn nebs, home IH's -Frequent reorientations during the day and protected sleep during the night, Deleriuma precautions, -pt/ot -restarted flomax -ppx: Heparin (hold apixaban for now, restart when ok with surgery) / ppi Time Spent With Patient Time: Total time spent is greater than 50% in coordination of care (as documented) at patient's floor/unit and/or counseling patient: Subsequent: Total time with patient: 50 - 65 Minutes QUALITY Stroke Symptom Onset Unknown: No VTE Deep Vein Thrombosis/Pulmonary Embolism Present on Admission: No Restraints Restraint In Place: No
[2023-02-27 08:42] LABS: Hematocrit 35.3 % (40.1-51.0); Hemoglobin 11.5 g/dL (13.7-17.5); Mean Cell Volume 98.1 fL (80.0-100.0); Mean Corpuscular HGB Conc 32.6 g/dL (31.0-36.0); Mean Platelet Volume 10.5 fL (8.8-12.5); Platelet Count 153 K/mcL (140-440); Red Cell Distribution Width 18.1 % (11.5-14.5); WBC 8.1 K/mcL (4.5-11.0)
[2023-02-27 09:14] LABS: Anisocytosis 1+ (None Seen); Eosinophils % (Manual) 4 % (0-7); Lymphocytes % 8 % (15-49); Monocytes % (Manual) 11 % (1-12); Platelet Estimate NORMAL (Normal); RBC Morphology ABNORMAL (Normal); Segmented Neutrophils % 77 % (38-78)
[2023-02-27] MEDS: TAMSULOSIN 0.4 MG CAPSULE PO SCH (09:46)
[2023-02-27] MEDS: NEUTRA PHOS 1 PACKET PO SCH ×2 (09:46→21:08)
[2023-02-27] MEDS: HEPARIN 5,000 UNIT/ML VIAL SQ SCH ×2 (09:46→21:08)
[2023-02-27] MEDS: PHOSPHORUS 250 MG TABLET PO SCH ×2 (09:46→21:15)
[2023-02-27] MEDS: ATORVASTATIN 20 MG TABLET PO SCH (09:46)
[2023-02-27] MEDS: CHLORHEXIDINE GLUCONATE 1 ML ORAL.SOL SWABMOUTH SCH ×2 (09:47→21:09)
[2023-02-27] MEDS: METOCLOPRAMIDE 10 MG/2 ML VIAL IV SCH ×2 (09:47→21:08)
--- NOTE | 2023-02-27 10:02 | General Surgery Progress Note ---
SUBJECTIVE Subjective Patient information: Note initiated : 02/27/23 at 9:55 am Service Date, if different from initiated Date: [] Patient: Fei Rodrigues 87 y/o M admitted on 02/19/23 for abdominal pain/nausea. Chief Complaint: [] Has done well with clears per nursing, no nausea or emesis. Pressures remain marginal, having stomal output Principal diagnosis: Small bowel obstruction Constitutional Vitals: Vital Signs Temp Pulse Resp BP Pulse Ox O2 Del Method O2 Flow Rate 98.3 F 95 H 24 H 86/65 100 High Flow Nasal Cannula, Bubble Humidifier 6 02/27/23 04:00 02/27/23 07:00 02/27/23 07:00 02/27/23 07:00 02/27/23 07:00 02/27/23 04:00 02/27/23 04:00 Period Temp Pulse Resp BP Sys/Lovell Pulse Ox O2 Del Method O2 Flow Rate Last 24 Hr 97.3 F-98.6 F 83-162 0-38 74-149/41-120 78-100 High Flow Nasal Cannula, Bubble Humidifier-Oxymask, High Flow Nasal Cannula, Bubble Humidifier 4-8 Intake and Output 02/26/23 02/27/23 02/27/23 19:59 03:59 11:59 Intake Total 693 751 6977 Output Total 160 605 160 Balance 330 -490 840 Weight 126 lb 4.8 oz 134 lb 4.8 oz Intake & Output: Intake & Output 02/26/23 02/27/23 02/27/23 19:59 03:59 11:59 Intake Total 768 618 1060 Output Total 160 605 160 Balance 330 -490 840 Weight 126 lb 4.8 oz 134 lb 4.8 oz Intake: Nourishment/Supplement quantity 236 (ml) IV 574 191 4523 Dextrose 5%-1/2Ns W/20Meq KCl 1 1000 ,000 ml @ 50 mls/hr IV .Q20H [facility] Rx#:[id number] Levophed 8 mg In Sodium 36 Chloride 0.9% 242 ml @ 10 MCG/ MIN 18.75 mls/hr IV Q8H [facility] Rx# :[id number] Zosyn 3.375 gm In Dextrose 5% 100 50 in Water 50 ml @ 100 mls/hr IV Q6H [facility] Rx#:[id number] Oral 118 Output: Drainage 35 Right Lower Abdomen TENA Drain 35 Drainage 15 85 40 Right Lower Abdomen TENA Drain 15 85 40 Urine Catheter Amount 110 395 90 Stool 125 30 Other: Nourishment/Supplement name Ensure clear Urine Appearance Clear Clear Clear Uretheral (Michaels) Sediment Sediment Urine Color Yellow Yellow Yellow Jbphh Jbphh Jbphh Uretheral (Michaels) Yellow Yellow Jbphh Jbphh Stool Color Brown Brown Stool Consistency Liquid Liquid Exam: sleepy but conversant, no obvious toxicity or distress GI/Abdominal Additional comments: soft and non distended, non tender, VAC in place, drain non enteric, non purulent sero sang. A/P Assessment and plan (1) Small bowel obstruction: Status: Acute Plan POD #5 Ex Lap and Lysis of Adhesions for Recurrent SBO Obstruction continues to seem resolved post exploration Advance to full liquids Continue VAC for now Time Spent With Patient Time: Total time spent is greater than 50% in coordination of care (as documented) at patient's floor/unit and/or counseling patient:
[2023-02-27] MEDS: ACETAMINOPHEN 650 MG/65 ML BAG IV PRN ×2 (10:11→17:45)
[2023-02-27] MEDS: LIDOCAINE PATCH TOPICAL SCH (10:19)
[2023-02-27] MEDS: METOPROLOL TARTRATE 5 MG/5 ML VIAL IV PRN (12:15)
[2023-02-27] MEDS ORDERED: MELATONIN 3 MG TABLET PO ONE (20:59)
[2023-02-27] MEDS: MELATONIN 3 MG TABLET PO SCH (21:08)
[2023-02-27] MEDS: diphenhydrAMINE 25 MG CAPSULE PO PRN (21:08)
[2023-02-28] MEDS: NOREPINEPHRINE BITARTRATE 8 MG in 0.9 % SODIUM CHLORIDE 242 ML IV SCH ×2 (00:32→05:57)
[2023-02-28] MEDS: PIPERACILLIN SODIUM/TAZOBACTAM 3.375 GM in DEXTROSE 5% IN WATER 50 ML IV SCH ×4 (00:33→17:10)
[2023-02-28] MEDS: DEXTROSE 5%-1/2NS W/20MEQ KCL 1,000 ML IV SCH (01:30)
[2023-02-28] MEDS: ACETAMINOPHEN 650 MG/65 ML BAG IV PRN (01:35)
[2023-02-28] MEDS: 0.9 % SODIUM CHLORIDE 250 ML IV SCH (05:56)
[2023-02-28] MEDS: INSULIN LISPRO 1 UNIT/0.01 ML UNIT SQ SCH ×5 (06:42→23:58)
[2023-02-28] MEDS: 0.9 % SODIUM CHLORIDE 10 ML SYRINGE IV SCH ×3 (06:43→20:21)
[2023-02-28 06:50] LABS: ALT/SGPT 22 U/L (<40); AST/SGOT 25 U/L (<40); Albumin 2.6 gm/dL (3.2-5.2); Albumin/Globulin Ratio 0.9 (1.0-2.3); Alkaline Phosphatase 182 U/L (39-117); Bilirubin,Direct 0.4 mg/dL (<0.3); Bilirubin,Total 0.8 mg/dL (0.1-1.0); Blood Urea Nitrogen 19 mg/dL (8-23); Calcium 7.9 mg/dL (8.6-10.4); Carbon Dioxide 23 mmol/L (22-30); Chloride 106 mmol/L (96-108); Globulin 2.8 gm/dL (2.2-3.7); Glomerular Filtration Rate 85; Glucose 103 mg/dL (70-105); Lactate Dehydrogenase 186 U/L (135-225); Phosphorous 3.3 mg/dL (2.5-4.5); Triglycerides 67 mg/dL (<150); Uric Acid 1.9 mg/dL (2.5-8.0)
--- NOTE | 2023-02-28 07:14 | Internal Med Progress Note ---
SUBJECTIVE Subjective Patient information: Note initiated : 02/28/23 at 7:13 am Service Date, if different from initiated Date: [] Patient: Fei Rodrigues 87 y/o M admitted on 02/19/23 for abdominal pain/nausea. Chief Complaint: [] Principal diagnosis: Small bowel obstruction Interval history: HPI: Patient presents the ED with nausea vomiting and abdominal pain overnight. Patient's had small bowel obstruction in the past and stated that it felt very similar. 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 Follows with Dr. Mcfarland and Dr. Cohen. Patient denies chest pain or shortness of breath. Patient states that he had developing nausea vomiting and crampy abdominal pain started 1 to 2 days ago. Patient denies chest pain shortness of breath coughing. Also had an episode of A-fib RVR in the ED and was given diltiazem with improvement. Patient does have history of atrial fibrillation. Case is discussed with Dr. Willis and patient was thus admitted. Currently n.p.o. with NG tube in place. 02/20 Patient having bowel movements overnight. Patient did have a little bit of nausea vomiting. Abdominal pain improving. Heart rate in the 90s. 02/21: Patient was agitated and pulled his NG tube/ IV access overnight. Now the NG tube and IV access were replaced. Hand mittens on. There was no bowel movement overnight. Continue NG tube, n.p.o. status with IV fluid, and symptoms management. Continue Lopressor IV both scheduled and PRN for heart rate control. Continue to hold Eliquis for now because of the NG tube and because of the fact that surgery might eventually be indicated. Overall condition guarded. 02/22: Still does not have a bowel movement overnight. Patient is on 2L/min oxygen. Initial blood culture grew Leuconostoc species in one set one bottle. Dr. Willis is ordering a small bowel follow-through with contrast today. Continue NG tube, n.p.o. status with IV fluid, and symptoms management. Continue Lopressor IV both scheduled and PRN for heart rate control. Continue to hold Eliquis for now because of the NG tube and because of the fact that surgery might eventually be indicated. Overall condition guarded. 02/23: Dr. Willis took patient to the OR on evening of 02/22 for ex lap with lysis of adhesion. Patient transferred to ICU after returning back from the OR. Patient intubated and mechanically ventilated with the following settings: volume AC, RR 18, Vt 500, PEEP 5, FiO2 30%. Fentanyl and Propofol drip. Cardizem drip. Levophed drip. D5 1/2NS w/ KCL 20mEq @125cc/hr. NPO. No ostomy bag output. Zosyn to cover any intra-abdominal infection. Daily sedation holiday for extubation trial. Overall condition extremely guarded 02/24: Patient was extubated yesterday afternoon. Fentanyl and propofol drip were off. Cardizem drip was also off. Patient is currently still on Levophed drip. NG tube in place with only minimal output. Ostomy bag no output. He is on 4 L/min nasal cannula oxygen. Patient has adequate urine output overnight. Patient is complaining of moderate pain around his abdominal incision sites. Continue D5 half NS with KCl 20 mEq at 125 cc/min. We will check with Dr. Willis regarding timing for feeding either enterically or TPN. Continue pain control with Ultram and and Dilaudid IV, respectively for different severity of pain. Continue Zosyn for coverage of any intra-abdominal infection. Overall condition still extremely guarded. Stay in ICU. Physical therapy evaluation and treatment. 02/25: Status post centerline placement with initiation of TPN yesterday. Levophed drip still running. Fever Tmax 38.0 overnight. Please refer to the flow sheet for NG, TENA, ostomy, and urine output. Currently on 7L/min nasal cannula oxygen. Patient is complaining of mild to moderate diffused abdominal pain. Mild shortness of breath. Denies any subjective fever, chills, or diaphoresis this morning. Reduced rate of normal saline continuous infusions from 75 cc/h to 50 cc/h. Checks x-ray to rule out pulmonary edema. Continue supplemental oxygen therapy. Continue TPN for nutritional support. Over Mab and Dilaudid for postsurgical pain controlled. Continue Zosyn while monitoring culture results. Rest of the post surgical management as per primary team. Physical therapy evaluation and treatment. Overall condition extremely guarded. Stay in ICU. 02/26: Patient ripped off his central line last evening. Dr. Mcfarland d/c NG tube last night. He is currently on Levophed drip 4mcg/min. Ostomy bag output went to the 5 cc overnight shift. Good urine output. He is on 3 L/min nasal cannula oxygen. Patient denies no pain in his abdomen. He denies any nausea or vomiting. He denies any shortness of breath. He is feeling good right now. He is tolerating sips with ice chips. We will check with general surgeon before advancing his diet. Transitions from IV Lopressor to oral metoprolol succinate for heart rate controlled. Continue to hold Eliquis until cleared by the surgeons. Continue Zosyn to cover any intra-abdominal infections. Continue to offer narcotics with Dilaudid and as needed for abdominal pain control. Overall condition is guarded. Stay in ICU. 02/27 Blood pressures still soft. Levophed off since last night. Maps greater than 65 maintaining. monitor urine output which is borderline low. Has had some liqui d stools. Levophed off since last night. Mild hypokalemia some short asymptomatic runs of V. tach 10 beats. Hypophosphatemia. 02/28 Trying to wean oxygen but still on 6 L. Question aspiration at some point versus fluid overload or HCAP. Patient does seem to be feeling better overall however. Blood pressure stable and restarting home beta-aniyah but will start at lower dose and titrate up. Does complain of a cough, relatively mild. Has chronic shortness of breath but no change. Review of Systems: Pertinent positives as above. Denies headache/fever/chills/nausea/vomiting/chest pain/cough/dyspnea/diarrhea. PHYSICAL EXAM General: Alert, Awake, No acute Distress Eyes/N/T: EOMI, no scleral icterus, Head/Neck: neck supple, full ROM, CV: irreg irreg, No murmurs, Pulm: Severely diminished on the left, mild wheeze/rales on right, nasal cannula in place Abd: soft, nontender, + BS x4, ostomy in place Ext: no clubbing/cyanosis/edema, nontender. Ventral abdominal surgical incision with wound vac in place, TENA drain in place, Ostomy bag in place Neuro: Alert, no focal deficits, moves all extremities, , sensations intact b/l upper/lower Psychiatric: Skin: warm/dry, normal color Constitutional Vitals: Vital Signs Temp Pulse Resp BP Pulse Ox O2 Del Method O2 Flow Rate 98 F 126 H 18 102/81 95 High Flow Nasal Cannula, Bubble Humidifier 6 02/27/23 16:00 02/28/23 07:01 02/28/23 07:01 02/28/23 07:01 02/28/23 07:01 02/28/23 07:01 02/28/23 07:01 Period Temp Pulse Resp BP Sys/Lovell Pulse Ox O2 Del Method O2 Flow Rate Last 24 Hr 98 F-98.8 F 75-126 0-30 56-111/35-85 80-100 High Flow Nasal Cannula, Bubble Humidifier-Nasal Cannula 2-6 Intake and Output 02/27/23 02/28/23 02/28/23 19:59 03:59 11:59 Intake Total 165 1115 170 Output Total 252 125 Balance -87 1115 45 Weight 63.412 kg Intake & Output: Intake & Output 02/27/23 02/28/23 02/28/23 19:59 03:59 11:59 Intake Total 165 1115 170 Output Total 252 125 Balance -87 1115 45 Weight 63.412 kg Intake: IV 165 1115 50 Dextrose 5%-1/2Ns W/20Meq KCl 1 1000 ,000 ml @ 50 mls/hr IV .Q20H [facility] Rx#:[id number] Zosyn 3.375 gm In Dextrose 5% 100 50 50 in Water 50 ml @ 100 mls/hr IV Q6H [facility] Rx#:[id number] Oral 120 Output: Drainage 105 Right Lower Abdomen TENA Drain 105 Urine Catheter Amount 97 125 Stool 50 Other: Urine Appearance Sediment Clear Uretheral (Michaels) Sediment Urine Color Dark Yellow Yellow Uretheral (Michaels) Dark Yellow [place] Stool Color Brown Stool Consistency Liquid OBJ DATA Labs 02/27/23 08:07 02/28/23 05:07 Labs: Abnormal Lab Results 02/28/23 02/27/23 02/27/23 05:07 08:07 05:03 RBC 3.60 L Hgb 11.5 L Hct 35.3 L RDW 18.1 H Lymphocytes % 8 L RBC Morphology Abnormal A Anisocytosis 1+ A Potassium 3.1 L 3.1 L Carbon Dioxide Anion Gap Creatinine Glucose Uric Acid 1.9 L 2.0 L Calcium 7.9 L 8.3 L Phosphorus 2.1 L Total Bilirubin 1.1 H Direct Bilirubin 0.4 H 0.5 H GGT 94 H 70 H Alkaline Phosphatase 182 H 142 H Lactate Dehydrogenase 284 H Total Protein 5.4 L 5.4 L Albumin 2.6 L 2.7 L Albumin/Globulin Ratio 0.9 L Prealbumin 7.7 L 02/26/23 02/25/23 05:17 05:34 RBC Hgb Hct RDW Lymphocytes % RBC Morphology Anisocytosis Potassium 3.1 L Carbon Dioxide 19 L Anion Gap 7.0 L Creatinine 0.6 L Glucose 129 H Uric Acid 1.9 L 2.4 L Calcium 8.1 L 8.3 L Phosphorus 1.7 L 1.6 L Total Bilirubin 1.3 H 1.1 H Direct Bilirubin 0.7 H 0.4 H GGT 66 H Alkaline Phosphatase Lactate Dehydrogenase 249 H 284 H Total Protein 5.8 L Albumin 2.6 L 2.8 L Albumin/Globulin Ratio 0.8 L 0.9 L Prealbumin Meds: Medications Albuterol/Ipratropium (Ipratropium/Albuterol 3 Ml Ampul.Neb) 3 ml NEB Q4HP PRN PRN Reason: Shortness Of Breath Atorvastatin Calcium (Atorvastatin 20 Mg Tablet) 20 mg PO QDAY [facility] Last Admin: 02/27/23 09:46 Dose: 20 mg Chlorhexidine Gluconate (Chlorhexidine Gluconate 1 Ml Oral.Yusra) 15 ml SWABMOUTH BID [facility] Last Admin: 02/27/23 21:09 Dose: 15 ml Dextrose (Dextrose 50% 50 Ml Vial) 0 ml IV UD PRN PRN Reason: Per Sliding Scale Diagnostic Test (Pha) (Accu-Chek 1 Each Strip) 1 each FS Q6 [facility] Last Admin: 02/28/23 06:00 Dose: 1 each Diphenhydramine HCl (Diphenhydramine 25 Mg Capsule) 25 mg PO HSP PRN PRN Reason: Insomnia Last Admin: 02/27/23 21:08 Dose: 25 mg Glucose (Dextrose 31 Gm Oral.Susp) 15 gm PO PRN PRN PRN Reason: Hypoglycemia Heparin Sodium (Porcine) (Heparin 5,000 Unit/Ml Vial) 5,000 unit SQ Q12 [facility] Last Admin: 02/27/23 21:08 Dose: 5,000 unit Hydromorphone HCl (Hydromorphone 0.5 Mg/0.5 Ml Syringe) 0.5 mg IV Q2HP PRN; Protocol PRN Reason: Per Pain Protocol Last Admin: 02/26/23 03:49 Dose: 0.5 mg Heparin Sodium/Sodium Chloride (Heparin/Ns) 500 mls @ 0 mls/hr IV .Q0M [facility]; Protocol Sodium Chloride (Sodium Chloride 0.9%) 250 mls @ 20 mls/hr IV .[id number] [facility] Last Admin: 02/28/23 05:56 Dose: Not Given Piperacillin Sod/Tazobactam (Sod 3.375 gm/ Dextrose) 50 mls @ 100 mls/hr IV Q6H [facility]; Protocol Last Infusion: 02/28/23 07:00 Dose: Infused Acetaminophen (Ofirmev) 650 mg in 65 mls @ 130 mls/hr IV Q6HP PRN; Protocol PRN Reason: PAIN/FEVER > 101 Last Infusion: 02/28/23 02:05 Dose: Infused Norepinephrine Bitartrate 8 mg (/ Sodium Chloride) 250 mls @ 18.75 mls/hr IV Q8H [facility]; Protocol Last Admin: 02/28/23 05:57 Dose: Not Given Potassium Chloride/Dextrose/Sod Cl (Dextrose 5%-1/2ns W/20meq Kcl) 1,000 mls @ 50 mls/hr IV .Q20H [facility] Last Admin: 02/28/23 01:30 Dose: 50 mls/hr Potassium Chloride 40 meq/ (Dextrose) 520 mls @ 130 mls/hr IV PRN PRN PRN Reason: Potassium < 3 Magnesium Sulfate (Magnesium Sulfate) 2 gm in 50 mls @ 50 mls/hr IV PRN PRN PRN Reason: Magnesium </+ 1.6 Insulin Human Lispro (Insulin Lispro 1 Unit/0.01 Ml Unit) 0 unit SQ Q6 [facility]; Protocol Last Admin: 02/28/23 06:42 Dose: Not Given Lidocaine (Lidocaine Patch) 1 patch TOPICAL DAILY@1000 [facility] Last Admin: 02/27/23 10:19 Dose: 1 patch Melatonin (Melatonin 3 Mg Tablet) 3 mg PO ONCE [facility] Last Admin: 02/27/23 21:08 Dose: 3 mg Metoclopramide HCl (Metoclopramide 10 Mg/2 Ml Vial) 5 mg IV Q12 [facility] Last Admin: 02/27/23 21:08 Dose: 5 mg Metoprolol Tartrate (Metoprolol Tartrate 5 Mg/5 Ml Vial) 5 mg IV Q2HP PRN PRN Reason: For a heart rate >110 Last Admin: 02/27/23 12:15 Dose: 5 mg Ondansetron HCl (Ondansetron 4 Mg/2 Ml Vial) 4 mg IV Q6HP PRN PRN Reason: Nausea And Vomiting Last Admin: 02/24/23 04:31 Dose: 4 mg Pantoprazole Sodium (Pantoprazole 40 Mg Vial) 40 mg IV QAMAC [facility] Last Admin: 02/27/23 07:21 Dose: 40 mg Potassium Chloride (Potassium Chloride 20 Meq Tablet) 40 meq PO PRN PRN PRN Reason: Potassium is 3-3.5 Potassium Chloride (Potassium Chloride 20 Meq Tablet) 40 meq PO PRN PRN PRN Reason: Potassium < 3 Sodium Chloride (0.9 % Sodium Chloride 10 Ml Syringe) 10 ml IV Q8 [facility] Last Admin: 02/28/23 06:43 Dose: 10 ml Sodium Chloride (0.9 % Sodium Chloride 10 Ml Syringe) 10 ml IV UD PRN PRN Reason: Wound Healing Sodium Chloride (0.9 % Sodium Chloride 10 Ml Syringe) 10 ml IV Q12 [facility] Last Admin: 02/27/23 21:17 Dose: Not Given Tamsulosin HCl (Tamsulosin 0.4 Mg Capsule) 0.4 mg PO QDAY [facility] Last Admin: 02/27/23 09:46 Dose: 0.4 mg ABG Interpretation ABG results: 02/23/23 14:39 ABG Methemoglobin 0.2 L VBG pH 7.45 H VBG pCO2 29.5 L VBG pO2 94.5 H VBG HCO3 20.0 L VBG Total CO2 20.9 L VBG O2 Saturation 88.5 H VBG Base Excess -3 L A/P Narrative A/P Narrative: A: *SBO: s/p Ex-lap 02/22 -per Surgeon *Acute on chronic hypoxic Respiratory Failure post-op: ?aspiration vs fluid overload vs HCAP less likely -Extubated 02/23 -now 6L HFNC *Hypovolemia with lactic acidosis: improved *Shock w/lactic acidosis: 2/2 above -on levophed off since last night *Acute delirium: improved *Hypokalemia/hypophosphatemia: *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 Willis for SBO -diet per surgery -IVF's stopped -empiric abx -iV lasix/albumin and f/u respiratory status -prn Nebs, IS/Acapella, RT -Monitor and replace electrolytes -Monitor renal function/UOP/ -restart BB at lower dose for soft BP -supp O2 as per home regimen, prn nebs, home IH's -Frequent reorientations during the day and protected sleep during the night, Deleriuma precautions, -pt/ot -restarted flomax -ppx: Heparin (hold apixaban for now, restart when ok with surgery) / ppi Time Spent With Patient Time: Total time spent is greater than 50% in coordination of care (as documented) at patient's floor/unit and/or counseling patient: Subsequent: Total time with patient: 50 - 65 Minutes QUALITY Stroke Symptom Onset Unknown: No VTE Deep Vein Thrombosis/Pulmonary Embolism Present on Admission: No Restraints Restraint In Place: No
[2023-02-28] MEDS: PANTOPRAZOLE 40 MG VIAL IV SCH (07:39)
--- NOTE | 2023-02-28 08:11 | XRay Report ---
HISTORY: Follow-up pulmonary infiltrates FINDINGS: There are consolidating infiltrates in the lower half of both lungs. These have slowly but progressively become worse over the past several days. The greatest progression is in the middle third of the right lung. There is relative sparing of the lung apices. Patient has known underlying severe emphysema in both upper lobes, demonstrated on prior CT scan. There may be tiny bilateral pleural effusions. No pneumothorax is present and there is no evidence of free intra-abdominal air. Heart size is borderline enlarged but magnified by portable technique. Pulmonary vessels cannot be evaluated. IMPRESSION: Slowly but progressively worsening infiltrates in both lungs Interpreted and Authenticated by: Ricky Wang 02/28/23
[2023-02-28] MEDS ORDERED: ALBUMIN HUMAN 12.5 GM/50 ML VIAL IV ONE (08:52)
[2023-02-28] MEDS ORDERED: FUROSEMIDE 40 MG/4 ML VIAL IV ONE (08:52)
[2023-02-28] MEDS: METOCLOPRAMIDE 10 MG/2 ML VIAL IV SCH ×2 (09:47→20:20)
[2023-02-28] MEDS: TAMSULOSIN 0.4 MG CAPSULE PO SCH (09:47)
[2023-02-28] MEDS: HEPARIN 5,000 UNIT/ML VIAL SQ SCH ×2 (09:47→20:21)
[2023-02-28] MEDS: ATORVASTATIN 20 MG TABLET PO SCH (09:49)
[2023-02-28] MEDS: METOPROLOL SUCCINATE 25 MG TAB.XL.24H PO SCH (09:50)
[2023-02-28] MEDS: POTASSIUM CHLORIDE 20 MEQ TABLET PO PRN (10:13)
[2023-02-28] MEDS: LIDOCAINE PATCH TOPICAL SCH (10:14)
--- NOTE | 2023-02-28 15:41 | General Surgery Progress Note ---
SUBJECTIVE Subjective Patient information: Note initiated : 02/28/23 at 3:40 pm Service Date, if different from initiated Date: [] Patient: Fei Rodrigues 87 y/o M admitted on 02/19/23 for abdominal pain/nausea. Chief Complaint: [] Principal diagnosis: Small bowel obstruction Interval history: Patient continues tolerat p.o. diet. Doing very well from a surgical standpoint. Constitutional Vitals: Vital Signs Temp Pulse Resp BP Pulse Ox O2 Del Method O2 Flow Rate 98.8 F 105 H 15 114/91 92 Oxymask, Bubble Humidifier 2 02/28/23 12:23 02/28/23 15:19 02/28/23 15:19 02/28/23 14:00 02/28/23 15:19 02/28/23 13:00 02/28/23 13:00 Period Temp Pulse Resp BP Sys/Lovell Pulse Ox O2 Del Method O2 Flow Rate Last 24 Hr 98 F-99.1 F 85-136 0-29 56-114/35-91 80-100 High Flow Nasal Cannula, Bubble Humidifier-Oxymask, Bubble Humidifier 2-8 Intake and Output 02/28/23 02/28/23 02/28/23 03:59 11:59 19:59 Intake Total 1355 700 290 Output Total 585 1223 2040 Balance 770 -523 -1750 Weight 139 lb 12.8 oz Intake & Output: Intake & Output 02/28/23 02/28/23 02/28/23 03:59 11:59 19:59 Intake Total 1355 700 290 Output Total 585 1223 2040 Balance 770 -523 -1750 Weight 139 lb 12.8 oz Intake: Nourishment/Supplement quantity 120 240 (ml) IV 1115 100 50 Dextrose 5%-1/2Ns W/20Meq KCl 1 1000 ,000 ml @ 50 mls/hr IV .Q20H [facility] Rx#:[id number] Levophed 8 mg In Sodium 0 Chloride 0.9% 242 ml @ 10 MCG/ MIN 18.75 mls/hr IV Q8H [facility] Rx# :[id number] Zosyn 3.375 gm In Dextrose 5% 50 50 50 in Water 50 ml @ 100 mls/hr IV Q6H [facility] Rx#:[id number] Oral 120 360 240 Output: Drainage 60 130 40 Right Lower Abdomen TENA Drain 60 130 40 Urine Catheter Amount 391 851 1624 Stool 125 220 Other: Meal Breakfast Lunch Percent of Meal Consumed 50% No food Feeding Ability Assist with Tray Set Up Assist with Tray Set Up Nourishment/Supplement name Ensure Plus Vanilla Ensure Ensure Urine Appearance Clear Clear Clear Uretheral ([place]aels) Clear Urine Color Yellow Light Natalya Yellow [place] Uretheral ([place]aels) Yellow Light Natalya [place] Urine Odor Normal Stool Color Brown Brown Green Stool Consistency Liquid Liquid Exam: sleepy but conversant, no obvious toxicity or distress GI/Abdominal Additional comments: soft and non distended, non tender, VAC in place, drain non enteric, non purulent sero sang. A/P Assessment and plan (1) Small bowel obstruction: Plan: Doing very well from a surgical standpoint. Diet as tolerated. TENA drain out tomorrow. Status: Acute Time Spent With Patient Time: Total time spent is greater than 50% in coordination of care (as documented) at patient's floor/unit and/or counseling patient:
[2023-02-28] MEDS: MELATONIN 3 MG TABLET PO SCH (20:21)
[2023-03-01] MEDS: 0.9 % SODIUM CHLORIDE 10 ML SYRINGE IV SCH ×3 (05:32→20:23)
[2023-03-01] MEDS: INSULIN LISPRO 1 UNIT/0.01 ML UNIT SQ SCH ×3 (05:32→17:14)
[2023-03-01 06:57] LABS: Basophils # (Auto) 0.04 K/mcL (0.00-0.30); Basophils % (Auto) 0.3 % (0.0-2.0); Eosinophils # (Auto) 0.32 K/mcL (0.00-0.70); Eosinophils % (Auto) 2.7 % (0.0-7.0); Hematocrit 32.6 % (40.1-51.0); Hemoglobin 10.4 g/dL (13.7-17.5); Lymphocytes # (Auto) 0.82 K/mcL (1.50-4.80); Lymphocytes % (Auto) 6.8 % (15.5-49.0); Mean Cell Volume 91.8 fL (80.0-100.0); Mean Corpuscular HGB Conc 31.9 g/dL (31.0-36.0); Mean Platelet Volume 10.6 fL (8.8-12.5); Monocytes # (Auto) 0.97 K/mcL (0.10-0.90); Monocytes % (Auto) 8.1 % (1.0-12.0); Neutrophils % (Auto) 81.2 % (38.0-78.0); Platelet Count 253 K/mcL (140-440); RBC 3.55 M/mcL (4.63-6.08); Red Cell Distribution Width 16.2 % (11.5-14.5)
--- NOTE | 2023-03-01 08:07 | Internal Med Progress Note ---
SUBJECTIVE Subjective Patient information: Note initiated : 03/01/23 at 8:04 am Service Date, if different from initiated Date: [] Patient: Fei Rodrigues 87 y/o M admitted on 02/19/23 for abdominal pain/nausea. Chief Complaint: [] Principal diagnosis: Small bowel obstruction Interval history: HPI: Patient presents the ED with nausea vomiting and abdominal pain overnight. Patient's had small bowel obstruction in the past and stated that it felt very similar. 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 Follows with Dr. Mcfarland and Dr. Cohen. Patient denies chest pain or shortness of breath. Patient states that he had developing nausea vomiting and crampy abdominal pain started 1 to 2 days ago. Patient denies chest pain shortness of breath coughing. Also had an episode of A-fib RVR in the ED and was given diltiazem with improvement. Patient does have history of atrial fibrillation. Case is discussed with Dr. Willis and patient was thus admitted. Currently n.p.o. with NG tube in place. 02/20 Patient having bowel movements overnight. Patient did have a little bit of nausea vomiting. Abdominal pain improving. Heart rate in the 90s. 02/21: Patient was agitated and pulled his NG tube/ IV access overnight. Now the NG tube and IV access were replaced. Hand mittens on. There was no bowel movement overnight. Continue NG tube, n.p.o. status with IV fluid, and symptoms management. Continue Lopressor IV both scheduled and PRN for heart rate control. Continue to hold Eliquis for now because of the NG tube and because of the fact that surgery might eventually be indicated. Overall condition guarded. 02/22: Still does not have a bowel movement overnight. Patient is on 2L/min oxygen. Initial blood culture grew Leuconostoc species in one set one bottle. Dr. Willis is ordering a small bowel follow-through with contrast today. Continue NG tube, n.p.o. status with IV fluid, and symptoms management. Continue Lopressor IV both scheduled and PRN for heart rate control. Continue to hold Eliquis for now because of the NG tube and because of the fact that surgery might eventually be indicated. Overall condition guarded. 02/23: Dr. Willis took patient to the OR on evening of 02/22 for ex lap with lysis of adhesion. Patient transferred to ICU after returning back from the OR. Patient intubated and mechanically ventilated with the following settings: volume AC, RR 18, Vt 500, PEEP 5, FiO2 30%. Fentanyl and Propofol drip. Cardizem drip. Levophed drip. D5 1/2NS w/ KCL 20mEq @125cc/hr. NPO. No ostomy bag output. Zosyn to cover any intra-abdominal infection. Daily sedation holiday for extubation trial. Overall condition extremely guarded 02/24: Patient was extubated yesterday afternoon. Fentanyl and propofol drip were off. Cardizem drip was also off. Patient is currently still on Levophed drip. NG tube in place with only minimal output. Ostomy bag no output. He is on 4 L/min nasal cannula oxygen. Patient has adequate urine output overnight. Patient is complaining of moderate pain around his abdominal incision sites. Continue D5 half NS with KCl 20 mEq at 125 cc/min. We will check with Dr. Willis regarding timing for feeding either enterically or TPN. Continue pain control with Ultram and and Dilaudid IV, respectively for different severity of pain. Continue Zosyn for coverage of any intra-abdominal infection. Overall condition still extremely guarded. Stay in ICU. Physical therapy evaluation and treatment. 02/25: Status post centerline placement with initiation of TPN yesterday. Levophed drip still running. Fever Tmax 38.0 overnight. Please refer to the flow sheet for NG, TENA, ostomy, and urine output. Currently on 7L/min nasal cannula oxygen. Patient is complaining of mild to moderate diffused abdominal pain. Mild shortness of breath. Denies any subjective fever, chills, or diaphoresis this morning. Reduced rate of normal saline continuous infusions from 75 cc/h to 50 cc/h. Checks x-ray to rule out pulmonary edema. Continue supplemental oxygen therapy. Continue TPN for nutritional support. Over Mab and Dilaudid for postsurgical pain controlled. Continue Zosyn while monitoring culture results. Rest of the post surgical management as per primary team. Physical therapy evaluation and treatment. Overall condition extremely guarded. Stay in ICU. 02/26: Patient ripped off his central line last evening. Dr. Mcfarland d/c NG tube last night. He is currently on Levophed drip 4mcg/min. Ostomy bag output went to the 5 cc overnight shift. Good urine output. He is on 3 L/min nasal cannula oxygen. Patient denies no pain in his abdomen. He denies any nausea or vomiting. He denies any shortness of breath. He is feeling good right now. He is tolerating sips with ice chips. We will check with general surgeon before advancing his diet. Transitions from IV Lopressor to oral metoprolol succinate for heart rate controlled. Continue to hold Eliquis until cleared by the surgeons. Continue Zosyn to cover any intra-abdominal infections. Continue to offer narcotics with Dilaudid and as needed for abdominal pain control. Overall condition is guarded. Stay in ICU. 02/27 Blood pressures still soft. Levophed off since last night. Maps greater than 65 maintaining. monitor urine output which is borderline low. Has had some liqui d stools. Levophed off since last night. Mild hypokalemia some short asymptomatic runs of V. tach 10 beats. Hypophosphatemia. 02/28 Trying to wean oxygen but still on 6 L. Question aspiration at some point versus fluid overload or HCAP. Patient does seem to be feeling better overall however. Blood pressure stable and restarting home beta-aniyah but will start at lower dose and titrate up. Does complain of a cough, relatively mild. Has chronic shortness of breath but no change. 03/01 Patient seen for feeling better. On 4 L nasal cannula overnight. No nausea vomiting. Tolerating oral diet. Leukocytosis noted on labs, check manual differential, patient afebrile. Chemistry pending Review of Systems: Pertinent positives as above. Denies headache/fever/chills/nausea/vomiting/chest pain/cough/dyspnea/diarrhea. PHYSICAL EXAM General: Alert, Awake, No acute Distress Eyes/N/T: EOMI, no scleral icterus, Head/Neck: neck supple, full ROM, CV: mildy tachy and irreg irreg, No murmurs, Pulm: diminished on the left, decreased wheeze/rales on right, nasal cannula in place Abd: soft, nontender, + BS x4, ostomy in place Ext: no clubbing/cyanosis/edema, nontender. Ventral abdominal surgical incision with wound vac in place, Ostomy bag in place Neuro: Alert, no focal deficits, moves all extremities, , sensations intact b/l upper/lower Psychiatric: Skin: warm/dry, normal color Constitutional Vitals: Vital Signs Temp Pulse Resp BP Pulse Ox O2 Del Method O2 Flow Rate 99.0 F 92 H 20 102/67 94 Nasal Cannula 4 03/01/23 04:00 03/01/23 06:01 03/01/23 06:01 03/01/23 06:01 03/01/23 06:01 03/01/23 06:05 03/01/23 06:05 Period Temp Pulse Resp BP Sys/Lovell Pulse Ox O2 Del Method O2 Flow Rate Last 24 Hr 98.7 F-99.6 F 92-136 14-29 81-114/59-91 85-95 High Flow Nasal Cannula, Bubble Humidifier-Oxymask, Bubble Humidifier 2-6 Intake and Output 02/28/23 03/01/23 03/01/23 19:59 03:59 11:59 Intake Total 560 120 Output Total 2650 430 42 Balance -[id number] -42 Weight 62.006 kg Intake & Output: Intake & Output 02/28/23 03/01/23 03/01/23 19:59 03:59 11:59 Intake Total 560 120 Output Total 2650 430 42 Balance -[id number] -42 Weight 62.006 kg Intake: Nourishment/Supplement quantity 50 (ml) IV 100 Levophed 8 mg In Sodium 0 Chloride 0.9% 242 ml @ 10 MCG/ MIN 18.75 mls/hr IV Q8H [facility] Rx# :[id number] Zosyn 3.375 gm In Dextrose 5% 100 in Water 50 ml @ 100 mls/hr IV Q6H [facility] Rx#:[id number] Oral 410 120 Output: Drainage 100 Right Lower Abdomen TENA Drain 100 Drainage 40 Right Lower Abdomen TENA Drain 40 Urine Catheter Amount 2410 230 42 Stool 200 100 Other: Meal Dinner Percent of Meal Consumed 50% Feeding Ability Assist with Tray Set Up Nourishment/Supplement name Ensure Urine Appearance Clear Clear Clear Uretheral (Michaels) Clear Urine Color Dark Yellow Dark Yellow Light Natalya Uretheral (Michaels) Dark Yellow Urine Odor Normal Stool Color Brown Stool Consistency Liquid # Bowel Movements 1 1 OBJ DATA Labs 03/01/23 05:29 03/01/23 08:55 Labs: Abnormal Lab Results 03/01/23 02/28/23 02/27/23 05:29 05:07 08:07 WBC 12.0 H RBC 3.55 L 3.60 L Hgb 10.4 L 11.5 L Hct 32.6 L 35.3 L RDW 16.2 H 18.1 H Immature Gran % (Auto) 0.9 H Neut % (Auto) 81.2 H Lymph % (Auto) 6.8 L Lymph # (Auto) 0.82 L [place] # (Auto) 0.97 H Lymphocytes % 8 L Immature Gran # 0.11 H Absolute Neutrophils 9.76 H RBC Morphology Abnormal A Anisocytosis 1+ A Potassium 3.1 L Uric Acid 1.9 L Calcium 7.9 L Phosphorus Total Bilirubin Direct Bilirubin 0.4 H GGT 94 H Alkaline Phosphatase 182 H Lactate Dehydrogenase Total Protein 5.4 L Albumin 2.6 L Albumin/Globulin Ratio 0.9 L Prealbumin 02/27/23 05:03 WBC RBC Hgb Hct RDW Immature Gran % (Auto) Neut % (Auto) Lymph % (Auto) Lymph # (Auto) [place] # (Auto) Lymphocytes % Immature Gran # Absolute Neutrophils RBC Morphology Anisocytosis Potassium 3.1 L Uric Acid 2.0 L Calcium 8.3 L Phosphorus 2.1 L Total Bilirubin 1.1 H Direct Bilirubin 0.5 H GGT 70 H Alkaline Phosphatase 142 H Lactate Dehydrogenase 284 H Total Protein 5.4 L Albumin 2.7 L Albumin/Globulin Ratio Prealbumin 7.7 L Meds: Medications Albuterol/Ipratropium (Ipratropium/Albuterol 3 Ml Ampul.Neb) 3 ml NEB Q4HP PRN PRN Reason: Shortness Of Breath Atorvastatin Calcium (Atorvastatin 20 Mg Tablet) 20 mg PO QDAY [facility] Last Admin: 02/28/23 09:49 Dose: 20 mg Dextrose (Dextrose 50% 50 Ml Vial) 0 ml IV UD PRN PRN Reason: Per Sliding Scale Diagnostic Test (Pha) (Accu-Chek 1 Each Strip) 1 each FS Q6 [facility] Last Admin: 03/01/23 05:32 Dose: 1 each Diphenhydramine HCl (Diphenhydramine 25 Mg Capsule) 25 mg PO HSP PRN PRN Reason: Insomnia Last Admin: 02/27/23 21:08 Dose: 25 mg Glucose (Dextrose 31 Gm Oral.Susp) 15 gm PO PRN PRN PRN Reason: Hypoglycemia Heparin Sodium (Porcine) (Heparin 5,000 Unit/Ml Vial) 5,000 unit SQ Q12 [facility] Last Admin: 02/28/23 20:21 Dose: 5,000 unit Hydromorphone HCl (Hydromorphone 0.5 Mg/0.5 Ml Syringe) 0.5 mg IV Q2HP PRN; Protocol PRN Reason: Per Pain Protocol Last Admin: 02/26/23 03:49 Dose: 0.5 mg Heparin Sodium/Sodium Chloride (Heparin/Ns) 500 mls @ 0 mls/hr IV .Q0M [facility]; Protocol Acetaminophen (Ofirmev) 650 mg in 65 mls @ 130 mls/hr IV Q6HP PRN; Protocol PRN Reason: PAIN/FEVER > 101 Last Infusion: 02/28/23 02:05 Dose: Infused Potassium Chloride 40 meq/ (Dextrose) 520 mls @ 130 mls/hr IV PRN PRN PRN Reason: Potassium < 3 Magnesium Sulfate (Magnesium Sulfate) 2 gm in 50 mls @ 50 mls/hr IV PRN PRN PRN Reason: Magnesium </+ 1.6 Insulin Human Lispro (Insulin Lispro 1 Unit/0.01 Ml Unit) 0 unit SQ Q6 [facility]; Protocol Last Admin: 03/01/23 05:32 Dose: Not Given Lidocaine (Lidocaine Patch) 1 patch TOPICAL DAILY@1000 [facility] Last Admin: 02/28/23 10:14 Dose: Not Given Melatonin (Melatonin 3 Mg Tablet) 3 mg PO QPM@1900 [facility] Last Admin: 02/28/23 20:21 Dose: 3 mg Metoclopramide HCl (Metoclopramide 10 Mg/2 Ml Vial) 5 mg IV Q12 [facility] Last Admin: 02/28/23 20:20 Dose: 5 mg Metoprolol Succinate (Metoprolol Succinate 25 Mg Tab.Xl.24h) 25 mg PO DAILY [facility] Last Admin: 02/28/23 09:50 Dose: Not Given Metoprolol Tartrate (Metoprolol Tartrate 5 Mg/5 Ml Vial) 5 mg IV Q2HP PRN PRN Reason: For a heart rate >110 Last Admin: 02/27/23 12:15 Dose: 5 mg Ondansetron HCl (Ondansetron 4 Mg/2 Ml Vial) 4 mg IV Q6HP PRN PRN Reason: Nausea And Vomiting Last Admin: 02/24/23 04:31 Dose: 4 mg Pantoprazole Sodium (Pantoprazole 40 Mg Tablet) 40 mg PO QAMAC [facility] Potassium Chloride (Potassium Chloride 20 Meq Tablet) 40 meq PO PRN PRN PRN Reason: Potassium is 3-3.5 Last Admin: 02/28/23 10:13 Dose: 40 meq Potassium Chloride (Potassium Chloride 20 Meq Tablet) 40 meq PO PRN PRN PRN Reason: Potassium < 3 Sodium Chloride (0.9 % Sodium Chloride 10 Ml Syringe) 10 ml IV Q8 [facility] Last Admin: 03/01/23 05:32 Dose: 10 ml Sodium Chloride (0.9 % Sodium Chloride 10 Ml Syringe) 10 ml IV UD PRN PRN Reason: Wound Healing Tamsulosin HCl (Tamsulosin 0.4 Mg Capsule) 0.4 mg PO QDAY [facility] Last Admin: 02/28/23 09:47 Dose: 0.4 mg ABG Interpretation ABG results: 02/23/23 14:39 ABG Methemoglobin 0.2 L VBG pH 7.45 H VBG pCO2 29.5 L VBG pO2 94.5 H VBG HCO3 20.0 L VBG Total CO2 20.9 L VBG O2 Saturation 88.5 H VBG Base Excess -3 L A/P Narrative A/P Narrative: A: *SBO: s/p Ex-lap 02/22 -per Surgeon *Acute on chronic hypoxic Respiratory Failure post-op: ?aspiration vs suspected fluid overload vs HCAP less likely -Extubated 02/23 -down to 4L NC *Hypovolemia with lactic acidosis: improved *Shock w/lactic acidosis: 2/2 above -resolved *Acute delirium: improved *Hypokalemia/hypophosphatemia: *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 Willis for SBO -diet per surgery -empiric abx d/c -iV lasix/albumin x1 today and f/u respiratory status and cxr -prn Nebs, IS/Acapella, RT -Monitor and replace electrolytes -Monitor renal function/UOP/ -restart BB at lower dose for soft BP -supp O2 as per home regimen, prn nebs, home IH's -Frequent reorientations during the day and protected sleep during the night, Deleriuma precautions, -pt/ot -restarted flomax -ppx: Heparin (hold apixaban for now, restart when ok with surgery) / ppi Time Spent With Patient Time: Total time spent is greater than 50% in coordination of care (as documented) at patient's floor/unit and/or counseling patient: Subsequent: Total time with patient: 50 - 65 Minutes QUALITY Stroke Symptom Onset Unknown: No VTE Deep Vein Thrombosis/Pulmonary Embolism Present on Admission: No Restraints Restraint In Place: No
[2023-03-01] MEDS ORDERED: FUROSEMIDE 40 MG/4 ML VIAL IV SCH (08:08)
[2023-03-01] MEDS ORDERED: ALBUMIN HUMAN 12.5 GM/50 ML VIAL IV SCH (08:08)
--- NOTE | 2023-03-01 08:19 | General Surgery Progress Note ---
SUBJECTIVE Subjective Patient information: Note initiated : 03/01/23 at 8:14 am Service Date, if different from initiated Date: [] Patient: Fei Rodrigues 87 y/o M admitted on 02/19/23 for abdominal pain/nausea. Chief Complaint: [] Principal diagnosis: Small bowel obstruction Interval history: Status post exploratory laparotomy with extensive lysis of adhesions. Patient has full return of bowel function now, clear to advance diet as tolerated appreciate medicine help with medical issues. Constitutional Vitals: Vital Signs Temp Pulse Resp BP Pulse Ox O2 Del Method O2 Flow Rate 99.0 F 92 H 20 102/67 94 Nasal Cannula 4 03/01/23 04:00 03/01/23 06:01 03/01/23 06:01 03/01/23 06:01 03/01/23 06:01 03/01/23 06:05 03/01/23 06:05 Period Temp Pulse Resp BP Sys/Lovell Pulse Ox O2 Del Method O2 Flow Rate Last 24 Hr 98.7 F-99.6 F 92-136 14-29 81-114/59-91 85-95 High Flow Nasal Cannula, Bubble Humidifier-Oxymask, Bubble Humidifier 2-6 Intake and Output 02/28/23 03/01/23 03/01/23 19:59 03:59 11:59 Intake Total 560 120 Output Total 2650 430 42 Balance -2089 -310 -42 Weight 136 lb 11.2 oz Intake & Output: Intake & Output 02/28/23 03/01/23 03/01/23 19:59 03:59 11:59 Intake Total 560 120 Output Total 2650 430 42 Balance -2089 -310 -42 Weight 136 lb 11.2 oz Intake: Nourishment/Supplement quantity 50 (ml) IV 100 Levophed 8 mg In Sodium 0 Chloride 0.9% 242 ml @ 10 MCG/ MIN 18.75 mls/hr IV Q8H [facility] Rx# :[id number] Zosyn 3.375 gm In Dextrose 5% 100 in Water 50 ml @ 100 mls/hr IV Q6H [facility] Rx#:[id number] Oral 410 120 Output: Drainage 100 Right Lower Abdomen TENA Drain 100 Drainage 40 Right Lower Abdomen TENA Drain 40 Urine Catheter Amount 2410 230 42 Stool 200 100 Other: Meal Dinner Percent of Meal Consumed 50% Feeding Ability Assist with Tray Set Up Nourishment/Supplement name Ensure Urine Appearance Clear Clear Clear Uretheral ([place]aels) Clear Urine Color Dark Yellow Dark Yellow Light Natalya Uretheral ([place]aels) Dark Yellow Urine Odor Normal Stool Color Brown Stool Consistency Liquid # Bowel Movements 1 1 Exam: sleepy but conversant, no obvious toxicity or distress GI/Abdominal Additional comments: soft and non distended, non tender, Prevena wound care dressing removed. TENA drain removed. A/P Assessment and plan (1) Small bowel obstruction: Status: Acute Plan Doing very well from a surgical standpoint. Clear to change to all p.o. medications, advance diet as tolerated, anticipate need for [facility] facility. Time Spent With Patient Time: Total time spent is greater than 50% in coordination of care (as documented) at patient's floor/unit and/or counseling patient:
[2023-03-01] MEDS: METOPROLOL SUCCINATE 25 MG TAB.XL.24H PO SCH (09:00)
[2023-03-01] MEDS: LIDOCAINE PATCH TOPICAL SCH (09:02)
[2023-03-01] MEDS: TAMSULOSIN 0.4 MG CAPSULE PO SCH (09:03)
[2023-03-01] MEDS: METOCLOPRAMIDE 10 MG/2 ML VIAL IV SCH ×2 (09:03→20:23)
[2023-03-01] MEDS: HEPARIN 5,000 UNIT/ML VIAL SQ SCH ×2 (09:03→20:23)
[2023-03-01] MEDS: ATORVASTATIN 20 MG TABLET PO SCH (09:04)
[2023-03-01] MEDS: PANTOPRAZOLE 40 MG TABLET PO SCH (09:05)
--- NOTE | 2023-03-01 09:33 | XRay Report ---
HISTORY: Follow-up pulmonary infiltrates after diuresis FINDINGS: Moderate diffuse infiltrates are again seen throughout both lungs with the greatest consolidation in the middle third of the right lung. There has been mild improvement bilaterally since 02/28/23. There is mild blunting of the right costophrenic sulcus consistent with a very small pleural effusion. The heart is borderline enlarged and remain stable. Pacemaker remains in good position. IMPRESSION: Slowly improving diffuse infiltrates in both lungs. Although there may be an element of pulmonary vascular congestion, the relative lack of response to diuretics suggest this is more likely due to an inflammatory process. Interpreted and Authenticated by: Ricky Wang 03/01/23
[2023-03-01 09:51] LABS: ALT/SGPT 22 U/L (<40); AST/SGOT 20 U/L (<40); Albumin 2.9 gm/dL (3.2-5.2); Alkaline Phosphatase 200 U/L (39-117); Bilirubin,Direct 0.3 mg/dL (<0.3); Bilirubin,Total 0.8 mg/dL (0.1-1.0); Blood Urea Nitrogen 15 mg/dL (8-23); Calcium 8.4 mg/dL (8.6-10.4); Carbon Dioxide 24 mmol/L (22-30); Chloride 106 mmol/L (96-108); Glomerular Filtration Rate 85; Glucose 89 mg/dL (70-105); Lactate Dehydrogenase 241 U/L (135-225); Triglycerides 83 mg/dL (<150); Uric Acid 2.4 mg/dL (2.5-8.0)
[2023-03-01] MEDS: POTASSIUM CHLORIDE 20 MEQ TABLET PO PRN (11:28)
[2023-03-01 11:29] LABS: Anisocytosis 1+ (None Seen); Eosinophils % (Manual) 2 % (0-7); Lymphocytes % 6 % (15-49); Monocytes % (Manual) 9 % (1-12); Ovalocytes FEW (None Seen); Platelet Estimate NORMAL (Normal); Polychromasia FEW (None Seen); RBC Morphology ABNORMAL (Normal); Segmented Neutrophils % 83 % (38-78)
[2023-03-01] MEDS: METOPROLOL TARTRATE 5 MG/5 ML VIAL IV PRN (19:17)
[2023-03-01] MEDS: MELATONIN 3 MG TABLET PO SCH (20:23)
[2023-03-02] MEDS: diphenhydrAMINE 25 MG CAPSULE PO PRN (00:37)
[2023-03-02] MEDS: INSULIN LISPRO 1 UNIT/0.01 ML UNIT SQ SCH ×2 (00:37→05:37)
[2023-03-02] MEDS: 0.9 % SODIUM CHLORIDE 10 ML SYRINGE IV SCH ×3 (05:37→20:16)
[2023-03-02] MEDS: PANTOPRAZOLE 40 MG TABLET PO SCH (07:14)
[2023-03-02 07:17] LABS: Basophils # (Auto) 0.03 K/mcL (0.00-0.30); Basophils % (Auto) 0.2 % (0.0-2.0); Eosinophils # (Auto) 0.34 K/mcL (0.00-0.70); Eosinophils % (Auto) 2.7 % (0.0-7.0); Hematocrit 32.5 % (40.1-51.0); Hemoglobin 10.4 g/dL (13.7-17.5); Lymphocytes # (Auto) 0.94 K/mcL (1.50-4.80); Lymphocytes % (Auto) 7.4 % (15.5-49.0); Mean Platelet Volume 10.1 fL (8.8-12.5); Monocytes # (Auto) 0.93 K/mcL (0.10-0.90); Monocytes % (Auto) 7.3 % (1.0-12.0); Neutrophils % (Auto) 81.4 % (38.0-78.0); Platelet Count 297 K/mcL (140-440); RBC 3.57 M/mcL (4.63-6.08); Red Cell Distribution Width 16.1 % (11.5-14.5); WBC 12.7 K/mcL (4.5-11.0)
--- NOTE | 2023-03-02 07:47 | Internal Med Progress Note ---
SUBJECTIVE Subjective Patient information: Note initiated : 03/02/23 at 7:42 am Service Date, if different from initiated Date: [] Patient: Fei Rodrigues 87 y/o M admitted on 02/19/23 for abdominal pain/nausea. Chief Complaint: [] Principal diagnosis: Small bowel obstruction Interval history: HPI: Patient presents the ED with nausea vomiting and abdominal pain overnight. Patient's had small bowel obstruction in the past and stated that it felt very similar. 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 Follows with Dr. Mcfarland and Dr. Cohen. Patient denies chest pain or shortness of breath. Patient states that he had developing nausea vomiting and crampy abdominal pain started 1 to 2 days ago. Patient denies chest pain shortness of breath coughing. Also had an episode of A-fib RVR in the ED and was given diltiazem with improvement. Patient does have history of atrial fibrillation. Case is discussed with Dr. Willis and patient was thus admitted. Currently n.p.o. with NG tube in place. 02/20 Patient having bowel movements overnight. Patient did have a little bit of nausea vomiting. Abdominal pain improving. Heart rate in the 90s. 02/21: Patient was agitated and pulled his NG tube/ IV access overnight. Now the NG tube and IV access were replaced. Hand mittens on. There was no bowel movement overnight. Continue NG tube, n.p.o. status with IV fluid, and symptoms management. Continue Lopressor IV both scheduled and PRN for heart rate control. Continue to hold Eliquis for now because of the NG tube and because of the fact that surgery might eventually be indicated. Overall condition guarded. 02/22: Still does not have a bowel movement overnight. Patient is on 2L/min oxygen. Initial blood culture grew Leuconostoc species in one set one bottle. Dr. Willis is ordering a small bowel follow-through with contrast today. Continue NG tube, n.p.o. status with IV fluid, and symptoms management. Continue Lopressor IV both scheduled and PRN for heart rate control. Continue to hold Eliquis for now because of the NG tube and because of the fact that surgery might eventually be indicated. Overall condition guarded. 02/23: Dr. Willis took patient to the OR on evening of 02/22 for ex lap with lysis of adhesion. Patient transferred to ICU after returning back from the OR. Patient intubated and mechanically ventilated with the following settings: volume AC, RR 18, Vt 500, PEEP 5, FiO2 30%. Fentanyl and Propofol drip. Cardizem drip. Levophed drip. D5 1/2NS w/ KCL 20mEq @125cc/hr. NPO. No ostomy bag output. Zosyn to cover any intra-abdominal infection. Daily sedation holiday for extubation trial. Overall condition extremely guarded 02/24: Patient was extubated yesterday afternoon. Fentanyl and propofol drip were off. Cardizem drip was also off. Patient is currently still on Levophed drip. NG tube in place with only minimal output. Ostomy bag no output. He is on 4 L/min nasal cannula oxygen. Patient has adequate urine output overnight. Patient is complaining of moderate pain around his abdominal incision sites. Continue D5 half NS with KCl 20 mEq at 125 cc/min. We will check with Dr. Willis regarding timing for feeding either enterically or TPN. Continue pain control with Ultram and and Dilaudid IV, respectively for different severity of pain. Continue Zosyn for coverage of any intra-abdominal infection. Overall condition still extremely guarded. Stay in ICU. Physical therapy evaluation and treatment. 02/25: Status post centerline placement with initiation of TPN yesterday. Levophed drip still running. Fever Tmax 38.0 overnight. Please refer to the flow sheet for NG, TENA, ostomy, and urine output. Currently on 7L/min nasal cannula oxygen. Patient is complaining of mild to moderate diffused abdominal pain. Mild shortness of breath. Denies any subjective fever, chills, or diaphoresis this morning. Reduced rate of normal saline continuous infusions from 75 cc/h to 50 cc/h. Checks x-ray to rule out pulmonary edema. Continue supplemental oxygen therapy. Continue TPN for nutritional support. Over Mab and Dilaudid for postsurgical pain controlled. Continue Zosyn while monitoring culture results. Rest of the post surgical management as per primary team. Physical therapy evaluation and treatment. Overall condition extremely guarded. Stay in ICU. 02/26: Patient ripped off his central line last evening. Dr. Mcfarland d/c NG tube last night. He is currently on Levophed drip 4mcg/min. Ostomy bag output went to the 5 cc overnight shift. Good urine output. He is on 3 L/min nasal cannula oxygen. Patient denies no pain in his abdomen. He denies any nausea or vomiting. He denies any shortness of breath. He is feeling good right now. He is tolerating sips with ice chips. We will check with general surgeon before advancing his diet. Transitions from IV Lopressor to oral metoprolol succinate for heart rate controlled. Continue to hold Eliquis until cleared by the surgeons. Continue Zosyn to cover any intra-abdominal infections. Continue to offer narcotics with Dilaudid and as needed for abdominal pain control. Overall condition is guarded. Stay in ICU. 02/27 Blood pressures still soft. Levophed off since last night. Maps greater than 65 maintaining. monitor urine output which is borderline low. Has had some liqui d stools. Levophed off since last night. Mild hypokalemia some short asymptomatic runs of V. tach 10 beats. Hypophosphatemia. 02/28 Trying to wean oxygen but still on 6 L. Question aspiration at some point versus fluid overload or HCAP. Patient does seem to be feeling better overall however. Blood pressure stable and restarting home beta-aniyah but will start at lower dose and titrate up. Does complain of a cough, relatively mild. Has chronic shortness of breath but no change. 03/01 Patient seen for feeling better. On 4 L nasal cannula overnight. No nausea vomiting. Tolerating oral diet. Leukocytosis noted on labs, check manual differential, patient afebrile. Chemistry pending 03/02 Patient seems to be tolerating oral diet. Nasal cannula at 3.5 L. We will decrease down to 2.5 and monitor. Mild leukocytosis but no bandemia and patient is afebrile ,,does not appear toxic , surgical site looks good. Finished a course of antibiotics yesterday Zosyn,. Mild hypokalemia Review of Systems: Pertinent positives as above. Denies headache/fever/chills/nausea/vomiting/chest pain/cough/dyspnea/diarrhea. PHYSICAL EXAM General: Alert, Awake, No acute Distress Eyes/N/T: EOMI, no scleral icterus, Head/Neck: neck supple, full ROM, CV: mildy tachy and irreg irreg, No murmurs, Pulm: mild diminished b/l, no wheezing today, nasal cannula in place Abd: soft, nontender, + BS x4, ostomy in place Ext: no clubbing/cyanosis/edema, nontender. Ventral abdominal surgical incision with wound vac in place, Ostomy bag in place Neuro: Alert, no focal deficits, moves all extremities, , sensations intact b/l upper/lower Psychiatric: Skin: warm/dry, normal color Constitutional Vitals: Vital Signs Temp Pulse Resp BP Pulse Ox O2 Del Method O2 Flow Rate 98.4 F 102 H 27 H 116/70 94 Nasal Cannula 4 03/02/23 04:00 03/02/23 07:29 03/02/23 04:00 03/02/23 04:00 03/02/23 04:00 03/02/23 04:00 03/02/23 04:00 Period Temp Pulse Resp BP Sys/Lovell Pulse Ox O2 Del Method O2 Flow Rate Last 24 Hr 98.2 F-99.4 F 86-126 8-27 83-116/61-87 91-97 Nasal Cannula- Nasal Cannula, Bubble Humidifier 2-4 Intake and Output 03/01/23 03/02/23 03/02/23 19:59 03:59 11:59 Intake Total 120 140 Output Total 1025 215 Balance -905 140 -215 Weight 62.006 kg 60.6 kg Intake & Output: Intake & Output 03/01/23 03/02/23 03/02/23 19:59 03:59 11:59 Intake Total 120 140 Output Total 1025 215 Balance -905 140 -215 Weight 62.006 kg 60.6 kg Intake: Oral 120 140 Output: Urine Catheter Amount 625 140 Stool 400 75 Other: Meal Magic cup Dinner Percent of Meal Consumed 75% 25% Feeding Ability Assist with Tray Set Up Assist with Tray Set Up Urine Appearance Clear Clear Uretheral (Michaels) Clear Urine Color Yellow Dark Yellow Uretheral (Michaels) Dark Yellow Stool Color Brown Stool Consistency Liquid OBJ DATA Labs 03/02/23 05:34 03/02/23 05:34 Labs: Abnormal Lab Results 03/02/23 03/01/23 03/01/23 05:34 08:55 08:55 WBC 12.7 H RBC 3.57 L Hgb 10.4 L Hct 32.5 L RDW 16.1 H Immature Gran % (Auto) 1.0 H Neut % (Auto) 81.4 H Lymph % (Auto) 7.4 L Lymph # (Auto) 0.94 L Sutter # (Auto) 0.93 H Seg Neutrophils % 83 H Lymphocytes % 6 L Immature Gran # 0.13 H Absolute Neutrophils 10.34 H RBC Morphology Abnormal A Polychromasia Few A Anisocytosis 1+ A Ovalocytes Few A Potassium Uric Acid 2.4 L Calcium 8.4 L Direct Bilirubin 0.3 H GGT 87 H Alkaline Phosphatase 200 H Lactate Dehydrogenase 241 H Total Protein Albumin 2.9 L Albumin/Globulin Ratio 03/01/23 02/28/23 02/27/23 05:29 05:07 08:07 WBC 12.0 H RBC 3.55 L 3.60 L Hgb 10.4 L 11.5 L Hct 32.6 L 35.3 L RDW 16.2 H 18.1 H Immature Gran % (Auto) 0.9 H Neut % (Auto) 81.2 H Lymph % (Auto) 6.8 L Lymph # (Auto) 0.82 L Sutter # (Auto) 0.97 H Seg Neutrophils % Lymphocytes % 8 L Immature Gran # 0.11 H Absolute Neutrophils 9.76 H RBC Morphology Abnormal A Polychromasia Anisocytosis 1+ A Ovalocytes Potassium 3.1 L Uric Acid 1.9 L Calcium 7.9 L Direct Bilirubin 0.4 H GGT 94 H Alkaline Phosphatase 182 H Lactate Dehydrogenase Total Protein 5.4 L Albumin 2.6 L Albumin/Globulin Ratio 0.9 L Meds: Medications Albuterol/Ipratropium (Ipratropium/Albuterol 3 Ml Ampul.Neb) 3 ml NEB Q4HP PRN PRN Reason: Shortness Of Breath Atorvastatin Calcium (Atorvastatin 20 Mg Tablet) 20 mg PO QDAY [facility] Last Admin: 03/01/23 09:04 Dose: 20 mg Dextrose (Dextrose 50% 50 Ml Vial) 0 ml IV UD PRN PRN Reason: Per Sliding Scale Diagnostic Test (Pha) (Accu-Chek 1 Each Strip) 1 each FS Q6 [facility] Last Admin: 03/02/23 05:37 Dose: 1 each Diphenhydramine HCl (Diphenhydramine 25 Mg Capsule) 25 mg PO HSP PRN PRN Reason: Insomnia Last Admin: 03/02/23 00:37 Dose: 25 mg Glucose (Dextrose 31 Gm Oral.Susp) 15 gm PO PRN PRN PRN Reason: Hypoglycemia Heparin Sodium (Porcine) (Heparin 5,000 Unit/Ml Vial) 5,000 unit SQ Q12 [facility] Last Admin: 03/01/23 20:23 Dose: 5,000 unit Hydromorphone HCl (Hydromorphone 0.5 Mg/0.5 Ml Syringe) 0.5 mg IV Q2HP PRN; Protocol PRN Reason: Per Pain Protocol Last Admin: 02/26/23 03:49 Dose: 0.5 mg Heparin Sodium/Sodium Chloride (Heparin/Ns) 500 mls @ 0 mls/hr IV .Q0M [facility]; Protocol Acetaminophen (Ofirmev) 650 mg in 65 mls @ 130 mls/hr IV Q6HP PRN; Protocol PRN Reason: PAIN/FEVER > 101 Last Infusion: 02/28/23 02:05 Dose: Infused Potassium Chloride 40 meq/ (Dextrose) 520 mls @ 130 mls/hr IV PRN PRN PRN Reason: Potassium < 3 Magnesium Sulfate (Magnesium Sulfate) 2 gm in 50 mls @ 50 mls/hr IV PRN PRN PRN Reason: Magnesium </+ 1.6 Insulin Human Lispro (Insulin Lispro 1 Unit/0.01 Ml Unit) 0 unit SQ Q6 [facility]; Protocol Last Admin: 03/02/23 05:37 Dose: Not Given Lidocaine (Lidocaine Patch) 1 patch TOPICAL DAILY@1000 [facility] Last Admin: 03/01/23 09:02 Dose: 1 patch Melatonin (Melatonin 3 Mg Tablet) 3 mg PO QPM@1900 [facility] Last Admin: 03/01/23 20:23 Dose: 3 mg Metoclopramide HCl (Metoclopramide 10 Mg/2 Ml Vial) 5 mg IV Q12 [facility] Last Admin: 03/01/23 20:23 Dose: 5 mg Metoprolol Succinate (Metoprolol Succinate 25 Mg Tab.Xl.24h) 25 mg PO DAILY [facility] Last Admin: 03/01/23 09:00 Dose: 25 mg Metoprolol Tartrate (Metoprolol Tartrate 5 Mg/5 Ml Vial) 5 mg IV Q2HP PRN PRN Reason: For a heart rate >110 Last Admin: 03/01/23 19:17 Dose: 5 mg Ondansetron HCl (Ondansetron 4 Mg/2 Ml Vial) 4 mg IV Q6HP PRN PRN Reason: Nausea And Vomiting Last Admin: 02/24/23 04:31 Dose: 4 mg Pantoprazole Sodium (Pantoprazole 40 Mg Tablet) 40 mg PO QAMAC [facility] Last Admin: 03/02/23 07:14 Dose: 40 mg Potassium Chloride (Potassium Chloride 20 Meq Tablet) 40 meq PO PRN PRN PRN Reason: Potassium is 3-3.5 Last Admin: 03/01/23 11:28 Dose: 40 meq Potassium Chloride (Potassium Chloride 20 Meq Tablet) 40 meq PO PRN PRN PRN Reason: Potassium < 3 Sodium Chloride (0.9 % Sodium Chloride 10 Ml Syringe) 10 ml IV Q8 [facility] Last Admin: 03/02/23 05:37 Dose: 10 ml Sodium Chloride (0.9 % Sodium Chloride 10 Ml Syringe) 10 ml IV UD PRN PRN Reason: Wound Healing Tamsulosin HCl (Tamsulosin 0.4 Mg Capsule) 0.4 mg PO QDAY [facility] Last Admin: 03/01/23 09:03 Dose: 0.4 mg ABG Interpretation ABG results: 02/23/23 14:39 ABG Methemoglobin 0.2 L VBG pH 7.45 H VBG pCO2 29.5 L VBG pO2 94.5 H VBG HCO3 20.0 L VBG Total CO2 20.9 L VBG O2 Saturation 88.5 H VBG Base Excess -3 L A/P Narrative A/P Narrative: A: *SBO: s/p Ex-lap 02/22 -per Surgeon *Acute on chronic hypoxic Respiratory Failure post-op: suspect aspiration + fluid overload, ?HCAP less likely -Extubated 02/23 -down to 2-4L NC *Pulmonary Infiltrates: suspected aspiration + fluid overload -some improvement with diuresis *Hypovolemia with lactic acidosis: improved *Shock w/lactic acidosis: 2/2 above -resolved *Leukocytosis: no bandemia/fever, appears nontoxic, clinically improving, did finish a course of zosyn *Acute delirium: improved *Hypokalemia/hypophosphatemia: *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 Willis for SBO -diet per surgery -empiric abx d/c -monitor cbc -f/u cxr with mild improvement -prn Nebs, IS/Acapella, RT -Monitor and replace electrolytes -Monitor renal function/UOP/ -restarted BB at lower dose for soft BP -supp O2 as per home regimen, prn nebs, home IH's -Frequent reorientations during the day and protected sleep during the night, Deleriuma precautions, -pt/ot -contflomax -ppx: Heparin (hold apixaban for now, restart when ok with surgery) / ppi Time Spent With Patient Time: Total time spent is greater than 50% in coordination of care (as documented) at patient's floor/unit and/or counseling patient: QUALITY Stroke Symptom Onset Unknown: No VTE Deep Vein Thrombosis/Pulmonary Embolism Present on Admission: No Restraints Restraint In Place: No
[2023-03-02 07:54] LABS: ALT/SGPT 19 U/L (<40); AST/SGOT 17 U/L (<40); Albumin 2.9 gm/dL (3.2-5.2); Alkaline Phosphatase 169 U/L (39-117); Bilirubin,Direct 0.3 mg/dL (<0.3); Bilirubin,Total 0.6 mg/dL (0.1-1.0); Blood Urea Nitrogen 16 mg/dL (8-23); Calcium 8.6 mg/dL (8.6-10.4); Carbon Dioxide 25 mmol/L (22-30); Chloride 104 mmol/L (96-108); Globulin 2.8 gm/dL (2.2-3.7); Glomerular Filtration Rate 90; Glucose 87 mg/dL (70-105); Lactate Dehydrogenase 228 U/L (135-225); Triglycerides 76 mg/dL (<150); Uric Acid 3.3 mg/dL (2.5-8.0)
[2023-03-02] MEDS: HEPARIN 5,000 UNIT/ML VIAL SQ SCH ×2 (08:40→20:15)
[2023-03-02] MEDS: TAMSULOSIN 0.4 MG CAPSULE PO SCH (08:40)
[2023-03-02] MEDS: METOCLOPRAMIDE 10 MG/2 ML VIAL IV SCH ×2 (08:41→20:15)
[2023-03-02] MEDS: ATORVASTATIN 20 MG TABLET PO SCH (08:41)
[2023-03-02] MEDS: METOPROLOL SUCCINATE 25 MG TAB.XL.24H PO SCH (08:41)
[2023-03-02] MEDS: POTASSIUM CHLORIDE 20 MEQ TABLET PO PRN (08:43)
[2023-03-02] MEDS: METOPROLOL TARTRATE 5 MG/5 ML VIAL IV PRN ×3 (08:59→23:46)
[2023-03-02] MEDS ORDERED: METOPROLOL SUCCINATE 25 MG TAB.XL.24H PO ONE (09:09)
[2023-03-02] MEDS: LIDOCAINE PATCH TOPICAL SCH (09:17)
--- NOTE | 2023-03-02 11:50 | General Surgery Progress Note ---
SUBJECTIVE Subjective Patient information: Note initiated : 03/02/23 at 11:49 am Service Date, if different from initiated Date: [] Patient: Fei Rodrigues 87 y/o M admitted on 02/19/23 for abdominal pain/nausea. Chief Complaint: [] Principal diagnosis: Small bowel obstruction Interval history: Tolerating diet without difficulty. No fevers chills nausea or vomiting. Constitutional Vitals: Vital Signs Temp Pulse Resp BP Pulse Ox O2 Del Method O2 Flow Rate 98.5 F 128 H 20 116/86 91 Nasal Cannula 4 03/02/23 08:00 03/02/23 08:00 03/02/23 08:00 03/02/23 08:00 03/02/23 08:00 03/02/23 08:00 03/02/23 08:00 Period Temp Pulse Resp BP Sys/Lovell Pulse Ox O2 Del Method O2 Flow Rate Last 24 Hr 98.4 F-99.4 F 86-128 8-27 83-116/63-87 91-97 Nasal Cannula- Nasal Cannula, Bubble Humidifier 2-4 Intake and Output 03/01/23 03/02/23 03/02/23 19:59 03:59 11:59 Intake Total 120 140 240 Output Total 1025 215 Balance -905 140 25 Weight 136 lb 11.2 oz 133 lb 9.6 oz Intake & Output: Intake & Output 03/01/23 03/02/23 03/02/23 19:59 03:59 11:59 Intake Total 120 140 240 Output Total 1025 215 Balance -905 140 25 Weight 136 lb 11.2 oz 133 lb 9.6 oz Intake: Nourishment/Supplement quantity 240 (ml) Oral 120 140 Output: Urine Catheter Amount 625 140 Stool 400 75 Other: Meal Magic cup Dinner Breakfast Percent of Meal Consumed 75% 25% 75% Feeding Ability Assist with Tray Set Up Assist with Tray Set Up Assist with Tray Set Up Nourishment/Supplement name Ensure Urine Appearance Clear Clear Uretheral (Michaels) Clear Clear Urine Color Yellow Yellow Uretheral (Michaels) Dark Yellow Dark Yellow Stool Color Brown Stool Consistency Liquid Exam: sleepy but conversant, no obvious toxicity or distress GI/Abdominal Additional comments: soft and non distended, non tender, Prevena wound care dressing removed. TENA drain removed. A/P Assessment and plan (1) Small bowel obstruction: Plan: Much improved. Anticipate SNF tomorrow. Status: Acute Time Spent With Patient Time: Total time spent is greater than 50% in coordination of care (as documented) at patient's floor/unit and/or counseling patient:
[2023-03-02] MEDS: MELATONIN 3 MG TABLET PO SCH (20:15)
[2023-03-03] MEDS: diphenhydrAMINE 25 MG CAPSULE PO PRN (02:55)
[2023-03-03] MEDS: 0.9 % SODIUM CHLORIDE 10 ML SYRINGE IV SCH ×2 (06:10→08:59)
[2023-03-03 06:43] LABS: Hematocrit 31.9 % (40.1-51.0); Hemoglobin 10.3 g/dL (13.7-17.5); Mean Cell Volume 90.9 fL (80.0-100.0); Mean Corpuscular HGB Conc 32.3 g/dL (31.0-36.0); Mean Platelet Volume 9.9 fL (8.8-12.5); Platelet Count 318 K/mcL (140-440); RBC 3.51 M/mcL (4.63-6.08); Red Cell Distribution Width 16.1 % (11.5-14.5); WBC 11.7 K/mcL (4.5-11.0)
[2023-03-03 07:05] LABS: ALT/SGPT 22 U/L (<40); AST/SGOT 21 U/L (<40); Albumin 2.8 gm/dL (3.2-5.2); Alkaline Phosphatase 156 U/L (39-117); Bilirubin,Direct 0.2 mg/dL (<0.3); Bilirubin,Total 0.5 mg/dL (0.1-1.0); Blood Urea Nitrogen 17 mg/dL (8-23); Calcium 8.4 mg/dL (8.6-10.4); Carbon Dioxide 29 mmol/L (22-30); Chloride 107 mmol/L (96-108); Globulin 2.8 gm/dL (2.2-3.7); Glomerular Filtration Rate 90; Glucose 93 mg/dL (70-105); Lactate Dehydrogenase 241 U/L (135-225); Triglycerides 70 mg/dL (<150); Uric Acid 3.3 mg/dL (2.5-8.0)
--- NOTE | 2023-03-03 07:23 | Internal Med Progress Note ---
SUBJECTIVE Subjective Patient information: Note initiated : 03/03/23 at 7:21 am Service Date, if different from initiated Date: [] Patient: Fei Rodrigues 87 y/o M admitted on 02/19/23 for abdominal pain/nausea. Chief Complaint: [] Principal diagnosis: Small bowel obstruction Interval history: HPI: Patient presents the ED with nausea vomiting and abdominal pain overnight. Patient's had small bowel obstruction in the past and stated that it felt very similar. 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 Follows with Dr. Mcfarland and Dr. Cohen. Patient denies chest pain or shortness of breath. Patient states that he had developing nausea vomiting and crampy abdominal pain started 1 to 2 days ago. Patient denies chest pain shortness of breath coughing. Also had an episode of A-fib RVR in the ED and was given diltiazem with improvement. Patient does have history of atrial fibrillation. Case is discussed with Dr. Willis and patient was thus admitted. Currently n.p.o. with NG tube in place. 02/20 Patient having bowel movements overnight. Patient did have a little bit of nausea vomiting. Abdominal pain improving. Heart rate in the 90s. 02/21: Patient was agitated and pulled his NG tube/ IV access overnight. Now the NG tube and IV access were replaced. Hand mittens on. There was no bowel movement overnight. Continue NG tube, n.p.o. status with IV fluid, and symptoms management. Continue Lopressor IV both scheduled and PRN for heart rate control. Continue to hold Eliquis for now because of the NG tube and because of the fact that surgery might eventually be indicated. Overall condition guarded. 02/22: Still does not have a bowel movement overnight. Patient is on 2L/min oxygen. Initial blood culture grew Leuconostoc species in one set one bottle. Dr. Willis is ordering a small bowel follow-through with contrast today. Continue NG tube, n.p.o. status with IV fluid, and symptoms management. Continue Lopressor IV both scheduled and PRN for heart rate control. Continue to hold Eliquis for now because of the NG tube and because of the fact that surgery might eventually be indicated. Overall condition guarded. 02/23: Dr. Willis took patient to the OR on evening of 02/22 for ex lap with lysis of adhesion. Patient transferred to ICU after returning back from the OR. Patient intubated and mechanically ventilated with the following settings: volume AC, RR 18, Vt 500, PEEP 5, FiO2 30%. Fentanyl and Propofol drip. Cardizem drip. Levophed drip. D5 1/2NS w/ KCL 20mEq @125cc/hr. NPO. No ostomy bag output. Zosyn to cover any intra-abdominal infection. Daily sedation holiday for extubation trial. Overall condition extremely guarded 02/24: Patient was extubated yesterday afternoon. Fentanyl and propofol drip were off. Cardizem drip was also off. Patient is currently still on Levophed drip. NG tube in place with only minimal output. Ostomy bag no output. He is on 4 L/min nasal cannula oxygen. Patient has adequate urine output overnight. Patient is complaining of moderate pain around his abdominal incision sites. Continue D5 half NS with KCl 20 mEq at 125 cc/min. We will check with Dr. Willis regarding timing for feeding either enterically or TPN. Continue pain control with Ultram and and Dilaudid IV, respectively for different severity of pain. Continue Zosyn for coverage of any intra-abdominal infection. Overall condition still extremely guarded. Stay in ICU. Physical therapy evaluation and treatment. 02/25: Status post centerline placement with initiation of TPN yesterday. Levophed drip still running. Fever Tmax 38.0 overnight. Please refer to the flow sheet for NG, TENA, ostomy, and urine output. Currently on 7L/min nasal cannula oxygen. Patient is complaining of mild to moderate diffused abdominal pain. Mild shortness of breath. Denies any subjective fever, chills, or diaphoresis this morning. Reduced rate of normal saline continuous infusions from 75 cc/h to 50 cc/h. Checks x-ray to rule out pulmonary edema. Continue supplemental oxygen therapy. Continue TPN for nutritional support. Over Mab and Dilaudid for postsurgical pain controlled. Continue Zosyn while monitoring culture results. Rest of the post surgical management as per primary team. Physical therapy evaluation and treatment. Overall condition extremely guarded. Stay in ICU. 02/26: Patient ripped off his central line last evening. Dr. Mcfarland d/c NG tube last night. He is currently on Levophed drip 4mcg/min. Ostomy bag output went to the 5 cc overnight shift. Good urine output. He is on 3 L/min nasal cannula oxygen. Patient denies no pain in his abdomen. He denies any nausea or vomiting. He denies any shortness of breath. He is feeling good right now. He is tolerating sips with ice chips. We will check with general surgeon before advancing his diet. Transitions from IV Lopressor to oral metoprolol succinate for heart rate controlled. Continue to hold Eliquis until cleared by the surgeons. Continue Zosyn to cover any intra-abdominal infections. Continue to offer narcotics with Dilaudid and as needed for abdominal pain control. Overall condition is guarded. Stay in ICU. 02/27 Blood pressures still soft. Levophed off since last night. Maps greater than 65 maintaining. monitor urine output which is borderline low. Has had some liqui d stools. Levophed off since last night. Mild hypokalemia some short asymptomatic runs of V. tach 10 beats. Hypophosphatemia. 02/28 Trying to wean oxygen but still on 6 L. Question aspiration at some point versus fluid overload or HCAP. Patient does seem to be feeling better overall however. Blood pressure stable and restarting home beta-aniyah but will start at lower dose and titrate up. Does complain of a cough, relatively mild. Has chronic shortness of breath but no change. 03/01 Patient seen for feeling better. On 4 L nasal cannula overnight. No nausea vomiting. Tolerating oral diet. Leukocytosis noted on labs, check manual differential, patient afebrile. Chemistry pending 03/02 Patient seems to be tolerating oral diet. Nasal cannula at 3.5 L. We will decrease down to 2.5 and monitor. Mild leukocytosis but no bandemia and patient is afebrile ,,does not appear toxic , surgical site looks good. Finished a course of antibiotics yesterday Zosyn,. Mild hypokalemia 03/03 Patient sitting up in chair eating breakfast. Feeling much better. On 2 L nasal cannula. Likely discharge today. Leukocytosis improved. Potassium better. Review of Systems: Pertinent positives as above. Denies headache/fever/chills/nausea/vomiting/chest pain/cough/dyspnea/diarrhea. PHYSICAL EXAM General: Alert, Awake, No acute Distress Eyes/N/T: EOMI, no scleral icterus, Head/Neck: neck supple, full ROM, CV: mildy tachy and irreg irreg, No murmurs, Pulm: mild diminished b/l, no wheezing today, nasal cannula in place Abd: soft, nontender, + BS x4, ostomy in place Ext: no clubbing/cyanosis/edema, nontender. Ventral abdominal surgical incision with wound vac in place, Ostomy bag in place Neuro: Alert, no focal deficits, moves all extremities, , sensations intact b/l upper/lower Psychiatric: Skin: warm/dry, normal color Constitutional Vitals: Vital Signs Temp Pulse Resp BP Pulse Ox O2 Del Method O2 Flow Rate 98.1 F 84 22 90/60 96 Nasal Cannula 2.5 03/03/23 04:33 03/03/23 04:33 03/03/23 04:33 03/03/23 04:33 03/03/23 04:33 03/03/23 04:33 03/03/23 04:33 Period Temp Pulse Resp BP Sys/Lovell Pulse Ox O2 Del Method O2 Flow Rate Last 24 Hr 97.9 F-99.9 F 84-128 17-28 90-116/60-86 91-100 Nasal Cannula- Nasal Cannula 2.5-4 Intake and Output 03/02/23 03/03/23 03/03/23 19:59 03:59 11:59 Intake Total 360 320 Output Total 350 Balance 360 -30 Weight 62.142 kg Intake & Output: Intake & Output 03/02/23 03/03/23 03/03/23 19:59 03:59 11:59 Intake Total 360 320 Output Total 350 Balance 360 -30 Weight 62.142 kg Intake: Nourishment/Supplement quantity 240 120 (ml) Oral 120 200 Output: Urine Catheter Amount 275 Stool 75 Other: Meal Dinner Nourishment/Supplement Percent of Meal Consumed 50% Feeding Ability Independent Nourishment/Supplement name House supplement Ensure Urine Appearance Sediment Uretheral (Michaels) Clear Urine Color Dark Yellow Dark Natalya Uretheral (Michaels) Dark Yellow Stool Color Brown Stool Consistency Soft OBJ DATA Labs 03/03/23 05:57 03/03/23 05:57 Labs: Abnormal Lab Results 03/03/23 03/03/23 03/02/23 05:57 05:57 05:34 WBC 11.7 H 12.7 H RBC 3.51 L 3.57 L Hgb 10.3 L 10.4 L Hct 31.9 L 32.5 L RDW 16.1 H 16.1 H Immature Gran % (Auto) 1.0 H Neut % (Auto) 81.4 H Lymph % (Auto) 7.4 L Lymph # (Auto) 0.94 L Bacon # (Auto) 0.93 H Seg Neutrophils % Lymphocytes % Immature Gran # 0.13 H Absolute Neutrophils 10.34 H RBC Morphology Polychromasia Anisocytosis Ovalocytes Potassium Creatinine 0.6 L Uric Acid Calcium 8.4 L Direct Bilirubin GGT Alkaline Phosphatase 156 H Lactate Dehydrogenase 241 H Total Protein 5.6 L Albumin 2.8 L 03/02/23 03/01/23 03/01/23 05:34 08:55 08:55 WBC RBC Hgb Hct RDW Immature Gran % (Auto) Neut % (Auto) Lymph % (Auto) Lymph # (Auto) Bacon # (Auto) Seg Neutrophils % 83 H Lymphocytes % 6 L Immature Gran # Absolute Neutrophils RBC Morphology Abnormal A Polychromasia Few A Anisocytosis 1+ A Ovalocytes Few A Potassium 3.1 L Creatinine 0.6 L Uric Acid 2.4 L Calcium 8.4 L Direct Bilirubin 0.3 H 0.3 H GGT 70 H 87 H Alkaline Phosphatase 169 H 200 H Lactate Dehydrogenase 228 H 241 H Total Protein 5.7 L Albumin 2.9 L 2.9 L 03/01/23 05:29 WBC 12.0 H RBC 3.55 L Hgb 10.4 L Hct 32.6 L RDW 16.2 H Immature Gran % (Auto) 0.9 H Neut % (Auto) 81.2 H Lymph % (Auto) 6.8 L Lymph # (Auto) 0.82 L Bacon # (Auto) 0.97 H Seg Neutrophils % Lymphocytes % Immature Gran # 0.11 H Absolute Neutrophils 9.76 H RBC Morphology Polychromasia Anisocytosis Ovalocytes Potassium Creatinine Uric Acid Calcium Direct Bilirubin GGT Alkaline Phosphatase Lactate Dehydrogenase Total Protein Albumin Meds: Medications Albuterol/Ipratropium (Ipratropium/Albuterol 3 Ml Ampul.Neb) 3 ml NEB Q4HP PRN PRN Reason: Shortness Of Breath Atorvastatin Calcium (Atorvastatin 20 Mg Tablet) 20 mg PO QDAY ORLIN Last Admin: 03/02/23 08:41 Dose: 20 mg Diphenhydramine HCl (Diphenhydramine 25 Mg Capsule) 25 mg PO HSP PRN PRN Reason: Insomnia Last Admin: 03/03/23 02:55 Dose: 25 mg Heparin Sodium (Porcine) (Heparin 5,000 Unit/Ml Vial) 5,000 unit SQ Q12 [facility] Last Admin: 03/02/23 20:15 Dose: 5,000 unit Hydromorphone HCl (Hydromorphone 0.5 Mg/0.5 Ml Syringe) 0.5 mg IV Q2HP PRN; Protocol PRN Reason: Per Pain Protocol Last Admin: 02/26/23 03:49 Dose: 0.5 mg Heparin Sodium/Sodium Chloride (Heparin/Ns) 500 mls @ 0 mls/hr IV .Q0M [facility]; Protocol Acetaminophen (Ofirmev) 650 mg in 65 mls @ 130 mls/hr IV Q6HP PRN; Protocol PRN Reason: PAIN/FEVER > 101 Last Infusion: 02/28/23 02:05 Dose: Infused Potassium Chloride 40 meq/ (Dextrose) 520 mls @ 130 mls/hr IV PRN PRN PRN Reason: Potassium < 3 Magnesium Sulfate (Magnesium Sulfate) 2 gm in 50 mls @ 50 mls/hr IV PRN PRN PRN Reason: Magnesium </+ 1.6 Lidocaine (Lidocaine Patch) 1 patch TOPICAL DAILY@1000 [facility] Last Admin: 03/02/23 09:17 Dose: Not Given Melatonin (Melatonin 3 Mg Tablet) 3 mg PO QPM@1900 [facility] Last Admin: 03/02/23 20:15 Dose: 3 mg Metoclopramide HCl (Metoclopramide 10 Mg/2 Ml Vial) 5 mg IV Q12 [facility] Last Admin: 03/02/23 20:15 Dose: 5 mg Metoprolol Succinate (Metoprolol Succinate 25 Mg Tab.Xl.24h) 50 mg PO DAILY [facility] Metoprolol Tartrate (Metoprolol Tartrate 5 Mg/5 Ml Vial) 5 mg IV Q2HP PRN PRN Reason: For a heart rate >110 Last Admin: 03/02/23 23:46 Dose: 5 mg Ondansetron HCl (Ondansetron 4 Mg/2 Ml Vial) 4 mg IV Q6HP PRN PRN Reason: Nausea And Vomiting Last Admin: 02/24/23 04:31 Dose: 4 mg Pantoprazole Sodium (Pantoprazole 40 Mg Tablet) 40 mg PO QAMAC [facility] Last Admin: 03/02/23 07:14 Dose: 40 mg Potassium Chloride (Potassium Chloride 20 Meq Tablet) 40 meq PO PRN PRN PRN Reason: Potassium is 3-3.5 Last Admin: 03/02/23 08:43 Dose: 40 meq Potassium Chloride (Potassium Chloride 20 Meq Tablet) 40 meq PO PRN PRN PRN Reason: Potassium < 3 Sodium Chloride (0.9 % Sodium Chloride 10 Ml Syringe) 10 ml IV Q8 [facility] Last Admin: 03/03/23 06:10 Dose: 10 ml Sodium Chloride (0.9 % Sodium Chloride 10 Ml Syringe) 10 ml IV UD PRN PRN Reason: Wound Healing Tamsulosin HCl (Tamsulosin 0.4 Mg Capsule) 0.4 mg PO QDAY [facility] Last Admin: 03/02/23 08:40 Dose: 0.4 mg ABG Interpretation ABG results: 02/23/23 14:39 ABG Methemoglobin 0.2 L VBG pH 7.45 H VBG pCO2 29.5 L VBG pO2 94.5 H VBG HCO3 20.0 L VBG Total CO2 20.9 L VBG O2 Saturation 88.5 H VBG Base Excess -3 L A/P Narrative A/P Narrative: A: *SBO: s/p Ex-lap 02/22 -per Surgeon *Acute on chronic hypoxic Respiratory Failure post-op: suspect aspiration + fluid overload, ?HCAP less likely -Extubated 02/23 -down to 2-4L NC *Pulmonary Infiltrates: suspected aspiration + fluid overload -some improvement with diuresis *Hypovolemia with lactic acidosis: improved *Shock w/lactic acidosis: 2/2 above -resolved *Leukocytosis: no bandemia/fever, appears nontoxic, clinically improving, did finish a course of zosyn -improving *Acute delirium: improved *Hypokalemia/hypophosphatemia: *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 Willis for SBO -diet per surgery -monitor cbc -prn Nebs, IS/Acapella, RT -Monitor and replace electrolytes -Monitor renal function/UOP/ -restarted BB -supp O2 as per home regimen, prn nebs, home IH's -Frequent reorientations during the day and protected sleep during the night, Deleriuma precautions, -pt/ot -contflomax -ppx: Heparin (hold apixaban for now, restart when ok with surgery) / ppi Time Spent With Patient Time: Total time spent is greater than 50% in coordination of care (as documented) at patient's floor/unit and/or counseling patient: Subsequent: Total time with patient: 35 - 49 minutes QUALITY Stroke Symptom Onset Unknown: No VTE Deep Vein Thrombosis/Pulmonary Embolism Present on Admission: No Restraints Restraint In Place: No
--- NOTE | 2023-03-03 07:31 | Discharge Summary ---
Discharge Provider Provider IMPORTANT FOLLOW-UP INFORMATION FOR PCP: Patient information: Note initiated : 03/03/23 at 7:30 am Service Date, if different from initiated Date: [] Patient: Fei Rodrigues 87 y/o M admitted on 02/19/23 for abdominal pain/nausea. Chief Complaint: [] Date of admission: 02/19/23 04:49 Discharge date: 03/03/23 Primary care physician: Sai Elizabeth DO Consults: 02/19/23 04:10 Consult to Physician [CONS] Routine Comment: Assist with medical project management intern Provider: Ranjeet Saravia Reason For Exam: Physician to Consult 02/20/23 09:55 Consult to Physician [CONS] Routine Comment: Consulting Provider: Chris Willis Reason For Exam: Physician to Consult 02/23/23 15:41 Consult to Physician [CONS] Routine Comment: snf referral [facility]ing [facility] Reason For Exam: Physician to Consult COURSE Hospital Course Hospital course: Patient admitted for partial small bowel obstruction, underwent NG tube de compression with a small bowel follow-through. Small bowel follow-through showed high-grade obstruction therefore patient was taken to the operating room for exploratory laparotomy with lysis of adhesions. This was an extensive lysis of adhesions. Postop patient did well, had some of his chronic cardiac problems which were managed by the hospitalist. He is now tolerating diet, ostomy is functioning and he is ready to be discharged to a residential facility Discharge diagnosis: Small bowel obstruction status post exploratory laparotomy Time Spent with Patient Time attestation: Total time spent providing and/or coordinating discharge services: Time spent: Greater than 30 minutes Physical Examination Vital Signs Vital signs: Temp Pulse Resp BP Pulse Ox O2 Del Method O2 Flow Rate 98.1 F 84 22 90/60 96 Nasal Cannula 2.5 03/03/23 04:33 03/03/23 04:33 03/03/23 04:33 03/03/23 04:33 03/03/23 04:33 03/03/23 04:33 03/03/23 04:33 Discharge Plan Patient/Caregiver Discharge Instructions Activity: increase activity as tolerated Diet: Regular Diet Activity Restrictions/Additional Instructions: Activity as tolerated. Patient may shower. Prescriptions: Continued tamsulosin 0.4 mg capsule 0.4 mg PO QDAY Qty: 90 3RF acetaminophen [Tylenol] 325 mg tablet 650 mg PO QDAY PRN (Reason: Pain) atorvastatin 20 mg tablet 20 mg PO QDAY apixaban 5 mg tablet 5 mg PO BID metoprolol succinate 50 mg tablet extended release 24 hr 50 mg PO QDAY magnesium oxide 400 mg magnesium capsule 400 mg PO QDAY (DME) Oxygen See Rx Instructions Rx Instructions: Per patient's son, patient has been using oxygen at all times.-dt metoclopramide HCl 5 mg tablet 5 mg PO TID Qty: 90 2RF Rx Instructions: administer 30 minutes before meals polyethylene glycol 3350 [Miralax] 17 gram powder in packet 17 g PO BID Qty: 100 0RF Follow Up Plan Follow up with: Chris Willis MD [Physician] - Sai Elizabeth DO [Primary Care Provider] - Patient Disposition: Xfer SNF Prognosis: Fair Discharge Orders: Discharge Order (Routine); Ordered 03/03/23 Ordered By: Chris Willis Pending Pending Pending: Resuscitation Status Do Not Resuscitate Diet Dysphagia Level 4 Pureed Foods Start TueMarch 01 1433 Atorvastatin Calcium (Atorvastatin 20 Mg Tablet) 20 mg PO QDAY [facility] Last Admin: 03/02/23 08:41 Dose: 20 mg Documented By: Admin: 03/01/23 09:04 Dose: 20 mg Documented By: Admin: 02/28/23 09:49 Dose: 20 mg Documented By: Admin: 02/27/23 09:46 Dose: 20 mg Documented By: Admin: 02/26/23 08:26 Dose: 20 mg Documented By: WAYLON Diphenhydramine HCl (Diphenhydramine 25 Mg Capsule) 25 mg PO HSP PRN PRN Reason: Insomnia Last Admin: 03/03/23 02:55 Dose: 25 mg Documented By: Admin: 03/02/23 00:37 Dose: 25 mg Documented By: [email or web address] Admin: 02/27/23 21:08 Dose: 25 mg Documented By: Admin: 02/26/23 20:19 Dose: 25 mg Documented By: MICHELLE Heparin Sodium (Porcine) (Heparin 5,000 Unit/Ml Vial) 5,000 unit SQ Q12 [facility] Last Admin: 03/02/23 20:15 Dose: 5,000 unit Documented By: Admin: 03/02/23 08:40 Dose: 5,000 unit Documented By: Admin: 03/01/23 20:23 Dose: 5,000 unit Documented By: Admin: 03/01/23 09:03 Dose: 5,000 unit Documented By: Admin: 02/28/23 20:21 Dose: 5,000 unit Documented By: Admin: 02/28/23 09:47 Dose: 5,000 unit Documented By: Admin: 02/27/23 21:08 Dose: 5,000 unit Documented By: Admin: 02/27/23 09:46 Dose: 5,000 unit Documented By: Admin: 02/26/23 20:20 Dose: 5,000 unit Documented By: MICHELLE Hydromorphone HCl (Hydromorphone 0.5 Mg/0.5 Ml Syringe) 0.5 mg IV Q2HP PRN; Protocol PRN Reason: Per Pain Protocol Last Admin: 02/26/23 03:49 Dose: 0.5 mg Documented By: Admin: 02/25/23 11:10 Dose: 0.5 mg Documented By: Admin: 02/24/23 11:39 Dose: 0.5 mg Documented By: Admin: 02/24/23 09:37 Dose: 0.5 mg Documented By: WAYLON Acetaminophen (Ofirmev) 650 mg in 65 mls @ 130 mls/hr IV Q6HP PRN; Protocol PRN Reason: PAIN/FEVER > 101 Last Infusion: 02/28/23 02:05 Dose: 0 mls/hr Documented By: Admin: 02/28/23 01:35 Dose: 130 mls/hr Documented By: Infusion: 02/27/23 18:25 Dose: 0 mls/hr Documented By: Admin: 02/27/23 17:45 Dose: 130 mls/hr Documented By: Infusion: 02/27/23 10:50 Dose: 0 mls/hr Documented By: Admin: 02/27/23 10:11 Dose: 130 mls/hr Documented By: Infusion: 02/26/23 23:15 Dose: 0 mls/hr Documented By: Admin: 02/26/23 22:45 Dose: 130 mls/hr Documented By: [email or web address] Infusion: 02/26/23 09:55 Dose: 0 mls/hr Documented By: Admin: 02/26/23 08:59 Dose: 130 mls/hr Documented By: Infusion: 02/25/23 16:25 Dose: 0 mls/hr Documented By: Admin: 02/25/23 15:45 Dose: 130 mls/hr Documented By: Infusion: 02/25/23 09:27 Dose: 0 mls/hr Documented By: Admin: 02/25/23 08:12 Dose: 200 mls/hr Documented By: Infusion: 02/24/23 21:30 Dose: 0 mls/hr Documented By: Admin: 02/24/23 20:52 Dose: 130 mls/hr Documented By: Infusion: 02/24/23 08:25 Dose: 0 mls/hr Documented By: Admin: 02/24/23 07:15 Dose: 130 mls/hr Documented By: Infusion: 02/24/23 02:22 Dose: 0 mls/hr Documented By: Admin: 02/24/23 00:09 Dose: 130 mls/hr Documented By: Infusion: 02/23/23 17:45 Dose: 0 mls/hr Documented By: Admin: 02/23/23 16:20 Dose: 130 mls/hr Documented By: WAYLON Lidocaine (Lidocaine Patch) 1 patch TOPICAL DAILY@1000 [facility] Last Admin: 03/02/23 09:17 Dose: Not Given Documented By: Admin: 03/01/23 09:02 Dose: 1 patch Documented By: Admin: 02/28/23 10:14 Dose: Not Given Documented By: Admin: 02/27/23 10:19 Dose: 1 patch Documented By: Admin: 02/26/23 11:16 Dose: 1 patch Documented By: Admin: 02/25/23 11:29 Dose: 1 patch Documented By: BENJIE Melatonin (Melatonin 3 Mg Tablet) 3 mg PO QPM@1900 [facility] Last Admin: 03/02/23 20:15 Dose: 3 mg Documented By: Admin: 03/01/23 20:23 Dose: 3 mg Documented By: Admin: 02/28/23 20:21 Dose: 3 mg Documented By: TEMO Metoclopramide HCl (Metoclopramide 10 Mg/2 Ml Vial) 5 mg IV Q12 [facility] Admin: 03/02/23 20:15 Dose: 5 mg Documented By: Admin: 03/02/23 08:41 Dose: 5 mg Documented By: Admin: 03/01/23 20:23 Dose: 5 mg Documented By: Admin: 03/01/23 09:03 Dose: 5 mg Documented By: Admin: 02/28/23 20:20 Dose: 5 mg Documented By: Admin: 02/28/23 09:47 Dose: 5 mg Documented By: Admin: 02/27/23 21:08 Dose: 5 mg Documented By: Admin: 02/27/23 09:47 Dose: 5 mg Documented By: Admin: 02/26/23 20:19 Dose: 5 mg Documented By: Admin: 02/26/23 08:10 Dose: 5 mg Documented By: Admin: 02/25/23 22:48 Dose: 5 mg Documented By: Admin: 02/25/23 09:31 Dose: 5 mg Documented By: Admin: 02/24/23 20:37 Dose: 5 mg Documented By: Admin: 02/24/23 08:42 Dose: 5 mg Documented By: Admin: 02/23/23 20:07 Dose: 5 mg Documented By: Admin: 02/23/23 08:19 Dose: 5 mg Documented By: Admin: 02/22/23 21:11 Dose: 5 mg Documented By: Admin: 02/22/23 09:12 Dose: 5 mg Documented By: Admin: 02/21/23 20:57 Dose: 5 mg Documented By: Admin: 02/21/23 08:13 Dose: 5 mg Documented By: Admin: 02/20/23 21:02 Dose: 5 mg Documented By: Admin: 02/20/23 08:28 Dose: 5 mg Documented By: Admin: 02/19/23 20:21 Dose: 5 mg Documented By: Admin: 02/19/23 08:45 Dose: 5 mg Documented By: SOPHIE Metoprolol Tartrate (Metoprolol Tartrate 5 Mg/5 Ml Vial) 5 mg IV Q2HP PRN PRN Reason: For a heart rate >110 Last Admin: 03/02/23 23:46 Dose: 5 mg Documented By: Admin: 03/02/23 08:59 Dose: 5 mg Documented By: Admin: 03/01/23 19:17 Dose: 5 mg Documented By: Admin: 02/27/23 12:15 Dose: 5 mg Documented By: Admin: 02/26/23 09:19 Dose: 5 mg Documented By: Admin: 02/26/23 00:50 Dose: 5 mg Documented By: Admin: 02/24/23 05:32 Dose: 5 mg Documented By: Admin: 02/22/23 23:22 Dose: 5 mg Documented By: Admin: 02/22/23 00:59 Dose: 5 mg Documented By: Admin: 02/20/23 19:46 Dose: 5 mg Documented By: Admin: 02/20/23 17:08 Dose: 5 mg Documented By: Admin: 02/19/23 23:09 Dose: 5 mg Documented By: Admin: 02/19/23 11:58 Dose: 5 mg Documented By: SOPHIE Ondansetron HCl (Ondansetron 4 Mg/2 Ml Vial) 4 mg IV Q6HP PRN PRN Reason: Nausea And Vomiting Last Admin: 02/24/23 04:31 Dose: 4 mg Documented By: Admin: 02/22/23 10:42 Dose: 4 mg Documented By: Admin: 02/21/23 04:25 Dose: 4 mg Documented By: Admin: 02/20/23 15:08 Dose: 4 mg Documented By: Admin: 02/20/23 10:07 Dose: 4 mg Documented By: Admin: 02/19/23 23:09 Dose: 4 mg Documented By: [email or web address] Pantoprazole Sodium (Pantoprazole 40 Mg Tablet) 40 mg PO QAMAC [facility] Last Admin: 03/02/23 07:14 Dose: 40 mg Documented By: Admin: 03/01/23 09:05 Dose: 40 mg Documented By: SHAUN Potassium Chloride (Potassium Chloride 20 Meq Tablet) 40 meq PO PRN PRN PRN Reason: Potassium is 3-3.5 Last Admin: 03/02/23 08:43 Dose: 40 meq Documented By: Admin: 03/01/23 11:28 Dose: 40 meq Documented By: Admin: 02/28/23 10:13 Dose: 40 meq Documented By: SHAUN Sodium Chloride (0.9 % Sodium Chloride 10 Ml Syringe) 10 ml IV Q8 [facility] Admin: 03/03/23 06:10 Dose: 10 ml Documented By: Admin: 03/02/23 20:16 Dose: 10 ml Documented By: Admin: 03/02/23 13:36 Dose: 10 ml Documented By: Admin: 03/02/23 05:37 Dose: 10 ml Documented By: Admin: 03/01/23 20:23 Dose: 10 ml Documented By: Admin: 03/01/23 13:36 Dose: 10 ml Documented By: Admin: 03/01/23 05:32 Dose: 10 ml Documented By: Admin: 02/28/23 20:21 Dose: 10 ml Documented By: Admin: 02/28/23 15:06 Dose: 10 ml Documented By: Admin: 02/28/23 06:43 Dose: 10 ml Documented By: Admin: 02/27/23 21:16 Dose: 10 ml Documented By: Admin: 02/27/23 16:00 Dose: 10 ml Documented By: Admin: 02/27/23 05:30 Dose: 10 ml Documented By: Admin: 02/26/23 22:45 Dose: 10 ml Documented By: Admin: 02/26/23 12:57 Dose: Not Given Documented By: Admin: 02/26/23 06:38 Dose: Not Given Documented By: Admin: 02/25/23 22:50 Dose: Not Given Documented By: Admin: 02/25/23 14:26 Dose: 10 ml Documented By: Admin: 02/25/23 05:59 Dose: 10 ml Documented By: Admin: 02/24/23 20:37 Dose: 10 ml Documented By: Admin: 02/24/23 14:35 Dose: Not Given Documented By: Admin: 02/24/23 05:33 Dose: 10 ml Documented By: Admin: 02/23/23 20:08 Dose: 10 ml Documented By: Admin: 02/23/23 14:20 Dose: 10 ml Documented By: Admin: 02/23/23 05:06 Dose: 10 ml Documented By: Admin: 02/22/23 21:12 Dose: 10 ml Documented By: Admin: 02/22/23 14:48 Dose: 10 ml Documented By: Admin: 02/22/23 05:09 Dose: Not Given Documented By: Admin: 02/21/23 20:57 Dose: Not Given Documented By: Admin: 02/21/23 16:45 Dose: 10 ml Documented By: Admin: 02/21/23 05:44 Dose: Not Given Documented By: Admin: 02/20/23 21:02 Dose: 10 ml Documented By: Admin: 02/20/23 13:44 Dose: Not Given Documented By: Admin: 02/20/23 06:17 Dose: Not Given Documented By: Admin: 02/19/23 20:22 Dose: 10 ml Documented By: Admin: 02/19/23 14:20 Dose: Not Given Documented By: Admin: 02/19/23 05:54 Dose: 10 ml Documented By: PORTIA Tamsulosin HCl (Tamsulosin 0.4 Mg Capsule) 0.4 mg PO QDAY [facility] Admin: 03/02/23 08:40 Dose: 0.4 mg Documented By: Admin: 03/01/23 09:03 Dose: 0.4 mg Documented By: Admin: 02/28/23 09:47 Dose: 0.4 mg Documented By: Admin: 02/27/23 09:46 Dose: 0.4 mg Documented By: Admin: 02/26/23 08:26 Dose: 0.4 mg Documented By: WAYLON Shift Summary 03/03/23 06:14 Shift Summary by Tere Snyder Patient A/Ox4, pleasant and cooperative. Tachycardia, PRN lopressor given x1. Soft BP, pt asymptomatic, denies dizziness or lightheadedness. On 2.5L O2, titrated down from 3L. Ambulated to bed from chair at beginning of shift, SBA, FWW, GB. F/C putting out minimal amount. IV SL. Hard time sleeping throughout night, PRN benadryl given. Ostomy put out 75ml, soft stool. BT active, rosie to midline incision intact. business administrator- Afib with PVC's. Initialized on 03/03/23 06:14 - END OF NOTE
[2023-03-03 08:45] LABS: Anisocytosis 1+ (None Seen); Band Neutrophils % 1 % (0-10); Eosinophils % (Manual) 1 % (0-7); Lymphocytes % 6 % (15-49); Monocytes % (Manual) 8 % (1-12); Platelet Estimate NORMAL (Normal); RBC Morphology ABNORMAL (Normal); Segmented Neutrophils % 84 % (38-78)
[2023-03-03] MEDS: METOCLOPRAMIDE 10 MG/2 ML VIAL IV SCH (08:58)
[2023-03-03] MEDS: PANTOPRAZOLE 40 MG TABLET PO SCH (08:58)
[2023-03-03] MEDS: HEPARIN 5,000 UNIT/ML VIAL SQ SCH (08:58)
[2023-03-03] MEDS: TAMSULOSIN 0.4 MG CAPSULE PO SCH (09:00)
[2023-03-03] MEDS ORDERED: METOPROLOL SUCCINATE 25 MG TAB.XL.24H PO SCH (09:00)
[2023-03-03] MEDS: ATORVASTATIN 20 MG TABLET PO SCH (09:00)
[2023-03-03] MEDS: LIDOCAINE PATCH TOPICAL SCH (09:00)
== END 2023-03-03 11:18 | DRG 335 ==
LOC: ED 00:59 → MEDSUR 04:49 → ICU 02-22 23:08 → MEDSUR 03-02 14:38
PROVIDERS: ADMIT Surgery; ATTEND Surgery